=== PATIENT | female | born 1975 | race Caucasian/White ===

== ENCOUNTER → 2017-12-23 17:08 | Outpatient (CLI) | payer MEDICARE, BC, SELFPAY | PROVIDERS: Family Provider Family Medicine; PCP Family Medicine; Visit Provider Otolaryngology | DX: J32.9 Chronic sinusitis, unspecified (principal) | CPT/HCPCS: 87070; 87077; 87205 ==

== ENCOUNTER 2018-12-03 22:20 | Emergency (ER) | payer MEDICARE, BC, SELFPAY ==
[2018-12-03 22:22] VITALS: BP 143/103; PULSE 82; RESP 16; TEMP 37.4; O2SAT 98; BMI 22.1
--- NOTE | 2018-12-03 22:52 | ED.VISSUMM ---
- ER Visit Summary Date of Service: 12/03/18 Chief Complaint: Left knee pain and fever History of Present Illness: The patient is a 43 F history of renal transplant x2, hypertension, lupus. Patient had knee surgery done at [facility] in [place]. She stayed overnight and was discharged earlier today. States she had knee pain since the surgery. Today developed a fever as high as 101. Recently she did have a son that had viral syndrome. She denies any other complaints other than knee pain. No cough. No sore throat. No earache. No abdominal pain. No dysuria. Physical Examination: Well-appearing middle-age female. Vital signs are stable. Here her temperature is 99.3. She has been using Tylenol at home. She does not look septic or toxic. She is in no distress. HEENT exam unremarkable. Posterior pharynx moist and pink. No erythema or exudate. TMs are normal. Neck nontender no lymphadenopathy. Lungs clear to auscultation bilaterally. Heart regular rhythm no murmur. Rate about 80. Abdomen is soft and nontender. Normal bowel sounds no peritoneal signs. Extremities both upper and right lower extremities are unremarkable. With normal range of motion. I removed a large dressing from the left leg. Her left knee is swollen not unexpected after having knee surgery. The incision is dry and clean. The left knee is significantly warm to the touch. On the lateral aspect it is mildly red. She is able to do limited flexion but has discomfort with range of motion. Distal to her left knee surgery the calf is nontender. Left foot is neurovascularly intact with a palpable DP pulse. Neurologically she is awake and alert with no focal motor deficits. Test Results: CBC White count of 3.9. Hemoglobin 9.2 patient is chronically anemic and hemoglobin normally runs around 10. No bands. Chemistries unremarkable except creatinine 1.65 which is her baseline renal insufficiency. His sedimentation rate is normal at 10. Chest x-ray two-view shows no acute abnormality. No infiltrate. Urinalysis is pending. Emergency Department Course and Treatment: Patient is complex due to her renal transplant and being on immunosuppressant meds. Also the recent history of a family member with a viral syndrome however this patient does not have any viral symptoms. The knee is swollen which is common and expected after the surgery she had. Repeat exam at the patient came back from x-ray she is resting is much more comfortable after IV pain medication. The knees been now out of the dressing for some period of time and the swelling is unchanged. There is no cellulitis. The incision is dry and clean. And the warmth has decreased. This does not look infected. And there is no signs of a septic joint. Treatment Plan: I spoke to the orthopedic physician mine environmental engineer carmela from [facility] (Dr. Holt). He feels this is most likely a postop fever. He does not want me to start on any antibiotics. And he will send a message to the patient's orthopedic surgeon to ensure close follow-up this week. Discussed all this with the family. Continue her current pain regiment. Disposition: Discharge Impression: Acute fever status post left knee surgery Immunocompromised due to history of a renal transplant History of lupus This note was generated with [employer] dictation software. It may contain incorrect words, spelling, and punctuation that were not noted in review of the chart prior to signing ED Disposition - Plan for ED Patient: Chief Complaint: Fever Referrals: Enrique Cardoso MD [Primary Care Provider] -
--- NOTE | 2018-12-03 23:02 | ED.DCSUM_ITS ---
- ER Visit Summary Date of Service: 12/03/18 Chief Complaint: Left knee pain and fever History of Present Illness: The patient is a 43 F history of renal transplant x2, hypertension, lupus. Patient had knee surgery done at [facility] in [place]. She stayed overnight and was discharged earlier today. States she had knee pain since the surgery. Today developed a fever as high as 101. Recently she did have a son that had viral syndrome. She denies any other complaints other than knee pain. No cough. No sore throat. No earache. No abdominal pain. No dysuria. Physical Examination: Well-appearing middle-age female. Vital signs are stable. Here her temperature is 99.3. She has been using Tylenol at home. She does not look septic or toxic. She is in no distress. HEENT exam unremarkable. Posterior pharynx moist and pink. No erythema or exudate. TMs are normal. Neck nontender no lymphadenopathy. Lungs clear to auscultation bilaterally. Heart regular rhythm no murmur. Rate about 80. Abdomen is soft and nontender. Normal bowel sounds no peritoneal signs. Extremities both upper and right lower extremities are unremarkable. With normal range of motion. I removed a large dressing from the left leg. Her left knee is swollen not unexpected after having knee surgery. The incision is dry and clean. The left knee is significantly warm to the touch. On the lateral aspect it is mildly red. She is able to do limited flexion but has discomfort with range of motion. Distal to her left knee surgery the calf is nontender. Left foot is neurovascularly intact with a palpable DP pulse. Neurologically she is awake and alert with no focal motor deficits. Test Results: CBC White count of 3.9. Hemoglobin 9.2 patient is chronically anemic and hemoglobin normally runs around 10. No bands. Chemistries unremarka ble except creatinine 1.65 which is her baseline renal insufficiency. His sedimentation rate is normal at 10. Chest x-ray two-view shows no acute abnormality. No infiltrate. Urinalysis is pending. Emergency Department Course and Treatment: Patient is complex due to her renal transplant and being on immunosuppressant meds. Also the recent history of a family member with a viral syndrome however this patient does not have any viral symptoms. The knee is swollen which is common and expected after the surgery she had. Repeat exam at the patient came back from x-ray she is resting is much more comfortable after IV pain medication. The knees been now out of the dressing for some period of time and the swelling is unchanged. There is no cellulitis. The incision is dry and clean. And the warmth has decreased. This does not look infected. And there is no signs of a septic joint. Treatment Plan: I spoke to the orthopedic physician arson and bomb investigator tongiovanna from [facility] (Dr. Holt). He feels this is most likely a postop fever. He does not want me to start on any antibiotics. And he will send a message to the patient's orthopedic surgeon to ensure close follow-up this week. Discussed all this with the family. Continue her current pain regiment. Disposition: Discharge Impression: Acute fever status post left knee surgery Immunocompromised due to history of a renal transplant History of lupus This note was generated with [employer] dictation software. It may contain incorrect words, spelling, and punctuation that were not noted in review of the chart prior to signing ED Disposition - Plan for ED Patient: Chief Complaint: Fever Referrals: Enrique Cardoso MD [Primary Care Provider] -
[2018-12-03 23:26] LABS: Absolute Lymphocyte Count 1.29 X10^3/ul (0.83-4.51); Absolute Neutrophil Count 2.1 X10^3/uL (2.0-7.7); Basophil# 0.01 X10^3/uL; Basophil% 0.3 % (0-1); Eosinophil# 0.04 X10^3/uL; Hematocrit 28.5 % (37-47); Hemoglobin 9.2 g/dl (12.0-15.0); Lymphocyte # 1.29 X10^3/ul (4.0); Lymphocyte % 32.9 % (19-41); Mean Corp Hgb Conc 32.3 g/gl (32-36); Mean Corpuscular Hgb 29.6 pg (27.0-32.0); Mean Corpuscular Volume 91.6 fL (81-99); Mean Platelet Vol. 9.3 fl (6.2-12.0); Monocyte# 0.49 X10^3/uL; Monocyte% 12.5 % (0-10); Neutrophil # 2.08 X10^3/uL (2.7-7.7); POSITIVE COUNT NO; POSITIVE DIFFERENTIAL NO; POSITIVE MORPHOLOGY NO; Platelet Count 160 K/mm3 (150-450); RBC Distribution Width SD 41.6 fl (35.1-43.9); Red Blood Count 3.11 M/mm3 (4.2-5.4); White Blood Count 3.9 K/mm3 (4.4-11.0)
[2018-12-03] MEDS: HYDROmorphone 1 MG/ML Syringe IV (23:26)
[2018-12-03] MEDS: Ondansetron 4 MG/2 ML Vial IV (23:26)
[2018-12-03 23:36] LABS: Anion Gap 9 (5-15); BUN 28 mg/dL (7-18); Calcium,Total 8.9 mg/dL (8.5-10.1); Chloride 111 mmol/L (98-107); Creatinine, Serum 1.65 mg/dL (0.55-1.02); EST Glomerular Filtration Rate 36 mL/min (>60); Est Glom Filt Rate - Afr Amer 43 mL/min (>60); Estimated Creatinine Clearance 35.99 ml/min; Glucose 93 mg/dL (74-106); Potassium 3.9 mmol/L (3.5-5.1); Sodium Level 142 mmol/L (136-145)
[2018-12-03 23:37] LABS: Erythrocyte Sedimentation Rate 10 mm/hr (0-20)
--- NOTE | 2018-12-03 23:45 | RAD_ITS ---
HISTORY: S/P PARTIAL KNEE REPLACEMENT YESTERDAY. UNCONTROLLED PAIN AND NEW ONSET FEVER. HX OF KIDNEY TRANSPLANT. EXAM: XR Chest 2 Views: COMPARISON: None FINDINGS: # of images incl. paperwork: 2 LINES/DEVICES: Right subclavian central venous catheter, tip distal SVC. LUNGS: Radiographically clear. No consolidation, edema or effusion. No pneumothorax. MEDIASTINUM AND CARDIOVASCULAR STRUCTURES: Cardiac silhouette not enlarged. Central airways and mediastinal contour are unremarkable. BONES AND SOFT TISSUES: Unremarkable. RAD/Chest PA and Lateral IMPRESSION: No radiographic evidence of acute cardiopulmonary disease. at 0004 Reported and signed by: Pee Deng MD Electronically Signed: Pee Deng, at 0:03 EST Tel , Service support ,
--- NOTE | 2018-12-04 00:01 | ED.RN ---
[facility] contacted for transfer
[2018-12-04 00:05] LABS: Bacteria 0 SEEN /hpf (None Seen); Mucous, Urine 0 SEEN /hpf (<or=2+); Red Blood Cells-Urine 0 SEEN /hpf (0-5)
[2018-12-04 00:16] LABS: Color, Urine Yellow (Yellow); Glucose, Dipstick Normal (Normal); Ketone-Dipstick Negative (Negative); Leukocyte Esterase-Dipstick 500 /ul (Negative); Nitrite-Dipstick Negative (Negative); Occult Blood-Urine Negative /ul (Negative); Protein-Dipstick 100 mg/dl (Negative); Urine Bilirubin Dipstick Negative (Negative); Urine Clarity Clear (Clear); Urine Urobilinogen Normal (Normal)
[2018-12-04 00:18] LABS: Squamous Epithelial Cells - UA 5-10 SEEN /hpf (5-10); White Blood Cells 0-5 SEEN /hpf (0-5)
--- NOTE | 2018-12-04 00:20 | ED.DEP ---
ED Disposition - Plan for ED Patient: Disposition: Home or Assisted Living Chief Complaint: Fever Additional Instructions: Ice and elevate your left knee to decrease pain and swelling. Continue your current pain medications. You may use up to 2 Percocet every 4 hours. Call and follow-up with your [facility] orthopedic surgeon on Thursday. Return to the emergency department if feeling worse.
--- NOTE | 2018-12-04 00:24 | DCINST.ED_ITS ---
ED Disposition - Plan for ED Patient: Disposition: Home or Assisted Living Chief Complaint: Fever Additional Instructions: Ice and elevate your left knee to decrease pain and swelling. Continue your current pain medications. You may use up to 2 Percocet every 4 hours. Call and follow-up with your [facility] orthopedic surgeon on Thursday. Return to the emergency department if feeling worse.
[2018-12-04 01:00] VITALS: BP 144/99; PULSE 81; RESP 18; O2SAT 95
--- NOTE | 2018-12-04 01:01 | ED.RN ---
PORT D/C PER PROTOCOL.
--- OUTSIDE RECORDS SUMMARY | 2019-02-07 08:52 | XMS RPT_ITS ---
:1975 Author Organization OHIP Care Team Providers Name Role Phone MELVIN, GALLITO Admitting Unavailable MINIACI, GALLITO Attending Unavailable MINIACI, GALLITO Admitting Unavailable MINIACI, GALLITO Attending Unavailable FATICA, EDGARDO Referring Unavailable MASCI, SCHUYLER A Referring Unavailable MASCI, SCHUYLER A Referring Unavailable MASCI, SCHUYLER A Referring Unavailable MASCI, SCHUYLER A Referring Unavailable MASCI, SCHUYLER A Referring Unavailable MASCI, SCHUYLER A Referring Unavailable MASCI, SCHUYLER A Referring Unavailable MASCI, SCHUYLER Vigil Referring Unavailable FATICA, EDGARDO Attending Unavailable FATICA, EDGARDO Referring Unavailable MASCI, SCHUYLER A Referring Unavailable FATICA, EDGARDO Referring Unavailable FATICA, EDGARDO Referring Unavailable MASCI, SCHUYLER A Referring Unavailable MASCI, SCHUYLER Vigil Referring Unavailable FATICA, EDGARDO Referring Unavailable MASCI, SCHUYLER A Referring Unavailable MASCI, SCHUYLER A Referring Unavailable FATICA, EDGARDO Referring Unavailable MASCI, SCHUYLER A Referring Unavailable MASCI, SCHUYLER A Referring Unavailable MASCI, SCHUYLER A Referring Unavailable FATICA, EDGARDO Referring Unavailable MINIACI, GALLITO Attending Unavailable MASCI, SCHUYLER A Referring Unavailable MASCI, SCHUYLER A Referring Unavailable MASCI, SCHUYLER Vigil Referring Unavailable MINIACI, GALLITO Referring Unavailable MINIACI, GALLITO Attending Unavailable MASCI, SCHUYLER A Referring Unavailable FATICA, EDGARDO Referring Unavailable MASCI, SCHUYLER A Referring Unavailable MASCI, SCHUYLER A Referring Unavailable MASCI, SCHUYLER A Referring Unavailable FATICA, EDGARDO Referring Unavailable MASCI, SCHUYLER A Referring Unavailable FATICA, EDGARDO Referring Unavailable MASCI, SCHUYLER A Referring Unavailable MASCI, SCHUYLER A Referring Unavailable FATICA, EDGARDO Referring Unavailable MASCI, SCHUYLER A Referring Unavailable FATICA, EDGARDO Referring Unavailable MASCI, SCHUYLER A Referring Unavailable MASCI, SCHUYLER A Referring Unavailable MASCI, SCHUYLER A Referring Unavailable MASCI, SCHUYLER Vigil Attending Unavailable MASCI, SCHUYLER Vigil Referring Unavailable MASCI, SCHUYLER A Referring Unavailable MASCI, SCHUYLER A Referring Unavailable FATICA, EDGARDO Attending Unavailable FATICA, EDGARDO Referring Unavailable MASCI, SCHUYLER A Referring Unavailable FATICA, EDGARDO Referring Unavailable MASCI, SCHUYLER A Referring Unavailable MASCI, SCHUYLER A Referring Unavailable MASCI, SCHUYLER A Referring Unavailable FATICA, EDGARDO Referring Unavailable FATICA, EDGARDO Referring Unavailable FATICA, EDGARDO Referring Unavailable MINIACI, GALLTIO Referring Unavailable CABANFAUZIA (PA) Referring Unavailable MASCI, SCHUYLER A Referring Unavailable MASCI, SCHUYLER A Referring Unavailable MASCI, SCHUYLER A Referring Unavailable FATICA, EDGARDO Referring Unavailable FATICA, EDGARDO Referring Unavailable CLARISSA LEONARD ([place]) Attending Unavailable MINIACI, GALLITO Referring Unavailable FATICA, EDGARDO Referring Unavailable FATICA, EDGARDO Referring Unavailable MASCI, SCHUYLER A Referring Unavailable FATICA, EDGARDO Referring Unavailable MASCI, SCHUYLER A Referring Unavailable SANDY TRAVIS (JESÚ[place]) Attending Unavailable MINIACI, GALLITO Referring Unavailable MASCI, SCHUYLER A Referring Unavailable FATICA, EDGARDO Referring Unavailable FATICA, EDGARDO Referring Unavailable MASCI, SCHUYLER A Referring Unavailable MINIACI, GALLITO Attending Unavailable MINIACI, GALLITO Referring Unavailable MINIACI, GALLITO Referring Unavailable MINIACI, GALLITO Attending Unavailable MINIACI, GALLITO Referring Unavailable MASCI, SCHUYLER A Referring Unavailable FATICA, EDGARDO Referring Unavailable MASCI, SCHUYLER A Referring Unavailable MINIACI, GALLITO Referring Unavailable Enrique Cardoso Primary Care Unavailable Raimundo Cooper Attending Unavailable Storm Khanna Attending Unavailable Enrique Cardoso Primary Care Unavailable PROBLEMS PROBLEMS DATE TYPE CONDITION / CODE ATTENDING STATUS SOURCE 12/02/2018 Active Other acute MINIACI, Active [facility] postprocedural pain GALLITO Other [place] / G89.18(ICD-10) Repository 10/19/2018 Active Unilateral primary NA Active [facility] osteoarthritis, [place] unspecified knee / Repository M17.10(ICD-10) 10/13/2018 Active Chronic kidney NA Active [facility] disease, stage 4 [place] (severe) / Repository N18.4(ICD-10) 08/30/2018 Active Loose body in knee, MINIACI, Active [facility] unspecified knee / GALLITO Other [place] M23.40(ICD-10) Repository 08/24/2018 Active Osteonecrosis, MINIACI, Active [facility] unspecified / GALLITO Other [place] M87.9(ICD-10) Repository 08/30/2018 Active Encounter for other NA Active [facility] preprocedural [place] examination / Repository Z01.818(ICD-10) 02/24/2015 Active Kidney transplant EDGARDO NGUYEN Active [facility] status / [place] Z94.0(ICD-10) Repository 04/13/2018 Active Osteomyelitis, NA Active [facility] unspecified / [place] M86.9(ICD-10) Repository 01/19/2018 Active Encounter for EDGARDO NGUYEN Active [facility] screening for other [place] disorder / Repository Z13.89(ICD-10) 12/17/2017 Active Encounter for NA Active [facility] aftercare following [place] other organ Repository transplant / Z48.298(ICD-10) 12/17/2017 Active Encounter for NA Active [facility] therapeutic drug [place] level monitoring / Repository Z51.81(ICD-10) 12/17/2017 Active 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 Active [facility] (current) drug [place] therapy / Repository Z79.899(ICD-10) 12/17/2017 Active Vitamin D NA Active [facility] deficiency, [place] unspecified / Repository E55.9(ICD-10) 12/17/2017 Active Other specified NA Active [facility] hypothyroidism / [place] E03.8(ICD-10) Repository 12/17/2017 Active Viral infection, NA Active [facility] unspecified / [place] B34.9(ICD-10) Repository 12/17/2017 Active Chronic kidney NA Active [facility] disease, unspecified [place] / N18.9(ICD-10) Repository 12/17/2017 Active Anemia in chronic NA Active [facility] kidney disease / [place] D63.1(ICD-10) Repository 12/17/2017 Active Unknown / NA Active [facility] UNK(Unknown) [place] Repository PROCEDURES PROCEDURES No Procedure Records FoundRESULTS RESULTS EMERGENCY DEPARTMENT Observed: 12/04/2018 Status: F Source: [place] SUMMARY 12:28 AM [facility] [place] [facility] Medical Records Department [address] [place] [address] [place] [address] Emergency Department Summary 12/03/18 2252 MR#: [id number] Acct: [id number] Name: ASHOK SAUCEDA Rep #: [id number] : 1975 43 From: Raimundo Cooper MD PCP: Enrique Cardoso MD Status: REG ER ADDENDUM by Raimundo Cooper MD on 12/04/18 at 0028 Urinalysis return was normal. Patient will be discharged home. 12/04/18 0028 Date Raimundo Cooper MD cc: Enrique Cardoso MD; Enrique Cardoso MD * Signed - ER Visit Summary Date of Service: 12/03/18 Chief Complaint: Left knee pain and fever History of Present Illness: The patient is a 43 F history of renal transplant x2, hypertension, lupus. Patient had knee surgery done at [facility] in [place]. She stayed overnight and was discharged earlier today. States she had knee pain since the surgery. Today developed a fever as high as 101. Recently she did have a son that had viral syndrome. She denies any other complaints other than knee pain. No cough. No sore throat. No earache. No abdominal pain. No dysuria. Physical Examination: Well-appearing middle-age female. Vital signs are stable. Here her temperature is 99.3. She has been using Tylenol at home. She does not look septic or toxic. She is in no distress. HEENT exam unremarkable. Posterior pharynx moist and pink. No erythema or exudate. TMs are normal. Neck nontender no lymphadenopathy. Lungs clear to auscultation bilaterally. Heart regular rhythm no murmur. Rate about 80. Abdomen is soft and nontender. Normal bowel sounds no peritoneal signs. Extremities both upper and right lower extremities are unremarkable. With normal range of motion. I removed a large dressing from the left leg. Her left knee is swollen not unexpected after having knee surgery. The incision is dry and clean. The left knee is significantly warm to the touch. On the lateral aspect it is mildly red. She is able to do limited flexion but has discomfort with range of motion. Distal to her left knee surgery the calf is nontender. Left foot is neurovascularly intact with a palpable DP pulse. Neurologically she is awake and alert with no focal motor deficits. Test Results: CBC White count of 3.9. Hemoglobin 9.2 patient is chronically anemic and hemoglobin normally runs around 10. No bands. Chemistries unremarkable except creatinine 1.65 which is her baseline renal insufficiency. His sedimentation rate is normal at 10. Chest x-ray two-view shows no acute abnormality. No infiltrate. Urinalysis is pending. Emergency Department Course and Treatment: Patient is complex due to her renal transplant and being on immunosuppressant meds. Also the recent history of a family member with a viral syndrome however this patient does not have any viral symptoms. The knee is swollen which is common and expected after the surgery she had. Repeat exam at the patient came back from x-ray she is resting is much more comfortable after IV pain medication. The knees been now out of the dressing for some period of time and the swelling is unchanged. There is no cellulitis. The incision is dry and clean. And the warmth has decreased. This does not look infected. And there is no signs of a septic joint. Treatment Plan: I spoke to the orthopedic physician metal bonder carmela from [facility] (Dr. Holt). He feels this is most likely a postop fever. He does not want me to start on any antibiotics. And he will send a message to the patient's orthopedic surgeon to ensure close follow-up this week. Discussed all this with the family. Continue her current pain regiment. Disposition: Discharge Impression: Acute fever status post left knee surgery Immunocompromised due to history of a renal transplant History of lupus This note was generated with [employer] dictation software. It may contain incorrect words, spelling, and punctuation that were not noted in review of the chart prior to signing ED Disposition - Plan for ED Patient: Chief Complaint: Fever Referrals: Enrique Cardoso MD [Primary Care Provider] - What to do if you have Problems For any increased pain, shortness of breath, bleeding, nausea or vomiting, chest pain, or any unexpected problems, contact your Primary Care Provider. Call [facility] ([phone]) or report to the closest Emergency Room. Call 911 if necessary. 12/04/18 0026 <Electronically signed by Raimundo Cooper MD> Date Raimundo Cooper MD Cosigner Signature (If Indicated): Date CC: Enrique Cardoso MD; Enrique Cardoso MD DISCHARGE INSTRUCTION Observed: 12/04/2018 Status: F Source: [place] 12:26 AM [facility] [place] [facility] Medical Records Department [address] [place] [address] Discharge Instruction 12/04/18 0020 MR#: [id number] Acct: [id number] Name: ASHOK SAUCEDA Rep #: [id number] : 1975 43 From: Raimundo Cooper MD PCP: Enrique Cardoso MD Status: REG ER ED Disposition - Plan for ED Patient: Disposition: Home or Assisted Living Chief Complaint: Fever Additional Instructions: Ice and elevate your left knee to decrease pain and swelling. Continue your current pain medications. You may use up to 2 Percocet every 4 hours. Call and follow-up with your [facility] orthopedic surgeon on Thursday. Return to the emergency department if feeling worse. What to do if you have Problems For any increased pain, shortness of breath, bleeding, nausea or vomiting, chest pain, or any unexpected problems, contact your Primary Care Provider. Call [facility] ([phone]) or report to the closest Emergency Room. Call 911 if necessary. 12/04/18 0026 <Electronically signed by Raimundo Cooper MD> Date Raimundo Cooper MD Cosigner Signature (If Indicated): Date CC: Enrique Cardoso MD; Enrique Cardoso MD URINALYSIS, COMPLETE Collected: 12/04/2018 Status: F Source: [place] 12:02 AM [facility] [place] Order Comment: How was Urine Obtained? CLEAN CATCH TYPE CODE TESTS RESULT OUT OF RANGE REFERENCE UNITS LAB L400.3000 Yellow COLOR Normal Yellow LAB L400.3050 Clear Normal CLARITY Clear LAB L400.3200 Normal mg/dl Normal GLUCOSE, UR Normal LAB L400.3300 Negative mg/dL Normal BILIRUBIN URINE Negative LAB L400.3400 Negative mg/dl Normal KETONE UR Negative LAB L400.3465 1.002-1.030 Normal SP.GR. DIPSTX 1.020 LAB L400.3550 5.0 - 8.0 pH UR Normal 6.0 LAB L400.3600 Negative mg/dl High PROT DIPSTX 100 LAB L400.3700 Normal mg/dl Normal UROBILI Normal LAB L400.3750 Negative Normal NITRITE UR Negative LAB L400.3780 Negative /ul Normal OCCULT BLOOD-UR Negative LAB L400.3800 Negative /ul High LEUK ESTERASE 500 LAB L400.4050 0-5 /hpf WBC Normal 0-5 SEEN LAB L400.4100 0-5 /hpf 0 Normal RBC-UA SEEN LAB L400.4150 5-10 /hpf SQUAM Normal EPI 5-10 SEEN LAB L400.4300 None Seen /hpf 0 Normal BACTERIA SEEN LAB L400.4350 <or=2+ /hpf 0 Normal MUCUS, URINE SEEN Performed By: #### L400.0001 #### [facility] [address] [place], [place], [address] Observed: 12/03/2018 Status: F Source: [place] CULTURE, BLOOD (WB) 11:22 PM [facility] No growth in 5 days. Performed By: #### M200.1000 #### [facility] [address] [place], [place], [address] Observed: 12/03/2018 Status: F Source: [place] CULTURE, BLOOD (WB) 11:16 PM [facility] No growth in 5 days. Performed By: #### M200.1000 #### [facility] [address] [place], [place], [address] CBC W/DIFF, AUTOMATED Collected: 12/03/2018 Status: F Source: [place] 11:14 PM [facility] [place] TYPE CODE TESTS RESULT OUT OF RANGE REFERENCE UNITS LAB L100.1000 4.4-11.0 K/mm3 Low WBC 3.9 LAB L100.1200 4.2-5.4 M/mm3 Low RBC 3.11 LAB L100.1300 12.0-15.0 g/dl Low HGB 9.2 LAB L100.1400 37-47 % Low HCT 28.5 LAB L100.1500 81-99 fL Normal MCV 91.6 LAB L100.1600 27.0-32.0 pg Normal MCH 29.6 LAB L100.1700 32-36 g/gl Normal MCHC 32.3 LAB L100.1810 11.6-14.6 % Normal RDW CV 13.0 LAB L100.1820 35.1-43.9 fl Normal RDW SD 41.6 LAB L100.1900 150-450 K/mm3 Normal PLT 160 LAB L100.2000 6.2-12.0 fl Normal MPV 9.3 LAB L100.2100 47-70 % Normal NEUT% 53.0 LAB L100.2200 19-41 % Normal LY% 32.9 LAB L100.2300 0-10 % High MONO% 12.5 LAB L100.2400 0-5 % Normal EO% 1.0 LAB L100.2500 0-1 % Normal BASO% 0.3 LAB L100.2550 0.0-0.9 % Normal IM GRAN % 0.300 Result Comment: IG% - Immature Granulocytes (promyelocytes, myelocytes and metamyelocytes) > 1% indicates that a LEFT SHIFT is Present. LAB L100.2620 2.0-7.7 X10 3/uL Normal Absolute Neut 2.1 LAB L100.2720 0.83-4.51 X10 3/ul Normal Absolute Lymph 1.29 Performed By: #### L100.0100, L101.9900 #### [facility] [address], [address] ERYTHROCYTE SED RATE Collected: 12/03/2018 Status: F Source: [place] 11:14 PM [facility] [place] TYPE CODE TESTS RESULT OUT OF RANGE REFERENCE UNITS LAB L102.0000 0-20 mm/hr Normal SED RATE 10 Performed By: #### L100.0100, L101.9900 #### [facility] [address] [place], [address] BASIC METABOLIC Collected: 12/03/2018 Status: F Source: [place] PROFILE (BMP) 11:14 PM [facility] [place] TYPE CODE TESTS RESULT OUT OF RANGE REFERENCE UNITS LAB L501.0100 74-106 mg/dL Normal GLU 93 Result Comment: Please note revised GLUCOSE reference range effective 2017. LAB L501.1000 7-18 mg/dL High BUN 28 LAB L501.1100 0.55-1.02 mg/dL High CREAT,SERUM 1.65 Result Comment: The validity of the calculated GFR AND GFRAA in patients over 70 years has not been determined. Clinical correlation is essential. LAB L501.1110 >60 mL/min Low EST GFR 36 Result Comment: Non- GFR Calc LAB L501.1115 >60 mL/min Low EST GFR - AA 43 Result Comment: GFR Calc LAB L501.1255 ml/min Normal Estimated CRCL 35.99 LAB L501.1300 10-20 RATIO Normal BUN/CRE 17.0 LAB L501.2200 8.5-10 mg/dL Normal .1 CA 8.9 LAB L501.5300 136-14 mmol/L Normal 5 NA 142 LAB L501.5600 3.5-5. mmol/L Normal 1 K 3.9 LAB L501.5900 98-107 mmol/L High CL 111 LAB L501.6100 21.0-3 mmol/L Normal 2.0 CO2 22.0 LAB L501.6200 5-15 Normal GAP 9 Performed By: #### L500.2500 #### [facility] [address] [place], [address] CHEST PA AND LATERAL Observed: 12/03/2018 Status: F Source: [place] 10:52 PM [facility] [place] [facility] Imaging Services [address] [place] [address] Chest PA and Lateral MR#: [id number] Acct: [id number] Name: ASHOK SAUCEDA Rep #: [id number] : 1975 F 43 From: Pee Deng MD PCP: Enrique Cardoso MD Status: REG ER Study: Chest PA and Lateral Date of Exam: 12/03/18 Exam# [id number] Ordering Dr: Raimundo Cooper MD HISTORY: S/P PARTIAL KNEE REPLACEMENT YESTERDAY. UNCONTROLLED PAIN AND NEW ONSET FEVER. HX OF KIDNEY TRANSPLANT. EXAM: XR Chest 2 Views: COMPARISON: None FINDINGS: # of images incl. paperwork: 2 LINES/DEVICES: Right subclavian central venous catheter, tip distal SVC. LUNGS: Radiographically clear. No consolidation, edema or effusion. No pneumothorax. MEDIASTINUM AND CARDIOVASCULAR STRUCTURES: Cardiac silhouette not enlarged. Central airways and mediastinal contour are unremarkable. BONES AND SOFT TISSUES: Unremarkable. RAD/Chest PA and Lateral IMPRESSION: No radiographic evidence of acute cardiopulmonary disease. at 0004 Reported and signed by: Pee Deng MD Electronically Signed: Pee Deng, at 0:03 EST Tel , Service support , CC: Enrique Cardoso MD; Raimundo Cooper MD Molding And Trim Installer: Signed NURSING PROG Observed: 12/03/2018 Status: COMPLETED Source: [place] 3:06 PM CLINIC OTHER CAMPUS REPOSITORY HNO ID: [id number] Author: Nancy (Rn) JOSH Guan Service: (none) Author Type: Registered Nurse Type: Nursing Progress Note Filed: 12/03/2018 5:07 PM Note Text: Nursing Progress Note Patient Name: Ashok Sauceda Patient Location: [id number]/-[id number]* Daily Note:1336 Pt tearful at this time. Stating that she is in a lot of pain still. Stated that she wants to be honest and took another oxycodone 15 minutes after we gave her one because it didn't work. and patient concerned with patient going home with this much pain. Lisbet HOUSING ASSISTANT ordered 2 [place] but d/c because pt will not be able to filled so d/c. Paged Kirill ESPINOSA. 2260 Kirill ESPINOSA returned page. Stated to page Fellow that rounded on pt this am. Paged Natali Fellow. [phone] returned page. Paged Dr. Virk. 1432 [address] returned page. Paged Dr. Roy. This note was completed by: Nancy Guan RN THERAPY NT Observed: 12/03/2018 Status: COMPLETED Source: [place] 12:29 PM CLINIC OTHER CAMPUS REPOSITORY HNO ID: [id number] Author: Juliet (Pt) Landon Service: Physical Therapy Author Type: Physical Therapist Type: Therapy (PT/OT/Speech/Resp) Filed: 12/03/2018 12:36 PM Note Text: Physical Therapy Evaluation SERVICE DATE: 12/03/2018 SERVICE TIME: 1000 to 1038 ROOM: [place] [address] Recommended Discharge Disposition: Outpatient Physical Therapy (as deemed appropriate by ortho MD) Anticipated Discharge Needs: Physical Assist at Home Physical Assist at Home for: Cleaning;Laundry;Shopping;Transportation Recommended Discharge Equipment: Wheeled Walker PT Recommendations to Nursing: Ambulate with device;To bathroom;Transfer to/from chair;OOB for Meals;With assist of 1 person Device: Wheeled Walker PT 6 Clicks Score: 22 Precautions/Activity Restrictions: Weight Bearing Restrictions Extremity With Weight Bearing Restricted: Left Lower Extremity Left Lower Extremity Weight Bearing Status: NWB (x 48 hours then WBAT) Per ortho note: NWB for 48 hours, thereafter WBAT Start range of motion at toes, ankle pumps and isometric quad sets today Gentle range of motion at knee at 48 hours post op ASSESSMENT : Patient presents with left diagnostic arthroscopy, lateral femoral condyle resurfacing. Requires skilled PT for gait/stair training and patient education to maximize functional [place] and safety for return to home with support of spouse as needed. Patient Disposition at Start of Session: Supine in Bed;Call [facility] in Reach Patient Disposition at End of Session: Supine in Bed;Call Stewart in Reach Tolerated Full Session (pain) Physical Therapy Problem List: Decreased Range Of Motion;Functional Mobility Impairment;Pain Patient /Caregiver Goals: Go Home Goals for Plan of Care: Able to perform HEP with: Independent Transfer supine to/from sit with: Independent Transfer sit to/from stand with: Independent Ambulate with: Modified Independent Distance: 50 ft Device: Crutch(es);Wheeled Walker Ambulate up and down steps with: Supervision Number of steps: 2 Device: Crutch(es);Rail Car transfer with: Verbal Cues Only Rehab Potential: Excellent PLAN: Treatment Frequency (times per week): 7 Current admission Treatment Interventions: Education;Functional Mobility Training Plan of Care developed with: Patient TREATMENT INTERVENTIONS: Therapy Diagnosis: Abnormalities of gait and mobility-other Interventions Provided: Evaluation;Therapeutic Exercise (40293);Therapeutic Activity (51907);Gait Training (22839) $ Evaluation-Low (60602) Billed Units: 1 unit Therapeutic Exercise (77406) Treatment Minutes: 8 1 unit Skilled Intervention(s): Instruction in therapeutic exercise for antiembolic ex, performed AP, QS with 3 second hold and GS x 10 reps each. Verbal and tactile cuing provided for proper performance, also educated on addition of gentle ROM ex to knee after 48 hours. Issued written HEP for same Therapeutic Activity (96520) Treatment Minutes: 8 1 unit Skilled Intervention(s): Instructed patient in supine to sit pushing with upper extremities to sit up Instructed patient in sit to supine using safe, effective technique Instruction in sit to stand technique with proper hand placement and body positioning at edge of bed/chair Instruction in stand to sit technique with lower extremities touching chair/bed and reaching back for surface Instruction in transfer to/from commode, walker safety, WBing reminders Reviewed proper car transfer technique using Tech Back Method Gait Training (47331) Treatment Minutes: 7 Skilled Intervention(s): Instruction in sequencing, gait pattern, Instruction in WB precautions, Instruction in use of equipment, cues for sequence and pattern and education regarding NWB x 48 hours then WBAT per ortho orders Review sequencing and safety for stair climbing Total Timed Code Treatment Minutes: 23 Total Treatment Time (minutes): 38 FUNCTIONAL G CODE: PT 6 Clicks Score: 22 (12/03/18 1000) Based on clinical assessment and the score on the 6 Clicks Functional Assessment Tool, the G code and corresponding severity modifiers are documented above. Physician signature certifies treatment plan of care established above for the period of 12/03/2018 through 12/17/2018. SUBJECTIVE: Current Hospital Course: Chart reviewed; 43 y/o female with Avascular necrosis and loose bodies of left knee lateral femoral condyle. S/p left diagnostic arthroscopy, lateral femoral condyle resurfacing Reason for Physical Therapy Consult : post surgery care Relevant Past Medical History: DM, ESRD, HTN, kidney transplant 2006 + 2011 Patient Report: limited by pain however improving with changes to medication schedule Home Environment Patient Lives With: Spouse Assistance Available: pipe welder (mother in law also available) Entry To Home: Stairs;With Rail Number Of Stairs Into Home: 2 Number Of Stairs To Bed/Bath: 0 Tub/Shower Type: walk-in shower + bench Laundry: will have assist Equipment Owned: Crutch(es);Shower Bench Prior Functional Level: Within Functional Limits Prior Functional Level Comments: Indep ADLs/IADLs, no DME OBJECTIVE: Range of Motion: Lower Extremity Comments Right Lower Extremity ROM Comments: WNL Left Lower Extremity ROM Comments: WFL except gentle ROM knee flexion/extension AFTER 48 HOURS Strength: Lower Extremity Comments Right Lower Extremity Strength Comments: WNL Left Lower Extremity Strength Comments: WFL at hip and ankle, knee NT CURRENT FUNCTIONAL STATUS: Current Functional Mobility Assist Level Additional Information Rolling Independent Supine to Sit Modified Independent (increased time, uses UEs to assist LLE in/out of bed) Sit to Supine Modified Independent Scooting Modified Independent Sit to Stand Verbal Cues Only (cues for sequencing, initial reminder for NWB LLE) Stand to Sit Verbal Cues Only Bed to Chair Toilet/Commode Stand By Assistance Gait Stand By Assistance Gait Device: Wheeled Walker Gait Distance (feet): 15 x 1 and 5 ft x 2 (distance limited by pain) Stairs Curb Step Car Transfer -M: 6: Walk 10 steps or more Please see discipline specific clinical documentation flowsheet for complete details for this therapy evaluation/treatment. SIGNATURE: Juliet Navarrete PT PATIENT NAME: Ashok Sauceda DATE: December 03, 2018 TIME: 12:29 PM NURSING PROG Observed: 12/03/2018 Status: COMPLETED Source: [place] 10:34 AM CLINIC OTHER CAMPUS REPOSITORY HNO ID: [id number] Author: Tamie Hendrix LPN Service: (none) Author Type: LICENSED NURSE Type: Nursing Progress Note Filed: 12/03/2018 3:22 PM Note Text: Nursing Progress Note Patient Name: Ashok Sauceda Patient Location: [id number]* Daily Note:No reports of chest pain, s.o.b, calf tenderness. Appetite good without n/v or difficulty swallowing. Compliant with meds, Oxycodone in use for pain mgmt. IVF stopped. [place] intact to LLE, n/v wnl. 1 person assist with activity and use of walker, seen by Physical therapy. For d/c to home this afternoon, RX faxed to pharmacy. 1300--Appetite fair for lunch. Walker issued for home going use by PT. Med port de-accessed per RN. Bedside pharmacy service delivered RX, meds reviewed per RN, printed home going instructions and meds reviewed. Ready for d/c. 1315--Requested to speak to RN, pt informed nurse pain wasn't managed and she took 1 Oxycodone from delivered RX at bedside and wanted to be honest about it pt and raising concerns regarding d/c and pain mgmt, calls out to [facility], residents and physicians. 1500--No reply from physicians, pt wanting to go home stating scheduled Tylenol that was given helped pain control. Minimal assist to commode. Ready for d/c. This note was completed by: Tamie Hendrix LPN PROGRESS Observed: 12/03/2018 Status: COMPLETED Source: [place] 8:49 AM CLINIC OTHER CAMPUS REPOSITORY HNO ID: [id number] Author: Natali Fleming Service: Orthopaedic Surgery Author Type: Resident Type: Progress Notes Filed: 12/03/2018 8:51 AM Note Text: ORTHOPAEDIC SURGERY POST-OP PROGRESS NOTE December 03, 2018 8:49 AM Procedure: Procedure(s) and Anesthesia Type: * ARTHROSCOPY KNEE ARTICULAR CARTILAGE SHAVING OR DEBRIDEMENT - General * ARTHROPLASTY KNEE CONDYLE AND PLATEAU MEDIAL OR LATERAL - General (Date: 12/02/2018) Subjective: Pain controlled, no nausea/vomiting, no chest pain, no shortness of breath. Vitals: BP 157/84 Pulse 69 Temp 36.9 ?C (98.5 ?F) (Oral) Resp 18 Ht 160 cm (5' 3) Wt 56.7 kg (125 lb) SpO2 97% BMI 22.14 kg/m? Intake/Output Summary (Last 24 hours) at 12/03/18 0849 Last data filed at 12/03/18 0511 Gross per 24 hour Intake 1090 ml Output 855 ml Net 235 ml Physical Examination: General: alert/oriented x3, in no apparent distress Lower Ext: LLE: 5/5 ankle plantar/dorsiflex RLE: 5/5 ankle plantar/dorsiflex SILT saphenous, PFCN, LFCN, sural, DP, SP, plantar (L1-S1 intact) 2+ DP, PT pulses bilat, feet/toes warm bilat; <2sec CR Lab: CBC, Coags, BMP, Mg, Phos Impression/Plan: POD 1 s/p left lateral femoral condyle resurfacing - Physical Therapy: NWB for 48 hours, thereafter WBAT. Start range of motion at toes, ankle pumps and isometric quad sets today, Gentle range of motion at knee at 48 hours post op - Diet: regular - Pain control: oxycodone - Dressing management: remove after 48 hours - Davis: none - DVT prophylaxis: IPCD and ASA - Antibiotic: ancef periop - Case management for discharge planning - Disposition: home today 12/03/2018 Natali Fleming MD Orthopaedic Surgery Resident PGY-4 NURSING PROG Observed: 12/03/2018 Status: COMPLETED Source: [place] 12:36 AM CLINIC OTHER CAMPUS REPOSITORY O ID: [id number] Author: Lisa (Rn) JOSH Lim Service: (none) Author Type: Registered Nurse Type: Nursing Progress Note Filed: 12/03/2018 12:45 AM Note Text: Nursing Progress Note Patient Name: Ashok Sauceda Patient Location: /* 2100- Patient voicing better pain management with IV Dilaudid. Up to BSC with 1 assist, tolerated well. This note was completed by: Lisa Lim RN NURSING PROG Observed: 12/02/2018 Status: COMPLETED Source: [place] 7:06 PM [facility] OTHER CAMPUS REPOSITORY HNO ID: [id number] Author: Nancy BarksdaleRn) JOSH Guan Service: (none) Author Type: Registered Nurse Type: Nursing Progress Note Filed: 12/02/2018 7:13 PM Note Text: Nursing Progress Note Patient Name: Ashok Sauceda Patient Location: [id number]/* Daily Note:1541 Pt attempting to go to the bathroom but is in too much pain. States that she feels as though the pain medications are not even touching the pain. Dr. Charles paged. 1608 Dr. Virk did not return page re paged at this time. 1626 Dr. Virk did not return page. Re paged at this time. 1700 Dr. Virk did not return page. Re paged at this time. 1751 Dr. Virk did not return page. Paged resident for orthopedic surgery. This note was completed by: Nancy Guan RN PROGRESS Observed: 12/02/2018 Status: COMPLETED Source: [place] 1:57 PM [facility] [place] REPOSITORY HNO ID: [id number] Author: Akiko Craig) Kennedy Service: (none) Author Type: Nurse Practitioner Type: Progress Notes Filed: 12/02/2018 1:58 PM Note Text: Spoke to pharmacist last night And she calculated pt Creatinine Clearance With most up to date creatinine level Cr Cl is 38.3 ml/mm, used for pre and post op Medication dosages.Akiko Benavides, SMILEY.INSIDE SALES COORDINATOR PROGRESS Observed: 12/02/2018 Status: COMPLETED Source: [place] 1:51 PM [facility] REPOSITORY HNO ID: [id number] Author: Akiko Grossman (Trudy) Kennedy Service: (none) Author Type: Nurse Practitioner Type: Progress Notes Filed: 12/02/2018 1:57 PM Note Text: Spoke to Pt has been sitting with legs in a dependent position And has lower leg swelling, instructed when pt is sitting in chair Or lying down, operative leg is to be elevated Intermittent local ice with skin covered And monitor swelling if it doesn't gradually decrease, Or if it gets worse or any calf pain instructed to contact Office immediately. Akiko Benavides, PLUMBING SERVICE TECHNICIAN.INSIDE SALES COORDINATOR XR KNEE 2V AP/LAT Observed: 12/02/2018 Status: F Source: [facility] 1:16 PM [facility] OTHER [place] REPOSITORY * * *Final Report* * * DATE OF EXAM: Dec 02 2018 1:16PM MMX 5206 - XR KNEE 2V AP/LAT LT / PROCEDURE REASON: Post-operative / post-procedure assessment, asymptomatic * * * * Physician Interpretation * * * * 2 VIEWS OF THE LEFT KNEE. CLINICAL INDICATION: Post-operative / post-procedure assessment, asymptomatic COMPARISON: Left knee radiographs dated 03/29/2017. RESULT: Interval postsurgical changes of left lateral femoral condyle resurfacing. The hardware appears intact. No radiographic evidence of loosening or hardware failure. Again noted is ill-defined mixed, predominantly sclerotic region in the medullary portion of the distal femur compatible with infarcts; overall appears stable to slightly progressed in the interim. No radiographic evidence of acute fracture. Suprapatellar and peripatellar soft tissue swelling with air- fluid levels compatible with recent surgery. The joint spaces are well-preserved. - IMPRESSION: Interval postsurgical changes as described. Ill-defined mixed, predominantly sclerotic region in the medullary portion of the distal femur compatible with infarcts; overall appears stable to slightly progressed in the interim. Molding And Trim Installer: PSCB Transcribe Date/Time: Dec 02 2018 2:16P Dictated by : BRAYDON WHITESIDE MD This examination was interpreted and the report reviewed and electronically signed by: BRAYDON WHITESIDE MD on Dec 02 2018 2:21PM EST [id number] [id number] POST Observed: 12/02/2018 Status: COMPLETED Source: [place] 11:57 AM [facility] OTHER [place] REPOSITORY HNO ID: [id number] Author: Milagro Partida Service: Anesthesiology Author Type: Anesthesiologist Type: Anesthesia PostOp Filed: 12/02/2018 11:57 AM Note Text: POST ANESTHESIA EVALUATION NOTE SERVICE DATE: 12/02/2018 SERVICE TIME: 11:57 AM : 1975 Vitals: 12/02/18 0608 12/02/18 0958 12/02/18 1115 12/02/18 1129 Temp: 36.8 ?C (98.3 ?F) 36.6 ?C (97.9 ?F) 36.5 ?C (97.7 ?F) 36.5 ?C (97.7 ?F) 12/02/18 1045 12/02/18 1100 12/02/18 1115 12/02/18 1129 BP: 111/76 109/68 97/71 104/69 12/02/18 1045 12/02/18 1100 12/02/18 1115 12/02/18 1129 Pulse: 63 60 (!) 54 61 12/02/18 1045 12/02/18 1100 12/02/18 1115 12/02/18 1129 Resp: 10 14 16 18 12/02/18 1045 12/02/18 1100 12/02/18 1115 12/02/18 1129 SpO2: 96% 100% 99% 97% Validated Vital Signs: Yes POST ANES STATUS: No apparent anesthetic complications. The patient is appropriately hydrated with stable respiratory and cardiovascular status. Patient has safe and adequate airway control. The patient has appropriate pain relief and no significant post operative nausea or vomiting. The patient has achieved baseline mental status. Intra-Operative Events: No Significant Anesthesia Events Further assessment by Anesthesia Service: None Other Remarks: SIGNATURE: Milagro Partida MD PATIENT NAME: Ashok Sauceda DATE: December 02, 2018 TIME: 11:57 AM PAGER/CONTACT #: [phone] PT ED Observed: 12/02/2018 Status: COMPLETED Source: [place] 11:24 AM CLINIC OTHER CAMPUS REPOSITORY HNO ID: [id number] Author: Trey Vigil (Rn) JOSH Loza Service: (none) Author Type: Registered Nurse Type: Patient Education Filed: 12/02/2018 11:44 AM Note Text: Transport pt to floor without incident. Bedside report given to Nancy, all belongings with family including glasses. Family update given in waiting room. NURSING PROG Observed: 12/02/2018 Status: COMPLETED Source: [place] 11:06 AM [facility] REPOSITORY HNO ID: [id number] Author: Trey Vigil (Rn) JOSH Loza Service: (none) Author Type: Registered Nurse Type: Nursing Progress Note Filed: 12/02/2018 11:07 AM Note Text: Pt seen by Dr. Paz postop, evaluate for pain block not needed at this time. Pt states relief from dilaudid and demerol iv. BRIEF OP NOT Observed: 12/02/2018 Status: COMPLETED Source: [place] 9:53 AM [facility] REPOSITORY HNO ID: [id number] Author: Natali Fleming Service: Orthopaedic Surgery Author Type: Resident Type: Brief Op Note Filed: 12/02/2018 9:54 AM Note Text: BRIEF OP NOTE LOG ID: [id number] Surgery/Procedure Date: 12/02/2018 Incision/Procedure Start Time: 8:24 AM Incision Close/Procedure End Time: 9:53 AM Surgeon(s)/Proceduralist(s) and Part Time Receptionist(s): Surgeon(s) and Role: * Gallito Charles - Primary * Natali Fleming - Resident - Assisting Procedure(s): left diagnostic arthroscopy, lateral femoral condyle resurfacing Anesthesia: General Findings: as expected Estimated Blood Loss: 1 mls Specimens: None Complications: None Pre-Op/Pre-Procedure Diagnosis: left knee OA Post-Op/Post-Procedure Diagnosis: OA (osteoarthritis) of knee [M17.10] SIGNATURE: Natali Fleming MD PATIENT NAME: Ashok Sauceda DATE: December 02, 2018 TIME: 9:53 AM PAGER/CONTACT #: ANES PREOP Observed: 12/02/2018 Status: COMPLETED Source: [place] 6:42 AM [facility] REPOSITORY HNO ID: [id number] Author: Samir Nagy Service: Anesthesiology Author Type: Anesthesiologist Type: Anesthesia PreOp Filed: 12/02/2018 6:51 AM Note Text: ANESTHESIOLOGY DAY OF SURGERY NOTE SERVICE DATE: 12/02/2018 SERVICE TIME: 6:42 AM : 1975 Procedure(s) (LRB): ARTHROSCOPY KNEE ARTICULAR CARTILAGE SHAVING OR DEBRIDEMENT (Left) ARTHROPLASTY KNEE CONDYLE AND PLATEAU MEDIAL OR LATERAL (Left) Surgeon(s): Gallito Charles Estimated body mass index is 22.67 kg/m? as calculated from the following: Height as of 11/26/18: 160 cm (5' 3). Weight as of 11/26/18: 58.1 kg (128 lb). 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 Stage V Or End Stage Renal Disease(404.92) Corpus Luteum Cyst Or Hematoma Kidney Replaced By Transplant Neutropenia, Unspecified (Hcc) Anemia in Chronic Renal Disease End Stage Renal Disease (Hcc) Primary Hypertension Mixed Hyperlipidemia Loose Body in Knee Osteonecrosis (Hcc) Personal History of Dvt (Deep Vein Thrombosis) Renal Transplant Recipient Loose Body of Left Knee Oa (Osteoarthritis) of Knee 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 - Corpus luteum cyst or hematoma left ovary mass laparascopically biopsied 2002; benign corpus luteum - Cough jeanna induced - Cystitis x1 summer 2004 (presented with fever) - Fracture Childhood, L arm; states she 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 - Hyperlipidemia 02/22/2015 - Legionnaires' disease (HCC) 1996 during SLE flare, serum antigen +, but urine antigen negative; treated anyway - Malignant neoplasm of other specified sites of uterine adnexa 2001 open resection right ovary; suspicious lymphadenopathy and PET results led to lap node sampling end of 2001 with negative results; no chemo/XRT; no PET or CT scans for awhile - Nephritis and nephropathy, not specified as acute or chronic, with other specified pathological lesion in kidney, in diseases classified elsewhere 1996 nephrotic/nephritic, biopsy Class III treated wt steroids; biopsy 1997 Class Vb; ? Class IV (received CTX); 2000 and 2001 (? 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; quiescent - Type II or unspecified type diabetes mellitus without mention of complication, not stated as uncontrolled steroid induced; also had probably steroid psychosis with high dose - Unspecified hypertensive heart and kidney disease without heart failure and with chronic kidney disease stage V or end stage renal disease(404.92) - Unspecified hypothyroidism PAST SURGICAL HISTORY Procedure Laterality Date - PAST SURGICAL HISTORY OF right oophorectomy, left ovarian biopsy; multiple kidney biopsies; paraaortic and axillary lymph node sampling - PAST SURGICAL HISTORY OF 2002, 2002 lymph node biopsies - PAST SURGICAL HISTORY OF 2006 peritoneal dialysis cath placement - PAST SURGICAL HISTORY OF 2006 AVF, AV graft - PAST SURGICAL HISTORY OF 01/05/2012 Kidney transplant - PAST SURGICAL HISTORY OF Left 09/2018 knee scope and removal loose body - TRANSPLANT KIDNEY W/WO DOP 12/31/2006 FAMILY HISTORY Problem Relation Age of Onset - Hypertension Mother - Hypertension Father - Diabetes Father - Ischemic Heart Disease Father - Stroke Father Social History: Social History Substance Use Topics - Smoking status: Never Smoker - Smokeless tobacco: Never Used - Alcohol use No No current facility-administered medications on file prior to encounter. Current Outpatient Prescriptions on File Prior to Encounter: tacrolimus (PROGRAF) 1 mg capsule TAKE 2 MG IN THE AM, 3MG IN THE PM ON 12 HOUR SCHEDULE. ICD-10: Z94.0 furosemide (LASIX) 20 mg tablet TAKE 1 TABLET NEEDED FOR EDEMA carvedilol (COREG) 12.5 mg tablet Take 1 tablet by mouth twice daily. amLODIPine (NORVASC) 5 mg tablet TAKE 1 TABLET DAILY mycophenolate mofetil (CELLCEPT) 250 mg capsule TAKE 2 CAPSULES BY MOUTH TWICE DAILY. Z94.0 simvastatin (ZOCOR) 20 mg tablet TAKE 1 TABLET DAILY famotidine (PEPCID) 20 mg tablet TAKE 2 TABLETS TWICE A DAY levothyroxine (SYNTHROID) 50 mcg tablet TAKE 1 TABLET DAILY predniSONE (DELTASONE) 10 mg tablet TAKE DIRECTED 0.9 % SODIUM CHLORIDE (0.9% NACL) Access implanted vascular access device (IVAD) as needed for flush, blood draw or treatment.Flush IVAD with 10-20 mL NS every 4 weeks and PRN when IVAD not in use. heparin 100 unit/mL injection Access implanted vascular access device (IVAD) as needed for flush, blood draw or treatment. Before de-accessing port, flush with 10-20ml normal saline and follow with 5 mL heparin (100 units/mL) (if no heparin allergy). De-access port on treatment completion. allopurinol (ZYLOPRIM) 100 mg tablet Take 2 tablets by mouth once daily. Biotin 10,000 mcg cap Take 1 capsule by mouth once daily. Ferrous Sulfate (IRON) 325 mg (65 mg iron) tablet Take 1 tablet by mouth twice daily. DARBEPOETIN MARY KAY IN ALBUMN ODELL (ARANESP INJECTION) by INJECTION(UNSPECIFIED PARENTERAL ROUTES) route. Amoxicillin 500 mg tablet Take four (4) tablets one hour before dental procedure. 0.9% NaCl Access implanted vascular access device (IVAD) as needed for flush, blood draw or treatment.Flush IVAD with 10-20 mL NS every 4 weeks and PRN when IVAD not in use. heparin 100 unit/mL syrg Access implanted vascular access device (IVAD) as needed for flush, blood draw or treatment. Before de-accessing port, flush with 10-20ml normal saline and follow with 5 mL heparin (100 units/mL) (if no heparin allergy). De-access port on treatment completion. heparin 100 unit/mL syrg NURSING USE ONLY: USE FOR IVAD ACCESS FLUSH. AMBULATORY/OUTPATINET: PLEASE REORDER UPON HOSPITAL DISCHARGEMay access implanted vascular access device (IVAD) as needed for treatment. Before de-accessing port, flush with 10-20ml normal saline and follow with 5 mL heparin (100 units/mL) (if no heparin allergy). 0.9% NaCl NURSING USE ONLY: USED FOR IVAD ACCESS. AMBULATORY/OUTPATIENT: PLEASE REORDER UPON HOSPITAL DISCHARGE May access implanted vascular access device (IVAD) as needed for treatment.Flush IVAD with 10-20 mL NS every 4 weeks and PRN when IVAD not in use. Current Facility-Administered Medications: ceFAZolin iv piggyback 2 g in D5W (iso-osmotic) 100 mL (ANCEF) 2 g INTRAVENOUS Pre-Op Once Akiko Grossman (Trudy) Kennedy hydrocortisone sodium succinate (PF) 100 mg injection (Solu- CORTEF) 100 mg INTRAVENOUS ONCE Akiko Grossman (Editor Publications) Kennedy Allergies: ALLERGIES Allergen Reactions - Sulfa (Sulfonamide * Mental Status Change DOS EXAM: Adequate NPO status: Yes Anesthetic risks, benefits, alternatives, personnel and consent discussed: Yes Patient agrees to proceed: Yes Previous Anesthesia: No history of adverse event. Airway Assessment: MP 1; Neck ROM: Full ROM without neurologic symptoms; Airway Evaluation: No significant abnormalities Symptoms of Sleep Apnea: None Dentition: Teeth intact Additional Physical Exam: Lungs: Patient health status unchanged since recent history and physical. See history and physical for exam findings. Cardiac: Patient health status unchanged since recent history and physical. See history and physical for exam findings. Additional Pertinent Findings: N/A Blood Products: Not anticipated for this procedure. Anesthetic Plan: General, Standard ASA Monitors Pain Management Plan: Parenteral or Oral ASA Class: 3 Other Medical Problems: None Chronic Beta Alix medication administered within 24 hours: N/A I have interviewed and examined the patient. I have reviewed the medical record and/or the pre-anesthesia evaluation, pertinent labs, and test results. Significant changes in the patient's condition since the History and Physical, not otherwise documented in primary service progress notes: No This contains updated information obtained within 48 hours of Surgery/Procedure. SIGNATURE: Samir Nagy MD PATIENT NAME: Ashok Sauceda DATE: December 02, 2018 TIME: 6:42 AM CSN: [id number] NURSING PROG Observed: 12/02/2018 Status: COMPLETED Source: [place] 6:09 AM [facility] OTHER CAMPUS REPOSITORY HNO ID: [id number] Author: Josefina BarksdaleRn) JOSH Prakash Service: (none) Author Type: Registered Nurse Type: Nursing Progress Note Filed: 12/02/2018 6:10 AM Note Text: PRE OP LEARNING ASSESSMENT PROCEDURE/SURGERY: SURGERY: READINESS TO LEARN COGNITIVE ABILITY: Alert and oriented MOTIVATION TO LEARN: Eager FAMILY SUPPORT: None - Unavailable/disinterested PATIENT LEARNS BEST BY: Individual Instruction FACTORS AFFECTING LEARNING: None PHYSICAL LIMITATIONS AFFECTING LEARNING: None Electronically Signed By: Josefina Prakash RN In Department: [facility] SURGERY Nursing Progress Note Patient Name: Ashok Sauceda Patient Location: MM Surgery/MM Surgery Daily Note: This note was completed by: Josefina Prakash RN NURSING PROG Observed: 12/01/2018 Status: COMPLETED Source: [place] 9:44 AM [facility] OTHER CAMPUS REPOSITORY HNO ID: [id number] Author: Abby Luis) JOSH Barahona Service: (none) Author Type: Registered Nurse Type: Nursing Progress Note Filed: 12/01/2018 9:50 AM Note Text: PACC Nurse Progress Note History AND Physical: PACC Visit Date: 11/26/18 Original HANDP Date: N/A ED visit Date: N/A Outside HANDP Scanned Date: N/A Labs Within Last 6 Months: CBC: Date 11/24/18 Hgb 10.5,Hct 31.6 followed by Hem/Onc BMP/CMP: Date 11/24/18 creatinine 1.72,GFR 32 Imaging Within Last 12 Months: MRI knee 10/19/18 Cardiac Testing: EKG in last 12 Months: Yes: Date: 08/30/18, Comment: SB rate 59 Last Menstrual Period: LMP Date: unknown Kim/menopausal Yes, S/P Hysterectomy: No BMI Percentile (PEDS): N/A Risk Assessment: N/A Anesthesia Review: N/A Narrative: N/A Pre-op Considerations: Port right upper chest Diabetic CKD V S/P renal transplant x 2 Chart Check: COMPLETED Abby Barahona RN December 01, 2018 9:44 AM HISTORY PHYSICAL Observed: 11/26/2018 Status: COMPLETED Source: [place] 1:19 PM [facility] REPOSITORY HNO ID: [id number] Author: Ketty Carias (Pa) Service: (none) Author Type: Physician Part Time Receptionist Type: HANDP Filed: 11/26/2018 1:56 PM Note Text: HISTORY AND PHYSICAL EXAMINATION SERVICE DATE: 11/26/2018 SERVICE TIME: 1:19 PM PRIMARY CARE PHYSICIAN: Enrique Cardoso MD REASON FOR VISIT: Ashok Sauceda is a 43 year old female who is scheduled for Left knee arthroscopy at the request of Dr. Gallito Charles for consultation. My final recommendation will be communicated back to the requesting physician by way of shared medical record or letter. 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 Stage V Or End Stage Renal Disease(404.92) Corpus Luteum Cyst Or Hematoma Kidney Replaced By Transplant Neutropenia, Unspecified (Hcc) Anemia in Chronic Renal Disease End Stage Renal Disease (Hcc) Primary Hypertension Mixed Hyperlipidemia Loose Body in Knee Osteonecrosis (Hcc) Personal History of Dvt (Deep Vein Thrombosis) Renal Transplant Recipient Loose Body of Left Knee Oa (Osteoarthritis) of Knee Subjective CHIEF COMPLAINT: left knee pain HPI: 43 yo female with chronic left knee pain and locking d/t necrosis of the bone, She had a loose body removed in 09/2018 and there is continued locking which causes pain. Prior treatments have been brace. No recent PT and no pain medications. 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 - Corpus luteum cyst or hematoma left ovary mass laparascopically biopsied 2002; benign corpus luteum - Cough jeanna induced - Cystitis x1 summer 2004 (presented with fever) - Fracture Childhood, L arm; states she 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 - Hyperlipidemia 02/22/2015 - Legionnaires' disease (HCC) 1996 during SLE flare, serum antigen +, but urine antigen negative; treated anyway - Malignant neoplasm of other specified sites of uterine adnexa 2001 open resection right ovary; suspicious lymphadenopathy and PET results led to lap node sampling end 2001 with negative results; no chemo/XRT; no PET or CT scans for awhile - Nephritis and nephropathy, not specified as acute or chronic, with other specified pathological lesion in kidney, in diseases classified elsewhere 1996 nephrotic/nephritic, biopsy Class III treated wtih steroids; biopsy 1997 Class Vb; ? Class IV (received CTX); 2000 and 2001 (? 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; quiescent - Type II or unspecified type diabetes mellitus without mention of complication, not stated as uncontrolled steroid induced; also had probably steroid psychosis with high dose - Unspecified hypertensive heart and kidney disease without heart failure and with chronic kidney disease stage V or end stage renal disease(404.92) - Unspecified hypothyroidism PAST SURGICAL HISTORY Procedure Laterality Date - PAST SURGICAL HISTORY OF right oophorectomy, left ovarian biopsy; multiple kidney biopsies; paraaortic and axillary lymph node sampling - PAST SURGICAL HISTORY OF 2002, 2002 lymph node biopsies - PAST SURGICAL HISTORY OF 2006 peritoneal dialysis cath placement - PAST SURGICAL HISTORY OF 2006 AVF, AV graft - PAST SURGICAL HISTORY OF 01/05/2012 Kidney transplant - PAST SURGICAL HISTORY OF Left 09/2018 knee scope and removal loose body - TRANSPLANT KIDNEY W/WO DOP 12/31/2006 FAMILY HISTORY Problem Relation Age of Onset - Hypertension Mother - Hypertension Father - Diabetes Father - Ischemic Heart Disease Father - Stroke Father SOCIAL HISTORY: Social History Marital status: Spouse name: Kumar Years of education: 14 Number of children: 1 Occupational History 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 ICD-10: Z94.0 Yes furosemide (LASIX) 20 mg tablet TAKE 1 TABLET NEEDED FOR EDEMA Yes carvedilol (COREG) 12.5 mg tablet Take 1 tablet by mouth twice daily. Yes amLODIPine (NORVASC) 5 mg tablet TAKE 1 TABLET DAILY Yes mycophenolate mofetil (CELLCEPT) 250 mg capsule TAKE 2 CAPSULES BY MOUTH TWICE DAILY. Z94.0 Yes simvastatin (ZOCOR) 20 mg tablet TAKE 1 TABLET DAILY Yes famotidine (PEPCID) 20 mg tablet TAKE 2 TABLETS TWICE A DAY Yes levothyroxine (SYNTHROID) 50 mcg tablet TAKE 1 TABLET DAILY Yes predniSONE (DELTASONE) 10 mg tablet TAKE DIRECTED Yes DARBEPOETIN MARY KAY IN ALBUMN ODELL (ARANESP INJECTION) by INJECTION(UNSPECIFIED PARENTERAL ROUTES) route. Yes 0.9 % SODIUM CHLORIDE (0.9% NACL) Access implanted vascular access device (IVAD) as needed for flush, blood draw or treatment. Flush IVAD with 10-20 mL NS every 4 weeks and PRN when IVAD not in use. Yes heparin 100 unit/mL injection Access implanted vascular access device (IVAD) as needed for flush, blood draw or treatment. Before de-accessing port, flush with 10-20ml normal saline and follow with 5 mL heparin (100 units/mL) (if no heparin allergy). De-access port on treatment completion. Yes Amoxicillin 500 mg tablet Take four (4) tablets one hour before dental procedure. Yes allopurinol (ZYLOPRIM) 100 mg tablet Take 2 tablets by mouth once daily. Yes 0.9% NaCl Access implanted vascular access device (IVAD) as needed for flush, blood draw or treatment. Flush IVAD with 10-20 mL NS every 4 weeks and PRN when IVAD not in use. Yes heparin 100 unit/mL syrg Access implanted vascular access device (IVAD) as needed for flush, blood draw or treatment. Before de-accessing port, flush with 10-20ml normal saline and follow with 5 mL heparin (100 units/mL) (if no heparin allergy). De-access port on treatment completion. Yes Biotin 10,000 mcg cap Take 1 capsule by mouth once daily. Yes heparin 100 unit/mL syrg NURSING USE ONLY: USE FOR IVAD ACCESS FLUSH. AMBULATORY/OUTPATINET: PLEASE REORDER UPON HOSPITAL DISCHARGE May access implanted vascular access device (IVAD) as needed for treatment. Before de-accessing port, flush with 10-20ml normal saline and follow with 5 mL heparin (100 units/mL) (if no heparin allergy). Yes 0.9% NaCl NURSING USE ONLY: USED FOR IVAD ACCESS. AMBULATORY/OUTPATIENT: PLEASE REORDER UPON HOSPITAL DISCHARGE May access implanted vascular access device (IVAD) as needed for treatment. Flush IVAD with 10-20 mL NS every 4 weeks and PRN when IVAD not in use. Yes Ferrous Sulfate (IRON) 325 mg (65 mg iron) tablet Take 1 tablet by mouth twice daily. Yes No medication comments found. ALLERGIES Allergen Reactions - Sulfa (Sulfonamide * Mental Status Change REVIEW OF SYSTEMS: PAIN ASSESSMENT: General: No weight loss, malaise or fevers. 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 No neurological symptoms or problems. Respiratory: No history of current cough or dyspnea, or pneumonia in the past 6 weeks. No history of respiratory/pulmonary symptoms or problems. Cardiovascular: Positive for: HLD, Hypertension, 1- yrs ago clot in carotid and Vascular med consult prior to surgery in 09/2018, Negative for Recent NH, Arrhythmia, Chest Pain, CHF, Valvular Heart Disease 09/02 Vascular Consult: Recommendations: 1. 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 -Recommend pharmacomechanical VTE prophylaxis perioperatively including: _Heparin 5000 units BID while admitted _Ted hose/IPCs _Early ambulation, adequate hydration GI: Positive for GERD, Pepcid, Negative for Liver disease, Pancreatitis, IBS : Negative for dysuria, frequency and incontinence, Positive for kidney transplant 2006 AND 2011 on transplant meds followed by Dr. Nguyen- recent labs stable PROCUREMENT SPECIALIST: Negative for abnormal vaginal bleeding, abnormal vaginal discharge. : Denies, No LMP recorded. Patient is perimenopausal. Endocrine: Hypothyroidism, Daily Prednosine for anti-rejection Hematology: Anemia associated with chronic kidney disease Aranesp and stable Oncology: No history of CA metastasis, chemo within 30 days, or radiotherapy within 90 days. Has not lost 10% of body wt in 6 months. No history of oncological symptoms or problems. Psych: No history of psychiatric symptoms or problems. Musculoskeletal: See HPI Skin: Negative for lesions, rash and itching. Objective PHYSICAL EXAM: VITALS: BP 108/80 Pulse 80 Temp (Src) 98.5 (Temporal Artery) Ht 5' 3 (1.60m) Wt 128 lb (58.1kg) SpO2 99% BMI 22.68 kg/(m2). General: Alert and oriented, No acute distress, Healthy appearance Skin: Normal color, no rash, no lesions. HEENT: EOM, pupils equal, round and reactive. Cardiovascular: Normal S1 AND S2, no rubs, murmurs or gallops. No JVD. Pulse regular. Lungs: Normal breath sounds, no wheezes or crackles. Abdomen: Soft, non-tender, no rigidity. Extremities: No deformity, no edema or tenderness, no joint swelling or clubbing. Neurological: Normal cognition and motor skills. Pulses: Carotid and radial pulses normal +2. Diagnostic tests reviewed for today's visit: Lab Value Units Date High Low HB 10.4 g/dL 09/22/2018 15.5 11.5 HCT 33.1 % 09/22/2018 46.0 36.0 WBC 2.74 k/uL 09/22/2018 11.00 3.70 PLT 182 k/uL 09/22/2018 400 150 NA 142 mmol/L 11/24/2018 144 136 K 4.2 mmol/L 11/24/2018 5.1 3.7 GLUC 89 mg/dL 11/24/2018 99 74 BUN 36 mg/dL 11/24/2018 21 7 CREAT 1.72 mg/dL 11/24/2018 0.96 0.58 PTSEC No results within date range. INR No results within date range. APTT No results within date range. ALT 9 U/L 09/22/2018 38 7 AST 13 U/L 09/22/2018 35 13 TBILI 0.3 mg/dL 09/22/2018 1.3 0.2 TSH No results within date range. Lab Value Units Date High Low HCGQT No results within date range. UHCG No results within date range. HCG, BODY* No results within date range. Lab Value Units Date High Low ABORHD No results within date range. ABSCREEN No results within date range. Hemoglobin A1C (%) Date Value 04/13/2012 5.8 Most recent labs recent EKG Assessment ASSESSMENT ESRD s/p kidney transplant (2006 AND 2011) on transplant meds and stable Lupus AOCD-HANDH ()-Aranesp prn Right chest port H/o carotid clot (2007)-Per Vascular Consult 09/07/18: -Heparin 5000 units BID while admitted HTN-RX HLD-RX GERD-RX Daily Prednisone s/p transplant ? METS: Participate in moderate recreational activities, such as golf, bowling, dancing, doubles tennis, or throwing a baseball or football (6.00 METs) ASA Class: 3 ANESTHESIA FINDINGS: Intubation History: No history of difficult intubation Significant Anesthesia Considerations: None Airway Exam: General: Normal appearance Mallampati Score is CLASS I ULBT: Class I - Lower incisors can bite the upper lip above the clif line Neck: Normal appearance and function, Distance from hyoid to mentum during neck extension is at least 3 finger breaths Mouth: Normal tongue size Dentition: Intact Airway History: No abnormal airway history STOP BANG Score: Criteria: Hypertension Score = 1 PLAN This patient is optimally prepared for surgery. CONSULTS: Patient does not require consults for optimization at this time. The Following Tests/Procedures Have Been Initiated: Labs not indicated per PACC protocol, EKG not indicated per PACC protocol Planned Anesthetic: General Instructions Given to Patient: Patient given verbal and written preop instructions and voices comprehension and compliance. SIGNATURE: Ketty Carias PA-C PATIENT NAME: Ashok Sauceda DATE: November 26, 2018 TIME: 1:19 PM PAGER/CONTACT #: DULCE HACKETT GR + CBC Collected: 11/24/2018 Status: F Source: [place] 10:10 AM [facility] REPOSITORY TYPE CODE TESTS RESULT OUT OF REFERENCE UNITS RANGE LAB WWBC 3.70-11.00 k/uL [place] WBC 3.78 LAB WRBC 3.90-5.20 m/uL Low [place] RBC 3.55 LAB WHGB 11.5-15.5 g/dL Low [place] Hemoglobin 10.5 LAB WHCT 36.0-46.0 % Low [place] Hematocrit 31.6 LAB WMCV 80.0-100.0 fL [place] MCV 89.0 LAB WMCH 26.0-34.0 pg [place] MCH 29.6 LAB WMCHC 30.5-36.0 g/dL [place] MCHC 33.2 LAB WRDW 11.5-15.0 % [place] RDW 12.5 LAB WPLT 150-400 k/uL [place] Platelet Cnt 188 LAB WMPV 9.0-12.7 fL [place] MPV 9.4 Result Comment: Test performed at: [facility], [address] [place] [address]. LAB ABGRAN 1.45-7.50 k/uL Absol Gran 1.82 Count TACROLIMUS / FK506 Collected: 11/24/2018 Status: F Source: [place] 10:10 AM [facility] REPOSITORY TYPE CODE TESTS RESULT OUT OF REFERENCE UNITS RANGE LAB FK506 5.0-20.0 ng/mL Tacrolimus / 6.2 FK506 Result Comment: These reference ranges are provided as a general recommendation. Individualized target levels for a given patient will depend on many factors (including the type of organ transplant, ti me since transplantation, concurrent medications, and other clinical factors), and should be assessed by those health care providers experienced in the management of immunosuppression. Reference ranges and high/low indicator flags are provided as general guidelines only. The treating physician must determine appropriate target levels/dosing based on the specific clinical situation. Test performed by chemiluminescent immunoassay using famPlus. Performed By: #### [id number] #### [facility] [address] [place], [place] [address] RENAL FUNCTION PANEL Collected: 11/24/2018 Status: F Source: [place] 10:09 AM [facility] REPOSITORY TYPE CODE TESTS RESULT OUT OF REFERENCE UNITS RANGE LAB ALB 3.9-4.9 g/dL Albumin 4.9 LAB CA 8.5-10.2 mg/dL Calcium, Total 10.1 LAB PHOS 2.7-4.8 mg/dL Phosphorus 3.5 LAB GLU 74-99 mg/dL Glucose 89 Result Comment: The [place] Diabetes Association (ADA) provides guidance for cutoff values for fasting glucose and random glucose. The ADA defines fasting as no caloric intake for at least 8 hours. Fas ting plasma glucose results between 100 to 125 mg/dL indicate increased risk for diabetes (prediabetes). Fasting plasma glucose results greater than or equal to 126 mg/dL meet the criteria for diagnosis of diabetes. In the absence of unequivocal hyperglycemia, results should be confirmed by repeat testing. In a patient with classic symptoms of hyperglycemia or hyperglycemic crisis, random plasma glucose results greater than or equal to 200 mg/dL meet the criteria for diagnosis of diabetes. Reference: Standards of Medical Care in Diabetes 2016, [place] Diabetes Association. Diabetes Care. 2016.39(Suppl 1). LAB BUN 7-21 mg/dL BUN High 36 LAB CRET 0.58-0.96 mg/dL Creatinine High 1.72 LAB NA 136-144 mmol/L Sodium 142 LAB K 3.7-5.1 mmol/L Potassium 4.2 LAB CL 97-105 mmol/L Chloride High 106 LAB CO2 22-30 mmol/L Low CO2 19 LAB AGAP 9-18 mmol/L Anion Gap 17 LAB GFRAA eGFR- Amer. 39 LAB GFRNAA . eGFR-All Other Races 32 Result Comment: eGFR (Estimated GFR) Units of measure: mL/min/1.73 meters squared eGFR is derived from the reexpressed MDRD Study equation using the following parameters: serum creatinine, age, gender and race. The creatinine assay has been calibrated to be traceable to IDMS. An eGFR <60 mL/min/1.73m2 for >3 months is consistent with chronic kidney disease. Refer to KDOQI guidelines for clinical interpretation. In patients with unstable renal function, e.g. those with acute kidney injury, the eGFR may not accurately reflect actual GFR. Performed By: #### RFP, PTHI, VITD #### [facility] [address] [place], [place] [address] PTH, INTACT Collected: 11/24/2018 Status: F Source: [place] 10:09 AM [facility] REPOSITORY TYPE CODE TESTS RESULT OUT OF REFERENCE UNITS RANGE LAB PTH 15-65 pg/mL High PTH, Intact 110 Performed By: #### RFP, PTHI, VITD #### [facility] [address] [place], [place] [address] VITAMIN D 25 HYDROXY Collected: 11/24/2018 Status: F Source: [place] 10:09 AM [facility] REPOSITORY TYPE CODE TESTS RESULT OUT OF REFERENCE UNITS RANGE LAB VITD 31.0-80.0 ng/mL Vitamin D 25 36.9 Hydroxy Result Comment: Classification of 25 [place] Vitamin D status: Insufficiency/Moderate Deficiency: < or = 30 ng/mL Sufficiency/Optimal Levels: 31 to 80 ng/mL Toxicity: > 100 ng/mL Test performed by chemiluminescent immunoassay. Performed By: #### RFP, PTHI, VITD #### [facility] [address] [place], [place] [address] HOSP Observed: 11/22/2018 Status: COMPLETED Source: [place] 12:00 AM [facility] REPOSITORY Patient:Ashok Sauceda MRN: <[id number]> Height:5' 3(1.6 m) Weight:128 lb (58.06 kg) Outpatient Medications as of 12/02/18: tacrolimus (PROGRAF) 1 mg capsule furosemide (LASIX) 20 mg tablet carvedilol (COREG) 12.5 mg tablet amLODIPine (NORVASC) 5 mg tablet mycophenolate mofetil (CELLCEPT) 250 mg capsule simvastatin (ZOCOR) 20 mg tablet famotidine (PEPCID) 20 mg tablet levothyroxine (SYNTHROID) 50 mcg tablet predniSONE (DELTASONE) 10 mg tablet DARBEPOETIN MARY KAY IN ALBUMN ODELL (ARANESP INJECTION) 0.9 % SODIUM CHLORIDE (0.9% NACL) heparin 100 unit/mL injection Amoxicillin 500 mg tablet allopurinol (ZYLOPRIM) 100 mg tablet 0.9% NaCl heparin 100 unit/mL syrg Biotin 10,000 mcg cap heparin 100 unit/mL syrg 0.9% NaCl Ferrous Sulfate (IRON) 325 mg (65 mg iron) tablet Admission/Clinic Administered Medications as of 12/02/18: ceFAZolin iv piggyback 2 g in D5W (iso-osmotic) 100 mL (ANCEF) Problem List: Systemic lupus erythematosus [M32.9] Type II or unspecified type diabetes mellitus without mention of complication, not stated as uncontrolled [E11.9] Malignant neoplasm of other specified sites of uterine adnexa [C57.4] Acquired hemolytic anemia, unspecified (HCC) [D59.9] Thrombocytopenia, unspecified (HCC) [D69.6] Unspecified hypertensive heart and kidney disease without heart failure and with chronic kidney disease stage V or end stage renal disease(404.92) [I13.11] Corpus luteum cyst or hematoma [N83.10] Kidney replaced by transplant [Z94.0] Neutropenia, unspecified (HCC) [D70.9] Anemia in chronic renal disease [N18.9, D63.1] End stage renal disease (HCC) [N18.6] Primary hypertension [I10] Mixed hyperlipidemia [E78.2] Loose body in knee [M23.40] Osteonecrosis (HCC) [M87.9] Personal history of DVT (deep vein thrombosis) [Z86.718] Renal transplant recipient [Z94.0] Loose body of left knee [M23.42] OA (osteoarthritis) of knee [M17.10] Allergies: Sulfa (Sulfonamide Antibiotics) Date Verified: 12/02/18 Lab Values Lab Value Units Date High Low POTA* 4.2 mmol/L 11/24/2018 5.1 3.7 Progress Notes (ORTHOPAEDIC AND RHEUMATOLOGIC INST): [facility] 11/17/2018 11:39 AM Signed VM message left by ashok at 10:28am on 11/17/2018 stating message is for Akiko Grossman - she is calling to schedule surgery for November. # [phone] Akiko Benavides APRN.TRUDY 11/19/2018 3:14 PM Signed Spoke to pt Need to coordinate in hospital setting In process, pt aware will update As soon as possible Akiko Benavides APRN.INSIDE SALES COORDINATOR PROGRESS Observed: 11/01/2018 Status: COMPLETED Source: [place] 11:21 AM [facility] REPOSITORY HNO ID: [id number] Author: Gallito Charles Service: (none) Author Type: Physician Type: Progress Notes Filed: 11/01/2018 11:25 AM Note Text: Patient seen now 6 weeks following arthroscopy loose body removal from her left knee Certainly the pain is much diminished She has no pain at rest She still has significant mechanical symptomatology Repeat MRI does not show any obvious floating loose bodies so I think that the structural defects caused by her osteochondral lesions are likely what is giving her her symptomatology In view of her ongoing symptoms I think that we need to do something to fill the defects We did discuss this at length and considered a number of possibilities We discussed the possibility of large osteochondral graft I have some concerns about the quality of bony healing especially as it relates to her avascular necrosis and we did discuss the possibility of failure of the allograft procedure We also discussed total knee arthroplasty but at her age she would like to try something different Finally we spoke about some form of partial resurfacing implant to fill the defect We did disclose my conflicts of interest related to the implant to be used and she was aware of this We also spoke of the fact that by using in the lateral compartment and if he uses only on the femoral condyle that this would be considered off label according to the FDA She was well aware of this and consented to this use Because of the fact she has no rest pain I'm a little unclear about what to do with the softened cartilage on her tibial plateau I suspect the changes we saw were related to the mechanical abrasion she is having from her large defect and loose bodies I'm hoping that by filling the defect that this will resolve her symptomatology and we don't need to do anything on her tibial plateau Certainly she may continue to have symptoms and pain related to this after the surgical procedure but I'm trying to minimize the amount of surgery necessary to try and resolve her symptomatology She is aware that all this man.and requiring a total knee arthroplasty at some point in the future here and potentially within the next year Arrangements were made today to consider an arthroscopy and resurfacing of her lateral femoral condyle possibly of the tibial plateau in the near future CNOV Observed: 11/01/2018 Status: COMPLETED Source: [place] 10:45 AM [facility] REPOSITORY Office Visit (SPRTMN) ASHOK SAUCEDA ([id number]) 1975 F KDR Date Time Provider Department 11/01/18 10:45 AM GALLITO CHARLES During your visit today, we recorded the following information about you: Gallito Charles MD 11/01/2018 11:25 AM Signed Patient seen now 6 weeks following arthroscopy loose body removal from her left knee Certainly the pain is much diminished She has no pain at rest She still has significant mechanical symptomatology Repeat MRI does not show any obvious floating loose bodies so I think that the structural defects caused by her osteochondral lesions are likely what is giving her her symptomatology In view of her ongoing symptoms I think that we need to do something to fill the defects We did discuss this at length and considered a number of possibilities We discussed the possibility of large osteochondral graft I have some concerns about the quality of bony healing especially as it relates to her avascular necrosis and we did discuss the possibility of failure of the allograft procedure We also discussed total knee arthroplasty but at her age she would like to try something different Finally we spoke about some form of partial resurfacing implant to fill the defect We did disclose my conflicts of interest related to the implant to be used and she was aware of this We also spoke of the fact that by using in the lateral compartment and if he uses only on the femoral condyle that this would be considered off label according to the FDA She was well aware of this and consented to this use Because of the fact she has no rest pain I'm a little unclear about what to do with the softened cartilage on her tibial plateau I suspect the changes we saw were related to the mechanical abrasion she is having from her large defect and loose bodies I'm hoping that by filling the defect that this will resolve her symptomatology and we don't need to do anything on her tibial plateau Certainly she may continue to have symptoms and pain related to this after the surgical procedure but I'm trying to minimize the amount of surgery necessary to try and resolve her symptomatology She is aware that all this man.and requiring a total knee arthroplasty at some point in the future here and potentially within the next year Arrangements were made today to consider an arthroscopy and resurfacing of her lateral femoral condyle possibly of the tibial plateau in the near future Referring Provider: GALLITO CHARLES [[id number]] Allergies As of Date: 11/01/2018 Noted Allergy Reaction SULFA (SULFONAMIDE ANTIBIOTICS) 10/16/2005 1 - Mental Status Change Date Reviewed: 11/01/2018 Reviewed by: Farrah Warren Ma - Fully Assessed Reason for Visit: MRI Report [1240] Primary Visit Diagnosis:Arthritis of knee [M17.10] Other Visit Diagnosis:Loose body of left knee [M23.42] Prescriptions as of 11/01/2018 Sig: SODIUM CHLORIDE 0.9% FLUSH Access implanted vascular acc* SODIUM CHLORIDE 0.9% FLUSH NURSING USE ONLY: USED FOR * SODIUM CHLORIDE 0.9% FLUSH Access implanted vascular acc* ALLOPURINOL 100 MG TABLET Take 2 tablets by mouth once * AMLODIPINE 5 MG TABLET TAKE 1 TABLET DAILY AMOXICILLIN 500 MG TABLET Take four (4) tablets one ricky* BIOTIN 10,000 MCG CAPSULE Take 1 capsule by mouth once * CARVEDILOL 12.5 MG TABLET Take 1 tablet by mouth twice * ARANESP INJECTION by INJECTION(UNSPECIFIED PARE* FAMOTIDINE 20 MG TABLET TAKE 2 TABLETS TWICE A DAY FERROUS SULFATE 325 MG (65 MG* Take 1 tablet by mouth twice * FUROSEMIDE 20 MG TABLET TAKE 1 TABLET NEEDED FOR E* HEPARIN, PORCINE (PF) 100 UNI* Access implanted vascular acc* HEPARIN LOCK FLUSH (PORCINE) * NURSING USE ONLY: USE FOR I* HEPARIN LOCK FLUSH (PORCINE) * Access implanted vascular acc* LEVOTHYROXINE 50 MCG TABLET TAKE 1 TABLET DAILY MYCOPHENOLATE MOFETIL 250 MG * TAKE 2 CAPSULES BY MOUTH TWIC* PREDNISONE 10 MG TABLET TAKE DIRECTED SIMVASTATIN 20 MG TABLET TAKE 1 TABLET DAILY TACROLIMUS 1 MG CAPSULE TAKE 2 MG IN THE AM, 3MG IN T* Problem List As Of Date 11/01/2018 Noted Resolved End stage renal disease [N18.6] INVALID FOR*09/28/2013 Nephritis and nephropathy, not specified as acu*INVALID FOR*09/01/2018 Systemic lupus erythematosus [M32.9] More... DIABETES MELLITUS TYPE II-UNCOMPL [E11.9] More... Legionnaires' disease [A48.1] 09/28/2013 More... MALIG SATISH ADNEXA NEC [C57.4] More... Acquired hemolytic anemia, unspecified [D59.9] More... Thrombocytopenia, unspecified [D69.6] More... 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 Cough [R05] 09/28/2013 More... Cystitis [595] 09/01/2018 More... Kidney replaced by transplant [Z94.0] INVALID FOR* More... Unspecified disease of white blood cells [D72.9]INVALID FOR*01/13/2011 Anemia, unspecified [D64.9] INVALID FOR*11/21/2011 Neutropenia, unspecified [D70.9] INVALID FOR* Need for prophylactic immunotherapy [Z29.8] INVALID FOR*09/28/2013 Anemia in chronic renal disease [N18.9, D63.1] INVALID FOR* More... Urinary tract infection, E. coli [N39.0, B96.20]INVALID FOR*09/28/2013 UTI (urinary tract infection) [N39.0] INVALID FOR*09/28/2013 Post-dural puncture headache [G97.1] INVALID FOR*09/28/2013 End stage renal disease (HCC) [N18.6] INVALID FOR* SUMMARY [V999.95] INVALID FOR*09/01/2018 More... Primary hypertension [I10] INVALID FOR* More... Mixed hyperlipidemia [E78.2] INVALID FOR* More... UTI (lower urinary tract infection) [N39.0] INVALID FOR*02/28/2015 More... Flu-like symptoms [R68.89] INVALID FOR*02/28/2015 More... DVT prophylaxis [OPP6022] INVALID FOR*02/28/2015 More... Loose body in knee [M23.40] INVALID FOR* More... Osteonecrosis (HCC) [M87.9] INVALID FOR* More... Personal history of DVT (deep vein thrombosis) *INVALID FOR* Renal transplant recipient [Z94.0] INVALID FOR* Loose body of left knee [M23.42] INVALID FOR* Encounter Status:Closed by GALLITO CHARLES MD on 11/01/18 PROGRESS Observed: 10/19/2018 Status: COMPLETED Source: [place] 11:20 AM [facility] [place] REPOSITORY HNO ID: [id number] Author: Radha Kruse (Rt) Service: (none) Author Type: Pediatric Physician Assistant Type: Progress Notes Filed: 10/19/2018 11:20 AM Note Text: Radiology Service Progress Note PATIENT NAME: Ashok Sauceda DATE OF SERVICE: October 19, 2018 TIME: 11:20 AM PATIENT IDENTITY VERIFICATION COMPLETED USING TWO (2) METHODS: Patient confirmed name verbally and Date of . PATIENT GENDER DATA: Female. status: : No status: NO. PATIENT RELEVANT IMPLANT DATA REVIEWED: Yes RADIOLOGY DEPARTMENT: MR; Exam(s) Completed: Lower MSK: Knee, left PERIPHERAL IV DATA: Not applicable SIGNED BY: RT Uriah October 19, 2018 11:20 AM MRI KNEE WO IVCON Observed: 10/19/2018 Status: F Source: [facility] 11:05 AM [facility] REPOSITORY * * *Final Report* * * DATE OF EXAM: Oct 19 2018 11:05AM [facility] 0212 - MRI KNEE WO IVCON LT / PROCEDURE REASON: Arthritis of knee * * * * Physician Interpretation * * * * EXAMINATION: MRI LEFT KNEE WITHOUT CONTRAST CLINICAL HISTORY: 42-year-old female with history of chronic corticosteroid use with chronic left knee pain. TECHNIQUE: Routine non-contrast MRI of the knee MQ: [id number]_[id number] COMPARISON: MRI left knee 04/13/2018 RESULT: MENISCI: Medial Meniscus: Degenerative changes without tear Lateral Meniscus: Postsurgical changes without a definite tear LIGAMENTS: ACL: Intact with mucoid degeneration PCL: Intact MCL: Intact LCL Complex: Intact CARTILAGE: Medial Femoral Condyle: Normal Medial Tibial Plateau: Small area(s) of low grade (<50% thickness) partial thickness cartilage loss/fissuring Lateral Femoral Condyle: Diffuse full thickness cartilage loss/fissuring including 8 mm osteochondral defect in the central weightbearing portion within which there is an approximately 5 x 1 mm body, significantly smaller than the body seen on the preoperative MRI. Additional osteochondral defect involving the posterior aspect of the lateral femoral condyle. Redemonstrated is 1.4 cm suspected displaced osteochondral fragment anterior to the anterior horn of the lateral meniscus (series 4 image 17), unchanged from previous examinations. Lateral Tibial Plateau: Small area(s) of cartilage signal abnormality Patella: Normal Trochlea: Normal TENDONS: The distal quadriceps and patellar tendons are intact. The popliteus tendon is intact. BONES AND MARROW: Redemonstrated are subchondral and medullary bone infarcts involving the femoral condyles, lateral trochlea and supracondylar femur, not significantly changed from 04/04/2019. MUSCLES: Muscle bulk and signal intensity are normal. JOINT FLUID AND SYNOVIUM: Small joint effusion. No synovitis. Small Arango's cyst. OTHER: Suspected displaced osteochondral fragment located anterior to the anterior horn of the lateral meniscus, as described above. IMPRESSION: REMOVAL OF A JOINT BODY IN THE LATERAL COMPARTMENT SINCE THE PRIOR STUDY. THERE IS A SMALL RESIDUAL FRAGMENT NEAR THE DEFECT IN THE LATERAL FEMORAL CONDYLE WELL RESIDUAL JOINT BODY ANTERIOR TO THE ANTERIOR HORN OF THE LATERAL MENISCUS. UNCHANGED APPEARANCE OF INTRAMEDULLARY BONE INFARCTS INVOLVING THE DISTAL FEMUR WITH EXTENSION TO THE SUBCHONDRAL PLATE OF THE LATERAL TROCHLEA AND FEMORAL CONDYLES. Molding And Trim Installer: [email or web address] Transcribe Date/Time: Oct 19 2018 11:40A Dictated by : PAUL SCHMITT MD This examination was interpreted and the report reviewed and electronically signed by: MELISSA CISSE MD on Oct 19 2018 3:26PM EST [id number] PROGRESS Observed: 10/18/2018 Status: COMPLETED Source: [place] 11:34 AM [facility] REPOSITORY HNO ID: [id number] Author: Gallito Charles Service: (none) Author Type: Physician Type: Progress Notes Filed: 10/18/2018 12:29 PM Note Text: Maria Ines returns today in follow-up of her left knee She is about 1 month following removal of multiple loose bodies from her lateral compartment Although her incisions are well-healed and she has very little swelling she continues to have symptoms with pain and catching on the lateral compartment I'm not sure whether these are true locking episodes and she has further loose fragmentation of the articular cartilage or femoral condyle or whether this is her articulating with the defect that she has on her femoral condyle At this point I like to get a repeat MRI so that we can assure that there is no further loose bodies If it is simply the defect that she has a femoral condyle giving her mechanical problems I think that we need to discuss surgical management in the forms of a reconstructive procedure We did go through the treatment algorithm and I think her options at this point in time would be large osteochondral allograft although she does have reciprocal arthritic changes on the tibial side The other option would be some form of focal resurfacing of both the femoral condyle and tibial plateau in the form of a uni-cap procedure I did discuss my conflicts of interest with regards to this device and given information that they could review online She understands that the knee is deteriorating and eventually she may require total knee arthroplasty but it would be good if we could defer this for a number of years especially at her young age I will review her back after the MRIs completed CNOV Observed: 10/18/2018 Status: COMPLETED Source: [place] 11:15 AM [facility] REPOSITORY Office Visit (SPRTMN) ASHOK SAUCEDA ([id number]) 1975 F KDR Date Time Provider Department 10/18/18 11:15 AM GALLITO CHARLES During your visit today, we recorded the following information about you: Gallito Charles MD 10/18/2018 12:29 PM Signed Maria Ines returns today in follow-up of her left knee She is about 1 month following removal of multiple loose bodies from her lateral compartment Although her incisions are well-healed and she has very little swelling she continues to have symptoms with pain and catching on the lateral compartment I'm not sure whether these are true locking episodes and she has further loose fragmentation of the articular cartilage or femoral condyle or whether this is her articulating with the defect that she has on her femoral condyle At this point I like to get a repeat MRI so that we can assure that there is no further loose bodies If it is simply the defect that she has a femoral condyle giving her mechanical problems I think that we need to discuss surgical management in the forms of a reconstructive procedure We did go through the treatment algorithm and I think her options at this point in time would be large osteochondral allograft although she does have reciprocal arthritic changes on the tibial side The other option would be some form of focal resurfacing of both the femoral condyle and tibial plateau in the form of a uni-cap procedure I did discuss my conflicts of interest with regards to this device and given information that they could review online She understands that the knee is deteriorating and eventually she may require total knee arthroplasty but it would be good if we could defer this for a number of years especially at her young age I will review her back after the MRIs completed Referring Provider: GALLITO CHARLES [[id number]] Allergies As of Date: 10/18/2018 Noted Allergy Reaction SULFA (SULFONAMIDE ANTIBIOTICS) 10/16/2005 1 - Mental Status Change Date Reviewed: 10/13/2018 Reviewed by: Dyana Terrazas (Rn) JOSH Hussein - Fully Assessed Primary Visit Diagnosis:Loose body of left knee [M23.42] Other Visit Diagnosis:Arthritis of knee [M17.10] Order(s):MRI KNEE WO TAYLER LT [[id number]] Order #: [id number] FUTURE Prescriptions as of 10/18/2018 Sig: TACROLIMUS 1 MG CAPSULE TAKE 2 MG IN THE AM, 3MG IN T* FUROSEMIDE 20 MG TABLET TAKE 1 TABLET NEEDED FOR E* CARVEDILOL 12.5 MG TABLET Take 1 tablet by mouth twice * AMLODIPINE 5 MG TABLET TAKE 1 TABLET DAILY MYCOPHENOLATE MOFETIL 250 MG * TAKE 2 CAPSULES BY MOUTH TWIC* SIMVASTATIN 20 MG TABLET TAKE 1 TABLET DAILY FAMOTIDINE 20 MG TABLET TAKE 2 TABLETS TWICE A DAY LEVOTHYROXINE 50 MCG TABLET TAKE 1 TABLET DAILY PREDNISONE 10 MG TABLET TAKE DIRECTED ARANESP INJECTION by INJECTION(UNSPECIFIED PARE* SODIUM CHLORIDE 0.9% FLUSH Access implanted vascular acc* HEPARIN, PORCINE (PF) 100 UNI* Access implanted vascular acc* AMOXICILLIN 500 MG TABLET Take four (4) tablets one ricky* ALLOPURINOL 100 MG TABLET Take 2 tablets by mouth once * SODIUM CHLORIDE 0.9% FLUSH Access implanted vascular acc* HEPARIN LOCK FLUSH (PORCINE) * Access implanted vascular acc* BIOTIN 10,000 MCG CAPSULE Take 1 capsule by mouth once * HEPARIN LOCK FLUSH (PORCINE) * NURSING USE ONLY: USE FOR I* SODIUM CHLORIDE 0.9% FLUSH NURSING USE ONLY: USED FOR * FERROUS SULFATE 325 MG (65 MG* Take 1 tablet by mouth twice * Problem List As Of Date 10/18/2018 Noted Resolved End stage renal disease [N18.6] INVALID FOR*09/28/2013 Nephritis and nephropathy, not specified as acu*INVALID FOR*09/01/2018 Systemic lupus erythematosus [M32.9] More... DIABETES MELLITUS TYPE II-UNCOMPL [E11.9] More... Legionnaires' disease [A48.1] 09/28/2013 More... MALIG SATISH ADNEXA NEC [C57.4] More... Acquired hemolytic anemia, unspecified [D59.9] More... Thrombocytopenia, unspecified [D69.6] More... 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 Cough [R05] 09/28/2013 More... Cystitis [595] 09/01/2018 More... Kidney replaced by transplant [Z94.0] INVALID FOR* More... Unspecified disease of white blood cells [D72.9]INVALID FOR*01/13/2011 Anemia, unspecified [D64.9] INVALID FOR*11/21/2011 Neutropenia, unspecified [D70.9] INVALID FOR* Need for prophylactic immunotherapy [Z29.8] INVALID FOR*09/28/2013 Anemia in chronic renal disease [N18.9, D63.1] INVALID FOR* More... Urinary tract infection, E. coli [N39.0, B96.20]INVALID FOR*09/28/2013 UTI (urinary tract infection) [N39.0] INVALID FOR*09/28/2013 Post-dural puncture headache [G97.1] INVALID FOR*09/28/2013 End stage renal disease (HCC) [N18.6] INVALID FOR* SUMMARY [V999.95] INVALID FOR*09/01/2018 More... Primary hypertension [I10] INVALID FOR* More... Mixed hyperlipidemia [E78.2] INVALID FOR* More... UTI (lower urinary tract infection) [N39.0] INVALID FOR*02/28/2015 More... Flu-like symptoms [R68.89] INVALID FOR*02/28/2015 More... DVT prophylaxis [IYK8400] INVALID FOR*02/28/2015 More... Loose body in knee [M23.40] INVALID FOR* More... Osteonecrosis (HCC) [M87.9] INVALID FOR* More... Personal history of DVT (deep vein thrombosis) *INVALID FOR* Renal transplant recipient [Z94.0] INVALID FOR* Loose body of left knee [M23.42] INVALID FOR* Encounter Status:Closed by GALLITO CHARLES MD on 10/18/18 [place] ABS GR + CBC Collected: 10/13/2018 Status: F Source: [place] 10:00 AM [facility] [place] REPOSITORY TYPE CODE TESTS RESULT OUT OF REFERENCE UNITS RANGE LAB WWBC 3.70-11.00 k/uL Low [place] WBC 3.54 LAB WRBC 3.90-5.20 m/uL Low [place] RBC 3.70 LAB WHGB 11.5-15.5 g/dL Low [place] Hemoglobin 10.8 LAB WHCT 36.0-46.0 % Low [place] Hematocrit 33.2 LAB WMCV 80.0-100.0 fL [place] MCV 89.7 LAB WMCH 26.0-34.0 pg [place] MCH 29.2 LAB WMCHC 30.5-36.0 g/dL [place] MCHC 32.5 LAB WRDW 11.5-15.0 % [place] RDW 12.3 LAB WPLT 150-400 k/uL [place] Platelet Cnt 181 LAB WMPV 9.0-12.7 fL [place] MPV 10.0 Result Comment: Test performed at: [facility] [place], [address] [place] [address] Rd[address] [place] [address]. LAB ABGRAN 1.45-7.50 k/uL Absol Gran 1.64 Count PTH, INTACT Collected: 10/13/2018 Status: F Source: [place] 10:00 [facility] REPOSITORY TYPE CODE TESTS RESULT OUT OF REFERENCE UNITS RANGE LAB PTH 15-65 pg/mL High PTH, Intact 77 Performed By: #### PTHI, VITD #### [facility] [address] [place] [address] VITAMIN D 25 HYDROXY Collected: 10/13/2018 Status: F Source: [place] 10:00 [facility] REPOSITORY TYPE CODE TESTS RESULT OUT OF REFERENCE UNITS RANGE LAB VITD 31.0-80.0 ng/mL Vitamin D 25 32.8 Hydroxy Result Comment: Classification of 25 [place] Vitamin D status: Insufficiency/Moderate Deficiency: < or = 30 ng/mL Sufficiency/Optimal Levels: 31 to 80 ng/mL Toxicity: > 100 ng/mL Test performed by chemiluminescent immunoassay. Performed By: #### PTHI, VITD #### [facility] [address] [place] [id number] RENAL FUNCTION PANEL Collected: 10/13/2018 Status: F Source: [place] 10:00 AM [facility] REPOSITORY TYPE CODE TESTS RESULT OUT OF REFERENCE UNITS RANGE LAB ALB 3.9-4.9 g/dL Albumin High 5.1 LAB CA 8.5-10.2 mg/dL Calcium, Total 10.0 LAB PHOS 2.7-4.8 mg/dL Phosphorus 4.4 LAB GLU 74-99 mg/dL Glucose 82 Result Comment: The [place] Diabetes Association (ADA) provides guidance for cutoff values for fasting glucose and random glucose. The ADA defines fasting as no caloric intake for at least 8 hours. Fas ting plasma glucose results between 100 to 125 mg/dL indicate increased risk for diabetes (prediabetes). Fasting plasma glucose results greater than or equal to 126 mg/dL meet the criteria for diagnosis of diabetes. In the absence of unequivocal hyperglycemia, results should be confirmed by repeat testing. In a patient with classic symptoms of hyperglycemia or hyperglycemic crisis, random plasma glucose results greater than or equal to 200 mg/dL meet the criteria for diagnosis of diabetes. Reference: Standards of Medical Care in Diabetes 2016, [place] Diabetes Association. Diabetes Care. 2016.39(Suppl 1). LAB BUN 7-21 mg/dL BUN High 44 LAB CRET 0.58-0.96 mg/dL Creatinine High 1.92 LAB NA 136-144 mmol/L Sodium 141 LAB K 3.7-5.1 mmol/L Potassium 4.5 LAB CL 97-105 mmol/L Chloride High 108 LAB CO2 22-30 mmol/L Low CO2 19 LAB AGAP 9-18 mmol/L Anion Gap 14 LAB GFRAA eGFR- Amer. 34 LAB GFRNAA . eGFR-All Other Races 29 Result Comment: eGFR (Estimated GFR) Units of measure: mL/min/1.73 meters squared eGFR is derived from the reexpressed MDRD Study equation using the following parameters: serum creatinine, age, gender and race. The creatinine assay has been calibrated to be traceable to IDMS. An eGFR <60 mL/min/1.73m2 for >3 months is consistent with chronic kidney disease. Refer to KDOQI guidelines for clinical interpretation. In patients with unstable renal function, e.g. those with acute kidney injury, the eGFR may not accurately reflect actual GFR. Performed By: #### RFP #### [facility] [address] [place], [place] [address] TACROLIMUS / FK506 Collected: 10/13/2018 Status: F Source: [place] 10:00 AM [facility] REPOSITORY TYPE CODE TESTS RESULT OUT OF REFERENCE UNITS RANGE LAB FK506 5.0-20.0 ng/mL Tacrolimus / 6.2 FK506 Result Comment: These reference ranges are provided as a general recommendation. Individualized target levels for a given patient will depend on many factors (including the type of organ transplant, ti me since transplantation, concurrent medications, and other clinical factors), and should be assessed by those health care providers experienced in the management of immunosuppression. Reference ranges and high/low indicator flags are provided as general guidelines only. The treating physician must determine appropriate target levels/dosing based on the specific clinical situation. Test performed by chemiluminescent immunoassay using Rob Shirt Operator. Performed By: #### FK506 #### [facility] [address] [place], [place] [address] PROGRESS Observed: 10/08/2018 Status: COMPLETED Source: [place] 5:00 PM [facility] REPOSITORY HNO ID: [id number] Author: Sandy Travis (Pa) Service: (none) Author Type: Physician Part Time Receptionist Type: Progress Notes Filed: 10/08/2018 5:34 PM Note Text: Edgardo Alaniz MD Boiler House Inspector of Orthopaedic Surgery [address] [facility] [address] [place] [address] Ashok Sauceda is a 42 year old year old female who returns today 3 weeks post op : Surgery/Procedure Date: 09/17/2018 Incision/Procedure Start Time: 8:01 AM Incision Close/Procedure End Time: 8:22 AM ? Surgeon(s)/Proceduralist(s) and Part Time Receptionist(s): Surgeon(s) and Role: * Gallito Charles - Primary * Miky Whyte - Resident - Assisting School Inspector: Michael Chan ? ? I was present for and performed or supervised all Critical portions of the procedure ? Gallito Charles MD ? ? ? 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 ? POSTOPERATIVE DIAGNOSIS: 1. Osteonecrosis and loose bodies, left knee. 2. Lateral meniscus tear, left knee. ? SURGEON: Gallito Charles MD ? KILN CAR UNLOADER: Miky Whyte MD. ? SURGERY/PROCEDURE: Left knee arthroscopy debridement removal of loose bodies and partial lateral meniscectomy 42 year old female with multiple medical problems including SLE and s/p kidney transplant on cellcept and 10mg prednisone. Prior hx of DVT in UE - after port was placed over 10 years ago. Reports did not take 14 days of aspirin. Allergies and Current Medications reviewed and verified. Pain Assessment: localized to medial knee -02/23 Denies f/c/s but reports has head cold presently. Physical Exam: Temp : 99.5 Incisions are healing well. Medial incision has slight pinkness without drainage or induration. There is a small area about 1mm below medial incision that is whitish - possibly dry skin that upon attempt to express yielded no drainage after first cleansing with iodine. ROM: 0/0/130 Calf is soft, non-tender. Ankle without edema. Effusion: mild Activation SLR: Positive Quad Set: Positive Impression: 1) Pt is doing well post op 2) No signs of infection or DVT Plan: 1) Arthroscopy photos reviewed with patient 2) Sutures removed today and steri-strips applied 3) Physical therapy- to begin next week 4) Weight bearing status: as tolerated full 5) Return to clinic 10/18 for follow up but will have virtual visit with Akiko Grossman CNP next week. Her email is [email or web address] Patient educated on sxs of infection and was advised to contact office if has drainage, fever, redness, pain. CNOV Observed: 10/08/2018 Status: COMPLETED Source: [place] 5:00 PM [facility] REPOSITORY Office Visit (SPHTB) ASHOK SAUCEDA ([id number]) 1975 F KDR Date Time Provider Department 10/08/18 5:00 PM SANDY TRAVIS) SPHTB During your visit today, we recorded the following information about you: Temperature 99.5 degrees Sandy Travis PA-C 10/08/2018 5:34 PM Signed Edgardo Alaniz MD [facility] Inspector of Orthopaedic Surgery [address] [facility] [address] [place] [address] sAhok Sauceda is a 42 year old year old female who returns today 3 weeks post op : Surgery/Procedure Date: 09/17/2018 Incision/Procedure Start Time: 8:01 AM Incision Close/Procedure End Time: 8:22 AM ? Surgeon(s)/Proceduralist(s) and Part Time Receptionist(s): Surgeon(s) and Role: * Gallito Charles - Primary * Miky Whyte - Resident - Assisting School Inspector: Michael Chan ? ? I was present for and performed or supervised all Critical portions of the procedure ? Gallito Charles MD ? ? ? 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 ? POSTOPERATIVE DIAGNOSIS: 1. Osteonecrosis and loose bodies, left knee. 2. Lateral meniscus tear, left knee. ? SURGEON: Gallito Charles MD ? KILN CAR UNLOADER: Miky Whyte MD. ? SURGERY/PROCEDURE: Left knee arthroscopy debridement removal of loose bodies and partial lateral meniscectomy 42 year old female with multiple medical problems including SLE and s/p kidney transplant on cellcept and 10mg prednisone. Prior hx of DVT in UE - after port was placed over 10 years ago. Reports did not take 14 days of aspirin. Allergies and Current Medications reviewed and verified. Pain Assessment: localized to medial knee 3-02/23 Denies f/c/s but reports has head cold presently. Physical Exam: Temp : 99.5 Incisions are healing well. Medial incision has slight pinkness without drainage or induration. There is a small area about 1mm below medial incision that is whitish - possibly dry skin that upon attempt to express yielded no drainage after first cleansing with iodine. ROM: 0/0/130 Calf is soft, non-tender. Ankle without edema. Effusion: mild Activation SLR: Positive Quad Set: Positive Impression: 1) Pt is doing well post op 2) No signs of infection or DVT Plan: 1) Arthroscopy photos reviewed with patient 2) Sutures removed today and steri-strips applied 3) Physical therapy- to begin next week 4) Weight bearing status: as tolerated full 5) Return to clinic 10/18 for follow up but will have virtual visit with Akiko Grossman CNP next week. Her email is [email or web address] Patient educated on sxs of infection and was advised to contact office if has drainage, fever, redness, pain. Sandy Travis PA-C 10/08/2018 5:22 PM Signed Please make sure you have a follow up virtual visit with Akiko Benavides NP next week. [phone]. If drainage occurs do not shower and you must cover your incision. If you have any drainage other than a few spots please call the office and be sure to cover your incision. When you shower - let water run down your incision and steristrips but do not scrub it. After the shower pat the steri strips dry. Do not apply ointments or lotions to your incisions. No baths, hot tubs, swimming pools, or any standing water for 6 weeks at least after surgery. If you experience fever of 101.5 or greater, chills, sweats, redness or increased pain please call the office right away [phone]. If it is after hours or a weekend you can call [phone] and ask for the Orthopaedic resident metal bonder or go to your local emergency room. Please remember to take your pain medication as directed. If you need a refill please notify the office at LEAST 48 hours before you will be out of your medication. Some pain medications cannot be called in to a pharmacy and have to be printed on paper and picked up at the office. If you have been prescribed aspirin to prevent blood clots please follow the instructions and dosage information you were given. Please wear the Thomas hose stockings you were given to help prevent blood clots and do your exercises after surgery as these will help reduce your risk of blood clots. General recommendations: Do not apply ice to an open wound or healing skin or to any area with decreased sensation. If your skin is sensitive to the cold you may put a thin cloth barrier between your skin and the ice bag. If you cannot take an NSAID, you may take Acetaminophen (Tylenol) 500 to 1,000mg every 8 hours as needed for pain. Do not take more than 3,000mg of Acetaminophen in a 24 hour period. Use caution when taking other medications that may also contain Acetaminophen (Excedrin, Vicodin, Percocet for example) as these contribute to the maximum daily dose of Acetaminophen. If you have an allergy to Acetaminophen (Tylenol) or have liver disease do NOT take Acetaminophen. Referring Provider: GALLITO CHARLES [[id number]] Allergies As of Date: 10/08/2018 Noted Allergy Reaction SULFA (SULFONAMIDE ANTIBIOTICS) 10/16/2005 1 - Mental Status Change Date Reviewed: 09/22/2018 Reviewed by: Clara Pascal, RN, RN - Fully Assessed Primary Visit Diagnosis:Loose body of left knee [M23.42] Prescriptions as of 10/08/2018 Sig: TACROLIMUS 1 MG CAPSULE TAKE 2 MG IN THE AM, 3MG IN T* FUROSEMIDE 20 MG TABLET TAKE 1 TABLET NEEDED FOR E* CARVEDILOL 12.5 MG TABLET Take 1 tablet by mouth twice * AMLODIPINE 5 MG TABLET TAKE 1 TABLET DAILY MYCOPHENOLATE MOFETIL 250 MG * TAKE 2 CAPSULES BY MOUTH TWIC* SIMVASTATIN 20 MG TABLET TAKE 1 TABLET DAILY FAMOTIDINE 20 MG TABLET TAKE 2 TABLETS TWICE A DAY LEVOTHYROXINE 50 MCG TABLET TAKE 1 TABLET DAILY PREDNISONE 10 MG TABLET TAKE DIRECTED ARANESP INJECTION by INJECTION(UNSPECIFIED PARE* SODIUM CHLORIDE 0.9% FLUSH Access implanted vascular acc* HEPARIN, PORCINE (PF) 100 UNI* Access implanted vascular acc* AMOXICILLIN 500 MG TABLET Take four (4) tablets one ricky* ALLOPURINOL 100 MG TABLET Take 2 tablets by mouth once * SODIUM CHLORIDE 0.9% FLUSH Access implanted vascular acc* HEPARIN LOCK FLUSH (PORCINE) * Access implanted vascular acc* BIOTIN 10,000 MCG CAPSULE Take 1 capsule by mouth once * HEPARIN LOCK FLUSH (PORCINE) * NURSING USE ONLY: USE FOR I* SODIUM CHLORIDE 0.9% FLUSH NURSING USE ONLY: USED FOR * FERROUS SULFATE 325 MG (65 MG* Take 1 tablet by mouth twice * Problem List As Of Date 10/08/2018 Noted Resolved End stage renal disease [N18.6] INVALID FOR*09/28/2013 Nephritis and nephropathy, not specified as acu*INVALID FOR*09/01/2018 Systemic lupus erythematosus [M32.9] Priority: Mild More... DIABETES MELLITUS TYPE II-UNCOMPL [E11.9] More... Legionnaires' disease [A48.1] 09/28/2013 More... MALIG SATISH ADNEXA NEC [C57.4] More... Acquired hemolytic anemia, unspecified [D59.9] More... Thrombocytopenia, unspecified [D69.6] More... 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 Cough [R05] 09/28/2013 More... Cystitis [595] 09/01/2018 More... Kidney replaced by transplant [Z94.0] INVALID FOR* Priority: A More... Unspecified disease of white blood cells [D72.9]INVALID FOR*01/13/2011 Anemia, unspecified [D64.9] INVALID FOR*11/21/2011 Neutropenia, unspecified [D70.9] INVALID FOR* Need for prophylactic immunotherapy [Z29.8] INVALID FOR*09/28/2013 Anemia in chronic renal disease [N18.9, D63.1] INVALID FOR* More... Urinary tract infection, E. coli [N39.0, B96.20]INVALID FOR*09/28/2013 UTI (urinary tract infection) [N39.0] INVALID FOR*09/28/2013 Post-dural puncture headache [G97.1] INVALID FOR*09/28/2013 End stage renal disease (HCC) [N18.6] INVALID FOR* SUMMARY [V999.95] INVALID FOR*09/01/2018 Priority: Very Severe More... Primary hypertension [I10] INVALID FOR* Priority: B More... Mixed hyperlipidemia [E78.2] INVALID FOR* Priority: C More... UTI (lower urinary tract infection) [N39.0] INVALID FOR*02/28/2015 Priority: Severe More... Flu-like symptoms [R68.89] INVALID FOR*02/28/2015 Priority: Moderate More... DVT prophylaxis [OBD1974] INVALID FOR*02/28/2015 Priority: D More... Loose body in knee [M23.40] INVALID FOR* More... Osteonecrosis (HCC) [M87.9] INVALID FOR* More... Personal history of DVT (deep vein thrombosis) *INVALID FOR* Renal transplant recipient [Z94.0] INVALID FOR* Loose body of left knee [M23.42] INVALID FOR* Other instructions from your clinician: Please make sure you have a follow up virtual visit with Akiko Benavides NP next week. [phone]. If drainage occurs do not shower and you must cover your incision. If you have any drainage other than a few spots please call the office and be sure to cover your incision. When you shower - let water run down your incision and steristrips but do not scrub it. After the shower pat the steri strips dry. Do not apply ointments or lotions to your incisions. No baths, hot tubs, swimming pools, or any standing water for 6 weeks at least after surgery. If you experience fever of 101.5 or greater, chills, sweats, redness or increased pain please call the office right away [phone]. If it is after hours or a weekend you can call [phone] and ask for the Orthopaedic resident metal bonder or go to your local emergency room. Please remember to take your pain medication as directed. If you need a refill please notify the office at LEAST 48 hours before you will be out of your medication. Some pain medications cannot be called in to a pharmacy and have to be printed on paper and picked up at the office. If you have been prescribed aspirin to prevent blood clots please follow the instructions and dosage information you were given. Please wear the Thomas hose stockings you were given to help prevent blood clots and do your exercises after surgery as these will help reduce your risk of blood clots. General recommendations: Do not apply ice to an open wound or healing skin or to any area with decreased sensation. If your skin is sensitive to the cold you may put a thin cloth barrier between your skin and the ice bag. If you cannot take an NSAID, you may take Acetaminophen (Tylenol) 500 to 1,000mg every 8 hours as needed for pain. Do not take more than 3,000mg of Acetaminophen in a 24 hour period. Use caution when taking other medications that may also contain Acetaminophen (Excedrin, Vicodin, Percocet for example) as these contribute to the maximum daily dose of Acetaminophen. If you have an allergy to Acetaminophen (Tylenol) or have liver disease do NOT take Acetaminophen. Medications Discontinued During This Encounter docusate sodium (COLACE) 100 mg caps* 60 c* 0 09/17/2018 10/08/2018 Class: Print RX Route: ORAL Sig: Take 1 capsule by mouth twice daily as needed for Constipation (take while taking narcotic pain medication). Disc: Reason for discontinue is not on file. aspirin, enteric coated (ECOTRIN) 32* 14 t* 0 09/17/2018 10/08/2018 Class: Print RX Sig: One tablet by mouth once a day for the first 14 days post op Disc: Reason for discontinue is not on file. Follow-up and Disposition History Recorded Encounter Status:Closed by SANDY TRAVIS PA-C on 10/08/18 TACROLIMUS / FK506 Collected: 09/22/2018 Status: F Source: [place] 10:15 AM [facility] REPOSITORY TYPE CODE TESTS RESULT OUT OF REFERENCE UNITS RANGE LAB FK506 5.0-20.0 ng/mL Tacrolimus / 6.0 FK506 Result Comment: These reference ranges are provided as a general recommendation. Individualized target levels for a given patient will depend on many factors (including the type of organ transplant, ti me since transplantation, concurrent medications, and other clinical factors), and should be assessed by those health care providers experienced in the management of immunosuppression. Reference ranges and high/low indicator flags are provided as general guidelines only. The treating physician must determine appropriate target levels/dosing based on the specific clinical situation. Test performed by chemiluminescent immunoassay using famPlus. Performed By: #### FK506 #### [facility] [address] [address] HEPATIC FUNCTN PANEL Collected: 09/22/2018 Status: F Source: [place] 10:14 [facility] REPOSITORY TYPE CODE TESTS RESULT OUT OF REFERENCE UNITS RANGE LAB ALB 3.9-4.9 g/dL Albumin 4.8 LAB TBIL 0.2-1.3 mg/dL Bilirubin, Total 0.3 LAB CBIL <0.2 mg/dL Bilirubin,Conjuga <0.2 thomas LAB ALKP 34-123 U/L Alkaline Phosphatase 77 LAB AST 13-35 U/L AST 13 LAB ALT 7-38 U/L ALT 9 LAB TP 6.3-8.0 g/dL Protein, Total 7.0 CBC AND DIFFERENTIAL Collected: 09/22/2018 Status: F Source: [place] 10:14 AM [facility] REPOSITORY TYPE CODE TESTS RESULT OUT OF REFERENCE UNITS RANGE LAB WBC 3.70-11.00 k/uL Low WBC 2.74 LAB RBC 3.90-5.20 m/uL Low RBC 3.58 LAB HGB 11.5-15.5 g/dL Low Hemoglobin 10.4 LAB HCT 36.0-46.0 % Low Hematocrit 33.1 LAB MCV 80.0-100.0 fL MCV 92.5 LAB MCH 26.0-34.0 pG MCH 29.1 LAB MCHC 30.5-36.0 g/dL MCHC 31.4 LAB RDWCV 11.5-15.0 % RDW-CV 12.0 LAB PLTCT 150-400 k/uL Platelet Count 182 LAB MPV 9.0-12.7 fL MPV 10.0 LAB ANEUT % Neut% 46.3 LAB AANEUT 1.45-7.50 k/uL Low Abs Neut 1.26 LAB ALYMP % Lymph% 38.7 LAB AALYMP 1.00-4.00 k/uL Abs Lymph 1.06 LAB AMONO % [place]% 12.8 LAB AAMONO <0.87 k/uL Abs [place] 0.35 LAB AEOS % Eosin% 1.8 LAB AAEOS <0.46 k/uL Abs Eosin 0.05 LAB ABASO % Baso% 0.4 LAB AABASO <0.11 k/uL Abs Baso <0.03 LAB AUNRBC 0 /100 WBC NRBCs 0.0 LAB ABNRBC <0.01 k/uL Absolute nRBC <0.01 LAB DTYP DTYPE Auto Diff Performed By: #### CBCDIF, RFP, PTHI, VITD #### [facility] [address] [place] [address] RENAL FUNCTION PANEL Collected: 09/22/2018 Status: F Source: [place] 10:14 AM [facility] REPOSITORY TYPE CODE TESTS RESULT OUT OF REFERENCE UNITS RANGE LAB ALB 3.9-4.9 g/dL Albumin 4.7 LAB CA 8.5-10.2 mg/dL Calcium, Total 10.1 LAB PHOS 2.7-4.8 mg/dL Phosphorus 3.0 LAB GLU 74-99 mg/dL Glucose 86 Result Comment: The [place] Diabetes [employer] (ADA) provides guidance for cutoff values for fasting glucose and random glucose. The ADA defines fasting as no caloric intake for at least 8 hours. Fas ting plasma glucose results between 100 to 125 mg/dL indicate increased risk for diabetes (prediabetes). Fasting plasma glucose results greater than or equal to 126 mg/dL meet the criteria for diagnosis of diabetes. In the absence of unequivocal hyperglycemia, results should be confirmed by repeat testing. In a patient with classic symptoms of hyperglycemia or hyperglycemic crisis, random plasma glucose results greater than or equal to 200 mg/dL meet the criteria for diagnosis of diabetes. Reference: Standards of Medical Care in Diabetes 2016, [place] [employer] Association. Diabetes Care. 2016.39(Suppl 1). LAB BUN 7-21 mg/dL BUN High 34 LAB CRET 0.58-0.96 mg/dL Creatinine High 1.63 LAB NA 136-144 mmol/L Sodium 140 LAB K 3.7-5.1 mmol/L Potassium 4.2 LAB CL 97-105 mmol/L Chloride 104 LAB CO2 22-30 mmol/L Low CO2 21 LAB AGAP 9-18 mmol/L Anion Gap 15 LAB GFRAA eGFR- Amer. 42 LAB GFRNAA . eGFR-All Other Races 34 Result Comment: eGFR (Estimated GFR) Units of measure: mL/min/1.73 meters squared eGFR is derived from the reexpressed MDRD Study equation using the following parameters: serum creatinine, age, gender and race. The creatinine assay has been calibrated to be traceable to IDMS. An eGFR <60 mL/min/1.73m2 for >3 months is consistent with chronic kidney disease. Refer to KDOQI guidelines for clinical interpretation. In patients with unstable renal function, e.g. those with acute kidney injury, the eGFR may not accurately reflect actual GFR. Performed By: #### CBCDIF, RFP, PTHI, VITD #### [facility] [address] [place] [address] PTH, INTACT Collected: 09/22/2018 Status: F Source: [place] 10:14 AM [facility] REPOSITORY TYPE CODE TESTS RESULT OUT OF REFERENCE UNITS RANGE LAB PTH 15-65 pg/mL High PTH, Intact 83 Performed By: #### CBCDIF, RFP, PTHI, VITD #### [facility] [address] [place] [address] VITAMIN D 25 HYDROXY Collected: 09/22/2018 Status: F Source: [place] 10:14 AM [facility] REPOSITORY TYPE CODE TESTS RESULT OUT OF REFERENCE UNITS RANGE LAB VITD 31.0-80.0 ng/mL Vitamin D 25 37.0 Hydroxy Result Comment: Classification of 25 [place] Vitamin D status: Insufficiency/Moderate Deficiency: < or = 30 ng/mL Sufficiency/Optimal Levels: 31 to 80 ng/mL Toxicity: > 100 ng/mL Test performed by chemiluminescent immunoassay. Performed By: #### CBCDIF, RFP, PTHI, VITD #### [facility] [address] [place], [place] [address] DULCE ABS GR + CBC Collected: 09/22/2018 Status: F Source: [place] 10:13 AM [facility] REPOSITORY TYPE CODE TESTS RESULT OUT OF REFERENCE UNITS RANGE LAB WWBC 3.70-11.00 k/uL Low [place] WBC 2.78 LAB WRBC 3.90-5.20 m/uL Low [place] RBC 3.56 LAB WHGB 11.5-15.5 g/dL Low [place] Hemoglobin 10.6 LAB WHCT 36.0-46.0 % Low [place] Hematocrit 32.7 LAB WMCV 80.0-100.0 fL [place] MCV 91.9 LAB WMCH 26.0-34.0 pg [place] MCH 29.8 LAB WMCHC 30.5-36.0 g/dL [place] MCHC 32.4 LAB WRDW 11.5-15.0 % [place] RDW 12.2 LAB WPLT 150-400 k/uL [place] Platelet Cnt 172 LAB WMPV 9.0-12.7 fL [place] MPV 9.8 Result Comment: Test performed at: [facility], [address] [place] [address] Rd[address] [place] [address]. LAB ABGRAN 1.45-7.50 k/uL Low Absol 1.22 Gran Count ANES POST Observed: 09/17/2018 Status: COMPLETED Source: [place] 11:00 AM [facility] REPOSITORY HNO ID: [id number] Author: June Mcnamara Service: Anesthesiology Author Type: Anesthesiologist Type: Anesthesia PostOp Filed: 09/17/2018 11:01 AM Note Text: POST ANESTHESIA EVALUATION NOTE SERVICE DATE: 09/17/2018 SERVICE TIME: 11:01 AM : 1975 Vitals: 09/17/18 0620 09/17/18 0828 Temp: 36.2 ?C (97.2 ?F) 36.1 ?C (97 ?F) 09/17/18 0840 09/17/18 0855 09/17/18 0910 09/17/18924 BP: 114/78 126/79 125/83 116/78 09/17/18 0840 09/17/18 0855 09/17/18 0910 09/17/18924 Pulse: (!) 58 (!) 55 (!) 59 (!) 57 09/17/18 0840 09/17/18 0855 09/17/18 0910 09/17/18924 Resp: 16 10 12 12 09/17/18 0840 09/17/18 0855 09/17/18 0910 09/17/18924 SpO2: 98% 97% 99% 98% Validated Vital Signs: Yes POST ANES STATUS: No apparent anesthetic complications. The patient is appropriately hydrated with stable respiratory and cardiovascular status. Patient has safe and adequate airway control. The patient has appropriate pain relief and no significant post operative nausea or vomiting. The patient has achieved baseline mental status. Intra-Operative Events: No Significant Anesthesia Events Further assessment by Anesthesia Service: None Other Remarks: SIGNATURE: June Mcnamara MD PATIENT NAME: Ashok Sauceda DATE: September 17, 2018 TIME: 11:01 AM PAGER/CONTACT #: [id number] PT ED Observed: 09/17/2018 Status: COMPLETED Source: [place] 9:24 AM [facility] REPOSITORY HNO ID: [id number] Author: Emilie Peters RN Service: (none) Author Type: Registered Nurse Type: Patient Education Filed: 09/17/2018 9:24 AM Note Text: POST OP LEARNING RESPONSE INSTRUCTION PROVIDED TO: Patient and family member METHOD OF INSTRUCTION: Verbal instruction PATIENT / FAMILY RESPONSE: Information received as demonstrated by interest and questions FOLLOW-UP PLAN: Complete - No need for follow-up SUPPLEMENTAL MATERIAL: None REFERRAL (RECOMMENDATION): None Electronically Signed By: Emilie Peters RN In Department: [facility] SURGERY BRIEF OP NOT Observed: 09/17/2018 Status: COMPLETED Source: [place] 8:30 AM [facility] REPOSITORY HNO ID: [id number] Author: Miky Whyte Service: Orthopaedic Surgery Author Type: Fellow Type: Brief Op Note Filed: 09/17/2018 8:32 AM Note Text: BRIEF OP NOTE LOG ID: [id number] Surgery/Procedure Date: 09/17/2018 Incision/Procedure Start Time: 8:01 AM Incision Close/Procedure End Time: 8:22 AM Surgeon(s)/Proceduralist(s) and Part Time Receptionist(s): Surgeon(s) and Role: * Gallito Charles - Primary * Miky Whyte - Resident - Assisting Procedure(s): Left knee arthroscopy with loose body removal, partial lateral meniscectomy and chondroplasty [facility] Anesthesia: General Findings: See op report Estimated Blood Loss: 0 ml Specimens: None Complications: None Pre-Op/Pre-Procedure Diagnosis: Left knee OA Post-Op/Post-Procedure Diagnosis: Same, lateral meniscal tear SIGNATURE: Miky Whyte DO PATIENT NAME: Ashok Sauceda DATE: September 17, 2018 TIME: 8:30 AM PAGER/CONTACT #: [phone] PREOP Observed: 09/17/2018 Status: COMPLETED Source: [place] 6:32 AM [facility] REPOSITORY O ID: [id number] Author: June Mcnamara Service: Anesthesiology Author Type: Anesthesiologist Type: Anesthesia PreOp Filed: 09/17/2018 6:34 AM Note Text: ANESTHESIOLOGY DAY OF SURGERY NOTE SERVICE DATE: 09/17/2018 SERVICE TIME: 6:33 AM : 1975 Procedure(s) (LRB): ARTHROSCOPY KNEE ARTICULAR CARTILAGE SHAVING OR DEBRIDEMENT (Left) CHONDROPLASTY KNEE (Left) ARTHROSCOPIC REMOVAL LOOSE BODY KNEE (Left) Surgeon(s): Gallito Charles Estimated body mass index is 23.29 kg/m? as calculated from the following: Height as of 09/07/18: 160 cm (5' 3). Weight as of 09/07/18: 59.6 kg (131 lb 8 oz). 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 Kidney Disease Stage V Or End Stage Renal Disease(404.92) Corpus Luteum Cyst Or Hematoma Kidney Replaced By Transplant Neutropenia, Unspecified (Hcc) Anemia in Chronic Renal Disease End Stage Renal Disease (Hcc) Primary Hypertension Mixed Hyperlipidemia Loose Body in Knee Osteonecrosis (Hcc) Personal History of Dvt (Deep Vein Thrombosis) Renal Transplant Recipient 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 - Corpus luteum cyst or hematoma left ovary mass laparascopically biopsied 2002; benign corpus luteum - Cough jeanna induced - Cystitis x1 summer 2004 (presented with fever) - Fracture Childhood, L arm; states she 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 - Hyperlipidemia 02/22/2015 - Legionnaires' disease (HCC) 1996 during SLE flare, serum antigen +, but urine antigen negative; treated anyway - Malignant neoplasm of other specified sites of uterine adnexa 2001 open resection right ovary; suspicious lymphadenopathy and PET results led to lap node sampling end of 2001 with negative results; no chemo/XRT; no PET or CT scans for awhile - Nephritis and nephropathy, not specified as acute or chronic, with other specified pathological lesion in kidney, in diseases classified elsewhere 1996 nephrotic/nephritic, biopsy Class III treated [facility] steroids; biopsy 1997 Class Vb; ? Class IV (received CTX); 2000 and 2001 (? 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; quiescent - Type II or unspecified type diabetes mellitus without mention of complication, not stated as uncontrolled steroid induced; also had probably steroid psychosis with high dose - Unspecified hypertensive heart and kidney disease without heart failure and with chronic kidney disease stage V or end stage renal disease(404.92) - Unspecified hypothyroidism PAST SURGICAL HISTORY Procedure Laterality Date - PAST SURGICAL HISTORY OF right oophorectomy, left ovarian biopsy; multiple kidney biopsies; paraaortic and axillary lymph node sampling - PAST SURGICAL HISTORY OF 2002, 2002 lymph node biopsies - PAST SURGICAL HISTORY OF 2005 peritoneal dialysis cath placement - PAST SURGICAL HISTORY OF 2005 AVF, AV graft - PAST SURGICAL HISTORY OF 01/05/2012 Kidney transplant - TRANSPLANT KIDNEY W/WO DOP 12/31/2006 FAMILY HISTORY Problem Relation Age of Onset - Hypertension Mother - Hypertension Father - Diabetes Father - Ischemic Heart Disease Father - Stroke Father Social History: Social History Substance Use Topics - Smoking status: Never Smoker - Smokeless tobacco: Never Used - Alcohol use No No current facility-administered medications on file prior to encounter. Current Outpatient Prescriptions on File Prior to Encounter: carvedilol (COREG) 12.5 mg tablet Take 1 tablet by mouth twice daily. amLODIPine (NORVASC) 5 mg tablet TAKE 1 TABLET DAILY mycophenolate mofetil (CELLCEPT) 250 mg capsule TAKE 2 CAPSULES BY MOUTH TWICE DAILY. Z94.0 simvastatin (ZOCOR) 20 mg tablet TAKE 1 TABLET DAILY famotidine (PEPCID) 20 mg tablet TAKE 2 TABLETS TWICE A DAY levothyroxine (SYNTHROID) 50 mcg tablet TAKE 1 TABLET DAILY predniSONE (DELTASONE) 10 mg tablet TAKE DIRECTED 0.9 % SODIUM CHLORIDE (0.9% NACL) Access implanted vascular access device (IVAD) as needed for flush, blood draw or treatment.Flush IVAD with 10-20 mL NS every 4 weeks and PRN when IVAD not in use. heparin 100 unit/mL injection Access implanted vascular access device (IVAD) as needed for flush, blood draw or treatment. Before de-accessing port, flush with 10-20ml normal saline and follow with 5 mL heparin (100 units/mL) (if no heparin allergy). De-access port on treatment completion. allopurinol (ZYLOPRIM) 100 mg tablet Take 2 tablets by mouth once daily. 0.9% NaCl Access implanted vascular access device (IVAD) as needed for flush, blood draw or treatment.Flush IVAD with 10-20 mL NS every 4 weeks and PRN when IVAD not in use. heparin 100 unit/mL syrg Access implanted vascular access device (IVAD) as needed for flush, blood draw or treatment. Before de-accessing port, flush with 10-20ml normal saline and follow with 5 mL heparin (100 units/mL) (if no heparin allergy). De-access port on treatment completion. acetaminophen (TYLENOL) 500 mg tablet Take 1,000 mg by mouth every 6 hours as needed. heparin 100 unit/mL syrg NURSING USE ONLY: USE FOR IVAD ACCESS FLUSH. AMBULATORY/OUTPATINET: PLEASE REORDER UPON HOSPITAL DISCHARGEMay access implanted vascular access device (IVAD) as needed for treatment. Before de-accessing port, flush with 10-20ml normal saline and follow with 5 mL heparin (100 units/mL) (if no heparin allergy). 0.9% NaCl NURSING USE ONLY: USED FOR IVAD ACCESS. AMBULATORY/OUTPATIENT: PLEASE REORDER UPON HOSPITAL DISCHARGE May access implanted vascular access device (IVAD) as needed for treatment.Flush IVAD with 10-20 mL NS every 4 weeks and PRN when IVAD not in use. Ferrous Sulfate (IRON) 325 mg (65 mg iron) tablet Take 1 tablet by mouth twice daily. DARBEPOETIN MARY KAY IN ALBUMN ODELL (ARANESP INJECTION) by INJECTION(UNSPECIFIED PARENTERAL ROUTES) route. Amoxicillin 500 mg tablet Take four (4) tablets one hour before dental procedure. Biotin 10,000 mcg cap Take 1 capsule by mouth once daily. Current Facility-Administered Medications: lactated ringers infusion 5-30 mL/hr INTRAVENOUS CONTINUOUS Akiko Craig) Kennedy ceFAZolin iv piggyback 2 g in D5W (iso-osmotic) 100 mL (ANCEF) 2 g INTRAVENOUS Pre-Op Once Akiko Craig) Kennedy acetaminophen 1,000 mg tab(s) (TYLENOL) 1,000 mg ORAL Pre- Op Once June White Allergies: ALLERGIES Allergen Reactions - Sulfa (Sulfonamide * Mental Status Change DOS EXAM: Adequate NPO status: Yes Anesthetic risks, benefits, alternatives, personnel and consent discussed: Yes Patient agrees to proceed: Yes Previous Anesthesia: No history of adverse event. Airway Assessment: MP 2; Neck ROM: Full ROM without neurologic symptoms; Airway Evaluation: No significant abnormalities Symptoms of Sleep Apnea: Hypertension Dentition: Teeth intact Additional Physical Exam: Lungs: Patient health status unchanged since recent history and physical. See history and physical for exam findings. Cardiac: Patient health status unchanged since recent history and physical. See history and physical for exam findings. Additional Pertinent Findings: N/A Blood Products: Not anticipated for this procedure. Anesthetic Plan: General, Standard ASA Monitors, LMA Pain Management Plan: Parenteral or Oral ASA Class: 3 Other Medical Problems: None. Taking 10mg prednisone daily (last dose today) for gout flare. History of ESRD, on HD, no HD in years (functioning kidney transplant) Chronic Beta Alix medication administered within 24 hours: Yes I have interviewed and examined the patient. I have reviewed the medical record and/or the pre-anesthesia evaluation, pertinent labs, and test results. Significant changes in the patient's condition since the History and Physical, not otherwise documented in primary service progress notes: No This contains updated information obtained within 48 hours of Surgery/Procedure. SIGNATURE: June Mcnamara MD PATIENT NAME: Ashok Sauceda DATE: September 17, 2018 TIME: 6:33 AM CSN: [id number] PT ED Observed: 09/17/2018 Status: COMPLETED Source: [place] 6:22 AM [facility] REPOSITORY HNO ID: [id number] Author: Kana (Rn) JOSH Blank Service: (none) Author Type: Registered Nurse Type: Patient Education Filed: 09/17/2018 6:22 AM Note Text: PRE OP LEARNING ASSESSMENT PROCEDURE/SURGERY: SURGERY: READINESS TO LEARN COGNITIVE ABILITY: Alert and oriented MOTIVATION TO LEARN: Interested FAMILY SUPPORT: High - Very involved in pt care PATIENT LEARNS BEST BY: Individual Instruction Verbal Instruction FACTORS AFFECTING LEARNING: None PHYSICAL LIMITATIONS AFFECTING LEARNING: None Electronically Signed By: Kana Blank RN In Department: [facility] SURGERY OPERATIVE NO Observed: 09/17/2018 Status: COMPLETED Source: [place] 12:00 AM [facility] REPOSITORY HNO ID: [id number] Author: Gallito Charles Service: Orthopaedic Surgery Author Type: Physician Type: Operative Report Filed: 09/21/2018 7:06 AM Note Text: [facility] - Operative Report ASHOK SAUCEDA : 1975 AGE: 42. SEX: F PATIENT TYPE: A HOSP SVC: OROR LOCATION: [facility] ATTENDING PHYSICIAN: Gallito Charles MD CSN NUMBER: [id number] DATE OF SURGERY/PROCEDURE: 09/17/2018 Surgery/Procedure Date: 09/17/2018 Incision/Procedure Start Time: 8:01 AM Incision Close/Procedure End Time: 8:22 AM Surgeon(s)/Proceduralist(s) and Part Time Receptionist(s): Surgeon(s) and Role: * Gallito Charles - Primary * Miky Whyte - Resident - Assisting School Inspector: Michael Chan I was present for and performed or supervised all Critical portions of the procedure Gallito Charles MD PREOPERATIVE DIAGNOSIS: Osteochondritis dissecans, 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 POSTOPERATIVE DIAGNOSIS: 1. Osteonecrosis and loose bodies, left knee. 2. Lateral meniscus tear, left knee. SURGEON: Gallito Charles MD KILN CAR UNLOADER: Miky Whyte MD. SURGERY/PROCEDURE: Left knee arthroscopy debridement removal of loose bodies and partial lateral meniscectomy ANESTHESIA: General. 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 Her most recent problems are all related to symptomatology, which is mechanical in nature, very acute onset of pain and catching in her knee. Preoperative MRI had revealed significant arthrosis signal change within the lateral meniscus and evidence of possible loose bodies in her knee. In view of this, we opted to proceed with an arthroscopic evaluation, removal of any loose bodies that we could find, evaluating all the other structures and seeing if we could control some of her symptomatology. She understands that because of the extensive nature of her disease process that she may not be able to get the complete relief of her pain, may require a second procedure to somehow resurface the femoral condyle. Understanding all this, the risks and complications of surgery, the prognosis, and personnel involved with her care, we proceeded as outlined above. The [facility], so I admitted to the main hospital because of her medical condition, prepared for surgery, left leg marked. The patient was then given intravenous antibiotics and then eventually taken to the operating room for assessment and surgical procedure. DESCRIPTION OF PROCEDURE: After entering the OR, appropriate huddles and time-outs, the patient was given a general anesthetic, supine position. Left leg was prepped and draped in usual manner. Standard diagnostic arthroscopy through an anterolateral portal and medial portal for working instruments, knee insufflated, and diagnostic arthroscopy and surgery were as follows. 1. Patellofemoral joint intact. Suprapatellar pouch examined thoroughly. No evidence of any floating or loose bodies. Patellar and trochlear articular cartilage intact. 2. Medial compartment. Medial compartment was examined and medial meniscus was intact. No evidence of any articular cartilage damage and no loose bodies could be identified in the posteromedial aspect of the knee. 3. Intercondylar notch. Some synovitis in this area, the ligamentum, and fat pad resected so we could evaluate fully. No loose bodies were identified. We placed our scope posterior to the cruciate ligaments and we could not evaluate any loose fragments posterior to the PCL or in the posterolateral compartment of the knee. 4. Lateral compartment. Significant pathology within the lateral compartment. One could see that there was a large fragment of cartilage and bone missing from her lateral femoral condyle in its posterior extent, but full evaluation and searching for the large fragment not reveal any fragments of floating freely throughout the joint. There was an area of loose bone and cartilage, more anterior, still attached to the fragment, but catching and loose and we removed these in their entirety, so that there were no further loose bodies floating in the knee. More significantly, there was erosion that was occurring of the lateral meniscus as well as the tibial plateau. Tibial plateau was quite softened and there was some loose fibrillated cartilage, which was debrided and chondroplasty was performed. The lateral meniscus; however, there was a tear of the anterior horn of the lateral meniscus, which when probed one would get a flipping of the undersurface of the anterior horn of the lateral meniscus. Using a punch and shaver, anterior lateral meniscectomy was performed, so there were no further loose fragments. The loose bodies were removed. We then again searched thoroughly throughout the knee. The arthroscope was placed in the lateral gutter, down the popliteus hiatus. No loose bodies could be identified. We then went to the suprapatellar pouch, did not identify any loose bodies in either the suprapatellar pouch, medial gutter, posterior compartments of the knee or intercondylar notch region. We satisfied that we had removed the loose bodies and anterior horn lateral meniscus tear that might be causing her symptomatology. The knee was thoroughly irrigated, injected with Marcaine. Wounds were closed in usual manner. Bulky compressive dressing was applied. Pneumatic tourniquet deflated. The patient was taken to recovery room. ESTIMATED BLOOD LOSS: Minimal. COMPLICATIONS: None. SPECIMENS: None. IMPLANTS USED: None. POSTOPERATIVE PLANS: We will see if this helps resolve her symptomatology. If she continues to have pain related to the lateral compartment of her knee, we may have to give some consideration to form of partial resurfacing or reconstruction of the lateral compartment, specifically the lateral femoral condyle of her knee. Gallito Charles MD AM:[id number] /[id number] cc: PROGRESS Observed: 09/16/2018 Status: COMPLETED Source: [place] 6:19 PM [facility] REPOSITORY HNO ID: [id number] Author: Akiko Grossman (Trudy) Kennedy Service: (none) Author Type: Nurse Practitioner Type: Progress Notes Filed: 09/16/2018 6:20 PM Note Text: Spoke to TM, pharmacist at [facility] Reviewed case, calculated creatinine clearance to 42 Confirmed 2 gm Ancef 1 time dose preop Akiko Benavides, SMILEY.TRUDY TACROLIMUS / [id number] Collected: 09/16/2018 Status: F Source: [place] 9:30 AM [facility] REPOSITORY TYPE CODE TESTS RESULT OUT OF REFERENCE UNITS RANGE LAB FK506 5.0-20.0 ng/mL Low Tacrolimus / 3.7 FK506 Result Comment: These reference ranges are provided as a general recommendation. Individualized target levels for a given patient will depend on many factors (including the type of organ transplant, ti me since transplantation, concurrent medications, and other clinical factors), and should be assessed by those health care providers experienced in the management of immunosuppression. Reference ranges and high/low indicator flags are provided as general guidelines only. The treating physician must determine appropriate target levels/dosing based on the specific clinical situation. Test performed by chemiluminescent immunoassay using famPlus. Performed By: #### FK506 #### [facility] [address] [place], [place] [address] [facility] Observed: 09/16/2018 Status: COMPLETED Source: [place] 12:00 AM [facility] REPOSITORY Patient Update (MMPRAD) ASHOK SAUCEDA ([id number]) 1975 F KDR Date Time Provider Department 09/16/18 AKIKO BNEAVIDES) RUI During your visit today, we recorded the following information about you: Akiko Benavides APRN.CNP 09/16/2018 6:20 PM Signed Spoke to TM, pharmacist at [facility] Reviewed case, calculated creatinine clearance to 42 Confirmed 2 gm Ancef 1 time dose preop Akiko Benavides APRN.CNP Allergies As of Date: 09/16/2018 Noted Allergy Reaction SULFA (SULFONAMIDE ANTIBIOTICS) 10/16/2005 1 - Mental Status Change Date Reviewed: 09/16/2018 Reviewed by: Akiko Benavides - Fully Assessed Prescriptions as of 09/16/2018 Sig: FUROSEMIDE 20 MG TABLET TAKE 1 TABLET NEEDED FOR E* TACROLIMUS 1 MG CAPSULE TAKE 2 MG IN THE AM, 2MG IN T* CARVEDILOL 12.5 MG TABLET Take 1 tablet by mouth twice * AMLODIPINE 5 MG TABLET TAKE 1 TABLET DAILY MYCOPHENOLATE MOFETIL 250 MG * TAKE 2 CAPSULES BY MOUTH TWIC* SIMVASTATIN 20 MG TABLET TAKE 1 TABLET DAILY FAMOTIDINE 20 MG TABLET TAKE 2 TABLETS TWICE A DAY LEVOTHYROXINE 50 MCG TABLET TAKE 1 TABLET DAILY PREDNISONE 10 MG TABLET TAKE DIRECTED ARANESP INJECTION by INJECTION(UNSPECIFIED PARE* SODIUM CHLORIDE 0.9% FLUSH Access implanted vascular acc* HEPARIN, PORCINE (PF) 100 UNI* Access implanted vascular acc* AMOXICILLIN 500 MG TABLET Take four (4) tablets one ricky* ALLOPURINOL 100 MG TABLET Take 2 tablets by mouth once * SODIUM CHLORIDE 0.9% FLUSH Access implanted vascular acc* HEPARIN LOCK FLUSH (PORCINE) * Access implanted vascular acc* BIOTIN 10,000 MCG CAPSULE Take 1 capsule by mouth once * ACETAMINOPHEN 500 MG TABLET Take 1,000 mg by mouth every * HEPARIN LOCK FLUSH (PORCINE) * NURSING USE ONLY: USE FOR I* SODIUM CHLORIDE 0.9% FLUSH NURSING USE ONLY: USED FOR * FERROUS SULFATE 325 MG (65 MG* Take 1 tablet by mouth twice * Problem List As Of Date 09/16/2018 Noted Resolved End stage renal disease [N18.6] INVALID FOR*09/28/2013 Nephritis and nephropathy, not specified as acu*INVALID FOR*09/01/2018 Systemic lupus erythematosus [M32.9] Priority: Mild More... DIABETES MELLITUS TYPE II-UNCOMPL [E11.9] More... Legionnaires' disease [A48.1] 09/28/2013 More... MALIG SATISH ADNEXA NEC [C57.4] More... Acquired hemolytic anemia, unspecified [D59.9] More... Thrombocytopenia, unspecified [D69.6] More... 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 Cough [R05] 09/28/2013 More... Cystitis [595] 09/01/2018 More... Kidney replaced by transplant [Z94.0] INVALID FOR* Priority: A More... Unspecified disease of white blood cells [D72.9]INVALID FOR*01/13/2011 Anemia, unspecified [D64.9] INVALID FOR*11/21/2011 Neutropenia, unspecified [D70.9] INVALID FOR* Need for prophylactic immunotherapy [Z29.8] INVALID FOR*09/28/2013 Anemia in chronic renal disease [N18.9, D63.1] INVALID FOR* More... Urinary tract infection, E. coli [N39.0, B96.20]INVALID FOR*09/28/2013 UTI (urinary tract infection) [N39.0] INVALID FOR*09/28/2013 Post-dural puncture headache [G97.1] INVALID FOR*09/28/2013 End stage renal disease (HCC) [N18.6] INVALID FOR* SUMMARY [V999.95] INVALID FOR*09/01/2018 Priority: Very Severe More... Primary hypertension [I10] INVALID FOR* Priority: B More... Mixed hyperlipidemia [E78.2] INVALID FOR* Priority: C More... UTI (lower urinary tract infection) [N39.0] INVALID FOR*02/28/2015 Priority: Severe More... Flu-like symptoms [R68.89] INVALID FOR*02/28/2015 Priority: Moderate More... DVT prophylaxis [[id number]] INVALID FOR*02/28/2015 Priority: D More... Loose body in knee [M23.40] INVALID FOR* More... Osteonecrosis (HCC) [M87.9] INVALID FOR* More... Personal history of DVT (deep vein thrombosis) *INVALID FOR* Renal transplant recipient [Z94.0] INVALID FOR* Encounter Status:Closed by AKIKO BENAVIDES CNP on 09/16/18 NURSING PROG Observed: 09/09/2018 Status: COMPLETED Source: [place] 1:16 PM [facility] REPOSITORY O ID: [id number] Author: Nataliia (Rn) JOSH Sanchez Service: (none) Author Type: Registered Nurse Type: Nursing Progress Note Filed: 09/09/2018 1:25 PM Note Text: PACC Nurse Progress Note History AND Physical: PACC Visit Date: 08/30/18 Original HANDP Date: N/A ED visit Date: N/A Outside HANDP Scanned Date: N/A Labs Within Last 6 Months: CBC: Date 08/30/18 - within acceptable limits per anesthesia guidelines for planned procedure. Imaging Within Last 12 Months: See chart Cardiac Testing: EKG in last 12 Months: 08/30/18 - within acceptable limits per anesthesia guidelines for planned procedure. Last Menstrual Period: LMP Date: Patient is not currently having periods (Reason: Unknown). Postmenopausal >1yr: N/A, S/P Hysterectomy: N/A BMI Percentile (PEDS): N/A Risk Assessment: -Difficult IV/Vein Access: yes but now has right chest wall port Vascular 09/07/18 - as noted in epic: Impression Jael 42 year old female with PMH of SLE, ESRD s/p renal transplant x 2, HTN, HLD, hypothyroidism, anemia/leukopenia, and AVN planned for left knee arthroscopy on 09/17/18. Referred to for perioperative recommendations re: history of line-related left IJ thrombus diagnosed around 2007 (noted to be chronic on duplex in 2009). Treated with a short course of Coumadin. No other history of VTE. Recommendations: 1. Remote line-related left IJ thrombosis _Treated with short course of Coumadin _Chronic on imaging in 2009 -Recommend pharmacomechanical VTE prophylaxis perioperatively including: _Heparin 5000 units BID while admitted _Ted hose/IPCs _Early ambulation, adequate hydration -Signs and symptoms of acute DVT/PE discussed and to seek treatment immediately if these should occur Follow up PRN Clarissa Leonard DO Anesthesia Review: N/A Narrative: Lupus AOCD-HANDH (10.531.9)-Aranesp prn Right chest port H/o carotid clot (2007)-vascular consult per ortho ESRD s/p kidney transplant (2006 AND 2011) on transplant meds (Cr 1.58/GFR 36) Pre-op Considerations: Mult notes throughout this encounter... Chart Check: COMPLETED Nataliia Sanchez RN September 09, 2018 1:16 PM [facility] Observed: 09/07/2018 Status: COMPLETED Source: [place] 2:45 PM [facility] REPOSITORY Office Visit (PERVMN) ASHOK SAUCEDA ([id number]) 1975 F KDR Date Time Provider Department 09/07/18 2:45 PM CLARISSA LEONARD During your visit today, we recorded the following information about you: Pulse Blood pressure Weight Height 74/minute 111/75 59.6 kg 1.6 m Clarissa Leonard DO 09/07/2018 3:50 PM Signed [facility] [place] [facility] Department of Cardiovascular Medicine SECTION OF VASCULAR MEDICINE OUTPATIENT VISIT DATE September 07, 2018 OUTPATIENT VISIT TYPE CONSULTATION Consult regarding: History of DVT, perioperative recommendations Consult requested by: Gallito Charles My final recommendations will be communicated back to the requesting physician by way of the shared medical record or by letter. Primary care physician: Enrique Cardoso MD History of present illness: Ms. Sauceda is a 42 year old female with PMH of SLE, ESRD s/p renal transplant x 2, HTN, HLD, hypothyroidism, anemia/leukopenia, and left knee AVN planned for arthroscopic surgery on 09/17/18. Referred to for perioperative recommendations re: history of DVT. Per patient, she was scheduled to undergo right chest Mediport placement around 2007. Prior to procedure, she had upper extremity venous duplex at [facility] (reports and images not available) that revealed ?chronic left internal jugular vein thrombosis. She reports multiple hospitalizations and lines around that time. Believes she was treated with Coumadin for a short period of time. No other history of VTE. She has been tested for lupus anticoagulant in the past - negative/normal. Allergies: is allergic to sulfa (sulfonamide antibiotics). Medications: furosemide (LASIX) 20 mg tablet TAKE 1 TABLET NEEDED FOR EDEMA tacrolimus (PROGRAF) 1 mg capsule TAKE 2 MG IN THE AM, 2MG IN THE PM ON 12 HOUR SCHEDULE. ICD-10: Z94.0 carvedilol (COREG) 12.5 mg tablet Take 1 tablet by mouth twice daily. amLODIPine (NORVASC) 5 mg tablet TAKE 1 TABLET DAILY mycophenolate mofetil (CELLCEPT) 250 mg capsule TAKE 2 CAPSULES BY MOUTH TWICE DAILY. Z94.0 simvastatin (ZOCOR) 20 mg tablet TAKE 1 TABLET DAILY famotidine (PEPCID) 20 mg tablet TAKE 2 TABLETS TWICE A DAY levothyroxine (SYNTHROID) 50 mcg tablet TAKE 1 TABLET DAILY predniSONE (DELTASONE) 10 mg tablet TAKE DIRECTED DARBEPOETIN MARY KAY IN ALBUMN ODELL (ARANESP INJECTION) by INJECTION(UNSPECIFIED PARENTERAL ROUTES) route. 0.9 % SODIUM CHLORIDE (0.9% NACL) Access implanted vascular access device (IVAD) as needed for flush, blood draw or treatment.Flush IVAD with 10-20 mL NS every 4 weeks and PRN when IVAD not in use. heparin 100 unit/mL injection Access implanted vascular access device (IVAD) as needed for flush, blood draw or treatment. Before de-accessing port, flush with 10-20ml normal saline and follow with 5 mL heparin (100 units/mL) (if no heparin allergy). De-access port on treatment completion. Amoxicillin 500 mg tablet Take four (4) tablets one hour before dental procedure. allopurinol (ZYLOPRIM) 100 mg tablet Take 2 tablets by mouth once daily. 0.9% NaCl Access implanted vascular access device (IVAD) as needed for flush, blood draw or treatment.Flush IVAD with 10-20 mL NS every 4 weeks and PRN when IVAD not in use. heparin 100 unit/mL syrg Access implanted vascular access device (IVAD) as needed for flush, blood draw or treatment. Before de-accessing port, flush with 10-20ml normal saline and follow with 5 mL heparin (100 units/mL) (if no heparin allergy). De-access port on treatment completion. Biotin 10,000 mcg cap Take 1 capsule by mouth once daily. acetaminophen (TYLENOL) 500 mg tablet Take 1,000 mg by mouth every 6 hours as needed. heparin 100 unit/mL syrg NURSING USE ONLY: USE FOR IVAD ACCESS FLUSH. AMBULATORY/OUTPATINET: PLEASE REORDER UPON HOSPITAL DISCHARGEMay access implanted vascular access device (IVAD) as needed for treatment. Before de-accessing port, flush with 10-20ml normal saline and follow with 5 mL heparin (100 units/mL) (if no heparin allergy). 0.9% NaCl NURSING USE ONLY: USED FOR IVAD ACCESS. AMBULATORY/OUTPATIENT: PLEASE REORDER UPON HOSPITAL DISCHARGE May access implanted vascular access device (IVAD) as needed for treatment.Flush IVAD with 10-20 mL NS every 4 weeks and PRN when IVAD not in use. Ferrous Sulfate (IRON) 325 mg (65 mg iron) tablet Take 1 tablet by mouth twice daily. Past medical history: has a past medical history of Acquired hemolytic anemia, unspecified (); Acute rejection of kidney transplant (2006); Corpus luteum cyst or hematoma; Cough; Cystitis; Fracture; Hyperlipidemia (02/22/2015); Legionnaires' disease (HCC) (1996); Malignant neoplasm of other specified sites of uterine adnexa (2001); Nephritis and nephropathy, not specified as acute or chronic, with other specified pathological lesion in kidney, in diseases classified elsewhere (1996); Systemic lupus erythematosus (HCC) (1996); Thrombocytopenia, unspecified (); Type II or unspecified type diabetes mellitus without mention of complication, not stated as uncontrolled; Unspecified hypertensive heart and kidney disease without heart failure and with chronic kidney disease stage V or end stage renal disease(404.92); and Unspecified hypothyroidism. She also has no past medical history of Asthma; Bleeding ulcer; Bowel disease; Chronic obstructive pulmonary disease (COPD) ([facility]); Chronic renal insufficiency; Congestive heart failure (HCC); Myocardial infarct, old; Peripheral vascular disease (HCC); Personal history of unspecified urinary disorder; Seizures ([facility]); or Stroke ([facility]). Past surgical history: has a past surgical history that includes past surgical history of; transplant kidney w/wo dop (12/31/2006); past surgical history of (2002, 2002); past surgical history of (2005); past surgical history of (2005); and past surgical history of (01/05/2012). Family history: family history includes Diabetes in her father; Hypertension in her father and mother; Ischemic Heart Disease in her father; Stroke in her father. Social history: reports that she has never smoked. She has never used smokeless tobacco. She reports that she does not drink alcohol or use drugs. REVIEW OF SYSTEMS: General Fever or chills - No Night sweats - No Change in weight - No Lumps in groin, underarms - No Neurological Headaches - No Seizures - No Passing out - No Dizziness/light headedness - No Numbness, tingling, pins or needles - No Weakness in arms or legs - No Head, eyes, ears, nose and throat Changes in hearing - No Changes in vision - No Nose bleeds - No Difficulty or pain with swallowing - No Cardiovascular Chest pain or pressure - No Palpitations - No Irregular heartbeat - No Shortness of breath - No Respiratory Cough - No Wheezing - No Shortness of breath at rest - No Shortness of breath with exertion - No Coughing up blood - No Sleep apnea - No Gastrointestinal Abdominal pain - No Nausea/vomiting - No Diarrhea/Constipation - No Stomach pain after eating - No Blood in stool - No Black stool - No Genitourinary Pain with urination - No Blood in urine - No Erectile dysfunction - N/A Abnormal vaginal bleeding - No History of loss - YES Extremity Bulging veins - No Swelling in arms or legs - No Redness of extremities - No Pain with walking - No Color change of hands/feet/digits - No Musculoskeletal Joint pain - No Joint swelling - No Back pain - No Muscle pain or ache - YES Skin Rash - No Lesions - No Slow healing sores - No Tight or thickened skin - No Hematology Low blood counts - YES Easy bruising - YES Blood transfusions - YES Psychology Depressed mood - No Anxiety or history of panic attacks - No History of recreational drug use - No Cancer screening (up to date?): Colonoscopy: No Pap smear: YES Mammogram: YES Smoking history: -Current or past smoker? No -If current smoker, are you interested in help with quitting? N/A Physical exam: BP 111/75 (BP Site: Left Arm, BP Position: Sitting, BP Cuff Size: Regular Adult) Pulse 74 Ht 160 cm (5' 3) Wt 59.6 kg (131 lb 8 oz) SpO2 96% BMI 23.29 kg/m? General: Alert and oriented, in no acute distress, pleasant mood. HEENT: Head normocephalic, sclera anicteric without injection, oral mucosa moist and pink. Cardiovascular: Heart has a regular rate and rhythm without murmur. Respiratory: Lungs clear auscultation bilaterally. Musculoskeletal: No cyanosis or clubbing. Peripheral vascular: Radial pulses 2+/2 bilaterally. Upper extremities: No edema. No dilated/enlraged veins. Lower extremities: No edema. Imaging DVT US 01/10/10: RIGHT SIDE Negative for acute deep vein thrombosis. Unable to visualize the cephalic vein . Right arteriovenous fistula is noted in the proximal upper arm. ? LEFT SIDE Negative for acute deep vein thrombosis. Unable to visualize the basilic vein . Remote deep vein thrombosis in the internal jugular vein . Sluggish flow is noted in the mid segment of the subclavian vein. Monophasic flow noted in all vessels-can not exclude a more proximal thrombosis. DVT US 12/02/07: Dialysis graft noted in the right upper arm. RIGHT SIDE: Negative study for acute deep vein thrombosis. LEFT SIDE: Negative study for acute deep vein thrombosis. Labs Component Latest Ref Rng AND Units 09/01/2018 09/01/2018 9:42 AM 10:19 AM WBC 3.70 - 11.00 k/uL 3.15 (L) RBC 3.90 - 5.20 m/uL 3.59 (L) Hemoglobin 11.5 - 15.5 g/dL 10.8 (L) Hematocrit 36.0 - 46.0 % 33.3 (L) MCV 80.0 - 100.0 fL 92.8 MCH 26.0 - 34.0 pG 30.1 MCHC 30.5 - 36.0 g/dL 32.4 RDW-CV 11.5 - 15.0 % 12.5 Platelet Count 150 - 400 k/uL 171 MPV 9.0 - 12.7 fL 10.5 Neut% % 44.5 Abs Neut (ANC) 1.45 - 7.50 k/uL 1.39 (L) Lymph% % 42.5 Abs Lymph 1.00 - 4.00 k/uL 1.34 [place]% % 11.7 Abs [place] <0.87 k/uL 0.37 Eosin% % 1.3 Abs Eosin <0.46 k/uL 0.04 Baso% % 0.0 Abs Baso <0.11 k/uL <0.03 Nucleated Reds 0 /100 WBC 0.0 Absolute nRBC <0.01 k/uL <0.01 Diff Type Auto Diff Albumin 3.9 - 4.9 g/dL 4.8 4.7 Calcium 8.5 - 10.2 mg/dL 10.1 Phosphorus 2.7 - 4.8 mg/dL 3.3 Glucose 74 - 99 mg/dL 79 BUN 7 - 21 mg/dL 28 (H) Creatinine 0.58 - 0.96 mg/dL 1.59 (H) Sodium 136 - 144 mmol/L 141 Potassium 3.7 - 5.1 mmol/L 4.3 Chloride 97 - 105 mmol/L 105 CO2 22 - 30 mmol/L 22 Anion Gap 9 - 18 mmol/L 14 eGFR- 43 eGFR-All Other Races . 35 Bilirubin, Total 0.2 - 1.3 mg/dL 0.4 Bilirubin, Conjug <0.2 mg/dL <0.2 Alkaline Phosphatase 34 - 123 U/L 71 AST 13 - 35 U/L 12 (L) ALT 7 - 38 U/L 8 Protein, Total 6.3 - 8.0 g/dL 6.8 Impression Jael 42 year old female with PMH of SLE, ESRD s/p renal transplant x 2, HTN, HLD, hypothyroidism, anemia/leukopenia, and AVN planned for left knee arthroscopy on 09/17/18. Referred to for perioperative recommendations re: history of line-related left IJ thrombus diagnosed around 2007 (noted to be chronic on duplex in 2009). Treated with a short course of Coumadin. No other history of VTE. Recommendations: 1. Remote line-related left IJ thrombosis _Treated with short course of Coumadin _Chronic on imaging in 2009 -Recommend pharmacomechanical VTE prophylaxis perioperatively including: _Heparin 5000 units BID while admitted _Ted hose/IPCs _Early ambulation, adequate hydration -Signs and symptoms of acute DVT/PE discussed and to seek treatment immediately if these should occur Follow up DO Clarissa Partida DO 09/07/2018 3:07 PM Signed -May have heparin injections twice a day if admitted -Early ambulation, stay hydrated -Thomas chiu Referring Provider: GALLITO CHARLES [[id number]] Allergies As of Date: 09/07/2018 Noted Allergy Reaction SULFA (SULFONAMIDE ANTIBIOTICS) 10/16/2005 1 - Mental Status Change Date Reviewed: 09/07/2018 Reviewed by: Clarissa Leonard - Fully Assessed Reason for Visit: Consult [502] Primary Visit Diagnosis:Personal history of DVT (deep vein thrombosis) [Z86.718] Other Visit Diagnoses:Systemic lupus erythematosus with glomerular disease, unspecified SLE type (HCC) [M32.14] Renal transplant recipient [Z94.0] Primary hypertension [I10] Mixed hyperlipidemia [E78.2] Avascular necrosis (HCC) [M87.00] Preoperative examination [Z01.818] Prescriptions as of 09/07/2018 Sig: FUROSEMIDE 20 MG TABLET TAKE 1 TABLET NEEDED FOR E* TACROLIMUS 1 MG CAPSULE TAKE 2 MG IN THE AM, 2MG IN T* CARVEDILOL 12.5 MG TABLET Take 1 tablet by mouth twice * AMLODIPINE 5 MG TABLET TAKE 1 TABLET DAILY MYCOPHENOLATE MOFETIL 250 MG * TAKE 2 CAPSULES BY MOUTH TWIC* SIMVASTATIN 20 MG TABLET TAKE 1 TABLET DAILY FAMOTIDINE 20 MG TABLET TAKE 2 TABLETS TWICE A DAY LEVOTHYROXINE 50 MCG TABLET TAKE 1 TABLET DAILY PREDNISONE 10 MG TABLET TAKE DIRECTED ARANESP INJECTION by INJECTION(UNSPECIFIED PARE* SODIUM CHLORIDE 0.9% FLUSH Access implanted vascular acc* HEPARIN, PORCINE (PF) 100 UNI* Access implanted vascular acc* AMOXICILLIN 500 MG TABLET Take four (4) tablets one ricky* ALLOPURINOL 100 MG TABLET Take 2 tablets by mouth once * SODIUM CHLORIDE 0.9% FLUSH Access implanted vascular acc* HEPARIN LOCK FLUSH (PORCINE) * Access implanted vascular acc* BIOTIN 10,000 MCG CAPSULE Take 1 capsule by mouth once * ACETAMINOPHEN 500 MG TABLET Take 1,000 mg by mouth every * HEPARIN LOCK FLUSH (PORCINE) * NURSING USE ONLY: USE FOR I* SODIUM CHLORIDE 0.9% FLUSH NURSING USE ONLY: USED FOR * FERROUS SULFATE 325 MG (65 MG* Take 1 tablet by mouth twice * Problem List As Of Date 09/07/2018 Noted Resolved End stage renal disease [N18.6] INVALID FOR*09/28/2013 Nephritis and nephropathy, not specified as acu*INVALID FOR*09/01/2018 Systemic lupus erythematosus [M32.9] Priority: Mild More... DIABETES MELLITUS TYPE II-UNCOMPL [E11.9] More... Legionnaires' disease [A48.1] 09/28/2013 More... MALIG SATISH ADNEXA NEC [C57.4] More... Acquired hemolytic anemia, unspecified [D59.9] More... Thrombocytopenia, unspecified [D69.6] More... 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 Cough [R05] 09/28/2013 More... Cystitis [595] 09/01/2018 More... Kidney replaced by transplant [Z94.0] INVALID FOR* Priority: A More... Unspecified disease of white blood cells [D72.9]INVALID FOR*01/13/2011 Anemia, unspecified [D64.9] INVALID FOR*11/21/2011 Neutropenia, unspecified [D70.9] INVALID FOR* Need for prophylactic immunotherapy [Z29.8] INVALID FOR*09/28/2013 Anemia in chronic renal disease [N18.9, D63.1] INVALID FOR* More... Urinary tract infection, E. coli [N39.0, B96.20]INVALID FOR*09/28/2013 UTI (urinary tract infection) [N39.0] INVALID FOR*09/28/2013 Post-dural puncture headache [G97.1] INVALID FOR*09/28/2013 End stage renal disease (HCC) [N18.6] INVALID FOR* SUMMARY [V999.95] INVALID FOR*09/01/2018 Priority: Very Severe More... Primary hypertension [I10] INVALID FOR* Priority: B More... Mixed hyperlipidemia [E78.2] INVALID FOR* Priority: C More... UTI (lower urinary tract infection) [N39.0] INVALID FOR*02/28/2015 Priority: Severe More... Flu-like symptoms [R68.89] INVALID FOR*02/28/2015 Priority: Moderate More... DVT prophylaxis [DFQ4845] INVALID FOR*02/28/2015 Priority: D More... Loose body in knee [M23.40] INVALID FOR* More... Osteonecrosis (HCC) [M87.9] INVALID FOR* More... Personal history of DVT (deep vein thrombosis) *INVALID FOR* Renal transplant recipient [Z94.0] INVALID FOR* Other instructions from your clinician: -May have heparin injections twice a day if admitted -Early ambulation, stay hydrated -Thomas hose Disposition: Return if symptoms worsen or fail to improve. Follow-up and Disposition History Recorded Encounter Status:Closed by CLARISSA LEONARD DO on 09/07/18 PROGRESS Observed: 09/07/2018 Status: COMPLETED Source: [place] 11:26 AM [facility] REPOSITORY [facility] ID: [id number] Author: Clarissa Leonard Service: (none) Author Type: Physician Type: Progress Notes Filed: 09/07/2018 3:50 PM Note Text: [facility] [place] [facility] Department of Cardiovascular Medicine SECTION OF VASCULAR MEDICINE OUTPATIENT VISIT DATE September 07, 2018 OUTPATIENT VISIT TYPE CONSULTATION Consult regarding: History of DVT, perioperative recommendations Consult requested by: Gallito Charles My final recommendations will be communicated back to the requesting physician by way of the shared medical record or by letter. Primary care physician: Enrique Cardoso MD History of present illness: Ms. Sauceda is a 42 year old female with PMH of SLE, ESRD s/p renal transplant x 2, HTN, HLD, hypothyroidism, anemia/leukopenia, and left knee AVN planned for arthroscopic surgery on 09/17/18. Referred to for perioperative recommendations re: history of DVT. Per patient, she was scheduled to undergo right chest Mediport placement around 2007. Prior to procedure, she had upper extremity venous duplex at [facility] (reports and images not available) that revealed ?chronic left internal jugular vein thrombosis. She reports multiple hospitalizations and lines around that time. Believes she was treated with Coumadin for a short period of time. No other history of VTE. She has been tested for lupus anticoagulant in the past - negative/normal. Allergies: is allergic to sulfa (sulfonamide antibiotics). Medications: furosemide (LASIX) 20 mg tablet TAKE 1 TABLET NEEDED FOR EDEMA tacrolimus (PROGRAF) 1 mg capsule TAKE 2 MG IN THE AM, 2MG IN THE PM ON 12 HOUR SCHEDULE. ICD-10: Z94.0 carvedilol (COREG) 12.5 mg tablet Take 1 tablet by mouth twice daily. amLODIPine (NORVASC) 5 mg tablet TAKE 1 TABLET DAILY mycophenolate mofetil (CELLCEPT) 250 mg capsule TAKE 2 CAPSULES BY MOUTH TWICE DAILY. Z94.0 simvastatin (ZOCOR) 20 mg tablet TAKE 1 TABLET DAILY famotidine (PEPCID) 20 mg tablet TAKE 2 TABLETS TWICE A DAY levothyroxine (SYNTHROID) 50 mcg tablet TAKE 1 TABLET DAILY predniSONE (DELTASONE) 10 mg tablet TAKE DIRECTED DARBEPOETIN MARY KAY IN ALBUMN ODELL (ARANESP INJECTION) by INJECTION(UNSPECIFIED PARENTERAL ROUTES) route. 0.9 % SODIUM CHLORIDE (0.9% NACL) Access implanted vascular access device (IVAD) as needed for flush, blood draw or treatment.Flush IVAD with 10-20 mL NS every 4 weeks and PRN when IVAD not in use. heparin 100 unit/mL injection Access implanted vascular access device (IVAD) as needed for flush, blood draw or treatment. Before de-accessing port, flush with 10-20ml normal saline and follow with 5 mL heparin (100 units/mL) (if no heparin allergy). De-access port on treatment completion. Amoxicillin 500 mg tablet Take four (4) tablets one hour before dental procedure. allopurinol (ZYLOPRIM) 100 mg tablet Take 2 tablets by mouth once daily. 0.9% NaCl Access implanted vascular access device (IVAD) as needed for flush, blood draw or treatment.Flush IVAD with 10-20 mL NS every 4 weeks and PRN when IVAD not in use. heparin 100 unit/mL syrg Access implanted vascular access device (IVAD) as needed for flush, blood draw or treatment. Before de-accessing port, flush with 10-20ml normal saline and follow with 5 mL heparin (100 units/mL) (if no heparin allergy). De-access port on treatment completion. Biotin 10,000 mcg cap Take 1 capsule by mouth once daily. acetaminophen (TYLENOL) 500 mg tablet Take 1,000 mg by mouth every 6 hours as needed. heparin 100 unit/mL syrg NURSING USE ONLY: USE FOR IVAD ACCESS FLUSH. AMBULATORY/OUTPATINET: PLEASE REORDER UPON HOSPITAL DISCHARGEMay access implanted vascular access device (IVAD) as needed for treatment. Before de-accessing port, flush with 10-20ml normal saline and follow with 5 mL heparin (100 units/mL) (if no heparin allergy). 0.9% NaCl NURSING USE ONLY: USED FOR IVAD ACCESS. AMBULATORY/OUTPATIENT: PLEASE REORDER UPON HOSPITAL DISCHARGE May access implanted vascular access device (IVAD) as needed for treatment.Flush IVAD with 10-20 mL NS every 4 weeks and PRN when IVAD not in use. Ferrous Sulfate (IRON) 325 mg (65 mg iron) tablet Take 1 tablet by mouth twice daily. Past medical history: has a past medical history of Acquired hemolytic anemia, unspecified ([facility]); Acute rejection of kidney transplant (2006); Corpus luteum cyst or hematoma; Cough; Cystitis; Fracture; Hyperlipidemia (02/22/2015); Legionnaires' disease ([facility]) (1996); Malignant neoplasm of other specified sites of uterine adnexa (2001); Nephritis and nephropathy, not specified as acute or chronic, with other specified pathological lesion in kidney, in diseases classified elsewhere (1996); Systemic lupus erythematosus (HCC) (1996); Thrombocytopenia, unspecified (); Type II or unspecified type diabetes mellitus without mention of complication, not stated as uncontrolled; Unspecified hypertensive heart and kidney disease without heart failure and with chronic kidney disease stage V or end stage renal disease(404.92); and Unspecified hypothyroidism. She also has no past medical history of Asthma; Bleeding ulcer; Bowel disease; Chronic obstructive pulmonary disease (COPD) ([facility]); Chronic renal insufficiency; Congestive heart failure ([facility]); Myocardial infarct, old; Peripheral vascular disease ([facility]); Personal history of unspecified urinary disorder; Seizures ([facility]); or Stroke ([facility]). Past surgical history: has a past surgical history that includes past surgical history of; transplant kidney w/wo dop (12/31/2006); past surgical history of (2002, 2002); past surgical history of (2005); past surgical history of (2005); and past surgical history of (01/05/2012). Family history: family history includes Diabetes in her father; Hypertension in her father and mother; Ischemic Heart Disease in her father; Stroke in her father. Social history: reports that she has never smoked. She has never used smokeless tobacco. She reports that she does not drink alcohol or use drugs. REVIEW OF SYSTEMS: General Fever or chills - No Night sweats - No Change in weight - No Lumps in groin, underarms - No Neurological Headaches - No Seizures - No Passing out - No Dizziness/light headedness - No Numbness, tingling, pins or needles - No Weakness in arms or legs - No Head, eyes, ears, nose and throat Changes in hearing - No Changes in vision - No Nose bleeds - No Difficulty or pain with swallowing - No Cardiovascular Chest pain or pressure - No Palpitations - No Irregular heartbeat - No Shortness of breath - No Respiratory Cough - No Wheezing - No Shortness of breath at rest - No Shortness of breath with exertion - No Coughing up blood - No Sleep apnea - No Gastrointestinal Abdominal pain - No Nausea/vomiting - No Diarrhea/Constipation - No Stomach pain after eating - No Blood in stool - No Black stool - No Genitourinary Pain with urination - No Blood in urine - No Erectile dysfunction - N/A Abnormal vaginal bleeding - No History of loss - YES Extremity Bulging veins - No Swelling in arms or legs - No Redness of extremities - No Pain with walking - No Color change of hands/feet/digits - No Musculoskeletal Joint pain - No Joint swelling - No Back pain - No Muscle pain or ache - YES Skin Rash - No Lesions - No Slow healing sores - No Tight or thickened skin - No Hematology Low blood counts - YES Easy bruising - YES Blood transfusions - YES Psychology Depressed mood - No Anxiety or history of panic attacks - No History of recreational drug use - No Cancer screening (up to date?): Colonoscopy: No Pap smear: YES Mammogram: YES Smoking history: -Current or past smoker? No -If current smoker, are you interested in help with quitting? N/A Physical exam: BP 111/75 (BP Site: Left Arm, BP Position: Sitting, BP Cuff Size: Regular Adult) Pulse 74 Ht 160 cm (5' 3) Wt 59.6 kg (131 lb 8 oz) SpO2 96% BMI 23.29 kg/m? General: Alert and oriented, in no acute distress, pleasant mood. HEENT: Head normocephalic, sclera anicteric without injection, oral mucosa moist and pink. Cardiovascular: Heart has a regular rate and rhythm without murmur. Respiratory: Lungs clear auscultation bilaterally. Musculoskeletal: No cyanosis or clubbing. Peripheral vascular: Radial pulses 2+/2 bilaterally. Upper extremities: No edema. No dilated/enlraged veins. Lower extremities: No edema. Imaging DVT US 01/10/10: RIGHT SIDE Negative for acute deep vein thrombosis. Unable to visualize the cephalic vein . Right arteriovenous fistula is noted in the proximal upper arm. ? LEFT SIDE Negative for acute deep vein thrombosis. Unable to visualize the basilic vein . Remote deep vein thrombosis in the internal jugular vein . Sluggish flow is noted in the mid segment of the subclavian vein. Monophasic flow noted in all vessels-can not exclude a more proximal thrombosis. DVT US 12/02/07: Dialysis graft noted in the right upper arm. RIGHT SIDE: Negative study for acute deep vein thrombosis. LEFT SIDE: Negative study for acute deep vein thrombosis. Labs Component Latest Ref Rng AND Units 09/01/2018 09/01/2018 9:42 AM 10:19 AM WBC 3.70 - 11.00 k/uL 3.15 (L) RBC 3.90 - 5.20 m/uL 3.59 (L) Hemoglobin 11.5 - 15.5 g/dL 10.8 (L) Hematocrit 36.0 - 46.0 % 33.3 (L) MCV 80.0 - 100.0 fL 92.8 MCH 26.0 - 34.0 pG 30.1 MCHC 30.5 - 36.0 g/dL 32.4 RDW-CV 11.5 - 15.0 % 12.5 Platelet Count 150 - 400 k/uL 171 MPV 9.0 - 12.7 fL 10.5 Neut% % 44.5 Abs Neut (ANC) 1.45 - 7.50 k/uL 1.39 (L) Lymph% % 42.5 Abs Lymph 1.00 - 4.00 k/uL 1.34 [place]% % 11.7 Abs [place] <0.87 k/uL 0.37 Eosin% % 1.3 Abs Eosin <0.46 k/uL 0.04 Baso% % 0.0 Abs Baso <0.11 k/uL <0.03 Nucleated Reds 0 /100 WBC 0.0 Absolute nRBC <0.01 k/uL <0.01 Diff Type Auto Diff Albumin 3.9 - 4.9 g/dL 4.8 4.7 Calcium 8.5 - 10.2 mg/dL 10.1 Phosphorus 2.7 - 4.8 mg/dL 3.3 Glucose 74 - 99 mg/dL 79 BUN 7 - 21 mg/dL 28 (H) Creatinine 0.58 - 0.96 mg/dL 1.59 (H) Sodium 136 - 144 mmol/L 141 Potassium 3.7 - 5.1 mmol/L 4.3 Chloride 97 - 105 mmol/L 105 CO2 22 - 30 mmol/L 22 Anion Gap 9 - 18 mmol/L 14 eGFR- 43 eGFR-All Other Races . 35 Bilirubin, Total 0.2 - 1.3 mg/dL 0.4 Bilirubin, Conjug <0.2 mg/dL <0.2 Alkaline Phosphatase 34 - 123 U/L 71 AST 13 - 35 U/L 12 (L) ALT 7 - 38 U/L 8 Protein, Total 6.3 - 8.0 g/dL 6.8 Impression Jael 42 year old female with PMH of SLE, ESRD s/p renal transplant x 2, HTN, HLD, hypothyroidism, anemia/leukopenia, and AVN planned for left knee arthroscopy on 09/17/18. Referred to for perioperative recommendations re: history of line-related left IJ thrombus diagnosed around 2007 (noted to be chronic on duplex in 2009). Treated with a short course of Coumadin. No other history of VTE. Recommendations: 1. Remote line-related left IJ thrombosis _Treated with short course of Coumadin _Chronic on imaging in 2009 -Recommend pharmacomechanical VTE prophylaxis perioperatively including: _Heparin 5000 units BID while admitted _Ted hose/IPCs _Early ambulation, adequate hydration -Signs and symptoms of acute DVT/PE discussed and to seek treatment immediately if these should occur Follow up SAMARA Leonard DO HEPATIC FUNCTN PANEL Collected: 09/01/2018 Status: F Source: [place] 10:19 AM [facility] REPOSITORY TYPE CODE TESTS RESULT OUT OF REFERENCE UNITS RANGE LAB ALB 3.9-4.9 g/dL Albumin 4.7 LAB TBIL 0.2-1.3 mg/dL Bilirubin, Total 0.4 LAB CBIL <0.2 mg/dL Bilirubin,Conjuga <0.2 thomas LAB ALKP 34-123 U/L Alkaline Phosphatase 71 LAB AST 13-35 U/L Low AST 12 LAB ALT 7-38 U/L ALT 8 LAB TP 6.3-8.0 g/dL Protein, Total 6.8 CBC AND DIFFERENTIAL Collected: 09/01/2018 Status: F Source: [place] 9:42 AM [facility] REPOSITORY TYPE CODE TESTS RESULT OUT OF REFERENCE UNITS RANGE LAB WBC 3.70-11.00 k/uL Low WBC 3.15 LAB RBC 3.90-5.20 m/uL Low RBC 3.59 LAB HGB 11.5-15.5 g/dL Low Hemoglobin 10.8 LAB HCT 36.0-46.0 % Low Hematocrit 33.3 LAB MCV 80.0-100.0 fL MCV 92.8 LAB MCH 26.0-34.0 pG MCH 30.1 LAB MCHC 30.5-36.0 g/dL MCHC 32.4 LAB RDWCV 11.5-15.0 % RDW-CV 12.5 LAB PLTCT 150-400 k/uL Platelet Count 171 LAB MPV 9.0-12.7 fL MPV 10.5 LAB ANEUT % Neut% 44.5 LAB AANEUT 1.45-7.50 k/uL Low Abs Neut 1.39 LAB ALYMP % Lymph% 42.5 LAB AALYMP 1.00-4.00 k/uL Abs Lymph 1.34 LAB AMONO % [place]% 11.7 LAB AAMONO <0.87 k/uL Abs [place] 0.37 LAB AEOS % Eosin% 1.3 LAB AAEOS <0.46 k/uL Abs Eosin 0.04 LAB ABASO % Baso% 0.0 LAB AABASO <0.11 k/uL Abs Baso <0.03 LAB AUNRBC 0 /100 WBC NRBCs 0.0 LAB ABNRBC <0.01 k/uL Absolute nRBC <0.01 LAB DTYP DTYPE Auto Diff Performed By: #### CBCDIF, RFP, PTHI, VITD #### [facility] [address] [place], [place] [address] RENAL FUNCTION PANEL Collected: 09/01/2018 Status: F Source: [place] 9:42 AM [facility] REPOSITORY TYPE CODE TESTS RESULT OUT OF REFERENCE UNITS RANGE LAB ALB 3.9-4.9 g/dL Albumin 4.8 LAB CA 8.5-10.2 mg/dL Calcium, Total 10.1 LAB PHOS 2.7-4.8 mg/dL Phosphorus 3.3 LAB GLU 74-99 mg/dL Glucose 79 Result Comment: The [place] [employer] (ADA) provides guidance for cutoff values for fasting glucose and random glucose. The ADA defines fasting as no caloric intake for at least 8 hours. Fas ting plasma glucose results between 100 to 125 mg/dL indicate increased risk for diabetes (prediabetes). Fasting plasma glucose results greater than or equal to 126 mg/dL meet the criteria for diagnosis of diabetes. In the absence of unequivocal hyperglycemia, results should be confirmed by repeat testing. In a patient with classic symptoms of hyperglycemia or hyperglycemic crisis, random plasma glucose results greater than or equal to 200 mg/dL meet the criteria for diagnosis of diabetes. Reference: Standards of Medical Care in Diabetes 2016, [place] [employer]. Diabetes Care. 2016.39(Suppl 1). LAB BUN 7-21 mg/dL BUN High 28 LAB CRET 0.58-0.96 mg/dL Creatinine High 1.59 LAB NA 136-144 mmol/L Sodium 141 LAB K 3.7-5.1 mmol/L Potassium 4.3 LAB CL 97-105 mmol/L Chloride 105 LAB CO2 22-30 mmol/L CO2 22 LAB AGAP 9-18 mmol/L Anion Gap 14 LAB GFRAA eGFR- Amer. 43 LAB GFRNAA . eGFR-All Other Races 35 Result Comment: eGFR (Estimated GFR) Units of measure: mL/min/1.73 meters squared eGFR is derived from the reexpressed MDRD Study equation using the following parameters: serum creatinine, age, gender and race. The creatinine assay has been calibrated to be traceable to IDMS. An eGFR <60 mL/min/1.73m2 for >3 months is consistent with chronic kidney disease. Refer to KDOQI guidelines for clinical interpretation. In patients with unstable renal function, e.g. those with acute kidney injury, the eGFR may not accurately reflect actual GFR. Performed By: #### CBCDIF, RFP, PTHI, VITD #### [facility] [address] [id number] PTH, INTACT Collected: 09/01/2018 Status: F Source: [place] 9:42 AM [facility] REPOSITORY TYPE CODE TESTS RESULT OUT OF REFERENCE UNITS RANGE LAB PTH 15-65 pg/mL High PTH, Intact 69 Performed By: #### CBCDIF, RFP, PTHI, VITD #### [facility] [address] [place], [place] [id number] VITAMIN D 25 HYDROXY Collected: 09/01/2018 Status: F Source: [place] 9:42 AM [facility] REPOSITORY TYPE CODE TESTS RESULT OUT OF REFERENCE UNITS RANGE LAB VITD 31.0-80.0 ng/mL Vitamin D 25 36.8 Hydroxy Result Comment: Classification of 25 [place] Vitamin D status: Insufficiency/Moderate Deficiency: < or = 30 ng/mL Sufficiency/Optimal Levels: 31 to 80 ng/mL Toxicity: > 100 ng/mL Test performed by chemiluminescent immunoassay. Performed By: #### CBCDIF, RFP, PTHI, VITD #### [facility] [address] [place] [address] TACROLIMUS / FK506 Collected: 09/01/2018 Status: F Source: [place] 9:42 [facility] REPOSITORY TYPE CODE TESTS RESULT OUT OF REFERENCE UNITS RANGE LAB FK506 5.0-20.0 ng/mL Low Tacrolimus / 4.7 FK506 Result Comment: These reference ranges are provided as a general recommendation. Individualized target levels for a given patient will depend on many factors (including the type of organ transplant, ti me since transplantation, concurrent medications, and other clinical factors), and should be assessed by those health care providers experienced in the management of immunosuppression. Reference ranges and high/low indicator flags are provided as general guidelines only. The treating physician must determine appropriate target levels/dosing based on the specific clinical situation. Test performed by chemiluminescent immunoassay using famPlus. Performed By: #### [id number] #### [facility] [address] [id number] DLUCE ABS GR + CBC Collected: 09/01/2018 Status: F Source: [place] 9:35 AM [facility] REPOSITORY TYPE CODE TESTS RESULT OUT OF REFERENCE UNITS RANGE LAB WWBC 3.70-11.00 k/uL Low [place] WBC 3.29 LAB WRBC 3.90-5.20 m/uL Low [place] RBC 3.55 LAB WHGB 11.5-15.5 g/dL Low [place] Hemoglobin 10.6 LAB WHCT 36.0-46.0 % Low [place] Hematocrit 32.7 LAB WMCV 80.0-100.0 fL [place] MCV 92.1 LAB WMCH 26.0-34.0 pg [place] MCH 29.9 LAB WMCHC 30.5-36.0 g/dL [place] MCHC 32.4 LAB WRDW 11.5-15.0 % [place] RDW 12.9 LAB WPLT 150-400 k/uL [place] Platelet Cnt 159 LAB WMPV 9.0-12.7 fL [place] MPV 9.8 Result Comment: Test performed at: [facility], [address] [place] [address] Rd[address] [place] [address]. LAB ABGRAN 1.45-7.50 k/uL Low Absol 1.34 Gran Count ECG COMPLETE W Observed: 08/30/2018 Status: F Source: [place] INTERPRETATION 10:10 AM [facility] REPOSITORY NAME : ASHOK SAUCEDA PID : [id number] : 1975 Gender : Female Race : ORD : [id number] Procedure Date : Aug 30 2018 10:10:14 Edit Date : Sep 02 2018 08:00:02 Diagnosis:SINUS BRADYCARDIA LOW VOLTAGE QRS, CONSIDER PULMONARY DISEASE, PERICARDIAL EFFUSION, OR NORMAL VARIANT BORDERLINE ECG Confirmed by SARAH GALE D.O. ([id number]) on 09/02/2018 7:59:46 AM Ventricular Rate : 59 BPM Atrial Rate : 59 BPM P-R Interval : 150 ms QRS Duration : 80 ms Q-T Interval : 400 ms QTC Calculation(Bezet) : 396 ms P [place] : 37 degrees R [place] : 62 degrees T [place] : 41 degrees Test Reason : pre op Location : 189 : [facility]ASC Overread By : SARAH GALE D.O. Edited By : SARAH GALE D.O. Referred By : FAUZIA CABAN Acquired by : jpr, HISTORY PHYSICAL Observed: 08/30/2018 Status: COMPLETED Source: [place] 10:03 AM [facility] REPOSITORY HNO ID: [id number] Author: Fauzia Caban (Pa) Service: (none) Author Type: Physician Part Time Receptionist Type: HANDP Filed: 09/02/2018 9:40 AM Note Text: HISTORY AND PHYSICAL EXAMINATION SERVICE DATE: 08/30/2018 SERVICE TIME: 10:04 AM PRIMARY CARE PHYSICIAN: Enrique Cardoso MD REASON FOR VISIT: Ashok Sauceda is a 42 year old female who is scheduled for left knee arthroscopy, debridement and chondroplasty at the request of Dr. Gallito Charles for consultation. My final recommendation will be communicated back to the requesting physician by way of shared medical record or letter. The patient has the following: ACTIVE PROBLEM LIST Nephritis and Nephropathy, Not Specified As Acute Or Chronic, With Other Specified Pathological Lesion in Kidney, in Diseases Classified Elsewhere Systemic lupus erythematosus Type II Or Unspecified Type Diabetes Mellitus Without Mention of Complication, Not Stated As Uncontrolled Malignant Neoplasm of Other Specified Sites of Uterine Adnexa Acquired Hemolytic Anemia, Unspecified (Hcc) Thrombocytopenia, Unspecified (Hcc) Unspecified Hypertensive Heart and Kidney Disease Without Heart Failure and With Chronic Kidney Disease Stage V Or End Stage Renal Disease(404.92) Corpus Luteum Cyst Or Hematoma Cystitis Kidney Replaced By Transplant Neutropenia, Unspecified (Hcc) Anemia in Chronic Renal Disease End Stage Renal Disease (Hcc) Summary Hypertension Hyperlipidemia Loose Body in Knee Osteonecrosis (Hcc) Subjective CHIEF COMPLAINT: left knee locking HPI: Ashok Sauceda is a 42 year old female that presents c/o a 2-3 year history of left knee pain and locking that has worsened with time. 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 States she twisted her knee in her kitchen a few years ago and has had issues since. Pain is only present when knee locks. Previous treatment includes bracing with minimal relief. Scheduled for left knee arthroscopy, debridement and chondroplasty on 09/07. Denies recent illness, fever or chills. 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 - Corpus luteum cyst or hematoma left ovary mass laparascopically biopsied 2002; benign corpus luteum - Cough jeanna induced - Cystitis x1 summer 2004 (presented with fever) - Fracture Childhood, L arm; states she 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 - Hyperlipidemia 02/22/2015 - Legionnaires' disease (HCC) 1996 during SLE flare, serum antigen +, but urine antigen negative; treated anyway - Malignant neoplasm of other specified sites of uterine adnexa 2001 open resection right ovary; suspicious lymphadenopathy and PET results led to lap node sampling end 2001 with negative results; no chemo/XRT; no PET or CT scans for awhile - Nephritis and nephropathy, not specified as acute or chronic, with other specified pathological lesion in kidney, in diseases classified elsewhere 1996 nephrotic/nephritic, biopsy Class III treated wt steroids; biopsy 1997 Class Vb; ? Class IV (received CTX); 2000 and 2001 (? 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; quiescent - Type II or unspecified type diabetes mellitus without mention of complication, not stated as uncontrolled steroid induced; also had probably steroid psychosis with high dose - Unspecified hypertensive heart and kidney disease without heart failure and with chronic kidney disease stage V or end stage renal disease(404.92) - Unspecified hypothyroidism PAST SURGICAL HISTORY Procedure Laterality Date - PAST SURGICAL HISTORY OF right oophorectomy, left ovarian biopsy; multiple kidney biopsies; paraaortic and axillary lymph node sampling - PAST SURGICAL HISTORY OF 2002, 2002 lymph node biopsies - PAST SURGICAL HISTORY OF 2005 peritoneal dialysis cath placement - PAST SURGICAL HISTORY OF 2005 AVF, AV graft - PAST SURGICAL HISTORY OF 01/05/2012 Kidney transplant - TRANSPLANT KIDNEY W/WO DOP 12/31/2006 FAMILY HISTORY Problem Relation Age of Onset - Hypertension Mother - Hypertension Father - Diabetes Father - Ischemic Heart Disease Father - Stroke Father SOCIAL HISTORY: Social History Marital status: Spouse name: Kumar Years of education: 14 Number of children: 1 Occupational History 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 Yes amLODIPine (NORVASC) 5 mg tablet TAKE 1 TABLET DAILY Yes mycophenolate mofetil (CELLCEPT) 250 mg capsule TAKE 2 CAPSULES BY MOUTH TWICE DAILY. Z94.0 Yes simvastatin (ZOCOR) 20 mg tablet TAKE 1 TABLET DAILY Yes tacrolimus (PROGRAF) 1 mg capsule TAKE 2 MG IN THE AM, 1MG IN THE PM ON 12 HOUR SCHEDULE. ICD-10: Z94.0 Yes famotidine (PEPCID) 20 mg tablet TAKE 2 TABLETS TWICE A DAY Yes levothyroxine (SYNTHROID) 50 mcg tablet TAKE 1 TABLET DAILY Yes predniSONE (DELTASONE) 10 mg tablet TAKE DIRECTED Yes DARBEPOETIN MARY KAY IN ALBUMN ODELL (ARANESP INJECTION) by INJECTION(UNSPECIFIED PARENTERAL ROUTES) route. Yes furosemide (LASIX) 20 mg tablet TAKE 1 TABLET NEEDED FOR EDEMA Yes 0.9 % SODIUM CHLORIDE (0.9% NACL) Access implanted vascular access device (IVAD) as needed for flush, blood draw or treatment. Flush IVAD with 10-20 mL NS every 4 weeks and PRN when IVAD not in use. Yes heparin 100 unit/mL injection Access implanted vascular access device (IVAD) as needed for flush, blood draw or treatment. Before de-accessing port, flush with 10-20ml normal saline and follow with 5 mL heparin (100 units/mL) (if no heparin allergy). De-access port on treatment completion. Yes Amoxicillin 500 mg tablet Take four (4) tablets one hour before dental procedure. Yes allopurinol (ZYLOPRIM) 100 mg tablet Take 2 tablets by mouth once daily. Yes Biotin 10,000 mcg cap Take 1 capsule by mouth once daily. Yes acetaminophen (TYLENOL) 500 mg tablet Take 1,000 mg by mouth every 6 hours as needed. Yes Ferrous Sulfate (IRON) 325 mg (65 mg iron) tablet Take 1 tablet by mouth twice daily. Yes 0.9% NaCl Access implanted vascular access device (IVAD) as needed for flush, blood draw or treatment. Flush IVAD with 10-20 mL NS every 4 weeks and PRN when IVAD not in use. heparin 100 unit/mL syrg Access implanted vascular access device (IVAD) as needed for flush, blood draw or treatment. Before de-accessing port, flush with 10-20ml normal saline and follow with 5 mL heparin (100 units/mL) (if no heparin allergy). De-access port on treatment completion. heparin 100 unit/mL syrg NURSING USE ONLY: USE FOR IVAD ACCESS FLUSH. AMBULATORY/OUTPATINET: PLEASE REORDER UPON HOSPITAL DISCHARGE May access implanted vascular access device (IVAD) as needed for treatment. Before de-accessing port, flush with 10-20ml normal saline and follow with 5 mL heparin (100 units/mL) (if no heparin allergy). 0.9% NaCl NURSING USE ONLY: USED FOR IVAD ACCESS. AMBULATORY/OUTPATIENT: PLEASE REORDER UPON HOSPITAL DISCHARGE May access implanted vascular access device (IVAD) as needed for treatment. Flush IVAD with 10-20 mL NS every 4 weeks and PRN when IVAD not in use. No medication comments found. ALLERGIES Allergen Reactions - Sulfa (Sulfonamide * Mental Status Change REVIEW OF SYSTEMS: PAIN ASSESSMENT: General: No weight loss, malaise or fevers. 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 No neurological symptoms or problems. Respiratory: No history of current cough or dyspnea, or pneumonia in the past 6 weeks. No history of respiratory/pulmonary symptoms or problems. Cardiovascular: HTN-treated; HLD-statin; states she had clot in her carotid 10 yrs ago-was told by surgeon's office that they will set up vascular consult. Negative for chest pain, orthopnea, PND, dizziness, lightheadedness or syncope. Negative for heart murmur. Negative for palpitations or arrhythmia. Negative for LE edema. No NH or heart surgery. GI: GERD-Pepcid; No PUD or liver disease. Occasional ETOH use. : kidney transplant 2006 AND 2011 on transplant meds followed by Dr. Nguyen; No dysuria or hematuria. 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 : Denies, No LMP recorded. Patient is not currently having periods (Reason: Unknown). Endocrine: Hypothyroid-treated; Prednisone daily; No DM. Hematology: h/o clot in carotid 10 yrs ago; h/o Thrombocytopenia; AOCD (HANDH 10.5/31.9 on 07/28/18) No clotting d/o. Oncology: h/o ovarian cyst s/p lap bx 2002 (benign corpus luteum) Psych: No history of psychiatric symptoms or problems. Musculoskeletal: Negative for joint pain or swelling, back pain or muscle pain. Skin: Negative for lesions, rash and itching. Objective PHYSICAL EXAM: VITALS: BP 148/98 Pulse 68 Temp (Src) 98.1 (Temporal Artery) Ht 5' 3 (1.60m) Wt 133 lb 9.6 oz (60.6kg) SpO2 99% BMI 23.67 kg/(m2). General: Alert and oriented, No acute distress, Healthy appearance Skin: Normal color, no rash, no lesions. HEENT: EOM, pupils equal, round and reactive., No carotid bruits Cardiovascular: Normal S1 AND S2, no rubs, murmurs or gallops. No JVD. Pulse regular. Lungs: Normal breath sounds, no wheezes or crackles., No chest deformities or chest wall tenderness. Abdomen: Soft, non-tender, no rigidity., No masses or organomegaly. Extremities: No deformity, no edema or tenderness, no joint swelling or clubbing. Neurological: Normal cognition and motor skills. Gait normal. No weakness or sensory deficit. Pulses: Carotid and radial pulses normal +2. Diagnostic tests reviewed for today's visit: Lab Value Units Date High Low HB 10.5 g/dL 07/28/2018 15.5 11.5 HCT 31.9 % 07/28/2018 46.0 36.0 WBC 3.77 k/uL 07/28/2018 11.00 3.70 PLT 164 k/uL 07/28/2018 400 150 NA 137 mmol/L 08/18/2018 144 136 K 4.0 mmol/L 08/18/2018 5.1 3.7 GLUC 87 mg/dL 08/18/2018 99 74 BUN 29 mg/dL 08/18/2018 21 7 CREAT 1.58 mg/dL 08/18/2018 0.96 0.58 PTSEC No results within date range. INR No results within date range. APTT No results within date range. ALT 14 U/L 08/18/2018 38 7 AST 23 U/L 08/18/2018 35 13 TBILI 0.3 mg/dL 08/18/2018 1.3 0.2 TSH No results within date range. Lab Value Units Date High Low HCGQT No results within date range. UHCG No results within date range. HCG, BODY* No results within date range. Lab Value Units Date High Low ABORHD No results within date range. ABSCREEN No results within date range. 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 All in Epic Assessment ASSESSMENT Patient has the following medical conditions ESRD s/p kidney transplant (2006 AND 2011) on transplant meds (Cr 1.58/GFR 36) Lupus AOCD-HANDH (10.5/31.9)-Aranesp prn Right chest port H/o carotid clot (2007)-vascular consult per ortho HTN-RX HLD-RX GERD-RX Hypothyroid-RX METS: Climb a flight of stairs or walk up a hill (5.50 METs) Do heavy work around the house, such as scrubbing floors, lifting or moving heavy furniture (8.00 METs) Patient denies any chest pain or undue shortness of breath with the above physical activity. ASA Class: 3 ANESTHESIA FINDINGS: Intubation History: No history of difficult intubation Significant Anesthesia Considerations: None and Difficult IV/Vein Access: yes but now has right chest wall port Airway Exam: General: Normal appearance Mallampati Score is CLASS II ULBT: Class I - Lower incisors can bite the upper lip above the clif line Neck: Normal appearance and function, Distance from hyoid to mentum during neck extension is at least 3 finger breaths Mouth: Normal tongue size and Mouth opening greater than 2 finger breaths Dentition: Intact Airway History: No history of difficult intubation STOP BANG Score: Criteria: Hypertension Score = 1 PLAN This patient is optimally prepared for surgery pending EKG. CONSULTS: Patient does not require consults for optimization at this time. The Following Tests/Procedures Have Been Initiated: Orders Placed This Encounter EKG Planned Anesthetic: General Instructions Given to Patient: Patient given verbal and written preop instructions and voices comprehension and compliance. SIGNATURE: Fauzia Caban PA-C PATIENT NAME: Ashok Sauceda DATE: August 30, 2018 TIME: 10:03 AM PAGER/CONTACT #: [id number] Observed: 08/30/2018 Status: COMPLETED Source: [place] 12:00 AM [facility] REPOSITORY Patient Update (SPHTB) ASHOK SAUCEDA ([id number]) 1975 F KDR Date Time Provider Department 08/30/18 AKIKO BENAVIDES ([facility]) [facility] During your visit today, we recorded the following information about you: Allergies As of Date: 08/30/2018 Noted Allergy Reaction SULFA (SULFONAMIDE ANTIBIOTICS) 10/16/2005 1 - Mental Status Change Date Reviewed: 08/30/2018 Reviewed by: Fauzia Caban (Pa) - Fully Assessed Primary Visit Diagnosis:Loose body of left knee [M23.42] Order(s):SURGICAL REQUEST - ELECTIVE [[id number]] Order #: [id number]: 1 Prescriptions as of 08/30/2018 Sig: CARVEDILOL 12.5 MG TABLET Take 1 tablet by mouth twice * AMLODIPINE 5 MG TABLET TAKE 1 TABLET DAILY MYCOPHENOLATE MOFETIL 250 MG * TAKE 2 CAPSULES BY MOUTH TWIC* SIMVASTATIN 20 MG TABLET TAKE 1 TABLET DAILY TACROLIMUS 1 MG CAPSULE TAKE 2 MG IN THE AM, 1MG IN T* FAMOTIDINE 20 MG TABLET TAKE 2 TABLETS TWICE A DAY LEVOTHYROXINE 50 MCG TABLET TAKE 1 TABLET DAILY PREDNISONE 10 MG TABLET TAKE DIRECTED ARANESP INJECTION by INJECTION(UNSPECIFIED PARE* FUROSEMIDE 20 MG TABLET TAKE 1 TABLET NEEDED FOR E* SODIUM CHLORIDE 0.9% FLUSH Access implanted vascular acc* HEPARIN, PORCINE (PF) 100 UNI* Access implanted vascular acc* AMOXICILLIN 500 MG TABLET Take four (4) tablets one ricky* ALLOPURINOL 100 MG TABLET Take 2 tablets by mouth once * SODIUM CHLORIDE 0.9% FLUSH Access implanted vascular acc* HEPARIN LOCK FLUSH (PORCINE) * Access implanted vascular acc* BIOTIN 10,000 MCG CAPSULE Take 1 capsule by mouth once * ACETAMINOPHEN 500 MG TABLET Take 1,000 mg by mouth every * HEPARIN LOCK FLUSH (PORCINE) * NURSING USE ONLY: USE FOR I* SODIUM CHLORIDE 0.9% FLUSH NURSING USE ONLY: USED FOR * FERROUS SULFATE 325 MG (65 MG* Take 1 tablet by mouth twice * Problem List As Of Date 08/30/2018 Noted Resolved End stage renal disease [N18.6] INVALID FOR*09/28/2013 NEPHRITIS NOS IN OTHER DIS [N05.8] INVALID FOR* Systemic lupus erythematosus [M32.9] Priority: Mild More... DIABETES MELLITUS TYPE II-UNCOMPL [E11.9] More... Legionnaires' disease [A48.1] 09/28/2013 More... MALIG SATISH ADNEXA NEC [C57.4] More... Acquired hemolytic anemia, unspecified [D59.9] More... Thrombocytopenia, unspecified [D69.6] More... 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 Cough [R05] 09/28/2013 More... CYSTITIS [595] More... Kidney replaced by transplant [Z94.0] INVALID FOR* Priority: A More... Unspecified disease of white blood cells [D72.9]INVALID FOR*01/13/2011 Anemia, unspecified [D64.9] INVALID FOR*11/21/2011 Neutropenia, unspecified [D70.9] INVALID FOR* Need for prophylactic immunotherapy [Z29.8] INVALID FOR*09/28/2013 Anemia in chronic renal disease [N18.9, D63.1] INVALID FOR* More... Urinary tract infection, E. 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 Hypertension [I10] INVALID FOR* Priority: B More... Hyperlipidemia [E78.5] INVALID FOR* Priority: C More... UTI (lower urinary tract infection) [N39.0] INVALID FOR*02/28/2015 Priority: Severe More... Flu-like symptoms [R68.89] INVALID FOR*02/28/2015 Priority: Moderate More... DVT prophylaxis [[id number]] INVALID FOR*02/28/2015 Priority: D More... Loose body in knee [M23.40] INVALID FOR* More... Osteonecrosis (HCC) [M87.9] INVALID FOR* More... Disposition: Return in about 3 weeks (around 09/20/2018) for please add onto [facility] clinic on thuOct 06, at 12;15p, 12;30 p, 12;45p then 9 wks later with M . Follow-up and Disposition History Recorded Encounter Status:Closed by AKIKO BENAVIDES CNP on 08/30/18 TACROLIMUS / FK506 Collected: 08/26/2018 Status: F Source: [place] 10:13 AM [facility] REPOSITORY TYPE CODE TESTS RESULT OUT OF REFERENCE UNITS RANGE LAB FK506 5.0-20.0 ng/mL Low Tacrolimus / 2.4 FK506 Result Comment: These reference ranges are provided as a general recommendation. Individualized target levels for a given patient will depend on many factors (including the type of organ transplant, ti me since transplantation, concurrent medications, and other clinical factors), and should be assessed by those health care providers experienced in the management of immunosuppression. Reference ranges and high/low indicator flags are provided as general guidelines only. The treating physician must determine appropriate target levels/dosing based on the specific clinical situation. Test performed by chemiluminescent immunoassay using famPlus. Performed By: #### [id number] #### [facility] [address] [place], [place] [address] HOSP Observed: 08/24/2018 Status: COMPLETED Source: [place] 12:00 AM [facility] REPOSITORY Patient:Ashok Sauceda MRN: <[id number]> Height:5' 3(1.6 m) Weight:131 lb 8 oz (59.648 kg) Outpatient Medications as of 09/17/18: furosemide (LASIX) 20 mg tablet tacrolimus (PROGRAF) 1 mg capsule carvedilol (COREG) 12.5 mg tablet amLODIPine (NORVASC) 5 mg tablet mycophenolate mofetil (CELLCEPT) 250 mg capsule simvastatin (ZOCOR) 20 mg tablet famotidine (PEPCID) 20 mg tablet levothyroxine (SYNTHROID) 50 mcg tablet predniSONE (DELTASONE) 10 mg tablet DARBEPOETIN MARY KAY IN ALBUMN ODELL (ARANESP INJECTION) 0.9 % SODIUM CHLORIDE (0.9% NACL) heparin 100 unit/mL injection Amoxicillin 500 mg tablet allopurinol (ZYLOPRIM) 100 mg tablet 0.9% NaCl heparin 100 unit/mL syrg Biotin 10,000 mcg cap acetaminophen (TYLENOL) 500 mg tablet heparin 100 unit/mL syrg 0.9% NaCl Ferrous Sulfate (IRON) 325 mg (65 mg iron) tablet Admission/Clinic Administered Medications as of 09/17/18: lactated ringers infusion ceFAZolin iv piggyback 2 g in D5W (iso-osmotic) 100 mL (ANCEF) acetaminophen 1,000 mg tab(s) (TYLENOL) Problem List: Systemic lupus erythematosus [M32.9] Type II or unspecified type diabetes mellitus without mention of complication, not stated as uncontrolled [E11.9] Malignant neoplasm of other specified sites of uterine adnexa [C57.4] Acquired hemolytic anemia, unspecified (HCC) [D59.9] Thrombocytopenia, unspecified (HCC) [D69.6] Unspecified hypertensive heart and kidney disease without heart failure and with chronic kidney disease stage V or end stage renal disease(404.92) [I13.11] Corpus luteum cyst or hematoma [N83.10] Kidney replaced by transplant [Z94.0] Neutropenia, unspecified (HCC) [D70.9] Anemia in chronic renal disease [N18.9, D63.1] End stage renal disease (HCC) [N18.6] Primary hypertension [I10] Mixed hyperlipidemia [E78.2] Loose body in knee [M23.40] Osteonecrosis (HCC) [M87.9] Personal history of DVT (deep vein thrombosis) [Z86.718] Renal transplant recipient [Z94.0] Allergies: Sulfa (Sulfonamide Antibiotics) Date Verified: 09/17/18 Lab Values Lab Value Units Date High Low POTA* 4.3 mmol/L 09/01/2018 5.1 3.7 MARLENA* 33.3 % 09/01/2018 46.0 36.0 Progress Notes (MM PROVIDER ADULT): Akiko Benavides APRN.CNP 09/16/2018 6:20 PM Signed Spoke to , pharmacist at [facility] Reviewed case, calculated creatinine clearance to 42 Confirmed 2 gm Ancef 1 time dose preop Akiko Benavides APRN.TRUDY Progress Notes ([facility]): Clarissa Leonard, 09/07/2018 3:50 PM Signed [facility] [facility] Department of Cardiovascular Medicine SECTION OF VASCULAR MEDICINE OUTPATIENT VISIT DATE September 07, 2018 OUTPATIENT VISIT TYPE CONSULTATION Consult regarding: History of DVT, perioperative recommendations Consult requested by: Gallito Charles My final recommendations will be communicated back to the requesting physician by way of the shared medical record or by letter. Primary care physician: Enrique Cardoso MD History of present illness: Ms. Sauceda is a 42 year old female with PMH of SLE, ESRD s/p renal transplant x 2, HTN, HLD, hypothyroidism, anemia/leukopenia, and left knee AVN planned for arthroscopic surgery on 09/17/18. Referred to for perioperative recommendations re: history of DVT. Per patient, she was scheduled to undergo right chest Mediport placement around 2007. Prior to procedure, she had upper extremity venous duplex at [facility] (reports and images not available) that revealed ?chronic left internal jugular vein thrombosis. She reports multiple hospitalizations and lines around that time. Believes she was treated with Coumadin for a short period of time. No other history of VTE. She has been tested for lupus anticoagulant in the past - negative/normal. Allergies: is allergic to sulfa (sulfonamide antibiotics). Medications: furosemide (LASIX) 20 mg tablet TAKE 1 TABLET NEEDED FOR EDEMA tacrolimus (PROGRAF) 1 mg capsule TAKE 2 MG IN THE AM, 2MG IN THE PM ON 12 HOUR SCHEDULE. ICD-10: Z94.0 carvedilol (COREG) 12.5 mg tablet Take 1 tablet by mouth twice daily. amLODIPine (NORVASC) 5 mg tablet TAKE 1 TABLET DAILY mycophenolate mofetil (CELLCEPT) 250 mg capsule TAKE 2 CAPSULES BY MOUTH TWICE DAILY. Z94.0 simvastatin (ZOCOR) 20 mg tablet TAKE 1 TABLET DAILY famotidine (PEPCID) 20 mg tablet TAKE 2 TABLETS TWICE A DAY levothyroxine (SYNTHROID) 50 mcg tablet TAKE 1 TABLET DAILY predniSONE (DELTASONE) 10 mg tablet TAKE DIRECTED DARBEPOETIN MARY KAY IN ALBUMN ODELL (ARANESP INJECTION) by INJECTION(UNSPECIFIED PARENTERAL ROUTES) route. 0.9 % SODIUM CHLORIDE (0.9% NACL) Access implanted vascular access device (IVAD) as needed for flush, blood draw or treatment.Flush IVAD with 10-20 mL NS every 4 weeks and PRN when IVAD not in use. heparin 100 unit/mL injection Access implanted vascular access device (IVAD) as needed for flush, blood draw or treatment. Before de-accessing port, flush with 10-20ml normal saline and follow with 5 mL heparin (100 units/mL) (if no heparin allergy). De-access port on treatment completion. Amoxicillin 500 mg tablet Take four (4) tablets one hour before dental procedure. allopurinol (ZYLOPRIM) 100 mg tablet Take 2 tablets by mouth once daily. 0.9% NaCl Access implanted vascular access device (IVAD) as needed for flush, blood draw or treatment.Flush IVAD with 10-20 mL NS every 4 weeks and PRN when IVAD not in use. heparin 100 unit/mL syrg Access implanted vascular access device (IVAD) as needed for flush, blood draw or treatment. Before de-accessing port, flush with 10-20ml normal saline and follow with 5 mL heparin (100 units/mL) (if no heparin allergy). De-access port on treatment completion. Biotin 10,000 mcg cap Take 1 capsule by mouth once daily. acetaminophen (TYLENOL) 500 mg tablet Take 1,000 mg by mouth every 6 hours as needed. heparin 100 unit/mL syrg NURSING USE ONLY: USE FOR IVAD ACCESS FLUSH. AMBULATORY/OUTPATINET: PLEASE REORDER UPON HOSPITAL DISCHARGEMay access implanted vascular access device (IVAD) as needed for treatment. Before de-accessing port, flush with 10-20ml normal saline and follow with 5 mL heparin (100 units/mL) (if no heparin allergy). 0.9% NaCl NURSING USE ONLY: USED FOR IVAD ACCESS. AMBULATORY/OUTPATIENT: PLEASE REORDER UPON HOSPITAL DISCHARGE May access implanted vascular access device (IVAD) as needed for treatment.Flush IVAD with 10-20 mL NS every 4 weeks and PRN when IVAD not in use. Ferrous Sulfate (IRON) 325 mg (65 mg iron) tablet Take 1 tablet by mouth twice daily. Past medical history: has a past medical history of Acquired hemolytic anemia, unspecified (); Acute rejection of kidney transplant (2006); Corpus luteum cyst or hematoma; Cough; Cystitis; Fracture; Hyperlipidemia (02/22/2015); Legionnaires' disease (HCC) (1996); Malignant neoplasm of other specified sites of uterine adnexa (2001); Nephritis and nephropathy, not specified as acute or chronic, with other specified pathological lesion in kidney, in diseases classified elsewhere (1996); Systemic lupus erythematosus (HCC) (1996); Thrombocytopenia, unspecified (); Type II or unspecified type diabetes mellitus without mention of complication, not stated as uncontrolled; Unspecified hypertensive heart and kidney disease without heart failure and with chronic kidney disease stage V or end stage renal disease(404.92); and Unspecified hypothyroidism. She also has no past medical history of Asthma; Bleeding ulcer; Bowel disease; Chronic obstructive pulmonary disease (COPD) ([facility]); Chronic renal insufficiency; Congestive heart failure (HCC); Myocardial infarct, old; Peripheral vascular disease ([facility]); Personal history of unspecified urinary disorder; Seizures ([facility]); or Stroke ([facility]). Past surgical history: has a past surgical history that includes past surgical history of; transplant kidney w/wo dop (12/31/2006); past surgical history of (2002, 2002); past surgical history of (2005); past surgical history of (2005); and past surgical history of (01/05/2012). Family history: family history includes Diabetes in her father; Hypertension in her father and mother; Ischemic Heart Disease in her father; Stroke in her father. Social history: reports that she has never smoked. She has never used smokeless tobacco. She reports that she does not drink alcohol or use drugs. REVIEW OF SYSTEMS: General Fever or chills - No Night sweats - No Change in weight - No Lumps in groin, underarms - No Neurological Headaches - No Seizures - No Passing out - No Dizziness/light headedness - No Numbness, tingling, pins or needles - No Weakness in arms or legs - No Head, eyes, ears, nose and throat Changes in hearing - No Changes in vision - No Nose bleeds - No Difficulty or pain with swallowing - No Cardiovascular Chest pain or pressure - No Palpitations - No Irregular heartbeat - No Shortness of breath - No Respiratory Cough - No Wheezing - No Shortness of breath at rest - No Shortness of breath with exertion - No Coughing up blood - No Sleep apnea - No Gastrointestinal Abdominal pain - No Nausea/vomiting - No Diarrhea/Constipation - No Stomach pain after eating - No Blood in stool - No Black stool - No Genitourinary Pain with urination - No Blood in urine - No Erectile dysfunction - N/A Abnormal vaginal bleeding - No History of loss - YES Extremity Bulging veins - No Swelling in arms or legs - No Redness of extremities - No Pain with walking - No Color change of hands/feet/digits - No Musculoskeletal Joint pain - No Joint swelling - No Back pain - No Muscle pain or ache - YES Skin Rash - No Lesions - No Slow healing sores - No Tight or thickened skin - No Hematology Low blood counts - YES Easy bruising - YES Blood transfusions - YES Psychology Depressed mood - No Anxiety or history of panic attacks - No History of recreational drug use - No Cancer screening (up to date?): Colonoscopy: No Pap smear: YES Mammogram: YES Smoking history: -Current or past smoker? No -If current smoker, are you interested in help with quitting? N/A Physical exam: BP 111/75 (BP Site: Left Arm, BP Position: Sitting, BP Cuff Size: Regular Adult) Pulse 74 Ht 160 cm (5' 3) Wt 59.6 kg (131 lb 8 oz) SpO2 96% BMI 23.29 kg/m? General: Alert and oriented, in no acute distress, pleasant mood. HEENT: Head normocephalic, sclera anicteric without injection, oral mucosa moist and pink. Cardiovascular: Heart has a regular rate and rhythm without murmur. Respiratory: Lungs clear auscultation bilaterally. Musculoskeletal: No cyanosis or clubbing. Peripheral vascular: Radial pulses 2+/2 bilaterally. Upper extremities: No edema. No dilated/enlraged veins. Lower extremities: No edema. Imaging DVT US 01/10/10: RIGHT SIDE Negative for acute deep vein thrombosis. Unable to visualize the cephalic vein . Right arteriovenous fistula is noted in the proximal upper arm. ? LEFT SIDE Negative for acute deep vein thrombosis. Unable to visualize the basilic vein . Remote deep vein thrombosis in the internal jugular vein . Sluggish flow is noted in the mid segment of the subclavian vein. Monophasic flow noted in all vessels-can not exclude a more proximal thrombosis. DVT US 12/02/07: Dialysis graft noted in the right upper arm. RIGHT SIDE: Negative study for acute deep vein thrombosis. LEFT SIDE: Negative study for acute deep vein thrombosis. Labs Component Latest Ref Rng AND Units 09/01/2018 09/01/2018 9:42 AM 10:19 AM WBC 3.70 - 11.00 k/uL 3.15 (L) RBC 3.90 - 5.20 m/uL 3.59 (L) Hemoglobin 11.5 - 15.5 g/dL 10.8 (L) Hematocrit 36.0 - 46.0 % 33.3 (L) MCV 80.0 - 100.0 fL 92.8 MCH 26.0 - 34.0 pG 30.1 MCHC 30.5 - 36.0 g/dL 32.4 RDW-CV 11.5 - 15.0 % 12.5 Platelet Count 150 - 400 k/uL 171 MPV 9.0 - 12.7 fL 10.5 Neut% % 44.5 Abs Neut (ANC) 1.45 - 7.50 k/uL 1.39 (L) Lymph% % 42.5 Abs Lymph 1.00 - 4.00 k/uL 1.34 [place]% % 11.7 Abs [place] <0.87 k/uL 0.37 Eosin% % 1.3 Abs Eosin <0.46 k/uL 0.04 Baso% % 0.0 Abs Baso <0.11 k/uL <0.03 Nucleated Reds 0 /100 WBC 0.0 Absolute nRBC <0.01 k/uL <0.01 Diff Type Auto Diff Albumin 3.9 - 4.9 g/dL 4.8 4.7 Calcium 8.5 - 10.2 mg/dL 10.1 Phosphorus 2.7 - 4.8 mg/dL 3.3 Glucose 74 - 99 mg/dL 79 BUN 7 - 21 mg/dL 28 (H) Creatinine 0.58 - 0.96 mg/dL 1.59 (H) Sodium 136 - 144 mmol/L 141 Potassium 3.7 - 5.1 mmol/L 4.3 Chloride 97 - 105 mmol/L 105 CO2 22 - 30 mmol/L 22 Anion Gap 9 - 18 mmol/L 14 eGFR- 43 eGFR-All Other Races . 35 Bilirubin, Total 0.2 - 1.3 mg/dL 0.4 Bilirubin, Conjug <0.2 mg/dL <0.2 Alkaline Phosphatase 34 - 123 U/L 71 AST 13 - 35 U/L 12 (L) ALT 7 - 38 U/L 8 Protein, Total 6.3 - 8.0 g/dL 6.8 Impression Jael 42 year old female with PMH of SLE, ESRD s/p renal transplant x 2, HTN, HLD, hypothyroidism, anemia/leukopenia, and AVN planned for left knee arthroscopy on 09/17/18. Referred to for perioperative recommendations re: history of line-related left IJ thrombus diagnosed around 2007 (noted to be chronic on duplex in 2009). Treated with a short course of Coumadin. No other history of VTE. Recommendations: 1. Remote line-related left IJ thrombosis _Treated with short course of Coumadin _Chronic on imaging in 2009 -Recommend pharmacomechanical VTE prophylaxis perioperatively including: _Heparin 5000 units BID while admitted _Ted hose/IPCs _Early ambulation, adequate hydration -Signs and symptoms of acute DVT/PE discussed and to seek treatment immediately if these should occur Follow up SAMARA Leonard DO Previous Version Clarissa Leonard DO 09/07/2018 3:07 PM Signed -May have heparin injections twice a day if admitted -Early ambulation, stay hydrated -Thomas hose HOSP Observed: 08/24/2018 Status: COMPLETED Source: [place] 12:00 AM [facility] REPOSITORY [facility] ASHOK SAUCEDA ([id number]) 1975 F KDR Date Time Provider Department 08/24/18 KENNEDY AKIKO GROSSMAN (INSIDE SALES COORDINATOR) [facility] During your visit today, we recorded the following information about you: Allergies As of Date: 08/24/2018 Noted Allergy Reaction SULFA (SULFONAMIDE ANTIBIOTICS) 10/16/2005 1 - Mental Status Change Date Reviewed: 08/18/2018 Reviewed by: Dyana Terrazas (Rn) JOSH Hussein - Fully Assessed Primary Visit Diagnosis:History of DVT (deep vein thrombosis) [Z86.718] Order(s):SURGICAL REQUEST - ELECTIVE [[id number]] Order #: [id number]: 1 CONSULT TO VASCULAR MEDICINE [[id number]] Order #: [id number]: 1 Prescriptions as of 08/24/2018 Sig: CARVEDILOL 12.5 MG TABLET Take 1 tablet by mouth twice * AMLODIPINE 5 MG TABLET TAKE 1 TABLET DAILY MYCOPHENOLATE MOFETIL 250 MG * TAKE 2 CAPSULES BY MOUTH TWIC* SIMVASTATIN 20 MG TABLET TAKE 1 TABLET DAILY TACROLIMUS 1 MG CAPSULE TAKE 2 MG IN THE AM, 1MG IN T* FAMOTIDINE 20 MG TABLET TAKE 2 TABLETS TWICE A DAY LEVOTHYROXINE 50 MCG TABLET TAKE 1 TABLET DAILY PREDNISONE 10 MG TABLET TAKE DIRECTED ARANESP INJECTION by INJECTION(UNSPECIFIED PARE* FUROSEMIDE 20 MG TABLET TAKE 1 TABLET NEEDED FOR E* SODIUM CHLORIDE 0.9% FLUSH Access implanted vascular acc* HEPARIN, PORCINE (PF) 100 UNI* Access implanted vascular acc* AMOXICILLIN 500 MG TABLET Take four (4) tablets one ricky* ALLOPURINOL 100 MG TABLET Take 2 tablets by mouth once * SODIUM CHLORIDE 0.9% FLUSH Access implanted vascular acc* HEPARIN LOCK FLUSH (PORCINE) * Access implanted vascular acc* BIOTIN 10,000 MCG CAPSULE Take 1 capsule by mouth once * ACETAMINOPHEN 500 MG TABLET Take 1,000 mg by mouth every * HEPARIN LOCK FLUSH (PORCINE) * NURSING USE ONLY: USE FOR I* SODIUM CHLORIDE 0.9% FLUSH NURSING USE ONLY: USED FOR * FERROUS SULFATE 325 MG (65 MG* Take 1 tablet by mouth twice * Problem List As Of Date 08/24/2018 Noted Resolved End stage renal disease [N18.6] INVALID FOR*09/28/2013 NEPHRITIS NOS IN OTHER DIS [N05.8] INVALID FOR* Systemic lupus erythematosus [M32.9] Priority: Mild More... DIABETES MELLITUS TYPE II-UNCOMPL [E11.9] More... Legionnaires' disease [A48.1] 09/28/2013 More... MALIG SATISH ADNEXA NEC [C57.4] More... Acquired hemolytic anemia, unspecified [D59.9] More... Thrombocytopenia, unspecified [D69.6] More... 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 Cough [R05] 09/28/2013 More... CYSTITIS [595] More... Kidney replaced by transplant [Z94.0] INVALID FOR* Priority: A More... Unspecified disease of white blood cells [D72.9]INVALID FOR*01/13/2011 Anemia, unspecified [D64.9] INVALID FOR*11/21/2011 Neutropenia, unspecified [D70.9] INVALID FOR* Need for prophylactic immunotherapy [Z29.8] INVALID FOR*09/28/2013 Anemia in chronic renal disease [N18.9, D63.1] INVALID FOR* More... Urinary tract infection, E. 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 Hypertension [I10] INVALID FOR* Priority: B More... Hyperlipidemia [E78.5] INVALID FOR* Priority: C More... UTI (lower urinary tract infection) [N39.0] INVALID FOR*02/28/2015 Priority: Severe More... Flu-like symptoms [R68.89] INVALID FOR*02/28/2015 Priority: Moderate More... DVT prophylaxis [[id number]] INVALID FOR*02/28/2015 Priority: D More... Loose body in knee [M23.40] INVALID FOR* More... Osteonecrosis (HCC) [M87.9] INVALID FOR* More... Disposition: Return in about 3 weeks (around 09/14/2018) for add on Sep 28 at 9 am with Kennedy at [facility] then [address] Charles. Follow-up and Disposition History Recorded Encounter Status:Closed by AKIKO BENAVIDES CNP on 08/24/18 HOSP Observed: 08/24/2018 Status: COMPLETED Source: [place] 12:00 AM [facility] REPOSITORY Patient Update ([facility]) ASHOK SAUCEDA ([id number]) 1975 F KDR Date Time Provider Department 08/24/18 AKIKO BENAVIDES (INSIDE SALES COORDINATOR) [facility] During your visit today, we recorded the following information about you: Allergies As of Date: 08/24/2018 Noted Allergy Reaction SULFA (SULFONAMIDE ANTIBIOTICS) 10/16/2005 1 - Mental Status Change Date Reviewed: 08/18/2018 Reviewed by: Dyana Terrazas (Rn) JOSH Hussein - Fully Assessed Prescriptions as of 08/24/2018 Sig: CARVEDILOL 12.5 MG TABLET Take 1 tablet by mouth twice * AMLODIPINE 5 MG TABLET TAKE 1 TABLET DAILY MYCOPHENOLATE MOFETIL 250 MG * TAKE 2 CAPSULES BY MOUTH TWIC* SIMVASTATIN 20 MG TABLET TAKE 1 TABLET DAILY TACROLIMUS 1 MG CAPSULE TAKE 2 MG IN THE AM, 1MG IN T* FAMOTIDINE 20 MG TABLET TAKE 2 TABLETS TWICE A DAY LEVOTHYROXINE 50 MCG TABLET TAKE 1 TABLET DAILY PREDNISONE 10 MG TABLET TAKE DIRECTED ARANESP INJECTION by INJECTION(UNSPECIFIED PARE* FUROSEMIDE 20 MG TABLET TAKE 1 TABLET NEEDED FOR E* SODIUM CHLORIDE 0.9% FLUSH Access implanted vascular acc* HEPARIN, PORCINE (PF) 100 UNI* Access implanted vascular acc* AMOXICILLIN 500 MG TABLET Take four (4) tablets one ricky* ALLOPURINOL 100 MG TABLET Take 2 tablets by mouth once * SODIUM CHLORIDE 0.9% FLUSH Access implanted vascular acc* HEPARIN LOCK FLUSH (PORCINE) * Access implanted vascular acc* BIOTIN 10,000 MCG CAPSULE Take 1 capsule by mouth once * ACETAMINOPHEN 500 MG TABLET Take 1,000 mg by mouth every * HEPARIN LOCK FLUSH (PORCINE) * NURSING USE ONLY: USE FOR I* SODIUM CHLORIDE 0.9% FLUSH NURSING USE ONLY: USED FOR * FERROUS SULFATE 325 MG (65 MG* Take 1 tablet by mouth twice * Problem List As Of Date 08/24/2018 Noted Resolved End stage renal disease [N18.6] INVALID FOR*09/28/2013 NEPHRITIS NOS IN OTHER DIS [N05.8] INVALID FOR* Systemic lupus erythematosus [M32.9] Priority: Mild More... DIABETES MELLITUS TYPE II-UNCOMPL [E11.9] More... Legionnaires' disease [A48.1] 09/28/2013 More... MALIG SATISH ADNEXA NEC [C57.4] More... Acquired hemolytic anemia, unspecified [D59.9] More... Thrombocytopenia, unspecified [D69.6] More... 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 Cough [R05] 09/28/2013 More... CYSTITIS [595] More... Kidney replaced by transplant [Z94.0] INVALID FOR* Priority: A More... Unspecified disease of white blood cells [D72.9]INVALID FOR*01/13/2011 Anemia, unspecified [D64.9] INVALID FOR*11/21/2011 Neutropenia, unspecified [D70.9] INVALID FOR* Need for prophylactic immunotherapy [Z29.8] INVALID FOR*09/28/2013 Anemia in chronic renal disease [N18.9, D63.1] INVALID FOR* More... Urinary tract infection, E. 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 Hypertension [I10] INVALID FOR* Priority: B More... Hyperlipidemia [E78.5] INVALID FOR* Priority: C More... UTI (lower urinary tract infection) [N39.0] INVALID FOR*02/28/2015 Priority: Severe More... Flu-like symptoms [R68.89] INVALID FOR*02/28/2015 Priority: Moderate More... DVT prophylaxis [[id number]] INVALID FOR*02/28/2015 Priority: D More... Loose body in knee [M23.40] INVALID FOR* More... Osteonecrosis (HCC) [M87.9] INVALID FOR* More... Encounter Status:Closed by AKIKO BENAVIDES CNP on 08/30/18 RENAL FUNCTION PANEL Collected: 08/18/2018 Status: F Source: [place] 10:05 AM [facility] REPOSITORY TYPE CODE TESTS RESULT OUT OF REFERENCE UNITS RANGE LAB ALB 3.9-4.9 g/dL Albumin 4.7 LAB CA 8.5-10.2 mg/dL Calcium, Total 9.4 LAB PHOS 2.7-4.8 mg/dL Phosphorus 2.8 LAB GLU 74-99 mg/dL Glucose 87 Result Comment: The [place] Diabetes [employer] (ADA) provides guidance for cutoff values for fasting glucose and random glucose. The ADA defines fasting as no caloric intake for at least 8 hours. Fas ting plasma glucose results between 100 to 125 mg/dL indicate increased risk for diabetes (prediabetes). Fasting plasma glucose results greater than or equal to 126 mg/dL meet the criteria for diagnosis of diabetes. In the absence of unequivocal hyperglycemia, results should be confirmed by repeat testing. In a patient with classic symptoms of hyperglycemia or hyperglycemic crisis, random plasma glucose results greater than or equal to 200 mg/dL meet the criteria for diagnosis of diabetes. Reference: Standards of Medical Care in Diabetes 2016, [place] [employer] Association. Diabetes Care. 2016.39(Suppl 1). LAB BUN 7-21 mg/dL BUN High 29 LAB CRET 0.58-0.96 mg/dL Creatinine High 1.58 LAB NA 136-144 mmol/L Sodium 137 LAB K 3.7-5.1 mmol/L Potassium 4.0 LAB CL 97-105 mmol/L Chloride 104 LAB CO2 22-30 mmol/L Low CO2 20 LAB AGAP 9-18 mmol/L Anion Gap 13 LAB GFRAA eGFR- Amer. 43 LAB GFRNAA . eGFR-All Other Races 36 Result Comment: eGFR (Estimated GFR) Units of measure: mL/min/1.73 meters squared eGFR is derived from the reexpressed MDRD Study equation using the following parameters: serum creatinine, age, gender and race. The creatinine assay has been calibrated to be traceable to IDMS. An eGFR <60 mL/min/1.73m2 for >3 months is consistent with chronic kidney disease. Refer to KDOQI guidelines for clinical interpretation. In patients with unstable renal function, e.g. those with acute kidney injury, the eGFR may not accurately reflect actual GFR. Performed By: #### RFP #### [facility] [address] [id number] HEPATIC FUNC PNL [facility] Collected: 08/18/2018 Status: F Source: [place] 10:04 AM [facility] REPOSITORY TYPE CODE TESTS RESULT OUT OF REFERENCE UNITS RANGE LAB ALB 3.9-4.9 g/dL Requisitioning Albumin entry error Result Comment: Account Credited Performed By: #### PICHFP #### [facility] [address] [place] [address] HEPATIC FUNCTN PANEL Collected: 08/18/2018 Status: F Source: [place] 10:04 [facility] REPOSITORY TYPE CODE TESTS RESULT OUT OF REFERENCE UNITS RANGE LAB ALB 3.9-4.9 g/dL Albumin 4.7 LAB TBIL 0.2-1.3 mg/dL Bilirubin, Total 0.3 LAB CBIL <0.2 mg/dL Bilirubin,Conjuga <0.2 thomas LAB ALKP 34-123 U/L Alkaline Phosphatase 63 LAB AST 13-35 U/L AST 23 LAB ALT 7-38 U/L ALT 14 LAB TP 6.3-8.0 g/dL Protein, Total 6.9 Performed By: #### HFP #### [facility] [id number] TACROLIMUS / [id number] Collected: 08/18/2018 Status: F Source: [place] 10:03 [facility] REPOSITORY TYPE CODE TESTS RESULT OUT OF REFERENCE UNITS RANGE LAB FK506 5.0-20.0 ng/mL Low Tacrolimus / <2.0 FK506 Result Comment: Drug concentration below assay detection limit. Please confirm drug regimen and cancel any standing orders for this drug level if the drug has been discontinued. Reference ranges and high/low indicator flags are provided as general guidelines only. The treating physician must determine appropriate target levels/dosing based on the specific clinical situation. Test performed by chemiluminescent immunoassay using famPlus. Result rechecked. Performed By: #### FK506 #### [facility] [address] [place], [place] [address] [place] ABS GR + CBC Collected: 08/18/2018 Status: F Source: [place] 9:57 AM [facility] REPOSITORY TYPE CODE TESTS RESULT OUT OF REFERENCE UNITS RANGE LAB WWBC 3.70-11.00 k/uL Low [place] WBC 2.40 LAB WRBC 3.90-5.20 m/uL Low [place] RBC 3.47 LAB WHGB 11.5-15.5 g/dL Low [place] Hemoglobin 10.4 LAB WHCT 36.0-46.0 % Low [place] Hematocrit 32.2 LAB WMCV 80.0-100.0 fL [place] MCV 92.8 LAB WMCH 26.0-34.0 pg [place] MCH 30.0 LAB WMCHC 30.5-36.0 g/dL [place] MCHC 32.3 LAB WRDW 11.5-15.0 % [place] RDW 13.0 LAB WPLT 150-400 k/uL Low [place] Platelet Cnt 144 LAB WMPV 9.0-12.7 fL [place] MPV 9.9 Result Comment: Test performed at: [facility], [address] [place] [address] Rd[address] [place] [address]. LAB ABGRAN 1.45-7.50 k/uL Low Absol 1.23 Gran Count [place] ABS GR + CBC Collected: 07/28/2018 Status: F Source: [place] 9:59 AM [facility] REPOSITORY TYPE CODE TESTS RESULT OUT OF REFERENCE UNITS RANGE LAB WWBC 3.70-11.00 k/uL [place] WBC 3.78 LAB WRBC 3.90-5.20 m/uL Low [place] RBC 3.53 LAB WHGB 11.5-15.5 g/dL Low [place] Hemoglobin 10.5 LAB WHCT 36.0-46.0 % Low [place] Hematocrit 31.9 LAB WMCV 80.0-100.0 fL [place] MCV 90.4 LAB WMCH 26.0-34.0 pg [place] MCH 29.7 LAB WMCHC 30.5-36.0 g/dL [place] MCHC 32.9 LAB WRDW 11.5-15.0 % [place] RDW 12.9 LAB WPLT 150-400 k/uL [place] Platelet Cnt 154 LAB WMPV 9.0-12.7 fL [place] MPV 10.0 Result Comment: Test performed at: [facility] [place], [address] [place] [address]. LAB ABGRAN 1.45-7.50 k/uL Absol Gran 1.81 Count TACROLIMUS / FK506 Collected: 07/28/2018 Status: F Source: [place] 9:59 AM [facility] REPOSITORY TYPE CODE TESTS RESULT OUT OF REFERENCE UNITS RANGE LAB FK506 5.0-20.0 ng/mL Low Tacrolimus / 4.7 FK506 Result Comment: These reference ranges are provided as a general recommendation. Individualized target levels for a given patient will depend on many factors (including the type of organ transplant, ti me since transplantation, concurrent medications, and other clinical factors), and should be assessed by those health care providers experienced in the management of immunosuppression. Reference ranges and high/low indicator flags are provided as general guidelines only. The treating physician must determine appropriate target levels/dosing based on the specific clinical situation. Test performed by chemiluminescent immunoassay using famPlus. Performed By: #### FK506 #### [facility] [address] [place], [place] [address] CBC AND DIFFERENTIAL Collected: 07/28/2018 Status: F Source: [place] 9:58 AM [facility] REPOSITORY TYPE CODE TESTS RESULT OUT OF REFERENCE UNITS RANGE LAB WBC 3.70-11.00 k/uL WBC 3.77 LAB RBC 3.90-5.20 m/uL Low RBC 3.51 LAB HGB 11.5-15.5 g/dL Low Hemoglobin 10.5 LAB HCT 36.0-46.0 % Low Hematocrit 31.9 LAB MCV 80.0-100.0 fL MCV 90.9 LAB MCH 26.0-34.0 pG MCH 29.9 LAB MCHC 30.5-36.0 g/dL MCHC 32.9 LAB RDWCV 11.5-15.0 % RDW-CV 12.9 LAB PLTCT 150-400 k/uL Platelet Count 164 LAB MPV 9.0-12.7 fL MPV 10.7 LAB ANEUT % Neut% 48.0 LAB AANEUT 1.45-7.50 k/uL Abs Neut 1.79 LAB ALYMP % Lymph% 38.7 LAB AALYMP 1.00-4.00 k/uL Abs Lymph 1.46 LAB AMONO % [place]% 11.1 LAB AAMONO <0.87 k/uL Abs [place] 0.42 LAB AEOS % Eosin% 1.9 LAB AAEOS <0.46 k/uL Abs Eosin 0.07 LAB ABASO % Baso% 0.3 LAB AABASO <0.11 k/uL Abs Baso <0.03 LAB AUNRBC 0 /100 WBC NRBCs 0.0 LAB ABNRBC <0.01 k/uL Absolute nRBC <0.01 LAB DTYP DTYPE Auto Diff Performed By: #### CBCDIF, RFP #### [facility] [address], [place] [address] RENAL FUNCTION PANEL Collected: 07/28/2018 Status: F Source: [place] 9:58 AM [facility] REPOSITORY TYPE CODE TESTS RESULT OUT OF REFERENCE UNITS RANGE LAB ALB 3.9-4.9 g/dL Albumin 4.7 LAB CA 8.5-10.2 mg/dL Calcium, Total 10.0 LAB PHOS 2.7-4.8 mg/dL Phosphorus 4.5 LAB GLU 74-99 mg/dL Glucose 89 Result Comment: The [place] Diabetes Association (ADA) provides guidance for cutoff values for fasting glucose and random glucose. The ADA defines fasting as no caloric intake for at least 8 hours. Fas ting plasma glucose results between 100 to 125 mg/dL indicate increased risk for diabetes (prediabetes). Fasting plasma glucose results greater than or equal to 126 mg/dL meet the criteria for diagnosis of diabetes. In the absence of unequivocal hyperglycemia, results should be confirmed by repeat testing. In a patient with classic symptoms of hyperglycemia or hyperglycemic crisis, random plasma glucose results greater than or equal to 200 mg/dL meet the criteria for diagnosis of diabetes. Reference: Standards of Medical Care in Diabetes 2016, [place] [employer] Association. Diabetes Care. 2016.39(Suppl 1). LAB BUN 7-21 mg/dL BUN High 56 LAB CRET 0.58-0.96 mg/dL Creatinine High 1.78 LAB NA 136-144 mmol/L Sodium 142 LAB K 3.7-5.1 mmol/L Potassium 4.6 LAB CL 97-105 mmol/L Chloride High 107 LAB CO2 22-30 mmol/L Low CO2 19 LAB AGAP 9-18 mmol/L Anion Gap 16 LAB GFRAA eGFR- Amer. 38 LAB GFRNAA . eGFR-All Other Races 31 Result Comment: eGFR (Estimated GFR) Units of measure: mL/min/1.73 meters squared eGFR is derived from the reexpressed MDRD Study equation using the following parameters: serum creatinine, age, gender and race. The creatinine assay has been calibrated to be traceable to IDMS. An eGFR <60 mL/min/1.73m2 for >3 months is consistent with chronic kidney disease. Refer to KDOQI guidelines for clinical interpretation. In patients with unstable renal function, e.g. those with acute kidney injury, the eGFR may not accurately reflect actual GFR. Performed By: #### CBCDIF, RFP #### [facility] [address] [place] [id number] PROGRESS Observed: 07/27/2018 Status: COMPLETED Source: [place] 11:45 AM [facility] REPOSITORY O ID: [id number] Author: Edgardo Nguyen Service: (none) Author Type: Physician Type: Progress Notes Filed: 07/27/2018 12:56 PM Note Text: [facility] Transplant Follow up CC: kidney transplant follow up July 27, 2018 11:46 AM HPI This is a 42 year old female who presents for follow up of a DD kidney transplant. Date of Transplant: 01-05-12 Transplant number: #2 Base line Scr 1.5-1.8 Donor kidney age/gender: 46 YO MALE Original Disease: LUPUS CMV status: -/+ Induction therapy: Simulect Protocol Bx: NA 3-6 mo: 04/07/12 Transplant kidney, biopsy - Very low side of changes suspicious for acute cellular rejection. -Slight chronic interstitial inflammation and slight interstitial fibrosis. -Patchy global glomerulosclerosis. -Mild arteriolosclerosis. 06/21/13 Protocol Biopsy: Transplant kidney, biopsy - Focal global sclerosis. -Chronic sclerosing grade 2A. -Changes suspicious for acute cellular rejection. -Moderate arteriolosclerosis Problem List: 1. 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 Maher. Treated with Cytoxan/pred. 2. 12/2004 stillborn. 3. DD RTXP 0 mismatch (import from [place]; 48 yo male, COD: stroke) (D+/R+). Thymo induction, and pred free initially; One episode of rejection in first month [place] 2A; with endarteritis, and no C4d. retreated with thymo and good response. 4. Leukopenia requiring Neupogen support 5. chronic low grade thrombocytopenia 6. Nov 23 for MRSA bacteremia-, URI s/p HIVAT 7. 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 AVN left knee -- has been bothering her singificantly 11, Recurrent Gout Interval: still w fatigue. didn't get last aranesp (not approved for Hgb 10) o/w ok notes low bp fluid intake variable Current Outpatient Prescriptions: amLODIPine (NORVASC) 5 mg tablet TAKE 1 TABLET DAILY mycophenolate mofetil (CELLCEPT) 250 mg capsule TAKE 2 CAPSULES BY MOUTH TWICE DAILY. Z94.0 simvastatin (ZOCOR) 20 mg tablet TAKE 1 TABLET DAILY tacrolimus (PROGRAF) 1 mg capsule TAKE 2 MG IN THE AM, 1MG IN THE PM ON 12 HOUR SCHEDULE. ICD-10: Z94.0 famotidine (PEPCID) 20 mg tablet TAKE 2 TABLETS TWICE A DAY levothyroxine (SYNTHROID) 50 mcg tablet TAKE 1 TABLET DAILY predniSONE (DELTASONE) 10 mg tablet TAKE DIRECTED furosemide (LASIX) 20 mg tablet TAKE 1 TABLET NEEDED FOR EDEMA carvedilol (COREG) 12.5 mg tablet TAKE 2 TABLETS TWICE A DAY allopurinol (ZYLOPRIM) 100 mg tablet Take 2 tablets by mouth once daily. Biotin 10,000 mcg cap Take 1 capsule by mouth once daily. acetaminophen (TYLENOL) 500 mg tablet Take 1,000 mg by mouth every 6 hours as needed. Ferrous Sulfate (IRON) 325 mg (65 mg iron) tablet Take 1 tablet by mouth twice daily. DARBEPOETIN MARY KAY IN ALBUMN ODELL (ARANESP INJECTION) by INJECTION(UNSPECIFIED PARENTERAL ROUTES) route. 0.9 % SODIUM CHLORIDE (0.9% NACL) Access implanted vascular access device (IVAD) as needed for flush, blood draw or treatment.Flush IVAD with 10-20 mL NS every 4 weeks and PRN when IVAD not in use. heparin 100 unit/mL injection Access implanted vascular access device (IVAD) as needed for flush, blood draw or treatment. Before de-accessing port, flush with 10-20ml normal saline and follow with 5 mL heparin (100 units/mL) (if no heparin allergy). De-access port on treatment completion. Amoxicillin 500 mg tablet Take four (4) tablets one hour before dental procedure. 0.9% NaCl Access implanted vascular access device (IVAD) as needed for flush, blood draw or treatment.Flush IVAD with 10-20 mL NS every 4 weeks and PRN when IVAD not in use. heparin 100 unit/mL syrg Access implanted vascular access device (IVAD) as needed for flush, blood draw or treatment. Before de-accessing port, flush with 10-20ml normal saline and follow with 5 mL heparin (100 units/mL) (if no heparin allergy). De-access port on treatment completion. heparin 100 unit/mL syrg NURSING USE ONLY: USE FOR IVAD ACCESS FLUSH. AMBULATORY/OUTPATINET: PLEASE REORDER UPON HOSPITAL DISCHARGEMay access implanted vascular access device (IVAD) as needed for treatment. Before de-accessing port, flush with 10-20ml normal saline and follow with 5 mL heparin (100 units/mL) (if no heparin allergy). 0.9% NaCl NURSING USE ONLY: USED FOR IVAD ACCESS. AMBULATORY/OUTPATIENT: PLEASE REORDER UPON HOSPITAL DISCHARGE May access implanted vascular access device (IVAD) as needed for treatment.Flush IVAD with 10-20 mL NS every 4 weeks and PRN when IVAD not in use. No current facility-administered medications for this visit. BP 106/79 (BP Site: Left Arm, BP Position: Sitting, BP Cuff Size: Regular Adult) Pulse 71 Temp 36.7 ?C (98.1 ?F) (Tympanic) Ht 160 cm (5' 3) Wt 61.7 kg (136 lb) BMI 24.09 kg/m? HEENT: NC/AT, anicteric No oral lesions Neck supple No JVP Lungs CTA bilat no wheeze, rales CV RRR, no m/r/g ABD soft, NT Allograft nontender No peripheral edema Neuro nonfocal Creatinine (mg/dL) Date Value 06/30/2018 1.62 06/16/2018 1.65 06/02/2018 1.54 BUN (mg/dL) Date Value 06/30/2018 33 06/16/2018 40 06/02/2018 34 Potassium (mmol/L) Date Value 06/30/2018 4.4 06/16/2018 4.1 06/02/2018 4.7 WBC (k/uL) Date Value 06/10/2017 3.58 03/11/2017 4.75 02/24/2015 5.48 Hemoglobin (g/dL) Date Value 06/10/2017 10.7 03/11/2017 9.8 02/24/2015 9.1 Hematocrit (%) Date Value 06/10/2017 33.9 03/11/2017 31.0 02/24/2015 28.3 Platelet Count (k/uL) Date Value 06/10/2017 174 03/11/2017 149 02/24/2015 98 Calcium (mg/dL) Date Value 06/30/2018 9.9 06/16/2018 10.0 06/02/2018 10.0 PTH, Intact (pg/mL) Date Value 06/16/2018 72 02/17/2018 62 10/28/2017 104 Lipase (U/L) Date Value 02/22/2015 25 01/24/2012 19 Vitamin D 25 Hydroxy (ng/mL) Date Value 06/16/2018 35.0 02/17/2018 25.9 10/28/2017 35.7 Tacrolimus/FK506 (ng/mL) Date Value 06/30/2018 7.4 06/16/2018 4.0 06/02/2018 5.0 Sirolimus/Rapamune (ng/mL) Date Value 03/08/2007 <1.0 02/08/2007 <1.0 Cholesterol, Total (mg/dL) Date Value 06/18/2016 127 04/22/2016 145 11/07/2015 115 HDL Cholesterol (mg/dL) Date Value 06/18/2016 31 04/22/2016 36 11/07/2015 31 LDL Cholesterol (mg/dL) Date Value 06/18/2016 60 04/22/2016 80 11/07/2015 39 Triglyceride (mg/dL) Date Value 06/18/2016 180 04/22/2016 147 11/07/2015 225 No results found for: PROTTIMED Protein, Urine Random (mg/dL) Date Value 07/13/2014 6 10/03/2013 21 06/27/2013 20 01/31/2013 28 07/26/2012 39 03/18/2012 65 Creatinine, Ur Random (UCRR) (mg/dL) Date Value 07/13/2014 25.9 10/03/2013 155.6 06/27/2013 142.5 01/31/2013 169.5 07/26/2012 167.0 03/18/2012 194.3 Impression: ESRD sec SLE S/p KTXP x 2 most recent 01/05/2012 Stable reduced GFR Therapeutic Tac level No proteinuria Drop coreg to 12.5 BID Leukopenia- stable Anemia on aranesp Knee OA-for surgery next few wks RTC 6 mo Edgardo Nguyen MD CNOV Observed: 07/27/2018 Status: COMPLETED Source: [place] 11:10 AM [facility] REPOSITORY Office Visit (NEPHMN) KOMALASHOK MAE ([id number]) 1975 F KDR Date Time Provider Department 07/27/18 11:10 AM EDGARDO NGUYEN NEPHDIDIER During your visit today, we recorded the following information about you: Temperature Pulse Blood pressure Weight 98.1 degrees 71/minute 106/79 61.7 kg Height 1.6 m Edgardo Nguyen MD 07/27/2018 12:56 PM Signed [facility] Follow up CC: kidney transplant follow up July 27, 2018 11:46 AM HPI This is a 42 year old female who presents for follow up of a DD kidney transplant. Date of Transplant: 01-05-12 Transplant number: #2 Base line Scr 1.5-1.8 Donor kidney age/gender: 46 YO MALE Original Disease: LUPUS CMV status: -/+ Induction therapy: Simulect Protocol Bx: NA 3-6 mo: 04/07/12 Transplant kidney, biopsy - Very low side of changes suspicious for acute cellular rejection. -Slight chronic interstitial inflammation and slight interstitial fibrosis. -Patchy global glomerulosclerosis. -Mild arteriolosclerosis. 06/21/13 Protocol Biopsy: Transplant kidney, biopsy - Focal global sclerosis. -Chronic sclerosing grade 2A. -Changes suspicious for acute cellular rejection. -Moderate arteriolosclerosis Problem List: 1. 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 Maher. Treated with Cytoxan/pred. 2. 12/2004 stillborn. 3. DD RTXP 0 mismatch (import from [place]; 48 yo male, COD: stroke) (D+/R+). Thymo induction, and pred free initially; One episode of rejection in first month [place] 2A; with endarteritis, and no C4d. retreated with thymo and good response. 4. Leukopenia requiring Neupogen support 5. chronic low grade thrombocytopenia 6. Nov 23 for MRSA bacteremia-, URI s/p HIVAT 7. 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 AVN left knee -- has been bothering her singificantly 11, Recurrent Gout Interval: still w fatigue. didn't get last aranesp (not approved for Hgb 10) o/w ok notes low bp fluid intake variable Current Outpatient Prescriptions: amLODIPine (NORVASC) 5 mg tablet TAKE 1 TABLET DAILY mycophenolate mofetil (CELLCEPT) 250 mg capsule TAKE 2 CAPSULES BY MOUTH TWICE DAILY. Z94.0 simvastatin (ZOCOR) 20 mg tablet TAKE 1 TABLET DAILY tacrolimus (PROGRAF) 1 mg capsule TAKE 2 MG IN THE AM, 1MG IN THE PM ON 12 HOUR SCHEDULE. ICD-10: Z94.0 famotidine (PEPCID) 20 mg tablet TAKE 2 TABLETS TWICE A DAY levothyroxine (SYNTHROID) 50 mcg tablet TAKE 1 TABLET DAILY predniSONE (DELTASONE) 10 mg tablet TAKE DIRECTED furosemide (LASIX) 20 mg tablet TAKE 1 TABLET NEEDED FOR EDEMA carvedilol (COREG) 12.5 mg tablet TAKE 2 TABLETS TWICE A DAY allopurinol (ZYLOPRIM) 100 mg tablet Take 2 tablets by mouth once daily. Biotin 10,000 mcg cap Take 1 capsule by mouth once daily. acetaminophen (TYLENOL) 500 mg tablet Take 1,000 mg by mouth every 6 hours as needed. Ferrous Sulfate (IRON) 325 mg (65 mg iron) tablet Take 1 tablet by mouth twice daily. DARBEPOETIN MARY KAY IN ALBUMN ODELL (ARANESP INJECTION) by INJECTION(UNSPECIFIED PARENTERAL ROUTES) route. 0.9 % SODIUM CHLORIDE (0.9% NACL) Access implanted vascular access device (IVAD) as needed for flush, blood draw or treatment.Flush IVAD with 10-20 mL NS every 4 weeks and PRN when IVAD not in use. heparin 100 unit/mL injection Access implanted vascular access device (IVAD) as needed for flush, blood draw or treatment. Before de-accessing port, flush with 10-20ml normal saline and follow with 5 mL heparin (100 units/mL) (if no heparin allergy). De-access port on treatment completion. Amoxicillin 500 mg tablet Take four (4) tablets one hour before dental procedure. 0.9% NaCl Access implanted vascular access device (IVAD) as needed for flush, blood draw or treatment.Flush IVAD with 10-20 mL NS every 4 weeks and PRN when IVAD not in use. heparin 100 unit/mL syrg Access implanted vascular access device (IVAD) as needed for flush, blood draw or treatment. Before de-accessing port, flush with 10-20ml normal saline and follow with 5 mL heparin (100 units/mL) (if no heparin allergy). De-access port on treatment completion. heparin 100 unit/mL syrg NURSING USE ONLY: USE FOR IVAD ACCESS FLUSH. AMBULATORY/OUTPATINET: PLEASE REORDER UPON HOSPITAL DISCHARGEMay access implanted vascular access device (IVAD) as needed for treatment. Before de-accessing port, flush with 10-20ml normal saline and follow with 5 mL heparin (100 units/mL) (if no heparin allergy). 0.9% NaCl NURSING USE ONLY: USED FOR IVAD ACCESS. AMBULATORY/OUTPATIENT: PLEASE REORDER UPON HOSPITAL DISCHARGE May access implanted vascular access device (IVAD) as needed for treatment.Flush IVAD with 10-20 mL NS every 4 weeks and PRN when IVAD not in use. No current facility-administered medications for this visit. BP 106/79 (BP Site: Left Arm, BP Position: Sitting, BP Cuff Size: Regular Adult) Pulse 71 Temp 36.7 ?C (98.1 ?F) (Tympanic) Ht 160 cm (5' 3) Wt 61.7 kg (136 lb) BMI 24.09 kg/m? HEENT: NC/AT, anicteric No oral lesions Neck supple No JVP Lungs CTA bilat no wheeze, rales CV RRR, no m/r/g ABD soft, NT Allograft nontender No peripheral edema Neuro nonfocal Creatinine (mg/dL) Date Value 06/30/2018 1.62 06/16/2018 1.65 06/02/2018 1.54 BUN (mg/dL) Date Value 06/30/2018 33 06/16/2018 40 06/02/2018 34 Potassium (mmol/L) Date Value 06/30/2018 4.4 06/16/2018 4.1 06/02/2018 4.7 WBC (k/uL) Date Value 06/10/2017 3.58 03/11/2017 4.75 02/24/2015 5.48 Hemoglobin (g/dL) Date Value 06/10/2017 10.7 03/11/2017 9.8 02/24/2015 9.1 Hematocrit (%) Date Value 06/10/2017 33.9 03/11/2017 31.0 02/24/2015 28.3 Platelet Count (k/uL) Date Value 06/10/2017 174 03/11/2017 149 02/24/2015 98 Calcium (mg/dL) Date Value 06/30/2018 9.9 06/16/2018 10.0 06/02/2018 10.0 PTH, Intact (pg/mL) Date Value 06/16/2018 72 02/17/2018 62 10/28/2017 104 Lipase (U/L) Date Value 02/22/2015 25 01/24/2012 19 Vitamin D 25 Hydroxy (ng/mL) Date Value 06/16/2018 35.0 02/17/2018 25.9 10/28/2017 35.7 Tacrolimus/FK506 (ng/mL) Date Value 06/30/2018 7.4 06/16/2018 4.0 06/02/2018 5.0 Sirolimus/Rapamune (ng/mL) Date Value 03/08/2007 <1.0 02/08/2007 <1.0 Cholesterol, Total (mg/dL) Date Value 06/18/2016 127 04/22/2016 145 11/07/2015 115 HDL Cholesterol (mg/dL) Date Value 06/18/2016 31 04/22/2016 36 11/07/2015 31 LDL Cholesterol (mg/dL) Date Value 06/18/2016 60 04/22/2016 80 11/07/2015 39 Triglyceride (mg/dL) Date Value 06/18/2016 180 04/22/2016 147 11/07/2015 225 No results found for: PROTTIMED Protein, Urine Random (mg/dL) Date Value 07/13/2014 6 10/03/2013 21 06/27/2013 20 01/31/2013 28 07/26/2012 39 03/18/2012 65 Creatinine, Ur Random (UCRR) (mg/dL) Date Value 07/13/2014 25.9 10/03/2013 155.6 06/27/2013 142.5 01/31/2013 169.5 07/26/2012 167.0 03/18/2012 194.3 Impression: ESRD sec SLE S/p KTXP x 2 most recent 01/05/2012 Stable reduced GFR Therapeutic Tac level No proteinuria Drop coreg to 12.5 BID Leukopenia- stable Anemia on aranesp Knee OA-for surgery next few wks RTC 6 mo Edgardo Nguyen MD Referring Provider: EDGARDO NGUYEN [[id number]] Allergies As of Date: 07/27/2018 Noted Allergy Reaction SULFA (SULFONAMIDE ANTIBIOTICS) 10/16/2005 1 - Mental Status Change Date Reviewed: 07/27/2018 Reviewed by: Edgardo Nguyen - Fully Assessed Primary Visit Diagnosis:Screening for genitourinary condition [Z13.89] Other Visit Diagnoses:Kidney replaced by transplant [Z94.0] Long-term use of immunosuppressant medication [Z79.899] Aftercare following organ transplant [Z48.298] Therapeutic drug monitoring [Z51.81] Order(s):UA CHEMSTRIP ONLY [SQUA] Order #: [id number] FUTURE UA CHEMSTRIP ONLY [SQUA] Order #: [id number] carvedilol (COREG) 12.5 mg tabletTake 1 tablet by mouth twice daily.Disp: 360 tabletRfl: 3 Prescriptions as of 07/27/2018 Sig: CARVEDILOL 12.5 MG TABLET Take 1 tablet by mouth twice * AMLODIPINE 5 MG TABLET TAKE 1 TABLET DAILY MYCOPHENOLATE MOFETIL 250 MG * TAKE 2 CAPSULES BY MOUTH TWIC* SIMVASTATIN 20 MG TABLET TAKE 1 TABLET DAILY TACROLIMUS 1 MG CAPSULE TAKE 2 MG IN THE AM, 1MG IN T* FAMOTIDINE 20 MG TABLET TAKE 2 TABLETS TWICE A DAY LEVOTHYROXINE 50 MCG TABLET TAKE 1 TABLET DAILY PREDNISONE 10 MG TABLET TAKE DIRECTED FUROSEMIDE 20 MG TABLET TAKE 1 TABLET NEEDED FOR E* ALLOPURINOL 100 MG TABLET Take 2 tablets by mouth once * BIOTIN 10,000 MCG CAPSULE Take 1 capsule by mouth once * ACETAMINOPHEN 500 MG TABLET Take 1,000 mg by mouth every * FERROUS SULFATE 325 MG (65 MG* Take 1 tablet by mouth twice * ARANESP INJECTION by INJECTION(UNSPECIFIED PARE* SODIUM CHLORIDE 0.9% FLUSH Access implanted vascular acc* HEPARIN, PORCINE (PF) 100 UNI* Access implanted vascular acc* AMOXICILLIN 500 MG TABLET Take four (4) tablets one ricky* SODIUM CHLORIDE 0.9% FLUSH Access implanted vascular acc* HEPARIN LOCK FLUSH (PORCINE) * Access implanted vascular acc* HEPARIN LOCK FLUSH (PORCINE) * NURSING USE ONLY: USE FOR I* SODIUM CHLORIDE 0.9% FLUSH NURSING USE ONLY: USED FOR * Problem List As Of Date 07/27/2018 Noted Resolved End stage renal disease [N18.6] INVALID FOR*09/28/2013 NEPHRITIS NOS IN OTHER DIS [N05.8] INVALID FOR* Systemic lupus erythematosus [M32.9] Priority: Mild More... DIABETES MELLITUS TYPE II-UNCOMPL [E11.9] More... Legionnaires' disease [A48.1] 09/28/2013 More... MALIG SATISH ADNEXA NEC [C57.4] More... Acquired hemolytic anemia, unspecified [D59.9] More... Thrombocytopenia, unspecified [D69.6] More... 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 Cough [R05] 09/28/2013 More... CYSTITIS [595] More... Kidney replaced by transplant [Z94.0] INVALID FOR* Priority: A More... Unspecified disease of white blood cells [D72.9]INVALID FOR*01/13/2011 Anemia, unspecified [D64.9] INVALID FOR*11/21/2011 Neutropenia, unspecified [D70.9] INVALID FOR* Need for prophylactic immunotherapy [Z29.8] INVALID FOR*09/28/2013 Anemia in chronic renal disease [N18.9, D63.1] INVALID FOR* More... Urinary tract infection, E. 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 Hypertension [I10] INVALID FOR* Priority: B More... Hyperlipidemia [E78.5] INVALID FOR* Priority: C More... UTI (lower urinary tract infection) [N39.0] INVALID FOR*02/28/2015 Priority: Severe More... Flu-like symptoms [R68.89] INVALID FOR*02/28/2015 Priority: Moderate More... DVT prophylaxis [CVV0094] INVALID FOR*02/28/2015 Priority: D More... Prescriptions ordered this encounter Disp Refills Start End CARVEDILOL 12.5 MG TABLET 360 * 3 07/27/2018 Class: Med Update Route: ORAL Sig: Take 1 tablet by mouth twice daily. Medications Discontinued During This Encounter carvedilol (COREG) 12.5 mg tablet 360 * 3 10/01/2017 07/27/2018 Class: [facility] Sig: TAKE 2 TABLETS TWICE A DAY Disc: Reason for discontinue is not on file. Encounter Status:Closed by EDGARDO NGUYEN MD on 07/27/18 CANDICEOVSP Observed: 07/14/2018 Status: COMPLETED Source: [place] 9:30 AM [facility] REPOSITORY Visit (SP) Office (ANETTE) ASHOK SAUCEDA ([id number]) 1975 F KDR Date Time Provider Department 07/14/18 9:30 AM SCHUYLER ABRAMS During your visit today, we recorded the following information about you: Temperature Pulse Blood pressure Weight 98 degrees 73/minute 137/91 63.3 kg Schuyler Abrams, 07/14/2018 10:00 AM Signed Diagnoses: 1) Anemia secondary to CKD, SLE and LOUISE. 2) Neutropenia secondary to SLE. Underwent second renal transplant 01/05/12. Presents for ongoing management. Interim history: She has no complaints today. She scheduled for arthroscopic knee surgery September 07. She still using prednisone 5 mg on an as-needed basis for flares of gout. Her energy levels are doing fairly well. She is definitely symptomatic from the anemia if hemoglobin goes under 10. She gets more short of breath with exertion and has generalized fatigue making it hard to care for her children when hemoglobin is under 10. Otherwise she's had no recent rash or episode of fever or other acute illness. Appetite is normal. PMH, medications and allergies as below personally reviewed by me today. Any changes documented in appropriate section. ROS: The complete 10 point review of systems is otherwise negative. PHYSICAL EXAM: Vitals: Blood pressure 137/91, pulse 73, temperature 36.7 ?C (98 ?F), temperature source Temporal Artery, weight 63.3 kg (139 lb 8 oz). Well-appearing and in no acute distress. EYES: Sclerae are anicteric bilaterally. ENT: Oral mucosa is unremarkable. There is no sign of thrush, mucositis or gingival bleeding. NECK: Supple. LYMPHATIC: There is no palpable cervical, supraclavicular or axillary or inguinal adenopathy. RESPIRATORY: Inspiratory breath sounds are of normal intensity in all marquez. No wheezes or rhonchi. CARDIOVASCULAR: Rhythm is regular. Normal intensity S1/S2. There is no gallop or murmur. ABDOMEN: The abdomen is nondistended. There is no organomegaly. No tenderness. 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 Extremities: Free of edema. SKIN: No jaundice or rash. No petechiae. NEUROLOGIC: resident services coordinator II-XII are grossly intact. No focal motor weakness. ASSESSMENT/PLAN: (M32.19) Systemic lupus erythematosus with other organ involvement, unspecified SLE type (HCC) (primary encounter diagnosis) (N18.9, D63.1) Anemia in chronic renal disease Assessment: -She's been tolerating and responding very well to CORINNA therapy for her history of chronic anemia secondary to lupus as well as chronic kidney disease. -Much more symptomatic when hemoglobin declines under 10 grams per deciliter. Plan: -Continue monitoring CBC with Aranesp administration for hemoglobin under 10.0 g/dL. Schuyler Abrams DO Referring Provider: SCHUYLER ABRAMS [[id number]] Allergies As of Date: 07/14/2018 Noted Allergy Reaction SULFA (SULFONAMIDE ANTIBIOTICS) 10/16/2005 1 - Mental Status Change Date Reviewed: 07/14/2018 Reviewed by: Tena Morales - Fully Assessed Reason for Visit: Established Patient [175] Primary Visit Diagnosis:Anemia in chronic kidney disease, unspecified CKD stage [N18.9, D63.1] Follow-up and Disposition History Recorded Prescriptions as of 07/14/2018 Sig: AMLODIPINE 5 MG TABLET TAKE 1 TABLET DAILY MYCOPHENOLATE MOFETIL 250 MG * TAKE 2 CAPSULES BY MOUTH TWIC* SIMVASTATIN 20 MG TABLET TAKE 1 TABLET DAILY TACROLIMUS 1 MG CAPSULE TAKE 2 MG IN THE AM, 1MG IN T* FAMOTIDINE 20 MG TABLET TAKE 2 TABLETS TWICE A DAY LEVOTHYROXINE 50 MCG TABLET TAKE 1 TABLET DAILY PREDNISONE 10 MG TABLET TAKE DIRECTED ARANESP INJECTION by INJECTION(UNSPECIFIED PARE* FUROSEMIDE 20 MG TABLET TAKE 1 TABLET NEEDED FOR E* SODIUM CHLORIDE 0.9% FLUSH Access implanted vascular acc* HEPARIN, PORCINE (PF) 100 UNI* Access implanted vascular acc* CARVEDILOL 12.5 MG TABLET TAKE 2 TABLETS TWICE A DAY AMOXICILLIN 500 MG TABLET Take four (4) tablets one ricky* ALLOPURINOL 100 MG TABLET Take 2 tablets by mouth once * SODIUM CHLORIDE 0.9% FLUSH Access implanted vascular acc* HEPARIN LOCK FLUSH (PORCINE) * Access implanted vascular acc* BIOTIN 10,000 MCG CAPSULE Take 1 capsule by mouth once * ACETAMINOPHEN 500 MG TABLET Take 1,000 mg by mouth every * HEPARIN LOCK FLUSH (PORCINE) * NURSING USE ONLY: USE FOR I* SODIUM CHLORIDE 0.9% FLUSH NURSING USE ONLY: USED FOR * FERROUS SULFATE 325 MG (65 MG* Take 1 tablet by mouth twice * Medication notes this encounter PREDNISONE 10 MG TABLET >> Schuyler Abrams DO 07/14/2018 9:33 AM >> SCHUYLER ABRAMS DO ThuJul 14, 2018 9:33 AM Taking 5 mg prn for flares of gout. ALENDRONATE 35 MG TABLET >> Tnea Morales MA 07/14/2018 9:23 AM >> TENA MORALES MA ThuJul 14, 2018 9:23 AM Not taking Problem List As Of Date 07/14/2018 Noted Resolved End stage renal disease [N18.6] INVALID FOR*09/28/2013 NEPHRITIS NOS IN OTHER DIS [N05.8] INVALID FOR* Systemic lupus erythematosus [M32.9] Priority: Mild More... DIABETES MELLITUS TYPE II-UNCOMPL [E11.9] More... Legionnaires' disease [A48.1] 09/28/2013 More... MALIG SATISH ADNEXA NEC [C57.4] More... Acquired hemolytic anemia, unspecified [D59.9] More... Thrombocytopenia, unspecified [D69.6] More... 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 Cough [R05] 09/28/2013 More... CYSTITIS [595] More... Kidney replaced by transplant [Z94.0] INVALID FOR* Priority: A More... Unspecified disease of white blood cells [D72.9]INVALID FOR*01/13/2011 Anemia, unspecified [D64.9] INVALID FOR*11/21/2011 Neutropenia, unspecified [D70.9] INVALID FOR* Need for prophylactic immunotherapy [Z29.8] INVALID FOR*09/28/2013 Anemia in chronic renal disease [N18.9, D63.1] INVALID FOR* More... Urinary tract infection, E. 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 Hypertension [I10] INVALID FOR* Priority: B More... Hyperlipidemia [E78.5] INVALID FOR* Priority: C More... UTI (lower urinary tract infection) [N39.0] INVALID FOR*02/28/2015 Priority: Severe More... Flu-like symptoms [R68.89] INVALID FOR*02/28/2015 Priority: Moderate More... DVT prophylaxis [[id number]] INVALID FOR*02/28/2015 Priority: D More... Encounter Status:Closed by SCHUYLER ABRAMS DO on 07/14/18 PROGRESS Observed: 07/14/2018 Status: COMPLETED Source: [place] 9:23 AM [facility] REPOSITORY HNO ID: [id number] Author: Schuyler Abrams Service: (none) Author Type: Physician Type: Progress Notes Filed: 07/14/2018 10:00 AM Note Text: Diagnoses: 1) Anemia secondary to CKD, SLE and LOUISE. 2) Neutropenia secondary to SLE. Underwent second renal transplant 01/05/12. Presents for ongoing management. Interim history: She has no complaints today. She scheduled for arthroscopic knee surgery September 07. She still using prednisone 5 mg on an as-needed basis for flares of gout. Her energy levels are doing fairly well. She is definitely symptomatic from the anemia if hemoglobin goes under 10. She gets more short of breath with exertion and has generalized fatigue making it hard to care for her children when hemoglobin is under 10. Otherwise she's had no recent rash or episode of fever or other acute illness. Appetite is normal. PMH, medications and allergies as below personally reviewed by me today. Any changes documented in appropriate section. ROS: The complete 10 point review of systems is otherwise negative. PHYSICAL EXAM: Vitals: Blood pressure 137/91, pulse 73, temperature 36.7 ?C (98 ?F), temperature source Temporal Artery, weight 63.3 kg (139 lb 8 oz). Well-appearing and in no acute distress. EYES: Sclerae are anicteric bilaterally. ENT: Oral mucosa is unremarkable. There is no sign of thrush, mucositis or gingival bleeding. NECK: Supple. LYMPHATIC: There is no palpable cervical, supraclavicular or axillary or inguinal adenopathy. RESPIRATORY: Inspiratory breath sounds are of normal intensity in all marquez. No wheezes or rhonchi. CARDIOVASCULAR: Rhythm is regular. Normal intensity S1/S2. There is no gallop or murmur. ABDOMEN: The abdomen is nondistended. There is no organomegaly. No tenderness. 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 Extremities: Free of edema. SKIN: No jaundice or rash. No petechiae. NEUROLOGIC: resident services coordinator II-XII are grossly intact. No focal motor weakness. ASSESSMENT/PLAN: (M32.19) Systemic lupus erythematosus with other organ involvement, unspecified SLE type (HCC) (primary encounter diagnosis) (N18.9, D63.1) Anemia in chronic renal disease Assessment: -She's been tolerating and responding very well to CORINNA therapy for her history of chronic anemia secondary to lupus as well as chronic kidney disease. -Much more symptomatic when hemoglobin declines under 10 grams per deciliter. Plan: -Continue monitoring CBC with Aranesp administration for hemoglobin under 10.0 g/dL. Schuyler Abrams DO [place] ABS GR + CBC Collected: 07/14/2018 Status: F Source: [place] 9:20 AM [facility] REPOSITORY TYPE CODE TESTS RESULT OUT OF REFERENCE UNITS RANGE LAB WWBC 3.70-11.00 k/uL Low [place] WBC 3.12 LAB WRBC 3.90-5.20 m/uL Low [place] RBC 3.38 LAB WHGB 11.5-15.5 g/dL Low [place] Hemoglobin 10.0 LAB WHCT 36.0-46.0 % Low [place] Hematocrit 31.0 LAB WMCV 80.0-100.0 fL [place] MCV 91.7 LAB WMCH 26.0-34.0 pg [place] MCH 29.6 LAB WMCHC 30.5-36.0 g/dL [place] MCHC 32.3 LAB WRDW 11.5-15.0 % [place] RDW 12.6 LAB WPLT 150-400 k/uL Low [place] Platelet Cnt 127 LAB WMPV 9.0-12.7 fL [place] MPV 9.2 Result Comment: Test performed at: [facility] [place] [address] [place] [address]. LAB ABGRAN 1.45-7.50 k/uL Absol Gran 1.60 Count [place] ABS GR + CBC Collected: 06/30/2018 Status: F Source: [place] 10:00 AM [facility] REPOSITORY TYPE CODE TESTS RESULT OUT OF REFERENCE UNITS RANGE LAB WWBC 3.70-11.00 k/uL Low [place] WBC 3.39 LAB WRBC 3.90-5.20 m/uL Low [place] RBC 3.47 LAB WHGB 11.5-15.5 g/dL Low [place] Hemoglobin 10.4 LAB WHCT 36.0-46.0 % Low [place] Hematocrit 32.0 LAB WMCV 80.0-100.0 fL [place] MCV 92.2 LAB WMCH 26.0-34.0 pg [place] MCH 30.0 LAB WMCHC 30.5-36.0 g/dL [place] MCHC 32.5 LAB WRDW 11.5-15.0 % [place] RDW 13.0 LAB WPLT 150-400 k/uL [place] Platelet Cnt 158 LAB WMPV 9.0-12.7 fL [place] MPV 9.1 Result Comment: Test performed at: [facility] [place], [address] [place] [address]. LAB ABGRAN 1.45-7.50 k/uL Absol Gran 1.71 Count RENAL FUNCTION PANEL Collected: 06/30/2018 Status: F Source: [place] 10:00 AM [facility] REPOSITORY TYPE CODE TESTS RESULT OUT OF REFERENCE UNITS RANGE LAB ALB 3.9-4.9 g/dL Albumin 4.9 LAB CA 8.5-10.2 mg/dL Calcium, Total 9.9 LAB PHOS 2.7-4.8 mg/dL Phosphorus 3.8 LAB GLU 74-99 mg/dL Glucose 82 Result Comment: The [place] Diabetes Association (ADA) provides guidance for cutoff values for fasting glucose and random glucose. The ADA defines fasting as no caloric intake for at least 8 hours. Fas ting plasma glucose results between 100 to 125 mg/dL indicate increased risk for diabetes (prediabetes). Fasting plasma glucose results greater than or equal to 126 mg/dL meet the criteria for diagnosis of diabetes. In the absence of unequivocal hyperglycemia, results should be confirmed by repeat testing. In a patient with classic symptoms of hyperglycemia or hyperglycemic crisis, random plasma glucose results greater than or equal to 200 mg/dL meet the criteria for diagnosis of diabetes. Reference: Standards of Medical Care in Diabetes 2016, [place] [employer]. Diabetes Care. 2016.39(Suppl 1). LAB BUN 7-21 mg/dL BUN High 33 LAB CRET 0.58-0.96 mg/dL Creatinine High 1.62 LAB NA 136-144 mmol/L Sodium 143 LAB K 3.7-5.1 mmol/L Potassium 4.4 LAB CL 97-105 mmol/L Chloride High 106 LAB CO2 22-30 mmol/L CO2 23 LAB AGAP 9-18 mmol/L Anion Gap 14 LAB GFRAA eGFR- Amer. 42 LAB GFRNAA . eGFR-All Other Races 35 Result Comment: eGFR (Estimated GFR) Units of measure: mL/min/1.73 meters squared eGFR is derived from the reexpressed MDRD Study equation using the following parameters: serum creatinine, age, gender and race. The creatinine assay has been calibrated to be traceable to IDMS. An eGFR <60 mL/min/1.73m2 for >3 months is consistent with chronic kidney disease. Refer to KDOQI guidelines for clinical interpretation. In patients with unstable renal function, e.g. those with acute kidney injury, the eGFR may not accurately reflect actual GFR. Performed By: #### RFP BKQUFEMI #### [facility] [address] [address] BK VIRUS PCR,QUANT,P Collected: 06/30/2018 Status: F Source: [place] 10:00 [facility] REPOSITORY TYPE CODE TESTS RESULT OUT OF REFERENCE UNITS RANGE LAB BKVDNA copies/mL BK Negative for Virus DNA BK virus DNA QN PCR by PCR Result Comment: Reference Range: Negative for BK virus DNA The Linear Range of this assay is 500 copies/mL to 5,000,000 copies/mL. This test was developed and its performance characteristics determined by [facility]'s [facility] [place] [facility]). It has not been cleared or approved by the FDA. -[facility] is regulated under CLIA as qualified to perform high-complexity testing. This test is used for clinical purposes. It should not be regarded as investigational or for research. Performed By: #### RFP, BKQUAN #### [facility] [address] [place] [id number] TACROLIMUS / FK506 Collected: 06/30/2018 Status: F Source: [place] 10:00 [facility] REPOSITORY TYPE CODE TESTS RESULT OUT OF REFERENCE UNITS RANGE LAB FK506 5.0-20.0 ng/mL Tacrolimus / 7.4 FK506 Result Comment: These reference ranges are provided as a general recommendation. Individualized target levels for a given patient will depend on many factors (including the type of organ transplant, ti me since transplantation, concurrent medications, and other clinical factors), and should be assessed by those health care providers experienced in the management of immunosuppression. Reference ranges and high/low indicator flags are provided as general guidelines only. The treating physician must determine appropriate target levels/dosing based on the specific clinical situation. Test performed by chemiluminescent immunoassay using famPlus. Performed By: #### FK506 #### [facility] [address] [place], [place] [address] [place] ABS GR + CBC Collected: 06/16/2018 Status: F Source: [place] 9:51 AM [facility] REPOSITORY TYPE CODE TESTS RESULT OUT OF REFERENCE UNITS RANGE LAB WWBC 3.70-11.00 k/uL Low [place] WBC 3.16 LAB WRBC 3.90-5.20 m/uL Low [place] RBC 3.64 LAB WHGB 11.5-15.5 g/dL Low [place] Hemoglobin 11.0 LAB WHCT 36.0-46.0 % Low [place] Hematocrit 33.3 LAB WMCV 80.0-100.0 fL [place] MCV 91.5 LAB WMCH 26.0-34.0 pg [place] MCH 30.2 LAB WMCHC 30.5-36.0 g/dL [place] MCHC 33.0 LAB WRDW 11.5-15.0 % [place] RDW 13.0 LAB WPLT 150-400 k/uL [place] Platelet Cnt 154 LAB WMPV 9.0-12.7 fL [place] MPV 9.9 Result Comment: Test performed at: [facility], [address] [place] [address]. LAB ABGRAN 1.45-7.50 k/uL Absol Gran 1.61 Count TACROLIMUS / FK506 Collected: 06/16/2018 Status: F Source: [place] 9:50 AM [facility] REPOSITORY TYPE CODE TESTS RESULT OUT OF REFERENCE UNITS RANGE LAB FK506 5.0-20.0 ng/mL Low Tacrolimus / 4.0 FK506 Result Comment: These reference ranges are provided as a general recommendation. Individualized target levels for a given patient will depend on many factors (including the type of organ transplant, ti me since transplantation, concurrent medications, and other clinical factors), and should be assessed by those health care providers experienced in the management of immunosuppression. Reference ranges and high/low indicator flags are provided as general guidelines only. The treating physician must determine appropriate target levels/dosing based on the specific clinical situation. Test performed by chemiluminescent immunoassay using Rob Shirt Operator. Performed By: #### FK506 #### [facility] [address] [place], [place] [address] PTH, INTACT Collected: 06/16/2018 Status: F Source: [place] 9:49 AM [facility] REPOSITORY TYPE CODE TESTS RESULT OUT OF REFERENCE UNITS RANGE LAB PTH 15-65 pg/mL High PTH, Intact 72 Performed By: #### PTHI, RFP, VITD, BKQUAN #### [facility] [address] [place], [place] [id number] RENAL FUNCTION PANEL Collected: 06/16/2018 Status: F Source: [place] 9:49 AM [facility] REPOSITORY TYPE CODE TESTS RESULT OUT OF REFERENCE UNITS RANGE LAB ALB 3.9-4.9 g/dL Albumin 4.8 LAB CA 8.5-10.2 mg/dL Calcium, Total 10.0 LAB PHOS 2.7-4.8 mg/dL Phosphorus 3.2 LAB GLU 74-99 mg/dL Glucose 87 Result Comment: The [place] Diabetes Association (ADA) provides guidance for cutoff values for fasting glucose and random glucose. The ADA defines fasting as no caloric intake for at least 8 hours. Fas ting plasma glucose results between 100 to 125 mg/dL indicate increased risk for diabetes (prediabetes). Fasting plasma glucose results greater than or equal to 126 mg/dL meet the criteria for diagnosis of diabetes. In the absence of unequivocal hyperglycemia, results should be confirmed by repeat testing. In a patient with classic symptoms of hyperglycemia or hyperglycemic crisis, random plasma glucose results greater than or equal to 200 mg/dL meet the criteria for diagnosis of diabetes. Reference: Standards of Medical Care in Diabetes 2016, [place] Diabetes [employer]. Diabetes Care. 2016.39(Suppl 1). LAB BUN 7-21 mg/dL BUN High 40 LAB CRET 0.58-0.96 mg/dL Creatinine High 1.65 LAB NA 136-144 mmol/L Sodium 139 LAB K 3.7-5.1 mmol/L Potassium 4.1 LAB CL 97-105 mmol/L Chloride 103 LAB CO2 22-30 mmol/L CO2 23 LAB AGAP 9-18 mmol/L Anion Gap 13 LAB GFRAA eGFR- Amer. 41 LAB GFRNAA . eGFR-All Other Races 34 Result Comment: eGFR (Estimated GFR) Units of measure: mL/min/1.73 meters squared eGFR is derived from the reexpressed MDRD Study equation using the following parameters: serum creatinine, age, gender and race. The creatinine assay has been calibrated to be traceable to IDMS. An eGFR <60 mL/min/1.73m2 for >3 months is consistent with chronic kidney disease. Refer to KDOQI guidelines for clinical interpretation. In patients with unstable renal function, e.g. those with acute kidney injury, the eGFR may not accurately reflect actual GFR. Performed By: #### PTHI, RFP, VITD, BKQUAN #### [facility] [address] [id number] VITAMIN D 25 HYDROXY Collected: 06/16/2018 Status: F Source: [place] 9:49 [facility] REPOSITORY TYPE CODE TESTS RESULT OUT OF REFERENCE UNITS RANGE LAB VITD 31.0-80.0 ng/mL Vitamin D 25 35.0 Hydroxy Result Comment: Classification of 25 [place] Vitamin D status: Insufficiency/Moderate Deficiency: < or = 30 ng/mL Sufficiency/Optimal Levels: 31 to 80 ng/mL Toxicity: > 100 ng/mL Test performed by chemiluminescent immunoassay. Performed By: #### PTHI, RFP, VITD, BKQUAN #### [facility] [address] [place] [address] BK VIRUS PCR,QUANT,P Collected: 06/16/2018 Status: F Source: [place] 9:49 [facility] REPOSITORY TYPE CODE TESTS RESULT OUT OF REFERENCE UNITS RANGE LAB BKVDNA copies/mL BK Negative for Virus DNA BK virus DNA QN PCR by PCR Result Comment: Reference Range: Negative for BK virus DNA The Linear Range of this assay is 500 copies/mL to 5,000,000 copies/mL. This test was developed and its performance characteristics determined by [facility]'s [facility] [place] ([facility]). It has not been cleared or approved by the FDA. [facility] is regulated under CLIA as qualified to perform high-complexity testing. This test is used for clinical purposes. It should not be regarded as investigational or for research. Performed By: #### PTHI, RFP, VITD, BKQUAN #### [facility] [address] [place], [place] [address] [place] ABS GR + CBC Collected: 06/02/2018 Status: F Source: [place] 10:25 AM [facility] REPOSITORY TYPE CODE TESTS RESULT OUT OF REFERENCE UNITS RANGE LAB WWBC 3.70-11.00 k/uL Low [place] WBC 2.82 LAB WRBC 3.90-5.20 m/uL Low [place] RBC 3.43 LAB WHGB 11.5-15.5 g/dL Low [place] Hemoglobin 10.2 LAB WHCT 36.0-46.0 % Low [place] Hematocrit 31.3 LAB WMCV 80.0-100.0 fL [place] MCV 91.3 LAB WMCH 26.0-34.0 pg [place] MCH 29.7 LAB WMCHC 30.5-36.0 g/dL [place] MCHC 32.6 LAB WRDW 11.5-15.0 % [place] RDW 12.9 LAB WPLT 150-400 k/uL Low [place] Platelet Cnt 146 LAB WMPV 9.0-12.7 fL [place] MPV 9.5 Result Comment: Test performed at: [facility], [address] [place] [address] Rd[address] [place] [address]. LAB ABGRAN 1.45-7.50 k/uL Absol Gran 1.49 Count RENAL FUNCTION PANEL Collected: 06/02/2018 Status: F Source: [place] 10:25 AM [facility] REPOSITORY TYPE CODE TESTS RESULT OUT OF REFERENCE UNITS RANGE LAB ALB 3.9-4.9 g/dL Albumin 4.7 LAB CA 8.5-10.2 mg/dL Calcium, Total 10.0 LAB PHOS 2.7-4.8 mg/dL Phosphorus 4.2 LAB GLU 74-99 mg/dL Glucose 83 Result Comment: The [place] Diabetes Association (ADA) provides guidance for cutoff values for fasting glucose and random glucose. The ADA defines fasting as no caloric intake for at least 8 hours. Fas ting plasma glucose results between 100 to 125 mg/dL indicate increased risk for diabetes (prediabetes). Fasting plasma glucose results greater than or equal to 126 mg/dL meet the criteria for diagnosis of diabetes. In the absence of unequivocal hyperglycemia, results should be confirmed by repeat testing. In a patient with classic symptoms of hyperglycemia or hyperglycemic crisis, random plasma glucose results greater than or equal to 200 mg/dL meet the criteria for diagnosis of diabetes. Reference: Standards of Medical Care in Diabetes 2016, [place] Diabetes [employer]. Diabetes Care. 2016.39(Suppl 1). LAB BUN 7-21 mg/dL BUN High 34 LAB CRET 0.58-0.96 mg/dL Creatinine High 1.54 LAB NA 136-144 mmol/L Sodium 141 LAB K 3.7-5.1 mmol/L Potassium 4.7 LAB CL 97-105 mmol/L Chloride High 107 LAB CO2 22-30 mmol/L Low CO2 20 LAB AGAP 9-18 mmol/L Anion Gap 14 LAB GFRAA eGFR- Amer. 44 LAB GFRNAA . eGFR-All Other Races 37 Result Comment: eGFR (Estimated GFR) Units of measure: mL/min/1.73 meters squared eGFR is derived from the reexpressed MDRD Study equation using the following parameters: serum creatinine, age, gender and race. The creatinine assay has been calibrated to be traceable to IDMS. An eGFR <60 mL/min/1.73m2 for >3 months is consistent with chronic kidney disease. Refer to KDOQI guidelines for clinical interpretation. In patients with unstable renal function, e.g. those with acute kidney injury, the eGFR may not accurately reflect actual GFR. Performed By: #### RFP, BKQUAN #### [facility] [address] [place], [place] [address] BK VIRUS PCR,QUANT,P Collected: 06/02/2018 Status: F Source: [place] 10:25 AM [facility] REPOSITORY TYPE CODE TESTS RESULT OUT OF REFERENCE UNITS RANGE LAB BKVDNA copies/mL BK Negative for Virus DNA BK virus DNA QN PCR by PCR Result Comment: Reference Range: Negative for BK virus DNA The Linear Range of this assay is 500 copies/mL to 5,000,000 copies/mL. This test was developed and its performance characteristics determined by [facility] [place] ([facility]). It has not been cleared or approved by the FDA. [facility] is regulated under CLIA as qualified to perform high-complexity testing. This test is used for clinical purposes. It should not be regarded as investigational or for research. Performed By: #### RFP, BKQUAN #### [facility] [address] [place], [place] [address] TACROLIMUS / FK506 Collected: 06/02/2018 Status: F Source: [place] 10:25 AM [facility] REPOSITORY TYPE CODE TESTS RESULT OUT OF REFERENCE UNITS RANGE LAB FK506 5.0-20.0 ng/mL Tacrolimus / 5.0 FK506 Result Comment: These reference ranges are provided as a general recommendation. Individualized target levels for a given patient will depend on many factors (including the type of organ transplant, ti me since transplantation, concurrent medications, and other clinical factors), and should be assessed by those health care providers experienced in the management of immunosuppression. Reference ranges and high/low indicator flags are provided as general guidelines only. The treating physician must determine appropriate target levels/dosing based on the specific clinical situation. Test performed by chemiluminescent immunoassay using famPlus. Performed By: #### FK506 #### [id number] [place], [place] [address] [place] ABS GR + CBC Collected: 05/21/2018 Status: F Source: [place] 10:12 AM [facility] REPOSITORY TYPE CODE TESTS RESULT OUT OF REFERENCE UNITS RANGE LAB WWBC 3.70-11.00 k/uL [place] WBC 3.79 LAB WRBC 3.90-5.20 m/uL Low [place] RBC 3.37 LAB WHGB 11.5-15.5 g/dL Low [place] Hemoglobin 10.1 LAB WHCT 36.0-46.0 % Low [place] Hematocrit 31.1 LAB WMCV 80.0-100.0 fL [place] MCV 92.3 LAB WMCH 26.0-34.0 pg [place] MCH 30.0 LAB WMCHC 30.5-36.0 g/dL [place] MCHC 32.5 LAB WRDW 11.5-15.0 % [place] RDW 13.6 LAB WPLT 150-400 k/uL Low [place] Platelet Cnt 145 LAB WMPV 9.0-12.7 fL [place] MPV 9.7 Result Comment: Test performed at: [facility] [place], [address] [place] [address]. LAB ABGRAN 1.45-7.50 k/uL Absol Gran 1.77 Count RENAL FUNCTION PANEL Collected: 05/21/2018 Status: F Source: [place] 10:10 AM [facility] REPOSITORY TYPE CODE TESTS RESULT OUT OF REFERENCE UNITS RANGE LAB ALB 3.9-4.9 g/dL Albumin 4.6 LAB CA 8.5-10.2 mg/dL Calcium, Total 9.5 LAB PHOS 2.7-4.8 mg/dL Phosphorus 3.7 LAB GLU 74-99 mg/dL Glucose 81 Result Comment: The [place] Diabetes Association (ADA) provides guidance for cutoff values for fasting glucose and random glucose. The ADA defines fasting as no caloric intake for at least 8 hours. Fas ting plasma glucose results between 100 to 125 mg/dL indicate increased risk for diabetes (prediabetes). Fasting plasma glucose results greater than or equal to 126 mg/dL meet the criteria for diagnosis of diabetes. In the absence of unequivocal hyperglycemia, results should be confirmed by repeat testing. In a patient with classic symptoms of hyperglycemia or hyperglycemic crisis, random plasma glucose results greater than or equal to 200 mg/dL meet the criteria for diagnosis of diabetes. Reference: Standards of Medical Care in Diabetes 2016, [place] [employer]. Diabetes Care. 2016.39(Suppl 1). LAB BUN 7-21 mg/dL BUN High 36 LAB CRET 0.58-0.96 mg/dL Creatinine High 1.66 LAB NA 136-144 mmol/L Sodium 143 LAB K 3.7-5.1 mmol/L Potassium 4.0 LAB CL 97-105 mmol/L Chloride High 107 LAB CO2 22-30 mmol/L Low CO2 21 LAB AGAP 9-18 mmol/L Anion Gap 15 LAB GFRAA eGFR- Amer. 41 LAB GFRNAA . eGFR-All Other Races 34 Result Comment: eGFR (Estimated GFR) Units of measure: mL/min/1.73 meters squared eGFR is derived from the reexpressed MDRD Study equation using the following parameters: serum creatinine, age, gender and race. The creatinine assay has been calibrated to be traceable to IDMS. An eGFR <60 mL/min/1.73m2 for >3 months is consistent with chronic kidney disease. Refer to KDOQI guidelines for clinical interpretation. In patients with unstable renal function, e.g. those with acute kidney injury, the eGFR may not accurately reflect actual GFR. Performed By: #### RFP, BKQUAN #### [facility] [address], [place] [address] BK VIRUS PCR,QUANT,P Collected: 05/21/2018 Status: F Source: [place] 10:10 AM [facility] REPOSITORY TYPE CODE TESTS RESULT OUT OF REFERENCE UNITS RANGE LAB BKVDNA copies/mL BK Negative for Virus DNA BK virus DNA QN PCR by PCR Result Comment: Reference Range: Negative for BK virus DNA The Linear Range of this assay is 500 copies/mL to 5,000,000 copies/mL. This test was developed and its performance characteristics determined by [facility]'s [facility]ology [facility] [place] ([facility] It has not been cleared or approved by the FDA. -[facility] is regulated under CLIA as qualified to perform high-complexity testing. This test is used for clinical purposes. It should not be regarded as investigational or for research. Performed By: #### RFP, BKQUAN #### [facility], [place] [address] TACROLIMUS / FK506 Collected: 05/21/2018 Status: F Source: [place] 10:10 [facility] REPOSITORY TYPE CODE TESTS RESULT OUT OF REFERENCE UNITS RANGE LAB FK506 5.0-20.0 ng/mL Tacrolimus / 5.9 FK506 Result Comment: These reference ranges are provided as a general recommendation. Individualized target levels for a given patient will depend on many factors (including the type of organ transplant, ti me since transplantation, concurrent medications, and other clinical factors), and should be assessed by those health care providers experienced in the management of immunosuppression. Reference ranges and high/low indicator flags are provided as general guidelines only. The treating physician must determine appropriate target levels/dosing based on the specific clinical situation. Test performed by chemiluminescent immunoassay using famPlus. Performed By: #### [id number] #### [facility] [address], [place] [address] [place]ULCE ABS GR + CBC Collected: 05/05/2018 Status: F Source: [place] 11:20 AM [facility] REPOSITORY TYPE CODE TESTS RESULT OUT OF REFERENCE UNITS RANGE LAB WWBC 3.70-11.00 k/uL [place] WBC 4.89 LAB WRBC 3.90-5.20 m/uL Low [place] RBC 3.51 LAB WHGB 11.5-15.5 g/dL Low [place] Hemoglobin 10.4 LAB WHCT 36.0-46.0 % Low [place] Hematocrit 32.1 LAB WMCV 80.0-100.0 fL [place] MCV 91.5 LAB WMCH 26.0-34.0 pg [place] MCH 29.6 LAB WMCHC 30.5-36.0 g/dL [place] MCHC 32.4 LAB WRDW 11.5-15.0 % [place] RDW 14.0 LAB WPLT 150-400 k/uL Low [place] Platelet Cnt 148 LAB WMPV 9.0-12.7 fL [place] MPV 9.0 Result Comment: Test performed at: [facility], [address] [place] [address]., [place] [address]. LAB ABGRAN 1.45-7.50 k/uL Absol Gran 3.20 Count TACROLIMUS / FK506 Collected: 05/05/2018 Status: F Source: [place] 11:20 AM [facility] REPOSITORY TYPE CODE TESTS RESULT OUT OF REFERENCE UNITS RANGE LAB FK506 5.0-20.0 ng/mL Low Tacrolimus / 2.7 FK506 Result Comment: These reference ranges are provided as a general recommendation. Individualized target levels for a given patient will depend on many factors (including the type of organ transplant, ti me since transplantation, concurrent medications, and other clinical factors), and should be assessed by those health care providers experienced in the management of immunosuppression. Reference ranges and high/low indicator flags are provided as general guidelines only. The treating physician must determine appropriate target levels/dosing based on the specific clinical situation. Test performed by chemiluminescent immunoassay using famPlus. Performed By: #### FK506 #### [facility] [address] [place], [place] [address] RENAL FUNCTION PANEL Collected: 05/05/2018 Status: F Source: [place] 11:20 AM [facility] REPOSITORY TYPE CODE TESTS RESULT OUT OF REFERENCE UNITS RANGE LAB ALB 3.9-4.9 g/dL Albumin 4.7 LAB CA 8.5-10.2 mg/dL Calcium, Total 9.8 LAB PHOS 2.7-4.8 mg/dL Phosphorus 3.6 LAB GLU 74-99 mg/dL Glucose High 106 Result Comment: The [place] Diabetes [employer] (ADA) provides guidance for cutoff values for fasting glucose and random glucose. The ADA defines fasting as no caloric intake for at least 8 hours. Fas ting plasma glucose results between 100 to 125 mg/dL indicate increased risk for diabetes (prediabetes). Fasting plasma glucose results greater than or equal to 126 mg/dL meet the criteria for diagnosis of diabetes. In the absence of unequivocal hyperglycemia, results should be confirmed by repeat testing. In a patient with classic symptoms of hyperglycemia or hyperglycemic crisis, random plasma glucose results greater than or equal to 200 mg/dL meet the criteria for diagnosis of diabetes. Reference: Standards of Medical Care in Diabetes 2016, [place] [employer] Association. Diabetes Care. 2016.39(Suppl 1). LAB BUN 7-21 mg/dL BUN High 32 LAB CRET 0.58-0.96 mg/dL Creatinine High 1.66 LAB NA 136-144 mmol/L Sodium 143 LAB K 3.7-5.1 mmol/L Potassium 4.2 LAB CL 97-105 mmol/L Chloride High 107 LAB CO2 22-30 mmol/L Low CO2 21 LAB AGAP 9-18 mmol/L Anion Gap 15 LAB GFRAA eGFR- Amer. 41 LAB GFRNAA . eGFR-All Other Races 34 Result Comment: eGFR (Estimated GFR) Units of measure: mL/min/1.73 meters squared eGFR is derived from the reexpressed MDRD Study equation using the following parameters: serum creatinine, age, gender and race. The creatinine assay has been calibrated to be traceable to IDMS. An eGFR <60 mL/min/1.73m2 for >3 months is consistent with chronic kidney disease. Refer to KDOQI guidelines for clinical interpretation. In patients with unstable renal function, e.g. those with acute kidney injury, the eGFR may not accurately reflect actual GFR. Performed By: #### RFP, BKQUAN #### [facility] [address] [place], [place] [address] BK VIRUS PCR,QUANT,P Collected: 05/05/2018 Status: F Source: [place] 11:20 AM [facility] REPOSITORY TYPE CODE TESTS RESULT OUT OF REFERENCE UNITS RANGE LAB BKVDNA copies/mL BK Negative for Virus DNA BK virus DNA QN PCR by PCR Result Comment: Reference Range: Negative for BK virus DNA The Linear Range of this assay is 500 copies/mL to 5,000,000 copies/mL. This test was developed and its performance characteristics determined by [facility]'s [facility] Pathology and Laboratory [facility] [place] ([facility]). It has not been cleared or approved by the FDA. -[facility] is regulated under CLIA as qualified to perform high-complexity testing. This test is used for clinical purposes. It should not be regarded as investigational or for research. Performed By: #### RFP, BKQUAN #### [facility] [address] [place] [id number] PROGRESS Observed: 04/14/2018 Status: COMPLETED Source: [place] 12:34 PM [facility] REPOSITORY HNO ID: [id number] Author: Gallito Charles Service: (none) Author Type: Physician Type: Progress Notes Filed: 04/14/2018 12:35 PM Note Text: I discussed the management of with the fellow. I have reviewed the fellow's note and agree with the documented findings and plan of care. Sravanthi Charles MD PROGRESS Observed: 04/14/2018 Status: COMPLETED Source: [place] 12:14 PM [facility] REPOSITORY HNO ID: [id number] Author: Lyudmila Bernstein (Fel) Service: (none) Author Type: Fellow Type: Progress Notes Filed: 04/14/2018 12:35 PM Note Text: April 14, 2018 HPI: Ms Sauceda returns for MRI review of her left knee. She reports no change in symptoms since last visit. Continues to have several painful locking episodes. PAIN EVALUATION 04/14/2018 Pain Score: 10 Pain Location: Knee-Left Description: Aching;Dull;Sore;Sharp Pain when the knee locks up. Duration Units: Months Frequency: Intermittent Intervention: Medication;Reposition;Relaxation Past Medical History: 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 - Corpus luteum cyst or hematoma left ovary mass laparascopically biopsied 2002; benign corpus luteum - Cough jeanna induced - Cystitis x1 summer 2004 (presented with fever) - Fracture Childhood, L arm; states she 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 - Hyperlipidemia 02/22/2015 - Legionnaires' disease (HCC) 1996 during SLE flare, serum antigen +, but urine antigen negative; treated anyway - Malignant neoplasm of other specified sites of uterine adnexa 2001 open resection right ovary; suspicious lymphadenopathy and PET results led to lap node sampling end of 2001 with negative results; no chemo/XRT; no PET or CT scans for awhile - Nephritis and nephropathy, not specified as acute or chronic, with other specified pathological lesion in kidney, in diseases classified elsewhere 1996 nephrotic/nephritic, biopsy Class III treated wt steroids; biopsy 1997 Class Vb; ? Class IV (received CTX); 2000 and 2001 (? 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; quiescent - Type II or unspecified type diabetes mellitus without mention of complication, not stated as uncontrolled steroid induced; also had probably steroid psychosis with high dose - Unspecified hypertensive heart and kidney disease without heart failure and with chronic kidney disease stage V or end stage renal disease(404.92) - Unspecified hypothyroidism Family History: FAMILY HISTORY Problem Relation Age of Onset - Hypertension Mother - Hypertension Father - Diabetes Father - Ischemic Heart Disease Father - Stroke Father Social History: unchanged Medications: levothyroxine (SYNTHROID) 50 mcg tablet TAKE 1 TABLET DAILY predniSONE (DELTASONE) 10 mg tablet TAKE DIRECTED DARBEPOETIN MARY KAY IN ALBUMN ODELL (ARANESP INJECTION) by INJECTION(UNSPECIFIED PARENTERAL ROUTES) route. furosemide (LASIX) 20 mg tablet TAKE 1 TABLET NEEDED FOR EDEMA 0.9 % SODIUM CHLORIDE (0.9% NACL) Access implanted vascular access device (IVAD) as needed for flush, blood draw or treatment.Flush IVAD with 10-20 mL NS every 4 weeks and PRN when IVAD not in use. heparin 100 unit/mL injection Access implanted vascular access device (IVAD) as needed for flush, blood draw or treatment. Before de-accessing port, flush with 10-20ml normal saline and follow with 5 mL heparin (100 units/mL) (if no heparin allergy). De-access port on treatment completion. tacrolimus (PROGRAF) 1 mg capsule TAKE 2 MG IN THE AM, 1MG IN THE PM ON 12 HOUR SCHEDULE. ICD-10: Z94.0 carvedilol (COREG) 12.5 mg tablet TAKE 2 TABLETS TWICE A DAY simvastatin (ZOCOR) 20 mg tablet TAKE 1 TABLET DAILY Amoxicillin 500 mg tablet Take four (4) tablets one hour before dental procedure. amLODIPine (NORVASC) 5 mg tablet TAKE 1 TABLET DAILY allopurinol (ZYLOPRIM) 100 mg tablet Take 2 tablets by mouth once daily. mycophenolate mofetil (CELLCEPT) 250 mg capsule TAKE 2 CAPSULES BY MOUTH TWICE DAILY. Z94.0 famotidine (PEPCID) 20 mg tablet Take 2 tablets by mouth twice daily. 0.9% NaCl Access implanted vascular access device (IVAD) as needed for flush, blood draw or treatment.Flush IVAD with 10-20 mL NS every 4 weeks and PRN when IVAD not in use. heparin 100 unit/mL syrg Access implanted vascular access device (IVAD) as needed for flush, blood draw or treatment. Before de-accessing port, flush with 10-20ml normal saline and follow with 5 mL heparin (100 units/mL) (if no heparin allergy). De-access port on treatment completion. Biotin 10,000 mcg cap Take 1 capsule by mouth once daily. acetaminophen (TYLENOL) 500 mg tablet Take 1,000 mg by mouth every 6 hours as needed. alendronate (FOSAMAX) 35 mg tablet Take 1 tablet by mouth once each week. heparin 100 unit/mL syrg NURSING USE ONLY: USE FOR IVAD ACCESS FLUSH. AMBULATORY/OUTPATINET: PLEASE REORDER UPON HOSPITAL DISCHARGEMay access implanted vascular access device (IVAD) as needed for treatment. Before de-accessing port, flush with 10-20ml normal saline and follow with 5 mL heparin (100 units/mL) (if no heparin allergy). 0.9% NaCl NURSING USE ONLY: USED FOR IVAD ACCESS. AMBULATORY/OUTPATIENT: PLEASE REORDER UPON HOSPITAL DISCHARGE May access implanted vascular access device (IVAD) as needed for treatment.Flush IVAD with 10-20 mL NS every 4 weeks and PRN when IVAD not in use. Ferrous Sulfate (IRON) 325 mg (65 mg iron) tablet Take 1 tablet by mouth twice daily. VANCOMYCIN HCL (VANCOMYCIN ORAL) Take by mouth. 2.5 ml QID x 14 days vancomycin (VANCOCIN) 125 mg capsule Take 1 capsule by mouth four times daily. Allergies: ALLERGIES Allergen Reactions - Sulfa (Sulfonamide * Mental Status Change Physical Exam: Leftt knee without effusion today. Continues with tenderness over the lateral joint line and lateral femoral condyle. Review of Systems: GENERAL: No weight loss, malaise or fevers MUSCULOSKELETAL: See HPI Imaging: MRI of the left knee reviewed which shows a large loose osteochondral fragment displaced anteriorly with donor site from the lateral femoral condyle. AVN again noted. 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 As her pain is primarily related to the locking episodes, she would like to proceed with just the loose body removal to see how this improves her symptoms. We will get medical clearance and get her scheduled for this accordingly. Lyudmila Bernstein MD CNOV Observed: 04/14/2018 Status: COMPLETED Source: [place] 11:45 AM [facility] REPOSITORY Office Visit (SPHTB) ASHOK SAUCEAD ([id number]) 1975 F KDR Date Time Provider Department 04/14/18 11:45 AM [facility] SPHTB During your visit today, we recorded the following information about you: Lyudmila Bernstein MD 04/14/2018 12:35 PM Signed April 14, 2018 HPI: Ms Sauceda returns for MRI review of her left knee. She reports no change in symptoms since last visit. Continues to have several painful locking episodes. PAIN EVALUATION 04/14/2018 Pain Score: 10 Pain Location: Knee-Left Description: Aching;Dull;Sore;Sharp Pain when the knee locks up. Duration Units: Months Frequency: Intermittent Intervention: Medication;Reposition;Relaxation Past Medical History: 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 - Corpus luteum cyst or hematoma left ovary mass laparascopically biopsied 2002; benign corpus luteum - Cough jeanna induced - Cystitis x1 summer 2004 (presented with fever) - Fracture Childhood, L arm; states she 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 - Hyperlipidemia 02/22/2015 - Legionnaires' disease (HCC) 1996 during SLE flare, serum antigen +, but urine antigen negative; treated anyway - Malignant neoplasm of other specified sites of uterine adnexa 2001 open resection right ovary; suspicious lymphadenopathy and PET results led to lap node sampling end of 2001 with negative results; no chemo/XRT; no PET or CT scans for awhile - Nephritis and nephropathy, not specified as acute or chronic, with other specified pathological lesion in kidney, in diseases classified elsewhere 1996 nephrotic/nephritic, biopsy Class III treated wt steroids; biopsy 1997 Class Vb; ? Class IV (received CTX); 2000 and 2001 (? 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; quiescent - Type II or unspecified type diabetes mellitus without mention of complication, not stated as uncontrolled steroid induced; also had probably steroid psychosis with high dose - Unspecified hypertensive heart and kidney disease without heart failure and with chronic kidney disease stage V or end stage renal disease(404.92) - Unspecified hypothyroidism Family History: FAMILY HISTORY Problem Relation Age of Onset - Hypertension Mother - Hypertension Father - Diabetes Father - Ischemic Heart Disease Father - Stroke Father Social History: unchanged Medications: levothyroxine (SYNTHROID) 50 mcg tablet TAKE 1 TABLET DAILY predniSONE (DELTASONE) 10 mg tablet TAKE DIRECTED DARBEPOETIN MARY KAY IN ALBUMN ODELL (ARANESP INJECTION) by INJECTION(UNSPECIFIED PARENTERAL ROUTES) route. furosemide (LASIX) 20 mg tablet TAKE 1 TABLET NEEDED FOR EDEMA 0.9 % SODIUM CHLORIDE (0.9% NACL) Access implanted vascular access device (IVAD) as needed for flush, blood draw or treatment.Flush IVAD with 10-20 mL NS every 4 weeks and PRN when IVAD not in use. heparin 100 unit/mL injection Access implanted vascular access device (IVAD) as needed for flush, blood draw or treatment. Before de-accessing port, flush with 10-20ml normal saline and follow with 5 mL heparin (100 units/mL) (if no heparin allergy). De-access port on treatment completion. tacrolimus (PROGRAF) 1 mg capsule TAKE 2 MG IN THE AM, 1MG IN THE PM ON 12 HOUR SCHEDULE. ICD-10: Z94.0 carvedilol (COREG) 12.5 mg tablet TAKE 2 TABLETS TWICE A DAY simvastatin (ZOCOR) 20 mg tablet TAKE 1 TABLET DAILY Amoxicillin 500 mg tablet Take four (4) tablets one hour before dental procedure. amLODIPine (NORVASC) 5 mg tablet TAKE 1 TABLET DAILY allopurinol (ZYLOPRIM) 100 mg tablet Take 2 tablets by mouth once daily. mycophenolate mofetil (CELLCEPT) 250 mg capsule TAKE 2 CAPSULES BY MOUTH TWICE DAILY. Z94.0 famotidine (PEPCID) 20 mg tablet Take 2 tablets by mouth twice daily. 0.9% NaCl Access implanted vascular access device (IVAD) as needed for flush, blood draw or treatment.Flush IVAD with 10-20 mL NS every 4 weeks and PRN when IVAD not in use. heparin 100 unit/mL syrg Access implanted vascular access device (IVAD) as needed for flush, blood draw or treatment. Before de-accessing port, flush with 10-20ml normal saline and follow with 5 mL heparin (100 units/mL) (if no heparin allergy). De-access port on treatment completion. Biotin 10,000 mcg cap Take 1 capsule by mouth once daily. acetaminophen (TYLENOL) 500 mg tablet Take 1,000 mg by mouth every 6 hours as needed. alendronate (FOSAMAX) 35 mg tablet Take 1 tablet by mouth once each week. heparin 100 unit/mL syrg NURSING USE ONLY: USE FOR IVAD ACCESS FLUSH. AMBULATORY/OUTPATINET: PLEASE REORDER UPON HOSPITAL DISCHARGEMay access implanted vascular access device (IVAD) as needed for treatment. Before de-accessing port, flush with 10-20ml normal saline and follow with 5 mL heparin (100 units/mL) (if no heparin allergy). 0.9% NaCl NURSING USE ONLY: USED FOR IVAD ACCESS. AMBULATORY/OUTPATIENT: PLEASE REORDER UPON HOSPITAL DISCHARGE May access implanted vascular access device (IVAD) as needed for treatment.Flush IVAD with 10-20 mL NS every 4 weeks and PRN when IVAD not in use. Ferrous Sulfate (IRON) 325 mg (65 mg iron) tablet Take 1 tablet by mouth twice daily. VANCOMYCIN HCL (VANCOMYCIN ORAL) Take by mouth. 2.5 ml QID x 14 days vancomycin (VANCOCIN) 125 mg capsule Take 1 capsule by mouth four times daily. Allergies: ALLERGIES Allergen Reactions - Sulfa (Sulfonamide * Mental Status Change Physical Exam: Leftt knee without effusion today. Continues with tenderness over the lateral joint line and lateral femoral condyle. Review of Systems: GENERAL: No weight loss, malaise or fevers MUSCULOSKELETAL: See HPI Imaging: MRI of the left knee reviewed which shows a large loose osteochondral fragment displaced anteriorly with donor site from the lateral femoral condyle. AVN again noted. 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 As her pain is primarily related to the locking episodes, she would like to proceed with just the loose body removal to see how this improves her symptoms. We will get medical clearance and get her scheduled for this accordingly. MD Gallito Barreto MD 04/14/2018 12:35 PM Signed I discussed the management of with the fellow. I have reviewed the fellow's note and agree with the documented findings and plan of care. Sravanthi Charles MD Referring Provider: SCHUYLER DONOVAN ([facility]) [[id number]] Allergies As of Date: 04/14/2018 Noted Allergy Reaction SULFA (SULFONAMIDE ANTIBIOTICS) 10/16/2005 1 - Mental Status Change Date Reviewed: 04/14/2018 Reviewed by: Cristal Montenegro Ma - Fully Assessed Reason for Visit: Follow Up For [3040] Cmt: Left knee follow up. Pain is a 10 out of ten when her knee locks up. Primary Visit Diagnosis:Osteonecrosis of left knee region (HCC) [M87.9] Prescriptions as of 04/14/2018 Sig: LEVOTHYROXINE 50 MCG TABLET TAKE 1 TABLET DAILY PREDNISONE 10 MG TABLET TAKE DIRECTED ARANESP INJECTION by INJECTION(UNSPECIFIED PARE* FUROSEMIDE 20 MG TABLET TAKE 1 TABLET NEEDED FOR E* SODIUM CHLORIDE 0.9% FLUSH Access implanted vascular acc* HEPARIN, PORCINE (PF) 100 UNI* Access implanted vascular acc* TACROLIMUS 1 MG CAPSULE TAKE 2 MG IN THE AM, 1MG IN T* CARVEDILOL 12.5 MG TABLET TAKE 2 TABLETS TWICE A DAY SIMVASTATIN 20 MG TABLET TAKE 1 TABLET DAILY AMOXICILLIN 500 MG TABLET Take four (4) tablets one ricky* AMLODIPINE 5 MG TABLET TAKE 1 TABLET DAILY ALLOPURINOL 100 MG TABLET Take 2 tablets by mouth once * MYCOPHENOLATE MOFETIL 250 MG * TAKE 2 CAPSULES BY MOUTH TWIC* FAMOTIDINE 20 MG TABLET Take 2 tablets by mouth twice* SODIUM CHLORIDE 0.9% FLUSH Access implanted vascular acc* HEPARIN LOCK FLUSH (PORCINE) * Access implanted vascular acc* BIOTIN 10,000 MCG CAPSULE Take 1 capsule by mouth once * ACETAMINOPHEN 500 MG TABLET Take 1,000 mg by mouth every * ALENDRONATE 35 MG TABLET Take 1 tablet by mouth once e* HEPARIN LOCK FLUSH (PORCINE) * NURSING USE ONLY: USE FOR I* SODIUM CHLORIDE 0.9% FLUSH NURSING USE ONLY: USED FOR * FERROUS SULFATE 325 MG (65 MG* Take 1 tablet by mouth twice * VANCOMYCIN ORAL Take by mouth. 2.5 ml QID x * VANCOMYCIN 125 MG CAPSULE Take 1 capsule by mouth four * Problem List As Of Date 04/14/2018 Noted Resolved End stage renal disease [N18.6] INVALID FOR*09/28/2013 NEPHRITIS NOS IN OTHER DIS [N05.8] INVALID FOR* Systemic lupus erythematosus [M32.9] Priority: Mild More... DIABETES MELLITUS TYPE II-UNCOMPL [E11.9] More... Legionnaires' disease [A48.1] 09/28/2013 More... MALIG SATISH ADNEXA NEC [C57.4] More... Acquired hemolytic anemia, unspecified [D59.9] More... Thrombocytopenia, unspecified [D69.6] More... 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 Cough [R05] 09/28/2013 More... CYSTITIS [595] More... Kidney replaced by transplant [Z94.0] INVALID FOR* Priority: A More... Unspecified disease of white blood cells [D72.9]INVALID FOR*01/13/2011 Anemia, unspecified [D64.9] INVALID FOR*11/21/2011 Neutropenia, unspecified [D70.9] INVALID FOR* Need for prophylactic immunotherapy [Z29.8] INVALID FOR*09/28/2013 Anemia in chronic renal disease [N18.9, D63.1] INVALID FOR* More... Urinary tract infection, E. 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 Hypertension [I10] INVALID FOR* Priority: B More... Hyperlipidemia [E78.5] INVALID FOR* Priority: C More... UTI (lower urinary tract infection) [N39.0] INVALID FOR*02/28/2015 Priority: Severe More... Flu-like symptoms [R68.89] INVALID FOR*02/28/2015 Priority: Moderate More... DVT prophylaxis [[id number]] INVALID FOR*02/28/2015 Priority: D More... Encounter Status:Closed by GALLITO CHARLES MD on 04/14/18 PROGRESS Observed: 04/13/2018 Status: COMPLETED Source: [place] 10:22 AM [facility] REPOSITORY HNO ID: [id number] Author: Lisset Beckford Service: (none) Author Type: (none) Type: Progress Notes Filed: 04/13/2018 10:23 AM Note Text: Radiology Service Progress Note PATIENT NAME: Ashok Sauceda DATE OF SERVICE: April 13, 2018 TIME: 10:23 AM PATIENT IDENTITY VERIFICATION COMPLETED USING TWO (2) METHODS: Patient confirmed name verbally and Date of . PATIENT GENDER DATA: Female. status: : No status: NO. PATIENT RELEVANT IMPLANT DATA REVIEWED: Yes RADIOLOGY DEPARTMENT: MR; Exam(s) Completed: Lower MSK: Knee, left PERIPHERAL IV DATA: Not applicable SIGNED BY: Lisset Beckford April 13, 2018 10:23 AM MRI KNEE WO IVCON Observed: 04/13/2018 Status: F Source: [facility] 10:10 AM [facility] REPOSITORY * * *Final Report* * * DATE OF EXAM: Apr 13 2018 10:10AM [facility] 0212 - MRI KNEE WO IVCON LT / PROCEDURE REASON: Osteomyelitis, unspecified * * * * Physician Interpretation * * * * EXAMINATION: MRI LEFT KNEE WITHOUT CONTRAST CLINICAL HISTORY: 42-year-old female with history of long-standing corticosteroid use with chronic left knee pain. TECHNIQUE: Routine non-contrast MRI of the knee COMPARISON: Left knee radiographs 03/29/2018 RESULT: MENISCI: Medial Meniscus: Degenerative changes without tear Lateral Meniscus: Degenerative changes without a tear in the anterior horn, body and posterior horn LIGAMENTS: ACL: Intact PCL: Intact MCL: Intact LCL Complex: Intact CARTILAGE: Medial Femoral Condyle: Normal Medial Tibial Plateau: Small area(s) of low grade (<50% thickness) partial thickness cartilage loss/fissuring Lateral Femoral Condyle: Diffuse full thickness cartilage loss/fissuring with osteochondral defects. This includes a small 8 mm osteochondral defect weightbearing portion of the condyle with an in situ fragment. Larger remote appearing osteochondral defect involving the posterior aspect of the lateral femoral condyle. Suspected displaced osteochondral fragment situated anterior to the anterior horn lateral meniscus measuring approximately 1.4 x 1.1 x 0.2 cm. This is visible on the 03/29/2018 radiographs. Lateral Tibial Plateau: Normal Patella: Normal Trochlea: Normal TENDONS: The distal quadriceps and patellar tendons are intact. The popliteus tendon is intact. BONES AND MARROW: Bone infarcts distal femur extending to involve the subchondral plate of the medial femoral condyle and lateral trochlea measures. MUSCLES: Muscle bulk and signal intensity are normal. JOINT FLUID AND SYNOVIUM: Small joint effusion. No synovitis. Small Arango's cyst. OTHER: Displaced osteochondral fragment situated anterior to the anterior horn lateral meniscus as mentioned earlier in report. IMPRESSION: HIGH-GRADE CHONDRAL LOSS LATERAL FEMORAL CONDYLE WITH ASSOCIATED OSTEOCHONDRAL DEFECTS INCLUDING DISPLACED OSTEOCHONDRAL FRAGMENT DESCRIBED INTRAMEDULLARY BONE INFARCTS DISTAL DISTAL FEMUR WITH EXTENSION TO THE SUBCHONDRAL BONE PLATE OF THE LATERAL TROCHLEA AND MEDIAL FEMORAL CONDYLE. Molding And Trim Installer: PSCB Transcribe Date/Time: Apr 13 2018 10:59A Dictated by : NERI RODRÍGUEZ DO This examination was interpreted and the report reviewed and electronically signed by: VIRGINIA FUNG MD on Apr 13 2018 1:12PM EST [id number] [place] ABS GR + CBC Collected: 04/07/2018 Status: F Source: [place] 10:21 AM [facility] REPOSITORY TYPE CODE TESTS RESULT OUT OF REFERENCE UNITS RANGE LAB WWBC 3.70-11.00 k/uL [place] WBC 4.47 LAB WRBC 3.90-5.20 m/uL Low [place] RBC 3.57 LAB WHGB 11.5-15.5 g/dL Low [place] Hemoglobin 10.5 LAB WHCT 36.0-46.0 % Low [place] Hematocrit 31.8 LAB WMCV 80.0-100.0 fL [place] MCV 89.1 LAB WMCH 26.0-34.0 pg [place] MCH 29.4 LAB WMCHC 30.5-36.0 g/dL [place] MCHC 33.0 LAB WRDW 11.5-15.0 % [place] RDW 14.1 LAB WPLT 150-400 k/uL [place] Platelet Cnt 154 LAB WMPV 9.0-12.7 fL [place] MPV 9.4 Result Comment: Test performed at: [facility], [address] [place] [address]. LAB ABGRAN 1.45-7.50 k/uL Absol Gran 2.26 Count RENAL FUNCTION PANEL Collected: 04/07/2018 Status: F Source: [place] 10:21 AM [facility] REPOSITORY TYPE CODE TESTS RESULT OUT OF REFERENCE UNITS RANGE LAB ALB 3.9-4.9 g/dL Albumin 4.5 LAB CA 8.5-10.2 mg/dL Calcium, Total 9.1 LAB PHOS 2.7-4.8 mg/dL Phosphorus 3.5 LAB GLU 74-99 mg/dL Glucose High 108 Result Comment: The [place] Diabetes Association (ADA) provides guidance for cutoff values for fasting glucose and random glucose. The ADA defines fasting as no caloric intake for at least 8 hours. Fas ting plasma glucose results between 100 to 125 mg/dL indicate increased risk for diabetes (prediabetes). Fasting plasma glucose results greater than or equal to 126 mg/dL meet the criteria for diagnosis of diabetes. In the absence of unequivocal hyperglycemia, results should be confirmed by repeat testing. In a patient with classic symptoms of hyperglycemia or hyperglycemic crisis, random plasma glucose results greater than or equal to 200 mg/dL meet the criteria for diagnosis of diabetes. Reference: Standards of Medical Care in Diabetes 2016, [place] [employer] Association. Diabetes Care. 2016.39(Suppl 1). LAB BUN 7-21 mg/dL BUN High 39 LAB CRET 0.58-0.96 mg/dL Creatinine High 1.80 LAB NA 136-144 mmol/L Sodium 142 LAB K 3.7-5.1 mmol/L Potassium 3.9 LAB CL 97-105 mmol/L Chloride High 108 LAB CO2 22-30 mmol/L Low CO2 19 LAB AGAP 9-18 mmol/L Anion Gap 15 LAB GFRAA eGFR- Amer. 37 LAB GFRNAA . eGFR-All Other Races 31 Result Comment: eGFR (Estimated GFR) Units of measure: mL/min/1.73 meters squared eGFR is derived from the reexpressed MDRD Study equation using the following parameters: serum creatinine, age, gender and race. The creatinine assay has been calibrated to be traceable to IDMS. An eGFR <60 mL/min/1.73m2 for >3 months is consistent with chronic kidney disease. Refer to KDOQI guidelines for clinical interpretation. In patients with unstable renal function, e.g. those with acute kidney injury, the eGFR may not accurately reflect actual GFR. Performed By: #### SARA SALES #### [facility] [address] [place], [place] [address] BK VIRUS PCR,QUANT,P Collected: 04/07/2018 Status: F Source: [place] 10:21 [facility] REPOSITORY TYPE CODE TESTS RESULT OUT OF REFERENCE UNITS RANGE LAB BKVDNA copies/mL BK Negative for Virus DNA BK virus DNA QN PCR by PCR Result Comment: Reference Range: Negative for BK virus DNA The Linear Range of this assay is 500 copies/mL to 5,000,000 copies/mL. This test was developed and its performance characteristics determined by [facility] [place] ([facility]). It has not been cleared or approved by the FDA. [facility] is regulated under CLIA as qualified to perform high-complexity testing. This test is used for clinical purposes. It should not be regarded as investigational or for research. Performed By: #### RFP, BKQUAN #### [facility] [address] [place], [place] [id number] TACROLIMUS / FK506 Collected: 04/07/2018 Status: F Source: [place] 10:21 [facility] REPOSITORY TYPE CODE TESTS RESULT OUT OF REFERENCE UNITS RANGE LAB FK506 5.0-20.0 ng/mL Tacrolimus / 8.8 FK506 Result Comment: These reference ranges are provided as a general recommendation. Individualized target levels for a given patient will depend on many factors (including the type of organ transplant, ti me since transplantation, concurrent medications, and other clinical factors), and should be assessed by those health care providers experienced in the management of immunosuppression. Reference ranges and high/low indicator flags are provided as general guidelines only. The treating physician must determine appropriate target levels/dosing based on the specific clinical situation. Test performed by chemiluminescent immunoassay using Rob Nouvola. Performed By: #### FK506 #### [facility] [address] [place], [place] [id number] HEPATIC FUNCTN PANEL Collected: 04/07/2018 Status: F Source: [place] 10:21 [facility] REPOSITORY TYPE CODE TESTS RESULT OUT OF REFERENCE UNITS RANGE LAB ALB 3.9-4.9 g/dL Albumin 4.6 LAB TBIL 0.2-1.3 mg/dL Bilirubin, Total 0.3 LAB CBIL <0.2 mg/dL Bilirubin,Conjuga <0.2 thomas LAB ALKP 32-117 U/L Alkaline Phosphatase 83 LAB AST 13-35 U/L AST 17 LAB ALT 7-38 U/L ALT 13 LAB TP 6.3-8.0 g/dL Protein, Total 7.3 Performed By: #### HFP #### [facility] [address] [place], [place] [address] PROGRESS Observed: 03/29/2018 Status: COMPLETED Source: [place] 12:59 PM [facility] REPOSITORY HNO ID: [id number] Author: Gallito Charles Service: (none) Author Type: Physician Type: Progress Notes Filed: 03/29/2018 1:00 PM Note Text: I discussed the management of with the fellow. I have reviewed the fellow's note and agree with the documented findings and plan of care. Sravanthi Charles MD PROGRESS Observed: 03/29/2018 Status: COMPLETED Source: [place] 12:13 PM [facility] REPOSITORY HNO ID: [id number] Author: Lyudmila Bernstein (Serafin) Service: (none) Author Type: Fellow Type: Progress Notes Filed: 03/29/2018 1:00 PM Note Text: March 29, 2018 HPI: Ms Sauceda is a 42 year old female with a history of longstanding corticosteroid use here for evaluation of her left knee. She began having pain in the left knee about 2-3 years ago after she was standing in her kitchen and pivoted, having acute knee pain. She was seen by another physician at the time, who did x-rays and told her she had AVN. She was prescribed an wall man brace, which helped only a little. She also has significant issues with the knee catching and locking, which has at times caused her to fall. This is associated with significant pain. She reports being unable to jog or do many activities because of the knee pain and mechanical symptoms. She is here today to discuss other treatment options. PAIN EVALUATION No data found. Past Medical History: 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 - Corpus luteum cyst or hematoma left ovary mass laparascopically biopsied 2002; benign corpus luteum - Cough jeanna induced - Cystitis x1 summer 2004 (presented with fever) - Fracture Childhood, L arm; states she 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 - Hyperlipidemia 02/22/2015 - Legionnaires' disease (HCC) 1996 during SLE flare, serum antigen +, but urine antigen negative; treated anyway - Malignant neoplasm of other specified sites of uterine adnexa 2001 open resection right ovary; suspicious lymphadenopathy and PET results led to lap node sampling end of 2001 with negative results; no chemo/XRT; no PET or CT scans for awhile - Nephritis and nephropathy, not specified as acute or chronic, with other specified pathological lesion in kidney, in diseases classified elsewhere 1996 nephrotic/nephritic, biopsy Class III treated wt steroids; biopsy 1997 Class Vb; ? Class IV (received CTX); 2000 and 2001 (? 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; quiescent - Type II or unspecified type diabetes mellitus without mention of complication, not stated as uncontrolled steroid induced; also had probably steroid psychosis with high dose - Unspecified hypertensive heart and kidney disease without heart failure and with chronic kidney disease stage V or end stage renal disease(404.92) - Unspecified hypothyroidism Family History: FAMILY HISTORY Problem Relation Age of Onset - Hypertension Mother - Hypertension Father - Diabetes Father - Ischemic Heart Disease Father - Stroke Father Social History: noncontributory Medications: predniSONE (DELTASONE) 10 mg tablet TAKE DIRECTED DARBEPOETIN MARY KAY IN ALBUMN ODELL (ARANESP INJECTION) by INJECTION(UNSPECIFIED PARENTERAL ROUTES) route. furosemide (LASIX) 20 mg tablet TAKE 1 TABLET NEEDED FOR EDEMA 0.9 % SODIUM CHLORIDE (0.9% NACL) Access implanted vascular access device (IVAD) as needed for flush, blood draw or treatment.Flush IVAD with 10-20 mL NS every 4 weeks and PRN when IVAD not in use. heparin 100 unit/mL injection Access implanted vascular access device (IVAD) as needed for flush, blood draw or treatment. Before de-accessing port, flush with 10-20ml normal saline and follow with 5 mL heparin (100 units/mL) (if no heparin allergy). De-access port on treatment completion. tacrolimus (PROGRAF) 1 mg capsule TAKE 2 MG IN THE AM, 1MG IN THE PM ON 12 HOUR SCHEDULE. ICD-10: Z94.0 carvedilol (COREG) 12.5 mg tablet TAKE 2 TABLETS TWICE A DAY simvastatin (ZOCOR) 20 mg tablet TAKE 1 TABLET DAILY Amoxicillin 500 mg tablet Take four (4) tablets one hour before dental procedure. levothyroxine (SYNTHROID) 50 mcg tablet TAKE 1 TABLET DAILY amLODIPine (NORVASC) 5 mg tablet TAKE 1 TABLET DAILY allopurinol (ZYLOPRIM) 100 mg tablet Take 2 tablets by mouth once daily. VANCOMYCIN HCL (VANCOMYCIN ORAL) Take by mouth. 2.5 ml QID x 14 days vancomycin (VANCOCIN) 125 mg capsule Take 1 capsule by mouth four times daily. mycophenolate mofetil (CELLCEPT) 250 mg capsule TAKE 2 CAPSULES BY MOUTH TWICE DAILY. Z94.0 famotidine (PEPCID) 20 mg tablet Take 2 tablets by mouth twice daily. 0.9% NaCl Access implanted vascular access device (IVAD) as needed for flush, blood draw or treatment.Flush IVAD with 10-20 mL NS every 4 weeks and PRN when IVAD not in use. heparin 100 unit/mL syrg Access implanted vascular access device (IVAD) as needed for flush, blood draw or treatment. Before de-accessing port, flush with 10-20ml normal saline and follow with 5 mL heparin (100 units/mL) (if no heparin allergy). De-access port on treatment completion. Biotin 10,000 mcg cap Take 1 capsule by mouth once daily. acetaminophen (TYLENOL) 500 mg tablet Take 1,000 mg by mouth every 6 hours as needed. alendronate (FOSAMAX) 35 mg tablet Take 1 tablet by mouth once each week. heparin 100 unit/mL syrg NURSING USE ONLY: USE FOR IVAD ACCESS FLUSH. AMBULATORY/OUTPATINET: PLEASE REORDER UPON HOSPITAL DISCHARGEMay access implanted vascular access device (IVAD) as needed for treatment. Before de-accessing port, flush with 10-20ml normal saline and follow with 5 mL heparin (100 units/mL) (if no heparin allergy). 0.9% NaCl NURSING USE ONLY: USED FOR IVAD ACCESS. AMBULATORY/OUTPATIENT: PLEASE REORDER UPON HOSPITAL DISCHARGE May access implanted vascular access device (IVAD) as needed for treatment.Flush IVAD with 10-20 mL NS every 4 weeks and PRN when IVAD not in use. Ferrous Sulfate (IRON) 325 mg (65 mg iron) tablet Take 1 tablet by mouth twice daily. Allergies: ALLERGIES Allergen Reactions - Sulfa (Sulfonamide * Mental Status Change Physical Exam: Exam of the left knee shows no effusion. She is tender to palpation over the lateral femoral condyle and the lateral joint line. She is slightly tender to palpation over the medial femoral condyle. Her range of motion is 0-150 with popping noted from the lateral compartment. The knee is ligamentously stable. Her right knee examines normally. Review of Systems: GENERAL: No weight loss, malaise or fevers MUSCULOSKELETAL: See HPI Imaging: X-rays of the left knee show avascular necrosis of the lateral femoral condyle with flattening and some collapse. There is narrowing of the lateral patellofemoral joint space as well, present bilaterally. She also has avascular necrosis involving the right knee. Diagnosis: left knee avascular necrosis Assessment/Plan: We had a discussion with the patient today regarding her diagnosis and treatment options. Due to her mechanical symptoms, we will obtain an MRI to evaluate for any loose fragments that could be treated surgically. We will see her back after the MRI to discuss the results and potential treatment options. She verbalized understanding. Lyudmila Bernstein MD CNOV Observed: 03/29/2018 Status: COMPLETED Source: [place] 12:00 PM [facility] REPOSITORY Office Visit (SPRTMN) ASHOK SAUCEDA ([id number]) 1975 F KDR Date Time Provider Department 03/29/18 12:00 PM GALLITO CHARLES During your visit today, we recorded the following information about you: Lyudmila Bernstein (Serafin) 03/29/2018 1:00 PM Signed March 29, 2018 HPI: Ms Sauceda is a 42 year old female with a history of longstanding corticosteroid use here for evaluation of her left knee. She began having pain in the left knee about 2-3 years ago after she was standing in her kitchen and pivoted, having acute knee pain. She was seen by another physician at the time, who did x-rays and told her she had AVN. She was prescribed an wall man brace, which helped only a little. She also has significant issues with the knee catching and locking, which has at times caused her to fall. This is associated with significant pain. She reports being unable to jog or do many activities because of the knee pain and mechanical symptoms. She is here today to discuss other treatment options. PAIN EVALUATION No data found. Past Medical History: 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 - Corpus luteum cyst or hematoma left ovary mass laparascopically biopsied 2002; benign corpus luteum - Cough jeanna induced - Cystitis x1 summer 2004 (presented with fever) - Fracture Childhood, L arm; states she 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 - Hyperlipidemia 02/22/2015 - Legionnaires' disease (HCC) 1996 during SLE flare, serum antigen +, but urine antigen negative; treated anyway - Malignant neoplasm of other specified sites of uterine adnexa 2001 open resection right ovary; suspicious lymphadenopathy and PET results led to lap node sampling end of 2001 with negative results; no chemo/XRT; no PET or CT scans for awhile - Nephritis and nephropathy, not specified as acute or chronic, with other specified pathological lesion in kidney, in diseases classified elsewhere 1996 nephrotic/nephritic, biopsy Class III treated [facility] steroids; biopsy 1997 Class Vb; ? Class IV (received CTX); 2000 and 2001 (? 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; quiescent - Type II or unspecified type diabetes mellitus without mention of complication, not stated as uncontrolled steroid induced; also had probably steroid psychosis with high dose - Unspecified hypertensive heart and kidney disease without heart failure and with chronic kidney disease stage V or end stage renal disease(404.92) - Unspecified hypothyroidism Family History: FAMILY HISTORY Problem Relation Age of Onset - Hypertension Mother - Hypertension Father - Diabetes Father - Ischemic Heart Disease Father - Stroke Father Social History: noncontributory Medications: predniSONE (DELTASONE) 10 mg tablet TAKE DIRECTED DARBEPOETIN MARY KAY IN ALBUMN ODELL (ARANESP INJECTION) by INJECTION(UNSPECIFIED PARENTERAL ROUTES) route. furosemide (LASIX) 20 mg tablet TAKE 1 TABLET NEEDED FOR EDEMA 0.9 % SODIUM CHLORIDE (0.9% NACL) Access implanted vascular access device (IVAD) as needed for flush, blood draw or treatment.Flush IVAD with 10-20 mL NS every 4 weeks and PRN when IVAD not in use. heparin 100 unit/mL injection Access implanted vascular access device (IVAD) as needed for flush, blood draw or treatment. Before de-accessing port, flush with 10-20ml normal saline and follow with 5 mL heparin (100 units/mL) (if no heparin allergy). De-access port on treatment completion. tacrolimus (PROGRAF) 1 mg capsule TAKE 2 MG IN THE AM, 1MG IN THE PM ON 12 HOUR SCHEDULE. ICD-10: Z94.0 carvedilol (COREG) 12.5 mg tablet TAKE 2 TABLETS TWICE A DAY simvastatin (ZOCOR) 20 mg tablet TAKE 1 TABLET DAILY Amoxicillin 500 mg tablet Take four (4) tablets one hour before dental procedure. levothyroxine (SYNTHROID) 50 mcg tablet TAKE 1 TABLET DAILY amLODIPine (NORVASC) 5 mg tablet TAKE 1 TABLET DAILY allopurinol (ZYLOPRIM) 100 mg tablet Take 2 tablets by mouth once daily. VANCOMYCIN HCL (VANCOMYCIN ORAL) Take by mouth. 2.5 ml QID x 14 days vancomycin (VANCOCIN) 125 mg capsule Take 1 capsule by mouth four times daily. mycophenolate mofetil (CELLCEPT) 250 mg capsule TAKE 2 CAPSULES BY MOUTH TWICE DAILY. Z94.0 famotidine (PEPCID) 20 mg tablet Take 2 tablets by mouth twice daily. 0.9% NaCl Access implanted vascular access device (IVAD) as needed for flush, blood draw or treatment.Flush IVAD with 10-20 mL NS every 4 weeks and PRN when IVAD not in use. heparin 100 unit/mL syrg Access implanted vascular access device (IVAD) as needed for flush, blood draw or treatment. Before de-accessing port, flush with 10-20ml normal saline and follow with 5 mL heparin (100 units/mL) (if no heparin allergy). De-access port on treatment completion. Biotin 10,000 mcg cap Take 1 capsule by mouth once daily. acetaminophen (TYLENOL) 500 mg tablet Take 1,000 mg by mouth every 6 hours as needed. alendronate (FOSAMAX) 35 mg tablet Take 1 tablet by mouth once each week. heparin 100 unit/mL syrg NURSING USE ONLY: USE FOR IVAD ACCESS FLUSH. AMBULATORY/OUTPATINET: PLEASE REORDER UPON HOSPITAL DISCHARGEMay access implanted vascular access device (IVAD) as needed for treatment. Before de-accessing port, flush with 10-20ml normal saline and follow with 5 mL heparin (100 units/mL) (if no heparin allergy). 0.9% NaCl NURSING USE ONLY: USED FOR IVAD ACCESS. AMBULATORY/OUTPATIENT: PLEASE REORDER UPON HOSPITAL DISCHARGE May access implanted vascular access device (IVAD) as needed for treatment.Flush IVAD with 10-20 mL NS every 4 weeks and PRN when IVAD not in use. Ferrous Sulfate (IRON) 325 mg (65 mg iron) tablet Take 1 tablet by mouth twice daily. Allergies: ALLERGIES Allergen Reactions - Sulfa (Sulfonamide * Mental Status Change Physical Exam: Exam of the left knee shows no effusion. She is tender to palpation over the lateral femoral condyle and the lateral joint line. She is slightly tender to palpation over the medial femoral condyle. Her range of motion is 0-150 with popping noted from the lateral compartment. The knee is ligamentously stable. Her right knee examines normally. Review of Systems: GENERAL: No weight loss, malaise or fevers MUSCULOSKELETAL: See HPI Imaging: X-rays of the left knee show avascular necrosis of the lateral femoral condyle with flattening and some collapse. There is narrowing of the lateral patellofemoral joint space as well, present bilaterally. She also has avascular necrosis involving the right knee. Diagnosis: left knee avascular necrosis Assessment/Plan: We had a discussion with the patient today regarding her diagnosis and treatment options. Due to her mechanical symptoms, we will obtain an MRI to evaluate for any loose fragments that could be treated surgically. We will see her back after the MRI to discuss the results and potential treatment options. She verbalized understanding. MD Melvin Barreto Anthony 03/29/2018 1:00 PM Signed I discussed the management of with the fellow. I have reviewed the fellow's note and agree with the documented findings and plan of care. Sravanthi Charles MD Referring Provider: SCHUYLER DONOVAN (HIST) [[id number]] Allergies As of Date: 03/29/2018 Noted Allergy Reaction SULFA (SULFONAMIDE ANTIBIOTICS) 10/16/2005 1 - Mental Status Change Date Reviewed: 03/29/2018 Reviewed by: Farrah Warren Ma - Fully Assessed Reason for Visit: Left Knee Pain [1208] Primary Visit Diagnosis:Osteonecrosis of knee region (HCC) [M86.9] Order(s):MRI KNEE WO [place] LT [[id number]] Order #: [id number] FUTURE Prescriptions as of 03/29/2018 Sig: PREDNISONE 10 MG TABLET TAKE DIRECTED ARANESP INJECTION by INJECTION(UNSPECIFIED PARE* FUROSEMIDE 20 MG TABLET TAKE 1 TABLET NEEDED FOR E* SODIUM CHLORIDE 0.9% FLUSH Access implanted vascular acc* HEPARIN, PORCINE (PF) 100 UNI* Access implanted vascular acc* TACROLIMUS 1 MG CAPSULE TAKE 2 MG IN THE AM, 1MG IN T* CARVEDILOL 12.5 MG TABLET TAKE 2 TABLETS TWICE A DAY SIMVASTATIN 20 MG TABLET TAKE 1 TABLET DAILY AMOXICILLIN 500 MG TABLET Take four (4) tablets one ricky* LEVOTHYROXINE 50 MCG TABLET TAKE 1 TABLET DAILY AMLODIPINE 5 MG TABLET TAKE 1 TABLET DAILY ALLOPURINOL 100 MG TABLET Take 2 tablets by mouth once * VANCOMYCIN ORAL Take by mouth. 2.5 ml QID x * VANCOMYCIN 125 MG CAPSULE Take 1 capsule by mouth four * MYCOPHENOLATE MOFETIL 250 MG * TAKE 2 CAPSULES BY MOUTH TWIC* FAMOTIDINE 20 MG TABLET Take 2 tablets by mouth twice* SODIUM CHLORIDE 0.9% FLUSH Access implanted vascular acc* HEPARIN LOCK FLUSH (PORCINE) * Access implanted vascular acc* BIOTIN 10,000 MCG CAPSULE Take 1 capsule by mouth once * ACETAMINOPHEN 500 MG TABLET Take 1,000 mg by mouth every * ALENDRONATE 35 MG TABLET Take 1 tablet by mouth once e* HEPARIN LOCK FLUSH (PORCINE) * NURSING USE ONLY: USE FOR I* SODIUM CHLORIDE 0.9% FLUSH NURSING USE ONLY: USED FOR * FERROUS SULFATE 325 MG (65 MG* Take 1 tablet by mouth twice * Problem List As Of Date 03/29/2018 Noted Resolved End stage renal disease [N18.6] INVALID FOR*09/28/2013 NEPHRITIS NOS IN OTHER DIS [N05.8] INVALID FOR* Systemic lupus erythematosus [M32.9] Priority: Mild More... DIABETES MELLITUS TYPE II-UNCOMPL [E11.9] More... Legionnaires' disease [A48.1] 09/28/2013 More... MALIG SATISH ADNEXA NEC [C57.4] More... Acquired hemolytic anemia, unspecified [D59.9] More... Thrombocytopenia, unspecified [D69.6] More... 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 Cough [R05] 09/28/2013 More... CYSTITIS [595] More... Kidney replaced by transplant [Z94.0] INVALID FOR* Priority: A More... Unspecified disease of white blood cells [D72.9]INVALID FOR*01/13/2011 Anemia, unspecified [D64.9] INVALID FOR*11/21/2011 Neutropenia, unspecified [D70.9] INVALID FOR* Need for prophylactic immunotherapy [Z29.8] INVALID FOR*09/28/2013 Anemia in chronic renal disease [N18.9, D63.1] INVALID FOR* More... Urinary tract infection, E. 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 Hypertension [I10] INVALID FOR* Priority: B More... Hyperlipidemia [E78.5] INVALID FOR* Priority: C More... UTI (lower urinary tract infection) [N39.0] INVALID FOR*02/28/2015 Priority: Severe More... Flu-like symptoms [R68.89] INVALID FOR*02/28/2015 Priority: Moderate More... DVT prophylaxis [[id number]] INVALID FOR*02/28/2015 Priority: D More... Disposition: Return for MRI review. Follow-up and Disposition History Recorded Encounter Status:Closed by GALLITO CHARLES MD on 03/29/18 PROGRESS Observed: 03/29/2018 Status: COMPLETED Source: [place] 11:06 AM [facility] REPOSITORY HNO ID: [id number] Author: Marquis Tyler Service: (none) Author Type: (none) Type: Progress Notes Filed: 03/29/2018 11:06 AM Note Text: Radiology Service Progress Note PATIENT NAME: Ashok Sauceda DATE OF SERVICE: March 29, 2018 TIME: 11:06 AM PATIENT IDENTITY VERIFICATION COMPLETED USING TWO (2) METHODS: Patient confirmed name verbally and ID band matches.. PATIENT GENDER DATA: Female. status: : No status: NO. PATIENT RELEVANT IMPLANT DATA REVIEWED: Not Applicable RADIOLOGY DEPARTMENT: General X-ray: Exam(s) Completed: Lower Extremity X-Ray(s): Knee, AP / Lat / Tunne / Merchant Left: PERIPHERAL IV DATA: Not applicable SIGNED BY: Marquis Price March 29, 2018 11:06 AM XR KNEE 4V AP/PA Observed: 03/29/2018 Status: F Source: [facility]+LAT/MINDY LT 11:00 AM [facility] [place] REPOSITORY * * *Final Report* * * DATE OF EXAM: Mar 29 2018 11:00AM AOX 5202 - XR KNEE 4V AP/PA BOTH+LAT/MINDY LT / PROCEDURE REASON: Pain, unspecified * * * * Physician Interpretation * * * * EXAMINATION: XR KNEE 4V AP/PA BOTH+LAT/MINDY LT HISTORY: chronic pain left knee Pain, unspecified . TECHNIQUE: XR KNEE 4V AP/PA BOTH+LAT/MINDY LT Laterality: LEFT Number of different views (projections): 4 M: XB_1 COMPARISON: 03/16/2017 RESULT: Bilateral distal femoral medullary and subchondral infarcts show no change. The subchondral plates, subchondral bone and joint spaces show no change. No signs of progressive disease. No joint effusion No other significant abnormality. IMPRESSION: Stable appearances of medullary and subchondral femoral infarcts without guide changer 12 months. Molding And Trim Installer: PSCB Transcribe Date/Time: Mar 29 2018 12:16P Dictated by : MAURIZIO POTTER MD This examination was interpreted and the report reviewed and electronically signed by: MAURIZIO POTTER MD on Mar 29 2018 12:20PM EST [id number] RENAL FUNCTION PANEL Collected: 03/24/2018 Status: F Source: [place] 10:09 AM [facility] REPOSITORY TYPE CODE TESTS RESULT OUT OF REFERENCE UNITS RANGE LAB ALB 3.9-4.9 g/dL Albumin 4.8 LAB CA 8.5-10.2 mg/dL Calcium, Total 10.1 LAB PHOS 2.7-4.8 mg/dL Phosphorus 3.3 LAB GLU 74-99 mg/dL Glucose High 118 Result Comment: The [place] Diabetes Association (ADA) provides guidance for cutoff values for fasting glucose and random glucose. The ADA defines fasting as no caloric intake for at least 8 hours. Fas ting plasma glucose results between 100 to 125 mg/dL indicate increased risk for diabetes (prediabetes). Fasting plasma glucose results greater than or equal to 126 mg/dL meet the criteria for diagnosis of diabetes. In the absence of unequivocal hyperglycemia, results should be confirmed by repeat testing. In a patient with classic symptoms of hyperglycemia or hyperglycemic crisis, random plasma glucose results greater than or equal to 200 mg/dL meet the criteria for diagnosis of diabetes. Reference: Standards of Medical Care in Diabetes 2016, [place] Diabetes Association. Diabetes Care. 2016.39(Suppl 1). LAB BUN 7-21 mg/dL BUN High 45 LAB CRET 0.58-0.96 mg/dL Creatinine High 1.98 LAB NA 136-144 mmol/L Sodium 142 LAB K 3.7-5.1 mmol/L Potassium 3.7 LAB CL 97-105 mmol/L Chloride 104 LAB CO2 22-30 mmol/L Low CO2 19 LAB AGAP 9-18 mmol/L Anion Gap High 19 LAB GFRAA eGFR- Amer. 33 LAB GFRNAA . eGFR-All Other Races 28 Result Comment: eGFR (Estimated GFR) Units of measure: mL/min/1.73 meters squared eGFR is derived from the reexpressed MDRD Study equation using the following parameters: serum creatinine, age, gender and race. The creatinine assay has been calibrated to be traceable to IDMS. An eGFR <60 mL/min/1.73m2 for >3 months is consistent with chronic kidney disease. Refer to KDOQI guidelines for clinical interpretation. In patients with unstable renal function, e.g. those with acute kidney injury, the eGFR may not accurately reflect actual GFR. Performed By: #### RFP, BKQUAN #### [facility] [address], [place] [id number] BK VIRUS PCR,QUANT,P Collected: 03/24/2018 Status: F Source: [place] 10:09 [facility] REPOSITORY TYPE CODE TESTS RESULT OUT OF REFERENCE UNITS RANGE LAB BKVDNA copies/mL BK Negative for Virus DNA BK virus DNA QN PCR by PCR Result Comment: Reference Range: Negative for BK virus DNA The Linear Range of this assay is 500 copies/mL to 5,000,000 copies/mL. This test was developed and its performance characteristics determined by [facility]'s [facility] [place] ([facility]). It has not been cleared or approved by the FDA. [facility] is regulated under CLIA as qualified to perform high-complexity testing. This test is used for clinical purposes. It should not be regarded as investigational or for research. Performed By: #### RFP, BKQUAN #### [facility] [address] [place], [place] [address] HEPATIC FUNC PNL FHC Collected: 03/24/2018 Status: F Source: [place] 10:08 [facility] REPOSITORY TYPE CODE TESTS RESULT OUT OF REFERENCE UNITS RANGE LAB ALB 3.9-4.9 g/dL Requisitioning Albumin entry error Result Comment: REORDERED [place] [id number] Account Credited LAB ALKP 32-117 U/L Alkaline Requisitioning entry Phosphatase error Result Comment: REORDERED AND [place] [id number] Account Credited LAB ALT 7-38 U/L Requisitioning entry ALT error Result Comment: REORDERED AND [place]OUT[place] [id number] Account Credited LAB AST 13-35 U/L Requisitioning entry AST error Result Comment: REORDERED AND ROUTED [place] [id number] Account Credited LAB CBIL <0.2 mg/dL Bilirubin,Conjugated Requisitioning entry error Result Comment: REORDERED AND ROUTED [place] [id number] Account Credited LAB TBIL 0.2-1.3 mg/dL Requisitioning entry Bilirubin, Total error Result Comment: REORDERED AND ROUTED [place] [id number] Account Credited LAB TP 6.3-8.0 g/dL Requisitioning entry Protein, Total error Result Comment: REORDERED AND ROUTED [place] [id number] Account Credited Performed By: #### PICHFP #### [facility] [place] [id number] HEPATIC FUNCTN PANEL Collected: 03/24/2018 Status: F Source: [place] 10:08 AM [facility] REPOSITORY TYPE CODE TESTS RESULT OUT OF REFERENCE UNITS RANGE LAB ALB 3.9-4.9 g/dL Albumin 4.6 LAB TBIL 0.2-1.3 mg/dL Bilirubin, Total 0.3 LAB CBIL <0.2 mg/dL Bilirubin,Conjuga <0.2 thomas LAB ALKP 32-117 U/L Alkaline Phosphatase 76 LAB AST 13-35 U/L AST 17 LAB ALT 7-38 U/L ALT 12 LAB TP 6.3-8.0 g/dL Protein, Total 7.6 Performed By: #### HFP #### [facility] [address] [place] [address] TACROLIMUS / [id number] Collected: 03/24/2018 Status: F Source: [place] 10:08 AM [facility] REPOSITORY TYPE CODE TESTS RESULT OUT OF REFERENCE UNITS RANGE LAB FK506 5.0-20.0 ng/mL Tacrolimus / 9.9 FK506 Result Comment: These reference ranges are provided as a general recommendation. Individualized target levels for a given patient will depend on many factors (including the type of organ transplant, ti me since transplantation, concurrent medications, and other clinical factors), and should be assessed by those health care providers experienced in the management of immunosuppression. Reference ranges and high/low indicator flags are provided as general guidelines only. The treating physician must determine appropriate target levels/dosing based on the specific clinical situation. Test performed by chemiluminescent immunoassay using famPlus. Performed By: #### FK506 #### [facility] [address] [place], [place] [address] DULCE ABS GR + CBC Collected: 03/24/2018 Status: F Source: [place] 10:05 AM [facility] REPOSITORY TYPE CODE TESTS RESULT OUT OF REFERENCE UNITS RANGE LAB WWBC 3.70-11.00 k/uL [place] WBC 4.47 LAB WRBC 3.90-5.20 m/uL Low [place] RBC 3.78 LAB WHGB 11.5-15.5 g/dL Low [place] Hemoglobin 11.1 LAB WHCT 36.0-46.0 % Low [place] Hematocrit 34.0 LAB WMCV 80.0-100.0 fL [place] MCV 89.9 LAB WMCH 26.0-34.0 pg [place] MCH 29.4 LAB WMCHC 30.5-36.0 g/dL [place] MCHC 32.6 LAB WRDW 11.5-15.0 % [place] RDW 14.4 LAB WPLT 150-400 k/uL [place] Platelet Cnt 168 LAB WMPV 9.0-12.7 fL [place] MPV 9.5 Result Comment: Test performed at: [facility], [address] [place] [address] Rd[address] [place] [address]. LAB ABGRAN 1.45-7.50 k/uL Absol Gran 2.33 Count RENAL FUNCTION PANEL Collected: 03/05/2018 Status: F Source: [place] 10:40 AM [facility] REPOSITORY TYPE CODE TESTS RESULT OUT OF REFERENCE UNITS RANGE LAB ALB 3.9-4.9 g/dL Albumin 4.6 LAB CA 8.5-10.2 mg/dL Calcium, Total 9.2 LAB PHOS 2.7-4.8 mg/dL Phosphorus 4.0 LAB GLU 74-99 mg/dL Glucose High 107 Result Comment: The [place] Diabetes Association (ADA) provides guidance for cutoff values for fasting glucose and random glucose. The ADA defines fasting as no caloric intake for at least 8 hours. Fas ting plasma glucose results between 100 to 125 mg/dL indicate increased risk for diabetes (prediabetes). Fasting plasma glucose results greater than or equal to 126 mg/dL meet the criteria for diagnosis of diabetes. In the absence of unequivocal hyperglycemia, results should be confirmed by repeat testing. In a patient with classic symptoms of hyperglycemia or hyperglycemic crisis, random plasma glucose results greater than or equal to 200 mg/dL meet the criteria for diagnosis of diabetes. Reference: Standards of Medical Care in Diabetes 2016, [place] Diabetes Association. Diabetes Care. 2016.39(Suppl 1). LAB BUN 7-21 mg/dL BUN High 44 LAB CRET 0.58-0.96 mg/dL Creatinine High 1.56 LAB NA 136-144 mmol/L Sodium 140 LAB K 3.7-5.1 mmol/L Potassium 4.5 LAB CL 97-105 mmol/L Chloride High 108 LAB CO2 22-30 mmol/L Low CO2 15 LAB AGAP 9-18 mmol/L Anion Gap 17 LAB GFRAA eGFR- Amer. 44 LAB GFRNAA . eGFR-All Other Races 36 Result Comment: eGFR (Estimated GFR) Units of measure: mL/min/1.73 meters squared eGFR is derived from the reexpressed MDRD Study equation using the following parameters: serum creatinine, age, gender and race. The creatinine assay has been calibrated to be traceable to IDMS. An eGFR <60 mL/min/1.73m2 for >3 months is consistent with chronic kidney disease. Refer to KDOQI guidelines for clinical interpretation. In patients with unstable renal function, e.g. those with acute kidney injury, the eGFR may not accurately reflect actual GFR. Performed By: #### RFP, BKQUAN #### [facility] [address] [place], [place] [address] BK VIRUS PCR,QUANT,P Collected: 03/05/2018 Status: F Source: [place] 10:40 AM [facility] REPOSITORY TYPE CODE TESTS RESULT OUT OF REFERENCE UNITS RANGE LAB BKVDNA copies/mL BK Negative for Virus DNA BK virus DNA QN PCR by PCR Result Comment: Reference Range: Negative for BK virus DNA The Linear Range of this assay is 500 copies/mL to 5,000,000 copies/mL. This test was developed and its performance characteristics determined by [facility]'s [facility] [place] ([facility]). It has not been cleared or approved by the FDA. [facility] is regulated under CLIA as qualified to perform high-complexity testing. This test is used for clinical purposes. It should not be regarded as investigational or for research. Performed By: #### RFP, BKQUAN #### [facility] [address] [place], [place] [address] TACROLIMUS / [id number] Collected: 03/05/2018 Status: F Source: [place] 10:39 AM [facility] REPOSITORY TYPE CODE TESTS RESULT OUT OF REFERENCE UNITS RANGE LAB FK506 5.0-20.0 ng/mL Tacrolimus / 6.7 FK506 Result Comment: These reference ranges are provided as a general recommendation. Individualized target levels for a given patient will depend on many factors (including the type of organ transplant, ti me since transplantation, concurrent medications, and other clinical factors), and should be assessed by those health care providers experienced in the management of immunosuppression. Reference ranges and high/low indicator flags are provided as general guidelines only. The treating physician must determine appropriate target levels/dosing based on the specific clinical situation. Test performed by chemiluminescent immunoassay using famPlus. Performed By: #### FK506 #### [facility] [address] [place], [place] [address] DULCE ABS GR + CBC Collected: 03/05/2018 Status: F Source: [place] 10:36 AM [facility] REPOSITORY TYPE CODE TESTS RESULT OUT OF REFERENCE UNITS RANGE LAB WWBC 3.70-11.00 k/uL [place] WBC 4.23 LAB WRBC 3.90-5.20 m/uL Low [place] RBC 3.29 LAB WHGB 11.5-15.5 g/dL Low [place] Hemoglobin 9.6 LAB WHCT 36.0-46.0 % Low [place] Hematocrit 29.3 LAB WMCV 80.0-100.0 fL [place] MCV 89.1 LAB WMCH 26.0-34.0 pg [place] MCH 29.2 LAB WMCHC 30.5-36.0 g/dL [place] MCHC 32.8 LAB WRDW 11.5-15.0 % [place] RDW 13.6 LAB WPLT 150-400 k/uL Low [place] Platelet Cnt 137 LAB WMPV 9.0-12.7 fL [place] MPV 9.5 Result Comment: Test performed at: [facility], [address] [place] [address]. LAB ABGRAN 1.45-7.50 k/uL Absol Gran 2.34 Count [place]UL[place] ABS GR + CBC Collected: 02/17/2018 Status: F Source: [place] 10:10 AM [facility] REPOSITORY TYPE CODE TESTS RESULT OUT OF REFERENCE UNITS RANGE LAB WWBC 3.70-11.00 k/uL Low [place] WBC 3.09 LAB WRBC 3.90-5.20 m/uL Low [place] RBC 3.56 LAB WHGB 11.5-15.5 g/dL Low [place] Hemoglobin 10.4 LAB WHCT 36.0-46.0 % Low [place] Hematocrit 31.6 LAB WMCV 80.0-100.0 fL [place] MCV 88.8 LAB WMCH 26.0-34.0 pg [place] MCH 29.2 LAB WMCHC 30.5-36.0 g/dL [place] MCHC 32.9 LAB WRDW 11.5-15.0 % [place] RDW 13.1 LAB WPLT 150-400 k/uL Low [place] Platelet Cnt 127 LAB WMPV 9.0-12.7 fL [place] MPV 9.4 Result Comment: Test performed at: [facility], [address] [place] [address]. LAB ABGRAN 1.45-7.50 k/uL Absol Gran 1.60 Count RENAL FUNCTION PANEL Collected: 02/17/2018 Status: F Source: [place] 10:10 AM [facility] REPOSITORY TYPE CODE TESTS RESULT OUT OF REFERENCE UNITS RANGE LAB ALB 3.9-4.9 g/dL Albumin 4.5 LAB CA 8.5-10.2 mg/dL Calcium, Total 10.0 LAB PHOS 2.7-4.8 mg/dL Phosphorus 4.2 LAB GLU 74-99 mg/dL Glucose High 104 Result Comment: The [place] Diabetes Association (ADA) provides guidance for cutoff values for fasting glucose and random glucose. The ADA defines fasting as no caloric intake for at least 8 hours. Fas ting plasma glucose results between 100 to 125 mg/dL indicate increased risk for diabetes (prediabetes). Fasting plasma glucose results greater than or equal to 126 mg/dL meet the criteria for diagnosis of diabetes. In the absence of unequivocal hyperglycemia, results should be confirmed by repeat testing. In a patient with classic symptoms of hyperglycemia or hyperglycemic crisis, random plasma glucose results greater than or equal to 200 mg/dL meet the criteria for diagnosis of diabetes. Reference: Standards of Medical Care in Diabetes 2016, [place] Diabetes [employer]. Diabetes Care. 2016.39(Suppl 1). LAB BUN 7-21 mg/dL BUN High 31 LAB CRET 0.58-0.96 mg/dL Creatinine High 1.56 LAB NA 136-144 mmol/L Sodium 141 LAB K 3.7-5.1 mmol/L Potassium 4.4 LAB CL 97-105 mmol/L Chloride 105 LAB CO2 22-30 mmol/L Low CO2 20 LAB AGAP 9-18 mmol/L Anion Gap 16 LAB GFRAA eGFR- Amer. 44 LAB GFRNAA . eGFR-All Other Races 36 Result Comment: eGFR (Estimated GFR) Units of measure: mL/min/1.73 meters squared eGFR is derived from the reexpressed MDRD Study equation using the following parameters: serum creatinine, age, gender and race. The creatinine assay has been calibrated to be traceable to IDMS. An eGFR <60 mL/min/1.73m2 for >3 months is consistent with chronic kidney disease. Refer to KDOQI guidelines for clinical interpretation. In patients with unstable renal function, e.g. those with acute kidney injury, the eGFR may not accurately reflect actual GFR. Performed By: #### RFP, PTHI, VITD, BKQUAN #### [facility] [address] [place] [id number] PTH, INTACT Collected: 02/17/2018 Status: F Source: [place] 10:10 AM [facility] REPOSITORY TYPE CODE TESTS RESULT OUT OF REFERENCE UNITS RANGE LAB PTH 15-65 pg/mL PTH, Intact 62 Performed By: #### RFP, PTHI, VITD, BKQUAN #### [facility] [address] [place] [address] VITAMIN D 25 HYDROXY Collected: 02/17/2018 Status: F Source: [place] 10:10 AM [facility] REPOSITORY TYPE CODE TESTS RESULT OUT OF REFERENCE UNITS RANGE LAB VITD 31.0-80.0 ng/mL Low Vitamin D 25 25.9 Hydroxy Result Comment: Classification of 25 [place] Vitamin D status: Insufficiency/Moderate Deficiency: < or = 30 ng/mL Sufficiency/Optimal Levels: 31 to 80 ng/mL Toxicity: > 100 ng/mL Test performed by chemiluminescent immunoassay. Performed By: #### RFP, PTHI, VITD, BKQUAN #### [facility] [address] [place] [id number] BK VIRUS PCR,QUANT,P Collected: 02/17/2018 Status: F Source: [place] 10:10 AM [facility] REPOSITORY TYPE CODE TESTS RESULT OUT OF REFERENCE UNITS RANGE LAB BKVDNA copies/mL BK Negative for Virus DNA BK virus DNA QN PCR by PCR Result Comment: Reference Range: Negative for BK virus DNA The Linear Range of this assay is 500 copies/mL to 5,000,000 copies/mL. This test was developed and its performance characteristics determined by [facility]'s [facility] [place] ([facility] It has not been cleared or approved by the FDA. -[facility] is regulated under CLIA as qualified to perform high-complexity testing. This test is used for clinical purposes. It should not be regarded as investigational or for research. Performed By: #### RFP, PTHI, VITD, BKQUAN #### [facility] [place] [address] TACROLIMUS / [id number] Collected: 02/17/2018 Status: F Source: [place] 10:10 [facility] REPOSITORY TYPE CODE TESTS RESULT OUT OF REFERENCE UNITS RANGE LAB FK506 5.0-20.0 ng/mL Low Tacrolimus / 3.9 FK506 Result Comment: These reference ranges are provided as a general recommendation. Individualized target levels for a given patient will depend on many factors (including the type of organ transplant, ti me since transplantation, concurrent medications, and other clinical factors), and should be assessed by those health care providers experienced in the management of immunosuppression. Reference ranges and high/low indicator flags are provided as general guidelines only. The treating physician must determine appropriate target levels/dosing based on the specific clinical situation. Test performed by chemiluminescent immunoassay using [employer]. Performed By: #### FK506 #### [facility] [address] [place] [id number] TACROLIMUS / FK506 Collected: 02/03/2018 Status: F Source: [place] 10:01 AM [facility] REPOSITORY TYPE CODE TESTS RESULT OUT OF REFERENCE UNITS RANGE LAB FK506 5.0-20.0 ng/mL Low Tacrolimus / 4.1 FK506 Result Comment: These reference ranges are provided as a general recommendation. Individualized target levels for a given patient will depend on many factors (including the type of organ transplant, ti me since transplantation, concurrent medications, and other clinical factors), and should be assessed by those health care providers experienced in the management of immunosuppression. Reference ranges and high/low indicator flags are provided as general guidelines only. The treating physician must determine appropriate target levels/dosing based on the specific clinical situation. Test performed by chemiluminescent immunoassay using famPlus. Performed By: #### [id number] #### [facility] [address] [place], [place] [address] RENAL FUNCTION PANEL Collected: 02/03/2018 Status: F Source: [place] 10:00 AM [facility] REPOSITORY TYPE CODE TESTS RESULT OUT OF REFERENCE UNITS RANGE LAB ALB 3.9-4.9 g/dL Albumin 4.9 LAB CA 8.5-10.2 mg/dL Calcium, High Total 10.6 LAB PHOS 2.7-4.8 mg/dL Phosphorus 3.9 LAB GLU 74-99 mg/dL Glucose 98 Result Comment: The [place] Diabetes Association (ADA) provides guidance for cutoff values for fasting glucose and random glucose. The ADA defines fasting as no caloric intake for at least 8 hours. Fas ting plasma glucose results between 100 to 125 mg/dL indicate increased risk for diabetes (prediabetes). Fasting plasma glucose results greater than or equal to 126 mg/dL meet the criteria for diagnosis of diabetes. In the absence of unequivocal hyperglycemia, results should be confirmed by repeat testing. In a patient with classic symptoms of hyperglycemia or hyperglycemic crisis, random plasma glucose results greater than or equal to 200 mg/dL meet the criteria for diagnosis of diabetes. Reference: Standards of Medical Care in Diabetes 2016, [place] [employer]. Diabetes Care. 2016.39(Suppl 1). LAB BUN 7-21 mg/dL BUN High 32 LAB CRET 0.58-0.96 mg/dL Creatinine High 1.47 LAB NA 136-144 mmol/L Sodium 142 LAB K 3.7-5.1 mmol/L Potassium 4.5 LAB CL 97-105 mmol/L Chloride High 107 LAB CO2 22-30 mmol/L Low CO2 20 LAB AGAP 9-18 mmol/L Anion Gap 15 LAB GFRAA eGFR- Amer. 47 LAB GFRNAA . eGFR-All Other Races 39 Result Comment: eGFR (Estimated GFR) Units of measure: mL/min/1.73 meters squared eGFR is derived from the reexpressed MDRD Study equation using the following parameters: serum creatinine, age, gender and race. The creatinine assay has been calibrated to be traceable to IDMS. An eGFR <60 mL/min/1.73m2 for >3 months is consistent with chronic kidney disease. Refer to KDOQI guidelines for clinical interpretation. In patients with unstable renal function, e.g. those with acute kidney injury, the eGFR may not accurately reflect actual GFR. Performed By: #### RFP, BKQUAN #### [facility] [address], [place] [address] BK VIRUS PCR,QUANT,P Collected: 02/03/2018 Status: F Source: [place] 10:00 [facility] REPOSITORY TYPE CODE TESTS RESULT OUT OF REFERENCE UNITS RANGE LAB BKVDNA copies/mL BK Negative for Virus DNA BK virus DNA QN PCR by PCR Result Comment: Reference Range: Negative for BK virus DNA The Linear Range of this assay is 500 copies/mL to 5,000,000 copies/mL. This test was developed and its performance characteristics determined by [facility]'s [facility] [place] (-[facility]). It has not been cleared or approved by the FDA. -[facility] is regulated under CLIA as qualified to perform high-complexity testing. This test is used for clinical purposes. It should not be regarded as investigational or for research. Performed By: #### RFP, BKQUAN #### [facility] [address], [place] [address] [place] ABS GR + CBC Collected: 02/03/2018 Status: F Source: [place] 9:59 [facility] REPOSITORY TYPE CODE TESTS RESULT OUT OF REFERENCE UNITS RANGE LAB WWBC 3.70-11.00 k/uL Low [place] WBC 3.49 LAB WRBC 3.90-5.20 m/uL [place] RBC 3.98 LAB WHGB 11.5-15.5 g/dL [place] Hemoglobin 11.5 LAB WHCT 36.0-46.0 % Low [place] Hematocrit 35.1 LAB WMCV 80.0-100.0 fL [place] MCV 88.2 LAB WMCH 26.0-34.0 pg [place] MCH 28.9 LAB WMCHC 30.5-36.0 g/dL [place] MCHC 32.8 LAB WRDW 11.5-15.0 % [place] RDW 12.8 LAB WPLT 150-400 k/uL [place] Platelet Cnt 157 LAB WMPV 9.0-12.7 fL [place] MPV 10.1 Result Comment: Test performed at: [facility] [place], [address] [place] [address]. LAB ABGRAN 1.45-7.50 k/uL Absol Gran 1.69 Count PROGRESS Observed: 01/19/2018 Status: COMPLETED Source: [place] 2:17 PM [facility] REPOSITORY HNO ID: [id number] Author: Edgardo Nguyen Service: (none) Author Type: Physician Type: Progress Notes Filed: 01/19/2018 2:56 PM Note Text: [facility] Transplant Follow up CC: kidney transplant follow up HPI This is a 42 year old female who presents for follow up of a DD kidney transplant. Date of Transplant: 01-05-12 Transplant number: #2 Base line Scr 1.5-1.8 Donor kidney age/gender: 46 YO MALE Original Disease: LUPUS CMV status: -/+ Induction therapy: Simulect Protocol Bx: NA 3-6 mo: 04/07/12 Transplant kidney, biopsy - Very low side of changes suspicious for acute cellular rejection. -Slight chronic interstitial inflammation and slight interstitial fibrosis. -Patchy global glomerulosclerosis. -Mild arteriolosclerosis. 06/21/13 Protocol Biopsy: Transplant kidney, biopsy - Focal global sclerosis. -Chronic sclerosing grade 2A. -Changes suspicious for acute cellular rejection. -Moderate arteriolosclerosis Problem List: 1. 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 Maher. Treated with Cytoxan/pred. 2. 12/2004 stillborn. 3. DD RTXP 0 mismatch (import from [place]; 48 yo male, COD: stroke) (D+/R+). Thymo induction, and pred free initially; One episode of rejection in first month [place] 2A; with endarteritis, and no C4d. retreated with thymo and good response. 4. Leukopenia requiring Neupogen support 5. chronic low grade thrombocytopenia 6. Nov 23 for MRSA bacteremia-, URI s/p HIVAT 7. 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 AVN left knee -- has been bothering her singificantly 11, Recurrent Gout Interval: fatigue overwhelming complaint note low bp today Current Outpatient Prescriptions: DARBEPOETIN MARY KAY IN ALBUMN ODELL (ARANESP INJECTION) by INJECTION(UNSPECIFIED PARENTERAL ROUTES) route. predniSONE (DELTASONE) 10 mg tablet TAKE 10 MG TABLETS PER TAPER INSTRUCTIONS FOR ACUTE GOUT FLARE cloNIDine HCl (CATAPRES) 0.1 mg tablet TAKE 1 TABLET TWICE A DAY furosemide (LASIX) 20 mg tablet TAKE 1 TABLET NEEDED FOR EDEMA heparin 100 unit/mL injection Access implanted vascular access device (IVAD) as needed for flush, blood draw or treatment. Before de-accessing port, flush with 10-20ml normal saline and follow with 5 mL heparin (100 units/mL) (if no heparin allergy). De-access port on treatment completion. tacrolimus (PROGRAF) 1 mg capsule TAKE 2 MG IN THE AM, 1MG IN THE PM ON 12 HOUR SCHEDULE. ICD-10: Z94.0 oxyCODONE-acetaminophen (PERCOCET) 5-325 mg tablet Take 1- 2 tablets by mouth every 6 hours as needed. carvedilol (COREG) 12.5 mg tablet TAKE 2 TABLETS TWICE A DAY simvastatin (ZOCOR) 20 mg tablet TAKE 1 TABLET DAILY Amoxicillin 500 mg tablet Take four (4) tablets one hour before dental procedure. levothyroxine (SYNTHROID) 50 mcg tablet TAKE 1 TABLET DAILY amLODIPine (NORVASC) 5 mg tablet TAKE 1 TABLET DAILY allopurinol (ZYLOPRIM) 100 mg tablet Take 2 tablets by mouth once daily. mycophenolate mofetil (CELLCEPT) 250 mg capsule TAKE 2 CAPSULES BY MOUTH TWICE DAILY. Z94.0 famotidine (PEPCID) 20 mg tablet Take 2 tablets by mouth twice daily. heparin 100 unit/mL syrg Access implanted vascular access device (IVAD) as needed for flush, blood draw or treatment. Before de-accessing port, flush with 10-20ml normal saline and follow with 5 mL heparin (100 units/mL) (if no heparin allergy). De-access port on treatment completion. Biotin 10,000 mcg cap Take 1 capsule by mouth once daily. acetaminophen (TYLENOL) 500 mg tablet Take 1,000 mg by mouth every 6 hours as needed. alendronate (FOSAMAX) 35 mg tablet Take 1 tablet by mouth once each week. heparin 100 unit/mL syrg NURSING USE ONLY: USE FOR IVAD ACCESS FLUSH. AMBULATORY/OUTPATINET: PLEASE REORDER UPON HOSPITAL DISCHARGEMay access implanted vascular access device (IVAD) as needed for treatment. Before de-accessing port, flush with 10-20ml normal saline and follow with 5 mL heparin (100 units/mL) (if no heparin allergy). Ferrous Sulfate (IRON) 325 mg (65 mg iron) tablet Take 1 tablet by mouth twice daily. 0.9 % SODIUM CHLORIDE (0.9% NACL) Access implanted vascular access device (IVAD) as needed for flush, blood draw or treatment.Flush IVAD with 10-20 mL NS every 4 weeks and PRN when IVAD not in use. VANCOMYCIN HCL (VANCOMYCIN ORAL) Take by mouth. 2.5 ml QID x 14 days vancomycin (VANCOCIN) 125 mg capsule Take 1 capsule by mouth four times daily. 0.9% NaCl Access implanted vascular access device (IVAD) as needed for flush, blood draw or treatment.Flush IVAD with 10-20 mL NS every 4 weeks and PRN when IVAD not in use. 0.9% NaCl NURSING USE ONLY: USED FOR IVAD ACCESS. AMBULATORY/OUTPATIENT: PLEASE REORDER UPON HOSPITAL DISCHARGE May access implanted vascular access device (IVAD) as needed for treatment.Flush IVAD with 10-20 mL NS every 4 weeks and PRN when IVAD not in use. No current facility-administered medications for this visit. BP 102/74 Pulse 72 Ht 160 cm (5' 3) Wt 63.5 kg (140 lb) BMI 24.8 kg/m2 HEENT: NC/AT, anicteric No oral lesions Neck supple No JVP Lungs CTA bilat no wheeze, rales CV RRR, no m/r/g ABD soft, NT Allograft nontender No peripheral edema Neuro nonfocal Creatinine (mg/dL) Date Value 12/30/2017 1.83 12/17/2017 1.84 12/03/2017 1.79 BUN (mg/dL) Date Value 12/30/2017 39 12/17/2017 44 12/03/2017 37 Potassium (mmol/L) Date Value 12/30/2017 4.5 12/17/2017 4.2 12/03/2017 4.4 WBC (k/uL) Date Value 06/10/2017 3.58 03/11/2017 4.75 02/24/2015 5.48 Hemoglobin (g/dL) Date Value 06/10/2017 10.7 03/11/2017 9.8 02/24/2015 9.1 Hematocrit (%) Date Value 06/10/2017 33.9 03/11/2017 31.0 02/24/2015 28.3 Platelet Count (k/uL) Date Value 06/10/2017 174 03/11/2017 149 02/24/2015 98 Calcium (mg/dL) Date Value 12/30/2017 9.5 12/17/2017 9.6 12/03/2017 10.2 PTH, Intact (pg/mL) Date Value 10/28/2017 104 07/09/2017 141 03/07/2015 72 Lipase (U/L) Date Value 02/22/2015 25 01/24/2012 19 Vitamin D 25 Hydroxy (ng/mL) Date Value 10/28/2017 35.7 07/09/2017 41.3 05/03/2015 37.7 Tacrolimus/FK506 (ng/mL) Date Value 12/30/2017 5.0 12/17/2017 7.5 12/03/2017 8.3 Sirolimus/Rapamune (ng/mL) Date Value 03/08/2007 <1.0 02/08/2007 <1.0 Cholesterol, Total (mg/dL) Date Value 06/18/2016 127 04/22/2016 145 11/07/2015 115 HDL Cholesterol (mg/dL) Date Value 06/18/2016 31 04/22/2016 36 11/07/2015 31 LDL Cholesterol (mg/dL) Date Value 06/18/2016 60 04/22/2016 80 11/07/2015 39 Triglyceride (mg/dL) Date Value 06/18/2016 180 04/22/2016 147 11/07/2015 225 No results found for: PROTTIMED Protein, Urine Random (mg/dL) Date Value 07/13/2014 6 10/03/2013 21 06/27/2013 20 01/31/2013 28 07/26/2012 39 03/18/2012 65 Creatinine, Ur Random (UCRR) (mg/dL) Date Value 07/13/2014 25.9 10/03/2013 155.6 06/27/2013 142.5 01/31/2013 169.5 07/26/2012 167.0 03/18/2012 194.3 Impression: ESRD sec SLE S/p KTXP x 2 most recent 01/05/2012 Stable reduced GFR Therapeutic Tac level No proteinuria Hypotension-- STOP CLONIDINE if bp still low in 2 wks will stop amlodipine Leukopenia- stable Anemia on aranesp Knee AVN- advised her to seek opinion on surgical and non- surgical options RTC 6 mo virttual visit Edgardo Nguyen MD CNOV Observed: 01/19/2018 Status: COMPLETED Source: [place] 1:50 PM [facility] [place] REPOSITORY Office Visit (NEPHMN) ASHOK SAUCEDA ([id number]) 1975 F KDR Date Time Provider Department 01/19/18 1:50 PM EDGARDO NGUYEN NEPHDIDIER During your visit today, we recorded the following information about you: Pulse Blood pressure Weight Height 72/minute 102/74 63.5 kg 1.6 m Edgardo Nguyen MD 01/19/2018 2:56 PM Signed [facility] Transplant Follow up CC: kidney transplant follow up HPI This is a 42 year old female who presents for follow up of a DD kidney transplant. Date of Transplant: 01-05-12 Transplant number: #2 Base line Scr 1.5-1.8 Donor kidney age/gender: 46 YO MALE Original Disease: LUPUS CMV status: -/+ Induction therapy: Simulect Protocol Bx: NA 3-6 mo: 04/07/12 Transplant kidney, biopsy - Very low side of changes suspicious for acute cellular rejection. -Slight chronic interstitial inflammation and slight interstitial fibrosis. -Patchy global glomerulosclerosis. -Mild arteriolosclerosis. 06/21/13 Protocol Biopsy: Transplant kidney, biopsy - Focal global sclerosis. -Chronic sclerosing grade 2A. -Changes suspicious for acute cellular rejection. -Moderate arteriolosclerosis Problem List: 1. 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 Maher. Treated with Cytoxan/pred. 2. 12/2004 stillborn. 3. DD RTXP 0 mismatch (import from [place]; 48 yo male, COD: stroke) (D+/R+). Thymo induction, and pred free initially; One episode of rejection in first month [place] 2A; with endarteritis, and no C4d. retreated with thymo and good response. 4. Leukopenia requiring Neupogen support 5. chronic low grade thrombocytopenia 6. Nov 23 for MRSA bacteremia-, URI s/p HIVAT 7. 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 AVN left knee -- has been bothering her singificantly 11, Recurrent Gout Interval: fatigue overwhelming complaint note low bp today Current Outpatient Prescriptions: DARBEPOETIN MARY KAY IN ALBUMN ODELL (ARANESP INJECTION) by INJECTION(UNSPECIFIED PARENTERAL ROUTES) route. predniSONE (DELTASONE) 10 mg tablet TAKE 10 MG TABLETS PER TAPER INSTRUCTIONS FOR ACUTE GOUT FLARE cloNIDine HCl (CATAPRES) 0.1 mg tablet TAKE 1 TABLET TWICE A DAY furosemide (LASIX) 20 mg tablet TAKE 1 TABLET NEEDED FOR EDEMA heparin 100 unit/mL injection Access implanted vascular access device (IVAD) as needed for flush, blood draw or treatment. Before de-accessing port, flush with 10-20ml normal saline and follow with 5 mL heparin (100 units/mL) (if no heparin allergy). De-access port on treatment completion. tacrolimus (PROGRAF) 1 mg capsule TAKE 2 MG IN THE AM, 1MG IN THE PM ON 12 HOUR SCHEDULE. ICD-10: Z94.0 oxyCODONE-acetaminophen (PERCOCET) 5-325 mg tablet Take 1- 2 tablets by mouth every 6 hours as needed. carvedilol (COREG) 12.5 mg tablet TAKE 2 TABLETS TWICE A DAY simvastatin (ZOCOR) 20 mg tablet TAKE 1 TABLET DAILY Amoxicillin 500 mg tablet Take four (4) tablets one hour before dental procedure. levothyroxine (SYNTHROID) 50 mcg tablet TAKE 1 TABLET DAILY amLODIPine (NORVASC) 5 mg tablet TAKE 1 TABLET DAILY allopurinol (ZYLOPRIM) 100 mg tablet Take 2 tablets by mouth once daily. mycophenolate mofetil (CELLCEPT) 250 mg capsule TAKE 2 CAPSULES BY MOUTH TWICE DAILY. Z94.0 famotidine (PEPCID) 20 mg tablet Take 2 tablets by mouth twice daily. heparin 100 unit/mL syrg Access implanted vascular access device (IVAD) as needed for flush, blood draw or treatment. Before de-accessing port, flush with 10-20ml normal saline and follow with 5 mL heparin (100 units/mL) (if no heparin allergy). De-access port on treatment completion. Biotin 10,000 mcg cap Take 1 capsule by mouth once daily. acetaminophen (TYLENOL) 500 mg tablet Take 1,000 mg by mouth every 6 hours as needed. alendronate (FOSAMAX) 35 mg tablet Take 1 tablet by mouth once each week. heparin 100 unit/mL syrg NURSING USE ONLY: USE FOR IVAD ACCESS FLUSH. AMBULATORY/OUTPATINET: PLEASE REORDER UPON HOSPITAL DISCHARGEMay access implanted vascular access device (IVAD) as needed for treatment. Before de-accessing port, flush with 10-20ml normal saline and follow with 5 mL heparin (100 units/mL) (if no heparin allergy). Ferrous Sulfate (IRON) 325 mg (65 mg iron) tablet Take 1 tablet by mouth twice daily. 0.9 % SODIUM CHLORIDE (0.9% NACL) Access implanted vascular access device (IVAD) as needed for flush, blood draw or treatment.Flush IVAD with 10-20 mL NS every 4 weeks and PRN when IVAD not in use. VANCOMYCIN HCL (VANCOMYCIN ORAL) Take by mouth. 2.5 ml QID x 14 days vancomycin (VANCOCIN) 125 mg capsule Take 1 capsule by mouth four times daily. 0.9% NaCl Access implanted vascular access device (IVAD) as needed for flush, blood draw or treatment.Flush IVAD with 10-20 mL NS every 4 weeks and PRN when IVAD not in use. 0.9% NaCl NURSING USE ONLY: USED FOR IVAD ACCESS. AMBULATORY/OUTPATIENT: PLEASE REORDER UPON HOSPITAL DISCHARGE May access implanted vascular access device (IVAD) as needed for treatment.Flush IVAD with 10-20 mL NS every 4 weeks and PRN when IVAD not in use. No current facility-administered medications for this visit. BP 102/74 Pulse 72 Ht 160 cm (5' 3ANDquot;) Wt 63.5 kg (140 lb) BMI 24.8 kg/m2 HEENT: NC/AT, anicteric No oral lesions Neck supple No JVP Lungs CTA bilat no wheeze, rales CV RRR, no m/r/g ABD soft, NT Allograft nontender No peripheral edema Neuro nonfocal Creatinine (mg/dL) Date Value 12/30/2017 1.83 12/17/2017 1.84 12/03/2017 1.79 BUN (mg/dL) Date Value 12/30/2017 39 12/17/2017 44 12/03/2017 37 Potassium (mmol/L) Date Value 12/30/2017 4.5 12/17/2017 4.2 12/03/2017 4.4 WBC (k/uL) Date Value 06/10/2017 3.58 03/11/2017 4.75 02/24/2015 5.48 Hemoglobin (g/dL) Date Value 06/10/2017 10.7 03/11/2017 9.8 02/24/2015 9.1 Hematocrit (%) Date Value 06/10/2017 33.9 03/11/2017 31.0 02/24/2015 28.3 Platelet Count (k/uL) Date Value 06/10/2017 174 03/11/2017 149 02/24/2015 98 Calcium (mg/dL) Date Value 12/30/2017 9.5 12/17/2017 9.6 12/03/2017 10.2 PTH, Intact (pg/mL) Date Value 10/28/2017 104 07/09/2017 141 03/07/2015 72 Lipase (U/L) Date Value 02/22/2015 25 01/24/2012 19 Vitamin D 25 Hydroxy (ng/mL) Date Value 10/28/2017 35.7 07/09/2017 41.3 05/03/2015 37.7 Tacrolimus/FK506 (ng/mL) Date Value 12/30/2017 5.0 12/17/2017 7.5 12/03/2017 8.3 Sirolimus/Rapamune (ng/mL) Date Value 03/08/2007 ANDlt;1.0 02/08/2007 ANDlt;1.0 Cholesterol, Total (mg/dL) Date Value 06/18/2016 127 04/22/2016 145 11/07/2015 115 HDL Cholesterol (mg/dL) Date Value 06/18/2016 31 04/22/2016 36 11/07/2015 31 LDL Cholesterol (mg/dL) Date Value 06/18/2016 60 04/22/2016 80 11/07/2015 39 Triglyceride (mg/dL) Date Value 06/18/2016 180 04/22/2016 147 11/07/2015 225 No results found for: PROTTIMED Protein, Urine Random (mg/dL) Date Value 07/13/2014 6 10/03/2013 21 06/27/2013 20 01/31/2013 28 07/26/2012 39 03/18/2012 65 Creatinine, Ur Random (UCRR) (mg/dL) Date Value 07/13/2014 25.9 10/03/2013 155.6 06/27/2013 142.5 01/31/2013 169.5 07/26/2012 167.0 03/18/2012 194.3 Impression: ESRD sec SLE S/p KTXP x 2 most recent 01/05/2012 Stable reduced GFR Therapeutic Tac level No proteinuria Hypotension-- STOP CLONIDINE if bp still low in 2 wks will stop amlodipine Leukopenia- stable Anemia on aranesp Knee AVN- advised her to seek opinion on surgical and non- surgical options RTC 6 mo virttual visit Edgardo Nguyen MD Referring Provider: EDGARDO NGUYEN [[id number]] Allergies As of Date: 01/19/2018 Noted Allergy Reaction SULFA (SULFONAMIDE ANTIBIOTICS) 10/16/2005 1 - Mental Status Change Date Reviewed: 01/19/2018 Reviewed by: Edgardo Nguyen - Fully Assessed Primary Visit Diagnosis:Screening for genitourinary condition [Z13.89] Other Visit Diagnoses:Aftercare following organ transplant [Z48.298] Kidney replaced by transplant [Z94.0] Long-term use of immunosuppressant medication [Z79.899] Hypotension due to drugs [I95.2] Order(s):UA CHEMSTRIP ONLY [SQUA] Order #: [id number] FUTURE UA CHEMSTRIP ONLY [SQUA] Order #: [id number] Prescriptions as of 01/19/2018 Sig: ARANESP INJECTION by INJECTION(UNSPECIFIED PARE* PREDNISONE 10 MG TABLET TAKE 10 MG TABLETS PER TAPER * FUROSEMIDE 20 MG TABLET TAKE 1 TABLET NEEDED FOR E* HEPARIN, PORCINE (PF) 100 UNI* Access implanted vascular acc* TACROLIMUS 1 MG CAPSULE TAKE 2 MG IN THE AM, 1MG IN T* OXYCODONE-ACETAMINOPHEN 5 MG-* Take 1-2 tablets by mouth gala* CARVEDILOL 12.5 MG TABLET TAKE 2 TABLETS TWICE A DAY SIMVASTATIN 20 MG TABLET TAKE 1 TABLET DAILY AMOXICILLIN 500 MG TABLET Take four (4) tablets one ricky* LEVOTHYROXINE 50 MCG TABLET TAKE 1 TABLET DAILY AMLODIPINE 5 MG TABLET TAKE 1 TABLET DAILY ALLOPURINOL 100 MG TABLET Take 2 tablets by mouth once * MYCOPHENOLATE MOFETIL 250 MG * TAKE 2 CAPSULES BY MOUTH TWIC* FAMOTIDINE 20 MG TABLET Take 2 tablets by mouth twice* HEPARIN LOCK FLUSH (PORCINE) * Access implanted vascular acc* BIOTIN 10,000 MCG CAPSULE Take 1 capsule by mouth once * ACETAMINOPHEN 500 MG TABLET Take 1,000 mg by mouth every * ALENDRONATE 35 MG TABLET Take 1 tablet by mouth once e* HEPARIN LOCK FLUSH (PORCINE) * NURSING USE ONLY: USE FOR I* FERROUS SULFATE 325 MG (65 MG* Take 1 tablet by mouth twice * SODIUM CHLORIDE 0.9% FLUSH Access implanted vascular acc* VANCOMYCIN ORAL Take by mouth. 2.5 ml QID x * VANCOMYCIN 125 MG CAPSULE Take 1 capsule by mouth four * SODIUM CHLORIDE 0.9% FLUSH Access implanted vascular acc* SODIUM CHLORIDE 0.9% FLUSH NURSING USE ONLY: USED FOR * Problem List As Of Date 01/19/2018 Noted Resolved End stage renal disease [N18.6] INVALID FOR*09/28/2013 NEPHRITIS NOS IN OTHER DIS [N05.8] INVALID FOR* Systemic lupus erythematosus [M32.9] Priority: Mild More... DIABETES MELLITUS TYPE II-UNCOMPL [E11.9] More... Legionnaires' disease [A48.1] 09/28/2013 More... MALIG SATISH ADNEXA NEC [C57.4] More... Acquired hemolytic anemia, unspecified [D59.9] More... Thrombocytopenia, unspecified [D69.6] More... 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 Cough [R05] 09/28/2013 More... CYSTITIS [595] More... Kidney replaced by transplant [Z94.0] INVALID FOR* Priority: A More... Unspecified disease of white blood cells [D72.9]INVALID FOR*01/13/2011 Anemia, unspecified [D64.9] INVALID FOR*11/21/2011 Neutropenia, unspecified [D70.9] INVALID FOR* Need for prophylactic immunotherapy [Z29.8] INVALID FOR*09/28/2013 Anemia in chronic renal disease [N18.9, D63.1] INVALID FOR* More... Urinary tract infection, E. 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 Hypertension [I10] INVALID FOR* Priority: B More... Hyperlipidemia [E78.5] INVALID FOR* Priority: C More... UTI (lower urinary tract infection) [N39.0] INVALID FOR*02/28/2015 Priority: Severe More... Flu-like symptoms [R68.89] INVALID FOR*02/28/2015 Priority: Moderate More... DVT prophylaxis [[id number]] INVALID FOR*02/28/2015 Priority: D More... Medications Discontinued During This Encounter cloNIDine HCl (CATAPRES) 0.1 mg tabl* 180 * 3 12/21/2017 01/19/2018 Class: [facility] Sig: TAKE 1 TABLET TWICE A DAY Disc: Reason for discontinue is not on file. Encounter Status:Closed by EDGARDO NGUYEN MD on 01/19/18 [place] ABS GR + CBC Collected: 01/13/2018 Status: F Source: [place] 10:46 AM [facility] REPOSITORY TYPE CODE TESTS RESULT OUT OF REFERENCE UNITS RANGE LAB WWBC 3.70-11.00 k/uL Low [place] WBC 2.15 LAB WRBC 3.90-5.20 m/uL Low [place] RBC 3.80 LAB WHGB 11.5-15.5 g/dL Low [place] Hemoglobin 11.0 LAB WHCT 36.0-46.0 % Low [place] Hematocrit 34.3 LAB WMCV 80.0-100.0 fL [place] MCV 90.3 LAB WMCH 26.0-34.0 pg [place] MCH 28.9 LAB WMCHC 30.5-36.0 g/dL [place] MCHC 32.1 LAB WRDW 11.5-15.0 % [place] RDW 13.5 LAB WPLT 150-400 k/uL Low [place] Platelet Cnt 120 LAB WMPV 9.0-12.7 fL [place] MPV 9.6 Result Comment: Test performed at: [facility] [facility] [place], [address] [place] [address]. LAB ABGRAN 1.45-7.50 k/uL Low Absol 0.81 Gran Count HEPATIC FUNC PNL FHC Collected: 12/30/2017 Status: F Source: [place] 10:35 AM [facility] REPOSITORY TYPE CODE TESTS RESULT OUT OF REFERENCE UNITS RANGE LAB ALB 3.9-4.9 g/dL Test Albumin reordered by [facility]. Result Comment: [id number] Account Credited LAB ALKP 32-117 U/L Alkaline Test Phosphatase reordered by [facility]. Result Comment: [id number] Account Credited LAB ALT 7-38 U/L Test reordered ALT by [facility]. Result Comment: [id number] Account Credited LAB AST 13-35 U/L Test AST reordered by [facility]. Result Comment: [id number] Account Credited LAB CBIL <0.2 mg/dL Bilirubin,Conjugated Test reordered by [facility]. Result Comment: [id number] Account Credited LAB TBIL 0.2-1.3 mg/dL Bilirubin, Test Total reordered by [facility]. Result Comment: [id number] Account Credited LAB TP 6.3-8.0 g/dL Protein, Test Total reordered by [facility]. Result Comment: [id number] Account Credited Performed By: #### PICHFP #### [facility] [address] [place], [place] [address] RENAL FUNCTION PANEL Collected: 12/30/2017 Status: F Source: [place] 10:35 AM [facility] REPOSITORY TYPE CODE TESTS RESULT OUT OF REFERENCE UNITS RANGE LAB ALB 3.9-4.9 g/dL Albumin 4.3 LAB CA 8.5-10.2 mg/dL Calcium, Total 9.5 LAB PHOS 2.7-4.8 mg/dL Phosphorus 3.5 LAB GLU 74-99 mg/dL Glucose 93 Result Comment: The [place] Diabetes Association (ADA) provides guidance for cutoff values for fasting glucose and random glucose. The ADA defines fasting as no caloric intake for at least 8 hours. Fas ting plasma glucose results between 100 to 125 mg/dL indicate increased risk for diabetes (prediabetes). Fasting plasma glucose results greater than or equal to 126 mg/dL meet the criteria for diagnosis of diabetes. In the absence of unequivocal hyperglycemia, results should be confirmed by repeat testing. In a patient with classic symptoms of hyperglycemia or hyperglycemic crisis, random plasma glucose results greater than or equal to 200 mg/dL meet the criteria for diagnosis of diabetes. Reference: Standards of Medical Care in Diabetes 2016, [place] Diabetes Association. Diabetes Care. 2016.39(Suppl 1). LAB BUN 7-21 mg/dL BUN High 39 LAB CRET 0.58-0.96 mg/dL Creatinine High 1.83 LAB NA 136-144 mmol/L Sodium 137 LAB K 3.7-5.1 mmol/L Potassium 4.5 LAB CL 97-105 mmol/L Chloride 103 LAB CO2 22-30 mmol/L Low CO2 19 LAB AGAP 9-18 mmol/L Anion Gap 15 LAB GFRAA eGFR- Amer. 36 LAB GFRNAA . eGFR-All Other Races 30 Result Comment: eGFR (Estimated GFR) Units of measure: mL/min/1.73 meters squared eGFR is derived from the reexpressed MDRD Study equation using the following parameters: serum creatinine, age, gender and race. The creatinine assay has been calibrated to be traceable to IDMS. An eGFR <60 mL/min/1.73m2 for >3 months is consistent with chronic kidney disease. Refer to KDOQI guidelines for clinical interpretation. In patients with unstable renal function, e.g. those with acute kidney injury, the eGFR may not accurately reflect actual GFR. Performed By: #### RFP, BKQUAN #### [facility] [place] [address] BK VIRUS PCR,QUANT,P Collected: 12/30/2017 Status: F Source: [place] 10:35 [facility] REPOSITORY TYPE CODE TESTS RESULT OUT OF REFERENCE UNITS RANGE LAB BKVDNA copies/mL BK Negative for Virus DNA BK virus DNA QN PCR by PCR Result Comment: Reference Range: Negative for BK virus DNA The Linear Range of this assay is 500 copies/mL to 5,000,000 copies/mL. This test was developed and its performance characteristics determined by [facility]'s [facility]ology [facility] [place] ([facility]). It has not been cleared or approved by the FDA. [facility] is regulated under CLIA as qualified to perform high-complexity testing. This test is used for clinical purposes. It should not be regarded as investigational or for research. Performed By: #### RFP, BKQUAN #### [facility] [address] [place] [address] HEPATIC FUNCTN PANEL Collected: 12/30/2017 Status: F Source: [place] 10:35 [facility] REPOSITORY TYPE CODE TESTS RESULT OUT OF REFERENCE UNITS RANGE LAB ALB 3.9-4.9 g/dL Albumin 4.2 LAB TBIL 0.2-1.3 mg/dL Bilirubin, Total 0.3 LAB CBIL <0.2 mg/dL Bilirubin,Conjuga <0.2 thomas LAB ALKP 32-117 U/L Alkaline Phosphatase 66 LAB AST 13-35 U/L Low AST 11 LAB ALT 7-38 U/L ALT 8 LAB TP 6.3-8.0 g/dL Protein, Total 6.7 Performed By: #### HFP #### [place] [address] TACROLIMUS / FK506 Collected: 12/30/2017 Status: F Source: [place] 10:35 [facility] REPOSITORY TYPE CODE TESTS RESULT OUT OF REFERENCE UNITS RANGE LAB FK506 5.0-20.0 ng/mL Tacrolimus / 5.0 FK506 Result Comment: These reference ranges are provided as a general recommendation. Individualized target levels for a given patient will depend on many factors (including the type of organ transplant, ti me since transplantation, concurrent medications, and other clinical factors), and should be assessed by those health care providers experienced in the management of immunosuppression. Reference ranges and high/low indicator flags are provided as general guidelines only. The treating physician must determine appropriate target levels/dosing based on the specific clinical situation. Test performed by chemiluminescent immunoassay using Rob Shirt Operator. Performed By: #### FK506 #### [facility] [address], [place] [address] [place] ABS GR + CBC Collected: 12/30/2017 Status: F Source: [place] 10:34 AM [facility] REPOSITORY TYPE CODE TESTS RESULT OUT OF REFERENCE UNITS RANGE LAB WWBC 3.70-11.00 k/uL Low [place] WBC 3.19 LAB WRBC 3.90-5.20 m/uL [place] RBC 3.40 LAB WHGB 11.5-15.5 g/dL Low [place] Hemoglobin 9.9 LAB WHCT 36.0-46.0 % Low [place] Hematocrit 31.4 LAB WMCV 80.0-100.0 fL [place] MCV 92.4 LAB WMCH 26.0-34.0 pg [place] MCH 29.1 LAB WMCHC 30.5-36.0 g/dL [place] MCHC 31.5 LAB WRDW 11.5-15.0 % [place] RDW 14.4 LAB WPLT 150-400 k/uL Low [place] Platelet Cnt 146 LAB WMPV 9.0-12.7 fL [place] MPV 9.0 Result Comment: Test performed at: [facility], [address] [place] [address]. LAB ABGRAN 1.45-7.50 k/uL Low Absol 1.34 Gran Count Observed: 12/23/2017 Status: F Source: [place] CULTURE, NOSE 2:00 PM [facility] Gram Stain Gram Stain 4+ White Blood Cells 2+ Gram negative rods Nasoph. Cult Ampicillin can be used for Beta-Lactamase negative isolates. Trimeth/Sulfa, Chloramphenicol, Cefotaxime, Ciprofloxacin, Amoxicillin/Clavulanic Acid,and Oral 2nd/3rd Generation Cephlosporins are effective against both Beta-Lactamase positive and Beta-Lactamase negative isolates. ORGANISM 1: Haemophilus influenzae Amount Growth 3+ Beta Lactamase Negative Performed By: #### [id number] #### [facility] [address] [place], [address] [place] ABS GR + CBC Collected: 12/17/2017 Status: F Source: [place] 12:00 PM [facility] REPOSITORY TYPE CODE TESTS RESULT OUT OF REFERENCE UNITS RANGE LAB WWBC 3.70-11.00 k/uL [place] WBC 5.21 LAB WRBC 3.90-5.20 m/uL [place] RBC 3.26 LAB WHGB 11.5-15.5 g/dL [place] Hemoglobin 9.5 LAB WHCT 36.0-46.0 % [place] Hematocrit 28.9 LAB WMCV 80.0-100.0 fL [place] MCV 88.7 LAB WMCH 26.0-34.0 pg [place] MCH 29.1 LAB WMCHC 30.5-36.0 g/dL [place] MCHC 32.9 LAB WRDW 11.5-15.0 % [place] RDW 12.9 LAB WPLT 150-400 k/uL [place] Platelet Cnt 154 LAB WMPV 9.0-12.7 fL [place] MPV 9.3 Result Comment: Test performed at: [facility], [address] [place] [address]. LAB ABGRAN 1.45-7.50 k/uL Absol Gran 2.93 Count RENAL FUNCTION PANEL Collected: 12/17/2017 Status: F Source: [place] 12:00 PM [facility] REPOSITORY TYPE CODE TESTS RESULT OUT OF REFERENCE UNITS RANGE LAB ALB 3.9-4.9 g/dL Albumin 4.4 LAB CA 8.5-10.2 mg/dL Calcium, Total 9.6 LAB PHOS 2.7-4.8 mg/dL Phosphorus 4.1 LAB GLU 74-99 mg/dL Glucose High 117 Result Comment: The [place] Diabetes Association (ADA) provides guidance for cutoff values for fasting glucose and random glucose. The ADA defines fasting as no caloric intake for at least 8 hours. Fas ting plasma glucose results between 100 to 125 mg/dL indicate increased risk for diabetes (prediabetes). Fasting plasma glucose results greater than or equal to 126 mg/dL meet the criteria for diagnosis of diabetes. In the absence of unequivocal hyperglycemia, results should be confirmed by repeat testing. In a patient with classic symptoms of hyperglycemia or hyperglycemic crisis, random plasma glucose results greater than or equal to 200 mg/dL meet the criteria for diagnosis of diabetes. Reference: Standards of Medical Care in Diabetes 2016, [place] Diabetes Association. Diabetes Care. 2016.39(Suppl 1). LAB BUN 7-21 mg/dL BUN High 44 LAB CRET 0.58-0.96 mg/dL Creatinine High 1.84 LAB NA 136-144 mmol/L Sodium 139 LAB K 3.7-5.1 mmol/L Potassium 4.2 LAB CL 97-105 mmol/L Chloride 104 LAB CO2 22-30 mmol/L Low CO2 20 LAB AGAP 9-18 mmol/L Anion Gap 15 LAB GFRAA eGFR- Amer. 36 LAB GFRNAA . eGFR-All Other Races 30 Result Comment: eGFR (Estimated GFR) Units of measure: mL/min/1.73 meters squared eGFR is derived from the reexpressed MDRD Study equation using the following parameters: serum creatinine, age, gender and race. The creatinine assay has been calibrated to be traceable to IDMS. An eGFR <60 mL/min/1.73m2 for >3 months is consistent with chronic kidney disease. Refer to KDOQI guidelines for clinical interpretation. In patients with unstable renal function, e.g. those with acute kidney injury, the eGFR may not accurately reflect actual GFR. Performed By: #### RFP, BKQUAN #### [facility] [address] [place], [place] [address] BK VIRUS PCR,QUANT,P Collected: 12/17/2017 Status: F Source: [place] 12:00 PM [facility] REPOSITORY TYPE CODE TESTS RESULT OUT OF REFERENCE UNITS RANGE LAB BKVDNA copies/mL BK Negative for Virus DNA BK virus DNA QN PCR by PCR Result Comment: Reference Range: Negative for BK virus DNA The Linear Range of this assay is 500 copies/mL to 5,000,000 copies/mL. This test was developed and its performance characteristics determined by [facility] [place] ([facility]). It has not been cleared or approved by the FDA. [facility] is regulated under CLIA as qualified to perform high-complexity testing. This test is used for clinical purposes. It should not be regarded as investigational or for research. Performed By: #### RFP, SARA #### [facility] [address] [place], [place] [address] TACROLIMUS / FK506 Collected: 12/17/2017 Status: F Source: [place] 12:00 PM [facility] REPOSITORY TYPE CODE TESTS RESULT OUT OF REFERENCE UNITS RANGE LAB FK506 5.0-20.0 ng/mL Tacrolimus / 7.5 FK506 Result Comment: These reference ranges are provided as a general recommendation. Individualized target levels for a given patient will depend on many factors (including the type of organ transplant, ti me since transplantation, concurrent medications, and other clinical factors), and should be assessed by those health care providers experienced in the management of immunosuppression. Reference ranges and high/low indicator flags are provided as general guidelines only. The treating physician must determine appropriate target levels/dosing based on the specific clinical situation. Test performed by chemiluminescent immunoassay using Rob Nouvola. Performed By: #### FK506 #### [facility] [address] [place], [place] [address] OBSOLETE Observed: 12/13/2017 Status: COMPLETED Source: [place] 12:00 AM [facility] REPOSITORY Refill (NEPHMN) ASHOK SAUCEDA ([id number]) 1975 F KDR Date Time Provider Department 12/13/17 EDGARDO NGUYEN NEPHDIDIER During your visit today, we recorded the following information about you: Allergies As of Date: 12/13/2017 Noted Allergy Reaction SULFA (SULFONAMIDE ANTIBIOTICS) 10/16/2005 1 - Mental Status Change Date Reviewed: 11/18/2017 Reviewed by: Tsering Lozada Coagulating Bath Mixer - Fully Assessed Reason for Visit: Refill Request [94] Order(s):furosemide (LASIX) 20 mg tabletTAKE 1 TABLET NEEDED FOR EDEMADisp: 90 tabletRfl: 2 Prescriptions as of 12/13/2017 Sig: FUROSEMIDE 20 MG TABLET TAKE 1 TABLET NEEDED FOR E* SODIUM CHLORIDE 0.9% FLUSH Access implanted vascular acc* HEPARIN, PORCINE (PF) 100 UNI* Access implanted vascular acc* TACROLIMUS 1 MG CAPSULE TAKE 2 MG IN THE AM, 1MG IN T* OXYCODONE-ACETAMINOPHEN 5 MG-* Take 1-2 tablets by mouth gala* CARVEDILOL 12.5 MG TABLET TAKE 2 TABLETS TWICE A DAY SIMVASTATIN 20 MG TABLET TAKE 1 TABLET DAILY AMOXICILLIN 500 MG TABLET Take four (4) tablets one ricky* LEVOTHYROXINE 50 MCG TABLET TAKE 1 TABLET DAILY AMLODIPINE 5 MG TABLET TAKE 1 TABLET DAILY ALLOPURINOL 100 MG TABLET Take 2 tablets by mouth once * VANCOMYCIN ORAL Take by mouth. 2.5 ml QID x * VANCOMYCIN 125 MG CAPSULE Take 1 capsule by mouth four * MYCOPHENOLATE MOFETIL 250 MG * TAKE 2 CAPSULES BY MOUTH TWIC* CLONIDINE HCL 0.1 MG TABLET TAKE 1 TABLET TWICE A DAY FAMOTIDINE 20 MG TABLET Take 2 tablets by mouth twice* PREDNISONE 10 MG TABLET TAKE 10 MG TABLETS PER TAPER * SODIUM CHLORIDE 0.9% FLUSH Access implanted vascular acc* HEPARIN LOCK FLUSH (PORCINE) * Access implanted vascular acc* BIOTIN 10,000 MCG CAPSULE Take 1 capsule by mouth once * ACETAMINOPHEN 500 MG TABLET Take 1,000 mg by mouth every * ALENDRONATE 35 MG TABLET Take 1 tablet by mouth once e* HEPARIN LOCK FLUSH (PORCINE) * NURSING USE ONLY: USE FOR I* SODIUM CHLORIDE 0.9% FLUSH NURSING USE ONLY: USED FOR * FERROUS SULFATE 325 MG (65 MG* Take 1 tablet by mouth twice * Problem List As Of Date 12/13/2017 Noted Resolved End stage renal disease [N18.6] INVALID FOR*09/28/2013 NEPHRITIS NOS IN OTHER DIS [N05.8] INVALID FOR* Systemic lupus erythematosus [M32.9] Priority: Mild More... DIABETES MELLITUS TYPE II-UNCOMPL [E11.9] More... Legionnaires' disease [A48.1] 09/28/2013 More... MALIG SATISH ADNEXA NEC [C57.4] More... Acquired hemolytic anemia, unspecified [D59.9] More... Thrombocytopenia, unspecified [D69.6] More... 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 Cough [R05] 09/28/2013 More... CYSTITIS [595] More... Kidney replaced by transplant [Z94.0] INVALID FOR* Priority: A More... Unspecified disease of white blood cells [D72.9]INVALID FOR*01/13/2011 Anemia, unspecified [D64.9] INVALID FOR*11/21/2011 Neutropenia, unspecified [D70.9] INVALID FOR* Need for prophylactic immunotherapy [Z29.8] INVALID FOR*09/28/2013 Anemia in chronic renal disease [N18.9, D63.1] INVALID FOR* More... Urinary tract infection, E. 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 Hypertension [I10] INVALID FOR* Priority: B More... Hyperlipidemia [E78.5] INVALID FOR* Priority: C More... UTI (lower urinary tract infection) [N39.0] INVALID FOR*02/28/2015 Priority: Severe More... Flu-like symptoms [R68.89] INVALID FOR*02/28/2015 Priority: Moderate More... DVT prophylaxis [NMO5195] INVALID FOR*02/28/2015 Priority: D More... Prescriptions ordered this encounter Disp Refills Start End FUROSEMIDE 20 MG TABLET 90 t* 2 12/16/2017 Sig: TAKE 1 TABLET NEEDED FOR EDEMA Medications Discontinued During This Encounter furosemide (LASIX) 20 mg tablet 90 t* 2 03/18/2017 12/16/2017 Class: [facility] Sig: TAKE 1 TABLET NEEDED FOR EDEMA Disc: Reason for discontinue is not on file. Encounter Status:Closed by EDGARDO NGUYEN MD on 12/16/17 ALLERGIES ALLERGIES DATE TYPE / CODE NAME / CODE REACTION SEVERITY SOURCE 12/03/2018 Drug Sulfa Itching Unknown [place] [facility] Allergy/4160 (Sulfonamide [facility] [address](SNOMED Antibiotics)/ Repository CT) [id number](RX NORM) 10/16/2005 Drug SULFA Mental Chg [facility] Class/211909 (SULFONAMIDE Other [place] 003(SNOMED ANTIBIOTICS) Repository CT) ENCOUNTERS ENCOUNTERS ADMIT/DISCHARGE ACCOUNT ADMITTING ENCOUNTER LOCATION SOURCE NUMBER CLASS 12/03/2018/12/04/19 [id number] Emergency [place] [facility] ing:ED Repository 12/02/2018/12/03/19 [id number] [facility], Ambulatory [address] Other [place] Repository 11/26/2018/11/27/19 [id number] Ambulatory [place] [facility] [place] Repository 11/24/2018/11/24/19 [id number] Ambulatory [place] 19 [facility] Main [place] Repository 11/24/2018/11/24/19 [id number] Ambulatory [place] [facility] [place] Repository 11/24/2018/11/24/19 [id number] Ambulatory [place] [facility] [place] Repository 11/01/2018/11/02/20 [id number] Ambulatory [place] [facility] [place] Repository 10/19/2018/10/19/20 [id number] Ambulatory [place] [facility] [place] Repository 10/18/2018/10/19/20 [id number] Ambulatory [place] [facility] [place] Repository 10/13/2018/10/13/20 [id number] Ambulatory [place] [facility] [place] Repository 10/13/2018/10/13/20 [id number] Ambulatory [place] [facility] [place] Repository 10/13/2018/10/13/20 [id number] Ambulatory [place] [facility] [place] Repository 10/13/2018/10/14/20 [id number] Ambulatory [place] [facility] [place] Repository 10/08/2018/10/11/20 [id number] Ambulatory [place] [facility] [place] Repository 09/22/2018/09/22/20 [id number] Ambulatory [place] [facility] [place] Repository 09/22/2018/09/22/20 [id number] Ambulatory [place] [facility] [place] Repository 09/22/2018/09/23/20 [id number] Ambulatory [place] [facility] [place] Repository 09/17/2018 [id number] [place], Ambulatory [facility] Other [place] Repository 09/16/2018/09/16/20 [id number] Ambulatory [place] [facility] [place] Repository 09/16/2018/09/16/20 [id number] Ambulatory [place] [facility] [place] Repository 09/07/2018/09/13/20 [id number] Ambulatory [place] [facility] [place] Repository 09/01/2018/09/01/20 [id number] Ambulatory [place] [facility] [place] Repository 09/01/2018/09/01/20 [id number] Ambulatory [place] [facility] [place] Repository 09/01/2018/09/01/20 [id number] Ambulatory [place] [facility] [place] Repository 09/01/2018/09/01/20 [id number] Ambulatory [place] [facility] [place] Repository 09/01/2018/09/02/20 [id number] Ambulatory [place] [facility] [place] Repository 08/30/2018/09/16/20 [id number] Ambulatory [place] [facility] [place] Repository 08/30/2018/08/30/20 [id number] Ambulatory [place] [facility] [place] Repository 08/26/2018/08/26/20 [id number] Ambulatory [place] [facility] [place] Repository 08/26/2018/08/27/20 [id number] Ambulatory [place] [facility] [place] Repository 08/18/2018/08/18/20 [id number] Ambulatory [place] [facility] [place] Repository 08/18/2018/08/18/20 [id number] Ambulatory [place] [facility] [place] Repository 08/18/2018/08/19/20 [id number] Ambulatory [place] [facility] [place] Repository 07/28/2018/07/28/20 [id number] Ambulatory [place] [facility] [place] Repository 07/28/2018/07/28/20 [id number] Ambulatory [place] [facility] [place] Repository 07/28/2018/07/29/20 [id number] Ambulatory [place] [facility] [place] Repository 07/27/2018/07/27/20 [id number] Ambulatory [place] [facility] [place] Repository 07/14/2018/07/14/20 [id number] Ambulatory [place] [facility] [place] Repository 07/14/2018/07/14/20 [id number] Ambulatory [place] [facility] [place] Repository 07/14/2018/07/15/20 [id number] Ambulatory [place] [facility] [place] Repository 07/14/2018/07/14/20 [id number] Ambulatory [place] [facility] [place] Repository 06/30/2018/06/30/20 [id number] Ambulatory [place] [facility] [place] Repository 06/30/2018 [id number] Ambulatory [place] [facility] [place] Repository 06/30/2018/07/01/20 [id number] Ambulatory [place] [facility] [place] Repository 06/16/2018/06/16/20 [id number] Ambulatory [place] [facility] [place] Repository 06/16/2018/06/16/20 [id number] Ambulatory [place] [facility] [place] Repository 06/16/2018/06/17/20 [id number] Ambulatory [place] [facility] [place] Repository 06/02/2018/06/02/20 [id number] Ambulatory [place] [facility] [place] Repository 06/02/2018/06/02/20 [id number] Ambulatory [place] [facility] [place] Repository 06/02/2018/06/03/20 [id number] Ambulatory [place] [facility] [place] Repository 05/21/2018/05/21/20 [id number] Ambulatory [place] [facility] [place] Repository 05/21/2018/05/21/20 [id number] Ambulatory [place] [facility] [place] Repository 05/21/2018/05/24/20 [id number] Ambulatory [place] [facility] [place] Repository 05/05/2018/05/05/20 [id number] Ambulatory [place] [facility] [place] Repository 05/05/2018/05/05/20 [id number] Ambulatory [place] [facility] [place] Repository 05/05/2018/05/05/20 [id number] Ambulatory [place] [facility] [place] Repository 04/14/2018/05/14/20 [id number] Ambulatory [place] [facility] [place] Repository 04/13/2018/04/13/20 [id number] Ambulatory [place] [facility] [place] Repository 04/07/2018 [id number] Ambulatory [place] [facility] [place] Repository 04/07/2018/04/07/20 [id number] Ambulatory [place] [facility] [place] Repository 04/07/2018/04/08/20 [id number] Ambulatory [place] [facility] [place] Repository 03/29/2018/03/30/20 [id number] Ambulatory [place] [facility] [place] Repository 03/29/2018/04/05/20 [id number] Ambulatory [place] [facility] [place] Repository 03/24/2018 [id number] Ambulatory [place] [facility] [place] Repository 03/24/2018/03/24/20 [id number] Ambulatory [place] [facility] [place] Repository 03/24/2018/03/25/20 [id number] Ambulatory [place] [facility] [place] Repository 03/05/2018 [id number] Ambulatory [place] [facility] [place] Repository 03/05/2018/03/31/20 [id number] Ambulatory [place] [facility] [place] Repository 03/05/2018/03/05/20 [id number] Ambulatory [place] [facility] [place] Repository 02/17/2018 [id number] Ambulatory [place] [facility] [place] Repository 02/17/2018/02/18/20 [id number] Ambulatory [place] [facility] [place] Repository 02/17/2018/02/19/20 [id number] Ambulatory [place] [facility] [place] Repository 02/03/2018 [id number] Ambulatory [place] [facility] Main [place] Repository 02/03/2018 [id number] Ambulatory [place] [facility] [place] Repository 02/03/2018/02/04/20 [id number] Ambulatory [place] [facility] [place] Repository 02/03/2018/02/05/20 [id number] Ambulatory [place] [facility] [place] Repository 01/19/2018/08/02/20 [id number] Ambulatory [place] [facility] [place] Repository 01/13/2018 [id number] Ambulatory [place] [facility] [place] Repository 01/13/2018/01/13/20 [id number] Ambulatory [place] [facility] [place] Repository 01/13/2018/01/13/20 [id number] Ambulatory [place] [facility] [place] Repository 12/30/2017 [id number] Ambulatory [place] [facility] [place] Repository 12/30/2017/12/31/19 [id number] Ambulatory [place] [facility] [place] Repository 12/30/2017/12/30/19 [id number] Ambulatory [place] [facility] [place] Repository 12/23/2017 [id number] Rep[facility] 12/17/2017 [id number] Ambulatory [place] [facility] [place] Repository 12/17/2017/12/18/19 [id number] Ambulatory [place] [facility] [place] Repository 12/17/2017/12/17/[id number] Repository PAYERS PAYERS ENCOUNTER GUARANTOR PAYER SUBSCRIBER SOURCE 12/03/2018 KUMAR Werner Primary ASHOK R [place] [id number] Insurance:MEDICARE SCHLABACHDOB: [facility] HEIDY PALMER PART A [facility] [id number] Number[place] Repository [phone]: [phone] [id number] [phone] () Date:2018-12-03 12/03/2018 Secondary KUMAR D [place] Insurance:ANTHEMPolic SCHLABACHDOB: Community y Number: [id number] [id number] Repository Date:[id number] [address] [place] [address] [id number]: 12/03/2018 Tertiary NOT GIVENUNK [place] Insurance:SELF PAY [facility] Number: Effective Repository Date:2018-12-03 12/23/2017 Kumar Werner Primary ASHOK R [place] [id number] Insurance:MEDICARE SCHLABACHDOB: [facility] Heidy Palmer PART A [facility] [id number] Number: Repository [id number]: [phone] [phone] () Date:2017-12-23 12/23/2017 Secondary Kumar D [place] Insurance:ANTHEMPolic SchlabachDOB: Community y Number: [id number] [id number] Repository Date:[id number] [id number] [place] [id number]: 12/23/2017 Tertiary NOT GIVENUNK [place] Insurance:SELF PAY [facility] Number: Effective Repository Date:2017-12-23
== END 2018-12-04 01:02 | disposition home or self-care (01) ==
PROVIDERS: Emergency Provider Emergency Medicine; Family Provider Family Medicine; PCP Family Medicine
DX: M25.562 Pain in left knee (principal); R50.9 Fever, unspecified; M32.9 Systemic lupus erythematosus, unspecified; I10 Essential (primary) hypertension; D64.9 Anemia, unspecified; Z79.52 Long term (current) use of systemic steroids; Z79.899 Other long term (current) drug therapy; Z98.890 Other specified postprocedural states; Z94.0 Kidney transplant status
CPT/HCPCS: 36591; 71046; 80048; 81001; 85025; 85652; 87040; 96374; 96375; 99282; A4216; J2405

== ENCOUNTER → 2019-07-01 15:57 | Outpatient (CLI) | payer MEDICARE, BC, SELFPAY | PROVIDERS: Family Provider Family Medicine; PCP Family Medicine; Referring Provider Otolaryngology; Visit Provider Otolaryngology | DX: J32.9 Chronic sinusitis, unspecified (principal) | CPT/HCPCS: 87070; 87077; 87186; 87205 ==

== ENCOUNTER → 2019-12-14 17:18 | Outpatient (CLI) | payer OTHER, MEDICARE, SELFPAY | PROVIDERS: PCP Family Medicine; Referring Provider Otolaryngology; Visit Provider Otolaryngology | DX: J32.9 Chronic sinusitis, unspecified (principal) | CPT/HCPCS: 87070; 87077; 87205 ==

== ENCOUNTER 2020-02-10 21:25 | Emergency (ER) | payer MEDICARE, OTHER, SELFPAY ==
[2020-02-10 21:26] VITALS: BP 139/101; PULSE 93; RESP 15; TEMP 39; O2SAT 97; BMI 22.7
--- NOTE | 2020-02-10 21:52 | EKG12_ITS ---
Test Reason : FEVER Blood Pressure : / mmHG Vent. Rate : 089 BPM Atrial Rate : 089 BPM P-R Int : 118 ms QRS Dur : 080 ms QT Int : 346 ms P-R-T Axes : -09 038 019 degrees QTc Int : 420 ms Normal sinus rhythm Normal ECG Confirmed by RICCO MEYERS ([id number]), managing editor CATHI DANIELS ([id number]) on 02/13/2020 1:08:56 PM Referred By: SONDRA Confirmed By:RICCO MEYERS
--- NOTE | 2020-02-10 22:15 | RAD_ITS ---
STUDY: X-RAY CHEST REASON FOR EXAM: Female, 44 years old. FEVER TECHNIQUE: Portable chest COMPARISON: 12/03/2018. FINDINGS: The lungs are clear and expanded. There is no demonstrated pleural abnormality. There is stable a right subclavian catheter. The tip is in the right atrium SVC junction. There are surgical clips overlying the right humerus. There are old right rib fractures. Normal size heart. Normal mediastinum and pete. Normal visualized pulmonary arteries. Normal visualized aortic arch and descending thoracic aorta. Normal visualized thoracic spine. Normal visualized ribs, clavicles, and shoulders. There is no demonstrated abnormality of the visualized soft tissue structures of the upper abdomen. RAD/Chest 1 View (Portable) IMPRESSION: No acute process Electronically Signed: Michael Gómez, at 23:12 EDT Tel , Service support ,
--- NOTE | 2020-02-10 22:32 | ED.DCSUM_ITS ---
History of Present Illness Chief Complaint: Fever Informant: Patient Onset: Days Context: Gradual Onset Timing: Intermittent Narrative: Patient is a 44-year-old female with history of lupus as well as renal transplant presenting with fever and lower abdominal pain. Patient states 2 weeks ago she had a low-grade fever and a cough. She was tested for coronavirus 19 which was negative through the [facility]. She states her fever had resolved and she was starting to feel better yesterday. Today she developed a fever again of 100.0. She notes she is also had constant pain in her left lower quadrant. It is worse with movement and direct palpation. Does not radiate. Patient has had some decreased urine output today but she is also noted that she is had decreased oral intake. She took Tylenol this morning. She denies any associated dysuria. She denies any associated nausea or vomiting. She did have diarrhea 2 days ago but that has resolved. She states she had normal bowel movement today. She is had intermittent cough but she describes it more as a tickle in her throat. She denies any rash. Patient is on low-dose prednisone, CellCept, Prograft. 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 Past Medical History - Allergies and Home Meds Allergies/Adverse Reactions: Allergies Sulfa (Sulfonamide Antibiotics) Allergy (Verified 02/10/20 21:30) Itching Primary Care Physician: Enrique Cardoso MD [Primary Care Provider] - Past Medical History: - - Hypertension, hypothyroid, lupus, kidney transplant, hyperlipidemia Surgical History: - - Knee transplant?'17 Smoking Status: Never smoker Review of Systems General: Reports: Chills, Fever, Malaise. Denies: Sweats Eyes: Denies: Visual changes - bilaterally, Diplopia ENT: Denies: Rhinorrhea, Sore throat Cardiovascular: Denies: Chest pain, Palpitations Respiratory: Reports: Cough. Denies: Dyspnea, Dyspnea on exertion Gastrointestinal: Reports: Abdominal pain, Diarrhea - Resolved. Denies: Nausea, Vomiting, Melena, Hematochezia Genitourinary: Reports: - - Slightly decreased frequency of urination. Denies: Dysuria, Hematuria, Frequency Musculoskeletal: Denies: Back pain, Extremity Pain Skin: Denies: Rash, Wounds Neurological: Denies: Headache, Weakness, Numbness Physical Exam Vital Signs/Narrative: Vital Signs Temp Pulse Resp BP Pulse Ox 02/10/20 21:26 102.2 F H 93 15 139/101 H 97 Inital Vital Signs reviewed: Yes General: Well nourished, Well developed, No Acute Distress Head: Normocephalic, Atraumatic Eyes: Perrl, EOMI ENT: Moist mucous membranes, No rhinorrhea Neck: Supple, Nontender Cardiovascular: Regular rate, Regular rhythm, No murmurs Respiratory: No distress, CTA bilaterally, Chest nontender Abdomen: Soft, Nondistended, Normal bowel sounds, Tender - Left lower quadrant. Negative for: Guarding, Rebound tenderness, Mass Back: Nontender, Normal Inspection. Negative for: CVA tenderness Extremities: Nontender, No edema Skin: Normal color, No rash Neurological: Alert, Oriented x3, Cranial nerves II-XII grossly intact, Normal Strength, Normal Sensation Psychological: Normal affect, Normal Mood Diagnostic/Tx/Re-eval Clinical Impression(s) from Imaging Studies Chest X-Ray 02/10/20 22:15 IMPRESSION: No acute process Electronically Signed: Michael Gómez at 23:12 EDT Tel , Service support , Abdomen/Pelvis CT 02/10/20 23:30 IMPRESSION: Stranding around left lower quadrant transplanted kidney, nonspecific but possibly pyelonephritis. Individualized dose optimization techniques were used for this CT. at 0012 Reported and signed by: Odessa Gonzalez MD Electronically Signed: Odessa Gonzalez MD at 0:11 EDT Tel , Service support , Laboratory Data 02/10/20 02/10/20 02/10/20 22:53 22:53 22:53 WBC 9.3 RBC 3.35 L Hgb 9.7 L Hct 30.4 L MCV 90.7 MCH 29.0 MCHC 31.9 L RDW Std Deviation 39.8 RDW Coeff of Bossman 12.2 Plt Count 215 MPV 9.6 Immature Gran % (Auto) 0.400 Neut % (Auto) 83.7 H Lymph % (Auto) 9.1 L Edgar % (Auto) 6.5 Eos % (Auto) 0.2 Baso % (Auto) 0.1 Absolute Neuts (auto) 7.7 Absolute Lymphs (auto) 0.84 Nucleated RBC % 0 PT 13.5 INR 1.1 APTT 35.9 Sodium 136 Potassium 4.4 Chloride 108 H Carbon Dioxide 21.0 Anion Gap 7 BUN 28 H Creatinine 1.76 H Estim Creat Clear Calc 33.39 Est GFR (MDRD) Af Amer 40 L Est GFR (MDRD) Non-Af 33 L BUN/Creatinine Ratio 15.9 Glucose 103 Lactic Acid Calcium 9.5 Total Bilirubin 0.40 AST 14 L ALT 25 Alkaline Phosphatase 90 Total Protein 7.8 Albumin 4.1 Globulin 3.7 Albumin/Globulin Ratio 1.1 Urine Color Urine Clarity Urine pH Ur Specific [place] Urine Protein Urine Glucose (UA) Urine Ketones Urine Occult Blood Urine Nitrite Urine Bilirubin Urine Urobilinogen Ur Leukocyte Esterase Urine RBC Urine WBC Ur Squamous Epith Cells Urine Bacteria Hyaline Casts Urine Mucus 02/10/20 02/10/20 22:53 22:53 WBC RBC Hgb Hct MCV MCH MCHC RDW Std Deviation RDW Coeff of Boss[place] Plt Count MPV Immature Gran % (Auto) Neut % (Auto) Lymph % (Auto) Edgar % (Auto) Eos % (Auto) Baso % (Auto) Absolute Neuts (auto) Absolute Lymphs (auto) Nucleated RBC % PT INR APTT Sodium Potassium Chloride Carbon Dioxide Anion Gap BUN Creatinine Estim Creat Clear Calc Est GFR (MDRD) Af Amer Est GFR (MDRD) Non-Af BUN/Creatinine Ratio Glucose Lactic Acid 0.4 Calcium Total Bilirubin AST ALT Alkaline Phosphatase Total Protein Albumin Globulin Albumin/Globulin Ratio Urine Color Yellow Urine Clarity Sl. Cloudy Urine pH 6.0 Ur Specific [place] 1.010 Urine Protein 100 H Urine Glucose (UA) Normal Urine Ketones 5 H Urine Occult Blood 10 H Urine Nitrite Negative Urine Bilirubin Negative Urine Urobilinogen Normal Ur Leukocyte Esterase Negative Urine RBC 0-5 SEEN Urine WBC 0-5 SEEN Ur Squamous Epith Cells 5-10 SEEN Urine Bacteria 1+ Hyaline Casts 0-5 SEEN Urine Mucus 0 SEEN - Rhythm Strip Rhythm Strip: Sinus Rhythm Rate: 89 Ectopy: None - EKG Initial EKG Interpretation: Sinus Rhythm, - - Normal sinus rhythm at a rate of 89 Normal intervals Normal axis Normal ST segments - Medical Decision Making Patient is evaluated for fever. She has a history of 2 kidney transplants most recently in 2011. 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 Nguyen. 2 weeks ago patient had a low-grade fever and viral symptoms. At that time she was negative for cold. Her fever returned today. She is also had worsening pain in her left lower quadrant. This is over where her active transplant kidney is. Blood work is unremarkable. Her creatinine is mildly elevated but is at her baseline. She does have anemia as well but again this is at her baseline. Urinalysis is not consistent with infection. Lactate is normal. CT of the abdomen and pelvis shows a possible stranding around the left donor kidney. In the ER patient is given Tylenol and has improvement of her fever. We will discuss with on-call through the transfer line to determine if patient needs admission/IV antibiotics given the fact that she is immunosuppressed with a fever. Case is signed out to oncoming physician, Dr. Negrete, pending final disposition from [facility] transfer line. ED Disposition - Plan for ED Patient: Disposition: [facility] - Main Diagnosis: Fever, LLQ abdominal pain Referrals: Enrique Cardoso MD [Primary Care Provider] -
[2020-02-10] MEDS: Acetaminophen 500 MG Tablet 1000 MG PO (22:50)
[2020-02-10] MEDS: 0.9% Normal Saline 1,000 ML 999 ML IV (22:50)
[2020-02-10 23:02] LABS: Mucous, Urine 0 SEEN /hpf (<or=2+)
[2020-02-10 23:06] VITALS: BP 144/95; PULSE 85; RESP 18; O2SAT 95; O2SAT 96
[2020-02-10 23:13] LABS: Color, Urine Yellow (Yellow); Glucose, Dipstick Normal (Normal); Ketone-Dipstick 5 mg/dl (Negative); Leukocyte Esterase-Dipstick Negative /ul (Negative); Nitrite-Dipstick Negative (Negative); Occult Blood-Urine 10 /ul (Negative); Protein-Dipstick 100 mg/dl (Negative); Urine Bilirubin Dipstick Negative (Negative); Urine Clarity Sl. Cloudy (Clear); Urine Urobilinogen Normal (Normal)
[2020-02-10 23:14] LABS: Absolute Lymphocyte Count 0.84 X10^3/uL (0.83-4.51); Absolute Neutrophil Count 7.7 X10^3/uL (2.0-7.7); Basophil# 0.01 X10^3/uL; Basophil% 0.1 % (0-1); Eosinophil# 0.02 X10^3/uL; Eosinophils% 0.2 % (0-5); Hematocrit 30.4 % (37-47); Hemoglobin 9.7 g/dL (12.0-15.0); Lymphocyte # 0.84 X10^3/ul (4.0); Lymphocyte % 9.1 % (19-41); Mean Corp Hgb Conc 31.9 g/dL (32-36); Mean Corpuscular Volume 90.7 fL (81-99); Mean Platelet Vol. 9.6 fl (6.2-12.0); Monocyte% 6.5 % (0-10); NRBC Flagged by Analyzer 0 % (0-5); Neutrophil # 7.74 X10^3/uL (2.7-7.7); Neutrophil % 83.7 % (47-70); Platelet Count 215 K/mm3 (150-450); RBC Distribution Width CV 12.2 % (11.6-14.6); RBC Distribution Width SD 39.8 fl (35.1-43.9); Red Blood Count 3.35 M/mm3 (4.2-5.4); White Blood Count 9.3 K/mm3 (4.4-11.0)
[2020-02-10 23:18] LABS: International Normalized Ratio 1.1; Prothrombin Time (Protime)PT. 13.5 SECONDS (11.7-14.9)
[2020-02-10 23:19] LABS: Partial Thromboplast Time 35.9 Seconds (24.1-36.2)
[2020-02-10 23:24] LABS: Lactic Acid 0.4 mmol/L (0.4-1.9)
[2020-02-10 23:26] LABS: ALB/GLOB Ratio 1.1 RATIO (0.9-2.4); AST(SGOT) 14 U/L (15-37); Alanine Aminotransfer ALT/SGPT 25 U/L (13-56); Albumin, Serum 4.1 g/dL (3.2-5.0); Alkaline Phosphatase 90 U/L (45-117); Anion Gap 7 (5-15); BUN 28 mg/dL (7-18); BUN/Creat Ratio 15.9 RATIO (10-20); Calcium,Total 9.5 mg/dL (8.5-10.1); Chloride 108 mmol/L (98-107); Creatinine, Serum 1.76 mg/dL (0.55-1.02); EST Glomerular Filtration Rate 33 mL/min (>60); Est Glom Filt Rate - Afr Amer 40 mL/min (>60); Estimated Creatinine Clearance 33.39 ml/min; Globulin 3.7 g/dL (2.2-4.2); Glucose 103 mg/dL (74-106); Potassium 4.4 mmol/L (3.5-5.1); Protein, Total 7.8 g/dL (6.4-8.2); Sodium Level 136 mmol/L (136-145)
[2020-02-10 23:30] LABS: Hyaline Cast 0-5 SEEN /lpf (0-5)
--- NOTE | 2020-02-10 23:30 | CT_ITS ---
HISTORY: LLQ PAIN, FEVER, HX LUPUS, OVARIAN CA, KIDNEY TRANSPLANT X 2, CURRENT PORT ADDITIONAL HISTORY: None provided. TECHNIQUE: CT images were obtained of the abdomen and pelvis without IV contrast. Enteric contrast was not given. Number of images including paperwork: 405. A radiation dose optimization technique was used for this scan. COMPARISON: None FINDINGS: Evaluation of the abdominopelvic organs is limited in the absence of contrast. LOWER THORAX: Trace bilateral pleural effusions. Trace pericardial effusion. LIVER: No concerning focal lesion. GALLBLADDER: No radiopaque calculi. BILE DUCTS: No significant biliary dilatation. SPLEEN: Unremarkable. PANCREAS: Unremarkable. ADRENAL GLANDS: Unremarkable. KIDNEYS/URETERS: Atrophic [place] kidneys with 1-2 mm nonobstructing calculi. Atrophic right lower quadrant transplant kidney. Mild perinephric stranding around left lower quadrant transplanted kidney. No hydronephrosis. BOWEL: No bowel obstruction. No significant bowel wall thickening. No localized inflammation. APPENDIX: No evidence of appendicitis. FREE FLUID: Trace free fluid. FREE AIR: None. LYMPH NODES: No pathologic appearing adenopathy. PERITONEUM, RETROPERITONEUM AND MESENTERY: Otherwise unremarkable. VASCULATURE: Atherosclerotic calcification. ABDOMINAL WALL: Unremarkable. PELVIS: Unremarkable bladder. OSSEOUS AND SOFT TISSUE STRUCTURES: No acute skeletal findings. CT/Abdomen/Pelvis without Cont IMPRESSION: Stranding around left lower quadrant transplanted kidney, nonspecific but possibly pyelonephritis. Individualized dose optimization techniques were used for this CT. at 0012 Reported and signed by: Odessa Gonzalez MD Electronically Signed: Odessa Gonzalez MD at 0:11 EDT Tel , Service support ,
[2020-02-10 23:31] LABS: Red Blood Cells-Urine 0-5 SEEN /hpf (0-5); Squamous Epithelial Cells - UA 5-10 SEEN /hpf (5-10); White Blood Cells 0-5 SEEN /hpf (0-5)
[2020-02-10 23:32] LABS: Bacteria 1+ /hpf (None Seen)
[2020-02-10 23:52] VITALS: TEMP 37.5
[2020-02-11 00:22] VITALS: BP 129/88; PULSE 95; RESP 15; O2SAT 97
[2020-02-11 01:06] VITALS: BP 129/85; PULSE 77; RESP 19; O2SAT 94
--- NOTE | 2020-02-11 01:50 | ED.VISSUMM ---
- ER Visit Summary Date of Service: 02/11/20 Chief Complaint: [Addendum to initial dictation by Dr. Marquez] History of Present Illness: The patient is a 44 F [presented with fever and left lower quadrant pain. 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 Care of patient turned over to me to discuss case with hospitalist at [facility] for transfer to their facility for admission. I discussed case with the hospitalist, Dr. Salmeron who accepted transfer of patient. I was asked to give the patient a dose of Zosyn IV.] Physical Examination: [] Test Results: [] Emergency Department Course and Treatment: [Patient given Zosyn 4.5 g IV] Treatment Plan: [] Disposition: [Is for to [facility]] Impression: [Fever-etiology uncertain Status post renal transplant with immunosuppression] This note was generated with [employer] dictation software. It may contain incorrect words, spelling, and punctuation that were not noted in review of the chart prior to signing ED Disposition - Plan for ED Patient: Diagnosis: Fever, LLQ abdominal pain Referrals: Enrique Cardoso MD [Primary Care Provider] -
[2020-02-11 02:02] VITALS: BP 135/83; PULSE 73; RESP 18; TEMP 37.1; O2SAT 96
[2020-02-11 02:29] VITALS: BP 135/83; PULSE 73; RESP 18; TEMP 37.1; O2SAT 96
[2020-02-11] MEDS: Ondansetron 4 MG/2 ML Vial IV (02:45)
== END 2020-02-11 02:56 | disposition short-term general hospital (02) ==
PROVIDERS: Emergency Provider Emergency Medicine; PCP Family Medicine
DX: R50.9 Fever, unspecified (principal); R10.32 Left lower quadrant pain; E03.9 Hypothyroidism, unspecified; E78.5 Hyperlipidemia, unspecified; M32.9 Systemic lupus erythematosus, unspecified; I10 Essential (primary) hypertension; Z94.0 Kidney transplant status; Z79.899 Other long term (current) drug therapy
CPT/HCPCS: 71045; 74176; 80053; 81001; 83605; 85025; 85610; 85730; 87040; 87077; 87086; 87088; 87186; 93005; 96361; 96365; 96375; 99284; J7030; J7040; A4216; J2405

== ENCOUNTER 2023-04-27 12:45 | Emergency (ER) | payer MEDICARE, BC, SELFPAY ==
[2023-04-27 12:46] VITALS: BP 197/100; PULSE 78; RESP 14; TEMP 36.6; O2SAT 99; BMI 24.2
--- NOTE | 2023-04-27 13:34 | AVDS_ITS ---
Reason For Study: R/O Blood clot RIGHT Brachial artery, 66.7/8.1 cm/sec. Brachial artery, 86.8 ml/min. Brachial vein is compressible with normal venous flow. AVF graft from prox anastamosis (brachial artery) to distal anastamosis (brachial vein) is occluded. Preliminary report given to Dr. Danielson. VL/AV Fistula/Dialysis Graft Scan Interpretation Summary Occluded left upper arm AV graft Brachial vein patent with normal waveforms Brachial artery patent with no evidence of stenosis Ordering Physician: Arnaud Danielson Referring Physician: Enrique Cardoso Performed By: Anel Garcia RVT
--- NOTE | 2023-04-27 13:37 | EX.ED.UPPERE ---
HPI <Arnaud Danielson MD - Last Filed: 04/28/23 08:31> History of Present Illness Chief Complaint: Upper Extremity Injury Narrative Narrative: 47-year-old female has past medical history of graft in her right upper extremity where she states she is to have dialysis performed. It has not been accessed in a long time. She presents from urgent care today because yesterday she had fever as high as 100 degrees, and redness and swelling and pain in her right upper extremity. She denies any chest pain or shortness of breath. She states that at the urgent care they were going to do blood work. The quickest that they could get her in for an ultrasound was this evening in [place], so instead they sent her to the emergency department. Patient states that she had her fistula placed years ago at [facility], but it has not been accessed in years and she no longer receives dialysis through it. PFSH <Arnaud Danielson MD - Last Filed: 04/28/23 08:31> [facility] Home Medications amlodipine 5 mg tablet 5 mg PO DAILY 01/08/14 [History Last Taken Unknown] carvedilol 12.5 mg tablet 12.5 mg PO BID 01/08/14 [History Last Taken Unknown] darbepoetin [place] in polysorbat 25 mcg/0.42 mL in polysorbate injection syringe (Aranesp) 25 mcg subcut PRN PRN Not Specified 01/08/14 [History Last Taken Unknown] famotidine 20 mg tablet 20 mg PO BID 01/08/14 [History Last Taken Unknown] filgrastim 300 mcg/mL injection solution (Neupogen) 300 mcg subcut X1 PRN Not Specified 01/08/14 [History Last Taken Unknown] furosemide 20 mg tablet 20 mg PO DAILY PRN PRN Swelling 01/08/14 [History Last Taken Unknown] levothyroxine 50 mcg tablet 50 mcg PO DAILY 01/08/14 [History Last Taken Unknown] mycophenolate mofetil 250 mg capsule 500 mg PO BID 01/08/14 [History Last Taken Unknown] prednisone 5 mg tablet 5 mg PO DAILY 01/08/14 [History Last Taken Unknown] simvastatin 20 mg tablet 20 mg PO DAILY 01/08/14 [History Last Taken Unknown] tacrolimus 1 mg capsule, immediate-release 2 mg PO BREAKFAST 01/08/14 [History Last Taken Unknown] tacrolimus 1 mg capsule, immediate-release 3 mg PO QHS 12/13/14 [History Last Taken Unknown] ondansetron 4 mg disintegrating tablet 4 mg PO Q8H PRN PRN Nausea #10 tabs 12/14/14 [Rx Last Taken Unknown] promethazine 25 mg rectal suppository (Promethegan) 25 mg RECTAL Q6H PRN PRN Nausea ##6 12/14/14 [Rx Last Taken Unknown] allopurinol 100 mg tablet 200 mg PO DAILY 12/03/18 [History Last Taken Unknown] ferrous sulfate, dried 159 mg (45 mg iron) tablet,extended release 65 mg PO BID 02/10/20 [History Last Taken Unknown] hydrocodone-acetaminophen 5-325mg 5mg-325mg 1 tab PO Q6H PRN PRN Pain 3 days #10 TABLETS 04/27/23 [Rx Last Taken Unknown] Allergy/AdvReac Type Severity Reaction Status Date / Time Sulfa (Sulfonamide Allergy Itching Verified 02/10/20 21:30 Antibiotics) Social History Smoking Status: Never smoker ROS <Arnaud Danielson MD - Last Filed: 04/28/23 08:31> ROS ED ROS Narrative Constitutional: No fever, no chills. HEENT: No sore throat. No neck pain. No loss of vision. No rhinorrhea. Cardiovascular: No chest pain. No palpitations. No pedal edema. Respiratory: No cough, no shortness of breath. Abdominal: No abdominal pain. No nausea. No vomiting. Genitourinary: No dysuria. No hematuria. Musculoskeletal: No myalgias. Right upper arm fistula pain. Neurologic: No headaches. No dizziness. No lightheadedness. Skin: No rash. Redness over fistula. Psychiatric: No depression. No anxiety. EXAM <Arnaud Danielson MD - Last Filed: 04/28/23 08:31> Physical Exam Narrative Exam Narrative: Afebrile. Vital signs noted. HEENT: Normocephalic. Atraumatic. PERRL, EOMI. Neck soft and supple. No point tenderness or step off. Cardiovascular: Regular rate and rhythm. No murmurs, rubs, or gallops appreciated. Respiratory: No tachypnea. Lungs clear to auscultation bilaterally. Gastrointestinal: Abdomen soft, nontender, with normoactive bowel sounds. No rebound or guarding. Neurological: Awake. Alert. Nonfocal, nonlateralizing. Skin: No rash. Normal color. No pallor. Musculoskeletal: No pedal edema. Full range of motion extremities. Mild erythema over right upper arm fistula, palpable radial pulse. Neurovascular intact distally. No palpable thrill or audible thrill over fistula. Const Vital Signs: 04/27/23 12:46 Temperature 98 F Temperature Source Temporal Pulse Rate 78 Respiratory Rate 14 Blood Pressure 197/100 H Blood Pressure Mean 132 Pulse Ox 99 Oxygen Delivery Method Room Air [facility] <Arnaud Danielson MD - Last Filed: 04/28/23 08:31> [facility] Narrative Medical decision making narrative: ReviewedConcern is for infection versus clotted off fistula with hyperemia. There is no crepitance. I have low suspicion for necrotizing fasciitis. I do not feel that DVT ultrasound is the right imaging choice for clotted fistula. I discussed the patient with vascular surgeon Dr. Anthony Powell. He would like an ultrasound/scan of the dialysis fistula. I had considered arteriogram but in consultation with the vascular surgeon, he would like to look for fluid around the fistula, and additionally I will obtain a CBC to see if she has an elevated white count along with a lactic acid to look for sepsis, but she is not showing any other signs of SIRS currently. In review of the preliminary report, her AV fistula graft portion is fully clotted off. I do feel that the redness is more hyperemia. She was given a [place] tablet here for analgesia. I discussed patient with Dr. Powell who agrees that as long as there is no sign of infection, she can follow-up with him tomorrow the images and decide how to further manag her clotted fistula. I reviewed her laboratory work and she has normal white count. Lab Data Attestation: I reviewed the patient's lab results. <Dr. Dany Lee DO - Last Filed: 04/27/23 16:29> [facility] Narrative Medical decision making narrative: ReviewedConcern is for infection versus clotted off fistula with hyperemia. There is no crepitance. I have low suspicion for necrotizing fasciitis. I do not feel that DVT ultrasound is the right imaging choice for clotted fistula. I discussed the patient with vascular surgeon Dr. Anthony Powell. He would like an ultrasound/scan of the dialysis fistula. I had considered arteriogram but in consultation with the vascular surgeon, he would like to look for fluid around the fistula, and additionally I will obtain a CBC to see if she has an elevated white count along with a lactic acid to look for sepsis, but she is not showing any other signs of SIRS currently. In review of the preliminary report, her AV fistula graft portion is fully clotted off. I do feel that the redness is more hyperemia. She was given a [place] tablet here for analgesia. I discussed patient with Dr. Powell who agrees that as long as there is no sign of infection, she can follow-up with him tomorrow the images and decide how to further manag her clotted fistula. I reviewed her laboratory work and she has normal white count. Dr. Lee dictating: Patient signed out to me for follow-up on blood work. CBC showed no significant leukocytosis with a white blood cell count of 6.8. Hemoglobin is 10.2 at her baseline. Creatinine at baseline at 1.76. Lactic acid 0.2. Discussed with Dr. Powell who recommended having patient follow-up as an outpatient. Patient discharged stable condition. Discharge Plan Triage Chief Complaint: Upper Extremity Injury ED Provider: Arnaud Danielson Dx/Rx/DC Orders Clinical Impression: Pain from arteriovenous fistula, Upper arm pain, AV fistula thrombosis Instructions: Understanding the Pain Response, Having Surgical Thrombectomy, ED Pain, Acute, Uncertain Cause Prescriptions: New hydrocodone-acetaminophen 5-325 mg tablet 1 tab PO Q6H PRN PRN (Reason: Pain) 3 Days Qty: 10 0RF No Action carvedilol 12.5 MG tablet 12.5 mg PO BID mycophenolate mofetil 250 MG capsule 500 mg PO BID prednisone 5 MG tablet 5 mg PO DAILY filgrastim [Neupogen] 300 MCG/ML solution 300 mcg subcut X1 PRN (Reason: Not Specified) amlodipine 5 MG tablet 5 mg PO DAILY famotidine 20 MG tablet 20 mg PO BID levothyroxine 50 MCG tablet 50 mcg PO DAILY simvastatin 20 MG tablet 20 mg PO DAILY furosemide 20 MG tablet 20 mg PO DAILY PRN PRN (Reason: Swelling) tacrolimus 1 MG capsule 2 mg PO BREAKFAST Label Comments: 1 MG QPM darbepoetin [place] in polysorbat [Aranesp (in polysorbate)] 25 MCG/0.42 ML syringe 25 mcg subcut PRN PRN (Reason: Not Specified) Label Comments: DOSE ADJUSTED ACCORDING TO WBC LEVELS tacrolimus 1 MG capsule 3 mg PO QHS ondansetron 4 MG tablet 4 mg PO Q8H PRN PRN (Reason: Nausea) Qty: 10 0RF promethazine [Promethegan] 25 MG suppository 25 mg RECTAL Q6H PRN PRN (Reason: Nausea) Qty: 6 0RF allopurinol 100 MG tablet 200 mg PO DAILY ferrous sulfate, dried 159 MG tablet extended release 65 mg PO BID Primary Care Provider: Enrique Cardoso Referrals: Enrique Cardoso MD [Primary Care Provider] - Anthony Powell MD [Med Staff - Active Staff] - 1 Day Disposition Disposition: Home, Self Care Discharge Date/Time: 04/27/23 16:54
--- NOTE | 2023-04-27 14:47 | NURSING ---
DR TAZ GARDNER
[2023-04-27 14:52] LABS: Absolute Lymphocyte Count 0.91 X10^3/uL (0.83-4.51); Basophil# 0.02 X10^3/uL; Basophil% 0.3 % (0-1); Eosinophil# 0.07 X10^3/uL; Hematocrit 31.5 % (37-47); Hemoglobin 10.2 g/dL (12.0-15.0); Lymphocyte # 0.91 X10^3/ul (0.83-4.51); Lymphocyte % 13.4 % (19-41); Mean Corp Hgb Conc 32.4 g/dL (32-36); Mean Corpuscular Hgb 29.6 pg (27.0-32.0); Mean Corpuscular Volume 91.3 fL (81-99); Mean Platelet Vol. 9.9 fl (6.2-12.0); Monocyte# 0.69 X10^3/uL; Monocyte% 10.1 % (0-10); NRBC Flagged by Analyzer 0 % (0-5); Neutrophil # 5.03 X10^3/uL (2.7-7.7); Platelet Count 159 K/mm3 (150-450); RBC Distribution Width CV 12.9 % (11.6-14.6); RBC Distribution Width SD 41.5 fl (35.1-43.9); Red Blood Count 3.45 M/mm3 (4.2-5.4); White Blood Count 6.8 K/mm3 (4.4-11.0)
[2023-04-27 15:05] LABS: Anion Gap 9 (5-15); BUN 40 mg/dL (7-18); BUN/Creat Ratio 22.7 RATIO (10-20); Calcium,Total 9.6 mg/dL (8.5-10.1); Chloride 110 mmol/L (98-107); Creatinine, Serum 1.76 mg/dL (0.55-1.02); EST Glomerular Filtration Rate 33 mL/min (>60); Est Glom Filt Rate - Afr Amer 40 mL/min (>60); Estimated Creatinine Clearance 32.34 ml/min; Glucose 113 mg/dL (74-106); Potassium 3.9 mmol/L (3.5-5.1); Sodium Level 138 mmol/L (136-145)
[2023-04-27] MEDS: HYDROcodone Bitartrate/Apap 5/325 Tablet PO (15:29)
[2023-04-27 16:00] VITALS: BP 148/96; PULSE 75; RESP 16; O2SAT 93
[2023-04-27 16:07] LABS: Lactic Acid 0.2 mmol/L (0.4-1.9)
[2023-04-27 16:45] VITALS: BP 138/74; PULSE 66; RESP 15; O2SAT 97
[2023-04-27] MEDS: 0.9 % NaCl (Sterile) Posiflush 10 mL IV (16:53)
== END 2023-04-27 16:54 | disposition home or self-care (01) ==
PROVIDERS: Emergency Provider Emergency Medicine; PCP Family Medicine; Visit Provider Emergency Medicine
DX: T82.868A Thrombosis due to vascular prosthetic devices, implants and grafts, initial encounter (principal); Y83.2 Surgical operation with anastomosis, bypass or graft as the cause of abnormal reaction of the patient, or of later complication, without mention of misadventure at the time of the procedure; M79.621 Pain in right upper arm; Z79.890 Hormone replacement therapy; Z79.899 Other long term (current) drug therapy
CPT/HCPCS: 36591; 80048; 83605; 85025; 93990; 99283; J7030; A4216

== ENCOUNTER → 2024-09-09 | Outpatient (CLI) | payer MEDICARE, OTHER, SELFPAY ==
--- OUTSIDE RECORDS SUMMARY | 2024-09-09 17:05 | XMS RPT_ITS | CCD ---
Author Organization [facility] CliniSyil Care Team Providers Care Management Planner Name Role Phone GALLITO CHARLES Admitting Unavailable MINIACI GALLITO Attending Unavailable MINIACI GALLITO Admitting Unavailable MINITAMICA CASTILLOONY Attending Unavailable Nabila Gomez Primary Care Provider 1(02 12) Christina Leonard DO Unavailable Nabila Gomez Primary Care Provider 1(02 12) Christina Leonard DO Unavailable Nabila Gomez Primary Care Provider 1(02 12) Nabila Gomez Primary Care Provider 1(02 12) Christina Leonard DO Unavailable NABILA GOMEZ MD Primary Care Physician ([phone] PATRICIA CLAYTON, NABILA Michel Primary Care Unavailable CARMEN CLAYTON, DILIA Attending Unavailable CARMEN CLAYTON, DILIA Attending Unavailable NABILA GOMEZ MD Primary Care Unavailable CARMEN CLAYTON, DILIA Attending Unavailable NABILA GOMEZ MD Primary Care Unavailable NABILA GOMEZ Primary Care Unavailab DK Hilton Attending Unavailable Christina Leonard DO Unavailable Nabila Gomez Primary Care Provider 1(02 12) NABILA GOMEZ Primary Care Unavailab le SELF Referring Unavailable NABILA GOMEZ Primary Care Unavailab le MASCSCHUYLER Nash Referring Unavailable NABILA GOMEZ Primary Care Unavailab le MASCSCHUYLER Nash Referring Unavailable NABILA GOMEZ Primary Care Unavailab le NABILA GOMEZ Primary Care Unavailab le MASCI, SCHUYLER A Referring Unavailable NAUMOFF, NABILA ELLIOTT Primary Care Unavailab le ATHYJUANI Carla Referring Unavailable NAUMOFF, NABILA ELLIOTT Primary Care Unavailab le SELF Referring Unavailable HAYEDGARDO Attending Unavailable NAUMOFF, NABILA GALLAGHER Primary Care Unavailab le NAUMOFF, NABILALogan GALLAGHER Primary Care Unavailab le MASCI, SCHUYLER A Referring Unavailable NAUMOFF, NABILALogan GALLAGHER Primary Care Unavailab le NAUMOFF, NABILA FLORESOME Primary Care Unavailab le MASCI, SCHUYLER A Referring Unavailable MASCI, SCHUYLER A Referring Unavailable NAUMOFF, NABILA FLORESOME Primary Care Unavailab le NAUMOFF, NABILA FLORESOME Primary Care Unavailab le MASCI, SCHUYLER A Referring Unavailable NAUMOFF, NABILA FLORESOME Primary Care Unavailab le MASCI, SCHUYLER A Referring Unavailable NAUMOFF, NABILA FLORESOME Primary Care Unavailab le MASCI, SCHUYLER A Referring Unavailable NAUMOFF, NABILA FLORESOME Primary Care Unavailab le MASCI, SCHUYLER A Referring Unavailable SELF Referring Unavailable NAUMOFF, NABILA FLORESOME Primary Care Unavailab le MASCI, SCHUYLER A Referring Unavailable NAUMOFF, NABILA FLORESOME Primary Care Unavailab le NAUMOFF, NABILA FLORESOME Primary Care Unavailab le NAUMOFF, NABILA FLORESOME Primary Care Unavailab le MASCI, SCHUYLER A Referring Unavailable NAUMOFF, NABILA ELLIOTT Primary Care Unavailab le NAUMOFF, NABILA FLORESOME Primary Care Unavailab le MASCI, SCHUYLER A Referring Unavailable NAUMOFF, NABILA FLORESOME Primary Care Unavailab le NAUMOFF, NABILA FLORESOME Primary Care Unavailab le MASCI, SCHUYLER A Referring Unavailable NAUMOFF, NABILA FLORESOME Primary Care Unavailab le MASCI, SCHUYLER A Referring Unavailable NAUMOFF, NABILA FLORESOME Primary Care Unavailab le MASCI, SCHUYLER A Referring Unavailable NAUMOFF, NABILA FLORESOME Primary Care Unavailab le NAUMOFF, NABILA FLORESOME Primary Care Unavailab le NAUMOFF, NABILA GALLAGHER Primary Care Unavailab le NAUMOFF, NABILA GALLAGHER Primary Care Unavailab le MASCI, SCHUYLER A Referring Unavailable NAUMOFF, NABILA GALLAGHER Primary Care Unavailab le MASCI, SCHUYLER A Referring Unavailable NAUMOFF, NABILA FLORESOME Primary Care Unavailab CLEMENTINA Cisneros Attending Unavailable MASCI, SCHUYLER A Referring Unavailable MASCI, SCHUYLER A Referring Unavailable NAUMOFF, NABILA GALLAGHER Primary Care Unavailab le NAUMOFF, NABILA GALLAGHER Primary Care Unavailab le MASCI, SCHUYLER A Referring Unavailable MASCI, SCHUYLER A Referring Unavailable NAUMOFF, NABILA GALLAGHER Primary Care Unavailab le NAUMOFF, NABILA GALLAGHER Primary Care Unavailab le FATICA, EDGARDO Attending Unavailable NAUMOFF, NABILA GALLAGHER Primary Care Unavailab le NAUMOFF, NABILA GALLAGHER Primary Care Unavailab le MASCI, SCHUYLER A Referring Unavailable NAUMOFF, NABILA GALLAGHER Primary Care Unavailab le MASCI, SCHUYLER A Referring Unavailable NAUMOFF, NABILA GALLAGHER Primary Care Unavailab le MASCI, SCHUYLER A Attending Unavailable NAUMOFF, NABILA GALLAGHER Primary Care Unavailab le NAUMOFF, NABILA GALLAGHER Primary Care Unavailab le MASCI, SCHUYLER A Referring Unavailable NAUMOFF, NABILA GALLAGHER Primary Care Unavailab le MASCI, SCHUYLER A Referring Unavailable NAUMOFF, NABILA GALLAGHER Primary Care Unavailab le NAUMOFF, NABILA GALLAGHER Primary Care Unavailab le NAUMOFF, NABILA GALLAGHER Primary Care Unavailab le FATICA, EDGARDO Referring Unavailable Allergies Allergy Classification Reported Allergen(s) Allergy Type Date of Onset Reaction(s) Facility (20 sources) Sulfonamides (Antibiotic); Translations: [SULFA (SULFONAMIDE ANTIBIOTICS)] Propensity to adverse reactions to drug (disorder) 5 Mental Status Change [facility] Repository (3 sources) cefdinir; Translations: [cefdinir] Drug Allergy Weal (disorder) [facility] (3 sources) Sulfonamides (Antibiotic); Translations: [sulfa drugs] Drug allergy Restlessness (finding) [facility] Medications Current Medications Medication Drug Class(es) Dates Sig (Normalized) Sig (Original) [id number] 200 actuat albuterol 0.09 mg/actuat metered dose inhaler (20 sources) beta2-Adrenergic Agonist Start: 04-27-2023 take 2 puff(s) by inhalation every four hours as needed for wheezing albuterol HFA (PROVENTIL HFA, VENTOLIN HFA) 90 mcg/actuation inhaler Inhale 2 Puffs as instructed every 4 hours as needed for wheezing/shortness of breath. 1 Each 04/27/2023 Active Comment on above: Inhale 2 Puffs as in structed every 4 hours as needed for wheezing/shortness of breath. allopurinol 100 mg oral tablet (20 sources) Xanthine Oxidase Inhibitor Start: 03-20-2021 allopurinol 100 mg oral tablet Dose : 200 mg = 2 tab(s), Oral, qDay, # 180 tab(s), 0 Refill(s) Start Date: 03/20/21 Status: Ordered Start: 02-11-2021 End: 02-13-2023 take 2 tablets by mouth once daily allopurinol (ZYLOPRIM) 100 mg tablet Take 2 tablets by mouth once daily. 180 tablet 3 02/13/2023 Active Comment on above: TAKE 2 TABLETS BY MO [facility] ONCE DAILY Take 2 tablets by mo [facility] once daily. amLODIPine 10 mg oral tablet (20 sources) Dihydropyridine Calcium Channel Alix Start: take 1 tablet by mouth once daily amLODIPine (NORVASC) 10 mg tablet take 1 tablet by mouth every day 90 tablet 3 10/19/2023 Active Start: 03-20-2021 End: 09-01-2022 take 1 tablet by mouth once daily amLODIPine (NORVASC) 10 mg tablet Take 1 tablet by mouth once daily. 90 tablet 3 09/02/2022 Active Comment on above: TAKE 1 TABLET BY BRYSON EVERY DAY Take 1 tablet by bryson once daily. amoxicillin 875 mg / clavulanate 125 mg oral tablet (20 sources) Penicillin-class Antibacterial Start: End: take 1 tablet by mouth twice daily amoxicillin-clavulanat e potassium (AUGMENTIN) 875-125 mg per tablet Take 1 tablet by mouth two times a day for 7 days. 14 tablet 0 01/13/2024 01/20/2024 Active Comment on above: Take 1 tablet by bryson twice daily. Take 1 tablet by bryson two times a day for 7 days. biotin 10 mg oral capsule (20 sources) Biotin 10,000 mc g cap Take 1 capsule by mouth as needed. Active Comment on above: Take 1 capsule by mo [facility] once daily. carvedilol 12.5 mg oral tablet (20 sources) alpha-Adrenergic Alix, beta-Adrenergic Alix Start: End: 12-07-2 023 take 1 tablet by mouth twice daily carvedilol (COREG) 12.5 mg tablet Take 1 tablet by mouth two times a day. 120 tablet 11 10/22/2023 Active Comment on above: TAKE 1 TABLET BY BRYSON TH TWICE A DAY Take 1 tablet by bryson th two times a day. cholecalciferol 0.05 mg oral tablet (20 sources) Vitamin D cholecalciferol (VITAMIN D3) 50 mcg (2,000 unit) tablet Take 2,000 Units by mouth as needed. Active take 1 tablet by mouth once jose y cholecalciferol (VITAMIN D3) 50 mcg (2,000 unit) tablet Take 2,000 Units by mouth once daily. Active Comment on above: Take 2,000 Units by mouth once daily. Aranesp (3 sources) Erythropoiesis-stimu lating Agent Start: 2022 Aranesp PRN Hemodynamic support, 0 Refill(s), 62.1 Start Date: 10/29/22 Status: Ordered DARBEPOETIN IRLANDA IN ALBUMN ODELL (ARANESP INJECTION) (20 sources) DARBEPOETIN IRLANDA IN ALBUMN ODELL (ARANESP INJECTION) by INJECTION(UNSPECIFIED PARENTERAL ROUTES) route. Active DARBEPOETIN IRLANDA IN ALBUMN ODELL (ARANESP INJECTION) by INJECTION(UNSPECIFIED PARENTERAL ROUTES) route. 0 Active Comment on above: by INJECTION(UNSPECI FIED PARENTERAL ROUTES) route. famotidine 20 mg oral tablet (20 sources) Histamine-2 Receptor Antagonist Start: 10-14-20 End: 12-28-19 24 take 1 tablet by mouth every twelve hours famotidine (PEPCID) 20 mg tablet take 1 tablet by mouth twice a day 180 tablet 3 12/28/2023 Active Start: 12-03-2021 take 1 tablet by bryson twice daily famotidine (PEPCID) 20 mg tablet Take 1 tablet by mouth twice daily. 180 tablet 3 12/03/2021 Active Comment on above: Take 1 tablet by bryson twice daily. TAKE 1 TABLET BY BRYSON TWICE A DAY ferrous sulfate 325 mg oral tablet (20 sources) Start: 03-20-2021 IRON (ferrous sulfate 325 mg) 65 mg oral tablet Dose : 325 mg = 1 tab(s), Oral, BIDM, Take with food., # 60 tab(s), 3 Refill(s) Start Date: 03/20/21 Status: Ordered Start: 09-28-2013 take 1 tablet by bryson th twice daily Ferrous Sulfate (IRON) 325 mg (65 mg iron) tablet Indications: Acquired hemolytic anemia, unspecified (HCC) , Encounter for long-term (current) use of high-risk medication Take 1 tablet by mouth twice daily. 09/28/2013 Active Comment on above: Take 1 tablet by bryson th twice daily. Folic Acid (20 sources) Start: 03-20-2021 folic acid qDa y, 0 Refill(s) Start Date: 03/20/21 Status: Ordered End: 05-31-2024 take 1 tablet by mouth once daily folic acid 1 mg tablet Take 1 mg by mouth once daily. 0 05/31/2024 Discontinued Comment on above: Take 1 mg by mouth o nce daily. furosemide 20 mg oral tablet (20 sources) Loop Diuretic Start: 03-20-20 End: 12-28-19 24 take 1 tablet by mouth once daily as needed for edema furosemide (LASIX) 20 mg tablet TAKE 1 TABLET BY MOUTH DAILY NEEDED FOR EDEMA. 90 tablet 3 12/28/2023 Active Comment on above: TAKE 1 TABLET BY BRYSON TH DAILY NEEDED FOR EDEMA TAKE 1 TABLET BY BRYSON TH DAILY NEEDED FOR EDEMA. heparin (20 sources) Unfractionated Heparin, Anti-coagulant Start: 04-20-20 19 heparin 100 unit/mL injection Access implanted vascular access device (IVAD) as needed for flush, blood draw or treatment. Before de-accessing port, flush with 10-20ml normal saline and follow with 5 mL heparin (100 units/mL) (if no heparin allergy). De-access port on treatment completion. 5 mL 50 04/20/2019 Active Comment on above: Access implanted vas cular access device (IVAD) as needed for flush, blood draw or treatment. Before de-accessing port, flush with 10-20ml normal saline and follow with 5 mL heparin (100 units/mL) (if no heparin allergy). De-access port on treatment completion. levothyroxine sodium 0.05 mg oral tablet (20 sources) l-Thyroxine Start: 03-20-20 End: 02-21-20 22 take 1 tablet by mouth once daily levothyroxine (SYNTHROID) 50 mcg tablet TAKE 1 TABLET BY MOUTH EVERY DAY 90 tablet 3 02/20/2022 Active Start: 03-20-2021 levothyroxine 50 mcg (0.05 mg) oral tablet Dose : 50 mcg = 1 tab(s), Oral, qDay, # 30 tab(s), 0 Refill(s) Start Date: 03/20/21 Status: Ordered Comment on above: Take 1 tablet by bryson th once daily. TAKE 1 TABLET BY BRYSON TH EVERY DAY metroNIDAZOLE 500 mg oral tablet (1 source) Nitroimidazole Antimicrobial Start: 09-08-20 End: 09-08-20 take 1 tablet by mouth three times daily metroNIDAZOLE (FLAGYL) 500 mg tablet Take 1 tablet by mouth three times daily for 10 days. 30 tablet 0 09/08/2022 09/08/2022 Discontinued Comment on above: Take 1 tablet by bryson th three times daily for 10 days. Multivitamin capsule (20 sources) take 1 capsule by mouth once daily Multivitamin capsule Take 1 capsule by mouth once daily. Active take 1 capsule by mouth once antonia ly Multivitamin capsule Take 1 capsule by mouth once daily. 0 Active Comment on above: Take 1 capsule by mo uth once daily. mycophenolate mofetil 250 mg oral capsule (20 sources) Start: 2 End: 3 take 2 capsules by mouth twice daily mycophenolate mofetil (CELLCEPT) 250 mg capsule Indications: Kidney replaced by transplant TAKE 2 CAPSULES BY MOUTH TWICE DAILY. 120 capsule 11 09/06/2023 Active Start: 08-16-2021 take 2 capsules by m outh twice daily mycophenolate mofetil (CELLCEPT) 250 mg capsule Indications: Kidney replaced by transplant TAKE 2 CAPSULES BY MOUTH TWICE DAILY. Z94.0 KIDNEY TRANSPLANT 360 capsule 3 08/16/2021 Active Start: 03-20-2021 mycophenolate mofetil 250 mg oral capsule 0 Refill(s) Start Date: 03/20/21 Status: Ordered Comment on above: TAKE 2 CAPSULES BY M OUTH TWICE DAILY. Z94.0 KIDNEY TRANSPLANT TAKE 2 CAPSULES BY M OUTH TWICE DAILY. polyethylene glycol 3350 885304 mg / potassium chloride 2970 mg / sodium bicarbonate 6740 mg / sodium chloride 5860 mg / sodium sulfate 26635 mg powder for oral solution (4 sources) Osmotic Laxative Start: 4 End: 4 peg 3350-Electrolytes (GOLYTELY) 236-22.74-6.74 -5.86 gram suspension Indications: Screen for colon cancer Take 4,000 mL by mouth one time only for 1 dose. Refer to printed prep instructions from your provider. 4000 mL 09/06/2024 09/06/2024 Active predniSONE 5 mg oral tablet (20 sources) Start: 3 End: 3 take 1 tablet by mouth once daily predniSONE (DELTASONE) 5 mg tablet Indications: Kidney replaced by transplant take 1 tablet by mouth every day 90 tablet 3 11/05/2023 Active Start: 2022 predniSONE 5 m g oral delayed release tablet Dose : 5 mg = 1 tab(s), Oral, qDayM, 0 Refill(s) Start Date: 10/29/22 Status: Ordered Start: 06-10-2022 take 1 tablet by bryson th once daily predniSONE (DELTASONE) 5 mg tablet Indications: Kidney replaced by transplant TAKE 1 TABLET BY MOUTH EVERY DAY 30 tablet 11 06/10/2022 Active Start: 03-20-2021 End: 06-04-2022 take 1 tablet by mouth once daily predniSONE (DELTASONE) 5 mg tablet Take 1 tablet by mouth once daily. 90 tablet 3 03/20/2021 06/04/2022 Discontinued Comment on above: Take 1 tablet by bryson th once daily. TAKE 1 TABLET BY BRYSON TH EVERY DAY Prescription MISCellaneous (6 sources) Start: 03-20-2021 Prescription MISCellaneous See Instructions, Bio Identity Hormone treatment injection, # 1 EA, 11 Refill(s) Start Date: 03/20/21 Status: Ordered Start: 03-20-2021 Prescription M ISCellaneous See Instructions, Progesterone tablet, # 1 EA, 11 Refill(s) Start Date: 03/20/21 Status: Ordered Progesterone (20 sources) Progesterone PROGESTERONE MIS C 1 capsule. Daily Active PROGESTERONE MIS C 1 capsule. Daily 0 Active Comment on above: 1 capsule. Daily simvastatin 20 mg oral tablet (20 sources) HMG-CoA Reductase Inhibitor Start: 03-20-20 take 1 tablet by mouth once daily simvastatin (ZOCOR) 20 mg tablet TAKE 1 TABLET BY MOUTH EVERY DAY 90 tablet 3 06/02/2022 Active Comment on above: Take 1 tablet by bryson once daily. TAKE 1 TABLET BY BRYSON EVERY DAY Sodium Chloride (20 sources) Start: 04-20-20 19 0.9 % sodium chloride (0.9% NACL) Access implanted vascular access device (IVAD) as needed for flush, blood draw or treatment. Flush IVAD with 10-20 mL NS every 4 weeks and PRN when IVAD not in use. 2 Syringe 50 04/20/2019 Active Comment on above: Access implanted vas cular access device (IVAD) as needed for flush, blood draw or treatment. Flush IVAD with 10-20 mL NS every 4 weeks and PRN when IVAD not in use. tacrolimus 1 mg oral capsule (20 sources) Calcineurin Inhibitor Immunosuppressant Start: 03-20-20 End: 08-03-20 24 tacrolimus IR (PROGRAF) 1 mg capsule Indications: Kidney replaced by transplant TAKE 2 CAPSULES IN AM AND 3 CAPSULES IN PM 450 capsule 3 08/03/2024 Active Comment on above: TAKE 2 MG IN THE AM, 3MG IN THE PM ON 12 HOUR SCHEDULE. Take 2 capsules in A M and 3 capsules in PM vancomycin 125 mg oral capsule (3 sources) Glycopeptide Antibacterial Start: 09-07-20 End: 09-17-20 take 1 capsule by mouth four times daily vancomycin (VANCOCIN) 125 mg capsule Take 1 capsule by mouth four times daily for 10 days. 40 capsule 0 09/07/2022 09/17/2022 Active Comment on above: Take 1 capsule by mo [facility] four times daily for 10 days. Vitamin D3 (3 sources) Start: 03-20-20 Vitamin D3 qDay, 0 Refill(s) Start Date: 03/20/21 Status: Ordered Completed/Discontinued Medications Medication Drug Class(es) Dates Sig (Normalized) Sig (Original) Epoetin [place] (4 sources) Erythropoiesis-sti mulating Agent Start: 07-26-2024 End: 07-26-2024 inject 1 dose by subcutaneous injection once 10,000 Units, SUBCUTANEOUS, ONCE, 1 dose, On Thu07/26/24 at 1100, Refrigerate - Protect From Light - Do Not Shake Start: 06-28-2024 End: 06-28-2024 epoetin [place]-epbx 10,000 Uni ts injection (RETACRIT) Start: 06-14-2024 End: 06-14-2024 epoetin [place]-epbx 10,000 Uni ts injection (RETACRIT) Start: 05-03-2024 End: 05-03-2024 epoetin [place]-epbx 10,000 Uni ts injection (RETACRIT) flaxseed oil (OMEGA 3 ORAL) (20 sources) End: 05-31-2024 take 2 capsules by mouth once daily flaxseed oil (OMEGA 3 ORAL) Take 2 capsules by mouth once daily. 0 05/31/2024 Discontinued take 2 capsules by mouth once da nabor flaxseed oil (OMEGA 3 ORAL) Take 2 capsules by mouth once daily. 0 Active Comment on above: Take 2 capsules by m outh once daily. gabapentin 100 mg oral capsule (2 sources) Anti-epileptic Agent Start: End: 4 take 2 capsules by mouth once daily at bedtime gabapentin (NEURONTIN) 100 mg capsule Take 2 capsules by mouth daily at bedtime for 90 days. 60 capsule 2 12/03/2023 12/29/2023 Discontinued Comment on above: Take 2 capsules by m outh daily at bedtime for 90 days. L gasseri/B bifidum/B longum (PROBIOTIC COLON CARE ORAL) (20 sources) End: 4 take 2 capsules by mouth once daily L gasseri/B bifidum/B longum (PROBIOTIC COLON CARE ORAL) Take 2 capsules by mouth once daily. 0 05/31/2024 Discontinued take 2 capsules by mouth once da nabor L gasseri/B bifidum/B longum (PROBIOTIC COLON CARE ORAL) Take 2 capsules by mouth once daily. 0 Active Comment on above: Take 2 capsules by m outh once daily. Problems Active Problems Problem Classification Problem Date Documented Da te Episodic/Chronic Cancer of other female genital organs (20 sources) Malignant neoplasm of uterine adnexa; Translations: [Malignant neoplasm of uterine adnexa, unspecified] 09-25-2010 Chronic Chronic kidney disease (20 sources) Anemia of chronic renal failure; Translations: [Chronic kidney disease, unspecified] Onset: 5 Resolved: 3 Chronic Coagulation and hemorrhagic disorders (20 sources) Platelet count below reference range; Translations: [Thrombocytopenia, unspecified] Chronic Complication of device; implant or graft (20 sources) Disorder of transplanted kidney; Translations: [Kidney transplant infection] Onset: 0 02-12-2020 Chronic Complication of device; implant or graft (1 source) Mechanical complication of dialysis catheter; Translations: [Other complication of vascular dialysis catheter, initial encounter] Episodic Deficiency and other anemia (20 sources) Acquired hemolytic anemia; Translations: [Acquired hemolytic anemia, unspecified] 11-11-2021 Chronic Deficiency and other anemia (2 sources) Anemia in chronic kidney disease; Translations: [Anemia in stage 4 chronic kidney disease (HCC) (HCC)] Onset: 1 Chronic Deficiency and other anemia (1 source) Acquired hemolytic anemia, unspecified; Translations: [Acquired hemolytic anemia, unspecified (HCC)] Onset: 1 Chronic Diabetes mellitus without complication (20 sources) Diabetes mellitus; Translations: [Type 2 diabetes mellitus without complications] 09-25-2010 Chronic Diseases of white blood cells (20 sources) Neutropenia; Translations: [Neutropenia, unspecified] Onset: 7 Resolved: 1 01-13-2011 Chronic Disorders of lipid metabolism (20 sources) Mixed hyperlipidemia; Translations: [Mixed hyperlipidemia] Onset: 5 11-11-2021 Chronic Essential hypertension (20 sources) Benign essential hypertension; Translations: [Essential (primary) hypertension] Onset: 5 Chronic Gout and other crystal arthropathies (3 sources) Gout; Translations: [Gout, unspecified] Onset: 4 06-28-2024 Chronic Hypertension with complications and secondary hypertension (20 sources) Hypertensive heart and chronic kidney disease without heart failure, with stage 5 chronic kidney disease, or end stage renal disease; Translations: [Hypertensive heart and chronic kidney disease, unspecified, without heart failure and with chronic kidney disease stage V or end stage renal disease] Chronic Intestinal infection (2 sources) Infectious diarrheal disease; Translations: [Infectious gastroenteritis and colitis, unspecified] Episodic Joint disorders and dislocations; trauma-related (20 sources) Loose body in knee, unspecified knee; Translations: [Loose body in knee] Onset: 8 08-30-2018 Chronic Menopausal disorders (1 source) Postmenopausal bleeding; Translations: [Postmenopausal bleeding] Chronic Menopausal disorders (1 source) Hormone replacement therapy; Translations: [Hormone replacement therapy (postmenopausal)] Episodic Nephritis; nephrosis; renal sclerosis (20 sources) Kidney disease; Translations: [Unspecified nephritic syndrome with other morphologic changes] Onset: 5 Resolved: 8 09-01-2018 Chronic Nutritional deficiencies (13 sources) Vitamin D deficiency; Translations: [Vitamin D deficiency, unspecified] Onset: 4 06-10-2023 Chronic Osteoarthritis (20 sources) Osteoarthritis of knee; Translations: [Unilateral primary osteoarthritis, unspecified knee] Onset: 9 11-22-2018 Chronic Osteoporosis (3 sources) Osteoporosis 03-18-2021 Chronic Other aftercare (13 sources) Transplant follow-up; Translations: [Encounter for aftercare following other organ transplant] Chronic Other aftercare (1 source) Encounter for aftercare following other organ transplant; Translations: [Aftercare following organ transplant] Onset: Chronic Other aftercare (17 sources) Patient encounter status; Translations: [Encounter for therapeutic drug level monitoring] Episodic Other aftercare (20 sources) Transplant follow-up; Translations: [Other nursing home (current) drug therapy] Episodic Other aftercare (12 sources) Long-term current use of immunosuppressive drug; Translations: [Long-term use of immunosuppressant medication] 06-10-2023 Episodic Other and unspecified benign neoplasm (1 source) Melanocytic nevus of skin ; Translations: [Melanocytic nevi, unspecified] 03-15-2024 Episodic Other bone disease and musculoskeletal deformities (1 source) Osteonecrosis, unspecified; Translations: [Osteonecrosis, unspecified] Onset: 8 Chronic Other bone disease and musculoskeletal deformities (20 sources) Bone necrosis; Translations: [Osteonecrosis, unspecified] Onset: 8 08-24-2018 Chronic Other bone disease and musculoskeletal deformities (20 sources) Avascular necrosis of bone; Translations: [Osteonecrosis, unspecified] Onset: 8 08-24-2018 Chronic Other gastrointestinal disorders (1 source) Diarrhea of presumed infectious origin; Translations: [Diarrhea, unspecified] Episodic Other inflammatory condition of skin (3 sources) Lupus erythematosus 03-18-2021 Chronic Other inflammatory condition of skin (1 source) Discoid lupus erythematosus; 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 Other nervous system disorders (1 source) Other acute postprocedural pain; Translations: [Other acute postprocedural pain] Onset: 9 Episodic Other nutritional; endocrine; and metabolic disorders (2 sources) Hyperuricemia; Translations: [Hyperuricemia without signs of inflammatory arthritis and tophaceous disease] 06-28-2024 Episodic Other nutritional; endocrine; and metabolic disorders (1 source) Hyperuricemia without signs of inflammatory arthritis and tophaceous disease; Translations: [Hyperuricemia] Onset: 4 Episodic Other upper respiratory infections (1 source) Chronic sinusitis, unspecified; Translations: [Unspecified sinusitis (chronic)] 01-13-2024 Chronic Other upper respiratory infections (3 sources) Sore throat symptom; Translations: [Acute pharyngitis, unspecified] Episodic Ovarian cyst (20 sources) Corpus luteum cyst; Translations: [Corpus luteum cyst of ovary, unspecified side] 09-25-2010 Episodic Systemic lupus erythematosus and connective tissue disorders (20 sources) Systemic lupus erythematosus; Translations: [Systemic lupus erythematosus, unspecified] Onset: 0 02-12-2020 Chronic Thyroid disorders (20 sources) Hypothyroidism; Translations: [Hypothyroidism, unspecified] Onset: 0 02-12-2020 Chronic Unclassified (1 source) Blood Draw (CVAD) Onset: 4 Unclassified (1 source) Long-term use of immunosuppressant medication; Translations: [Long-term use of immunosuppressant medication] Onset: 4 Unclassified (1 source) Acute cough; Translations: [Acute cough] Onset: 4 Past or Other Problems Problem Classification Problem Date Documented Da te Episodic/Chronic Complications of surgical procedures or medical care (20 sources) Post dural puncture headache; 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] Onset: 06-10-2013 Resolved: 09-28-2013 09-28-2013 Episodic Deficiency and other anemia (20 sources) Anemia; Translations: [Anemia, unspecified] Onset: 04-11-2009 Resolved: 11-21-2011 03-18-2021 Episodic Genitourinary symptoms and ill-defined conditions (2 sources) Persistent proteinuria; Translations: [Persistent proteinuria, unspecified] Onset: 12-29-2023 12-29-2023 Episodic Other aftercare (1 source) Encounter for therapeutic drug level monitoring; Translations: [Therapeutic drug monitoring] Onset: 12-29-2023 Episodic Other aftercare (1 source) Other nursing home (current) drug therapy; Translations: [Immunosuppressive management encounter following kidney transplant] Onset: 12-29-2023 Episodic Other lower respiratory disease (20 sources) Cough; Translations: [Cough] Resolved: 09-28-2013 09-28-2013 Episodic Phlebitis; thrombophlebitis and thromboembolism (20 sources) H/O: Deep vein thrombosis; Translations: [Personal history of other venous thrombosis and embolism] Onset: 09-07-2018 09-07-2018 Episodic Pneumonia (except that caused by tuberculosis or sexually transmitted disease) (20 sources) Legionella pneumonia; 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] Resolved: 09-28-2013 09-28-2013 Episodic Residual codes; unclassified (20 sources) Prevention status; Translations: [Need for prophylactic immunotherapy] Onset: 06-13-2011 Resolved: 09-28-2013 09-28-2013 Episodic Residual codes; unclassified (20 sources) Viral syndrome; Translations: [Other general symptoms and signs] Onset: 02-22-2015 Resolved: 02-28-2015 11-11-2021 Episodic Skin and subcutaneous tissue infections (20 sources) Cellulitis; Translations: [Cellulitis, unspecified] Onset: 01-11-2019 01-15-2019 Episodic Unclassified (20 sources) SUMMARY Onset: 02-22-2015 Resolved: 09-01-2018 11-11-2021 Unclassified (20 sources) Drug therapy finding; Translations: [DVT prophylaxis] Onset: 02-22-2015 Resolved: 02-28-2015 11-11-2021 Urinary tract infections (20 sources) Pyelonephritis; Translations: [Tubulo-interstitia l nephritis, not specified as acute or chronic] Onset: 03-17-2013 Resolved: 09-01-2018 02-12-2020 Episodic Viral infection (13 sources) Disease due to BK polyomavirus; Translations: [Other viral infections of unspecified site] Onset: 12-29-2023 06-10-2023 Episodic Results Test Name Value Interpretation Reference Range Facility CBC W Auto Differential pane l (Bld)on 09-06-2024 Basophils (Bld) [#/Vol] [facility] Basophils/100 WBC (Bld) 0.1 % [facility] Differential cell count method Nom (Bld) Auto [facility] Eosinophils (Bld) [#/Vol] 0.10 10*3/uL [facility] Eosinophils/100 WBC (Bld) 1.4 % [facility] Erythrocyte distribution width (RBC) [Ratio] 13.4 % 11.5 - 15.0 % [facility] Hematocrit (Bld) [Volume fraction] 30.6 % Low 36.0 - 46.0 % [facility] Hemoglobin (Bld) [Mass/Vol] 10.2 g/dL Low 11.5 - 15.5 g/dL [facility] Immature granulocytes (Bld) [#/Vol] [facility] Immature granulocytes/100 WBC (Bld) 0.3 % [facility] Interpretation and review of laboratory results Abnormal [facility] Lymphocytes (Bld) [#/Vol] 1.30 10*3/uL [facility] Lymphocytes/100 WBC (Bld) 18.8 % [facility] MCH (RBC) [Entitic mass] 28.2 pg 26.0 - 34.0 pg [facility] MCHC (RBC) [Mass/Vol] 33.3 g/dL 30.5 - 36.0 g/dL [facility] MCV (RBC) [Entitic vol] 84.5 fL 80.0 - 100.0 fL [facility] Monocytes (Bld) [#/Vol] 0.68 10*3/uL [facility] Monocytes/100 WBC (Bld) 9.8 % [facility] Neutrophils (Bld) [#/Vol] 4.80 10*3/uL [facility] Neutrophils/100 WBC (Bld) 69.6 % [facility] Nucleated RBC (Bld) [#/Vol] [facility] Nucleated RBC/100 WBC (Bld) [Ratio] 0.0 % /100 WBC [facility] Platelet mean volume (Bld) [Entitic vol] 9.0 fL 9.0 - 12.7 fL [facility] Platelets (Bld) [#/Vol] 203 10*3/uL [facility] RBC (Bld) [#/Vol] 3.62 10*6/uL Low 3.90 - 5.2 0 m/uL [facility] WBC (Bld) [#/Vol] 6.91 10*3/uL [facility] Comprehensive metabolic 2000 panelOrdered By: Farrah Devine on 09-06-2024 Albumin [Mass/Vol] 4.5 g/dL 3.9 - 4.9 g/dL [facility] ALP [Catalytic activity/Vol] 97 U/L 34 - 123 U/L [facility] ALT [Catalytic activity/Vol] 9 U/L 7 - 38 U/L [facility] Anion gap [Moles/Vol] 13 mmol/L 8 - 15 mmol/L [facility] AST [Catalytic activity/Vol] 10 U/L Low 13 - 35 U/L [facility] Bilirubin [Mass/Vol] mg/dL Low 0.2 - 1 .3 mg/dL [facility] Calcium [Mass/Vol] 10.0 mg/dL 8.5 - 10. 2 mg/dL [facility] Chloride [Moles/Vol] 109 mmol/L High 98 - 10 7 mmol/L [facility] CO2 [Moles/Vol] 16 mmol/L Low 22 - 30 mmol/L [facility] Creatinine [Mass/Vol] 1.80 mg/dL High 0.58 - 0.96 mg/dL [facility] GFR/1.73 sq M.predicted among non-blacks MDRD (S/P/Bld) [Vol rate/Area] 34 mL/min/{1.73_m2} Low - PINF [facility] Comment on above: Estimated Glomerular Filtration Rate (eGFR) is calculated using the 2020 CKD-EPI creatinine equation. This equation utilizes serum creatinine, sex, and age as parameters. The creatinine assay has traceable calibration to isotope dilution-mass spectrometry. Refer to KDIGO guidelines for clinical interpretation. In patients with unstable renal function, e.g. those with acute kidney injury, the eGFR may not accurately reflect actual GFR. Glucose [Mass/Vol] 113 mg/dL High 74 - 99 mg/dL [facility] Comment on above: The [place] [employer] (ADA) provides guidance for cutoff values for fasting glucose and random glucose. The ADA defines fasting as no caloric intake for at least 8 hours. Fasting plasma glucose results between 100 to 125 [...] Standards of Medical Care in Diabetes 2016, [place] [employer]. Diabetes Care. 2016.39(Suppl 1). Interpretation and review of laboratory results Abnormal [facility] Potassium [Moles/Vol] 4.3 mmol/L 3.7 - 5.1 mmol/L [facility] Protein [Mass/Vol] 7.3 g/dL 6.3 - 8.0 g/dL [facility] Sodium [Moles/Vol] 138 mmol/L 136 - 144 mmol/L [facility] Urea nitrogen [Mass/Vol] 36 mg/dL High 7 - 21 mg/dL [facility] STREP A MOLECULAR (POC)on Procedural Control Valid [facility] Strep A (POCT) Negative Negative [facility] CBC panel Auto (Bld)on 08-23 Erythrocyte distribution width (RBC) [Ratio] 13.3 % 11.5 - 15.0 % [facility] Hematocrit (Bld) [Volume fraction] 30.2 % Low 36.0 - 46.0 % [facility] Hemoglobin (Bld) [Mass/Vol] 10.2 g/dL Low 11.5 - 15.5 g/dL [facility] Interpretation and review of laboratory results Abnormal [facility] MCH (RBC) [Entitic mass] 28.1 pg 26.0 - 34.0 pg [facility] MCHC (RBC) [Mass/Vol] 33.8 g/dL 30.5 - 36.0 g/dL [facility] MCV (RBC) [Entitic vol] 83.2 fL 80.0 - 100.0 fL [facility] Nucleated RBC (Bld) [#/Vol] NINF [facility] Platelet mean volume (Bld) [Entitic vol] 10.0 fL 9.0 - 12.7 fL [facility] Platelets (Bld) [#/Vol] 138 10*3/uL Low [facility] RBC (Bld) [#/Vol] 3.63 10*6/uL Low 3.90 - 5.2 0 m/uL [facility] WBC (Bld) [#/Vol] 4.50 10*3/uL [facility] Comprehensive metabolic 2000 panelOrdered By: Farrah Devine on 08-23-2024 Albumin [Mass/Vol] 4.6 g/dL 3.9 - 4.9 g/dL [facility] ALP [Catalytic activity/Vol] 77 U/L 34 - 123 U/L [facility] ALT [Catalytic activity/Vol] 8 U/L 7 - 38 U/L [facility] Anion gap [Moles/Vol] 13 mmol/L 8 - 15 mmol/L [facility] AST [Catalytic activity/Vol] 8 U/L Low 13 - 35 U/L [facility] Bilirubin [Mass/Vol] 0.2 mg/dL 0.2 - 1 .3 mg/dL [facility] Calcium [Mass/Vol] 9.7 mg/dL 8.5 - 10. 2 mg/dL [facility] Chloride [Moles/Vol] 108 mmol/L High 98 - 10 7 mmol/L [facility] CO2 [Moles/Vol] 19 mmol/L Low 22 - 30 mmol/L [facility] Creatinine [Mass/Vol] 2.08 mg/dL High 0.58 - 0.96 mg/dL [facility] GFR/1.73 sq M.predicted among non-blacks MDRD (S/P/Bld) [Vol rate/Area] 29 mL/min/{1.73_m2} Low - PINF [facility] Comment on above: Estimated Glomerular Filtration Rate (eGFR) is calculated using the 2020 CKD-EPI creatinine equation. This equation utilizes serum creatinine, sex, and age as parameters. The creatinine assay has traceable calibration to isotope dilution-mass spectrometry. Refer to KDIGO guidelines for clinical interpretation. In patients with unstable renal function, e.g. those with acute kidney injury, the eGFR may not accurately reflect actual GFR. Glucose [Mass/Vol] 101 mg/dL High 74 - 99 mg/dL [facility] Comment on above: The [place] [employer] (ADA) provides guidance for cutoff values for fasting glucose and random glucose. The ADA defines fasting as no caloric intake for at least 8 hours. Fasting plasma glucose results between 100 to 125 [...] Standards of Medical Care in Diabetes 2016, [place] [employer]. Diabetes Care. 2016.39(Suppl 1). Interpretation and review of laboratory results Abnormal [facility] Potassium [Moles/Vol] 4.4 mmol/L 3.7 - 5.1 mmol/L [facility] Protein [Mass/Vol] 6.8 g/dL 6.3 - 8.0 g/dL [facility] Sodium [Moles/Vol] 140 mmol/L 136 - 144 mmol/L [facility] Urea nitrogen [Mass/Vol] 50 mg/dL High 7 - 21 mg/dL [facility] CBC panel Auto (Bld)on 08-09 Erythrocyte distribution width (RBC) [Ratio] 14.0 % 11.5 - 15.0 % [facility] Hematocrit (Bld) [Volume fraction] 32.3 % Low 36.0 - 46.0 % [facility] Hemoglobin (Bld) [Mass/Vol] 10.6 g/dL Low 11.5 - 15.5 g/dL [facility] Interpretation and review of laboratory results Abnormal [facility] MCH (RBC) [Entitic mass] 27.9 pg 26.0 - 34.0 pg [facility] MCHC (RBC) [Mass/Vol] 32.8 g/dL 30.5 - 36.0 g/dL [facility] MCV (RBC) [Entitic vol] 85.0 fL 80.0 - 100.0 fL [facility] Nucleated RBC (Bld) [#/Vol] NINF [facility] Platelet mean volume (Bld) [Entitic vol] 9.4 fL 9.0 - 12.7 fL [facility] Platelets (Bld) [#/Vol] 163 10*3/uL [facility] RBC (Bld) [#/Vol] 3.80 10*6/uL Low 3.90 - 5.2 0 m/uL [facility] WBC (Bld) [#/Vol] 4.79 10*3/uL [facility] CBC W Auto Differential pane l (Bld)on 07-26-2024 Basophils (Bld) [#/Vol] [facility] Basophils/100 WBC (Bld) 0.3 % [facility] Differential cell count method Nom (Bld) Auto [facility] Eosinophils (Bld) [#/Vol] [facility] Eosinophils/100 WBC (Bld) 0.3 % [facility] Erythrocyte distribution width (RBC) [Ratio] 13.0 % 11.5 - 15.0 % [facility] Hematocrit (Bld) [Volume fraction] 29.3 % Low 36.0 - 46.0 % [facility] Hemoglobin (Bld) [Mass/Vol] 9.8 g/dL Low 11.5 - 15.5 g/dL [facility] Immature granulocytes (Bld) [#/Vol] [facility] Immature granulocytes/100 WBC (Bld) 0.3 % [facility] Interpretation and review of laboratory results Abnormal [facility] Lymphocytes (Bld) [#/Vol] 1.23 10*3/uL [facility] Lymphocytes/100 WBC (Bld) 36.4 % [facility] MCH (RBC) [Entitic mass] 28.1 pg 26.0 - 34.0 pg [facility] MCHC (RBC) [Mass/Vol] 33.4 g/dL 30.5 - 36.0 g/dL [facility] MCV (RBC) [Entitic vol] 84.0 fL 80.0 - 100.0 fL [facility] Monocytes (Bld) [#/Vol] 0.39 10*3/uL [facility] Monocytes/100 WBC (Bld) 11.5 % [facility] Neutrophils (Bld) [#/Vol] 1.73 10*3/uL [facility] Neutrophils/100 WBC (Bld) 51.2 % [facility] Nucleated RBC (Bld) [#/Vol] [facility] Nucleated RBC/100 WBC (Bld) [Ratio] 0.0 % /100 WBC [facility] Platelet mean volume (Bld) [Entitic vol] 10.0 fL 9.0 - 12.7 fL [facility] Platelets (Bld) [#/Vol] 180 10*3/uL [facility] RBC (Bld) [#/Vol] 3.49 10*6/uL Low 3.90 - 5.2 0 m/uL [facility] WBC (Bld) [#/Vol] 3.38 10*3/uL Low [facility] Comprehensive metabolic 2000 panelOrdered By: Farrah Devine on 07-26-2024 Albumin [Mass/Vol] 4.7 g/dL 3.9 - 4.9 g/dL [facility] ALP [Catalytic activity/Vol] 87 U/L 34 - 123 U/L [facility] ALT [Catalytic activity/Vol] 9 U/L 7 - 38 U/L [facility] Anion gap [Moles/Vol] 13 mmol/L 8 - 15 mmol/L [facility] AST [Catalytic activity/Vol] 11 U/L Low 13 - 35 U/L [facility] Bilirubin [Mass/Vol] 0.2 mg/dL 0.2 - 1 .3 mg/dL [facility] Calcium [Mass/Vol] 10.1 mg/dL 8.5 - 10. 2 mg/dL [facility] Chloride [Moles/Vol] 110 mmol/L High 98 - 10 7 mmol/L [facility] CO2 [Moles/Vol] 17 mmol/L Low 22 - 30 mmol/L [facility] Creatinine [Mass/Vol] 1.92 mg/dL High 0.58 - 0.96 mg/dL [facility] GFR/1.73 sq M.predicted among non-blacks MDRD (S/P/Bld) [Vol rate/Area] 32 mL/min/{1.73_m2} Low - PINF [facility] Comment on above: Estimated Glomerular Filtration Rate (eGFR) is calculated using the 2020 CKD-EPI creatinine equation. This equation utilizes serum creatinine, sex, and age as parameters. The creatinine assay has traceable calibration to isotope dilution-mass spectrometry. Refer to KDIGO guidelines for clinical interpretation. In patients with unstable renal function, e.g. those with acute kidney injury, the eGFR may not accurately reflect actual GFR. Glucose [Mass/Vol] 85 mg/dL 74 - 99 mg/dL [facility] Comment on above: The [place] [employer] (ADA) provides guidance for cutoff values for fasting glucose and random glucose. The ADA defines fasting as no caloric intake for at least 8 hours. Fasting plasma glucose results between 100 to 125 [...] Standards of Medical Care in Diabetes 2016, [place] [employer]. Diabetes Care. 2016.39(Suppl 1). Interpretation and review of laboratory results Abnormal [facility] Potassium [Moles/Vol] 4.3 mmol/L 3.7 - 5.1 mmol/L [facility] Protein [Mass/Vol] 7.1 g/dL 6.3 - 8.0 g/dL [facility] Sodium [Moles/Vol] 140 mmol/L 136 - 144 mmol/L [facility] Urea nitrogen [Mass/Vol] 48 mg/dL High 7 - 21 mg/dL [facility] CBC panel Auto (Bld)on 07-14 Erythrocyte distribution width (RBC) [Ratio] 12.8 % 11.5 - 15.0 % [facility] Hematocrit (Bld) [Volume fraction] 30.9 % Low 36.0 - 46.0 % [facility] Hemoglobin (Bld) [Mass/Vol] 10.1 g/dL Low 11.5 - 15.5 g/dL [facility] Interpretation and review of laboratory results Abnormal [facility] MCH (RBC) [Entitic mass] 28.1 pg 26.0 - 34.0 pg [facility] MCHC (RBC) [Mass/Vol] 32.7 g/dL 30.5 - 36.0 g/dL [facility] MCV (RBC) [Entitic vol] 86.1 fL 80.0 - 100.0 fL [facility] Nucleated RBC (Bld) [#/Vol] NINF [facility] Platelet mean volume (Bld) [Entitic vol] 9.9 fL 9.0 - 12.7 fL [facility] Platelets (Bld) [#/Vol] 182 10*3/uL [facility] RBC (Bld) [#/Vol] 3.59 10*6/uL Low 3.90 - 5.2 0 m/uL [facility] WBC (Bld) [#/Vol] 4.23 10*3/uL [facility] Comprehensive metabolic 2000 panelOrdered By: Samanta Cuevas on 07-14-2024 Albumin [Mass/Vol] 4.5 g/dL 3.9 - 4.9 g/dL [facility] ALP [Catalytic activity/Vol] 90 U/L 34 - 123 U/L [facility] ALT [Catalytic activity/Vol] 8 U/L 7 - 38 U/L [facility] Anion gap [Moles/Vol] 13 mmol/L 8 - 15 mmol/L [facility] AST [Catalytic activity/Vol] 12 U/L Low 13 - 35 U/L [facility] Bilirubin [Mass/Vol] 0.2 mg/dL 0.2 - 1 .3 mg/dL [facility] Calcium [Mass/Vol] 10.4 mg/dL High 8.5 - 10. 2 mg/dL [facility] Chloride [Moles/Vol] 107 mmol/L 98 - 10 7 mmol/L [facility] CO2 [Moles/Vol] 20 mmol/L Low 22 - 30 mmol/L [facility] Creatinine [Mass/Vol] 2.01 mg/dL High 0.58 - 0.96 mg/dL [facility] GFR/1.73 sq M.predicted among non-blacks MDRD (S/P/Bld) [Vol rate/Area] 30 mL/min/{1.73_m2} Low - PINF [facility] Comment on above: Estimated Glomerular Filtration Rate (eGFR) is calculated using the 2020 CKD-EPI creatinine equation. This equation utilizes serum creatinine, sex, and age as parameters. The creatinine assay has traceable calibration to isotope dilution-mass spectrometry. Refer to KDIGO guidelines for clinical interpretation. In patients with unstable renal function, e.g. those with acute kidney injury, the eGFR may not accurately reflect actual GFR. Glucose [Mass/Vol] 101 mg/dL High 74 - 99 mg/dL [facility] Comment on above: The [place] [employer] (ADA) provides guidance for cutoff values for fasting glucose and random glucose. The ADA defines fasting as no caloric intake for at least 8 hours. Fasting plasma glucose results between 100 to 125 [...] Standards of Medical Care in Diabetes 2016, [place] [employer]. Diabetes Care. 2016.39(Suppl 1). Interpretation and review of laboratory results Abnormal [facility] Potassium [Moles/Vol] 4.0 mmol/L 3.7 - 5.1 mmol/L [facility] Protein [Mass/Vol] 7.4 g/dL 6.3 - 8.0 g/dL [facility] Sodium [Moles/Vol] 140 mmol/L 136 - 144 mmol/L [facility] Urea nitrogen [Mass/Vol] 39 mg/dL High 7 - 21 mg/dL [facility] CBC W Auto Differential pane l (Bld)on 06-28-2024 Basophils (Bld) [#/Vol] [facility] Basophils/100 WBC (Bld) 0.0 % [facility] Differential cell count method Nom (Bld) Auto [facility] Eosinophils (Bld) [#/Vol] [facility] Eosinophils/100 WBC (Bld) 0.0 % [facility] Erythrocyte distribution width (RBC) [Ratio] 13.1 % 11.5 - 15.0 % [facility] Hematocrit (Bld) [Volume fraction] 28.7 % Low 36.0 - 46.0 % [facility] Hemoglobin (Bld) [Mass/Vol] 9.3 g/dL Low 11.5 - 15.5 g/dL [facility] Immature granulocytes (Bld) [#/Vol] [facility] Immature granulocytes/100 WBC (Bld) 0.3 % [facility] Interpretation and review of laboratory results Abnormal [facility] Lymphocytes (Bld) [#/Vol] 0.76 10*3/uL Low [facility] Lymphocytes/100 WBC (Bld) 23.5 % [facility] MCH (RBC) [Entitic mass] 28.1 pg 26.0 - 34.0 pg [facility] MCHC (RBC) [Mass/Vol] 32.4 g/dL 30.5 - 36.0 g/dL [facility] MCV (RBC) [Entitic vol] 86.7 fL 80.0 - 100.0 fL [facility] Monocytes (Bld) [#/Vol] 0.21 10*3/uL [facility] Monocytes/100 WBC (Bld) 6.5 % [facility] Neutrophils (Bld) [#/Vol] 2.25 10*3/uL [facility] Neutrophils/100 WBC (Bld) 69.7 % [facility] Nucleated RBC (Bld) [#/Vol] NINF [facility] Nucleated RBC/100 WBC (Bld) [Ratio] 0.0 % /100 WBC [facility] Platelet mean volume (Bld) [Entitic vol] 9.4 fL 9.0 - 12.7 fL [facility] Platelets (Bld) [#/Vol] 189 10*3/uL [facility] RBC (Bld) [#/Vol] 3.31 10*6/uL Low 3.90 - 5.2 0 m/uL [facility] WBC (Bld) [#/Vol] 3.23 10*3/uL Low [facility] Comprehensive metabolic 2000 panelOrdered By: Farrah Devine on 06-28-2024 Albumin [Mass/Vol] 4.4 g/dL 3.9 - 4.9 g/dL [facility] ALP [Catalytic activity/Vol] 81 U/L 34 - 123 U/L [facility] ALT [Catalytic activity/Vol] 11 U/L 7 - 38 U/L [facility] Anion gap [Moles/Vol] 11 mmol/L 8 - 15 mmol/L [facility] AST [Catalytic activity/Vol] 12 U/L Low 13 - 35 U/L [facility] Bilirubin [Mass/Vol] 0.2 mg/dL 0.2 - 1 .3 mg/dL [facility] Calcium [Mass/Vol] 9.7 mg/dL 8.5 - 10. 2 mg/dL [facility] Chloride [Moles/Vol] 107 mmol/L 98 - 10 7 mmol/L [facility] CO2 [Moles/Vol] 21 mmol/L Low 22 - 30 mmol/L [facility] Creatinine [Mass/Vol] 1.94 mg/dL High 0.58 - 0.96 mg/dL [facility] GFR/1.73 sq M.predicted among non-blacks MDRD (S/P/Bld) [Vol rate/Area] 31 mL/min/{1.73_m2} Low - PINF [facility] Comment on above: Estimated Glomerular Filtration Rate (eGFR) is calculated using the 2020 CKD-EPI creatinine equation. This equation utilizes serum creatinine, sex, and age as parameters. The creatinine assay has traceable calibration to isotope dilution-mass spectrometry. Refer to KDIGO guidelines for clinical interpretation. In patients with unstable renal function, e.g. those with acute kidney injury, the eGFR may not accurately reflect actual GFR. Glucose [Mass/Vol] 145 mg/dL High 74 - 99 mg/dL [facility] Comment on above: The [place] [employer] (ADA) provides guidance for cutoff values for fasting glucose and random glucose. The ADA defines fasting as no caloric intake for at least 8 hours. Fasting plasma glucose results between 100 to 125 [...] Standards of Medical Care in Diabetes 2016, [place] [employer]. Diabetes Care. 2016.39(Suppl 1). Potassium [Moles/Vol] 4.7 mmol/L 3.7 - 5.1 mmol/L [facility] Protein [Mass/Vol] 6.9 g/dL 6.3 - 8.0 g/dL [facility] Sodium [Moles/Vol] 139 mmol/L 136 - 144 mmol/L [facility] Urea nitrogen [Mass/Vol] 45 mg/dL High 7 - 21 mg/dL [facility] Laboratory - Chemistry and C hemistry - challengeon 06-28-2024 Urate [Mass/Vol] 9.5 mg/dL High 2.5 - 6.6 mg/dL [facility] No Panel InformationOrdered By: Farrah Devine on 06-28-2024 Interpretation and review of laboratory results Abnormal [facility] URINALYSIS, REFLEX MICROSCOP ICon 06-28-2024 Bilirubin Ql (U) Negative Negative [facility] Clarity (Unsp spec) Clear Clear [facility] Color (U) Yellow Yellow [facility] Glucose Test strip (U) [Mass/Vol] Negative Negative [facility] Hemoglobin Ql (U) Negative Negative [facility] Interpretation and review of laboratory results Abnormal [facility] Ketones Ql (U) Negative Negative [facility] Leukocyte esterase Test strip Ql (U) Negative Negative [facility] Nitrite Ql (U) Negative Negative [facility] pH (U) 5.0 [pH] NINF - 8.5 [facility] Protein (U) [Mass/Vol] 1+ Abnormal Negative [facility] Specific gravity (U) [Rel density] 1.008 1.005 - 1.030 [facility] Urobilinogen Ql (U) 0.2 EU/dL 0.2-1.0 EU/dL [facility] This test was developed and its performance characteristics determined by [facility] [place] ([facility] It has not been cleared or approved by the FDA. [facility] is regulated under CLIA as qualified to perform high-complexity testing. This test is used for clinical purposes. It should not be regarded as investigational or for research. [facility] CBC W Auto Differential pane l (Bld)on 06-14-2024 Basophils [facility]Bld) [#/Vol] [facility] Basophils/100 WBC (Bld) 0.0 % [facility] Differential cell count method Nom (Bld) Auto [facility] Eosinophils (Bld) [#/Vol] [facility] Eosinophils/100 WBC (Bld) 0.0 % [facility] Erythrocyte distribution width (RBC) [Ratio] 13.3 % 11.5 - 15.0 % [facility] Hematocrit (Bld) [Volume fraction] 29.4 % Low 36.0 - 46.0 % [facility] Hemoglobin (Bld) [Mass/Vol] 9.5 g/dL Low 11.5 - 15.5 g/dL [facility] Immature granulocytes (Bld) [#/Vol] [facility] Immature granulocytes/100 WBC (Bld) 0.3 % [facility] Interpretation and review of laboratory results Abnormal [facility] Lymphocytes (Bld) [#/Vol] 1.14 10*3/uL [facility] Lymphocytes/100 WBC (Bld) 29.1 % [facility] MCH (RBC) [Entitic mass] 28.2 pg 26.0 - 34.0 pg [facility] MCHC (RBC) [Mass/Vol] 32.3 g/dL 30.5 - 36.0 g/dL [facility] MCV (RBC) [Entitic vol] 87.2 fL 80.0 - 100.0 fL [facility] Monocytes (Bld) [#/Vol] 0.44 10*3/uL NINF [facility] Monocytes/100 WBC (Bld) 11.2 % [facility] Neutrophils (Bld) [#/Vol] 2.33 10*3/uL [facility] Neutrophils/100 WBC (Bld) 59.4 % [facility] Nucleated RBC (Bld) [#/Vol] NINF [facility] Nucleated RBC/100 WBC (Bld) [Ratio] 0.0 % /100 WBC [facility] Platelet mean volume (Bld) [Entitic vol] 10.0 fL 9.0 - 12.7 fL [facility] Platelets (Bld) [#/Vol] 163 10*3/uL [facility] RBC (Bld) [#/Vol] 3.37 10*6/uL Low 3.90 - 5.2 0 m/uL [facility] WBC (Bld) [#/Vol] 3.92 10*3/uL [facility] Comprehensive metabolic 2000 panelOrdered By: Samanta Cuevas on 06-14-2024 Albumin [Mass/Vol] 4.3 g/dL 3.9 - 4.9 g/dL [facility] ALP [Catalytic activity/Vol] 68 U/L 34 - 123 U/L [facility] ALT [Catalytic activity/Vol] 12 U/L 7 - 38 U/L [facility] Anion gap [Moles/Vol] 10 mmol/L 8 - 15 mmol/L [facility] AST [Catalytic activity/Vol] 11 U/L Low 13 - 35 U/L [facility] Bilirubin [Mass/Vol] 0.3 mg/dL 0.2 - 1 .3 mg/dL [facility] Calcium [Mass/Vol] 9.8 mg/dL 8.5 - 10. 2 mg/dL [facility] Chloride [Moles/Vol] 111 mmol/L High 98 - 10 7 mmol/L [facility] CO2 [Moles/Vol] 18 mmol/L Low 22 - 30 mmol/L [facility] Creatinine [Mass/Vol] 1.87 mg/dL High 0.58 - 0.96 mg/dL [facility] GFR/1.73 sq M.predicted among non-blacks MDRD (S/P/Bld) [Vol rate/Area] 33 mL/min/{1.73_m2} Low - PINF [facility] Comment on above: Estimated Glomerular Filtration Rate (eGFR) is calculated using the 2020 CKD-EPI creatinine equation. This equation utilizes serum creatinine, sex, and age as parameters. The creatinine assay has traceable calibration to isotope dilution-mass spectrometry. Refer to KDIGO guidelines for clinical interpretation. In patients with unstable renal function, e.g. those with acute kidney injury, the eGFR may not accurately reflect actual GFR. Glucose [Mass/Vol] 98 mg/dL 74 - 99 mg/dL [facility] Comment on above: The [place] [employer] (ADA) provides guidance for cutoff values for fasting glucose and random glucose. The ADA defines fasting as no caloric intake for at least 8 hours. Fasting plasma glucose results between 100 to 125 [...] Standards of Medical Care in Diabetes 2016, [place] [employer]. Diabetes Care. 2016.39(Suppl 1). Interpretation and review of laboratory results Abnormal [facility] Potassium [Moles/Vol] 4.0 mmol/L 3.7 - 5.1 mmol/L [facility] Protein [Mass/Vol] 6.7 g/dL 6.3 - 8.0 g/dL [facility] Sodium [Moles/Vol] 139 mmol/L 136 - 144 mmol/L [facility] Urea nitrogen [Mass/Vol] 42 mg/dL High 7 - 21 mg/dL [facility] CBC W Auto Differential pane l (Bld)on 05-31-2024 Basophils (Bld) [#/Vol] NINF [facility] Basophils/100 WBC (Bld) 0.3 % [facility] Differential cell count method Nom (Bld) Auto [facility] Eosinophils (Bld) [#/Vol] 0.05 10*3/uL NINF [facility] Eosinophils/100 WBC (Bld) 1.3 % [facility] Erythrocyte distribution width (RBC) [Ratio] 13.1 % 11.5 - 15.0 % [facility] Hematocrit (Bld) [Volume fraction] 30.5 % Low 36.0 - 46.0 % [facility] Hemoglobin (Bld) [Mass/Vol] 10.2 g/dL Low 11.5 - 15.5 g/dL [facility] Immature granulocytes (Bld) [#/Vol] NINF [facility] Immature granulocytes/100 WBC (Bld) 0.3 % [facility] Interpretation and review of laboratory results Abnormal [facility] Lymphocytes (Bld) [#/Vol] 1.22 10*3/uL [facility] Lymphocytes/100 WBC (Bld) 31.7 % [facility] MCH (RBC) [Entitic mass] 28.7 pg 26.0 - 34.0 pg [facility] MCHC (RBC) [Mass/Vol] 33.4 g/dL 30.5 - 36.0 g/dL [facility] MCV (RBC) [Entitic vol] 85.9 fL 80.0 - 100.0 fL [facility] Monocytes (Bld) [#/Vol] 0.45 10*3/uL NINF [facility] Monocytes/100 WBC (Bld) 11.7 % [facility] Neutrophils (Bld) [#/Vol] 2.11 10*3/uL [facility] Neutrophils/100 WBC (Bld) 54.7 % [facility] Nucleated RBC (Bld) [#/Vol] NINF [facility] Nucleated RBC/100 WBC (Bld) [Ratio] 0.0 % /100 WBC [facility] Platelet mean volume (Bld) [Entitic vol] 9.6 fL 9.0 - 12.7 fL [facility] Platelets (Bld) [#/Vol] 169 10*3/uL [facility] RBC (Bld) [#/Vol] 3.55 10*6/uL Low 3.90 - 5.2 0 m/uL [facility] WBC (Bld) [#/Vol] 3.85 10*3/uL [facility] Renal function 2000 panelOrd ered By: Farrah Devine on 05-31-2024 Albumin [Mass/Vol] 4.6 g/dL 3.9 - 4.9 g/dL [facility] Anion gap [Moles/Vol] 12 mmol/L 8 - 15 mmol/L [facility] Calcium [Mass/Vol] 9.7 mg/dL 8.5 - 10. 2 mg/dL [facility] Chloride [Moles/Vol] 109 mmol/L High 98 - 10 7 mmol/L [facility] CO2 [Moles/Vol] 18 mmol/L Low 22 - 30 mmol/L [facility] Creatinine [Mass/Vol] 1.95 mg/dL High 0.58 - 0.96 mg/dL [facility] GFR/1.73 sq M.predicted among non-blacks MDRD (S/P/Bld) [Vol rate/Area] 31 mL/min/{1.73_m2} Low - PINF [facility] Comment on above: Estimated Glomerular Filtration Rate (eGFR) is calculated using the 2020 CKD-EPI creatinine equation. This equation utilizes serum creatinine, sex, and age as parameters. The creatinine assay has traceable calibration to isotope dilution-mass spectrometry. Refer to KDIGO guidelines for clinical interpretation. In patients with unstable renal function, e.g. those with acute kidney injury, the eGFR may not accurately reflect actual GFR. Glucose [Mass/Vol] 94 mg/dL 74 - 99 mg/dL [facility] Comment on above: The [place] [employer] (ADA) provides guidance for cutoff values for fasting glucose and random glucose. The ADA defines fasting as no caloric intake for at least 8 hours. Fasting plasma glucose results between 100 to 125 [...] Standards of Medical Care in Diabetes 2016, [place] [employer]. Diabetes Care. 2016.39(Suppl 1). Interpretation and review of laboratory results Abnormal [facility] Phosphate [Mass/Vol] 4.1 mg/dL 2.7 - 4 .8 mg/dL [facility] Potassium [Moles/Vol] 4.2 mmol/L 3.7 - 5.1 mmol/L [facility] Sodium [Moles/Vol] 139 mmol/L 136 - 144 mmol/L [facility] Urea nitrogen [Mass/Vol] 44 mg/dL High 7 - 21 mg/dL [facility] CBC W Auto Differential pane l (Bld)on 05-03-2024 Basophils (Bld) [#/Vol] [facility] Basophils/100 WBC (Bld) 0.3 % [facility] Differential cell count method Nom (Bld) Auto [facility] Eosinophils (Bld) [#/Vol] 0.08 10*3/uL [facility] Eosinophils/100 WBC (Bld) 2.4 % [facility] Erythrocyte distribution width (RBC) [Ratio] 12.7 % 11.5 - 15.0 % [facility] Hematocrit (Bld) [Volume fraction] 29.0 % Low 36.0 - 46.0 % [facility] Hemoglobin (Bld) [Mass/Vol] 9.6 g/dL Low 11.5 - 15.5 g/dL [facility] Immature granulocytes (Bld) [#/Vol] [facility] Immature granulocytes/100 WBC (Bld) 0.3 % [facility] Interpretation and review of laboratory results Abnormal [facility] Lymphocytes (Bld) [#/Vol] 1.04 10*3/uL [facility] Lymphocytes/100 WBC (Bld) 31.0 % [facility] MCH (RBC) [Entitic mass] 28.2 pg 26.0 - 34.0 pg [facility] MCHC (RBC) [Mass/Vol] 33.1 g/dL 30.5 - 36.0 g/dL [facility] MCV (RBC) [Entitic vol] 85.3 fL 80.0 - 100.0 fL [facility] Monocytes (Bld) [#/Vol] 0.48 10*3/uL [facility] Monocytes/100 WBC (Bld) 14.3 % [facility] Neutrophils (Bld) [#/Vol] 1.73 10*3/uL [facility] Neutrophils/100 WBC (Bld) 51.7 % [facility] Nucleated RBC (Bld) [#/Vol] [facility] Nucleated RBC/100 WBC (Bld) [Ratio] 0.0 % /100 WBC [facility] Platelet mean volume (Bld) [Entitic vol] 10.2 fL 9.0 - 12.7 fL [facility] Platelets (Bld) [#/Vol] 207 10*3/uL [facility] RBC (Bld) [#/Vol] 3.40 10*6/uL Low 3.90 - 5.2 0 m/uL [facility] WBC (Bld) [#/Vol] 3.35 10*3/uL Low [facility] Renal function 2000 panelOrd ered By: Cece Lopez on 05-03-2024 Albumin [Mass/Vol] 4.4 g/dL 3.9 - 4.9 g/dL [facility] Anion gap [Moles/Vol] 11 mmol/L 8 - 15 mmol/L [facility] Calcium [Mass/Vol] 9.9 mg/dL 8.5 - 10. 2 mg/dL [facility] Chloride [Moles/Vol] 110 mmol/L High 98 - 10 7 mmol/L [facility] CO2 [Moles/Vol] 20 mmol/L Low 22 - 30 mmol/L [facility] Creatinine [Mass/Vol] 2.10 mg/dL High 0.58 - 0.96 mg/dL [facility] GFR/1.73 sq M.predicted among non-blacks MDRD (S/P/Bld) [Vol rate/Area] 28 mL/min/{1.73_m2} Low - PINF [facility] Comment on above: Estimated Glomerular Filtration Rate (eGFR) is calculated using the 2020 CKD-EPI creatinine equation. This equation utilizes serum creatinine, sex, and age as parameters. The creatinine assay has traceable calibration to isotope dilution-mass spectrometry. Refer to KDIGO guidelines for clinical interpretation. In patients with unstable renal function, e.g. those with acute kidney injury, the eGFR may not accurately reflect actual GFR. Glucose [Mass/Vol] 91 mg/dL 74 - 99 mg/dL [facility] Comment on above: The [place] [employer] (ADA) provides guidance for cutoff values for fasting glucose and random glucose. The ADA defines fasting as no caloric intake for at least 8 hours. Fasting plasma glucose results between 100 to 125 [...] Standards of Medical Care in Diabetes 2016, [place] [employer]. Diabetes Care. 2016.39(Suppl 1). Interpretation and review of laboratory results Abnormal [facility] Phosphate [Mass/Vol] 3.5 mg/dL 2.7 - 4 .8 mg/dL [facility] Potassium [Moles/Vol] 4.2 mmol/L 3.7 - 5.1 mmol/L [facility] Sodium [Moles/Vol] 141 mmol/L 136 - 144 mmol/L [facility] Urea nitrogen [Mass/Vol] 47 mg/dL High 7 - 21 mg/dL [facility] CBC W Auto Differential pane l (Bld)on 04-05-2024 Basophils (Bld) [#/Vol] [facility] Basophils/100 WBC (Bld) 0.2 % [facility] Differential cell count method Nom (Bld) Auto [facility] Eosinophils (Bld) [#/Vol] 0.10 10*3/uL [facility] Eosinophils/100 WBC (Bld) 2.2 % [facility] Erythrocyte distribution width (RBC) [Ratio] 12.8 % 11.5 - 15.0 % [facility] Hematocrit (Bld) [Volume fraction] 29.8 % Low 36.0 - 46.0 % [facility] Hemoglobin (Bld) [Mass/Vol] 10.0 g/dL Low 11.5 - 15.5 g/dL [facility] Immature granulocytes (Bld) [#/Vol] [facility] Immature granulocytes/100 WBC (Bld) 0.4 % [facility] Interpretation and review of laboratory results Abnormal [facility] Lymphocytes (Bld) [#/Vol] 1.19 10*3/uL [facility] Lymphocytes/100 WBC (Bld) 25.9 % [facility] MCH (RBC) [Entitic mass] 29.1 pg 26.0 - 34.0 pg [facility] MCHC (RBC) [Mass/Vol] 33.6 g/dL 30.5 - 36.0 g/dL [facility] MCV (RBC) [Entitic vol] 86.6 fL 80.0 - 100.0 fL [facility] Monocytes (Bld) [#/Vol] 0.58 10*3/uL NINF [facility] Monocytes/100 WBC (Bld) 12.6 % [facility] Neutrophils (Bld) [#/Vol] 2.70 10*3/uL [facility] Neutrophils/100 WBC (Bld) 58.7 % [facility] Nucleated RBC (Bld) [#/Vol] NINF [facility] Nucleated RBC/100 WBC (Bld) [Ratio] 0.0 % /100 WBC [facility] Platelet mean volume (Bld) [Entitic vol] 9.4 fL 9.0 - 12.7 fL [facility] Platelets (Bld) [#/Vol] 155 10*3/uL [facility] RBC (Bld) [#/Vol] 3.44 10*6/uL Low 3.90 - 5.2 0 m/uL [facility] WBC (Bld) [#/Vol] 4.60 10*3/uL [facility] Renal function 2000 panelOrd ered By: Cece Lopez on 04-05-2024 Albumin [Mass/Vol] 4.3 g/dL 3.9 - 4.9 g/dL [facility] Anion gap [Moles/Vol] 10 mmol/L 9 - 18 mmol/L [facility] Calcium [Mass/Vol] 10.0 mg/dL 8.5 - 10. 2 mg/dL [facility] Chloride [Moles/Vol] 110 mmol/L High 97 - 10 5 mmol/L [facility] CO2 [Moles/Vol] 21 mmol/L Low 22 - 30 mmol/L [facility] Creatinine [Mass/Vol] 2.02 mg/dL High 0.58 - 0.96 mg/dL [facility] GFR/1.73 sq M.predicted among non-blacks MDRD (S/P/Bld) [Vol rate/Area] 30 mL/min/{1.73_m2} Low - PINF [facility] Comment on above: Estimated Glomerular Filtration Rate (eGFR) is calculated using the 2020 CKD-EPI creatinine equation. This equation utilizes serum creatinine, sex, and age as parameters. The creatinine assay has traceable calibration to isotope dilution-mass spectrometry. Refer to KDIGO guidelines for clinical interpretation. In patients with unstable renal function, e.g. those with acute kidney injury, the eGFR may not accurately reflect actual GFR. Glucose [Mass/Vol] 103 mg/dL High 74 - 99 mg/dL [facility] Comment on above: The [place] [employer] (ADA) provides guidance for cutoff values for fasting glucose and random glucose. The ADA defines fasting as no caloric intake for at least 8 hours. Fasting plasma glucose results between 100 to 125 [...] Standards of Medical Care in Diabetes 2016, [place] [employer]. Diabetes Care. 2016.39(Suppl 1). Interpretation and review of laboratory results Abnormal [facility] Phosphate [Mass/Vol] 3.5 mg/dL 2.7 - 4 .8 mg/dL [facility] Potassium [Moles/Vol] 4.3 mmol/L 3.7 - 5.1 mmol/L [facility] Sodium [Moles/Vol] 141 mmol/L 136 - 144 mmol/L [facility] Urea nitrogen [Mass/Vol] 49 mg/dL High 7 - 21 mg/dL [facility] CBC W Auto Differential pane l (Bld)on 03-22-2024 Basophils (Bld) [#/Vol] [facility] Basophils/100 WBC (Bld) 0.2 % [facility] Differential cell count method Nom (Bld) Auto [facility] Eosinophils (Bld) [#/Vol] 0.09 10*3/uL [facility] Eosinophils/100 WBC (Bld) 2.0 % [facility] Erythrocyte distribution width (RBC) [Ratio] 12.5 % 11.5 - 15.0 % [facility] Hematocrit (Bld) [Volume fraction] 30.1 % Low 36.0 - 46.0 % [facility] [place] Hemoglobin (Bld) [Mass/Vol] 10.1 g/dL Low 11.5 - 15.5 g/dL [facility] [place] Immature granulocytes (Bld) [#/Vol] 0.03 10*3/uL [facility] Immature granulocytes/100 WBC (Bld) 0.7 % [facility] [place] Interpretation and review of laboratory results Abnormal [facility] [place] Lymphocytes (Bld) [#/Vol] 1.52 10*3/uL [facility] [place] Lymphocytes/100 WBC (Bld) 34.1 % [facility] [place] MCH (RBC) [Entitic mass] 28.6 pg 26.0 - 34.0 pg [facility] [place] MCHC (RBC) [Mass/Vol] 33.6 g/dL 30.5 - 36.0 g/dL [facility] [place] MCV (RBC) [Entitic vol] 85.3 fL 80.0 - 100.0 fL [facility] [place] Monocytes (Bld) [#/Vol] 0.51 10*3/uL NINF [facility] [place] Monocytes/100 WBC (Bld) 11.4 % [facility] [place] Neutrophils (Bld) [#/Vol] 2.30 10*3/uL [facility] [place] Neutrophils/100 WBC (Bld) 51.6 % [facility] [place] Nucleated RBC (Bld) [#/Vol] NINF [facility] [place] Nucleated RBC/100 WBC (Bld) [Ratio] 0.0 % /100 WBC [facility] [place] Platelet mean volume (Bld) [Entitic vol] 9.7 fL 9.0 - 12.7 fL [facility] [place] Platelets (Bld) [#/Vol] 185 10*3/uL [facility] [place] RBC (Bld) [#/Vol] 3.53 10*6/uL Low 3.90 - 5.2 0 m/uL [facility] [place] WBC (Bld) [#/Vol] 4.46 10*3/uL [facility] Renal function 2000 panelOrd ered By: Farrah Devine on 03-22-2024 Albumin [Mass/Vol] 4.3 g/dL 3.9 - 4.9 g/dL [facility] [place] Anion gap [Moles/Vol] 10 mmol/L 9 - 18 mmol/L [facility] Calcium [Mass/Vol] 10.2 mg/dL 8.5 - 10. 2 mg/dL [facility] Chloride [Moles/Vol] 109 mmol/L High 97 - 10 5 mmol/L [facility] CO2 [Moles/Vol] 22 mmol/L 22 - 30 mmol/L [facility] [place] Creatinine [Mass/Vol] 2.01 mg/dL High 0.58 - 0.96 mg/dL [facility] GFR/1.73 sq M.predicted among non-blacks MDRD (S/P/Bld) [Vol rate/Area] 30 mL/min/{1.73_m2} Low - PINF [facility] [place] Comment on above: Estimated Glomerular Filtration Rate (eGFR) is calculated using the 2020 CKD-EPI creatinine equation. This equation utilizes serum creatinine, sex, and age as parameters. The creatinine assay has traceable calibration to isotope dilution-mass spectrometry. Refer to KDIGO guidelines for clinical interpretation. In patients with unstable renal function, e.g. those with acute kidney injury, the eGFR may not accurately reflect actual GFR. Glucose [Mass/Vol] 100 mg/dL High 74 - 99 mg/dL [facility] [place] Comment on above: The [place] [employer] (ADA) provides guidance for cutoff values for fasting glucose and random glucose. The ADA defines fasting as no caloric intake for at least 8 hours. Fasting plasma glucose results between 100 to 125 [...] Standards of Medical Care in Diabetes 2016, [place] [employer]. Diabetes Care. 2016.39(Suppl 1). Interpretation and review of laboratory results Abnormal [facility] [place] Phosphate [Mass/Vol] 4.6 mg/dL 2.7 - 4 .8 mg/dL [facility] [place] Potassium [Moles/Vol] 4.1 mmol/L 3.7 - 5.1 mmol/L [facility] [place] Sodium [Moles/Vol] 141 mmol/L 136 - 144 mmol/L [facility] [place] Urea nitrogen [Mass/Vol] 54 mg/dL High 7 - 21 mg/dL [facility] CBC W Auto Differential pane l (Bld)on 03-09-2024 [facility]ophils (Bld) [#/Vol] [facility] [place] Basophils/100 WBC (Bld) 0.3 % [facility] [place] Differential cell count method Nom (Bld) Auto [facility] [place] Eosinophils (Bld) [#/Vol] 0.08 10*3/uL NINF [facility] [place] Eosinophils/100 WBC (Bld) 2.1 % [facility] [place] Erythrocyte distribution width (RBC) [Ratio] 13.0 % 11.5 - 15.0 % [facility] [place] Hematocrit (Bld) [Volume fraction] 31.7 % Low 36.0 - 46.0 % [facility] [place] Hemoglobin (Bld) [Mass/Vol] 10.6 g/dL Low 11.5 - 15.5 g/dL [facility] [place] Immature granulocytes (Bld) [#/Vol] NINF [facility] [place] Immature granulocytes/100 WBC (Bld) 0.3 % [facility] [place] Interpretation and review of laboratory results Abnormal [facility] [place] Lymphocytes (Bld) [#/Vol] 1.39 10*3/uL [facility] [place] Lymphocytes/100 WBC (Bld) 36.5 % [facility] [place] MCH (RBC) [Entitic mass] 28.9 pg 26.0 - 34.0 pg [facility] [place] MCHC (RBC) [Mass/Vol] 33.4 g/dL 30.5 - 36.0 g/dL [facility] [place] MCV (RBC) [Entitic vol] 86.4 fL 80.0 - 100.0 fL [facility] [place] Monocytes (Bld) [#/Vol] 0.41 10*3/uL [facility] [place] Monocytes/100 WBC (Bld) 10.8 % [facility] [place] Neutrophils (Bld) [#/Vol] 1.91 10*3/uL [facility] [place] Neutrophils/100 WBC (Bld) 50.0 % [facility] [place] Nucleated RBC (Bld) [#/Vol] NINF [facility] [place] Nucleated RBC/100 WBC (Bld) [Ratio] 0.0 % /100 WBC [facility] [place] Platelet mean volume (Bld) [Entitic vol] 9.5 fL 9.0 - 12.7 fL [facility] [place] Platelets (Bld) [#/Vol] 156 10*3/uL [facility] [place] RBC (Bld) [#/Vol] 3.67 10*6/uL Low 3.90 - 5.2 0 m/uL [facility] [place] WBC (Bld) [#/Vol] 3.81 10*3/uL [facility] Renal function 2000 panelOrd ered By: Samanta Cuevas on 03-09-2024 Albumin [Mass/Vol] 4.5 g/dL 3.9 - 4.9 g/dL [facility] [place] Anion gap [Moles/Vol] 10 mmol/L 9 - 18 mmol/L [facility] [place] Calcium [Mass/Vol] 10.4 mg/dL High 8.5 - 10. 2 mg/dL [facility] [place] Chloride [Moles/Vol] 109 mmol/L High 97 - 10 5 mmol/L [facility] [place] CO2 [Moles/Vol] 21 mmol/L Low 22 - 30 mmol/L [facility] [place] Creatinine [Mass/Vol] 1.87 mg/dL High 0.58 - 0.96 mg/dL [facility] [place] GFR/1.73 sq M.predicted among non-blacks MDRD (S/P/Bld) [Vol rate/Area] 33 mL/min/{1.73_m2} Low - PINF [facility] [place] Comment on above: Estimated Glomerular Filtration Rate (eGFR) is calculated using the 2020 CKD-EPI creatinine equation. This equation utilizes serum creatinine, sex, and age as parameters. The creatinine assay has traceable calibration to isotope dilution-mass spectrometry. Refer to KDIGO guidelines for clinical interpretation. In patients with unstable renal function, e.g. those with acute kidney injury, the eGFR may not accurately reflect actual GFR. Glucose [Mass/Vol] 110 mg/dL High 74 - 99 mg/dL [facility] [place] Comment on above: The [place] [employer] (ADA) provides guidance for cutoff values for fasting glucose and random glucose. The ADA defines fasting as no caloric intake for at least 8 hours. Fasting plasma glucose results between 100 to 125 [...] Standards of Medical Care in Diabetes 2016, [place] [employer]. Diabetes Care. 2016.39(Suppl 1). Interpretation and review of laboratory results Abnormal [facility] [place] Phosphate [Mass/Vol] 4.1 mg/dL 2.7 - 4 .8 mg/dL [facility] [place] Potassium [Moles/Vol] 4.2 mmol/L 3.7 - 5.1 mmol/L [facility] [place] Sodium [Moles/Vol] 140 mmol/L 136 - 144 mmol/L [facility] [place] Urea nitrogen [Mass/Vol] 54 mg/dL High 7 - 21 mg/dL [facility] CBC W Auto Differential pane l (Bld)on 02-23-2024 Basophils (Bld) [#/Vol] <0.11 k/uL [facility] [place] Basophils/100 WBC (Bld) 0.2 % [facility] [place] Differential cell count method Nom (Bld) Auto [facility] [place] Eosinophils (Bld) [#/Vol] 0.05 10*3/uL <0.46 k/uL [facility] [place] Eosinophils/100 WBC (Bld) 1.0 % [facility] [place] Erythrocyte distribution width (RBC) [Ratio] 12.7 % 11.5 - 15.0 % [facility] [place] Hematocrit (Bld) [Volume fraction] 28.6 % Low 36.0 - 46.0 % [facility] [place] Hemoglobin (Bld) [Mass/Vol] 9.9 g/dL Low 11.5 - 15.5 g/dL [facility] [place] Immature granulocytes (Bld) [#/Vol] <0.10 k/uL [facility] [place] Immature granulocytes/100 WBC (Bld) 0.4 % [facility] [place] Lymphocytes (Bld) [#/Vol] 1.64 10*3/uL 1.00 - 4.00 k/uL [facility] [place] Lymphocytes/100 WBC (Bld) 33.8 % [facility] [place] MCH (RBC) [Entitic mass] 29.6 pg 26.0 - 34.0 pg [facility] [place] MCHC (RBC) [Mass/Vol] 34.6 g/dL 30.5 - 36.0 g/dL [facility] [place] MCV (RBC) [Entitic vol] 85.4 fL 80.0 - 100.0 fL [facility] [place] Monocytes (Bld) [#/Vol] 0.55 10*3/uL <0.87 k/uL [facility] [place] Monocytes/100 WBC (Bld) 11.3 % [facility] [place] Neutrophils (Bld) [#/Vol] 2.58 10*3/uL 1.45 - 7.50 k/uL [facility] [place] Neutrophils/100 WBC (Bld) 53.3 % [facility] [place] Nucleated RBC (Bld) [#/Vol] <0.01 k/uL [facility] [place] Nucleated RBC/100 WBC (Bld) [Ratio] 0.0 /100 WBC [facility] [place] Platelet mean volume (Bld) [Entitic vol] 9.4 fL 9.0 - 12.7 fL [facility] [place] Platelets (Bld) [#/Vol] 149 10*3/uL Low 150 - 400 k/uL [facility] [place] RBC (Bld) [#/Vol] 3.35 10*6/uL Low 3.90 - 5.2 0 m/uL [facility] [place] WBC (Bld) [#/Vol] 4.85 10*3/uL 3.70 - 11. 00 k/uL [facility] [place] Renal function 2000 panelon 02-23-2024 Albumin [Mass/Vol] 4.4 g/dL 3.9 - 4.9 g/dL [facility] [place] Anion gap [Moles/Vol] 9 mmol/L 9 - 18 mmol/L [facility] [place] Calcium [Mass/Vol] 10.1 mg/dL 8.5 - 10. 2 mg/dL [facility] [place] Chloride [Moles/Vol] 108 mmol/L High 97 - 10 5 mmol/L [facility] [place] CO2 [Moles/Vol] 22 mmol/L 22 - 30 mmol/L [facility] [place] Creatinine [Mass/Vol] 1.80 mg/dL High 0.58 - 0.96 mg/dL [facility] [place] Estimated Glomerular Filtration Rate 34 mL/min/1.73m Low >=60 mL/min/1.73m [facility] [place] Glucose [Mass/Vol] 101 mg/dL High 74 - 99 mg/dL [facility] [place] Phosphate [Mass/Vol] 4.0 mg/dL 2.7 - 4 .8 mg/dL [facility] [place] Potassium [Moles/Vol] 4.1 mmol/L 3.7 - 5.1 mmol/L [facility] [place] Sodium [Moles/Vol] 139 mmol/L 136 - 144 mmol/L [facility] [place] Urea nitrogen [Mass/Vol] 39 mg/dL High 7 - 21 mg/dL [facility] [place] CBC W Auto Differential pane l (Bld)on 02-09-2024 Basophils (Bld) [#/Vol] <0.11 k/uL [facility] [place] Basophils/100 WBC (Bld) 0.2 % [facility] [place] Differential cell count method Nom (Bld) Auto [facility] [place] Eosinophils (Bld) [#/Vol] 0.10 10*3/uL <0.46 k/uL [facility] [place] Eosinophils/100 WBC (Bld) 2.4 % [facility] [place] Erythrocyte distribution width (RBC) [Ratio] 12.9 % 11.5 - 15.0 % [facility] [place] Hematocrit (Bld) [Volume fraction] 30.9 % Low 36.0 - 46.0 % [facility] [place] Hemoglobin (Bld) [Mass/Vol] 10.3 g/dL Low 11.5 - 15.5 g/dL [facility] [place] Immature granulocytes (Bld) [#/Vol] <0.10 k/uL [facility] [place] Immature granulocytes/100 WBC (Bld) 0.2 % [facility] [place] Lymphocytes (Bld) [#/Vol] 1.56 10*3/uL 1.00 - 4.00 k/uL [facility] [place] Lymphocytes/100 WBC (Bld) 37.2 % [facility] [place] MCH (RBC) [Entitic mass] 29.3 pg 26.0 - 34.0 pg [facility] [place] MCHC (RBC) [Mass/Vol] 33.3 g/dL 30.5 - 36.0 g/dL [facility] [place] MCV (RBC) [Entitic vol] 87.8 fL 80.0 - 100.0 fL [facility] [place] Monocytes (Bld) [#/Vol] 0.48 10*3/uL <0.87 k/uL [facility] [place] Monocytes/100 WBC (Bld) 11.5 % [facility] [place] Neutrophils (Bld) [#/Vol] 2.03 10*3/uL 1.45 - 7.50 k/uL [facility] [place] Neutrophils/100 WBC (Bld) 48.5 % [facility] [place] Nucleated RBC (Bld) [#/Vol] <0.01 k/uL [facility] [place] Nucleated RBC/100 WBC (Bld) [Ratio] 0.0 /100 WBC [facility] [place] Platelet mean volume (Bld) [Entitic vol] 9.3 fL 9.0 - 12.7 fL [facility] [place] Platelets (Bld) [#/Vol] 171 10*3/uL 150 - 400 k/uL [facility] [place] RBC (Bld) [#/Vol] 3.52 10*6/uL Low 3.90 - 5.2 0 m/uL [facility] [place] WBC (Bld) [#/Vol] 4.19 10*3/uL 3.70 - 11. 00 k/uL [facility] [place] Renal function 2000 panelon 02-09-2024 Albumin [Mass/Vol] 4.3 g/dL 3.9 - 4.9 g/dL [facility] [place] Anion gap [Moles/Vol] 9 mmol/L 9 - 18 mmol/L [facility] [place] Calcium [Mass/Vol] 9.8 mg/dL 8.5 - 10. 2 mg/dL [facility] [place] Chloride [Moles/Vol] 109 mmol/L High 97 - 10 5 mmol/L [facility] [place] CO2 [Moles/Vol] 21 mmol/L Low 22 - 30 mmol/L [facility] [place] Creatinine [Mass/Vol] 1.91 mg/dL High 0.58 - 0.96 mg/dL [facility] [place] Estimated Glomerular Filtration Rate 32 mL/min/1.73m Low >=60 mL/min/1.73m [facility] [place] Glucose [Mass/Vol] 111 mg/dL High 74 - 99 mg/dL [facility] [place] Phosphate [Mass/Vol] 3.6 mg/dL 2.7 - 4 .8 mg/dL [facility] [place] Potassium [Moles/Vol] 3.9 mmol/L 3.7 - 5.1 mmol/L [facility] [place] Sodium [Moles/Vol] 139 mmol/L 136 - 144 mmol/L [facility] [place] Urea nitrogen [Mass/Vol] 46 mg/dL High 7 - 21 mg/dL [facility] [place] CBC W Auto Differential pane l (Bld)on 01-26-2024 Basophils (Bld) [#/Vol] <0.11 k/uL [facility] [place] Basophils/100 WBC (Bld) 0.2 % [facility] [place] Differential cell count method Nom (Bld) Auto [facility] [place] Eosinophils (Bld) [#/Vol] 0.08 10*3/uL <0.46 k/uL [facility] [place] Eosinophils/100 WBC (Bld) 1.4 % [facility] [place] Erythrocyte distribution width (RBC) [Ratio] 13.9 % 11.5 - 15.0 % [facility] [place] Hematocrit (Bld) [Volume fraction] 31.1 % Low 36.0 - 46.0 % [facility] [place] Hemoglobin (Bld) [Mass/Vol] 10.4 g/dL Low 11.5 - 15.5 g/dL [facility] [place] Immature granulocytes (Bld) [#/Vol] <0.10 k/uL [facility] [place] Immature granulocytes/100 WBC (Bld) 0.4 % [facility] [place] Lymphocytes (Bld) [#/Vol] 1.24 10*3/uL 1.00 - 4.00 k/uL [facility] [place] Lymphocytes/100 WBC (Bld) 22.1 % [facility] [place] MCH (RBC) [Entitic mass] 29.7 pg 26.0 - 34.0 pg [facility] [place] MCHC (RBC) [Mass/Vol] 33.4 g/dL 30.5 - 36.0 g/dL [facility] [place] MCV (RBC) [Entitic vol] 88.9 fL 80.0 - 100.0 fL [facility] [place] Monocytes (Bld) [#/Vol] 0.38 10*3/uL <0.87 k/uL [facility] [place] Monocytes/100 WBC (Bld) 6.8 % [facility] [place] Neutrophils (Bld) [#/Vol] 3.89 10*3/uL 1.45 - 7.50 k/uL [facility] [place] Neutrophils/100 WBC (Bld) 69.1 % [facility] [place] Nucleated RBC (Bld) [#/Vol] <0.01 k/uL [facility] [place] Nucleated RBC/100 WBC (Bld) [Ratio] 0.0 /100 WBC [facility] [place] Platelet mean volume (Bld) [Entitic vol] 9.8 fL 9.0 - 12.7 fL [facility] [place] Platelets (Bld) [#/Vol] 150 10*3/uL 150 - 400 k/uL [facility] [place] RBC (Bld) [#/Vol] 3.50 10*6/uL Low 3.90 - 5.2 0 m/uL [facility] [place] WBC (Bld) [#/Vol] 5.62 10*3/uL 3.70 - 11. 00 k/uL [facility] [place] Renal function 2000 panelon 01-26-2024 Albumin [Mass/Vol] 4.5 g/dL 3.9 - 4.9 g/dL [facility] [place] Anion gap [Moles/Vol] 11 mmol/L 9 - 18 mmol/L [facility] [place] Calcium [Mass/Vol] 9.7 mg/dL 8.5 - 10. 2 mg/[facility] Chloride [Moles/Vol] 109 mmol/L High 97 - 10 5 mmol/L [facility] [place] CO2 [Moles/Vol] 19 mmol/L Low 22 - 30 mmol/L [facility] [place] Creatinine [Mass/Vol] 1.87 mg/dL High 0.58 - 0.96 mg/dL [facility] [place] Estimated Glomerular Filtration Rate 33 mL/min/1.73m Low >=60 mL/min/1.73m [facility] [place] Glucose [Mass/Vol] 181 mg/dL High 74 - 99 mg/dL [facility] [place] Phosphate [Mass/Vol] 4.7 mg/dL 2.7 - 4 .8 mg/dL [facility] [place] Potassium [Moles/Vol] 4.2 mmol/L 3.7 - 5.1 mmol/L [facility] [place] Sodium [Moles/Vol] 139 mmol/L 136 - 144 mmol/L [facility] [place] Urea nitrogen [Mass/Vol] 52 mg/dL High 7 - 21 mg/dL [facility] [place] CBC W Auto Differential pane l (Bld)on 01-07-2024 Basophils (Bld) [#/Vol] <0.11 k/uL [facility] [place] Basophils/100 WBC (Bld) 0.2 % [facility] [place] Differential cell count method Nom (Bld) Auto [facility] [place] Eosinophils (Bld) [#/Vol] 0.07 10*3/uL <0.46 k/uL [facility] [place] Eosinophils/100 WBC (Bld) 1.5 % [facility] [place] Erythrocyte distribution width (RBC) [Ratio] 13.1 % 11.5 - 15.0 % [facility] [place] Hematocrit (Bld) [Volume fraction] 28.2 % Low 36.0 - 46.0 % [facility] [place] Hemoglobin (Bld) [Mass/Vol] 9.7 g/dL Low 11.5 - 15.5 g/dL [facility] [place] Immature granulocytes (Bld) [#/Vol] <0.10 k/uL [facility] [place] Immature granulocytes/100 WBC (Bld) 0.4 % [facility] [place] Lymphocytes (Bld) [#/Vol] 1.44 10*3/uL 1.00 - 4.00 k/uL [facility] [place] Lymphocytes/100 WBC (Bld) 30.6 % [facility] [place] MCH (RBC) [Entitic mass] 29.8 pg 26.0 - 34.0 pg [facility] [place] MCHC (RBC) [Mass/Vol] 34.4 g/dL 30.5 - 36.0 g/dL [facility] [place] MCV (RBC) [Entitic vol] 86.8 fL 80.0 - 100.0 fL [facility] [place] Monocytes (Bld) [#/Vol] 0.49 10*3/uL <0.87 k/uL [facility] [place] Monocytes/100 WBC (Bld) 10.4 % [facility] [place] Neutrophils (Bld) [#/Vol] 2.67 10*3/uL 1.45 - 7.50 k/uL [facility] [place] Neutrophils/100 WBC (Bld) 56.9 % [facility] [place] Nucleated RBC (Bld) [#/Vol] <0.01 k/uL [facility] [place] Nucleated RBC/100 WBC (Bld) [Ratio] 0.0 /100 WBC [facility] [place] Platelet mean volume (Bld) [Entitic vol] 9.4 fL 9.0 - 12.7 fL [facility] [place] Platelets (Bld) [#/Vol] 166 10*3/uL 150 - 400 k/uL [facility] [place] RBC (Bld) [#/Vol] 3.25 10*6/uL Low 3.90 - 5.2 0 m/uL [facility] [place] WBC (Bld) [#/Vol] 4.70 10*3/uL 3.70 - 11. 00 k/uL [facility] [place] C3 COMPLEMENT [facility] 12-29-19 24 Complement C3 [Mass/Vol] 113 mg/dL 86 - 166 mg/dL [facility] C4 COMPLEMENT [facility] 12-29-19 24 Complement C4 [Mass/Vol] 13 mg/dL 13 - 46 mg/dL [facility] URINALYSIS, REFLEX MICROSCOP ICon 12-29-2023 Bilirubin Ql (U) Negative Negative [facility] Clarity (Unsp spec) Clear Clear [facility] Color (U) Light Yellow Yellow [facility] [place] Glucose Test strip (U) [Mass/Vol] Negative Trace, Negative [facility] [place] Hemoglobin Ql (U) Negative Negative, Trace [facility] Ketones Ql (U) Negative Negative, Trace [facility] Leukocyte esterase Test strip Ql (U) 25 Isaiah/uL Negative, 25 Isaiah/uL [facility] [place] Nitrite Ql (U) Negative Negative [facility] [place] pH (U) 5.5 [pH] 5.0 - 8.0 [facility] [place] Protein (U) [Mass/Vol] 2+ Abnormal Trace , Negative [facility] [place] Specific gravity (U) [Rel density] 1.011 1.005 - 1.030 [facility] [place] Urobilinogen Ql (U) Normal Normal [facility] CBC W Auto Differential pane l (Bld)on 09-08-2023 Basophils (Bld) [#/Vol] <0.11 k/uL [facility] [place] Basophils/100 WBC (Bld) 0.2 % [facility] [place] Differential cell count method Nom (Bld) Auto [facility] [place] Eosinophils (Bld) [#/Vol] 0.09 10*3/uL <0.46 k/uL [facility] [place] Eosinophils/100 WBC (Bld) 2.0 % [facility] [place] Erythrocyte distribution width (RBC) [Ratio] 13.3 % 11.5 - 15.0 % [facility] [place] Hematocrit (Bld) [Volume fraction] 30.2 % Low 36.0 - 46.0 % [facility] [place] Hemoglobin (Bld) [Mass/Vol] 10.2 g/dL Low 11.5 - 15.5 g/dL [facility] [place] Immature granulocytes (Bld) [#/Vol] 0.03 10*3/uL <0.10 k/uL [facility] Immature granulocytes/100 WBC (Bld) 0.7 % [facility] [facility] Lymphocytes (Bld) [#/Vol] 1.35 10*3/uL 1.00 - 4.00 k/uL [facility] Lymphocytes/100 WBC (Bld) 30.2 % [facility] MCH (RBC) [Entitic mass] 29.8 pg 26.0 - 34.0 pg [facility] MCHC (RBC) [Mass/Vol] 33.8 g/dL 30.5 - 36.0 g/dL [facility] MCV (RBC) [Entitic vol] 88.3 fL 80.0 - 100.0 fL [facility] Monocytes (Bld) [#/Vol] 0.65 10*3/uL <0.87 k/uL [facility] Monocytes/100 WBC (Bld) 14.5 % [facility] Neutrophils (Bld) [#/Vol] 2.34 10*3/uL 1.45 - 7.50 k/uL [facility] Neutrophils/100 WBC (Bld) 52.4 % [facility] Nucleated RBC (Bld) [#/Vol] <0.01 k/uL [facility] Nucleated RBC/100 WBC (Bld) [Ratio] 0.0 /100 WBC [facility] Platelet mean volume (Bld) [Entitic vol] 9.1 fL 9.0 - 12.7 fL [facility] Platelets (Bld) [#/Vol] 143 10*3/uL Low 150 - 400 k/uL [facility] RBC (Bld) [#/Vol] 3.42 10*6/uL Low 3.90 - 5.2 0 m/uL [facility] WBC (Bld) [#/Vol] 4.47 10*3/uL 3.70 - 11. 00 k/uL [facility] Renal function 1999 panelon 09-08-2023 Albumin [Mass/Vol] 4.3 g/dL 3.9 - 4.9 g/dL [facility] Anion gap [Moles/Vol] 11 mmol/L 9 - 18 mmol/L [facility] Calcium [Mass/Vol] 9.3 mg/dL 8.5 - 10. 2 mg/dL [facility] Chloride [Moles/Vol] 109 mmol/L High 97 - 10 5 mmol/L [facility] CO2 [Moles/Vol] 21 mmol/L Low 22 - 30 mmol/L [facility] Creatinine [Mass/Vol] 2.21 mg/dL High 0.58 - 0.96 mg/dL [facility] Estimated Glomerular Filtration Rate 27 mL/min/1.73m Low >=60 mL/min/1.73m [facility] Glucose [Mass/Vol] 81 mg/dL 74 - 99 mg/dL [facility] Phosphate [Mass/Vol] 4.0 mg/dL 2.7 - 4 .8 mg/dL [facility] Potassium [Moles/Vol] 4.4 mmol/L 3.7 - 5.1 mmol/L [facility] Sodium [Moles/Vol] 141 mmol/L 136 - 144 mmol/L [facility] Urea nitrogen [Mass/Vol] 47 mg/dL High 7 - 21 mg/dL [facility] Basic metabolic 1999 panelon 07-23-2023 Anion gap [Moles/Vol] 10 mmol/L 9 - 18 mmol/L [facility] Calcium [Mass/Vol] 10.2 mg/dL 8.5 - 10. 2 mg/dL [facility] Chloride [Moles/Vol] 109 mmol/L High 97 - 10 5 mmol/L [facility] CO2 [Moles/Vol] 20 mmol/L Low 22 - 30 mmol/L [facility] Creatinine [Mass/Vol] 1.86 mg/dL High 0.58 - 0.96 mg/dL [facility] Estimated Glomerular Filtration Rate 33 mL/min/1.73m Low >=60 mL/min/1.73m [facility] Glucose [Mass/Vol] 90 mg/dL 74 - 99 mg/dL [facility] Potassium [Moles/Vol] 4.0 mmol/L 3.7 - 5.1 mmol/L [facility] Sodium [Moles/Vol] 139 mmol/L 136 - 144 mmol/L [facility] Urea nitrogen [Mass/Vol] 51 mg/dL High 7 - 21 mg/dL [facility] CBC W Auto Differential pane l (Bld)on 07-23-2023 Basophils (Bld) [#/Vol] <0.11 k/uL [facility] Basophils/100 WBC (Bld) 0.2 % [facility] Differential cell count method Nom (Bld) Auto [facility] Eosinophils (Bld) [#/Vol] 0.09 10*3/uL <0.46 k/uL [facility] Eosinophils/100 WBC (Bld) 1.9 % [facility] Erythrocyte distribution width (RBC) [Ratio] 13.2 % 11.5 - 15.0 % [facility] Hematocrit (Bld) [Volume fraction] 31.9 % Low 36.0 - 46.0 % [facility] Hemoglobin (Bld) [Mass/Vol] 10.6 g/dL Low 11.5 - 15.5 g/dL [facility] Immature granulocytes (Bld) [#/Vol] 0.03 10*3/uL <0.10 k/uL [facility] Immature granulocytes/100 WBC (Bld) 0.6 % [facility] Lymphocytes (Bld) [#/Vol] 1.47 10*3/uL 1.00 - 4.00 k/uL [facility] Lymphocytes/100 WBC (Bld) 30.6 % [facility] MCH (RBC) [Entitic mass] 29.0 pg 26.0 - 34.0 pg [facility] MCHC (RBC) [Mass/Vol] 33.2 g/dL 30.5 - 36.0 g/dL [facility] MCV (RBC) [Entitic vol] 87.2 fL 80.0 - 100.0 fL [facility] Monocytes (Bld) [#/Vol] 0.58 10*3/uL <0.87 k/uL [facility] Monocytes/100 WBC (Bld) 12.1 % [facility] Neutrophils (Bld) [#/Vol] 2.63 10*3/uL 1.45 - 7.50 k/uL [facility] Neutrophils/100 WBC (Bld) 54.6 % [facility] Nucleated RBC (Bld) [#/Vol] <0.01 k/uL [facility] Nucleated RBC/100 WBC (Bld) [Ratio] 0.0 /100 WBC [facility] Platelet mean volume (Bld) [Entitic vol] 9.3 fL 9.0 - 12.7 fL [facility] Platelets (Bld) [#/Vol] 175 10*3/uL 150 - 400 k/uL [facility] RBC (Bld) [#/Vol] 3.66 10*6/uL Low 3.90 - 5.2 0 m/uL [facility] WBC (Bld) [#/Vol] 4.81 10*3/uL 3.70 - 11. 00 k/uL [facility] Hepatic function 2000 panelo n 07-23-2023 Albumin [Mass/Vol] 4.8 g/dL 3.9 - 4.9 g/dL [facility] ALP [Catalytic activity/Vol] 73 U/L 34 - 123 U/L [facility] ALT [Catalytic activity/Vol] 12 U/L 7 - 38 U/L [facility] AST [Catalytic activity/Vol] 12 U/L Low 13 - 35 U/L [facility] Bilirubin [Mass/Vol] 0.2 mg/dL 0.2 - 1 .3 mg/dL [facility] Bilirubin.conjugated [Mass/Vol] <0.2 mg/dL [facility] Protein [Mass/Vol] 7.2 g/dL 6.3 - 8.0 g/dL [facility] PHOSPHORUS INORGANICon 07-23 Phosphate [Mass/Vol] 3.6 mg/dL 2.7 - 4 .8 mg/dL [facility] CNPNon 06-03-2023 [facility] KOMALASHOK ([id number]) 1975 F Date Time Provider Department 06/03/23 DK HAWK During your visit today, we recorded the following information about you: Geni Corcoran 06/03/2023 10:23 AM Signed Patient was sorry that she missed her 05/27/2023 appointment. She thought it was later in the month. She did state that she had planned on canceling that appointment due to her arm feeling so much better with no pain. She wanted to thank the doctors and staff. Allergies As of Date: 06/03/2023 Noted Allergy Reaction SULFA (SULFONAMIDE ANTIBIOTICS) 10/16/2005 1 - Mental Status Change Date Reviewed: 04/29/2023 Reviewed by: Martina Rosario LPN - Fully Assessed Reason for Visit: Patient Update [1234] Cmt: Missed appointment Prescriptions as of 06/03/2023 - amoxicillin-clavulani c acid (AUGMENTIN) 875-125 mg per tablet Take 1 tablet by mouth twice daily. - albuterol HFA (PROVENTIL HFA, VENTOLIN HFA) 90 mcg/actuation inhaler Inhale 2 Puffs as instructed every 4 hours as needed for wheezing/shortness of breath. - allopurinol (ZYLOPRIM) 100 mg tablet Take 2 tablets by mouth once daily. - famotidine (PEPCID) 20 mg tablet TAKE 1 TABLET BY MOUTH TWICE A DAY - furosemide (LASIX) 20 mg tablet TAKE 1 TABLET BY MOUTH DAILY NEEDED FOR EDEMA. - amLODIPine (NORVASC) 10 mg tablet Take 1 tablet by mouth once daily. - carvedilol (COREG) 12.5 mg tablet TAKE 1 TABLET BY MOUTH TWICE A DAY - mycophenolate mofetil (CELLCEPT) 250 mg capsule TAKE 2 CAPSULES BY MOUTH TWICE DAILY. Z94.0 KIDNEY TRANSPLANT - tacrolimus IR (PROGRAF) 1 mg capsule TAKE 2 CAPSULES IN AM AND 3 CAPSULES IN PM - predniSONE (DELTASONE) 5 mg tablet TAKE 1 TABLET BY MOUTH EVERY DAY - simvastatin (ZOCOR) 20 mg tablet TAKE 1 TABLET BY MOUTH EVERY DAY - levothyroxine (SYNTHROID) 50 mcg tablet TAKE 1 TABLET BY MOUTH EVERY DAY - 0.9 % sodium chloride (0.9% NACL) Access implanted vascular access device (IVAD) as needed for flush, blood draw or treatment. Flush IVAD with 10-20 mL NS every 4 weeks and PRN when IVAD not in use. - heparin 100 unit/mL injection Access implanted vascular access device (IVAD) as needed for flush, blood draw or treatment. Before de-accessing port, flush with 10-20ml normal saline and follow with 5 mL heparin (100 units/mL) (if no heparin allergy). De-access port on treatment completion. - Multivitamin capsule Take 1 capsule by mouth once daily. - L gasseri/B bifidum/B longum (PROBIOTIC COLON CARE ORAL) Take 2 capsules by mouth once daily. - flaxseed oil (OMEGA 3 ORAL) Take 2 capsules by mouth once daily. - PROGESTERONE MISC 1 capsule. Daily - folic acid 1 mg tablet Take 1 mg by mouth once daily. - cholecalciferol (VITAMIN D3) 50 mcg (2,000 unit) tablet Take 2,000 Units by mouth once daily. - DARBEPOETIN IRLANDA IN ALBUMN ODELL (ARANESP INJECTION) by INJECTION(UNSPECIFIED PARENTERAL ROUTES) route. - Biotin 10,000 mcg cap Take 1 capsule by mouth once daily. - Ferrous Sulfate (IRON) 325 mg (65 mg iron) tablet Take 1 tablet by mouth twice daily. Problem List As Of Date 06/03/2023 Noted Resolved End stage renal disease [N18.6] 10/16/2005 09/28/2013 Nephritis and nephropathy, not specified as acu*10/16/2005 09/01/2018 Systemic lupus erythematosus [M32.9] DIABETES MELLITUS TYPE II-UNCOMPL [E11.9] Legionnaires' disease [A48.1] 09/28/2013 MALIG SATISH ADNEXA NEC [C57.4] Acquired hemolytic anemia, unspecified (HCC) [D* Thrombocytopenia, unspecified [D69.6] Unspecified hypertensive heart and kidney disea* CORPUS LUTEUM CYST [N83.10] Cough [R05.9] 09/28/2013 Cystitis [595] 09/01/2018 Kidney replaced by transplant [Z94.0] 01/05/2007 Unspecified disease of white blood cells [D72.9]06/03/2007 01/13/2011 Anemia, unspecified [D64.9] 04/11/2009 11/21/2011 Neutropenia, unspecified [D70.9] 11/19/2009 Need for prophylactic immunotherapy [Z29.8] 06/13/2011 09/28/2013 Anemia in chronic renal disease [N18.9, D63.1] 11/21/2011 Urinary tract infection, E. coli [N39.0, B96.20]03/17/2013 09/28/2013 UTI (urinary tract infection) [N39.0] 06/10/2013 09/28/2013 Post-dural puncture headache [G97.1] 06/10/2013 09/28/2013 End stage renal disease (HCC) [N18.6] 04/05/2014 SUMMARY [V999.95] 02/22/2015 09/01/2018 Primary hypertension [I10] 02/22/2015 Mixed hyperlipidemia [E78.2] 02/22/2015 UTI (lower urinary tract infection) [N39.0] 02/22/2015 02/28/2015 Flu-like symptoms [R68.89] 02/22/2015 02/28/2015 DVT prophylaxis [Z79.899] 02/22/2015 02/28/2015 Loose body in knee [M23.40] 08/24/2018 Osteonecrosis (HCC) [M87.9] 08/24/2018 Personal history of DVT (deep vein thrombosis) *09/07/2018 Renal transplant recipient [Z94.0] 09/07/2018 Loose body of left knee [M23.42] 10/08/2018 OA (osteoarthritis) of knee [M17.9] 11/22/2018 S/P left knee surgery [Z98.890] 12/28/2018 Cellul (more content not included)... Normal [facility] CNOVon 04-29-2023 CNOV Office Visit ([facility]) ASHOK SAUCEDA ([id number]) 1975 F Date Time Provider Department 04/29/23 10:30 AM DK HAWK During your visit today, we recorded the following information about you: Pulse Respiration Blood pressure Weight 78/minute 16/minute 124/70 59.9 kg Height 1.6 m Dk Hawk DO 04/29/2023 1:08 PM Signed [facility]PART[facility] OF VASCULAR SURGERY OUTPATIENT VISIT DATE April 29, 2023 OUTPATIENT VISIT TYPE CONSULTATION SERVICE DATE: 04/29/2023 SERVICE TIME: 10:04 AM PRIMARY CARE PHYSICIAN: Nabila Gomez MD REFERRING PROVIDER: No referring provider defined for this encounter. Consult requested for an opinion regarding the evaluation and treatment of the above. My final impression and recommendations will be communicated back to the requesting physician by way of the shared medical record or letter via [place] mail. CHIEF COMPLAINT: left upper arm pain HISTORY OF PRESENT ILLNESS: Vascular consultation at the request of . A copy of this consultation note will be provided to the requesting physician by way of shared Medical record or letter to requesting physician via [place] mail. Ms. Sauceda is a 47 year old female who is seen today for evaluation of right upper arm pain. Patient has a history of end-stage renal disease status post right upper arm AV graft in 2005. Patient underwent kidney transplant in 2006 and retransplant in 2011. Patient on long-term immunosuppression with tacro, prednisone, and MMF. AVG has not been used since prior to transplant. Had low grade fevers and malaise for 1-2 months. Was prescribed Augmentin for cough and congestion. Fevers stopped with Augmentin and patient feels better. Developed right upper arm pain and swelling about 5 days ago. Underwent right upper extremity duplex which showed patent brachial artery, patent brachial vein, and occluded right upper arm AV graft. Labs were also performed and per patient report her white blood cell count was within normal limits. Bedside ultrasound performed in office and demonstrates occluded right upper extremity AV graft and no perigraft Fluid collections or concerning signs of infection. 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 Corpus luteum cyst or hematoma left ovary mass laparascopically biopsied 2002; benign corpus luteum Cough jeanna induced Cystitis x1 summer 2004 (presented with fever) End stage renal disease (HCC) End stage renal disease (HCC) Fracture Childhood, L arm; states she 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 Hyperlipidemia 02/22/2015 Legionnaires' disease (HCC) 1996 during SLE flare, serum antigen +, but urine antigen negative; treated anyway Malignant neoplasm of other specified sites of uterine adnexa 2001 open resection right ovary; suspicious lymphadenopathy and PET results led to lap node sampling end 2001 with negative results; no chemo/XRT; no PET or CT scans for awhile Nephritis and nephropathy, not specified as acute or chronic, with other specified pathological lesion in kidney, in diseases classified elsewhere 1996 nephrotic/nephritic, biopsy Class III treated wtih steroids; biopsy 1997 Class Vb; ? Class IV (received CTX); 2000 and 2001 (? 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; quiescent Type II or unspecified type diabetes mellitus without mention of complication, not stated as uncontrolled steroid induced; also had probably steroid psychosis with high dose Unspecified hypertensive heart and kidney disease without heart failure and with chronic kidney disease stage V or end stage renal disease(404.92) Unspecified hypothyroidism PAST SURGICAL HISTORY Procedure Laterality Date PAST SURGICAL HISTORY OF right oophorectomy, left ovarian biopsy; multiple kidney biopsies; paraaortic and axillary lymph node sampling PAST SURGICAL HISTORY OF 2002, 2002 lymph node biopsies PAST SURGICAL HISTORY OF 2006 peritoneal dialysis cath placement PAST SURGICAL HISTORY OF 2006 AVF, AV graft PAST SURGICAL HISTORY OF 01/05/2012 Kidney transplant PAST SURGICAL HISTORY OF Left 09/2018 knee scope and removal loose body TRANSPLANT KIDNEY W/WO DOP 12/31/2006 SOCIAL HISTORY: Soc (more content not included)... Normal [facility] Reynaldo 04-28-2023 CLARISSE Telephone ([employer]) ASHOK SAUCEDA ([id number]) 1975 F Date Time Provider Department 04/28/23 HUAN THAPA During your visit today, we recorded the following information about you: Crystal Collins LPN 04/28/2023 3:10 PM Signed Patient calling in and left a message. Patient was seen and Dr. Rinaldi put in a right graft years ago. Patient states her arm began to have pain, swelling and redness and went to the ER. Swelling and redness has gone down however patient states she still is in pain. Patient states she was told that graft has clotted off. Patient asking what should she do? Should she make an appointment? Patient states she is a kidney transplant. Crystal Collins LPN April 28, 2023 3:09 PM Rylie Wright, SMILEY[employer] FLOOR TEAM LEADER 04/28/2023 3:15 PM Signed Typically nothing to be done for thrombosed graft. May schedule to be seen/evaluated if she'd like. Thanks, Rylie Wright, SECURITIES CLERK.TRUDY Collins LPN 04/28/2023 4:33 PM Addendum Lucrecia Carver (3:46 PM) [facility] push images for a recent doppler Lucrecia Carver (3:38 PM) Scheduled w/ Dr. Hawk tomorrow at 10:30 am. Allergies As of Date: 04/28/2023 Noted Allergy Reaction SULFA (SULFONAMIDE ANTIBIOTICS) 10/16/2005 1 - Mental Status Change Date Reviewed: 04/27/2023 Reviewed by: Kriss Osman MA - Fully Assessed Reason for Visit: Patient Update [1234] Cmt: Pain in right arm Prescriptions as of 04/28/2023 - amoxicillin-clavulani c acid (AUGMENTIN) 875-125 mg per tablet Take 1 tablet by mouth twice daily. - albuterol HFA (PROVENTIL HFA, VENTOLIN HFA) 90 mcg/actuation inhaler Inhale 2 Puffs as instructed every 4 hours as needed for wheezing/shortness of breath. - allopurinol (ZYLOPRIM) 100 mg tablet Take 2 tablets by mouth once daily. - famotidine (PEPCID) 20 mg tablet TAKE 1 TABLET BY MOUTH TWICE A DAY - furosemide (LASIX) 20 mg tablet TAKE 1 TABLET BY MOUTH DAILY NEEDED FOR EDEMA. - amLODIPine (NORVASC) 10 mg tablet Take 1 tablet by mouth once daily. - carvedilol (COREG) 12.5 mg tablet TAKE 1 TABLET BY MOUTH TWICE A DAY - mycophenolate mofetil (CELLCEPT) 250 mg capsule TAKE 2 CAPSULES BY MOUTH TWICE DAILY. Z94.0 KIDNEY TRANSPLANT - tacrolimus IR (PROGRAF) 1 mg capsule TAKE 2 CAPSULES IN AM AND 3 CAPSULES IN PM - predniSONE (DELTASONE) 5 mg tablet TAKE 1 TABLET BY MOUTH EVERY DAY - simvastatin (ZOCOR) 20 mg tablet TAKE 1 TABLET BY MOUTH EVERY DAY - levothyroxine (SYNTHROID) 50 mcg tablet TAKE 1 TABLET BY MOUTH EVERY DAY - 0.9 % sodium chloride (0.9% NACL) Access implanted vascular access device (IVAD) as needed for flush, blood draw or treatment. Flush IVAD with 10-20 mL NS every 4 weeks and PRN when IVAD not in use. - heparin 100 unit/mL injection Access implanted vascular access device (IVAD) as needed for flush, blood draw or treatment. Before de-accessing port, flush with 10-20ml normal saline and follow with 5 mL heparin (100 units/mL) (if no heparin allergy). De-access port on treatment completion. - Multivitamin capsule Take 1 capsule by mouth once daily. - L gasseri/B bifidum/B longum (PROBIOTIC COLON CARE ORAL) Take 2 capsules by mouth once daily. - flaxseed oil (OMEGA 3 ORAL) Take 2 capsules by mouth once daily. - PROGESTERONE MISC 1 capsule. Daily - folic acid 1 mg tablet Take 1 mg by mouth once daily. - cholecalciferol (VITAMIN D3) 50 mcg (2,000 unit) tablet Take 2,000 Units by mouth once daily. - DARBEPOETIN IRLANDA IN ALBUMN ODELL (ARANESP INJECTION) by INJECTION(UNSPECIFIED PARENTERAL ROUTES) route. - Biotin 10,000 mcg cap Take 1 capsule by mouth once daily. - Ferrous Sulfate (IRON) 325 mg (65 mg iron) tablet Take 1 tablet by mouth twice daily. Problem List As Of Date 04/28/2023 Noted Resolved End stage renal disease [N18.6] 10/16/2005 09/28/2013 Nephritis and nephropathy, not specified as acu*10/16/2005 09/01/2018 Systemic lupus erythematosus [M32.9] DIABETES MELLITUS TYPE II-UNCOMPL [E11.9] Legionnaires' disease [A48.1] 09/28/2013 MALIG SATISH ADNEXA NEC [C57.4] Acquired hemolytic anemia, unspecified (HCC) [D* Thrombocytopenia, unspecified [D69.6] Unspecified hypertensive heart and kidney disea* CORPUS LUTEUM CYST [N83.10] Cough [R05.9] 09/28/2013 Cystitis [595] 09/01/2018 Kidney replaced by transplant [Z94.0] 01/05/2007 Unspecified disease of white blood cells [D72.9]06/03/2007 01/13/2011 Anemia, unspecified [D64.9] 04/11/2009 11/21/2011 Neutropenia, unspecified [D70.9] 11/19/2009 Need for prophylactic immunotherapy [Z29.8] 06/13/2011 09/28/2013 Anemia in chronic renal disease [N18.9, D63.1] 11/21/2011 Urinary tract infection, E. coli [N39.0, B96.20]03/17/2013 09/28/2013 UTI (urinary tract infection) [N39.0] 06/10/2013 09/28/2013 Post-dural puncture headache [G97.1] 06/10/2013 09/28/2013 End stage renal disease (more content not included)... Normal [facility] CBC W Auto Differential pane l (Bld)on 03-17-2023 Basophils (Bld) [#/Vol] <0.11 k/uL [facility] Basophils/100 WBC (Bld) 0.2 % [facility] Differential cell count method Nom (Bld) Auto [facility] Eosinophils (Bld) [#/Vol] 0.09 10*3/uL <0.46 k/uL [facility] Eosinophils/100 WBC (Bld) 1.9 % [facility] Erythrocyte distribution width (RBC) [Ratio] 12.7 % 11.5 - 15.0 % [facility] Hematocrit (Bld) [Volume fraction] 29.4 % Low 36.0 - 46.0 % [facility] Hemoglobin (Bld) [Mass/Vol] 10.1 g/dL Low 11.5 - 15.5 g/dL [facility] Immature granulocytes (Bld) [#/Vol] <0.10 k/uL [facility] Immature granulocytes/100 WBC (Bld) 0.2 % [facility] Lymphocytes (Bld) [#/Vol] 1.08 10*3/uL 1.00 - 4.00 k/uL [facility] Lymphocytes/100 WBC (Bld) 22.5 % [facility] MCH (RBC) [Entitic mass] 30.1 pg 26.0 - 34.0 pg [facility] MCHC (RBC) [Mass/Vol] 34.4 g/dL 30.5 - 36.0 g/dL [facility] MCV (RBC) [Entitic vol] 87.5 fL 80.0 - 100.0 fL [facility] Monocytes (Bld) [#/Vol] 0.60 10*3/uL <0.87 k/uL [facility] Monocytes/100 WBC (Bld) 12.5 % [facility] Neutrophils (Bld) [#/Vol] 3.00 10*3/uL 1.45 - 7.50 k/uL [facility] Neutrophils/100 WBC (Bld) 62.7 % [facility] Nucleated RBC (Bld) [#/Vol] <0.01 k/uL [facility] Nucleated RBC/100 WBC (Bld) [Ratio] 0.0 /100 WBC [facility] Platelet mean volume (Bld) [Entitic vol] 9.0 fL 9.0 - 12.7 fL [facility] Platelets (Bld) [#/Vol] 158 10*3/uL 150 - 400 k/uL [facility] RBC (Bld) [#/Vol] 3.36 10*6/uL Low 3.90 - 5.2 0 m/uL [facility] WBC (Bld) [#/Vol] 4.79 10*3/uL 3.70 - 11. 00 k/uL [facility] Renal function 2000 panelon 03-17-2023 Albumin [Mass/Vol] 4.7 g/dL 3.9 - 4.9 g/dL [facility] Anion gap [Moles/Vol] 11 mmol/L 9 - 18 mmol/L [facility] Calcium [Mass/Vol] 9.2 mg/dL 8.5 - 10. 2 mg/dL [facility] [place] Chloride [Moles/Vol] 107 mmol/L High 97 - 10 5 mmol/L [facility] CO2 [Moles/Vol] 20 mmol/L Low 22 - 30 mmol/L [facility] Creatinine [Mass/Vol] 1.72 mg/dL High 0.58 - 0.96 mg/dL [facility] Estimated Glomerular Filtration Rate 36 mL/min/1.73m Low >=60 mL/min/1.73m [facility] Glucose [Mass/Vol] 92 mg/dL 74 - 99 mg/dL [facility] Phosphate [Mass/Vol] 3.2 mg/dL 2.7 - 4 .8 mg/dL [facility] Potassium [Moles/Vol] 4.5 mmol/L 3.7 - 5.1 mmol/L [facility] Sodium [Moles/Vol] 138 mmol/L 136 - 144 mmol/L [facility] Urea nitrogen [Mass/Vol] 42 mg/dL High 7 - 21 mg/dL [facility] US PELVIS NON-OB W/TRANSVAGI NALon 03-12-2023 US PELVIS NON-OB W/TRANSVAGINAL ORIGINAL EXAMINATION: TRANSVAGINAL PELVIC ULTRASOUND03/11/2023 11:44 am Ultrasound pelvis, transabdominal and transvaginal COMPARISON: Ultrasound 03/22/2019 HISTORY: ORDERING SYSTEM PROVIDED HISTORY: Reason for Exam: RLQ pain, hx multiple surgeries., history of right oophorectomy, postmenopausal bleeding by given patient history FINDINGS: The uterus is 9.5 x 4.0 x 5.8 cm. Artifacts limit evaluation of the anterior myometrium. There is at least 1 subserosal fibroid anteriorly of 1.4 cm. No other discrete uterine mass is seen. The endometrium is mildly heterogeneous and is up to 6.6 mm double wall thickness. No significant blood flow on Doppler. Right ovary: Surgically absent, not visualized Left ovary: Not visualized perhaps obscured by bowel. There is no adnexal mass or pelvic free fluid seen. 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 IMPRESSION: Small anterior subserosal fibroid. 6.6 mm endometrial thickness with mild heterogeneity. Correlate with patient's menopausal status. 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 Interpreted by: Adan Khan MD Preliminary Report By: Adan Khan MD Electronically signed By Adan Khan MD Dictated Date: 03/11/2023 10:32:46 PM Prelim Date: 03/11/2023 10:37:27 PM Sign Date: 03/11/2023 10:37:27 PM Ordering Provider: DILIA Pérez [facility]) APTTon 03-09-2023 aPTT Coag (Bld) [Time] 35.5 s High 25.0-35.0 [facility] ([place]) Comment on above: Result Comment: For Heparin anticoagulation therapy, the recommended therapeutic range is: 50.6-87.4 seconds. Patients on heparin therapy may have an extreme result. Performed By: #### L D, PRO, APTT #### [address] [address] #### FSH, LH, PROG, E2, TESTO, CA125 #### [address] [address] Heparin dose (APTT) None Normal [facility] ([place]) Comment on above: Performed By: #### L D, PRO, APTT #### [address] [address] #### FSH, LH, PROG, E2, TESTO, CA125 #### [address] [address] [id number] 03-09-2023 CA 125 38.0 U/mL High 2.0-35.0 [facility] ([place]) Comment on above: Result Comment: Varsha ent results determined by assays using different manufacturers for methods may not be comparable. Performed By: #### L D, PRO, APTT #### [address] [address] #### FSH, LH, PROG, E2, TESTO, CA125 #### [place] [id number] E2on 03-09-2023 Estradiol Level 39.65 pg/mL Normal [facility] ([place]) Comment on above: Result Comment: No te - New Reference Range in effect 20 Adult Female E2 Reference Ranges: Follicular phase 19.5 - 144.2 pg/mL Midcycle 63.9 - 356.7 pg/mL Luteal phase 55.8 - 214.2 pg/mL Post menopausal 0 - 33.2 pg/mL Performed By: #### L D, PRO, APTT #### [address] [address] #### FSH, LH, PROG, E2, TESTO, CA125 #### [place] [address] FSHon 03-09-2023 FSH 54.5 mIU/mL Normal [facility] ([place]) Comment on above: Result Comment: Adul t Female FSH Reference Ranges (10/09/99): Follicular phase 2.5 - 10.2 mIU/mL Midcycle phase 3.4 - 33.4 mIU/mL Luteal phase 1.5 - 9.1 mIU/mL Post menopausal 23.0 -116.3 mIU/mL Adult Male: 1.4 - 18.1 mIU/mL Performed By: #### L D, PRO, APTT #### [place] [id number] #### FSH, LH, PROG, E2, TESTO, CA125 #### [place] [address] LABORATORYOrdered By: Jo-Ann Louis on 03-09-2023 aPTT Coag (PPP) [Time] 35.5 s Invalid Interpretation Code 25.0 - 35.0 seconds AO [facility] SS Heparin dose (APTT) None Invalid Interpretation Code AO [facility] SS INR Coag (PPP) [Relative time] 0.9 {INR} Invalid Interpretation Code AO [facility] SS PT Coag (PPP) [Time] 10.7 s Invalid Interpretation Code 9.1 - 14.2 seconds AO [facility] SS LABORATORYOrdered By: SYSTEM SYSTEM on 03-09-2023 Cancer Ag 125 Qn 38.0 [arb'U]/mL Invalid Interpretation Code 2.0 - 35.0 U/mL AH ADM SS E2 [Mass/Vol] 39.65 pg/mL Invalid Interpretation Code AH ADM SS Follitropin Qn 54.5 m[IU]/mL Invalid Interpretation Code AH ADM SS LDH [Catalytic activity/Vol] 138 U/L Invalid Interpretation Code 81 - 234 U/L AO ADM SS Lutropin Qn 29.4 m[IU]/mL Invalid Interpretation Code AH ADM SS Progesterone [Mass/Vol] 7.7 ng/mL Invalid Interpretation Code ADM SS Testosterone [Mass/Vol] 84.23 ng/dL Invalid Interpretation Code ADM SS LDHon 03-09-2023 LDH 138 U/L Normal 81-234 [facility] ([place]) Comment on above: Performed By: #### L D, PRO, APTT #### [address] [address] #### FSH, LH, PROG, E2, TESTO, CA125 #### [address] [address] LHon 03-09-2023 LH 29.4 mIU/mL Normal [facility] ([place]) Comment on above: Result Comment: No te - New Reference Range in effect 20Adult Female LH Reference Ranges: Follicular phase 1.9 - 12.5 mIU/mL Midcycle phase 8.7 - 76.3 mIU/mL Luteal phase 0.5 - 16.9 mIU/mL Post menopausal 5.0 - 55.2 mIU/mL Performed By: #### L D, PRO, APTT #### [address] [address] #### FSH, LH, PROG, E2, TESTO, CA125 #### [address] [address] PROon 03-09-2023 PT Coag (PPP) [Time] 10.7 s Normal 9.1-14.2 [facility] ([place]) Comment on above: Performed By: #### L D, PRO, APTT #### [address] [address] #### FSH, LH, PROG, E2, TESTO, CA125 #### [address] [address] PT International Ratio 0.9 Normal [facility] ([place]) Comment on above: Result Comment: The [employer] (CHEST, 1992, 102:312S-25S) recommended therapeutic range for oral anticoagulant therapy is: LOW RISK: Prophylaxis of venous thrombosis INR: 2.0-3.0 Treatment of pulmonary embolism 2.0-3.0 Prevention of systemic embolism 2.0-3.0 HIGH RISK: Mechanical prosthetic valves 2.5-3.5 Performed By: #### L D, PRO, APTT #### [address] [address] #### FSH, LH, PROG, E2, TESTO, CA125 #### [address] [address] PROGon 03-09-2023 Progesterone Level 7.7 ng/mL Normal [facility] ([place]) Comment on above: Result Comment: Adul t Female Progesterone Reference Ranges: Follicular phase <0.21 - 1.40 ng/mL Luteal phase 3.34 - 25.56 ng/mL Mid-Luteal phase 4.44 - 28.03 ng/mL Postmenopausal <0.21 - 0.73 ng/ml Female: First trimester 11.22 - 90.00 ng/ml Second trimester 25.55 - 89.40 ng/ml Third trimester 48.40 - 422.50 ng/ml Performed By: #### L D, PRO, APTT #### [address] [address] #### FSH, LH, PROG, E2, TESTO, CA125 #### [address] [address] TESTOon 03-09-2023 Testosterone Lvl 84.23 ng/dL Normal [facility] ([place]) Comment on above: Result Comment: Norm al Reference Ranges for Females: Female Premenopause Age 21-60 9.01-47.94 ng/dL Female Postmenopause Age 45-89 <7.00-45.62 ng/dL Performed By: #### L D, PRO, APTT #### [address] [place], [place] [address] #### FSH, LH, PROG, E2, TESTO, CA125 #### [address] [address] CBC W Auto Differential pane l (Bld)on 02-09-2023 Basophils (Bld) [#/Vol] <0.11 k/uL [facility] Basophils/100 WBC (Bld) 0.2 % [facility] Differential cell count method Nom (Bld) Auto [facility] Eosinophils (Bld) [#/Vol] 0.09 10*3/uL <0.46 k/uL [facility] Eosinophils/100 WBC (Bld) 2.0 % [facility] Erythrocyte distribution width (RBC) [Ratio] 13.1 % 11.5 - 15.0 % [facility] Hematocrit (Bld) [Volume fraction] 30.5 % Low 36.0 - 46.0 % [facility] Hemoglobin (Bld) [Mass/Vol] 10.2 g/dL Low 11.5 - 15.5 g/dL [facility] Immature granulocytes (Bld) [#/Vol] <0.10 k/uL [facility] Immature granulocytes/100 WBC (Bld) 0.4 % [facility] Lymphocytes (Bld) [#/Vol] 1.32 10*3/uL 1.00 - 4.00 k/uL [facility] Lymphocytes/100 WBC (Bld) 29.7 % [facility] MCH (RBC) [Entitic mass] 29.9 pg 26.0 - 34.0 pg [facility] MCHC (RBC) [Mass/Vol] 33.4 g/dL 30.5 - 36.0 g/dL [facility] MCV (RBC) [Entitic vol] 89.4 fL 80.0 - 100.0 fL [facility] Monocytes (Bld) [#/Vol] 0.45 10*3/uL <0.87 k/uL [facility] Monocytes/100 WBC (Bld) 10.1 % [facility] Neutrophils (Bld) [#/Vol] 2.56 10*3/uL 1.45 - 7.50 k/uL [facility] Neutrophils/100 WBC (Bld) 57.6 % [facility] Nucleated RBC (Bld) [#/Vol] <0.01 k/uL [facility] Nucleated RBC/100 WBC (Bld) [Ratio] 0.0 /100 WBC [facility] Platelet mean volume (Bld) [Entitic vol] 9.7 fL 9.0 - 12.7 fL [facility] Platelets (Bld) [#/Vol] 175 10*3/uL 150 - 400 k/uL [facility] RBC (Bld) [#/Vol] 3.41 10*6/uL Low 3.90 - 5.2 0 m/uL [facility] WBC (Bld) [#/Vol] 4.45 10*3/uL 3.70 - 11. 00 k/uL [facility] Renal function 2000 panelon 02-09-2023 Albumin [Mass/Vol] 4.3 g/dL 3.9 - 4.9 g/dL [facility] Anion gap [Moles/Vol] 11 mmol/L 9 - 18 mmol/L [facility] Calcium [Mass/Vol] 9.1 mg/dL 8.5 - 10. 2 mg/dL [facility] Chloride [Moles/Vol] 107 mmol/L High 97 - 10 5 mmol/L [facility] CO2 [Moles/Vol] 22 mmol/L 22 - 30 mmol/L [facility] Creatinine [Mass/Vol] 1.82 mg/dL High 0.58 - 0.96 mg/dL [facility] Estimated Glomerular Filtration Rate 34 mL/min/1.73m Low >=60 mL/min/1.73m [facility] Glucose [Mass/Vol] 80 mg/dL 74 - 99 mg/dL [facility] Phosphate [Mass/Vol] 3.1 mg/dL 2.7 - 4 .8 mg/dL [facility] Potassium [Moles/Vol] 4.2 mmol/L 3.7 - 5.1 mmol/L [facility] Sodium [Moles/Vol] 140 mmol/L 136 - 144 mmol/L [facility] Urea nitrogen [Mass/Vol] 36 mg/dL High 7 - 21 mg/dL [facility] CBC W Auto Differential pane l (Bld)on 12-25-2022 Basophils (Bld) [#/Vol] <0.11 k/uL [facility] Basophils/100 WBC (Bld) 0.3 % [facility] Differential cell count method Nom (Bld) Auto [facility] Eosinophils (Bld) [#/Vol] 0.13 10*3/uL <0.46 k/uL [facility] Eosinophils/100 WBC (Bld) 2.2 % [facility] Erythrocyte distribution width (RBC) [Ratio] 12.3 % 11.5 - 15.0 % [facility] Hematocrit (Bld) [Volume fraction] 30.8 % Low 36.0 - 46.0 % [facility] Hemoglobin (Bld) [Mass/Vol] 10.5 g/dL Low 11.5 - 15.5 g/dL [facility] Immature granulocytes (Bld) [#/Vol] <0.10 k/uL [facility] Immature granulocytes/100 WBC (Bld) 0.3 % [facility] Lymphocytes (Bld) [#/Vol] 1.75 10*3/uL 1.00 - 4.00 k/uL [facility] Lymphocytes/100 WBC (Bld) 29.4 % [facility] MCH (RBC) [Entitic mass] 30.6 pg 26.0 - 34.0 pg [facility] MCHC (RBC) [Mass/Vol] 34.1 g/dL 30.5 - 36.0 g/dL [facility] MCV (RBC) [Entitic vol] 89.8 fL 80.0 - 100.0 fL [facility] Monocytes (Bld) [#/Vol] 0.52 10*3/uL <0.87 k/uL [facility] Monocytes/100 WBC (Bld) 8.7 % [facility] Neutrophils (Bld) [#/Vol] 3.52 10*3/uL 1.45 - 7.50 k/uL [facility] Neutrophils/100 WBC (Bld) 59.1 % [facility] Nucleated RBC (Bld) [#/Vol] <0.01 k/uL [facility] Nucleated RBC/100 WBC (Bld) [Ratio] 0.0 /100 WBC [facility] Platelet mean volume (Bld) [Entitic vol] 9.4 fL 9.0 - 12.7 fL [facility] Platelets (Bld) [#/Vol] 200 10*3/uL 150 - 400 k/uL [facility] RBC (Bld) [#/Vol] 3.43 10*6/uL Low 3.90 - 5.2 0 m/uL [facility] WBC (Bld) [#/Vol] 5.96 10*3/uL 3.70 - 11. 00 k/uL [facility] Renal function 2000 panelon 12-25-2022 Albumin [Mass/Vol] 4.6 g/dL 3.9 - 4.9 g/dL [facility] Anion gap [Moles/Vol] 13 mmol/L 9 - 18 mmol/L [facility] Calcium [Mass/Vol] 9.5 mg/dL 8.5 - 10. 2 mg/dL [facility] Chloride [Moles/Vol] 106 mmol/L High 97 - 10 5 mmol/L [facility] CO2 [Moles/Vol] 21 mmol/L Low 22 - 30 mmol/L [facility] Creatinine [Mass/Vol] 1.73 mg/dL High 0.58 - 0.96 mg/dL [facility] Estimated Glomerular Filtration Rate 36 mL/min/1.73m Low >=60 mL/min/1.73m [facility] Glucose [Mass/Vol] 80 mg/dL 74 - 99 mg/dL [facility] Phosphate [Mass/Vol] 3.9 mg/dL 2.7 - 4 .8 mg/dL [facility] Potassium [Moles/Vol] 4.2 mmol/L 3.7 - 5.1 mmol/L [facility] Sodium [Moles/Vol] 140 mmol/L 136 - 144 mmol/L [facility] Urea nitrogen [Mass/Vol] 47 mg/dL High 7 - 21 mg/dL [facility] STREP A MOLECULAR (POC)on Procedural Control Valid [facility] Strep A (POCT) Negative Negative [facility] CBC W Auto Differential pane l (Bld)on 11-13-2022 Basophils (Bld) [#/Vol] <0.11 k/uL [facility] Basophils/100 WBC (Bld) 0.2 % [facility] Differential cell count method Nom (Bld) Auto [facility] Eosinophils (Bld) [#/Vol] 0.13 10*3/uL <0.46 k/uL [facility] Eosinophils/100 WBC (Bld) 2.6 % [facility] Erythrocyte distribution width (RBC) [Ratio] 12.6 % 11.5 - 15.0 % [facility] Hematocrit (Bld) [Volume fraction] 30.1 % Low 36.0 - 46.0 % [facility] Hemoglobin (Bld) [Mass/Vol] 10.1 g/dL Low 11.5 - 15.5 g/dL [facility] Immature granulocytes (Bld) [#/Vol] <0.10 k/uL [facility] Immature granulocytes/100 WBC (Bld) 0.4 % [facility] Lymphocytes (Bld) [#/Vol] 1.44 10*3/uL 1.00 - 4.00 k/uL [facility] Lymphocytes/100 WBC (Bld) 28.6 % [facility] MCH (RBC) [Entitic mass] 30.1 pg 26.0 - 34.0 pg [facility] MCHC (RBC) [Mass/Vol] 33.6 g/dL 30.5 - 36.0 g/dL [facility] MCV (RBC) [Entitic vol] 89.9 fL 80.0 - 100.0 fL [facility] Monocytes (Bld) [#/Vol] 0.51 10*3/uL <0.87 k/uL [facility] Monocytes/100 WBC (Bld) 10.1 % [facility] Neutrophils (Bld) [#/Vol] 2.92 10*3/uL 1.45 - 7.50 k/uL [facility] Neutrophils/100 WBC (Bld) 58.1 % [facility] Nucleated RBC (Bld) [#/Vol] <0.01 k/uL [facility] Nucleated RBC/100 WBC (Bld) [Ratio] 0.0 /100 WBC [facility] Platelet mean volume (Bld) [Entitic vol] 9.5 fL 9.0 - 12.7 fL [facility] Platelets (Bld) [#/Vol] 174 10*3/uL 150 - 400 k/uL [facility] RBC (Bld) [#/Vol] 3.35 10*6/uL Low 3.90 - 5.2 0 m/uL [facility] WBC (Bld) [#/Vol] 5.03 10*3/uL 3.70 - 11. 00 k/uL [facility] Renal function 2000 panelon 11-13-2022 Albumin [Mass/Vol] 4.6 g/dL 3.9 - 4.9 g/dL [facility] Anion gap [Moles/Vol] 12 mmol/L 9 - 18 mmol/L [facility] Calcium [Mass/Vol] 9.6 mg/dL 8.5 - 10. 2 mg/dL [facility] Chloride [Moles/Vol] 107 mmol/L High 97 - 10 5 mmol/L [facility] CO2 [Moles/Vol] 19 mmol/L Low 22 - 30 mmol/L [facility] Creatinine [Mass/Vol] 1.66 mg/dL High 0.58 - 0.96 mg/dL [facility] Estimated Glomerular Filtration Rate 38 mL/min/1.73m Low >=60 mL/min/1.73m [facility] Glucose [Mass/Vol] 84 mg/dL 74 - 99 mg/dL [facility] Phosphate [Mass/Vol] 4.1 mg/dL 2.7 - 4 .8 mg/dL [facility] Potassium [Moles/Vol] 4.5 mmol/L 3.7 - 5.1 mmol/L [facility] Sodium [Moles/Vol] 138 mmol/L 136 - 144 mmol/L [facility] Urea nitrogen [Mass/Vol] 44 mg/dL High 7 - 21 mg/dL [facility] TACROLIMUS/FK-506 BLon 11-13 Tacrolimus (Bld) [Mass/Vol] 24.9 ng/mL High 5.0 - 20.0 ng/mL [facility] MA MAMMOGRAM DIAGNOSTIC BILA TERAL W/TOMOon 11-04-2022 [place] MAMMOGRAM DIAGNOSTIC BILATERAL W/BRENNAN ORIGINAL FROM: [facility] [address] [address] PROCEDURE FOR: ASHOK SAUCEDA [address] [place] [address] Home: PID#: [id number] Exam#: [id number] : 1975 Age: 47 TO: DILIA MORALES MD [address] [facility] [address] [place], [place] [address] Fax: NO FAX EXAMINATION: DIAGNOSTIC BILATERAL MAMMOGRAM WITH TOMOSYNTHESIS, 11/04/2022 10:41 am TECHNIQUE: Tomosynthesis was performed as part of the diagnostic bilateral mammogram. 2D standard and 3D tomosynthesis combination imaging performed. Current study was also evaluated with a Computer Aided Detection (CAD) system. COMPARISON: 01/20/2019 HISTORY: ORDERING SYSTEM PROVIDED HISTORY: Reason for Exam: left breast lump 0200, 7cm from nipple FINDINGS: BREAST DENSITY: Extremely Dense There are benign appearing calcifications in the right breast. No significant masses, calcifications, or other findings. IMPRESSION: No mammographic findings to correlate with the patient's palpable lump. An ultrasound will be performed today and will be reported separately. [employer] calculations report this patient's 10 year risk and lifetime risk for developing breast cancer at 6.0% and 26.1%, respectively. Based on this assessment tool, this patient's calculated lifetime risk is at or above 20% and they may be a candidate for breast MRI screening per the [employer]. Consider annual MRI screening in addition to annual mammographic screening. BIRADS: MAMMOGRAM BI-RADS: 0: Needs addl evaluation RECALL: immediate RECALL TYPE: US LETTER SENT: Normal-Needs additional work up BI-RADS 0 Interpreted by: Sandeep August MD Preliminary Report By: Sandeep August MD Electronically signed By Sandeep August MD Dictated Date: 11/04/2022 12:05:57 PM Prelim Date: 11/04/2022 12:06:51 PM Sign Date: 11/04/2022 12:06:51 PM Ordering Provider: DILIA MORALES Manager Story: SAMANTA MICHAEL RT (R)(M) letter sent: Normal-Needs additional work up BI-RADS 0 Mammogram BI-RADS: 0 Indeterminate Normal [facility] ([place]) US BREAST LEFT COMPLETEon US BREAST LEFT COMPLETE ORIGINAL FROM: [facility] [address] [place], [place] [address] PROCEDURE FOR: ASHOK SAUCEDA [address] [place] [address] Home: PID#: [id number] Exam#: [id number] : 1975 Age: 47 TO: DILIA MORALES MD [address] [place] [address] Fax: NO FAX EXAMINATION: ULTRASOUND OF THE LEFT BREAST 11/04/2022 11:30 am TECHNIQUE: Color flow and real-time targeted ultrasound of the left breast 2 o'clock were performed. COMPARISON: 11/04/2022, 01/20/2019 HISTORY: ORDERING SYSTEM PROVIDED HISTORY: Reason for Exam: left breast lump 0200, 7cm from nipple FINDINGS: There are no significant sonographic findings to correlate with the palpable abnormality. The patient is probably palpating a fat lobule. IMPRESSION: There are no significant sonographic findings to correlate with the palpable abnormality. Clinical follow up is recommended. The patient may return to annual mammographic screening. [employer] wishkickerzick calculations report this patient's 10 year risk and lifetime risk for developing breast cancer at 6.0% and 26.1%, respectively. Based on this assessment tool, this patient's calculated lifetime risk is at or above 20% and they may be a candidate for breast MRI screening per the [employer]. Consider annual MRI screening in addition to annual mammographic screening. BIRADS: MAMMOGRAM BI-RADS: 2: Benign finding RECALL: return to screening RECALL TYPE: mammo LETTER SENT: Normal BI-RADS 1 and 2 Interpreted by: Sandeep August MD Preliminary Report By: Sandeep August MD Electronically signed By Sandeep August MD Dictated Date: 11/04/2022 11:52:25 AM Prelim Date: 11/04/2022 12:05:21 PM Sign Date: 11/04/2022 12:05:21 PM Ordering Provider: DILIA MORALES CLINICAL: PALPABLE LUMP LEFT BREAST. Manager Story: ODESSA GIRON RT,RDMS,RVT,RDCS letter sent: Normal BI-RADS 1 and 2 Ultrasound BI-RADS: 2 Benign Normal [facility] ([place]) CBC W Auto Differential pane l (Bld)on 10-02-2022 Basophils (Bld) [#/Vol] <0.11 k/uL [facility] Basophils/100 WBC (Bld) 0.2 % [facility] Differential cell count method Nom (Bld) Auto [facility] Eosinophils (Bld) [#/Vol] 0.13 10*3/uL <0.46 k/uL [facility] Eosinophils/100 WBC (Bld) 2.6 % [facility] Erythrocyte distribution width (RBC) [Ratio] 13.8 % 11.5 - 15.0 % [facility] Hematocrit (Bld) [Volume fraction] 32.5 % Low 36.0 - 46.0 % [facility] Hemoglobin (Bld) [Mass/Vol] 10.7 g/dL Low 11.5 - 15.5 g/dL [facility] Immature granulocytes (Bld) [#/Vol] <0.10 k/uL [facility] Immature granulocytes/100 WBC (Bld) 0.2 % [facility] Lymphocytes (Bld) [#/Vol] 1.27 10*3/uL 1.00 - 4.00 k/uL [facility] Lymphocytes/100 WBC (Bld) 25.4 % [facility] MCH (RBC) [Entitic mass] 30.0 pg 26.0 - 34.0 pg [facility] MCHC (RBC) [Mass/Vol] 32.9 g/dL 30.5 - 36.0 g/dL [facility] MCV (RBC) [Entitic vol] 91.0 fL 80.0 - 100.0 fL [facility] Monocytes (Bld) [#/Vol] 0.56 10*3/uL <0.87 k/uL [facility] Monocytes/100 WBC (Bld) 11.2 % [facility] Neutrophils (Bld) [#/Vol] 3.02 10*3/uL 1.45 - 7.50 k/uL [facility] Neutrophils/100 WBC (Bld) 60.4 % [facility] Nucleated RBC (Bld) [#/Vol] <0.01 k/uL [facility] Nucleated RBC/100 WBC (Bld) [Ratio] 0.0 /100 WBC [facility] Platelet mean volume (Bld) [Entitic vol] 9.9 fL 9.0 - 12.7 fL [facility] Platelets (Bld) [#/Vol] 161 10*3/uL 150 - 400 k/uL [facility] RBC (Bld) [#/Vol] 3.57 10*6/uL Low 3.90 - 5.2 0 m/uL [facility] WBC (Bld) [#/Vol] 5.00 10*3/uL 3.70 - 11. 00 k/uL [facility] Renal function 2000 panelon 10-02-2022 Albumin [Mass/Vol] 4.6 g/dL 3.9 - 4.9 g/dL [facility] Anion gap [Moles/Vol] 10 mmol/L 9 - 18 mmol/L [facility] Calcium [Mass/Vol] 9.5 mg/dL 8.5 - 10. 2 mg/dL [facility] Chloride [Moles/Vol] 110 mmol/L High 97 - 10 5 mmol/L [facility] CO2 [Moles/Vol] 21 mmol/L Low 22 - 30 mmol/L [facility] Creatinine [Mass/Vol] 1.89 mg/dL High 0.58 - 0.96 mg/dL [facility] Estimated Glomerular Filtration Rate 33 mL/min/1.73m Low >=60 mL/min/1.73m [facility] Glucose [Mass/Vol] 93 mg/dL 74 - 99 mg/dL [facility] Phosphate [Mass/Vol] 3.3 mg/dL 2.7 - 4 .8 mg/dL [facility] Potassium [Moles/Vol] 4.1 mmol/L 3.7 - 5.1 mmol/L [facility] Sodium [Moles/Vol] 141 mmol/L 136 - 144 mmol/L [facility] Urea nitrogen [Mass/Vol] 39 mg/dL High 7 - 21 mg/dL [facility] CBC W Auto Differential pane l (Bld)on 07-17-2022 Abs Immature Gran <0.10 k/uL [facility] Basophils (Bld) [#/Vol] <0.11 k/uL [facility] Basophils/100 WBC (Bld) 0.2 % [facility] Differential cell count method Nom (Bld) Auto [facility] Eosinophils (Bld) [#/Vol] 0.09 10*3/uL <0.46 k/uL [facility] Eosinophils/100 WBC (Bld) 2.1 % [facility] Erythrocyte distribution width (RBC) [Ratio] 12.8 % 11.5 - 15.0 % [facility] Hematocrit (Bld) [Volume fraction] 31.3 % Low 36.0 - 46.0 % [facility] Hemoglobin (Bld) [Mass/Vol] 10.6 g/dL Low 11.5 - 15.5 g/dL [facility] Immature Gran % 0.2 % [facility] Lymphocytes (Bld) [#/Vol] 1.34 10*3/uL 1.00 - 4.00 k/uL [facility] Lymphocytes/100 WBC (Bld) 30.7 % [facility] MCH (RBC) [Entitic mass] 30.1 pg 26.0 - 34.0 pg [facility] MCHC (RBC) [Mass/Vol] 33.9 g/dL 30.5 - 36.0 g/dL [facility] MCV (RBC) [Entitic vol] 88.9 fL 80.0 - 100.0 fL [facility] Monocytes (Bld) [#/Vol] 0.49 10*3/uL <0.87 k/uL [facility] Monocytes/100 WBC (Bld) 11.2 % [facility] Neutrophils (Bld) [#/Vol] 2.43 10*3/uL 1.45 - 7.50 k/uL [facility] Neutrophils/100 WBC (Bld) 55.6 % [facility] Nucleated RBC (Bld) [#/Vol] <0.01 k/uL [facility] Nucleated RBC/100 WBC (Bld) [Ratio] 0.0 /100 WBC [facility] Platelet mean volume (Bld) [Entitic vol] 9.6 fL 9.0 - 12.7 fL [facility] Platelets (Bld) [#/Vol] 183 10*3/uL 150 - 400 k/uL [facility] RBC (Bld) [#/Vol] 3.52 10*6/uL Low 3.90 - 5.2 0 m/uL [facility] WBC (Bld) [#/Vol] 4.37 10*3/uL 3.70 - 11. 00 k/uL [facility] Renal function 2000 panelon 07-17-2022 Albumin [Mass/Vol] 4.7 g/dL 3.9 - 4.9 g/dL [facility] Anion gap [Moles/Vol] 13 mmol/L 9 - 18 mmol/L [facility] Calcium [Mass/Vol] 9.4 mg/dL 8.5 - 10. 2 mg/dL [facility] Chloride [Moles/Vol] 105 mmol/L 97 - 10 5 mmol/L [facility] CO2 [Moles/Vol] 22 mmol/L 22 - 30 mmol/L [facility] Creatinine [Mass/Vol] 1.75 mg/dL High 0.58 - 0.96 mg/dL [facility] Estimated Glomerular Filtration Rate 36 mL/min/1.73m Low >=60 mL/min/1.73m [facility] Glucose [Mass/Vol] 73 mg/dL Low 74 - 99 mg/dL [facility] Phosphate [Mass/Vol] 3.4 mg/dL 2.7 - 4 .8 mg/dL [facility] Potassium [Moles/Vol] 4.2 mmol/L 3.7 - 5.1 mmol/L [facility] Sodium [Moles/Vol] 140 mmol/L 136 - 144 mmol/L [facility] Urea nitrogen [Mass/Vol] 42 mg/dL High 7 - 21 mg/dL [facility] CBC W Auto Differential pane l (Bld)on 07-03-2022 Abs Immature Gran <0.10 k/uL [facility] Basophils (Bld) [#/Vol] <0.11 k/uL [facility] Basophils/100 WBC (Bld) 0.5 % [facility] Differential cell count method Nom (Bld) Auto [facility] Eosinophils (Bld) [#/Vol] 0.08 10*3/uL <0.46 k/uL [facility] Eosinophils/100 WBC (Bld) 1.9 % [facility] Erythrocyte distribution width (RBC) [Ratio] 12.8 % 11.5 - 15.0 % [facility] Hematocrit (Bld) [Volume fraction] 30.9 % Low 36.0 - 46.0 % [facility] Hemoglobin (Bld) [Mass/Vol] 10.5 g/dL Low 11.5 - 15.5 g/dL [facility] Immature Gran % 0.2 % [facility] Lymphocytes (Bld) [#/Vol] 1.43 10*3/uL 1.00 - 4.00 k/uL [facility] Lymphocytes/100 WBC (Bld) 34.5 % [facility] MCH (RBC) [Entitic mass] 30.4 pg 26.0 - 34.0 pg [facility] MCHC (RBC) [Mass/Vol] 34.0 g/dL 30.5 - 36.0 g/dL [facility] MCV (RBC) [Entitic vol] 89.6 fL 80.0 - 100.0 fL [facility] Monocytes (Bld) [#/Vol] 0.47 10*3/uL <0.87 k/uL [facility] Monocytes/100 WBC (Bld) 11.3 % [facility] Neutrophils (Bld) [#/Vol] 2.14 10*3/uL 1.45 - 7.50 k/uL [facility] Neutrophils/100 WBC (Bld) 51.6 % [facility] Nucleated RBC (Bld) [#/Vol] <0.01 k/uL [facility] Nucleated RBC/100 WBC (Bld) [Ratio] 0.0 /100 WBC [facility] Platelet mean volume (Bld) [Entitic vol] 9.6 fL 9.0 - 12.7 fL [facility] Platelets (Bld) [#/Vol] 146 10*3/uL Low 150 - 400 k/uL [facility] RBC (Bld) [#/Vol] 3.45 10*6/uL Low 3.90 - 5.2 0 m/uL [facility] WBC (Bld) [#/Vol] 4.15 10*3/uL 3.70 - 11. 00 k/uL [facility] Renal function 2000 panelon 07-03-2022 Albumin [Mass/Vol] 4.7 g/dL 3.9 - 4.9 g/dL [facility] Anion gap [Moles/Vol] 12 mmol/L 9 - 18 mmol/L [facility] Calcium [Mass/Vol] 9.4 mg/dL 8.5 - 10. 2 mg/dL [facility] Chloride [Moles/Vol] 108 mmol/L High 97 - 10 5 mmol/L [facility] CO2 [Moles/Vol] 21 mmol/L Low 22 - 30 mmol/L [facility] Creatinine [Mass/Vol] 1.62 mg/dL High 0.58 - 0.96 mg/dL [facility] Estimated Glomerular Filtration Rate 39 mL/min/1.73m Low >=60 mL/min/1.73m [facility] Glucose [Mass/Vol] 80 mg/dL 74 - 99 mg/dL [facility] Phosphate [Mass/Vol] 3.5 mg/dL 2.7 - 4 .8 mg/dL [facility] Potassium [Moles/Vol] 4.5 mmol/L 3.7 - 5.1 mmol/L [facility] Sodium [Moles/Vol] 141 mmol/L 136 - 144 mmol/L [facility] Urea nitrogen [Mass/Vol] 32 mg/dL High 7 - 21 mg/dL [facility] CBC W Auto Differential pane l (Bld)on 06-18-2022 Abs Immature Gran <0.03 <0.10 k/uL [facility] Basophils (Bld) [#/Vol] 10*3/uL <0.11 k/uL [facility] Basophils/100 WBC (Bld) 0.0 % [facility] Differential cell count method Nom (Bld) Auto [facility] Eosinophils (Bld) [#/Vol] 0.06 10*3/uL <0.46 k/uL [facility] Eosinophils/100 WBC (Bld) 1.6 % [facility] Erythrocyte distribution width (RBC) [Ratio] 12.5 % 11.5 - 15.0 % [facility] Hematocrit (Bld) [Volume fraction] 31.5 % Low 36.0 - 46.0 % [facility] Hemoglobin (Bld) [Mass/Vol] 10.6 g/dL Low 11.5 - 15.5 g/dL [facility] Immature Gran % 0.3 % [facility] Lymphocytes (Bld) [#/Vol] 1.29 10*3/uL 1.00 - 4.00 k/uL [facility] Lymphocytes/100 WBC (Bld) 33.5 % [facility] MCH (RBC) [Entitic mass] 30.2 pg 26.0 - 34.0 pg [facility] MCHC (RBC) [Mass/Vol] 33.7 g/dL 30.5 - 36.0 g/dL [facility] MCV (RBC) [Entitic vol] 89.7 fL 80.0 - 100.0 fL [facility] Monocytes (Bld) [#/Vol] 0.36 10*3/uL <0.87 k/uL [facility] Monocytes/100 WBC (Bld) 9.4 % [facility] Neutrophils (Bld) [#/Vol] 2.13 10*3/uL 1.45 - 7.50 k/uL [facility] Neutrophils/100 WBC (Bld) 55.2 % [facility] Nucleated RBC (Bld) [#/Vol] 10*3/uL <0.01 k/uL [facility] Nucleated RBC/100 WBC (Bld) [Ratio] 0.0 /100 WBC [facility] Platelet mean volume (Bld) [Entitic vol] 9.4 fL 9.0 - 12.7 fL [facility] Platelets (Bld) [#/Vol] 186 10*3/uL 150 - 400 k/uL [facility] RBC (Bld) [#/Vol] 3.51 10*6/uL Low 3.90 - 5.2 0 m/uL [facility] WBC (Bld) [#/Vol] 3.85 10*3/uL 3.70 - 11. 00 k/uL [facility] Renal function 2000 panelon 06-18-2022 Albumin [Mass/Vol] 4.5 g/dL 3.9 - 4.9 g/dL [facility] Anion gap [Moles/Vol] 12 mmol/L 9 - 18 mmol/L [facility] Calcium [Mass/Vol] 9.3 mg/dL 8.5 - 10. 2 mg/dL [facility] Chloride [Moles/Vol] 108 mmol/L High 97 - 10 5 mmol/L [facility] CO2 [Moles/Vol] 21 mmol/L Low 22 - 30 mmol/L [facility] Creatinine [Mass/Vol] 1.60 mg/dL High 0.58 - 0.96 mg/dL [facility] Estimated Glomerular Filtration Rate 40 mL/min/1.73m Low >=60 mL/min/1.73m [facility] Glucose [Mass/Vol] 111 mg/dL High 74 - 99 mg/dL [facility] Phosphate [Mass/Vol] 3.4 mg/dL 2.7 - 4 .8 mg/dL [facility] Potassium [Moles/Vol] 3.8 mmol/L 3.7 - 5.1 mmol/L [facility] Sodium [Moles/Vol] 141 mmol/L 136 - 144 mmol/L [facility] Urea nitrogen [Mass/Vol] 27 mg/dL High 7 - 21 mg/dL [facility] CBC W Auto Differential pane l (Bld)on 05-08-2022 Abs Immature Gran <0.03 <0.10 k/uL [facility] Basophils (Bld) [#/Vol] 10*3/uL <0.11 k/uL [facility] Basophils/100 WBC (Bld) 0.2 % [facility] Differential cell count method Nom (Bld) Auto [facility] Eosinophils (Bld) [#/Vol] 0.09 10*3/uL <0.46 k/uL [facility] Eosinophils/100 WBC (Bld) 1.9 % [facility] Erythrocyte distribution width (RBC) [Ratio] 12.2 % 11.5 - 15.0 % [facility] Hematocrit (Bld) [Volume fraction] 32.4 % Low 36.0 - 46.0 % [facility] Hemoglobin (Bld) [Mass/Vol] 10.8 g/dL Low 11.5 - 15.5 g/dL [facility] Immature Gran % 0.4 % [facility] Lymphocytes (Bld) [#/Vol] 1.30 10*3/uL 1.00 - 4.00 k/uL [facility] Lymphocytes/100 WBC (Bld) 27.4 % [facility] MCH (RBC) [Entitic mass] 30.0 pg 26.0 - 34.0 pg [facility] MCHC (RBC) [Mass/Vol] 33.3 g/dL 30.5 - 36.0 g/dL [facility] MCV (RBC) [Entitic vol] 90.0 fL 80.0 - 100.0 fL [facility] Monocytes (Bld) [#/Vol] 0.60 10*3/uL <0.87 k/uL [facility] Monocytes/100 WBC (Bld) 12.6 % [facility] Neutrophils (Bld) [#/Vol] 2.73 10*3/uL 1.45 - 7.50 k/uL [facility] Neutrophils/100 WBC (Bld) 57.5 % [facility] Nucleated RBC (Bld) [#/Vol] 10*3/uL <0.01 k/uL [facility] Nucleated RBC/100 WBC (Bld) [Ratio] 0.0 /100 WBC [facility] Platelet mean volume (Bld) [Entitic vol] 9.0 fL 9.0 - 12.7 fL [facility] Platelets (Bld) [#/Vol] 159 10*3/uL 150 - 400 k/uL [facility] RBC (Bld) [#/Vol] 3.60 10*6/uL Low 3.90 - 5.2 0 m/uL [facility] WBC (Bld) [#/Vol] 4.75 10*3/uL 3.70 - 11. 00 k/uL [facility] Renal function 2000 panelon 05-08-2022 Albumin [Mass/Vol] 4.5 g/dL 3.9 - 4.9 g/dL [facility] Anion gap [Moles/Vol] 11 mmol/L 9 - 18 mmol/L [facility] Calcium [Mass/Vol] 9.1 mg/dL 8.5 - 10. 2 mg/dL [facility] Chloride [Moles/Vol] 106 mmol/L High 97 - 10 5 mmol/L [facility] CO2 [Moles/Vol] 23 mmol/L 22 - 30 mmol/L [facility] Creatinine [Mass/Vol] 1.67 mg/dL High 0.58 - 0.96 mg/dL [facility] Estimated Glomerular Filtration Rate 38 mL/min/1.73m Low >=60 mL/min/1.73m [facility] Glucose [Mass/Vol] 85 mg/dL 74 - 99 mg/dL [facility] Phosphate [Mass/Vol] 3.2 mg/dL 2.7 - 4 .8 mg/dL [facility] Potassium [Moles/Vol] 4.3 mmol/L 3.7 - 5.1 mmol/L [facility] Sodium [Moles/Vol] 140 mmol/L 136 - 144 mmol/L [facility] Urea nitrogen [Mass/Vol] 38 mg/dL High 7 - 21 mg/dL [facility] CBC W Auto Differential pane l (Bld)on 04-10-2022 Abs Immature Gran <0.03 <0.10 k/uL [facility] Basophils (Bld) [#/Vol] 10*3/uL <0.11 k/uL [facility] Basophils/100 WBC (Bld) 0.2 % [facility] Differential cell count method Nom (Bld) Auto [facility] Eosinophils (Bld) [#/Vol] 0.08 10*3/uL <0.46 k/uL [facility] Eosinophils/100 WBC (Bld) 1.9 % [facility] Erythrocyte distribution width (RBC) [Ratio] 12.6 % 11.5 - 15.0 % [facility] Hematocrit (Bld) [Volume fraction] 31.7 % Low 36.0 - 46.0 % [facility] Hemoglobin (Bld) [Mass/Vol] 10.7 g/dL Low 11.5 - 15.5 g/dL [facility] Immature Gran % 0.5 % [facility] Lymphocytes (Bld) [#/Vol] 1.49 10*3/uL 1.00 - 4.00 k/uL [facility] Lymphocytes/100 WBC (Bld) 36.3 % [facility] MCH (RBC) [Entitic mass] 30.5 pg 26.0 - 34.0 pg [facility] MCHC (RBC) [Mass/Vol] 33.8 g/dL 30.5 - 36.0 g/dL [facility] MCV (RBC) [Entitic vol] 90.3 fL 80.0 - 100.0 fL [facility] Monocytes (Bld) [#/Vol] 0.49 10*3/uL <0.87 k/uL [facility] Monocytes/100 WBC (Bld) 11.9 % [facility] Neutrophils (Bld) [#/Vol] 2.02 10*3/uL 1.45 - 7.50 k/uL [facility] Neutrophils/100 WBC (Bld) 49.2 % [facility] Nucleated RBC (Bld) [#/Vol] 10*3/uL <0.01 k/uL [facility] Nucleated RBC/100 WBC (Bld) [Ratio] 0.0 /100 WBC [facility] Platelet mean volume (Bld) [Entitic vol] 9.6 fL 9.0 - 12.7 fL [facility] Platelets (Bld) [#/Vol] 171 10*3/uL 150 - 400 k/uL [facility] RBC (Bld) [#/Vol] 3.51 10*6/uL Low 3.90 - 5.2 0 m/uL [facility] WBC (Bld) [#/Vol] 4.11 10*3/uL 3.70 - 11. 00 k/uL [facility] Renal function 2000 panelon 04-10-2022 Albumin [Mass/Vol] 4.8 g/dL 3.9 - 4.9 g/dL [facility] Anion gap [Moles/Vol] 13 mmol/L 9 - 18 mmol/L [facility] Calcium [Mass/Vol] 9.5 mg/dL 8.5 - 10. 2 mg/dL [facility] Chloride [Moles/Vol] 108 mmol/L High 97 - 10 5 mmol/L [facility] CO2 [Moles/Vol] 20 mmol/L Low 22 - 30 mmol/L [facility] Creatinine [Mass/Vol] 1.73 mg/dL High 0.58 - 0.96 mg/dL [facility] Estimated Glomerular Filtration Rate 36 mL/min/1.73m Low >=60 mL/min/1.73m [facility] Glucose [Mass/Vol] 107 mg/dL High 74 - 99 mg/dL [facility] Phosphate [Mass/Vol] 3.3 mg/dL 2.7 - 4 .8 mg/dL [facility] Potassium [Moles/Vol] 3.6 mmol/L Low 3.7 - 5.1 mmol/L [facility] Sodium [Moles/Vol] 141 mmol/L 136 - 144 mmol/L [facility] Urea nitrogen [Mass/Vol] 46 mg/dL High 7 - 21 mg/dL [facility] CBC W Auto Differential pane l (Bld)on 03-27-2022 Abs Immature Gran <0.03 <0.10 k/uL [facility] Basophils (Bld) [#/Vol] 10*3/uL <0.11 k/uL [facility] Basophils/100 WBC (Bld) 0.2 % [facility] Differential cell count method Nom (Bld) Auto [facility] Eosinophils (Bld) [#/Vol] 0.09 10*3/uL <0.46 k/uL [facility] Eosinophils/100 WBC (Bld) 2.0 % [facility] Erythrocyte distribution width (RBC) [Ratio] 12.8 % 11.5 - 15.0 % [facility] Hematocrit (Bld) [Volume fraction] 31.0 % Low 36.0 - 46.0 % [facility] Hemoglobin (Bld) [Mass/Vol] 10.5 g/dL Low 11.5 - 15.5 g/dL [facility] Immature Gran % 0.2 % [facility] Lymphocytes (Bld) [#/Vol] 1.24 10*3/uL 1.00 - 4.00 k/uL [facility] Lymphocytes/100 WBC (Bld) 27.3 % [facility] MCH (RBC) [Entitic mass] 30.7 pg 26.0 - 34.0 pg [facility] MCHC (RBC) [Mass/Vol] 33.9 g/dL 30.5 - 36.0 g/dL [facility] MCV (RBC) [Entitic vol] 90.6 fL 80.0 - 100.0 fL [facility] Monocytes (Bld) [#/Vol] 0.56 10*3/uL <0.87 k/uL [facility] Monocytes/100 WBC (Bld) 12.3 % [facility] Neutrophils (Bld) [#/Vol] 2.63 10*3/uL 1.45 - 7.50 k/uL [facility] Neutrophils/100 WBC (Bld) 58.0 % [facility] Nucleated RBC (Bld) [#/Vol] 10*3/uL <0.01 k/uL [facility] Nucleated RBC/100 WBC (Bld) [Ratio] 0.0 /100 WBC [facility] Platelet mean volume (Bld) [Entitic vol] 9.0 fL 9.0 - 12.7 fL [facility] Platelets (Bld) [#/Vol] 165 10*3/uL 150 - 400 k/uL [facility] RBC (Bld) [#/Vol] 3.42 10*6/uL Low 3.90 - 5.2 0 m/uL [facility] WBC (Bld) [#/Vol] 4.54 10*3/uL 3.70 - 11. 00 k/uL [facility] No Panel Informationon 03-27 [facility] CBC W Auto Differential pane l (Bld)on 03-13-2022 Abs Immature Gran <0.03 <0.10 k/uL [facility] Basophils (Bld) [#/Vol] 10*3/uL <0.11 k/uL [facility] Basophils/100 WBC (Bld) 0.2 % [facility] Differential cell count method Nom (Bld) Auto [facility] Eosinophils (Bld) [#/Vol] 0.07 10*3/uL <0.46 k/uL [facility] Eosinophils/100 WBC (Bld) 1.6 % [facility] Erythrocyte distribution width (RBC) [Ratio] 13.0 % 11.5 - 15.0 % [facility] Hematocrit (Bld) [Volume fraction] 30.9 % Low 36.0 - 46.0 % [facility] Hemoglobin (Bld) [Mass/Vol] 10.1 g/dL Low 11.5 - 15.5 g/dL [facility] Immature Gran % 0.4 % [facility] Lymphocytes (Bld) [#/Vol] 1.31 10*3/uL 1.00 - 4.00 k/uL [facility] Lymphocytes/100 WBC (Bld) 29.0 % [facility] MCH (RBC) [Entitic mass] 30.1 pg 26.0 - 34.0 pg [facility] MCHC (RBC) [Mass/Vol] 32.7 g/dL 30.5 - 36.0 g/dL [facility] [facility] MCV (RBC) [Entitic vol] 92.0 fL 80.0 - 100.0 fL [facility] Monocytes (Bld) [#/Vol] 0.51 10*3/uL <0.87 k/uL [facility] Monocytes/100 WBC (Bld) 11.3 % [facility] Neutrophils (Bld) [#/Vol] 2.59 10*3/uL 1.45 - 7.50 k/uL [facility] Neutrophils/100 WBC (Bld) 57.5 % [facility] Nucleated RBC (Bld) [#/Vol] 10*3/uL <0.01 k/uL [facility] Nucleated RBC/100 WBC (Bld) [Ratio] 0.0 /100 WBC [facility] Platelet mean volume (Bld) [Entitic vol] 9.0 fL 9.0 - 12.7 fL [facility] Platelets (Bld) [#/Vol] 149 10*3/uL Low 150 - 400 k/uL [facility] RBC (Bld) [#/Vol] 3.36 10*6/uL Low 3.90 - 5.2 0 m/uL [facility] WBC (Bld) [#/Vol] 4.51 10*3/uL 3.70 - 11. 00 k/uL [facility] CBC W Auto Differential pane l (Bld)on 02-13-2022 Abs Immature Gran <0.03 <0.10 k/uL [facility] Basophils (Bld) [#/Vol] 10*3/uL <0.11 k/uL [facility] Basophils/100 WBC (Bld) 0.2 % [facility] Differential cell count method Nom (Bld) Auto [facility] Eosinophils (Bld) [#/Vol] 0.06 10*3/uL <0.46 k/uL [facility] Eosinophils/100 WBC (Bld) 1.2 % [facility] Erythrocyte distribution width (RBC) [Ratio] 13.1 % 11.5 - 15.0 % [facility] Hematocrit (Bld) [Volume fraction] 30.6 % Low 36.0 - 46.0 % [facility] Hemoglobin (Bld) [Mass/Vol] 10.3 g/dL Low 11.5 - 15.5 g/dL [facility] Immature Gran % 0.2 % [facility] Lymphocytes (Bld) [#/Vol] 1.32 10*3/uL 1.00 - 4.00 k/uL [facility] Lymphocytes/100 WBC (Bld) 27.2 % [facility] MCH (RBC) [Entitic mass] 30.1 pg 26.0 - 34.0 pg [facility] MCHC (RBC) [Mass/Vol] 33.7 g/dL 30.5 - 36.0 g/dL [facility] MCV (RBC) [Entitic vol] 89.5 fL 80.0 - 100.0 fL [facility] Monocytes (Bld) [#/Vol] 0.50 10*3/uL <0.87 k/uL [facility] Monocytes/100 WBC (Bld) 10.3 % [facility] Neutrophils (Bld) [#/Vol] 2.96 10*3/uL 1.45 - 7.50 k/uL [facility] Neutrophils/100 WBC (Bld) 60.9 % [facility] Nucleated RBC (Bld) [#/Vol] 10*3/uL <0.01 k/uL [facility] Nucleated RBC/100 WBC (Bld) [Ratio] 0.0 /100 WBC [facility] Platelet mean volume (Bld) [Entitic vol] 10.0 fL 9.0 - 12.7 fL [facility] Platelets (Bld) [#/Vol] 144 10*3/uL Low 150 - 400 k/uL [facility] RBC (Bld) [#/Vol] 3.42 10*6/uL Low 3.90 - 5.2 0 m/uL [facility] WBC (Bld) [#/Vol] 4.86 10*3/uL 3.70 - 11. 00 k/uL [facility] Renal function 2000 panelon 02-13-2022 Albumin [Mass/Vol] 4.6 g/dL 3.9 - 4.9 g/dL [facility] Anion gap [Moles/Vol] 7 mmol/L Low 9 - 18 mmol/L [facility] Calcium [Mass/Vol] 9.3 mg/dL 8.5 - 10. 2 mg/dL [facility] Chloride [Moles/Vol] 109 mmol/L High 97 - 10 5 mmol/L [facility] CO2 [Moles/Vol] 23 mmol/L 22 - 30 mmol/L [facility] Creatinine [Mass/Vol] 1.60 mg/dL High 0.58 - 0.96 mg/dL [facility] Estimated Glomerular Filtration Rate 40 mL/min/1.73m Low >=60 mL/min/1.73m [facility] Glucose [Mass/Vol] 103 mg/dL High 74 - 99 mg/dL [facility] Phosphate [Mass/Vol] 3.3 mg/dL 2.7 - 4 .8 mg/dL [facility] Potassium [Moles/Vol] 4.2 mmol/L 3.7 - 5.1 mmol/L [facility] Sodium [Moles/Vol] 139 mmol/L 136 - 144 mmol/L [facility] Urea nitrogen [Mass/Vol] 45 mg/dL High 7 - 21 mg/dL [facility] HPVon 03-27-2021 HPV Interp Normal See Interp HPVN [facility] [place] Comment on above: Order Comment: Order placed by AP_HPV_ORDER rule from [id number] Result Comment: High Risk HPV Typing: NEGATIVE HPV types 16, 18, 31, 33, 35, 39, 45, 51, 52, 56, 58, 59, 66 and 68 DNA were undetectable or below the pre-set threshold. The anton High-Risk HPV DNA Test is not intended for use as a screening device for Pap normal women under age 30 and is not intended to substitute for regular Pap screening. The [place] High-Risk HPV DNA Test is designed to augment existing methods for the detection of cervical disease and should be used in conjunction with clinical information derived from other diagnostic and screening tests, physical examinations and full medical history in accordance with appropriate patient management procedures. NOTE: A negative result does not preclude the presence of HPV infection because results depend on adequate specimen collection, absence of inhibitors and sufficient DNA to be detected. See Inter HPVN Performed By: #### H PV #### [place] [address] HPV Source Cervix Normal [facility] ([place] Comment on above: Order Comment: Order placed by AP_HPV_ORDER rule from [id number] Performed By: #### H PV #### [place] [address] Senior Mobile Developer Cytology Reporton 2020 Senior Mobile Developer Cytology Report . 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 Electronically Signed by Pathology report verified by [facility]. Screened by: KK Electronically signed by Alem RUSHING (ASC) Sign-Out Date: 03/25/2021 11:02 Performing Lab: [facility], [address] [place] [address] Disclaimer The Pap test is a screening test for cervical cancer. As evidenced by published data, it is subject to both inherent false negative and false positive results. Your patient's results should be interpreted in context with pertinent clinical history including gynecological examination. Normal [facility] ([place]) Comment on above: Performed By: #### G YCR #### [place] [address] CNDSon 12-03-2018 CNDS HNO ID: [id number] Author: Natali Fleming Service: Orthopaedic Surgery Author Type: Resident Type: Discharge Summaries Filed: 12/05/2018 5:24 PM Note Text: The [place] [phone] or [phone]) [facility] N F I D E N T I A L I N F O R M A T I O N ORTHOPAEDIC DISCHARGE SUMMARY Patient Name: Ashok Sauceda Patient Admission Date: 12/02/2018 Discharge Date: 12/03/2018 Attending Physician: Gallito Charles Principal Diagnosis/Reason for Hospitalization: OA (osteoarthritis) of knee [M17.10] Secondary Diagnoses: Patient Active Hospital Problem List: OA (osteoarthritis) of knee (11/22/2018) Operations During Hospitalization: Procedure(s) and Anesthesia Type: * ARTHROSCOPY KNEE ARTICULAR CARTILAGE SHAVING OR DEBRIDEMENT - General * ARTHROPLASTY KNEE CONDYLE AND PLATEAU MEDIAL OR LATERAL - General Hospital Course: Please see perioperative HANDP for complete pre-admission details. The patient arrived at [facility] on 12/02/2018 where they were taken to the operating room for left lateral femoral condyle resurfacing. Please see operative note from that date for complete procedure details. The procedure went without complication and the patient was taken from the OR to the PACU followed by the RNF in stable condition. Once on the floor, their vital signs, pain, medication administration, and activity were all closely monitored and well controlled. Physical therapy, occupational therapy, and case management were consulted for in-house therapy and discharge planning. The patient worked with physical therapy who recommended they be discharged to home. The patient was seen and examined multiple times each day and continued to improve on a daily basis. The wound was examined and dressing was clean/dry/intact until day of discharge. The patient tolerated oral intake well and pain was well controlled on PO medications. The patient was prepared for discharge and this was arranged with case management. The patient was then discharged to home in stable condition. Hemodynamics: Patient was hemodynamically stable postoperatively. Relevant labs included: Hemoglobin (g/dL) Date Value 09/22/2018 10.4 (L) Hematocrit (%) Date Value 09/22/2018 33.1 (L) DVT Status: Patient had no signs/symptoms of DVT, so no ultrasound was done during hospital course. DVT Prophylaxis: Mobilization and aspirin Consults during hospital stay: Case management was consulted during hospital course for appropriate discharge planning for patient. Patient Condition at Discharge: Stable Discharge Disposition: Home Information Provided to the Patient: Patient given copy of Discharge Instructions DIET: No restrictions ACTIVITY: Weight bearing: full weight bearing after 48 hours non-weight bearing Discharge Medications: Discharge Medication List as of 12/03/2018 11:15 AM START taking these medications oxyCODONE IR (ROXICODONE) 5 mg immediate release tablet Take 1-2 tablets by mouth every 4 hours as needed for up to 7 days.Print RX, Disp-40 tablet, R-0Patient underwent a procedure, which is considered Major Orthopedic Surgery and is exempt from the new law regarding narcotic prescription quantity limita tions.Dx: 1. Acute post-operative pain acetaminophen (TYLENOL EXTRA STRENGTH) 500 mg tablet Take two tablets by mouth EVERY EIGHT hours as needed PRN for pain, do not exceed this dosePrint RX, Disp-30 tablet, R-0Dx: 1. Acute post-operative pain docusate sodium (COLACE) 100 mg capsule Take 1 capsule by mouth twice daily as needed for Constipation (take while taking narcotic pain medication).Print RX, Disp-60 capsule, R-0 aspirin 325 mg tablet One tablet by mouth every day for the first 14 days after surgery-THEN DISCONTINUEPrint RX, Disp-14 tablet, R-0, Long-term CONTINUE these medications which have NOT CHANGED tacrolimus (PROGRAF) 1 mg capsule TAKE 2 MG IN THE AM, 3MG IN THE PM ON 12 HOUR SCHEDULE. ICD-10: Z94.0Normal, Disp-270 capsule, R-3, Long-term furosemide (LASIX) 20 mg tablet TAKE 1 TABLET NEEDED FOR EDEMANormal, Disp-90 tablet, R-2, Long-term carvedilol (COREG) 12.5 mg tablet Take 1 tablet by mouth twice daily.Med Update, Disp-360 tablet, R-3, Long-term amLODIPine (NORVASC) 5 mg tablet TAKE 1 TABLET DAILYNormal, Disp-90 tablet, R-3, Long-term mycophenolate mofetil (CELLCEPT) 250 mg capsule TAKE 2 CAPSULES BY MOUTH TWICE DAILY. Z94.0Normal, Disp-360 capsule, R-3, Long-term simvastatin (ZOCOR) 20 mg tablet TAKE 1 TABLET DAILYNormal, Disp-90 tablet, R-2, Long-term famotidine (PEPCID) 20 mg tablet TAKE 2 TABLETS TWICE A DAYNormal, Disp-360 tablet, R-3 levothyroxine (SYNTHROID) 50 mcg tablet TAKE 1 TABLET DAILYNormal, Disp-90 tablet, R-3, Long-term predniSONE (DELTASONE) 10 mg tablet TAKE DIRECTEDNormal, Disp-60 tablet, R-3 DARBEPOETIN IRLANDA IN ALBUMN ODELL (ARANESP INJECTION) by INJECTION(UNSPECIFIED PARENTERAL ROUTES) route.Historical Med !! 0.9 % SODIUM CHLORIDE (0.9% NACL) Access implanted vascular access device (IVAD) as needed for flush, blood draw or treatment. Flush IVAD with 10-20 mL NS every 4 weeks and PRN when IVAD not in use.In Office, Disp-2 Syringe, R-50 heparin 100 unit/mL injection Access implanted vascular access device (IVAD) as needed for flush, blood draw or treatment. Before de-accessing port, flush with 10-20ml normal saline and follow with 5 mL heparin (100 units/mL) (if no heparin allergy). De-access port on treatment comp letion.In Office, Disp-5 mL, R-100 Amoxicillin 500 mg tablet Take four (4) tablets one hour before dental procedure.Normal, Disp-4 tablet, R-3 allopurinol (ZYLOPRIM) 100 mg tablet Take 2 tablets by mouth once daily.Med Update, Disp-60 tablet, R-0 !! 0.9% NaCl Access implanted vascular access device (IVAD) as needed for flush, blood draw or treatment. Flush IVAD with 10-20 mL NS every 4 weeks and PRN when IVAD not in use.In Office, Disp-2 Syringe, R-50 !! heparin 100 unit/mL syrg Access implanted vascular access device (IVAD) as needed for flush, blood draw or treatment. Before de-accessing port, flush with 10-20ml normal saline and follow with 5 mL heparin (100 units/mL) (if no heparin allergy). De-access port on treatment comp letion.In Office, Disp-1 Syringe, R-50 Biotin 10,000 mcg cap Take 1 capsule by mouth once daily.Historical Med !! heparin 100 unit/mL syrg NURSING USE ONLY: USE FOR IVAD ACCESS FLUSH. AMBULATORY/OUTPATINET : PLEASE REORDER UPON HOSPITAL DISCHARGE May access implanted vascular access device (IVAD) as needed for treatment. Before de-accessing port, flush with 10-20ml normal saline and fol low with 5 mL heparin (100 units/mL) (if no heparin allergy).Med Update, Disp-1 Syringe, R-100Dx: 1. End stage renal disease (HCC) 2. Need for prophylactic immunotherapy 3. Anemia in chronic kidney disease(285.21) 4. Kidney replaced by transplant 4. Ki dney replaced by transplant !! 0.9% NaCl NURSING USE ONLY: USED FOR IVAD ACCESS. AMBULATORY/OUTPATIENT : PLEASE REORDER UPON HOSPITAL DISCHARGE May access implanted vascular access device (IVAD) as needed for treatment. Flush IVAD with 10-20 mL NS every 4 weeks and PRN when IVAD not in u se.Med Update, Disp-1 Syringe, R-100Dx: 1. End stage renal disease (HCC) 2. Need for prophylactic immunotherapy 3. Anemia in chronic kidney disease(285.21) 4. Kidney replaced by transplant 4. Kidney replaced by transplant 5. Kidney replaced by transpla nt 5. Kidney replaced by transplant Ferrous Sulfate (IRON) 325 mg (65 mg iron) tablet Take 1 tablet by mouth twice daily.Med UpdateDx: 1. Acquired hemolytic anemia, unspecified 2. Encounter for long-term (current) use of high-risk medication !! - Potential duplicate medications found. Please discuss with provider. 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 Charles as scheduled Call office prn. Electronically SIGNED by Licensed Independent Practitioner: Natali Fleming MD Orthopaedic Surgery Resident Pager [phone] December 05, 2018 5:22 PM Please page [phone]) from 5p-6a and weekends for any issues. Orthopaedic and Rheumatologic [facility] [address] [place]. , A41 pager: [phone] [facility] NURSING PROGon 12-03-2018 Protein mass conc HNO ID: [id number] Author: Nancy (Rn) JOSH Guan Service: (none) Author Type: Registered Nurse Type: Nursing Progress Note Filed: 12/03/2018 5:07 PM Note Text: Nursing Progress Note Patient Name: Ashok Sauceda Patient Location: [id number]/[facility] 020* Daily Note:1336 Pt tearful at this time. Stating that she is in a lot of pain still. Stated that she wants to be honest and took another oxycodone 15 minutes after we gave her one because it didn't work. and patient concerned with patient going home with this much pain. Lisbet SCOW CAPTAIN ordered 2 [place] but d/c because pt will not be able to filled so d/c. Paged Kirill ESPINOSA. [phone] Kirill ESPINOSA returned page. Stated to page Fellow that rounded on pt this am. Paged Natali Fung. [phone] returned page. Paged Dr. Virk. [phone] [address] returned page. Paged Dr. Roy. This note was completed by: Nancy Guan RN [facility] Protein mass conc HNO ID: [id number] Author: Tamie Mehta) JAKY Hendrix Service: (none) Author Type: LICENSED NURSE Type: Nursing Progress Note Filed: 12/03/2018 3:22 PM Note Text: Nursing Progress Note Patient Name: Ashok Sauceda Patient Location: [id number]/* Daily Note:No reports of chest pain, s.o.b, [...] note was completed by: Tamie Hendrix LPN [facility] Protein mass conc HNO ID: [id number] Author: Lisa BarksdaleRn) JOSH Lim Service: (none) Author Type: Registered Nurse Type: Nursing Progress Note Filed: 12/03/2018 12:45 AM Note Text: Nursing Progress Note Patient Name: Ashok Sauceda Patient Location: [id number]/* 2100- Patient voicing better pain management with IV Dilaudid. Up to BSC with 1 assist, tolerated well. This note was completed by: Lisa Lim RN [facility] PROGRESSon 12-03-2018 Protein mass conc HNO ID: [id number] Author: Natali Fleming Service: Orthopaedic Surgery Author [...] (Oral) Resp 18 Ht 160 cm (5' 3 ) Wt 56.7 kg (125 lb) SpO2 97% [...] Natali Fleming MD Orthopaedic Surgery Resident PGY-4 [facility] THERAPY NTon 12-03-2018 THERAPY NT HNO ID: [id number] Author: Juliet (Pt) Landon Service: Physical Therapy Author Type: Physical Therapist Type: Therapy (PT/OT/Speech/Resp) Filed: 12/03/2018 12:36 PM Note Text: Physical Therapy Evaluation SERVICE DATE: 12/03/2018 SERVICE TIME: 1000 to 1038 ROOM: [place] [address] Recommended Discharge Disposition: Outpatient Physical Therapy (as deemed appropriate by ortho MD) Anticipated Discharge Needs: Physical Assist at Home Physical Assist at Home for: Cleaning;Laundry;Shop ping;Transportation Recommended Discharge Equipment: Wheeled Walker PT Recommendations [...] training and patient education to maximize functional [place] and safety for return to home with [...] Abnormalities of gait and mobility-other Interventions Provided: Evaluation;Therapeuti c Exercise (92147);Therapeutic Activity (49064);Gait Training (69356) $ Evaluation-Low (05792) Billed Units: 1 unit Therapeutic Exercise (12017) Treatment Minutes: 8 1 unit Skilled Intervention(s): Instruction in therapeutic exercise for antiembolic ex, performed AP, QS with 3 second hold and GS x 10 reps each. Verbal and tactile cuing provided for proper performance, also educated on addition of gentle ROM ex to knee after 48 hours. Issued written HEP for same Therapeutic Activity (79406) Treatment Minutes: 8 1 unit Skilled Intervention(s): [...] technique using Tech Back Method Gait Training (02649) Treatment Minutes: 7 Skilled Intervention(s): Instruction in [...] Environment Patient Lives With: Spouse Assistance Available: general engineering teacher (mother in law also available) Entry To [...] DATE: December 03, 2018 TIME: 12:29 PM [facility] ANES Primitivo 12-02-2018 ANES POST HNO ID: [id number] Author: Milagro Partida Service: Anesthesiology Author Type: [...] 02, 2018 TIME: 11:57 AM PAGER/CONTACT #: [phone] [facility] ANES PREOPon 12-02-2018 ANES PREOP HNO ID: [id number] Author: Samir Nagy Service: Anesthesiology Author Type: [...] Height as of 11/26/18: 160 cm (5' 3 ). Weight as of 11/26/18: 58.1 kg (128 [...] with some response in plts; then in fatigue/arthritis/fev ers/+NIYAH /low complements/alopecia/ Class III GN; led to dx of SLE, [...] 1 tablet by mouth twice daily. DARBEPOETIN IRLANDA IN ALBUMN ODLEL (ARANESP INJECTION) by INJECTION(UNSPECIFIED PARENTERAL ROUTES) route. [...] USE ONLY: USE FOR IVAD ACCESS FLUSH. AMBULATORY/OUTPATINET : PLEASE REORDER UPON HOSPITAL DISCHARGEMay access implanted vascular access device (IVAD) as needed for treatment. Before de-accessing port, flush with 10-20ml normal saline and follow with 5 mL heparin (100 units/mL) (if no heparin allergy). 0.9% NaCl NURSING USE ONLY: USED FOR IVAD ACCESS. AMBULATORY/OUTPATIENT : PLEASE REORDER UPON HOSPITAL DISCHARGE May access implanted vascular access device (IVAD) as needed for treatment.Flush IVAD with 10-20 mL NS every 4 weeks and PRN when IVAD not in use. Current Facility-Administered Medications: ceFAZolin iv piggyback 2 g in D5W (iso-osmotic) 100 mL (ANCEF) 2 g INTRAVENOUS Pre-Op Once Akiko Nash (Information Assurance Manager) [place] hydrocortisone sodium succinate (PF) 100 mg injection (Solu-CORTEF) 100 mg INTRAVENOUS ONCE Akiko Nash (Trudy) [place] Allergies: ALLERGIES Allergen Reactions - Sulfa [...] December 02, 2018 TIME: 6:42 AM CSN: [id number] [facility] BRIEF OP NOTon 12-02-2018 BRIEF OP NOT HNO ID: [id number] Author: Natali Fleming Service: Orthopaedic Surgery Author Type: Resident Type: Brief Op Note Filed: 12/02/2018 9:54 AM Note Text: BRIEF OP NOTE LOG ID: [id number] Surgery/Procedure Date: 12/02/2018 Incision/Procedure Start Time: 8:24 AM Incision Close/Procedure End Time: 9:53 AM Surgeon(s)/Procedural ist(s) and Triage Rn(s): Surgeon(s) and Role: * Gallito Charles - Primary * Natali (Roger Fleming - Resident - Assisting Procedure(s): left diagnostic arthroscopy, lateral femoral condyle resurfacing Anesthesia: General Findings: as expected Estimated Blood Loss: 1 mls Specimens: None Complications: None Pre-Op/Pre-Procedure Diagnosis: left knee OA Post-Op/Post-Procedur e Diagnosis: OA (osteoarthritis) of knee [M17.10] SIGNATURE: Natali Fleming MD PATIENT NAME: Ashok Sauceda DATE: December 02, 2018 TIME: 9:53 AM PAGER/CONTACT #: [facility] NURSING PROGon 12-02-2018 Protein mass conc HNO ID: [id number] Author: Nancy (Rn) Roge, RN Service: (none) Author Type: Registered Nurse Type: Nursing Progress Note Filed: 12/02/2018 7:13 PM Note Text: Nursing Progress Note Patient Name: Ashok Sauceda Patient Location: [place] [address] [address]20* Daily Note:1541 Pt attempting to go to [...] note was completed by: Nancy Guan RN [facility] Protein mass conc HNO ID: [id number] Author: Trey BarksdaleRn) JOSH Loza Service: (none) Author Type: Registered Nurse Type: Nursing Progress Note Filed: 12/02/2018 11:07 AM Note Text: Pt seen by Dr. Yamat postop, evaluate for pain block not needed at this time. Pt states relief from dilaudid and demerol iv. [facility] Protein mass conc HNO ID: [id number] Author: Josefina (Rn) JOSH Prakash Service: (none) Author Type: Registered Nurse Type: Nursing Progress Note Filed: 12/02/2018 6:10 AM Note Text: PRE OP LEARNING ASSESSMENT PROCEDURE/SURGERY: SURGERY: READINESS TO LEARN COGNITIVE ABILITY: Alert and oriented MOTIVATION TO LEARN: Eager FAMILY SUPPORT: None - Unavailable/disintere sted PATIENT LEARNS BEST BY: Individual Instruction FACTORS AFFECTING LEARNING: None PHYSICAL LIMITATIONS AFFECTING LEARNING: None Electronically Signed By: Josefina Prakash RN In Department: [facility] SURGERY Nursing Progress Note Patient Name: Ashok Sauceda Patient Location: Surgery/ Surgery Daily Note: This note was completed by: Josefina Prakash RN [facility] OPERATIVE NOon 12-02-2018 OPERATIVE NO HNO ID: [id number] Author: Gallito Charles Service: Orthopaedic Surgery Author Type: Physician Type: Operative Report Filed: 12/14/2018 7:03 AM Note Text: [facility] - Operative Report ASHOK SAUCEDA : 1975 AGE: 43. SEX: F PATIENT TYPE: A HOSP SVC: OROR LOCATION: [facility] ATTENDING PHYSICIAN: Gallito Charles MD CSN NUMBER: [id number] Surgery/Procedure Date: 12/02/2018 Incision/Procedure Start Time: 8:24 AM Incision Close/Procedure End Time: 9:54 AM Surgeon(s)/Procedural ist(s) and Triage Rn(s): Surgeon(s) and Role: * Gallito Charles - Primary * Natali (Saúl) Bernadette - Resident - Assisting Registered Nurse House Visitor: Akiko Benavides I was present for and performed or supervised all Critical portions of the procedure Gallito Charles MD PREOPERATIVE DIAGNOSIS: Avascular necrosis and loose bodies of left knee lateral femoral condyle. POSTOPERATIVE DIAGNOSIS: Avascular necrosis and loose bodies of left knee lateral femoral condyle. SURGEON: Gallito Charles MD SURGERY/PROCEDURE: Left knee arthroscopy, partial lateral meniscectomy, and then open lateral femoral compartment arthroplasty. PREOPERATIVE ASSESSMENT: The patient is seen again with ongoing problems in her left knee. She has a history of osteonecrosis of the lateral femoral condyle, has had multiple loose bodies removed, but continues to have symptomatic issues in that knee. Because of the ongoing problems, the fact that she has a large defect on the femoral condyle, we felt that at this point doing something surgically to fill the defect would be necessary to control her symptomatology. She continues to grind the lateral compartment and feels such and has been having symptomatology along the lateral joint line even after the surgical removal of her loose bodies. We discussed a variety of different treatment options including allograft and partial resurfacing. She understands my conflicts of interest with regard to the implant to be used, and we discussed this at length, and we felt that at this stage and with her history of osteonecrosis that she preferred to try implant at this time as opposed to some form of osteochondral grafting procedure, concerned about the healing and collapse of this event. She understood that the implant to be approved for use in the medial compartment and so, this was an off-label application for the implant. Understanding all these, the risks and complications of surgery, prognosis and personnel involved with the care, she decided to proceed with this surgery as outlined above. The patient was admitted to the [facility], [facility], admitted to the hospital and prepared for surgical procedure. She had an intravenous, intravenous antibiotics, and then the patient was taken to the operating room. DESCRIPTION OF PROCEDURE: In the operating room, after appropriate huddle and time-outs, the patient was given general anesthetic, supine position. Foot of the bed dropped. The left leg was then prepared in the usual manner. Sterile preparation with ChloraPrep, standard draping, and the patient had her foot placed in a foot holding hydraulic device. After full preparation, appropriate huddles and time-outs, pneumatic tourniquet inflated to 300 mmHg. We started with an anterolateral incision, but we wanted to arthroscope her knee first to evaluate the lateral compartment. If there is any other pathology that we were not detected, open to procedure for an arthroplasty, and this was done through the anterolateral portal. We did notice the anterior horn of the lateral meniscus was now torn, and there was further damage to the entire lateral meniscus, and I think that this was causing a lot of her symptomatology. Partial lateral meniscectomy was performed. No further pathology or loose bodies. We opened her lateral incision. Patellar tendon exposed. We released the lateral retinaculum and opened the joint, so that we could retract the patella medially and expose the lateral femoral condyle. Lateral femoral condyle demonstrated a very long 35-40 mm length defect on her weightbearing portion of her lateral femoral condyle, pretty much covering the entire weightbearing aspect of it. This was then measured and because the defect extended so far posteriorly, we had to use a curved implant which was a 3 x 10. The femoral condyle was prepared to accept an Arthrosurface UniCAP 3 x 10 implant. The implant was fixed in position with combination of screw fixation as well as bone cement. The knee was thoroughly irrigated, then taken through range of motion. Upon taken through range of motion, one could feel clunking sensation, which was not the patella, but it was rather coming from the lateral compartment. We re-arthroscoped this area, and a large 1-cm piece of bone cement could be visualized, and this was resected. The knee was then taken through range of motion, clunking sensation had been eliminated. The wounds were again thoroughly irrigated. Lateral retinaculum closed anatomically. Skin and subcutaneous tissue closed in usual manner. Bulky compressive dressing applied. The patient awakened and was taken to recovery room. ESTIMATED BLOOD LOSS: Minimal. COMPLICATIONS: None. IMPLANTS USED: Arthrosurface UniCAP 3 x 10 curvature implant. SPECIMENS: None. Gallito Charles MD AM:[id number] /[id number] cc: [facility] PT EDon 12-02-2018 PT ED HNO ID: [id number] Author: Trey Vigil (Rn) JOSH Loza Service: (none) Author Type: Registered Nurse Type: Patient Education Filed: 12/02/2018 11:44 AM Note Text: Transport pt to floor without incident. Bedside report given to Nancy, all belongings with family including glasses. Family update given in waiting room. [facility] XR KNEE 2V AP/LAT LTon 12-02 XR KNEE 2V AP/LAT LT * * *Final Report* * * DATE OF EXAM: Dec 02 2018 1:16PM MMFrantz [id number] - XR KNEE 2V AP/LAT LT [...] Suprapatellar and peripatellar soft tissue swelling with air-fluid levels compatible with recent surgery. The joint spaces are well-preserved. - IMPRESSION: Interval postsurgical changes as described. Ill-defined mixed, predominantly sclerotic region in the medullary portion of the distal femur compatible with infarcts; overall appears stable to slightly progressed in the interim. Cocoa Bean Cleaner: PSCB Transcribe Date/Time: Dec 02 2018 2:16P Dictated by : BRAYDON WHITESIDE MD This examination was interpreted and the report reviewed and electronically signed by: BRAYDON WHITESIDE MD on Dec 02 2018 2:21PM EST [id number] [facility] NURSING PROGon 12-01-2018 Protein mass conc HNO ID: [id number] Author: Abby (Rn) JOSH Barahona Service: (none) Author Type: Registered [...] Barahona RN December 01, 2018 9:44 AM [facility] HOSPon 11-22-2018 HOSP Patient:Jens Sauceda MRN: Height:5' 3 (1.6 m) Weight:128 lb (58.06 kg) Outpatient Medications as of 12/02/18: tacrolimus (PROGRAF) 1 mg capsule furosemide (LASIX) 20 mg tablet carvedilol (COREG) 12.5 mg tablet amLODIPine (NORVASC) 5 mg tablet mycophenolate mofetil (CELLCEPT) 250 mg capsule simvastatin (ZOCOR) 20 mg tablet famotidine (PEPCID) 20 mg tablet levothyroxine (SYNTHROID) 50 mcg tablet predniSONE (DELTASONE) 10 mg tablet DARBEPOETIN IRLANDA IN ALBUMN ODELL (ARANESP INJECTION) 0.9 % [...] Notes (ORTHOPAEDIC AND RHEUMATOLOGIC INST): [facility] 11/17/2018 11:39 AM Signed VM message left by ashok at 10:28am on 11/17/2018 stating message is for Akiko Nash - she is calling to schedule surgery for November. # [phone] Akiko Benavides, SMILEY.SALES FLOOR TEAM LEADER 11/19/2018 3:14 PM Signed Spoke to pt Need to coordinate in hospital setting In process, pt aware will update As soon as possible Akiko Benavides, SECURITIES CLERK.SALES FLOOR TEAM LEADER [facility] ANES Primitivo 09-17-2018 ANES POST HNO ID: [id number] Author: June Mcnamara Service: Anesthesiology Author Type: Anesthesiologist Type: Anesthesia PostOp Filed: 09/17/2018 11:01 AM Note Text: POST ANESTHESIA EVALUATION NOTE SERVICE DATE: 09/17/2018 SERVICE TIME: 11:01 AM : 1975 Vitals: 09/17/18 0620 09/17/18 0828 Temp: 36.2 ?C (97.2 ?F) 36.1 ?C (97 ?F) 09/17/18 0840 09/17/18 0855 09/17/18 0910 09/17/18 0925 BP: 114/78 126/79 125/83 116/78 09/17/18 0840 09/17/18 0855 09/17/18 0910 09/17/1825 Pulse: (!) 58 (!) 55 (!) 59 (!) 57 09/17/18 0840 09/17/18 0855 09/17/18 0910 09/17/1825 Resp: 16 10 12 12 09/17/18 0840 09/17/18 0855 09/17/18 0910 09/17/1825 SpO2: 98% 97% 99% 98% Validated Vital [...] 17, 2018 TIME: 11:01 AM PAGER/CONTACT #: [phone] [facility] ANES PREOPon 09-17-2018 ANES PREOP HNO ID: [id number] Author: June Mcnamara Service: Anesthesiology Author Type: [...] Height as of 09/07/18: 160 cm (5' 3 ). Weight as of 09/07/18: 59.6 kg (131 lb 8 oz). Most recent hematocrit and potassium results: Hematocrit 33.3 09/01/2018 Potassium 4.3 09/01/2018 ANES DOS/PREOP NOTE: Vitals: 09/17/18 06 BP: 156/98 Pulse: 69 Resp: 16 Temp: [...] with some response in plts; then in fatigue/arthritis/fev ers/+NIYAH /low complements/alopecia/ Class III GN; led to dx of SLE, [...] USE ONLY: USE FOR IVAD ACCESS FLUSH. AMBULATORY/OUTPATINET : PLEASE REORDER UPON HOSPITAL DISCHARGEMay access implanted vascular access device (IVAD) as needed for treatment. Before de-accessing port, flush with 10-20ml normal saline and follow with 5 mL heparin (100 units/mL) (if no heparin allergy). 0.9% NaCl NURSING USE ONLY: USED FOR IVAD ACCESS. AMBULATORY/OUTPATIENT : PLEASE REORDER UPON HOSPITAL DISCHARGE May access implanted vascular access device (IVAD) as needed for treatment.Flush IVAD with 10-20 mL NS every 4 weeks and PRN when IVAD not in use. Ferrous Sulfate (IRON) 325 mg (65 mg iron) tablet Take 1 tablet by mouth twice daily. DARBEPOETIN IRLANDA IN ALBUMN ODELL (ARANESP INJECTION) by INJECTION(UNSPECIFIED PARENTERAL ROUTES) route. Amoxicillin 500 mg tablet Take four (4) tablets one hour before dental procedure. Biotin 10,000 mcg cap Take 1 capsule by mouth once daily. Current Facility-Administered Medications: lactated ringers infusion 5-30 mL/hr INTRAVENOUS CONTINUOUS Akiko Benavides ceFAZolin iv piggyback 2 g in D5W (iso-osmotic) 100 mL (ANCEF) 2 g INTRAVENOUS Pre-Op Once Akiko Craig) Kennedy acetaminophen 1,000 mg tab(s) (TYLENOL) 1,000 mg ORAL Pre-Op Once June Mcnamara Allergies: ALLERGIES Allergen Reactions - Sulfa (Sulfonamide [...] SIGNATURE: June Mcnamara MD PATIENT NAME: Ashok Yehlabach DATE: September 17, 2018 TIME: 6:33 AM CSN: [id number] [facility] BRIEF OP NOTon 09-17-2018 BRIEF OP NOT HNO ID: [id number] Author: Miky Whyte Service: Orthopaedic Surgery Author Type: Fellow Type: Brief Op Note Filed: 09/17/2018 8:32 AM Note Text: BRIEF OP NOTE LOG ID: [id number] Surgery/Procedure Date: 09/17/2018 Incision/Procedure Start Time: 8:01 AM Incision Close/Procedure End Time: 8:22 AM Surgeon(s)/Procedural ist(s) and Triage Rn(s): Surgeon(s) and Role: * Gallito Charles - Primary * Miky Whyte - Resident - Assisting Procedure(s): Left knee arthroscopy with loose body removal, partial lateral meniscectomy and chondroplasty [facility] Anesthesia: General Findings: See op report Estimated Blood Loss: 0 ml Specimens: None Complications: None Pre-Op/Pre-Procedure Diagnosis: Left knee OA Post-Op/Post-Procedur e Diagnosis: Same, lateral meniscal tear SIGNATURE: Miky Whyte DO PATIENT NAME: Ashok Yehlabach DATE: September 17, 2018 TIME: 8:30 AM PAGER/CONTACT #: Beto [facility] OPERATIVE NOon 09-17-2018 OPERATIVE NO HNO ID: [id number] Author: Gallito Charles Service: Orthopaedic Surgery Author Type: Physician Type: Operative Report Filed: 09/21/2018 7:06 AM Note Text: [facility] - Operative Report ASHOK SAUCEDA : 1975 AGE: 42. SEX: F PATIENT TYPE: A HOSP SVC: OROR LOCATION: [facility] ATTENDING PHYSICIAN: Gallito Charles MD CSN NUMBER: [id number] DATE OF SURGERY/PROCEDURE: 09/17/2018 Surgery/Procedure Date: 09/17/2018 Incision/Procedure Start Time: 8:01 AM Incision Close/Procedure End Time: 8:22 AM Surgeon(s)/Procedural ist(s) and Triage Rn(s): Surgeon(s) and Role: * Gallito Charles - Primary * Miky Whyte - Resident - Assisting Tool Crib Manager: Huan Chan I was present for and performed or supervised all Critical portions of the procedure Gallito Charles MD PREOPERATIVE DIAGNOSIS: Osteochondritis dissecans, 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 POSTOPERATIVE DIAGNOSIS: 1. Osteonecrosis and loose bodies, left knee. 2. Lateral meniscus tear, left knee. SURGEON: Gallito Charles MD TRANSPORTATION WORKER: Miky Whyte MD. SURGERY/PROCEDURE: Left knee arthroscopy [...] condyle of her knee. Gallito Charles MD AM:[id number] /[id number] cc: [facility] PT EDon 09-17-2018 PT ED HNO ID: [id number] Author: Emilie BarksdaleRnTang Peters RN Service: (none) Author Type: Registered [...] Signed By: Emilie Peters RN In Department: [facility] SURGERY [facility] PT ED HNO ID: [id number] Author: Kana BarksdaleRnTang Blank RN Service: (none) Author Type: Registered Nurse [...] Signed By: Kana Blank RN In Department: [facility] SURGERY Normal [facility] HOSPon 09-16-2018 HOSP Patient Update (MMPRAD) ASHOK SAUCEDA ([id number]) 1975 F KDR Date Time Provider Department 09/16/18 AKIKO BENAVIDES (TRUDY) MMPRAD During your visit today, we recorded the following information about you: Akiko Benavides APRN.CNP 09/16/2018 6:20 PM Signed Spoke to TM, pharmacist at [facility] Reviewed case, calculated creatinine clearance to 42 [...] INVALID FOR*02/28/2015 Priority: Moderate More... DVT prophylaxis [ILO6604] INVALID FOR*02/28/2015 Priority: D More... Loose body in knee [M23.40] INVALID FOR* More... Osteonecrosis (HCC) [M87.9] INVALID FOR* More... Personal history of DVT (deep vein thrombosis) *INVALID FOR* Renal transplant recipient [Z94.0] INVALID FOR* Encounter Status:Closed by AKIKO BENAVIDES CNP on 09/16/18 [facility] PROGRESSon 09-16-2018 Protein mass conc HNO ID: [id number] Author: Akiko Nash (Trudy) Kennedy Service: (none) Author Type: Nurse Practitioner Type: Progress Notes Filed: 09/16/2018 6:20 PM Note Text: Spoke to TM, pharmacist at [facility] Reviewed case, calculated creatinine clearance to 42 Confirmed 2 gm Ancef 1 time dose preop Akiko Benavides APRN.TRUDY [facility] NURSING PROGon 09-09-2018 Protein mass conc HNO ID: [id number] Author: Nataliia BarksdaleRn) JOSH Sanchez Service: (none) Author Type: Registered [...] if these should occur Follow up PRN Christina Leonard DO Anesthesia Review: N/A Narrative: Lupus AOCD-HANDH (.9)-Aranesp prn Right chest port H/o carotid clot (2007)-vascular consult per ortho ESRD s/p kidney transplant (2006 AND 2011) on transplant meds (Cr 1.58/GFR 36) Pre-op Considerations: Mult notes throughout this encounter... Chart Check: COMPLETED Nataliia Sanchez RN September 09, 2018 1:16 PM [facility] HOSPon 08-24-2018 HOSP Patient:Jens Sauceda MRN: Height:5' 3 (1.6 m) Weight:131 lb 8 oz (59.648 kg) Outpatient Medications as of 09/17/18: furosemide (LASIX) 20 mg tablet tacrolimus (PROGRAF) 1 mg capsule carvedilol (COREG) 12.5 mg tablet amLODIPine (NORVASC) 5 mg tablet mycophenolate mofetil (CELLCEPT) 250 mg capsule simvastatin (ZOCOR) 20 mg tablet famotidine (PEPCID) 20 mg tablet levothyroxine (SYNTHROID) 50 mcg tablet predniSONE (DELTASONE) 10 mg tablet DARBEPOETIN IRLANDA IN ALBUMN ODELL (ARANESP INJECTION) 0.9 % [...] Low POTA* 4.3 mmol/L 09/01/2018 5.1 3.7 TEN* 33.3 % 09/01/2018 46.0 36.0 Progress Notes (MM PROVIDER ADULT): Akiko Benavides APRN.TRUDY 09/16/2018 6:20 PM Signed Spoke to TM, pharmacist at [facility] Reviewed case, calculated creatinine clearance to 42 Confirmed 2 gm Ancef 1 time dose preop Evelynsingh Benavides, SECURITIES CLERK.SALES FLOOR TEAM LEADER Progress Notes ([facility] MAIN): Christina Leonard, DO 09/07/2018 3:50 PM Signed [facility] Department of Cardiovascular Medicine SECTION OF VASCULAR MEDICINE OUTPATIENT VISIT DATE September 07, 2018 OUTPATIENT VISIT TYPE CONSULTATION Consult regarding: History of DVT, perioperative recommendations Consult requested by: Gallito Charles My final recommendations will be communicated back to the requesting physician by way of the shared medical record or by letter. Primary care physician: Nabila Gomez MD History of present illness: Ms. Sauceda [...] she had upper extremity venous duplex at [facility] (reports and images not available) that revealed [...] (DELTASONE) 10 mg tablet TAKE DIRECTED DARBEPOETIN IRLANDA IN ALBUMN ODELL (ARANESP INJECTION) by INJECTION(UNSPECIFIED [...] USE ONLY: USE FOR IVAD ACCESS FLUSH. AMBULATORY/OUTPATINET : PLEASE REORDER UPON HOSPITAL DISCHARGEMay access implanted vascular access device (IVAD) as needed for treatment. Before de-accessing port, flush with 10-20ml normal saline and follow with 5 mL heparin (100 units/mL) (if no heparin allergy). 0.9% NaCl NURSING USE ONLY: USED FOR IVAD ACCESS. AMBULATORY/OUTPATIENT : PLEASE REORDER UPON HOSPITAL DISCHARGE May access implanted vascular access device (IVAD) as needed for treatment.Flush IVAD with 10-20 mL NS every 4 weeks and PRN when IVAD not in use. Ferrous Sulfate (IRON) 325 mg (65 mg iron) tablet Take 1 tablet by mouth twice daily. Past medical history: has a past medical history of Acquired hemolytic anemia, unspecified (HCC); Acute rejection of kidney transplant (2006); Corpus [...] Bowel disease; Chronic obstructive pulmonary disease (COPD) (); Chronic renal insufficiency; Congestive heart failure (HCC); Myocardial infarct, old; Peripheral vascular disease (HCC); Personal history of unspecified urinary disorder; Seizures (HCC); or Stroke (HCC). Past surgical history: has a past surgical [...] Adult) Pulse 74 Ht 160 cm (5' 3 ) Wt 59.6 kg (131 lb 8 oz) [...] Abs Lymph 1.00 - 4.00 k/uL 1.34 [place]% % 11.7 Abs [place] <0.87 k/uL 0.37 [place]% % 1.3 Abs [...] Follow up SAMARA Leonard DO Previous Version Christina Leonard DO 09/07/2018 3:07 PM Signed -May have heparin injections twice a day if admitted -Early ambulation, stay hydrated -[facility] Vital Signs Date Time Vital Sign Value Performing Clinician Abi navarro 09-06-2024 09:45-0400 Body height 160 cm Clementina Silva APRN.CNP Work Phone: [facility] 09-06-2024 09:45-0400 Body mass index (BMI) [Ratio] 23.77 kg/m2 Clementina Silva APRN.CNP Work Phone: [facility] 09-06-2024 09:45-0400 Body temperature 97.81 [degF] Clementina Silva APRN.CNP Work Phone: [facility] 09-06-2024 09:45-0400 Body weight 60.87 kg Clementina Silva APRN.CNP Work Phone: [facility] 09-06-2024 09:45-0400 Diastolic blood pressure 101 mm[Hg] Clementina Silva APRN.CNP Work Phone: [facility] 09-06-2024 09:45-0400 Heart rate 79 /min Clementina Ricardo SECURITIES CLERK.SALES FLOOR TEAM LEADER Work Phone: [facility] 09-06-2024 09:45-0400 SaO2% (BldA) [Mass fraction] 100 % Clementina Ricardo SECURITIES CLERK.SALES FLOOR TEAM LEADER Work Phone: [facility] 09-06-2024 09:45-0400 Systolic blood pressure 155 mm[Hg] Clementina Ricardo SECURITIES CLERK.SALES FLOOR TEAM LEADER Work Phone: [facility] 09-01-2024 19:14-0400 Body mass index (BMI) [Ratio] 23.94 kg/m2 Odessa Fallon SECURITIES CLERK.SALES FLOOR TEAM LEADER Work Phone: [facility] 09-01-2024 19:14-0400 Body temperature 99 [degF] Odessa Hirschome SECURITIES CLERK.SALES FLOOR TEAM LEADER Work Phone: [facility] 09-01-2024 19:14-0400 Body weight 61.3 kg Odessa Hirschome SECURITIES CLERK.SALES FLOOR TEAM LEADER Work Phone: [facility] 09-01-2024 19:14-0400 Diastolic blood pressure 112 mm[Hg] Odessa Fallon SECURITIES CLERK.SALES FLOOR TEAM LEADER Work Phone: [facility] 09-01-2024 19:14-0400 Heart rate 71 /min Odessa Fallon SECURITIES CLERK.SALES FLOOR TEAM LEADER Work Phone: [facility] 09-01-2024 19:14-0400 Respiratory rate 20 /min Odessa Fallon SECURITIES CLERK.SALES FLOOR TEAM LEADER Work Phone: [facility] 09-01-2024 19:14-0400 SaO2% (BldA) [Mass fraction] 99 % Odessa Fallon SECURITIES CLERK.SALES FLOOR TEAM LEADER Work Phone: [facility] 09-01-2024 19:14-0400 Systolic blood pressure 180 mm[Hg] Odessa Terrence SECURITIES CLERK.SALES FLOOR TEAM LEADER Work Phone: [facility] 09-01-2024 11:23-0400 Body mass index (BMI) [Ratio] 23.74 kg/m2 Schuyler Masci DO Work Phone: [facility] 09-01-2024 11:23-0400 Body temperature 97.9 [degF] Schuyler Masci DO Work Phone: [facility] 09-01-2024 11:23-0400 Body weight 60.78 kg Schuyler Masci DO Work Phone: [facility] 09-01-2024 11:23-0400 Diastolic blood pressure 91 mm[Hg] Schuyler Masci DO Work Phone: [facility] 09-01-2024 11:23-0400 Heart rate 65 /min Schuyler Masci DO Work Phone: [facility] 09-01-2024 11:23-0400 SaO2% (BldA) [Mass fraction] 100 % Schuyler Crystali DO Work Phone: [facility] 09-01-2024 11:23-0400 Systolic blood pressure 148 mm[Hg] Schuyler Crystali DO Work Phone: [facility] 07-26-2024 11:12-0400 Body temperature 98.91 [degF] Injection Wstr Work Phone: [facility] 07-26-2024 11:12-0400 Diastolic blood pressure 102 mm[Hg] Injection Wstr Work Phone: [facility] 07-26-2024 11:12-0400 Heart rate 65 /min Injection Wstr Work Phone: [facility] 07-26-2024 11:12-0400 Respiratory rate 12 /min Injection Wstr Work Phone: [facility] 07-26-2024 11:12-0400 SaO2% (BldA) [Mass fraction] 100 % Injection Wstr Work Phone: [facility] 07-26-2024 11:12-0400 Systolic blood pressure 148 mm[Hg] Injection Wstr Work Phone: [facility] 07-26-2024 10:14-0400 Body mass index (BMI) [Ratio] 24.45 kg/m2 Lab/Port Wstr Work Phone: [facility] 07-26-2024 10:14-0400 Body weight 62.6 kg Lab/Port Wstr Work Phone: [facility] 06-28-2024 15:46-0400 Body mass index (BMI) [Ratio] 24.8 kg/m2 Injection Wstr Work Phone: [facility] 06-28-2024 15:46-0400 Body temperature 98.8 [degF] Injection Wstr Work Phone: [facility] 06-28-2024 15:46-0400 Body weight 63.5 kg Injection Wstr Work Phone: [facility] 06-28-2024 15:46-0400 Diastolic blood pressure 93 mm[Hg] Injection Wstr Work Phone: [facility] 06-28-2024 15:46-0400 Heart rate 67 /min Injection Wstr Work Phone: [facility] 06-28-2024 15:46-0400 Systolic blood pressure 152 mm[Hg] Injection Wstr Work Phone: [facility] 06-28-2024 09:40-0400 Body height 160 cm Edgardo Nguyen MD Work Phone: [facility] 06-28-2024 09:40-0400 Body mass index (BMI) [Ratio] 24.8 kg/m2 Edgardo Nguyen MD Work Phone: [facility] 06-28-2024 09:40-0400 Body weight 63.5 kg Edgardo Nguyen MD Work Phone: [facility] 06-28-2024 09:40-0400 Diastolic blood pressure 90 mm[Hg] Edgardo Nguyen MD Work Phone: [facility] 06-28-2024 09:40-0400 Heart rate 75 /min Edgardo Nguyen MD Work Phone: [facility] 06-28-2024 09:40-0400 Systolic blood pressure 144 mm[Hg] Edgardo Nguyen MD Work Phone: [facility] 06-14-2024 10:36-0400 Body mass index (BMI) [Ratio] 25.33 kg/m2 Injection Wstr Work Phone: [facility] 06-14-2024 10:36-0400 Body weight 64.86 kg Injection Wstr Work Phone: [facility] 06-14-2024 10:36-0400 Diastolic blood pressure 96 mm[Hg] Injection Wstr Work Phone: [facility] 06-14-2024 10:36-0400 Heart rate 68 /min Injection Wstr Work Phone: [facility] 06-14-2024 10:36-0400 Respiratory rate 12 /min Injection Wstr Work Phone: [facility] 06-14-2024 10:36-0400 SaO2% (BldA) [Mass fraction] 100 % Injection Wstr Work Phone: [facility] 06-14-2024 10:36-0400 Systolic blood pressure 151 mm[Hg] Injection Wstr Work Phone: [facility] 05-03-2024 09:32-0400 Body mass index (BMI) [Ratio] 24.98 kg/m2 Injection Wstr Work Phone: [facility] 05-03-2024 09:32-0400 Body temperature 98.8 [degF] Injection Wstr Work Phone: [facility] 05-03-2024 09:32-0400 Body weight 63.96 kg Injection Wstr Work Phone: [facility] 05-03-2024 09:32-0400 Diastolic blood pressure 87 mm[Hg] Injection Wstr Work Phone: [facility] 05-03-2024 09:32-0400 Heart rate 71 /min Injection Wstr Work Phone: [facility] 05-03-2024 09:32-0400 SaO2% (BldA) [Mass fraction] 96 % Injection Wstr Work Phone: [facility] 05-03-2024 09:32-0400 Systolic blood pressure 142 mm[Hg] Injection Wstr Work Phone: [facility] 03-15-2024 12:31-0400 Body mass index (BMI) [Ratio] 25.38 kg/m2 Rylie Bear SECURITIES CLERK.SALES FLOOR TEAM LEADER Work Phone: [facility] 03-15-2024 12:31-0400 Body temperature 98.01 [degF] Rylie Bear SECURITIES CLERK.SALES FLOOR TEAM LEADER Work Phone: [facility] 03-15-2024 12:31-0400 Body weight 65 kg Rylie Bear SECURITIES CLERK.SALES FLOOR TEAM LEADER Work Phone: [facility] 03-15-2024 12:31-0400 Diastolic blood pressure 98 mm[Hg] Rylie Bear SECURITIES CLERK.SALES FLOOR TEAM LEADER Work Phone: [facility] 03-15-2024 12:31-0400 Heart rate 66 /min Rylie Bear SECURITIES CLERK.SALES FLOOR TEAM LEADER Work Phone: [facility] 03-15-2024 12:31-0400 Respiratory rate 18 /min Rylie Bear SECURITIES CLERK.SALES FLOOR TEAM LEADER Work Phone: [facility] 03-15-2024 12:31-0400 SaO2% (BldA) [Mass fraction] 100 % Rylie Bear SECURITIES CLERK.SALES FLOOR TEAM LEADER Work Phone: [facility] 03-15-2024 12:31-0400 Systolic blood pressure 153 mm[Hg] Rylie Bear SECURITIES CLERK.SALES FLOOR TEAM LEADER Work Phone: [facility] 02-23-2024 09:43-0400 Body temperature 98.71 [degF] Injection Wstr Work Phone: [facility] 02-23-2024 09:43-0400 Diastolic blood pressure 97 mm[Hg] Injection Wstr Work Phone: [facility] 02-23-2024 09:43-0400 Heart rate 68 /min Injection Wstr Work Phone: [facility] 02-23-2024 09:43-0400 Respiratory rate 12 /min Injection Wstr Work Phone: [facility] 02-23-2024 09:43-0400 SaO2% (BldA) [Mass fraction] 100 % Injection Wstr Work Phone: [facility] 02-23-2024 09:43-0400 Systolic blood pressure 144 mm[Hg] Injection Wstr Work Phone: [facility] 01-13-2024 09:24-0500 Body temperature 97.9 [degF] Rylie Bear SECURITIES CLERK.SALES FLOOR TEAM LEADER Work Phone: [facility] 01-13-2024 09:24-0500 Body weight 64.41 kg Rylie Bear SECURITIES CLERK.SALES FLOOR TEAM LEADER Work Phone: [facility] 01-13-2024 09:24-0500 Diastolic blood pressure 88 mm[Hg] Rylie Bear SECURITIES CLERK.SALES FLOOR TEAM LEADER Work Phone: [facility] 01-13-2024 09:24-0500 Heart rate 80 /min Rylie Bear SECURITIES CLERK.SALES FLOOR TEAM LEADER Work Phone: [facility] 01-13-2024 09:24-0500 Respiratory rate 16 /min Rylie Bear SECURITIES CLERK.SALES FLOOR TEAM LEADER Work Phone: [facility] 01-13-2024 09:24-0500 SaO2% (BldA) [Mass fraction] 100 % Rylie Bear SECURITIES CLERK.SALES FLOOR TEAM LEADER Work Phone: [facility] 01-13-2024 09:24-0500 Systolic blood pressure 142 mm[Hg] Rylie Bear SECURITIES CLERK.SALES FLOOR TEAM LEADER Work Phone: [facility] 01-12-2024 10:22-0500 Diastolic blood pressure 78 mm[Hg] Injection Wstr Work Phone: [facility] 01-12-2024 10:22-0500 Systolic blood pressure 171 mm[Hg] Injection Wstr Work Phone: [facility] 01-12-2024 10:16-0500 Body temperature 98.4 [degF] Injection Wstr Work Phone: [facility] 01-12-2024 10:16-0500 Body weight 65.32 kg Injection Wstr Work Phone: [facility] 01-12-2024 10:16-0500 Heart rate 67 /min Injection Wstr Work Phone: [facility] 01-12-2024 10:16-0500 Respiratory rate 12 /min Injection Wstr Work Phone: [facility] 01-12-2024 10:16-0500 SaO2% (BldA) [Mass fraction] 100 % Injection Wstr Work Phone: [facility] 12-29-2023 11:20-0500 Body height 160 cm Edgardo Nguyen MD Work Phone: [facility] 12-29-2023 11:20-0500 Body temperature 98.91 [degF] Edgardo Nguyen MD Work Phone: [facility] 12-29-2023 11:20-0500 Body weight 65.1 kg Edgardo Nguyen MD Work Phone: [facility] 12-29-2023 11:20-0500 Diastolic blood pressure 87 mm[Hg] Edgardo Nguyen MD Work Phone: [facility] 12-29-2023 11:20-0500 Heart rate 79 /min Edgardo Nguyen MD Work Phone: [facility] 12-29-2023 11:20-0500 Systolic blood pressure 129 mm[Hg] Edgardo Nguyen MD Work Phone: [facility] 04-29-2023 10:13-0400 Body height 160 cm Dk Hawk DO Work Phone: [facility] 04-29-2023 10:130400 Body weight 59.88 kg Dk Hawk DO Work Phone: [facility] 04-29-2023 10:130400 Diastolic blood pressure 70 mm[Hg] Dk Hawk DO Work Phone: [facility] 04-29-2023 10:13-0400 Heart rate 78 /min Dk Hawk DO Work Phone: [facility] 04-29-2023 10:13-0400 Respiratory rate 16 /min Dk Hawk DO Work Phone: [facility] 04-29-2023 10:13-0400 Systolic blood pressure 124 mm[Hg] Dk Hawk DO Work Phone: [facility] 12-11-2022 11:30-0500 Body temperature 98.1 [degF] Juani Athy PA-C Work Phone: [facility] 12-11-2022 11:30-0500 Body weight 61.69 kg Juani Athy PA-C Work Phone: [facility] 12-11-2022 11:30-0500 Diastolic blood pressure 82 mm[Hg] Juani Athy PA-C Work Phone: [facility] 12-11-2022 11:30-0500 Heart rate 75 /min Juani Athy PA-C Work Phone: [facility] 12-11-2022 11:30-0500 Respiratory rate 21 /min Juani Athy PA-C Work Phone: [facility] 12-11-2022 11:30-0500 SaO2% (BldA) [Mass fraction] 100 % Juani Athy PA-C Work Phone: [facility] 12-11-2022 11:30-0500 Systolic blood pressure 122 mm[Hg] Juani Athy PA-C Work Phone: [facility] 03-13-2022 09:42-0400 Body weight 64.86 kg Lab/Port Wstr Work Phone: [facility] Encounters Encounter Date Encounter Type Care Provider Facility Start: 09-06-2024 End: 09-06-2024 ambulatory Lab/Port [facility] Work Phone: Hematology/Oncology Comment on above: 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); Kidney replaced by transplant; Immunosuppressive management encounter following kidney transplant 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) (Primary Dx) Start: 09-06-2024 End: 09-06-2024 ambulatory NABILA GOMEZ Facility:[facility] Start: 09-06-2024 End: 09-06-2024 Patient encounter procedure Clementina Silva SMILEY.SALES FLOOR TEAM LEADER Work Phone: General Surgery Comment on above: Screen for colon can cer (Primary Dx); Kidney replaced by transplant 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) (Primary Dx) Start: 09-01-2024 End: 09-01-2024 ambulatory NABILA GMOEZ Facility:[facility] Start: 09-01-2024 End: 09-01-2024 Patient encounter procedure Odessa Ocampo APRN.SALES FLOOR TEAM LEADER [facility] Comment on above: Viral URI with cough (Primary Dx) Start: 09-01-2024 End: 09-01-2024 Patient encounter procedure Schuyler Abrams DO Work Phone: Hematology/Oncology Start: 09-01-2024 End: 09-01-2024 ambulatory Schuyler Abrams DO Work Phone: Hematology/Oncology Comment on above: 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) (Primary Dx); Encounter for screening colonoscopy Start: 08-23-2024 End: 08-23-2024 ambulatory Injection [facility] Work Phone: Hematology/Oncology Comment on above: 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) (Primary Dx) Kidney replaced by t ransplant; Immunosuppressive management encounter following kidney transplant Start: 08-09-2024 End: 08-09-2024 ambulatory Lab/Port [facility] Work Phone: Hematology/Oncology Comment on above: End stage renal dise ase (HCC) (Primary Dx); Kidney replaced by transplant; Immunosuppressive management encounter following kidney transplant 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) (Primary Dx) Start: 08-03-2024 End: 08-03-2024 Orders Only Edgardo Nguyen MD Work Phone: [facility] Comment on above: Kidney replaced by t ransplant (Primary Dx) Start: 07-26-2024 End: 08-04-2024 Telephone encounter Schuyler Abrams DO Work Phone: Hematology/Oncology Comment on above: Appointment Start: 07-26-2024 End: 07-26-2024 ambulatory Lab/Port [facility] Work Phone: Hematology/Oncology Comment on above: 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); Kidney replaced by transplant; Immunosuppressive management encounter following kidney transplant Anemia in chronic ki dney disease, unspecified CKD stage (Primary Dx); Chronic kidney disease, stage 4 (severe) (HCC) Start: 07-14-2024 End: 07-14-2024 ambulatory Injection [facility] Work Phone: Hematology/Oncology Comment on above: 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) (Primary Dx) Kidney replaced by t ransplant; Immunosuppressive management encounter following kidney transplant; Anemia in stage 4 chronic kidney disease (HCC) (HCC) Start: 06-28-2024 End: 06-28-2024 ambulatory Lab/Port [facility] Work Phone: Hematology/Oncology Comment on above: 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); Kidney replaced by transplant; Immunosuppressive management encounter following kidney transplant; Hyperuricemia; Gout with manifestations Anemia in chronic ki dney disease, unspecified CKD stage (Primary Dx); Chronic kidney disease, stage 4 (severe) (HCC) Start: 06-28-2024 Telephone encounter Schuyler scott DO Work Phone: Hematology/Oncology Comment on above: Results Start: 06-28-2024 End: 06-28-2024 Patient encounter procedure Edgardo Nguyen MD Work Phone: [facility] [place] Comment on above: Hyperuricemia (Prima ry Dx); Gout with manifestations; Kidney replaced by transplant; Immunosuppressive management encounter following kidney transplant Start: 06-14-2024 End: 06-14-2024 ambulatory Lab/Port [facility] Work Phone: Hematology/Oncology Comment on above: Chronic kidney disea se, stage 4 (severe) (HCC) (Primary Dx); Anemia in stage 4 chronic kidney disease (HCC) (HCC); Kidney replaced by transplant; Immunosuppressive management encounter following kidney transplant Anemia in chronic ki dney disease, unspecified CKD stage (Primary Dx); Chronic kidney disease, stage 4 (severe) (HCC) Start: 05-31-2024 End: 05-31-2024 ambulatory Injection [facility] Work Phone: Hematology/Oncology Comment on above: Chronic kidney disea se, stage 4 (severe) (HCC) (Primary Dx) Chronic kidney disea se, stage 4 (severe) (HCC) (Primary Dx); Aftercare following organ transplant; Status post kidney transplant; Therapeutic drug monitoring; Long-term use of immunosuppressant medication; Vitamin D deficiency; Secondary hypothyroidism; BK viremia Kidney replaced by t ransplant (Primary Dx); Immunosuppressive management encounter following kidney transplant Start: 05-03-2024 End: 05-03-2024 [facility] Work Phone: H[facility]On[facility] Comment on above: Chronic kidney disea se, stage 4 (severe) (HCC) (Primary Dx); Other specified hypothyroidism; Aftercare following organ transplant; Status post kidney transplant; Therapeutic drug monitoring; Long-term use of immunosuppressant medication; Vitamin D deficiency; Secondary hypothyroidism; BK viremia Anemia in chronic ki dney disease, unspecified CKD stage (Primary Dx); Chronic kidney disease, stage 4 (severe) (HCC) Start: 04-05-2024 End: 04-05-2024 ambulatory Lab/Port [facility] Work Phone: Hematology/Oncology Comment on above: Aftercare following organ transplant; Status post kidney transplant; Therapeutic drug monitoring; Long-term use of immunosuppressant medication; Vitamin D deficiency; Secondary hypothyroidism; BK viremia Chronic kidney disea se, stage 4 (severe) (HCC) (Primary Dx); Anemia in stage 4 chronic kidney disease (HCC) (HCC) Start: 03-22-2024 End: 03-22-2024 ambulatory Lab/Port [facility] Work Phone: Hematology/Oncology Comment on above: Aftercare following organ transplant; Status post kidney transplant; Therapeutic drug monitoring; Long-term use of immunosuppressant medication; Vitamin D deficiency; Secondary hypothyroidism; 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) (Primary Dx) Start: 03-15-2024 End: 03-15-2024 ambulatory NABILA ELLIOTT ALEXAMARIS Facility:[facility] Start: 03-15-2024 End: 03-15-2024 Patient encounter procedure Rylie Bear APRN.[facility] Work Phone: [facility] Comment on above: Numerous skin moles (Primary Dx) Start: 03-09-2024 End: 03-09-2024 ambulatory Lab/Port [facility] Work Phone: Hematology/Oncology Comment on above: Aftercare following organ transplant; Status post kidney transplant; Therapeutic drug monitoring; Long-term use of immunosuppressant medication; Vitamin D deficiency; Secondary hypothyroidism; BK viremia; Anemia in stage 4 chronic kidney disease (HCC) (HCC) 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) (Primary Dx) Start: 02-23-2024 End: 02-23-2024 ambulatory Lab/Port [facility] Work Phone: Hematology/Oncology Comment on above: 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) (Primary Dx); Aftercare following organ transplant; Status post kidney transplant; Therapeutic drug monitoring; Long-term use of immunosuppressant medication; Vitamin D deficiency; Secondary hypothyroidism; BK viremia Anemia in chronic ki dney disease, unspecified CKD stage (Primary Dx) Start: 02-09-2024 End: 02-09-2024 ambulatory Lab/Port [facility] Work Phone: Hematology/Oncology Comment on above: Acquired hemolytic a nemia, unspecified (HCC) (Primary Dx); Anemia in stage 4 chronic kidney disease (HCC) (HCC); Aftercare following organ transplant; Status post kidney transplant; Therapeutic drug monitoring; Long-term use of immunosuppressant medication; Vitamin D deficiency; Secondary hypothyroidism; 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) (Primary Dx) Start: 02-08-2024 Orders Only Schuyler Moore Work Phone: Hematology/Oncology Comment on above: 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) (Primary Dx) Start: 01-27-2024 ambulatory Edgardo Nguyen MD Work Phone: Transplant Center Comment on above: results Start: 01-27-2024 E-mail encounter fro m caregiver Edgardo Nguyen MD Work Phone: [facility] Start: 01-26-2024 End: 01-26-2024 ambulatory Lab/Port [facility] Work Phone: Hematology/Oncology Comment on above: Aftercare following organ transplant; Status post kidney transplant; Therapeutic drug monitoring; Long-term use of immunosuppressant medication; Vitamin D deficiency; Secondary hypothyroidism; BK viremia Anemia in chronic ki dney disease, unspecified CKD stage (Primary Dx) Start: 01-13-2024 End: 01-13-2024 ambulatory NABILA GOMEZ Facility:[facility] Start: 01-13-2024 End: 01-13-2024 Patient encounter procedure Rylie Bear APRN.SALES FLOOR TEAM LEADER Work Phone: [facility] Comment on above: Rhinosinusitis (Prim neftali Dx) Start: 01-12-2024 End: 01-12-2024 ambulatory Injection [facility] Work Phone: Hematology/Oncology Comment on above: Anemia in chronic ki dney disease, unspecified CKD stage (Primary Dx) Start: 01-08-2024 End: 01-08-2024 ambulatory Lab/Port [facility] Work Phone: Hematology/Oncology Comment on above: 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) (Primary Dx) Start: 01-07-2024 Telephone encounter Schuyler scott DO Work Phone: Hematology/Oncology Start: 01-07-2024 End: 01-07-2024 ambulatory Lab/Port [facility] Work Phone: Hematology/Oncology Comment on above: 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) Start: 12-29-2023 End: 12-29-2023 ambulatory Edgardo Nguyen MD Work Phone: [facility] Start: 12-29-2023 End: 12-29-2023 Patient encounter procedure Edgardo Nguyen MD Work Phone: [facility] Comment on above: Kidney replaced by t ransplant (Primary Dx); Persistent proteinuria; Immunosuppressive management encounter following kidney transplant; 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) Start: 12-26-2023 Refill Edgardo Nguyen MD Work Phone: [facility] Comment on above: Refill Request Start: 11-26-2023 End: 11-26-2023 ambulatory JUANI RIVERA Facility:[facility] Start: 11-26-2023 End: 11-26-2023 ambulatory NABILA GOMEZ Facility:[facility] Start: 11-08-2023 End: 11-08-2023 ambulatory NABILA GOMEZ Facility:[facility] Start: 11-02-2023 Refill Antoinette villasenor APRN.CNP Work Phone: [facility] Comment on above: Refill Request Start: 10-22-2023 Refill Edgardo Nguyen MD Work Phone: [facility] Comment on above: Refill Request Start: 10-15-2023 End: 10-15-2023 ambulatory Injection [facility] Work Phone: Hematology/Oncology Comment on above: 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) Start: 09-08-2023 End: 09-08-2023 ambulatory Lab/Port [facility] Work Phone: Hematology/Oncology Comment on above: Acquired hemolytic a nemia, unspecified (HCC) (Primary Dx); Anemia in stage 4 chronic kidney disease (HCC) ; Aftercare following organ transplant; Status post kidney transplant; Therapeutic drug monitoring; Long-term use of immunosuppressant medication; Vitamin D deficiency; Secondary hypothyroidism; BK viremia Acquired hemolytic a nemia, unspecified (HCC) (Primary Dx) Start: 09-04-2023 Refill Elsa Berrios PA-C Work Phone: [facility] Comment on above: Refill Request Start: 09-03-2023 End: 09-03-2023 ambulatory Lab/Port [facility] Work Phone: Hematology/Oncology Comment on above: Aftercare following organ transplant; Status post kidney transplant; Therapeutic drug monitoring; Long-term use of immunosuppressant medication; Vitamin D deficiency; Secondary hypothyroidism; BK viremia Start: 07-27-2023 Refill Eliza Coello [facility] Comment on above: Rx Refills Start: 07-23-2023 End: 07-23-2023 ambulatory Lab/Port [facility] Work Phone: Hematology/Oncology Comment on above: 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); Aftercare following organ transplant; Status post kidney transplant; Therapeutic drug monitoring; Long-term use of immunosuppressant medication; Vitamin D deficiency; Secondary hypothyroidism; 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) Start: 06-11-2023 Telephone encounter Schuyler scott DO Work Phone: Hematology/Oncology Comment on above: Appointment Start: 06-10-2023 Orders Only Edgardo Nguyen MD Work Phone: [facility] Comment on above: Aftercare following organ transplant (Primary Dx); Status post kidney transplant; Therapeutic drug monitoring; Long-term use of immunosuppressant medication; Vitamin D deficiency; Secondary hypothyroidism; BK viremia Start: 06-03-2023 Telephone encounter Dk Hawk DO Work Phone: [facility] Comment on above: Patient Update (Miss ed appointment) Start: 04-29-2023 End: 04-29-2023 ambulatory NABILA GOMEZ Facility:[facility] Start: 04-29-2023 End: 04-29-2023 Patient encounter procedure Dk Hawk DO Work Phone: [facility] Comment on above: Renal transplant rec ipient (Primary Dx); Clotted dialysis access, initial encounter ([facility]) Start: 03-17-2023 End: 03-17-2023 ambulatory Lab/Port [facility] Work Phone: Hematology/Oncology Comment on above: 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); Kidney replaced by transplant; Immunosuppressive management encounter following kidney transplant Start: 03-11-2023 End: 03-12-2023 ambulatory DILIA MORALES MD Facility:[facility] Start: 03-11-2023 End: 03-11-2023 Patient encounter procedure DILIA MORALES MD [facility] Start: 03-09-2023 End: 03-10-2023 ambulatory NABILA GOMEZ MD Facility:[facility] Start: 03-09-2023 End: 03-09-2023 Patient encounter procedure DILIA MORALES MD [facility] Start: 02-13-2023 Refill Edgardo Nguyen MD Work Phone: [facility] Comment on above: Refill Request Start: 02-09-2023 End: 02-09-2023 ambulatory Lab/Port [facility] Work Phone: Hematology/Oncology Comment on above: Kidney replaced by t ransplant; Immunosuppressive management encounter following kidney transplant 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) HGB results Start: 02-09-2023 E-mail encounter solange Abrams DO Work Phone: [facility] Start: 12-25-2022 End: 12-25-2022 ambulatory Lab/Port [facility]-channel[facility] Work Phone: Hematology/Oncology Comment on above: Anemia of chronic re nal failure, unspecified CKD stage (Primary Dx); Kidney replaced by transplant; Immunosuppressive management encounter following kidney transplant Anemia of chronic re nal failure, unspecified CKD stage (Primary Dx) Start: 12-11-2022 End: 12-11-2022 Patient encounter procedure Juani Rivera PA-C Work Phone: [facility] Comment on above: Sore throat (Primary Dx); Viral URI Start: 11-13-2022 End: 11-13-2022 ambulatory Lab/Port [facility] Work Phone: Hematology/Oncology Comment on above: Kidney replaced by t ransplant; Immunosuppressive management encounter following kidney transplant 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) Start: 11-04-2022 End: 11-05-2022 ambulatory DILIA MORALES MD Facility:B Start: 11-04-2022 End: 11-04-2022 Patient encounter procedure DILIA MORALES MD [facility] Start: 10-09-2022 ambulatory Edgardo Nguyen MD Work Phone: [facility] [place] Comment on above: labs Start: 10-09-2022 E-mail encounter fro m caregiver Edgardo Nguyen MD Work Phone: [facility] Start: 10-07-2022 End: 10-07-2022 ambulatory Lab/Port [facility] Work Phone: Hematology/Oncology Comment on above: 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) (Primary Dx); Acute infectious diarrhea Start: 10-06-2022 Orders Only Edgardo Nguyen MD Work Phone: [facility] [place] Comment on above: Acute infectious latanya rrhea (Primary Dx) Start: 10-02-2022 End: 10-02-2022 ambulatory Injection [facility] Work Phone: Hematology/Oncology Comment on above: Anemia of chronic re nal failure, unspecified CKD stage (Primary Dx) Start: 10-02-2022 End: 10-02-2022 ambulatory Lab/Port [facility] Work Phone: Hematology/Oncology Comment on above: 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) (Primary Dx); Kidney replaced by transplant; Immunosuppressive management encounter following kidney transplant Start: 09-10-2022 ambulatory Sandeep Ramsey DO Work Phone: [facility] Start: 09-10-2022 Follow-up encounter Sandeep nichols DO Work Phone: [facility] Comment on above: Medication Follow-up Start: 09-08-2022 Orders Only Edgardo Nguyen MD Work Phone: Transplant Center Start: 09-07-2022 Refill Sandeep Ramsey DO Work Phone: [facility] [place] Start: 09-04-2022 Orders Only Edgardo Nguyen MD Work Phone: Transplant Center Comment on above: Diarrhea of presumed infectious origin (Primary Dx) Start: 09-01-2022 Refill Edgardo Nguyen MD Work Phone: Kidney [facility] Comment on above: Refill Request Start: 07-30-2022 Telephone encounter Schuyler scott DO Work Phone: Hematology/Oncology Comment on above: Follow Up Start: 07-17-2022 End: 07-17-2022 ambulatory Lab/Port [facility] Work Phone: Hematology/Oncology Comment on above: 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); Kidney replaced by transplant; Anemia of chronic renal failure, unspecified CKD stage; Immunosuppressive management encounter following kidney transplant 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) Start: 07-15-2022 Refill Edgardo Nguyen MD Work Phone: [facility] Comment on above: Refill Request Start: 07-11-2022 Refill Edgardo Nguyen MD Work Phone: [facility] Comment on above: Refill Request Start: 07-03-2022 End: 07-03-2022 ambulatory In[facility] Work Phone: Hematology/Oncology Comment on above: 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) 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); Kidney replaced by transplant; Immunosuppressive management encounter following kidney transplant Start: 06-27-2022 Refill Nicki Cabrera MD Work Phone: Transplant Center Comment on above: Med Change Request Start: 06-18-2022 End: 06-18-2022 ambulatory Lab/Port [facility] Work Phone: Hematology/Oncology Comment on above: Kidney replaced by t ransplant; Immunosuppressive management encounter following kidney transplant 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) Start: 06-05-2022 Orders Only Nicki Cabrera MD Work Phone: Transplant Center Start: 05-31-2022 Refill Antoinette villasenor APRN.[employer]ALES F[employer]OR TEAM LEADER Work Phone: Kidney [facility] Comment on above: Refill Request Start: 05-08-2022 End: 05-08-2022 ambulatory Injection [facility] Work Phone: Hematology/Oncology Comment on above: Immunosuppressive ma nagement encounter following kidney transplant (Primary Dx) Kidney replaced by t ransplant; Immunosuppressive management encounter following kidney transplant Start: 04-10-2022 End: 04-10-2022 ambulatory Lab/Port [facility] Work Phone: Hematology/Oncology Comment on above: Malignant neoplasm o f uterine adnexa (HCC) (Primary Dx); Kidney replaced by transplant; Immunosuppressive management encounter following kidney transplant 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) Start: 03-31-2022 Orders Only Edgardo Nguyen MD Work Phone: Transplant Center Comment on above: Kidney replaced by t ransplant (Primary Dx); Immunosuppressive management encounter following kidney transplant Start: 03-27-2022 End: 03-27-2022 ambulatory [facility] Work Phone: Hematology/Oncology Comment on above: 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) Anemia of chronic re nal failure, unspecified CKD stage (Primary Dx) Start: 03-13-2022 End: 03-13-2022 ambulatory Lab/Port [facility] Work Phone: Hematology/Oncology Comment on above: Anemia of chronic re nal failure, unspecified CKD stage (Primary Dx); Anemia in stage 4 chronic kidney disease (HCC) Anemia of chronic re nal failure, unspecified CKD stage (Primary Dx) Start: 02-20-2022 Telephone encounter Schuyler scott DO Work Phone: Hematology/Oncology Comment on above: Appointment Start: 02-19-2022 Refill Edgardo Nguyen MD Work Phone: Transplant Center Comment on above: Refill Request Start: 02-13-2022 End: 02-13-2022 ambulatory Lab/Port [facility] Work Phone: Hematology/Oncology Comment on above: Kidney replaced by t ransplant; Aftercare following organ transplant; Therapeutic drug monitoring; Benign essential HTN; Anemia of chronic renal failure, unspecified CKD stage Anemia of chronic re nal failure, unspecified CKD stage (Primary Dx) Start: 12-02-2018 End: 12-03-2018 Patient encounter procedure [facility] Start: 09-17-2018 Patient encounter procedure [facility] Procedures Date Procedure Procedure Detail Performing Clinician Start: 09-06-2024 Blood count complete auto&auto difrntl wbc Schuyler Abrams DO Work Phone: Start: 09-01-2024 STREP A MOLECULAR (POC) [facility] Provider Start: 08-23-2024 Blood count complete automated Edgardo Nguyen MD Work Phone: Start: 08-09-2024 Blood count complete automated Edgardo Nguyen MD Work Phone: Start: 07-26-2024 Blood count complete auto&auto difrntl wbc Schuyler Abrams DO Work Phone: Start: 07-14-2024 Blood count complete automated Edgardo Nguyen MD Work Phone: Start: 06-28-2024 Blood count complete auto&auto difrntl wbc Schuyler Abrams DO Work Phone: Start: 06-28-2024 Urnls dip stick/tabl et rgnt auto w/o microscopy Bulk Order Provider Start: 06-14-2024 Blood count complete auto&auto difrntl wbc Schuyler Abrams DO Work Phone: Start: 05-31-2024 Blood count complete auto&auto difrntl wbc Edgardo Nguyen MD Work Phone: Start: 05-03-2024 Blood count complete auto&auto difrntl wbc Edgardo Nguyen MD Work Phone: Start: 04-05-2024 Blood count complete auto&auto difrntl wbc Edgardo Nguyen MD Work Phone: Start: 03-22-2024 Blood count complete auto&auto difrntl wbc Edgardo Nguyen MD Work Phone: Start: 03-09-2024 Blood count complete auto&auto difrntl wbc Schuyler Vigil Masci DO Work Phone: Start: 02-23-2024 Blood count complete auto&auto difrntl wbc Schuyler Vigil Masci DO Work Phone: Start: 02-09-2024 Blood count complete auto&auto difrntl wbc Schuyler Vigil Masci DO Work Phone: Start: 01-26-2024 Blood count complete auto&auto difrntl wbc Edgardo Nguyen MD Work Phone: Start: 01-07-2024 Blood count complete auto&auto difrntl wbc Schuyler Vigil Masci DO Work Phone: Start: 12-29-2023 Urnls dip stick/tabl et rgnt auto w/o microscopy Bulk Order Provider Start: 09-08-2023 Blood count complete auto&auto difrntl wbc Schuyler Vigil Masci DO Work Phone: Start: 07-23-2023 Basic metabolic pane l calcium total Edgardo Nguyen MD Work Phone: Start: 07-23-2023 Hepatic function panel Edgardo Nguyen MD Work Phone: Start: 03-17-2023 Blood count complete auto&auto difrntl wbc Edgardo Nguyen MD Work Phone: Start: 02-09-2023 Blood count complete auto&auto difrntl wbc Edgardo Nguyen MD Work Phone: Start: 12-25-2022 Blood count complete auto&auto difrntl wbc Schuyler A Masci DO Work Phone: Start: 12-11-2022 STREP A MOLECULAR (POC) Juani Rivera PA-C Work Phone: Start: 11-13-2022 Blood count complete auto&auto difrntl wbc Edgardo Nguyen MD Work Phone: Start: 11-13-2022 Drug screen quantita tive tacrolimus Edgardo Nguyen MD Work Phone: Start: 10-02-2022 Blood count complete auto&auto difrntl wbc Edgardo Nguyen MD Work Phone: Start: 07-17-2022 Blood count complete auto&auto difrntl wbc Schuyler Vigil Masci DO Work Phone: Start: 07-03-2022 Blood count complete auto&auto difrntl wbc Edgardo Nguyen MD Work Phone: Start: 06-18-2022 Blood count complete auto&auto difrntl wbc Edgardo Nguyen MD Work Phone: Start: 05-08-2022 Blood count complete auto&auto difrntl wbc Edgardo Nguyen MD Work Phone: Start: 04-10-2022 Blood count complete auto&auto difrntl wbc Edgardo Nguyen MD Work Phone: Start: 03-27-2022 GOLD TOP EXTRA TUBE Raghavendra Conti MD Work Phone: Start: 03-27-2022 LAB EXTRA TUBES Josee Conti MD Work Phone: Start: 03-27-2022 LIGHT GREEN TOP EXTR A TUBE Josee Conti MD Work Phone: Start: 03-27-2022 Blood count complete auto&auto difrntl wbc Schuyler A Masci DO Work Phone: Start: 03-13-2022 Blood count complete auto&auto difrntl wbc Schuyler A Masci DO Work Phone: Start: 02-13-2022 Blood count complete auto&auto difrntl wbc Schuyler A Masci DO Work Phone: Start: 12-28-2018 History of operative procedure on knee S/P left knee surgery Lab/Port Wstr Work Phone: Start: 09-07-2018 History of renal transplant Renal transplant recipient Lab/Port [facility] Work Phone: Start: 05-06-2017 Adult depression screening assessment Lab/Port [facility] Work Phone: Start: 11-16-2011 Transplant of kidney CATHERINE MORALES MD Start: 01-05-2007 History of renal transplant Kidney replaced by transplant Lab/Port [facility] Work Phone: Start: 11-16-2006 Transplant of kidney CATHERINE MORALES MD Start: 11-16-2001 Operation on ovary KONG MORALES MD Comment on above: dysgerminoma right ovary removed Arthroplasty of knee DILIA MORALES MD Arthroscopy of knee DILIA KAISER MD Dilation and curettage LESLYE MORALES MD History of renal transplant Kidney replaced by transplant Lab/Port [facility] Work Phone: History of renal transplant Kidney replaced by transplant Edgardo Nguyen MD Work Phone: History of renal transplant Kidney replaced by transplant Lab/Port [facility] Work Phone: History of renal transplant Kidney replaced by transplant Lab/Port [facility] Work Phone: History of renal transplant Kidney replaced by transplant Antoinette Simeon APRN.[employer]ALES FLOOR TEAM LEADER Work Phone: History of renal transplant Kidney replaced by transplant Lab/Port [facility] Work Phone: History of renal transplant Kidney replaced by transplant Lab/Port [facility] Work Phone: History of renal transplant Kidney replaced by transplant Edgardo Nguyen MD Work Phone: History of renal transplant Kidney replaced by transplant Lab/Port [facility] Work Phone: History of renal transplant Kidney replaced by transplant Edgardo Nguyen MD Work Phone: History of renal transplant Kidney replaced by transplant Lab/Port [facility] Work Phone: History of renal transplant Kidney replaced by transplant Lab/Port [facility] Work Phone: History of renal transplant Kidney replaced by transplant Lab/Port [facility] Work Phone: History of renal transplant Kidney replaced by transplant Lab/Port [facility] Work Phone: History of renal transplant DILIA MORALES MD History of renal transplant Kidney replaced by transplant Lab/Port [facility] Work Phone: History of renal transplant Renal transplant recipient Dk Hawk DO Work Phone: History of renal transplant Status post kidney transplant Edgardo Nguyen MD Work Phone: History of renal transplant Status post kidney transplant Lab/Port [facility] Work Phone: History of renal transplant Kidney replaced by transplant Eliza Garcia History of renal transplant Status post kidney transplant Lab/Port [facility] Work Phone: History of renal transplant Kidney replaced by transplant Elsa Berrios PA-C Work Phone: History of renal transplant Status post kidney transplant Lab/Port [facility] Work Phone: History of renal transplant Kidney replaced by transplant Antoinette Simeon APRN.SALES FLOOR TEAM LEADER Work Phone: History of renal transplant Kidney replaced by transplant Edgardo Nguyen MD Work Phone: History of renal transplant Status post kidney transplant Lab/Port [facility] Work Phone: History of renal transplant Status post kidney transplant Lab/Port [facility] Work Phone: History of renal transplant Status post kidney transplant Lab/Port [facility] Work Phone: History of renal transplant Status post kidney transplant Lab/Port [facility] Work Phone: History of renal transplant Status post kidney transplant Lab/Port [facility] Work Phone: History of renal transplant Status post kidney transplant Lab/Port [facility] Work Phone: History of renal transplant Status post kidney transplant Lab/Port [facility] Work Phone: History of renal transplant Status post kidney transplant Lab/Port [facility] Work Phone: History of renal transplant Kidney replaced by transplant Lab/Port [facility] Work Phone: History of renal transplant Kidney replaced by transplant Lab/Port [facility] Work Phone: History of renal transplant Kidney replaced by transplant Lab/Port [facility] Work Phone: History of renal transplant Kidney replaced by transplant Lab/Port [facility] Work Phone: History of renal transplant Kidney replaced by transplant Edgardo Nguyen MD Work Phone: History of renal transplant Kidney replaced by transplant Lab/Port [facility] Work Phone: History of renal transplant Kidney replaced by transplant Lab/Port [facility] Work Phone: History of renal transplant Kidney replaced by transplant Lab/Port [facility] Work Phone: History of renal transplant Kidney replaced by transplant Clementina Silva SECURITIES CLERK.SALES FLOOR TEAM LEADER Work Phone: Operation on ovary DILIA BOGGS MD Comment on above: right ovary removed Transplant of kidney Renal trans plant( Confirmed ) DILIA MORALES MD Plan of Treatment Date Care Activity Detail Author Start: 09-06-2025 Complete blood count Hemoglobin/Ten tocrit [facility] Start: 09-06-2025 Creatinine measurement Serum Creatin ine [facility] Start: 09-01-2025 End: 09-01-2025 ambulatory 09/01/2025 9:40 AM EDT Visit (SP) Office Hematology/Oncology [address] [place] [address] Schuyler Abrams DO [address] [place] [address] 1YR OV Hematology/Oncology Comment on above: 1YR OV Start: 08-23-2025 Complete blood count Hemoglobin/Ten tocrit [facility] Start: 08-23-2025 Creatinine measurement Serum Creatin ine [facility] Start: 08-09-2025 Complete blood count Hemoglobin/Ten tocrit [facility] Start: 07-26-2025 Complete blood count Hemoglobin/Ten tochit [facility] Start: 07-26-2025 Creatinine measurement Serum Creatin ine [facility] Start: 07-14-2025 Complete blood count Hemoglobin/Ten tochit [facility] Start: 07-14-2025 Creatinine measurement Serum Creatin ine [facility] Start: 06-28-2025 Complete blood count Hemoglobin/Ten tochit [facility] Start: 06-28-2025 Creatinine measurement Serum Creatin ine [facility] Start: 06-14-2025 Complete blood count Hemoglobin/Ten tocrit [facility] Start: 06-14-2025 Creatinine measurement Serum Creatin ine [facility] Start: 05-31-2025 Complete blood count Hemoglobin/Ten tocrit [facility] Start: 05-31-2025 Creatinine measurement Serum Creatin ine [facility] Start: 05-03-2025 Complete blood count Hemoglobin/Tne tocrit [facility] Start: 05-03-2025 Creatinine measurement Serum Creatin ine [facility] Start: 04-05-2025 Complete blood count Hemoglobin/Ten tocrit [facility] Start: 04-05-2025 Creatinine measurement Serum Creatin ine [facility] Start: 03-22-2025 Complete blood count Hemoglobin/Ten tocrit [facility] Start: 03-22-2025 Creatinine measurement Serum Creatin ine [facility] Start: 03-09-2025 Complete blood count Hemoglobin/Ten tocrit [facility] Start: 03-09-2025 Creatinine measurement Serum Creatin ine [facility] Start: 02-22-2025 Complete blood count Hemoglobin/Ten tocrit [facility] Start: 02-22-2025 Creatinine measurement Serum Creatin ine [facility] Start: 02-08-2025 Complete blood count Hemoglobin/Ten tocrit [facility] Start: 02-08-2025 Creatinine measurement Serum Creatin ine [facility] Start: 01-25-2025 Complete blood count Hemoglobin/Ten tocrit [facility] Start: 01-25-2025 Creatinine measurement Serum Creatin ine [facility] Start: 01-07-2025 Complete blood count Hemoglobin/Ten tocrit [facility] Start: 12-29-2024 Complete blood count Hemoglobin/Ten tocrit [facility] Start: 12-29-2024 Creatinine measurement Serum Creatin ine [facility] Start: 12-07-2024 End: 12-07-2024 Patient encounter procedure 12/07/2024 11:00 AM EST Appointment [facility] [address] [place] [address] Eugenie Nettles MD [address] [place] [address] colon [facility] Comment on above: colon Start: 11-26-2024 Complete blood count Hemoglobin/Ten tocrit [facility] Start: 11-26-2024 Creatinine measurement Serum Creatin ine [facility] Start: 10-15-2024 [facility] Start: 10-15-2024 Creatinine measurement Serum Creatin ine [facility] Start: 10-15-2024 Hemoglobin/Hematocrit Hemoglobin/Hem atocrit [facility] Start: 10-15-2024 Serum Creatinine Serum Creatinine Cl [facility] Start: 09-20-2024 End: 09-20-2024 ambulatory Hematology/Oncology Comment on above: Q2WK CBC(PORT)?INJEC TION TODAY//MDCR* - no earlier than 9:30 AM Q2WK ?ARANESP(PORT)L ABS EARLY/MDCR* Start: 09-08-2024 Hemoglobin/Hematocrit Hemoglobin/Hem atocrit [facility] Start: 09-08-2024 Serum Creatinine Serum Creatinine [facility] Start: 09-06-2024 End: 12-06-2024 Ferritin [Mass/volume] in Serum or Plasma [facility] Comment on above: Expected: 09/06/2024 , Expires: 12/06/2024 Start: 09-06-2024 End: 12-06-2024 Iron and Iron binding capacity panel - Serum or Plasma [facility] Work Phone: Comment on above: Expected: 09/06/2024 , Expires: 12/06/2024 Start: 09-06-2024 End: 09-06-2024 ambulatory Hematology/Oncology Comment on above: Q2WK CBC(PORT)?INJEC TION TODAY//MDCR* - no earlier than 9:30 AM Q2WK ?ARANESP(PORT)L ABS EARLY/MDCR* Start: 09-06-2024 End: 09-06-2024 Patient encounter procedure 09/06/2024 9:30 AM EDT Office Visit General Surgery [address] [place] [address] Clementina Silva APRN.SALES FLOOR TEAM LEADER [address] [place] [address] Consult for colonoscopy General Surgery Comment on above: Consult for colonosc opy Start: 09-01-2024 End: 09-01-2024 ambulatory 09/01/2024 12:10 PM EDT Visit (SP) Office Hematology/Oncology [address] [place] [address] Schuyler Abrams, [address] [place] [address] OV* Hematology/Oncology Comment on above: OV* Start: 08-23-2024 End: 08-23-2024 ambulatory Hematology/Oncology Comment on above: Q2WK CBC(PORT)?INJEC TION TODAY//MDCR* - no earlier than 9:30 AM Q2WK ?ARANESP(PORT)L ABS EARLY/MDCR* Start: 08-09-2024 End: 08-09-2024 ambulatory Hematology/Oncology Comment on above: Q2WK CBC(PORT)?INJEC TION TODAY//MDCR* Q2WK ?ARANESP(PORT)L ABS EARLY/MDCR* Q2WK CBC(PORT)?INJEC TION TODAY//MDCR*- no earlier than 9:30 AM Start: 07-26-2024 End: 07-26-2024 ambulatory Hematology/Oncology Comment on above: Q2WK CBC(PORT)?INJEC TION TODAY//MDCR* Q2WK ?ARANESP(PORT)L ABS EARLY/MDCR* Start: 07-23-2024 HEMOGLOBIN/HEMATOCRIT HEMOGLOBIN/HEM ATOCRIT [facility] Start: 07-23-2024 SERUM CREATININE SERUM CREATININE Cl [facility] Start: 07-17-2024 Influenza vaccination C [facility] Start: 07-12-2024 End: 07-12-2024 ambulatory Hematology/Oncology Comment on above: Q2WK CBC(PORT)?INJEC TION TODAY//MDCR* Q2WK ?ARANESP(PORT)L ABS EARLY/MDCR* Q2WK IRON STUDIES/CB C(PORT)?INJECTION TODAY//MDCR* Start: 06-29-2024 End: 09-28-2024 Ferritin [Mass/volume] in Serum or Plasma FERRITIN Lab Routine Anemia in stage 4 chronic kidney disease (HCC) (HCC) Expected: 06/29/2024, Expires: 09/28/2024 [facility] Comment on above: Expected: 06/29/2024 , Expires: 09/28/2024 Start: 06-29-2024 End: 09-28-2024 Iron and Iron binding capacity panel - Serum or Plasma IRON AND TIBC Lab Routine Anemia in stage 4 chronic kidney disease (HCC) (HCC) Expected: 06/29/2024, Expires: 09/28/2024 [facility] Work Phone: Comment on above: Expected: 06/29/2024 , Expires: 09/28/2024 Start: 06-28-2024 End: 06-28-2024 ambulatory Hematology/Oncology Comment on above: Q2WK CBC(PORT)?INJEC TION TODAY//MDCR* Q2WK ?ARANESP(PORT)L ABS EARLY/MDCR* Start: 06-28-2024 End: 06-28-2024 Patient encounter procedure 06/28/2024 10:00 AM EDT Office Visit Kidney Medicine [facility] [address] [id number] Edgardo Nguyen MD [address] [place] [address] FOLLOW UP Kidney [facility] Comment on above: FOLLOW UP Start: 06-14-2024 End: 06-14-2024 ambulatory Hematology/Oncology Comment on above: Q2WK CBC(PORT)?INJEC TION TODAY//MDCR* Q2WK ?ARANESP(PORT)L ABS EARLY/MDCR* Start: 05-31-2024 End: 08-30-2024 BK VIRUS DNA QUANTIFICATION, PLASMA BK VIRUS DNA QUANTIFICATION, PLASMA Lab Routine Kidney replaced by transplant Immunosuppressive management encounter following kidney transplant Expected: 05/31/2024, Expires: 08/30/2024 [facility] Comment on above: Expected: 05/31/2024 , Expires: 08/30/2024 Start: 05-31-2024 End: 08-30-2024 Tacrolimus [Mass/volume] in Blood [facility] Work Phone: Comment on above: Expected: 05/31/2024 , Expires: 08/30/2024 Start: 05-31-2024 End: 05-31-2024 ambulatory Hematology/Oncology Comment on above: Q2WK CBC(PORT)?INJEC TION TODAY//MDCR* Q2WK ?ARANESP(PORT)L ABS EARLY/MDCR* Start: 05-17-2024 End: 05-17-2024 ambulatory Hematology/Oncology Comment on above: Q2WK CBC(PORT)?INJEC TION TODAY//MDCR* Q2WK ?ARANESP(PORT)L ABS EARLY/MDCR* Start: 05-03-2024 End: 08-02-2024 Tacrolimus [Mass/volume] in Blood [facility] Work Phone: Comment on above: Expected: 05/03/2024 , Expires: 08/02/2024 Start: 05-03-2024 End: 05-03-2024 ambulatory Hematology/Oncology Comment on above: Q2WK CBC(PORT)?INJEC TION TODAY//MDCR* Q2WK ?ARANESP(PORT)L ABS EARLY/MDCR* Start: 04-29-2024 BP CONTROLLED (<130/80) BP CONTROLLE D (<130/80) [facility] Start: 04-19-2024 End: 04-19-2024 ambulatory Hematology/Oncology Comment on above: Q2WK CBC(PORT)?INJEC TION TODAY//MDCR* Q2WK ?ARANESP(PORT)L ABS EARLY/MDCR* Start: 04-05-2024 End: 04-05-2024 ambulatory Hematology/Oncology Comment on above: Q2WK CBC(PORT)?INJEC TION TODAY//MDCR* Q2WK ?ARANESP(PORT)L ABS EARLY/MDCR* Start: 03-22-2024 End: 03-22-2024 ambulatory Hematology/Oncology Comment on above: CBC(PORT)?INJECTION TODAY//MDCR* coming at 12 - ?JHONATAN PADILLA(PORT0/ABS EARLY/MDCR* Start: 03-17-2024 [facility]: 03-17-[facility]24 SERUM CREATININE SERUM CREATININE [facility] Start: 02-10-2024 HEMOGLOBIN/HEMATOCRIT HEMOGLOBIN/HEM [facility] Start: 02-10-2024 SERUM CREATININE SERUM CREATININE [facility] Start: 01-07-2024 End: 04-07-2024 Ferritin [Mass/volume] in Serum or Plasma FERRITIN BLD Lab Routine Anemia in stage 4 chronic kidney disease (HCC) (HCC) Expected: 01/07/2024, Expires: 04/07/2024 [facility] Work Phone: Comment on above: Expected: 01/07/2024 , Expires: 04/07/2024 Start: 01-07-2024 End: 04-07-2024 Iron and Iron binding capacity panel - Serum or Plasma IRON + TIBC Lab Routine Anemia in stage 4 chronic kidney disease (HCC) (HCC) Expected: 01/07/2024, Expires: 04/07/2024 [facility] Work Phone: Comment on above: Expected: 01/07/2024 , Expires: 04/07/2024 Start: 12-29-2023 End: 03-29-2024 BK VIRUS PCR,QUANT,P [facility] Work Phone: Comment on above: Expected: 12/29/2023 , Expires: 03/29/2024 Start: 12-29-2023 End: 03-29-2024 DNA double strand Ab [Units/volume] in Serum by Immunoassay [facility] Work Phone: Comment on above: Expected: 12/29/2023 , Expires: 03/29/2024 Start: 12-29-2023 End: 03-29-2024 Nuclear Ab [Presence] in Serum by Immunoassay [facility] Work Phone: Comment on above: Expected: 12/29/2023 , Expires: 03/29/2024 Start: 12-25-2023 HEMOGLOBIN/HEMATOCRIT HEMOGLOBIN/HEM [facility] Start: 12-25-2023 SERUM CREATININE SERUM CREATININE [facility] Start: 11-16-2023 Behavioral Health Screening Behavioral Health Screening [facility] Start: 11-16-2023 Depression Assessment [facility] Start: 11-13-2023 HEMOGLOBIN/HEMATOCRIT HEMOGLOBIN/HEM [facility] Start: 11-13-2023 SERUM CREATININE SERUM CREATININE [facility] Start: 10-02-2023 HEMOGLOBIN/HEMATOCRIT HEMOGLOBIN/HEM [facility] Start: 10-02-2023 SERUM CREATININE SERUM CREATININE [facility] Start: 08-28-2023 HEMOGLOBIN/HEMATOCRIT HEMOGLOBIN/HEM [facility] Start: 08-28-2023 SERUM CREATININE SERUM CREATININE [facility] Start: 07-17-2023 HEMOGLOBIN/HEMATOCRIT HEMOGLOBIN/HEM [facility] Start: 07-17-2023 Influenza vaccination [facility] Start: 07-17-2023 SERUM CREATININE SERUM CREATININE [facility] Start: 07-03-2023 HEMOGLOBIN/HEMATOCRIT HEMOGLOBIN/HEM [facility] Start: 07-03-2023 SERUM CREATININE SERUM CREATININE [facility] Start: 06-18-2023 HEMOGLOBIN/HEMATOCRIT HEMOGLOBIN/HEM [facility] Start: 06-18-2023 SERUM CREATININE SERUM CREATININE [facility] Start: 06-10-2023 End: 08-10-2023 25-hydroxyvitamin D3 [Mass/volume] in Serum or Plasma VITAMIN D 25 HYDROXY Lab Routine Aftercare following organ transplant Status post kidney transplant Therapeutic drug monitoring Long-term use of immunosuppressant medication Vitamin D deficiency Secondary hypothyroidism BK viremia Expected: 06/10/2023, Expires: 08/10/2023 [facility] Work Phone: Comment on above: Expected: 06/10/2023 , Expires: 08/10/2023 Start: 06-10-2023 End: 08-10-2023 BK VIRUS PCR,QUANT,P BK VIRUS PCR,QUANT,P Lab Routine Aftercare following organ transplant Status post kidney transplant Therapeutic drug monitoring Long-term use of immunosuppressant medication Vitamin D deficiency Secondary hypothyroidism BK viremia Expected: 06/10/2023, Expires: 08/10/2023 [facility] Work Phone: Comment on above: Expected: 06/10/2023 , Expires: 08/10/2023 Start: 06-10-2023 End: 08-10-2023 Hepatic function 2000 panel - Serum or Plasma HEPATIC FUNCTION PNL Lab Routine Aftercare following organ transplant Status post kidney transplant Therapeutic drug monitoring Long-term use of immunosuppressant medication Vitamin D deficiency Secondary hypothyroidism BK viremia Expected: 06/10/2023, Expires: 08/10/2023 [facility] Work Phone: Comment on above: Expected: 06/10/2023 , Expires: 08/10/2023 Start: 06-10-2023 End: 08-10-2023 Parathyrin.intact [Mass/volume] in Serum or Plasma PTH INTACT BLD Lab Routine Aftercare following organ transplant Status post kidney transplant Therapeutic drug monitoring Long-term use of immunosuppressant medication Vitamin D deficiency Secondary hypothyroidism BK viremia Expected: 06/10/2023, Expires: 08/10/2023 [facility] Work Phone: Comment on above: Expected: 06/10/2023 , Expires: 08/10/2023 Start: 05-08-2023 HEMOGLOBIN/HEMATOCRIT HEMOGLOBIN/HEM [facility] Start: 05-08-2023 SERUM CREATININE SERUM CREATININE [facility] Start: 04-10-2023 HEMOGLOBIN/HEMATOCRIT HEMOGLOBIN/HEM [facility] Start: 04-10-2023 SERUM CREATININE SERUM CREATININE [facility] Start: 03-27-2023 HEMOGLOBIN/HEMATOCRIT HEMOGLOBIN/HEM ATOCRIT [facility] Start: 03-13-2023 HEMOGLOBIN/HEMATOCRIT HEMOGLOBIN/HEM ATOCRIT [facility] Start: 02-13-2023 HEMOGLOBIN/HEMATOCRIT HEMOGLOBIN/HEM [facility] Start: 02-13-2023 SERUM CREATININE SERUM CREATININE [facility] Start: 12-11-2022 End: 12-25-2022 Influenza virus A and B RNA and SARS-CoV-2 (COVID-19) N gene panel - Respiratory specimen by BON with probe detection [facility] Work Phone: Comment on above: Expected: 12/11/2022 , Expires: 12/25/2022 Start: 11-16-2022 DEPRESSION ASSESSMENT DEPRESSION ASS [facility] Start: 10-06-2022 End: 12-06-2022 CMV DNA DETECTION AND QUANT CMV DNA DETECTION AND QUANT Lab Routine Acute infectious diarrhea Expected: 10/06/2022, Expires: 12/06/2022 [facility] Work Phone: Comment on above: Expected: 10/06/2022 , Expires: 12/06/2022 Start: 07-17-2022 Influenza vaccination [facility] Start: 05-23-2022 Hepatitis B surface antibody level LDL CHOLESTEROL [facility] Start: 04-10-2022 End: 06-10-2022 EXTRA TUBES EXTRA TUBES Lab STAT Malignant neoplasm of uterine adnexa (HCC) Expected: 04/10/2022, Expires: 06/10/2022 [facility] Work Phone: Comment on above: Expected: 04/10/2022 , Expires: 06/10/2022 Start: 03-27-2022 End: 05-27-2022 EXTRA TUBES EXTRA TUBES Lab STAT Anemia of chronic renal failure, unspecified CKD stage Expected: 03/27/2022, Expires: 05/27/2022 [facility] Work Phone: Comment on above: Expected: 03/27/2022 , Expires: 05/27/2022 Start: 11-16-2021 [facility]ION [facility]ESSMENT [facility] Start: 07-17-2021 Influenza vaccination INFLUENZA (#1) [facility] Start: 2019 COLOGUARD (FIT-DNA) COLOGUARD (FIT-D NA) [facility] Start: 2019 Colonoscopy COLONOSCOPY [facility] Start: 2019 COLORECTAL CANCER SCREENING COLORECTAL CANCER SCREENING [facility] Start: [address] COLONOGRAPHY [facility] Start: 2019 FECAL OCCULT BLOOD FECAL OCCULT BLOO D [facility] Start: 2019 Screening for malign ant neoplasm of colon [facility] Start: 2019 SIGMOIDOSCOPY SIGMOIDOSCOPY [facility] Start: 05-06-2018 Adult depression screening assessment DEPRESSION SCREENING [facility] Start: 09-16-2015 PAP TESTING PAP TESTING [facility] Start: 09-16-2015 Screening for malign ant neoplasm of cervix Pap Testing [facility] Start: 2014 Mammography [facility] Start: 2014 Screening for malign ant neoplasm of breast Mammogram Screening [facility] Start: 10-14-2012 Hemoglobin A1c measurement HbA1C [facility] Start: 10-14-2012 Hemoglobin A1c/Hemoglobin.total in Blood HBA1C [facility] Start: 2011 PNEUMOCOCCAL (3 - PCV) PNEUMOCOCCAL (3 - PCV) [facility] Start: 2011 Pneumococcal vaccination [facility] Start: 09-16-2011 Screening for malign ant neoplasm of cervix Cervical Cancer Screening [facility] Start: 10-08-2010 Hepatitis B screening URINE AL BUMIN:CREATININE RATIO [facility] Start: 2004 HPV TESTING HPV TESTING [facility] Start: 2004 Screening for malign ant neoplasm of cervix HPV Testing [facility] Start: 1993 ADULT PREVNAR ADULT PREVNAR [facility] Start: 1993 ADULT PREVNAR-13 ADULT PREVNAR-13 [facility] Start: 1993 HEPATITIS A (1 of 2 - Risk 2-dose series) HEPATITIS A (1 of 2 - Risk 2-dose series) [facility] Start: 1993 Hepatitis A Vaccine (1 of 2 - Risk 2-dose series) Hepatitis A Vaccine (1 of 2 - Risk 2-dose series) [facility] Start: 1993 SHINGRIX VACCINE (1 of 2) SHINGRIX VACCINE (1 of 2) [facility] Start: 1993 Urine microalbumin profile [facility] Start: 1992 ANNUAL PCP 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 DISEASE VISIT ANNUAL PCP TEAM CHRONIC DISEASE VISIT [facility] Start: 1992 Anxiety Screening Anxiety Screening [facility] Start: 1992 BP CONTROLLED (<130/80) BP CONTROLLE D (<130/80) [facility] Start: 1992 Depression Screening Depression Scre ening [facility] Start: 1986 COVID-19 VACCINE (1) COVID-19 VACCIN E (1) [facility] Start: 1984 3 comp foot exam completed DIABETIC FOOT EXAM [facility] Start: 1984 Diabetic foot examination Diabetic Foot Exam [facility] Start: 1984 Glaucoma screening Dilated Retinal E xam [facility] Start: 1984 Hepatitis B screening Urine Al bumin:Creatinine Ratio [facility] Start: 1984 Hepatitis C antibody , confirmatory test DILATED RETINAL EXAM [facility] Start: 1979 COVID-19 VACCINE (#1) COVID-19 VACCI NE (#1) [facility] Start: 1975 HEPATITIS A (1 of 2 - Risk 2-dose series) HEPATITIS A (1 of 2 - Risk 2-dose series) [facility] Start: 04-29-1975 COVID-19 VACCINE (#1) COVID-19 VACCI NE (#1) [facility] 25-hydroxyvitamin D3 [Mass/volume] in Serum or Plasma VITAMIN D 25 HYDROXY Lab Routine Aftercare following organ transplant Status post kidney transplant Therapeutic drug monitoring Long-term use of immunosuppressant medication Vitamin D deficiency Secondary hypothyroidism BK viremia 07/23/2023 9:31 AM EDT [facility] Work Phone: BK VIRUS DNA QUANTIFICATION, PLASMA BK VIRUS DNA QUANTIFICATION, PLASMA Lab Routine Kidney replaced by transplant Immunosuppressive management encounter following kidney transplant 07/14/2024 9:39 AM EDT [facility] BK VIRUS PCR,QUANT,P BK VIRUS PC R,QUANT,P Lab Routine Aftercare following organ transplant Status post kidney transplant Therapeutic drug monitoring Long-term use of immunosuppressant medication Vitamin D deficiency Secondary hypothyroidism BK viremia 07/23/2023 9:31 AM EDT [facility] Work Phone: End: 05-31-2025 CBC panel - Blood by Automated count COMPLETE BLOOD COUNT Lab Routine Kidney replaced by transplant Immunosuppressive management encounter following kidney transplant Once per month for 12 Occurrences starting 05/31/2024 until 05/31/2025 [facility] Comment on above: Once per month for 1 2 Occurrences starting 05/31/2024 until 05/31/2025 End: 03-31-2023 CBC W Auto Differential panel - Blood CBC + DIFF Lab Routine Kidney replaced by transplant Immunosuppressive management encounter following kidney transplant Once per month for 12 Occurrences starting 03/31/2022 until 03/31/2023 [facility] Work Phone: Comment on above: Once per month for 1 2 Occurrences starting 03/31/2022 until 03/31/2023 End: 06-09-2024 CBC W Auto Differential panel - Blood CBC + DIFF Lab Routine Aftercare following organ transplant Status post kidney transplant Therapeutic drug monitoring Long-term use of immunosuppressant medication Vitamin D deficiency Secondary hypothyroidism BK viremia Once per month for 12 Occurrences starting 06/10/2023 until 06/09/2024 [facility] Work Phone: Comment on above: Once per month for 1 2 Occurrences starting 06/10/2023 until 06/09/2024 End: 02-07-2025 CBC W Auto Differential panel - Blood CBC + DIFF Lab STAT Anemia in stage 4 chronic kidney disease (HCC) (HCC) Every other week for 26 Occurrences starting 02/08/2024 until 02/07/2025 [facility] Work Phone: Comment on above: Every other week for 26 Occurrences starting 02/08/2024 until 02/07/2025 CDIFF PCR W/RFLX EIA IF POSITIVE CDIFF PCR W/RFLX EIA IF POSITIVE Lab Routine Acute infectious diarrhea Ordered: 10/06/2022 [facility] Work Phone: Comment on above: Ordered: 10/06/2022 Clostridioides difficile toxin genes [Presence] in Stool by BON with probe detection C. DIFFICILE PCR Lab Routine Diarrhea of presumed infectious origin Ordered: 09/04/2022 [facility] Work Phone: Comment on above: Ordered: 09/04/2022 CMV DNA DETECTION AN D QUANT CMV DNA DETECTION AND QUANT Lab Routine Acute infectious diarrhea 10/07/2022 11:47 AM EST [facility] Work Phone: End: 05-31-2025 Comprehensive metabolic 2000 panel - Serum or Plasma COMPREHENSIVE METABOLIC PANEL Lab Routine Kidney replaced by transplant Immunosuppressive management encounter following kidney transplant Once per month for 12 Occurrences starting 05/31/2024 until 05/31/2025 [facility] Comment on above: Once per month for 1 2 Occurrences starting 05/31/2024 until 05/31/2025 ENTERIC BACTERIAL PA CHAUNCEY BY PCR ENTERIC BACTERIAL PANEL BY PCR Lab Routine Diarrhea of presumed infectious origin Ordered: 09/04/2022 [facility] Work Phone: Comment on above: Ordered: 09/04/2022 ENTERIC BACTERIAL PA CHAUNCEY BY PCR ENTERIC BACTERIAL PANEL BY PCR Lab Routine Acute infectious diarrhea Ordered: 10/06/2022 [facility] Work Phone: Comment on above: Ordered: 10/06/2022 Ferritin [Mass/volum e] in Serum or Plasma FERRITIN BLD Lab Routine Anemia in stage 4 chronic kidney disease (HCC) ([facility]) 01/08/2024 9:40 AM [facility] Work Phone: Ferritin [Mass/volum e] in Serum or Plasma FERRITIN Lab Routine Anemia in stage 4 chronic kidney disease (HCC) ([facility]) 07/14/2024 9:39 AM [facility] Iron and Iron bindin g capacity panel - Serum or Plasma IRON + TIBC Lab Routine Anemia in stage 4 chronic kidney disease (HCC) ([facility]) 01/08/2024 9:40 AM [facility] Work Phone: Iron and Iron bindin g capacity panel - Serum or Plasma IRON AND TIBC Lab Routine Anemia in stage 4 chronic kidney disease (HCC) (HCC) 07/14/2024 9:39 AM [facility] Work Phone: End: 12-28-2024 KID/POOLE REC POST TX DSA KID/POOLE REC POST TX DSA ALLOGEN Routine Kidney replaced by transplant Persistent proteinuria Immunosuppressive management encounter following kidney transplant 1 Occurrences starting 12/29/2023 until 12/28/2024 [facility] Work Phone: Comment on above: 1 Occurrences starti ng 12/29/2023 until 12/28/2024 KID/POOLE REC POST TX DSA KID/POOLE REC POST TX DSA ALLOGEN Routine Kidney replaced by transplant Persistent proteinuria Immunosuppressive management encounter following kidney transplant 12/29/2023 12:18 PM EST [facility] Work Phone: Parathyrin.intact [Mass/volume] in Serum or Plasma PTH INTACT BLD Lab Routine Aftercare following organ transplant Status post kidney transplant Therapeutic drug monitoring Long-term use of immunosuppressant medication Vitamin D deficiency Secondary hypothyroidism BK viremia 07/23/2023 9:31 AM EDT [facility] Work Phone: Protein/Creatinine [Mass Ratio] in Urine PROTEIN CREATININE RATIO Lab Routine Kidney replaced by transplant Persistent proteinuria Immunosuppressive management encounter following kidney transplant Ordered: 12/29/2023 [facility] Work Phone: Comment on above: Ordered: 12/29/2023 End: 03-31-2023 Renal function 2000 panel - Serum or Plasma RENAL FUNCTION PANEL Lab Routine Kidney replaced by transplant Immunosuppressive management encounter following kidney transplant Once per month for 12 Occurrences starting 03/31/2022 until 03/31/2023 [facility] Work Phone: Comment on above: Once per month for 1 2 Occurrences starting 03/31/2022 until 03/31/2023 End: 06-09-2024 Renal function 2000 panel - Serum or Plasma RENAL FUNCTION PANEL Lab Routine Aftercare following organ transplant Status post kidney transplant Therapeutic drug monitoring Long-term use of immunosuppressant medication Vitamin D deficiency Secondary hypothyroidism BK viremia Once per month for 12 Occurrences starting 06/10/2023 until 06/09/2024 [facility] Work Phone: Comment on above: Once per month for 1 2 Occurrences starting 06/10/2023 until 06/09/2024 End: 09-06-2025 Screening colonoscopy COLONOSCOPY SCREENING Endoscopy Routine Screen for colon cancer 1 Occurrences starting 09/06/2024 until 09/06/2025 [facility] Work Phone: Comment on above: 1 Occurrences starti ng 09/06/2024 until 09/06/2025 STREP A MOLECULAR (POC) STREP A MOLECULAR (POC) Microbiology Routine Viral URI with cough Ordered: 09/01/2024 [facility] Work Phone: Comment on above: Ordered: 09/01/2024 Tacrolimus [Mass/volume] in Blood TACROLIMUS/FK-506 BL Lab Routine Kidney replaced by transplant Immunosuppressive management encounter following kidney transplant 05/08/2022 10:20 AM [employer] Work Phone: Tacrolimus [Mass/volume] in Blood TACROLIMUS/FK-506 BL Lab Routine Kidney replaced by transplant Immunosuppressive management encounter following kidney transplant 06/18/2022 9:39 AM [employer] Work Phone: Tacrolimus [Mass/volume] in Blood TACROLIMUS/FK-506 BL Lab Routine Kidney replaced by transplant Immunosuppressive management encounter following kidney transplant 07/03/2022 10:06 AM [place] Work Phone: Tacrolimus [Mass/volume] in Blood TACROLIMUS/FK-506 BL Lab Routine Kidney replaced by transplant Immunosuppressive management encounter following kidney transplant 07/17/2022 10:12 AM [facility] Work Phone: Tacrolimus [Mass/volume] in Blood TACROLIMUS/FK-506 BL Lab Routine Kidney replaced by transplant Immunosuppressive management encounter following kidney transplant 10/02/2022 8:28 AM [employer] Work Phone: Tacrolimus [Mass/volume] in Blood TACROLIMUS/FK-506 BL Lab Routine Kidney replaced by transplant Immunosuppressive management encounter following kidney transplant 12/25/2022 9:01 AM [email or web address] [place] [facility] Work Phone: Tacrolimus [Mass/volume] in Blood TACROLIMUS/FK-506 BL Lab Routine Kidney replaced by transplant Immunosuppressive management encounter following kidney transplant 02/09/2023 9:51 AM [employer] Work Phone: Tacrolimus [Mass/volume] in Blood TACROLIMUS/FK-506 BL Lab Routine Kidney replaced by transplant Immunosuppressive management encounter following kidney transplant 03/17/2023 9:30 AM [place] Work Phone: End: 06-09-2024 Tacrolimus [Mass/volume] in Blood TACROLIMUS/FK-506 BL Lab Routine Aftercare following organ transplant Status post kidney transplant Therapeutic drug monitoring Long-term use of immunosuppressant medication Vitamin D deficiency Secondary hypothyroidism BK viremia Once per month for 12 Occurrences starting 06/10/2023 until 06/09/2024 [place] [facility] Work Phone: Comment on above: Once per month for 1 2 Occurrences starting 06/10/2023 until 06/09/2024 Tacrolimus [Mass/volume] in Blood TACROLIMUS/FK-506 BL Lab Routine Aftercare following organ transplant Status post kidney transplant Therapeutic drug monitoring Long-term use of immunosuppressant medication Vitamin D deficiency Secondary hypothyroidism BK viremia 07/23/2023 9:31 AM [employer] [place] [facility] Work Phone: Tacrolimus [Mass/volume] in Blood TACROLIMUS/FK-506 BL Lab Routine Aftercare following organ transplant Status post kidney transplant Therapeutic drug monitoring Long-term use of immunosuppressant medication Vitamin D deficiency Secondary hypothyroidism BK viremia 09/08/2023 9:01 AM [employer] [facility] Work Phone: Tacrolimus [Mass/volume] in Blood TACROLIMUS/FK-506 BL Lab Routine Aftercare following organ transplant Status post kidney transplant Therapeutic drug monitoring Long-term use of immunosuppressant medication Vitamin D deficiency Secondary hypothyroidism BK viremia 01/26/2024 11:03 AM [employer] [facility] Work Phone: Tacrolimus [Mass/volume] in Blood TACROLIMUS/FK-506 BL Lab Routine Aftercare following organ transplant Status post kidney transplant Therapeutic drug monitoring Long-term use of immunosuppressant medication Vitamin D deficiency Secondary hypothyroidism BK viremia 02/09/2024 8:52 AM Nuvilex [facility] Work Phone: Tacrolimus [Mass/volume] in Blood TACROLIMUS/FK-506 BL Lab Routine Aftercare following organ transplant Status post kidney transplant Therapeutic drug monitoring Long-term use of immunosuppressant medication Vitamin D deficiency Secondary hypothyroidism BK viremia 02/23/2024 9:08 AM Nuvilex [facility] Work Phone: Tacrolimus [Mass/volume] in Blood TACROLIMUS/FK-506 BL Lab Routine Aftercare following organ transplant Status post kidney transplant Therapeutic drug monitoring Long-term use of immunosuppressant medication Vitamin D deficiency Secondary hypothyroidism BK viremia 03/09/2024 8:48 AM Nuvilex [facility] Work Phone: Tacrolimus [Mass/volume] in Blood TACROLIMUS/FK-506 BL Lab Routine Aftercare following organ transplant Status post kidney transplant Therapeutic drug monitoring Long-term use of immunosuppressant medication Vitamin D deficiency Secondary hypothyroidism BK viremia 03/22/2024 8:26 AM [facility] Work Phone: Tacrolimus [Mass/volume] in Blood TACROLIMUS/FK-506 BL Lab Routine Aftercare following organ transplant Status post kidney transplant Therapeutic drug monitoring Long-term use of immunosuppressant medication Vitamin D deficiency Secondary hypothyroidism BK viremia 04/05/2024 8:58 AM [facility] Work Phone: End: 05-31-2025 Tacrolimus [Mass/volume] in Blood TACROLIMUS/FK-506 BL Lab Routine Kidney replaced by transplant Immunosuppressive management encounter following kidney transplant Once per month for 12 Occurrences starting 05/31/2024 until 05/31/2025 [facility] Work Phone: Comment on above: Once per month for 1 2 Occurrences starting 05/31/2024 until 05/31/2025 Tacrolimus [Mass/volume] in Blood TACROLIMUS/FK-506 BL Lab Routine Kidney replaced by transplant Immunosuppressive management encounter following kidney transplant 06/14/2024 9:05 AM [facility] Work Phone: Tacrolimus [Mass/volume] in Blood TACROLIMUS/FK-506 BL Lab Routine Kidney replaced by transplant Immunosuppressive management encounter following kidney transplant 06/28/2024 3:03 PM [facility] Work Phone: Tacrolimus [Mass/volume] in Blood TACROLIMUS/FK-506 BL Lab Routine Kidney replaced by transplant Immunosuppressive management encounter following kidney transplant 07/14/2024 9:39 AM [facility] Work Phone: Tacrolimus [Mass/volume] in Blood TACROLIMUS/FK-506 BL Lab Routine Kidney replaced by transplant Immunosuppressive management encounter following kidney transplant 07/26/2024 10:15 AM [facility] Work Phone: Tacrolimus [Mass/volume] in Blood TACROLIMUS/FK-506 BL Lab Routine Kidney replaced by transplant Immunosuppressive management encounter following kidney transplant 08/23/2024 9:43 AM [facility] Work Phone: Tacrolimus [Mass/volume] in Blood TACROLIMUS/FK-506 BL Lab Routine Kidney replaced by transplant Immunosuppressive management encounter following kidney transplant 09/06/2024 10:43 AM [facility] Work Phone: TACROLIMUS/FK-506 BL TACROLIMUS/ FK-506 BL Lab Routine Kidney replaced by transplant Aftercare following organ transplant Therapeutic drug monitoring Benign essential HTN 02/13/2022 10:08 AM [facility] Work Phone: End: 03-31-2023 TACROLIMUS/FK-506 BL TACROLIMUS/FK-506 BL Lab Routine Kidney replaced by transplant Immunosuppressive management encounter following kidney transplant Once per month for 12 Occurrences starting 03/31/2022 until 03/31/2023 [facility] Work Phone: Comment on above: Once per month for 1 2 Occurrences starting 03/31/2022 until 03/31/2023 TACROLIMUS/FK-506 BL TACROLIMUS/ FK-506 BL Lab Routine Kidney replaced by transplant Immunosuppressive management encounter following kidney transplant 04/10/2022 10:06 AM [facility] Work Phone: [facility] Immunizations Immunization Date Immunization Notes Care Provider Fa cili 07-17-2019 influenza virus vacc ine, unspecified formulation [facility] Work Phone: [facility] 09-28-2013 influenza virus vacc ine, unspecified formulation [facility] Work Phone: [facility] 09-27-2012 influenza virus vacc ine, unspecified formulation [facility] Work Phone: [facility] 2010 pneumococcal polysaccharide vaccine, 23 valent [facility] Work Phone: [facility] 09-23-2009 novel influenza-H1N1 -09, all formulations [facility] Work Phone: [facility] 09-05-2009 influenza virus vacc ine, unspecified formulation [facility] Work Phone: [facility] 07-17-2008 influenza virus vacc ine, unspecified formulation [facility] Work Phone: [facility] Work Phone: 10-17-2005 pneumococcal polysaccharide vaccine, 23 valent [facility] Work Phone: [facility] 09-22-2005 tuberculin skin test ; purified protein derivative solution, intradermal Injection Wstr Work Phone: [facility] Payers Date Payer Category Payer Private Health Insurance [facility] CHOICE PLUS [id number] 2023-Present [phone] [address] [place] [address] O [id number] 2023 Unknown [id number] 2023 Unknown [id number] 2022 Medicare [id number] 2021 Unknown [employer] PPO [id number] 2021-Present [phone] [address] [place] [address] PPO [id number] 2021 Unknown [employer]UE [employer] PPO [id number] 2021-Present [phone] [address] [place] [address] PPO [id number] 2021 Unknown [id number] 2005 Medicare MEDICARE MEDICAR E A AND B [id number] 2005-Present [phone] [address] [address] [place] [address] Medicare [id number] 2005 Medicare MEDICARE MEDICAR E A AND B [id number] 2005-Present [phone] [place] [address] Medicare [id number] 2005 Medicare [id number] 1974 Unknown [id number] 1974 Unknown [id number] 1974 Unknown [id number] Social History Date Type Detail Facility Start: 07-09-2011 End: 12-11-2022 Tobacco smoking status NHIS Never smoked tobacco [facility] Start: 07-04-2021 End: 06-28-2024 Alcohol intake Current non-drinker of alcohol (finding) [facility] Start: 07-04-2021 End: 04-29-2023 Alcohol intake [facility] Start: 1975 Sex Assigned At Not on file [facility] Start: 01-19-2022 End: 07-17-2022 Exposure to SARS-CoV-2 (event) Not sure [facility] Start: 07-09-2011 End: 12-11-2022 Tobacco use and exposure Smokeless tobacco non-user [facility] Sex Assigned At Sex [facility] Start: 01-15-2019 End: 04-29-2023 Tobacco use panel [facility] PHQ2 Score 0 [facility] Start: 09-01-2024 End: 09-06-2024 Alcoholic beverage intake Current drinker of alcohol (finding) [facility] Start: 09-01-2024 Alcohol Comment social [facility] Medical Equipment Procedure Code Equipment Code Equipment Origin al Text Equipment Identifier Dates Cement Simplex P Bone Radiopaque Full Dose - [id number] Start: 12-02-2018 Post 12mm Fixati on Taper Sterile - [id number] Start: 12-02-2018 Insert Unicap Classic Offset Low Profile Taper Titanium Cocr 10x3mm - [id number] Start: 12-02-2018 Stent Uret 5mm 8-20cm [facility] - [id number] Start: 01-05-2012 Comment on above: Description: Prashanth renal transplant stent set wire guide with hydrophilic coating Clinical Notes 02-22-2015 to 09-06-2024 Olga Goyal LPN - 09/06/2024 11:08 AM EDTBClementina herzog APRN.SALES FLOOR TEAM LEADER - 09/06/2024 9:30 AM EDTPatient Odessa Chandra APRN.SALES FLOOR TEAM LEADER - 09/01/2024 7:27 PM EDTPatient InstructionsLaboratory Note Date & Type Note Facility 09-06-2024 History of Present illness Narrative Treatment parameter not met, hgb 10.2. Injection deferred. Olga Goyal LPN documented in this encounter [facility] 09-06-2024 History of Present illness Narrative HISTORY AND PHYSICAL Ashok Aguirre Komal : 1975 REFERRING PHYSICIAN: Schuyler Abrams [address] [facility] [address] CHIEF COMPLAINT: Patient presents with: Consult: Colonoscopy consultation. HPI: Ashok is a 48 year old female referred for endoscopy. 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 History of renal transplant, 2nd one 12/2011. Due for screening colonoscopy. Ashok denies abdominal pain. Ashok notes occasional diarrhea. Contributes it to transplant meds, not exactly diarrhea, stools are just soft. Ashok denies constipation. Ashok denies a change in bowel habits. Ashok denies melena. Ashok denies bright red blood per rectum. Ashok denies hemorrhoids. Ashok notes a distant history of heartburn. Symptoms well controlled with Pepcid daily. Ashok denies dysphagia. Ashok denies a history of ulcers/ peptic ulcer disease. Ashok denies family history of colon issues. Ashok follows with nephrology last OV 06/2024. Getting Aranesp injections for anemia. Takes Prograf & Cellcept. Ashok has not undergone prior endoscopy. Current Outpatient Medications Medication Sig tacrolimus IR (PROGRAF) 1 mg capsule TAKE 2 CAPSULES IN AM AND 3 CAPSULES IN PM furosemide (LASIX) 20 mg tablet TAKE 1 TABLET BY MOUTH DAILY NEEDED FOR EDEMA. famotidine (PEPCID) 20 mg tablet take 1 tablet by mouth twice a day predniSONE (DELTASONE) 5 mg tablet take 1 tablet by mouth every day carvedilol (COREG) 12.5 mg tablet Take 1 tablet by mouth two times a day. amLODIPine (NORVASC) 10 mg tablet take 1 tablet by mouth every day mycophenolate mofetil (CELLCEPT) 250 mg capsule TAKE 2 CAPSULES BY MOUTH TWICE DAILY. albuterol HFA (PROVENTIL HFA, VENTOLIN HFA) 90 mcg/actuation inhaler Inhale 2 Puffs as instructed every 4 hours as needed for wheezing/shortness of breath. allopurinol (ZYLOPRIM) 100 mg tablet Take 2 tablets by mouth once daily. simvastatin (ZOCOR) 20 mg tablet TAKE 1 TABLET BY MOUTH EVERY DAY levothyroxine (SYNTHROID) 50 mcg tablet TAKE 1 TABLET BY MOUTH EVERY DAY 0.9 % sodium chloride (0.9% NACL) Access implanted vascular access device [...] heparin allergy). De-access port on treatment completion. Multivitamin capsule Take 1 capsule by mouth once daily. PROGESTERONE MISC 1 capsule. Daily cholecalciferol (VITAMIN D3) 50 mcg (2,000 unit) tablet Take 2,000 Units by mouth as needed. DARBEPOETIN IRLANDA IN ALBUMN ODELL (ARANESP INJECTION) by INJECTION(UNSPECIFIED PARENTERAL ROUTES) route. Biotin 10,000 mcg cap Take 1 capsule by mouth as needed. Ferrous Sulfate (IRON) 325 mg (65 mg iron) tablet Take 1 tablet by mouth twice daily. No current facility-administered medications for this visit. ALLERGIES: Sulfa (Sulfonamide Antibiotics) 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 Corpus luteum cyst or hematoma left ovary mass laparascopically biopsied 2002; benign corpus luteum Cough jeanna induced Cystitis x1 summer 2004 (presented with fever) End stage renal disease (HCC) End stage renal disease (HCC) Fracture Childhood, L arm; states she 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 Hyperlipidemia 02/22/2015 Legionnaires' disease (HCC) 1996 during SLE flare, serum antigen +, but urine antigen negative; treated anyway Malignant neoplasm of other specified sites of uterine adnexa 2001 open resection right ovary; suspicious lymphadenopathy and PET results led to lap node sampling end 2001 with negative results; no chemo/XRT; no PET or CT scans for awhile Nephritis and nephropathy, not specified as acute or chronic, with other specified pathological lesion in kidney, in diseases classified elsewhere 1996 nephrotic/nephritic, biopsy Class III treated wt steroids; biopsy 1997 Class Vb; ? Class IV (received CTX); 2000 and 2001 (? 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; quiescent Type II or unspecified type diabetes mellitus without mention of complication, not stated as uncontrolled steroid induced; also had probably steroid psychosis with high dose Unspecified hypertensive heart and kidney disease without heart failure and with chronic kidney disease stage V or end stage renal disease(404.92) Unspecified hypothyroidism PAST SURGICAL HISTORY Procedure Laterality Date PAST SURGICAL HISTORY OF right oophorectomy, left ovarian biopsy; multiple kidney biopsies; paraaortic and axillary lymph node sampling PAST SURGICAL HISTORY OF 2002, 2003 lymph node biopsies PAST SURGICAL HISTORY OF 2006 peritoneal dialysis cath placement PAST SURGICAL HISTORY OF 2005 AVF, AV graft PAST SURGICAL HISTORY OF 01/05/2012 Kidney transplant PAST SURGICAL HISTORY OF Left 09/2018 knee scope and removal loose body TRANSPLANT KIDNEY W/WO DOP 12/31/2006 FAMILY HISTORY Problem Relation Age of Onset Hypertension Mother Hypertension Father Diabetes Father Ischemic Heart Disease Father Stroke Father Social History Tobacco Use Smoking status: Never Smokeless tobacco: Never Vaping Use Vaping status: Never Used Substance Use Topics Alcohol use: Yes Comment: social Drug use: No REVIEW OF SYMPTOMS: REVIEW OF SYSTEMS: General: The patient + fatigue, denies weight loss, denies weight gain, denies feeling hot, and feelings of cold. Eyes: The patient denies glaucoma, denies eye injury/surgery, + glasses or contacts. Ear/Nose/Throat: The patient denies allergies, denies hayfever, denies ear infections, and denies bloody noses. Cardiovascular: The patient denies chest pain, denies heart disease, + high blood pressure, denies high cholesterol, and denies poor circulation. Respiratory: The patient denies tuberculosis, denies pneumonia, denies frequent cough, denies shortness of breath, and denies coughing up blood. Gastrointestinal: The patient denies difficulty swallowing, denies acid reflux, denies ulcers, denies jaundice/hepatitis, denies gallbladder problems, denies vomiting, denies black or tarry stools, denies hemorrhoids, denies bleeding from rectum, denies diverticulitis, denies constipation, denies diarrhea, denies loss of stool control, and denies hernias. Kidney/Bladder: The patient denies kidney stones, denies urine infections, and denies bloody urine, +kidney transplant. Skin: The patient denies a history of skin cancer, denies bleeding/changing moles, and denies a history of skin rash. Neurologic: The patient denies a history of epilepsy/convulsions, denies headaches, denies head/spinal injuries, and denies stroke/TIA. Psychiatric: The patient denies psychiatric medications, denies depression, and denies voices. Endocrine: The patient + thyroid disorders, + diabetes, and denies hormonal problems. Hematologic: The patient denies a history of bruising, denies bleeding, and + anemia. Infections: The patient denies a history of measles and mumps, denies rheumatic fever, and denies sexually transmitted diseases. Musculoskeletal: The patient denies back pain/injury, denies back problems, denies sciatica, denies knee/foot trouble, denies arthritis, or + gout. PHYSICAL EXAMINATION: General: The patient is 48 year old, female well nourished, well hydrated in no acute distress. The patient is oriented to time, place, and person. VITALS: Blood pressure 155/101, pulse 79, temperature 36.6 C (97.8 F), height 160 cm (5' 3 ), weight 60.9 kg (134 lb 3.2 oz), SpO2 100%. Body mass index is 23.77 kg/m . HEENT: Normal cephalic, ataumatic, pupils are equally round, sclera are anicteric, mucous membranes are moist, oropharynx is clear. Neck has no masses, asymmetry or lymphadenopathy. Respiratory: Clear to auscultation and percussion. Normal respiratory excursion and pattern. Cardiac: Examination is regular rate and rhythm. Normal S1/S2 Abdominal exam: Soft, nontender, with no palpable masses. No hepatosplenomegaly. No palpable hernias. Extremities: no clubbing, cyanosis or edema. No adenopathy. LABORATORY VALUES: As Noted RADIOLOGIC STUDIES: As Noted Assessment IMPRESSION: screen for colon cancer, history of kidney transplant PLAN: I have reviewed my findings with the surgeon. Will plan for lower endoscopy. We discussed the risks and benefits of the planned endoscopy. I have informed the patient that complications can occur including failure to complete the endoscopy and perforation. Ashok had the opportunity to ask questions concerning the planned endoscopy. My staff has also explained the procedure to the patient in understandable terms and has given the patient printed material concerning the procedure. Ashok freely consents to surgery. I plan to use Golytely bowel preparation Ashok is going to check with her home improvement advisor for recommendations regarding transplant medications and timing for endoscopy. I have explained to the patient the difference between IV conscious sedation and MAC anesthesia - and I have offered either, according to the patient's wishes. I have explained that with IV conscious sedation there is no anesthesia provider available and therefore there is a limitation of the amount of IV medications that can be given and that the patient may wake up in the middle of the procedure and/or experience pain/discomfort during the procedure. Further discussion was done and the patient was given the opportunity to ask questions and all questions were answered. MAC anesthesia. Ashok states she has had many procedures/sedation. During a kidney biopsy she received twilight and was not sedated well enough. Ashok was counseled that if there are changes in his/her medical condition, to let the office know if surgery should proceed. If there are changes in patient's medical condition from time of this encounter to the day of the procedure that preclude anesthesia, patient may have procedure cancelled for patient's safety. Diagnoses: (Z12.11) Screen for colon cancer (primary encounter diagnosis) (Z94.0) Kidney replaced by transplant Consultation requested by Dr. Abrams for an opinion regarding screening colonoscopy. My final recommendations will be communicated back to the requesting physician by way of shared Medical record or letter to requesting physician via US mail. Portions of this documentation were copied and pasted from previous office visit notes in order to provide a cohesive continuity of the history. The note has been reviewed and edited and updated as necessary. Clementina Silva APRN.TRUDY documented in this encounter [facility] 09-02-2024 Instructions Odessa Ocampo APRN.TRUDY - 09/02/2024 8:01 AM EDT -Rest, Drink plenty of fluids. -Tylenol or motrin as needed. -OTC Mucinex as directed by packaging as needed -Warm liquids, salt water gargles, throat lozenges and sprays. -Follow up with PCP in 5-7 days for ongoing concerns or if symptoms do not improve. -ER for High fever that does not come down with tylenol or motrin, difficulty breathing or swallowing, increased work of breathing, decreased level of consciousness, chest pain or any other concerning symptoms. UPPER RESPIRATORY INFECTIONS Most cases are caused by viruses and most cases are mild, temporary, and harmless. Symptoms can last 2 to 3 weeks and can include: nasal congestion, sore throat, coughing, muscles aches, headaches, nausea, diarrhea, fatigue and fever. Now that you have been examined, if you are not feeling better within 2-3 weeks, please call back. In the meantime, please: 1. Drink plenty of fluids. 2. Get lots of rest. 3. Avoid dehydrants such as caffeine and alcohol. 4. Nasal saline is an effective decongestant and be used frequently throughout the day. 5. To loosen phlegm and help coughing, drink plenty of fluids and using a humidifier. 6. For sore throats, it is ok to use cough drops, throat sprays, or gargling warm salt water. 7. Always cover your mouth when you cough or sneeze, and wash your hands frequently. Avoid crowded areas like shopping centers, movies while you are sick so you don't berry picker a different virus, or infect others. 8. Avoid exposure to cigarettes or fumes. 9. Avoid irritants such as potpourri, dust, perfumes, scented candles and scented sprays 10. Air conditioning is an effective allergen and irritant avoidance strategy in the spring, summer and fall. 11. Honey is an effective cough suppressant. Try one tsp two to three times per day. The below information is from [facility]: Antibiotics Will rarely help an upper respiratory infections. Antibiotics lead to more resistant infections that are harder to treat. There is little to no benefit to taking antibiotics for most acute upper respiratory tract infections. documented in this encounter [facility] 09-01-2024 History of Present illness Narrative Chief Complaint Patient presents with: Cough: Sore throat, raspy cough, low grade temp, ears congested, fatigue x 5 days HPI Patient presents today for concerns for sore throat and URI symptoms x 5 days. She reports that symptoms started on Thursday with a sore throat, sinus congestion, pressure and some drainage. This has resolved. She has had a mild intermittent cough. Throat is sore equally on both sides in which she wanted to ensure that she did not have strep throat. She has had some discomfort in bilateral ears feels like there is possible drainage in them. Denies any recent fever, chills body aches. Denies GI symptoms. 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 Class IV (received CTX); 2000 and 2001 (? 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 HENT: Positive for ear pain and sore throat. Negative for congestion, postnasal drip, rhinorrhea, sinus pressure, sinus pain and sneezing. Respiratory: Positive for cough. Negative for shortness of breath and wheezing. Gastrointestinal: Negative for diarrhea, nausea and vomiting. BP 180/112 Pulse 71 Temp 37.2 C (99 F) Resp 20 Wt 61.3 kg (135 lb 2.3 oz) LMP (LMP Unknown) SpO2 99% BMI 23.94 kg/m Physical Exam Vitals and nursing note reviewed. Constitutional: General: She is not in acute distress. Appearance: Normal appearance. She is not ill-appearing or toxic-appearing. HENT: Head: Normocephalic and atraumatic. Right Ear: Tympanic membrane and ear canal normal. Left Ear: Tympanic membrane and ear canal normal. Nose: No congestion or rhinorrhea. Right Sinus: No maxillary sinus tenderness or frontal sinus tenderness. Left Sinus: No maxillary sinus tenderness or frontal sinus tenderness. Mouth/Throat: Lips: [place]. Mouth: Mucous membranes are moist. Pharynx: Oropharynx is clear. Uvula midline. Posterior oropharyngeal erythema (mild) present. No pharyngeal swelling, oropharyngeal exudate or uvula swelling. Tonsils: No tonsillar exudate or tonsillar abscesses. 1+ on the right. 1+ on the left. Cardiovascular: Rate and Rhythm: Normal rate and regular rhythm. Heart sounds: Normal heart sounds. Pulmonary: Effort: Pulmonary effort is normal. No respiratory distress. Breath sounds: Normal breath sounds. No decreased breath sounds, wheezing, rhonchi or rales. Comments: No cough appreciated Lymphadenopathy: Cervical: No cervical adenopathy. Skin: General: Skin is warm and dry. Neurological: Mental Status: She is alert. Psychiatric: Mood and Affect: Mood normal. Behavior: Behavior is cooperative. Diagnostics reviewed Office Visit on 09/01/2024 Component Date Value Ref Range Status Strep A (POCT) 09/01/2024 Negative Negative Final Procedural Control 09/01/2024 Valid Final Assessment and Plan 1. Viral URI with cough - ICD9: 465.9, ICD10: J06.9 Clinically stable and well appearing. Lungs are clear to auscultation bilaterally. There is mild pharyngeal erythema. No concerns for peritonsillar abscess or retropharyngeal abscess at this time. - STREP A MOLECULAR (POC) negative. - Discussed viral etiology and rationale for treatment. - Symptomatic treatment with prn analgesia - Supportive care with fluids and rest - The patient may also use OTC cough and cold meds as needed, warm salt water gargles, throat lozenges and/or OTC throat spray as needed. . - Follow up in 5-7 days if symptoms persist or sooner if worsening of symptoms -ER for High fever that does not come down with tylenol or motrin, difficulty breathing or swallowing, increased work of breathing, decreased level of consciousness, chest pain or any other concerning symptoms. Odessa Ocampo APRN.[employer]ADER documented in this encounter [facility] 09-01-2024 History of Present illness Narrative Diagnoses: 1) Anemia secondary to CKD, SLE and LOUISE. 2) Neutropenia secondary to SLE. Underwent second renal transplant 01/05/2012. Had left knee arthroscopy 09/2018. Subsequent partial replacement 12/02/2018. Complicated by cellulitis for which she is on doxycycline. No recurrent fever or chills. Presents for ongoing hematologic management. Interim history: She has been feeling well. Has no complaints today. Has generalized fatigue. PMH, medications and allergies as below personally reviewed by me today. Any changes documented in appropriate section. ROS: The complete 10 point review of systems is noncontributory. PHYSICAL EXAM: Vitals: Blood pressure 148/91, pulse 65, temperature 36.6 C (97.9 F), temperature source Temporal, weight 60.8 kg (134 lb), SpO2 100%. Well-appearing and in no acute distress. EYES: Sclerae are anicteric bilaterally. LYMPHATIC: There is no palpable cervical or supraclavicular adenopathy. RESPIRATORY: Inspiratory breath sounds are of normal intensity in all marquez. No wheezes or rhonchi. CARDIOVASCULAR: Rhythm is regular. Normal intensity S1/S2. There is no gallop or murmur. ABD: Nondistended. Soft and nontender. No hepatomegaly or spinal megaly. Extremities: No edema. Derm: No rash, ecchymoses or petechiae. ASSESSMENT/PLAN: (N18.4, D63.1) Anemia in stage 4 chronic kidney disease (HCC) (primary encounter diagnosis) Assessment: -She's been tolerating and responding very well to CORINNA therapy for her history of chronic anemia secondary to lupus as well as chronic kidney disease. -More symptomatic when hemoglobin declines under 10 grams per deciliter. -Sees Dr. Morales (neonatal nurse) in [place]--up to date on mammogram. -Has not yet had screening colonoscopy. I recommended it based on age and chronic immunosuppression. -We also talked about the importance of dermatologic surveillance in the setting of chronic immunosuppression. She is established with [facility] dermatology. Plan: -Continue monitoring CBC with Aranesp administration for hemoglobin under 10.0 g/dL. -Decrease oral iron to once daily. -Recheck iron. -Referral for screening colonoscopy. Portions of this documentation were copied and pasted from previous office visit notes in order to provide a cohesive continuity of the history. The note has been reviewed and edited and updated as necessary. I spent a total of 20 minutes on the date of the service which included preparing to see the patient, [id number] patient care, completing clinical documentation, obtaining and/or reviewing separately obtained history, performing a medically appropriate examination, counseling and educating the patient/family/caregiver, ordering medications, tests, or procedures, and communicating results to the patient/family/caregiver. Schuyler Abrams DO documented in this encounter [facility] 08-23-2024 History of Present illness Narrative Aranesp injection deferred, treatment parameters not met, Hgb 10.2. Olga Goyal LPN documented in this encounter [facility] 08-09-2024 Nurse Note Injection deferred, parameters not met HGB 10.6 Lyndsey Preston LPN [facility] 08-09-2024 Nurse Note Injection deferred, parameters not met HGB 10.6 Lyndsey Preston LPN documented in this encounter [facility] 08-09-2024 History of Present illness Narrative Patient is here for IVAD port flush/blood draw per [facility] protocol. IVAD is located in right upper chest. Site cleansed with Chloraprep IVAD accessed with a #20 gauge 3/4 non-coring Gripper needle Flush with 5cc's Normal Saline. Blood Return: Good. 10 cc's blood aspirated and discarded. Blood drawn for CBC. Flushed with: 20 ml Normal Saline. Non-coring needle removed. Paper tape applied to puncture site. Site negative for redness, edema or tenderness. Patient tolerated procedure well. documented in this encounter [facility] 08-04-2024 Telephone encounter Note Scheduled with patient [facility] Work Phone: 08-04-2024 Miscellaneous Notes Scheduled with patient PSS- please contact patient to schedule an est complex OV with Dr. Abrams. Jenny Otero LPN Pt. States she has not seen silverer in several years. Since her transplant the medication she is on suppresses her Lupus symptoms, so Dr. Nguyen just kind of monitors her. Lyndsey Preston LPN Detailed message left on identified voicemail to contact our office. Dr. Abrmas wondering if she see's a silverer on a routine basis? Lyndsey Preston LPN She has a history of lupus. Is she seeing a silverer on a regular basis? Schuyler Abrams DO Does she need a F/U apt? Had iron studies 07/14: Ferritin 857.0 Iron 64 TIBC 210 Transferrin 30.5 Has been needing her Retacrit more often the past few months. Olga Goyal LPN documented in this encounter [facility] 08-04-2024 Telephone encounter Note PSS- please contact patient to schedule an est complex OV with Dr. Abrams. Jenny Otero LPN [facility] 08-04-2024 Telephone encounter Note Pt. States she has not seen silverer in several years. Since her transplant the medication she is on suppresses her Lupus symptoms, so Dr. Nguyen just kind of monitors her. Lyndsey Preston LPN [facility] 07-26-2024 Telephone encounter Note Detailed message left on identified voicemail to contact our office. Dr. Masci wondering if she see's a silverer on a routine basis? Lyndsey Preston LPN [facility] 07-26-2024 Telephone encounter Note She has a history of lupus. Is she seeing a silverer on a regular basis? Schuyler Abrams DO [facility] 07-26-2024 Telephone encounter Note Does she need a F/U apt? Had iron studies 07/14: Ferritin 857.0 Iron 64 TIBC 210 Transferrin 30.5 Has been needing her Retacrit more often the past few months. Olga Goyal LPN [facility] 07-26-2024 History of Present illness Narrative Pt here for injection of Retacrit. Given SQ in right arm. Pt tolerated well. Olga Goyal LPN documented in this encounter [facility] 07-14-2024 Nurse Note Hgb 10.1. Injection deferred. Jenny Otero LPN [facility] 07-14-2024 Nurse Note Hgb 10.1. Injection deferred. Jenny Otero LPN documented in this encounter [facility] 06-29-2024 Telephone encounter Note Pt notified via [employer]. Added to lab apt. Pended. Olga Goyal LPN [facility] 06-29-2024 Miscellaneous Notes Pt notified via [employer]. Added to lab apt. Pended. Olga Goyal LPN Check iron studies on next here. documented in this encounter [facility] 06-28-2024 Telephone encounter Note Check iron studies on next here. [facility] 06-28-2024 Nurse Note Retacrit injection administered left arm, tolerated well, no immediate adverse reactions noted. Jenny Otero LPN [facility] 06-28-2024 Nurse Note Retacrit injection administered left arm, tolerated well, no immediate adverse reactions noted. Jenny Otero LPN documented in this encounter [facility] 06-28-2024 History of Present illness Narrative Patient is here for IVAD port flush/blood draw. IVAD is located in right upper chest. Site cleansed with Chloraprep IVAD accessed with a #20 gauge 3/4 non-coring Gripper needle Flush with 10cc's Normal Saline. Blood Return: Good. 10 cc's blood aspirated and discarded. Blood drawn for CBC, CMP, and tac, uric acid. Flushed with: 20 ml Normal Saline. Non-coring needle removed. Paper tape applied to puncture site. Site negative for redness, edema or tenderness. Patient tolerated procedure well. Jocelyn Jose RN documented in this encounter [facility] 06-28-2024 History of Present illness Narrative Department [facility] June 28, 2024 CC: KTXP FU Portions of this note were copied forward from the last encounter in this office to ensure historical accuracy. Changes were made to accurately reflect updated history, physical exam, and medical decision making. HPI This is a 48 year old female who presents for follow up of a DD kidney transplant #2. Transplant 1: 12/2006 DD 0 mm import CMV +/+, thymo induction, innitially pred free Transplant 2 01-05-12 CMV status: -/+, simulect induction Base line Scr 1.5-1.8 Donor kidney age/gender: 46 Yr old MALE Original Disease: LUPUS Protocol Bx: NA 3-6 mo: 04/07/12 Transplant [...] 3. DD RTXP 0 mismatch (import from [place]; 48 yo male, COD: stroke) (D+/R+). Thymo [...] SCD CMV D+/R+ 10. AVN left knee 11, Recurrent Gout 12 ECOLI UTI 02/2015 13. Pyelo 01/2020 14 COVID 2021 14. Shingles C2 dermatome 11/2023 Interval: - fatigue - no recent lupus flares BP 144/90 (BP Site: Left Arm, BP Position: Sitting, BP Cuff Size: Regular Adult) Pulse 75 Ht 160 cm (5' 3 ) Wt 63.5 kg (139 lb 15.9 oz) LMP (LMP Unknown) BMI 24.80 kg/m BP cuff size: regular adult Creatinine (mg/dL) Date Value 06/14/2024 1.87 05/31/2024 1.95 05/03/2024 2.10 01/02/2022 1.55 12/05/2021 1.44 11/21/2021 1.48 BUN (mg/dL) Date Value 06/14/2024 42 05/31/2024 44 05/03/2024 47 01/02/2022 46 12/05/2021 44 11/21/2021 43 Potassium (mmol/L) Date Value 06/14/2024 4.0 05/31/2024 4.2 05/03/2024 4.2 01/02/2022 4.2 12/05/2021 4.1 11/21/2021 4.3 WBC (k/uL) Date Value 06/14/2024 3.92 05/31/2024 3.85 05/03/2024 3.35 01/02/2022 4.42 12/05/2021 4.56 11/21/2021 3.83 Hemoglobin (g/dL) Date Value 06/14/2024 9.5 05/31/2024 10.2 05/03/2024 9.6 01/02/2022 10.8 12/05/2021 11.1 11/21/2021 10.2 Hematocrit (%) Date Value 06/14/2024 29.4 05/31/2024 30.5 05/03/2024 29.0 01/02/2022 31.9 12/05/2021 33.0 11/21/2021 30.4 Platelet Count (k/uL) Date Value 06/14/2024 163 05/31/2024 169 05/03/2024 207 01/02/2022 173 12/05/2021 155 11/21/2021 172 Calcium (mg/dL) Date Value 01/02/2022 9.5 12/05/2021 10.2 11/21/2021 9.3 Calcium, Total (mg/dL) Date Value 06/14/2024 9.8 05/31/2024 9.7 05/03/2024 9.9 PTH, Intact (pg/mL) Date Value 07/23/2023 66 11/24/2018 110 10/13/2018 77 09/22/2018 83 Phosphorus (mg/dL) Date Value 05/31/2024 4.1 05/03/2024 3.5 04/05/2024 3.5 01/02/2022 3.3 12/05/2021 3.5 11/21/2021 3.5 Lipase (U/L) Date Value 02/22/2015 25 01/24/2012 19 Vitamin D 25 Hydroxy (ng/mL) Date Value 07/23/2023 39.7 11/24/2018 36.9 10/13/2018 32.8 09/22/2018 37.0 Tacrolimus/FK506 (ng/mL) Date Value 06/14/2024 4.6 05/31/2024 6.7 05/03/2024 4.4 01/02/2022 14.3 12/05/2021 5.5 11/21/2021 6.7 Sirolimus/Rapamune (ng/mL) Date Value 03/08/2007 <1.0 02/08/2007 <1.0 No results found for: EVERO Cholesterol, Total (mg/dL) Date Value 05/23/2021 242 06/18/2016 127 04/22/2016 145 HDL Cholesterol (mg/dL) Date Value 05/23/2021 45 06/18/2016 31 04/22/2016 36 LDL Cholesterol (mg/dL) Date Value 05/23/2021 159 06/18/2016 60 04/22/2016 80 Triglyceride (mg/dL) Date Value 05/23/2021 188 06/18/2016 180 04/22/2016 147 No results found for: PROTTIMED Protein, Urine Random (mg/dL) Date Value 07/13/2014 6 10/03/2013 21 06/27/2013 20 01/31/2013 28 07/26/2012 39 03/18/2012 65 Creatinine, Ur Random (UCRR) (mg/dL) Date Value 07/13/2014 25.9 10/03/2013 155.6 06/27/2013 142.5 01/31/2013 169.5 07/26/2012 167.0 03/18/2012 194.3 Impression: 48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, s/p KTXP x 2, most recent 01/05/2012 baseline is reduced GFR 1.5-2.0 creatinine Historically not much proteinuria TAC/MMF/P based regimen Tacrolimus/FK506 (ng/mL) Date Value 06/14/2024 4.6 05/31/2024 6.7 05/03/2024 4.4 04/05/2024 5.7 01/02/2022 14.3 12/05/2021 5.5 11/21/2021 6.7 11/07/2021 6.9 Anemia/leukopenia- managed by her Hematology team Recently had a dose of aranesp Plan: - continue to monitor kidney function - ordered uric acid level to assess chronic need for allopurinol - educated patient about how to take BP at home and will send the measurements back to assess possibility of reducing ant-hypertensive drugs This patients medical condition requires monitoring for maintenance of allograft function, prevention of rejection, therapeutic drug management, and monitoring and treating associated comobidities, requires medical decision making of high complexity. Edgardo Nguyen MD documented in this encounter [facility] 06-14-2024 History of Present illness Narrative Pt here for injection of retacrit. Given SQ in right arm. Pt tolerated well. Olga Goyal LPN documented in this encounter [facility] 06-14-2024 History of Present illness Narrative Patient is here for IVAD port flush/blood draw per [facility] protocol. IVAD is located in right upper chest. Site cleansed with Chloraprep IVAD accessed with a #20 gauge 3/4 non-coring Gripper needle Flush with 5cc's Normal Saline. Blood Return: Good. 10 cc's blood aspirated and discarded. Blood drawn for CBC and CMP. Flushed with: 20 ml Normal Saline. Non-coring needle removed. Paper tape applied to puncture site. Site negative for redness, edema or tenderness. Patient tolerated procedure well. documented in this encounter [facility] 05-31-2024 Nurse Note Injection deferred, parameters not met HGB 10.2 Lyndsey Preston LPN [facility] 05-31-2024 Nurse Note Injection deferred, parameters not met HGB 10.2 Lyndsey Preston LPN documented in this encounter [facility] 05-03-2024 Nurse Note Patient presents with: Imm/Inj Pt is identified by name and birthdate: Yes. Allergies and medications reviewed. Latex allergy? No. Does this patient have: Unplanned weight loss or gain of greater than 10 pounds, or a change of appetite over the last year? No Does the patient have any concerns about safety in the home/falls? Not at risk for falls Has the patient fallen in the past year? No Does the patient have difficulty performing or completing routine daily living activities? No Does this patient have concerns about personal safety? No Is patient having pain? Pain: No=0 (pain 0 on a scale of 0-10). Health Maintenance: Reviewed and updated. Does patient have MyChart access or Caregiver proxy: yes Pt/Caregiver willingness and readiness to learn assessed: Yes. Barriers: none Retacrit injection administered, tolerated well, no immediate adverse reactions noted. Left arm, Lyndsey Preston LPN [facility] 05-03-2024 Nurse Note Patient presents with: Imm/Inj Pt is identified by name and birthdate: Yes. Allergies and medications reviewed. Latex allergy? No. Does this patient have: Unplanned weight loss or gain of greater than 10 pounds, or a change of appetite over the last year? No Does the patient have any concerns about safety in the home/falls? Not at risk for falls Has the patient fallen in the past year? No Does the patient have difficulty performing or completing routine daily living activities? No Does this patient have concerns about personal safety? No Is patient having pain? Pain: No=0 (pain 0 on a scale of 0-10). Health Maintenance: Reviewed and updated. Does patient have MyChart access or Caregiver proxy: yes Pt/Caregiver willingness and readiness to learn assessed: Yes. Barriers: none Retacrit injection administered, tolerated well, no immediate adverse reactions noted. Left arm, Lyndsey Preston LPN documented in this encounter [facility] 04-05-2024 History of Present illness Narrative Aranesp injection deferred, treatment parameter not met. Hgb 10.0. Olga Goyal LPN documented in this encounter [facility] 04-05-2024 History of Present illness Narrative Patient is here for IVAD port flush/blood draw. IVAD is located in right upper chest. Site cleansed with Chloraprep IVAD accessed with a #20 gauge 3/4 non-coring Gripper needle Flush with 5cc's Normal Saline. Blood Return: Good. 10 cc's blood aspirated and discarded. Blood drawn for CBC, BMP, and tac level. Flushed with: 20 ml Normal Saline. Non-coring needle removed. Paper tape applied to puncture site. Site negative for redness, edema or tenderness. Patient tolerated procedure well. Jocelyn Jose RN documented in this encounter [facility] 03-22-2024 History of Present illness Narrative Retacrit injection deferred, treatment parameter not met, Hgb 10.1 . Olga Goyal LPN documented in this encounter [facility] 03-15-2024 History of Present illness Narrative This note was created using NoteWriter. Subjective Ashok Sauceda is a 48 year old female. 48 year old female with PMH HTN, hyperlipidemia, DM, thyroid, anemia, SLE presents for spot on back Acute awareness today Endorses that the [facility] CAPTAIN who provides her with Testerone injections noted today that patient Spot on back She was recommenced to follow up [facility] She has an appt tomorrow with [facility], citing that she is a patient there. She is unsure of whether the spot has been there or not, citing she cannot visualize her lower back She denies pain Denies fever or chills Denies malaise or fatigue The history is provided by the patient. No spanish language lecturer was used. Illness The current episode started today. The onset is undetermined. The problem occurs continuously. The problem has been unchanged. Nothing relieves the symptoms. Nothing aggravates the symptoms. Pertinent negatives include no fever, no diarrhea, no vomiting, no congestion, no ear discharge, no ear pain, no headaches, no sore throat, no swollen glands, no muscle aches, no cough, no wheezing and no rash. Recently, medical care has been given by a specialist. 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 Corpus luteum cyst or hematoma left ovary mass laparascopically biopsied 2002; benign corpus luteum Cough jeanna induced Cystitis x1 summer 2004 (presented with fever) End stage renal disease (HCC) End stage renal disease (HCC) Fracture Childhood, L arm; states she 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 Hyperlipidemia 02/22/2015 Legionnaires' disease (HCC) 1996 during SLE flare, serum antigen +, but urine antigen negative; treated anyway Malignant neoplasm of other specified sites of uterine adnexa 2001 open resection right ovary; suspicious lymphadenopathy and PET results led to lap node sampling end of 2001 with negative results; no chemo/XRT; no PET or CT scans for awhile Nephritis and nephropathy, not specified as acute or chronic, with other specified pathological lesion in kidney, in diseases classified elsewhere 1996 nephrotic/nephritic, biopsy Class III treated wt steroids; biopsy 1997 Class Vb; ? Class IV (received CTX); 2000 and 2001 (? 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; quiescent Type II or unspecified type diabetes mellitus without mention of complication, not stated as uncontrolled steroid induced; also had probably steroid psychosis with high dose Unspecified hypertensive heart and kidney disease without heart failure and with chronic kidney disease stage V or end stage renal disease(404.92) Unspecified hypothyroidism PAST SURGICAL HISTORY Procedure Laterality Date PAST SURGICAL HISTORY OF right oophorectomy, left ovarian biopsy; multiple kidney biopsies; paraaortic and axillary lymph node sampling PAST SURGICAL HISTORY OF 2002, 2002 lymph node biopsies PAST SURGICAL HISTORY OF 2006 peritoneal dialysis cath placement PAST SURGICAL HISTORY OF 2006 AVF, AV graft PAST SURGICAL HISTORY OF 01/05/2012 Kidney transplant PAST SURGICAL HISTORY OF Left 09/2018 knee scope and removal loose body TRANSPLANT KIDNEY W/WO DOP 12/31/2006 ALLERGIES Sulfa (Sulfonamide Antibiotics) MEDICATIONS furosemide (LASIX) 20 mg tablet TAKE 1 TABLET BY MOUTH DAILY NEEDED FOR EDEMA. famotidine (PEPCID) 20 mg tablet take 1 tablet by mouth twice a day predniSONE (DELTASONE) 5 mg tablet take 1 tablet by mouth every day carvedilol (COREG) 12.5 mg tablet Take 1 tablet by mouth two times a day. amLODIPine (NORVASC) 10 mg tablet take 1 tablet by mouth every day mycophenolate mofetil (CELLCEPT) 250 mg capsule TAKE 2 CAPSULES BY MOUTH TWICE DAILY. tacrolimus IR (PROGRAF) 1 mg capsule TAKE 2 CAPSULES IN AM AND 3 CAPSULES IN PM albuterol HFA (PROVENTIL HFA, VENTOLIN HFA) 90 mcg/actuation inhaler Inhale 2 Puffs as instructed every 4 hours as needed for wheezing/shortness of breath. allopurinol (ZYLOPRIM) 100 mg tablet Take 2 tablets by mouth once daily. simvastatin (ZOCOR) 20 mg tablet TAKE 1 TABLET BY MOUTH EVERY DAY levothyroxine (SYNTHROID) 50 mcg tablet TAKE 1 TABLET BY MOUTH EVERY DAY 0.9 % sodium chloride (0.9% NACL) Access implanted vascular access device [...] heparin allergy). De-access port on treatment completion. Multivitamin capsule Take 1 capsule by mouth once daily. L gasseri/B bifidum/B longum (PROBIOTIC COLON CARE ORAL) Take 2 capsules by mouth once daily. flaxseed oil (OMEGA 3 ORAL) Take 2 capsules by mouth once daily. PROGESTERONE MISC 1 capsule. Daily folic acid 1 mg tablet Take 1 mg by mouth once daily. cholecalciferol (VITAMIN D3) 50 mcg (2,000 unit) tablet Take 2,000 Units by mouth once daily. DARBEPOETIN IRLANDA IN ALBUMN ODELL (ARANESP INJECTION) by INJECTION(UNSPECIFIED PARENTERAL ROUTES) route. Biotin 10,000 mcg cap Take 1 capsule by mouth once daily. Ferrous Sulfate (IRON) 325 mg (65 mg iron) tablet Take 1 tablet by mouth twice daily. FAMILY HISTORY Problem Relation Age of Onset Hypertension Mother Hypertension Father Diabetes Father Ischemic Heart Disease Father Stroke Father Social History Tobacco Use Smoking status: Never Smokeless tobacco: Never Vaping Use Vaping Use: Never used Substance Use Topics Alcohol use: No Drug use: No Review of Systems Constitutional: Negative for fever. HENT: Negative for congestion, ear discharge, ear pain and sore throat. Respiratory: Negative for cough and wheezing. Gastrointestinal: Negative for diarrhea and vomiting. Skin: Positive for color change. Negative for rash. Neurological: Negative for headaches. Objective BP 153/98 Pulse 66 Temp 36.7 C (98 F) Resp 18 Wt 65 kg (143 lb 4.8 oz) LMP (LMP Unknown) SpO2 100% BMI 25.38 kg/m Physical Exam Vitals and nursing note reviewed. Constitutional: General: She is not in acute distress. Appearance: Normal appearance. She is normal weight. She is not ill-appearing, toxic-appearing or diaphoretic. HENT: Head: Normocephalic and atraumatic. Right Ear: Ear canal and external ear normal. Left Ear: Ear canal and external ear normal. Nose: Nose normal. No congestion or rhinorrhea. Mouth/Throat: Mouth: Mucous membranes are moist. Pharynx: No oropharyngeal exudate or posterior oropharyngeal erythema. Eyes: General: Right eye: No discharge. Left eye: No discharge. Extraocular Movements: Extraocular movements intact. Conjunctiva/sclera: Conjunctivae normal. Pupils: Pupils are equal, round, and reactive to light. Cardiovascular: Rate and Rhythm: Normal rate and regular rhythm. Pulses: Normal pulses. Heart sounds: Normal heart sounds. No murmur heard. No friction rub. Pulmonary: Effort: Pulmonary effort is normal. No respiratory distress. Breath sounds: Normal breath sounds. No stridor. No wheezing, rhonchi or rales. Chest: Chest wall: No tenderness. Abdominal: General: Abdomen is flat. There is no distension. Palpations: Abdomen is soft. There is no mass. Tenderness: There is no abdominal tenderness. There is no right CVA tenderness, left CVA tenderness, guarding or rebound. Hernia: No hernia is present. Musculoskeletal: General: No swelling, tenderness, deformity or signs of injury. Normal range of motion. Cervical back: Normal range of motion and neck supple. No rigidity. Right lower leg: No edema. Left lower leg: No edema. Lymphadenopathy: Cervical: No cervical adenopathy. Skin: General: Skin is warm and dry. Coloration: Skin is not jaundiced or pale. Findings: No bruising, erythema, lesion or rash. Comments: Left lower lumbar region with irregular [place] like depicting mole No abscess. No fluctuation No tenderness No streaking. No crepitus Patient has multiple moles notes to lower lumbar region Neurological: General: No focal deficit present. Mental Status: She is alert and oriented to person, place, and time. Cranial Nerves: No cranial nerve deficit. Sensory: No sensory deficit. Motor: No weakness. Coordination: Coordination normal. Gait: Gait normal. Psychiatric: Mood and Affect: Mood normal. Behavior: Behavior normal. Thought Content: Thought content normal. Judgment: Judgment normal. Assessment and Plan ASSESSMENT/PLAN: 1. Numerous skin moles - ICD9: 216.9, ICD10: D22.9 She is a patient of [facility] She has an appt tomorrow. Discussed concerns with mole would be change in presentation, And need for malignancy screening and biopsy but express care does not screen She will follow up with derm today. Rylie Bear APRN.[employer] TEAM LEADER documented in this encounter [facility] 03-09-2024 History of Present illness Narrative Aranesp injection deferred. Treatment parameters not met. Hgb 10.6. Olga Goyal LPN documented in this encounter [facility] 02-23-2024 Nurse Note Pt here for injection of Retacrit. Given SQ in right arm. Pt tolerated well. Olga Goyal LPN documented in this encounter [facility] 02-09-2024 History of Present illness Narrative Retacrit injection deferred, did not meet treatment parameters, hgb 10.3 Olga Goyal LPN documented in this encounter [facility] 02-09-2024 History of Present illness Narrative Patient is here for IVAD port flush/blood draw per [facility] protocol. IVAD is located in right upper chest. Site cleansed with Chloraprep IVAD accessed with a #20 gauge 3/4 non-coring Gripper needle Flush with 5cc's Normal Saline. Blood Return: Good. 10 cc's blood aspirated and discarded. Blood drawn for CBC. Flushed with: 20 ml Normal Saline. Non-coring needle removed. Paper tape applied to puncture site. Site negative for redness, edema or tenderness. Patient tolerated procedure well. documented in this encounter [facility] 01-26-2024 History of Present illness Narrative Retacrit injection not given, treatment parameter not met, Hgb 10.4. Olga Goyal LPN documented in this encounter [facility] 01-13-2024 History of Present illness Narrative This note was created using [employer]. Subjective Ashok Sauceda is a 48 year old female. 48 year old female with PMH of sinus surgery, SLE, ESRD, s/p kidney transplant on immunosuppressants, HTN, HLD, and hypothyroidism presents today with acute onset sinus pain that started in October. She has an appointment in 4 days with ENT. Pertinent positives include sinus pressure, sinus pain, teeth pain, headache, rhinorrhea with yellow nasal drainage, post nasal drip, sore throat, and productive cough with yellow sputum. Reports dental pain that started a few weeks ago which she states happens when she has a sinus infection. Pertinent negatives include ear pain, ear pressure, fever, body aches, chills, nausea, vomiting, diarrhea, decreased appetite, vision changes, current eye irritation, and shortness of breath. She does not smoke. The history is provided by the patient. Nasal Congestion This is a new problem. The current episode started more than 1 month ago. The problem is unchanged. There has been no fever. The pain is moderate. Associated symptoms include congestion, coughing, headaches, sinus pressure and a sore throat. Pertinent negatives include no chills, ear pain or shortness of breath. Past treatments include oral decongestants and acetaminophen. The treatment provided no relief. 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 Corpus luteum cyst or hematoma left ovary mass laparascopically biopsied 2002; benign corpus luteum Cough jeanna induced Cystitis x1 summer 2004 (presented with fever) End stage renal disease (HCC) End stage renal disease (HCC) Fracture Childhood, L arm; states she 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 Hyperlipidemia 02/22/2015 Legionnaires' disease (HCC) 1996 during SLE flare, serum antigen +, but urine antigen negative; treated anyway Malignant neoplasm of other specified sites of uterine adnexa 2001 open resection right ovary; suspicious lymphadenopathy and PET results led to lap node sampling end 2001 with negative results; no chemo/XRT; no PET or CT scans for awhile Nephritis and nephropathy, not specified as acute or chronic, with other specified pathological lesion in kidney, in diseases classified elsewhere 1996 nephrotic/nephritic, biopsy Class III treated wtih steroids; biopsy 1997 Class Vb; ? Class IV (received CTX); 2000 and 2001 (? 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; quiescent Type II or unspecified type diabetes mellitus without mention of complication, not stated as uncontrolled steroid induced; also had probably steroid psychosis with high dose Unspecified hypertensive heart and kidney disease without heart failure and with chronic kidney disease stage V or end stage renal disease(404.92) Unspecified hypothyroidism PAST SURGICAL HISTORY Procedure Laterality Date PAST SURGICAL HISTORY OF right oophorectomy, left ovarian biopsy; multiple kidney biopsies; paraaortic and axillary lymph node sampling PAST SURGICAL HISTORY OF 2002, 2002 lymph node biopsies PAST SURGICAL HISTORY OF 2005 peritoneal dialysis cath placement PAST SURGICAL HISTORY OF 2006 AVF, AV graft PAST SURGICAL HISTORY OF 01/05/2012 Kidney transplant PAST SURGICAL HISTORY OF Left 09/2018 knee scope and removal loose body TRANSPLANT KIDNEY W/WO DOP 12/31/2006 ALLERGIES Sulfa (Sulfonamide Antibiotics) MEDICATIONS furosemide (LASIX) 20 mg tablet TAKE 1 TABLET BY MOUTH DAILY NEEDED FOR EDEMA. famotidine (PEPCID) 20 mg tablet take 1 tablet by mouth twice a day predniSONE (DELTASONE) 5 mg tablet take 1 tablet by mouth every day carvedilol (COREG) 12.5 mg tablet Take 1 tablet by mouth two times a day. amLODIPine (NORVASC) 10 mg tablet take 1 tablet by mouth every day mycophenolate mofetil (CELLCEPT) 250 mg capsule TAKE 2 CAPSULES BY MOUTH TWICE DAILY. tacrolimus IR (PROGRAF) 1 mg capsule TAKE 2 CAPSULES IN AM AND 3 CAPSULES IN PM albuterol HFA (PROVENTIL HFA, VENTOLIN HFA) 90 mcg/actuation inhaler Inhale 2 Puffs as instructed every 4 hours as needed for wheezing/shortness of breath. allopurinol (ZYLOPRIM) 100 mg tablet Take 2 tablets by mouth once daily. simvastatin (ZOCOR) 20 mg tablet TAKE 1 TABLET BY MOUTH EVERY DAY levothyroxine (SYNTHROID) 50 mcg tablet TAKE 1 TABLET BY MOUTH EVERY DAY 0.9 % sodium chloride (0.9% NACL) Access implanted vascular access device [...] heparin allergy). De-access port on treatment completion. Multivitamin capsule Take 1 capsule by mouth once daily. L gasseri/B bifidum/B longum (PROBIOTIC COLON CARE ORAL) Take 2 capsules by mouth once daily. folic acid 1 mg tablet Take 1 mg by mouth once daily. cholecalciferol (VITAMIN D3) 50 mcg (2,000 unit) tablet Take 2,000 Units by mouth once daily. DARBEPOETIN IRLANDA IN ALBUMN ODELL (ARANESP INJECTION) by INJECTION(UNSPECIFIED PARENTERAL ROUTES) route. Biotin 10,000 mcg cap Take 1 capsule by mouth once daily. Ferrous Sulfate (IRON) 325 mg (65 mg iron) tablet Take 1 tablet by mouth twice daily. amoxicillin-clavulanate potassium (AUGMENTIN) 875-125 mg per tablet Take 1 tablet by mouth two times a day for 7 days. flaxseed oil (OMEGA 3 ORAL) Take 2 capsules by mouth once daily. (Patient not taking: Reported on 01/12/2024) PROGESTERONE MISC 1 capsule. Daily (Patient not taking: Reported on 01/12/2024) FAMILY HISTORY Problem Relation Age of Onset Hypertension Mother Hypertension Father Diabetes Father Ischemic Heart Disease Father Stroke Father Social History Tobacco Use Smoking status: Never Smokeless tobacco: Never Vaping Use Vaping Use: Never used Substance Use Topics Alcohol use: No Drug use: No Review of Systems Constitutional: Negative for activity change, appetite change, chills, fatigue and fever. HENT: Positive for congestion, postnasal drip, rhinorrhea, sinus pressure, sinus pain and sore throat. Negative for ear discharge and ear pain. Dental pain Eyes: Negative for photophobia, pain, discharge, redness, itching and visual disturbance. Respiratory: Positive for cough. Negative for chest tightness and shortness of breath. Gastrointestinal: Negative for diarrhea, nausea and vomiting. Musculoskeletal: Negative for arthralgias and myalgias. Skin: Negative for color change. Neurological: Positive for headaches. Negative for dizziness and light-headedness. Objective BP 142/88 Pulse 80 Temp 36.6 C (97.9 F) Resp 16 Wt 64.4 kg (142 lb) LMP 01/05/2012 SpO2 100% BMI 25.15 kg/m Physical Exam Vitals reviewed. Constitutional: General: She is awake. She is not in acute distress. Appearance: Normal appearance. She is normal weight. She is not ill-appearing, toxic-appearing or diaphoretic. HENT: Head: Normocephalic. Right Ear: Hearing, ear canal and external ear normal. No decreased hearing noted. No laceration, drainage, swelling or tenderness. A middle ear effusion is present. There is no impacted cerumen. No foreign body. No mastoid tenderness. No PE tube. No hemotympanum. Tympanic membrane is not injected, scarred, perforated, erythematous, retracted or bulging. Tympanic membrane has normal mobility. Left Ear: Hearing, ear canal and external ear normal. No decreased hearing noted. No laceration, drainage, swelling or tenderness. A middle ear effusion is present. There is no impacted cerumen. No foreign body. No mastoid tenderness. No PE tube. No hemotympanum. Tympanic membrane is not injected, scarred, perforated, erythematous, retracted or bulging. Tympanic membrane has normal mobility. Nose: No nasal deformity, septal deviation, signs of injury, laceration, nasal tenderness, mucosal edema, congestion or rhinorrhea. Right Nostril: No foreign body, epistaxis, septal hematoma or occlusion. Left Nostril: No foreign body, epistaxis, septal hematoma or occlusion. Right Turbinates: Swollen. Not enlarged or pale. Left Turbinates: Swollen. Not enlarged or pale. Right Sinus: Maxillary sinus tenderness and frontal sinus tenderness present. Left Sinus: Maxillary sinus tenderness and frontal sinus tenderness present. Mouth/Throat: Lips: [place]. No lesions. Mouth: Mucous membranes are moist. Mucous membranes are pale. No injury, lacerations, oral lesions or angioedema. Tongue: No lesions. Palate: No lesions. Pharynx: Oropharynx is clear. Uvula midline. Posterior oropharyngeal erythema present. No pharyngeal swelling, oropharyngeal exudate or uvula swelling. Tonsils: No tonsillar exudate or tonsillar abscesses. 1+ on the right. 1+ on the left. Eyes: General: Lids are normal. No allergic shiner, visual field deficit or scleral icterus. Right eye: No foreign body, discharge or hordeolum. Left eye: No foreign body, discharge or hordeolum. Extraocular Movements: Extraocular movements intact. Right eye: Normal extraocular motion and no nystagmus. Left eye: Normal extraocular motion and no nystagmus. Conjunctiva/sclera: Conjunctivae normal. Right eye: Right conjunctiva is not injected. No chemosis, exudate or hemorrhage. Left eye: Left conjunctiva is not injected. No chemosis, exudate or hemorrhage. Pupils: Pupils are equal, round, and reactive to light. Pupils are equal. Right eye: Pupil is round, reactive and not sluggish. Left eye: Pupil is round, reactive and not sluggish. Cardiovascular: Rate and Rhythm: Normal rate and regular rhythm. Pulses: Normal pulses. Heart sounds: Normal heart sounds, S1 normal and S2 normal. Heart sounds not distant. No murmur heard. No friction rub. No gallop. Pulmonary: Effort: Pulmonary effort is normal. No tachypnea, bradypnea, accessory muscle usage, prolonged expiration or respiratory distress. Breath sounds: Normal breath sounds. No stridor or decreased air movement. No decreased breath sounds, wheezing, rhonchi or rales. Chest: Chest wall: No tenderness. Musculoskeletal: General: Normal range of motion. Cervical back: Normal range of motion and neck supple. No edema, erythema, rigidity or tenderness. Normal range of motion. Lymphadenopathy: Head: Right side of head: No submental, submandibular, tonsillar, preauricular or posterior auricular adenopathy. Left side of head: No submental, submandibular, tonsillar, preauricular or posterior auricular adenopathy. Cervical: No cervical adenopathy. Right cervical: No superficial, deep or posterior cervical adenopathy. Left cervical: No superficial, deep or posterior cervical adenopathy. Skin: General: Skin is warm and dry. Capillary Refill: Capillary refill takes less than 2 seconds. Findings: No rash. Neurological: General: No focal deficit present. Mental Status: She is alert and oriented to person, place, and time. Mental status is at baseline. Sensory: No sensory deficit. Motor: No weakness. Coordination: Coordination normal. Gait: Gait normal. Psychiatric: Mood and Affect: Mood normal. Behavior: Behavior normal. Behavior is cooperative. Thought Content: Thought content normal. Judgment: Judgment normal. Assessment and Plan ASSESSMENT/PLAN: 1. Rhinosinusitis - ICD9: 473.9, ICD10: J32.9 - Acute onset sinus pain for over 2 months. Rhinorrhea, post nasal drip, and productive cough. Denies fever, fatigue, body aches and chills. - On immunosuppressants s/p kidney transplant - LCTA, afebrile in office, bilateral middle ear effusions, frontal and maxillary sinus tenderness, no lymphadenopathy, erythematous pharynx - Will begin treatment with Augmentin 875 mg PO BID for 7 days - Supportive care with plenty of fluids, rest, and analgesia prn. - Follow-up with ENT- appointment on Thursday [facility] TEACHING PROVIDER (Physician/PA/SECURITIES CLERK) NOTE OF PERSONAL INVOLVEMENT IN CARE: I have personally seen and examined the patient and performed the medical decision-making components. I have reviewed the Advanced Practice Registered Nurse (SECURITIES CLERK) Student's documentation and verified the findings in the note as written. Any additions or changes are noted in bold/italics. Signature: Rylie Bear Date: 01/13/2024 Time: 11:02 AM documented in this encounter [facility] 01-12-2024 History of Present illness Narrative Pt here for injection of Aranespt. Given SQ in left arm. Pt tolerated well. Olga Goyal LPN documented in this encounter [facility] 01-07-2024 Miscellaneous Notes Port draw scheduled as directed. Odessa Cormier Pt. HGB today was 9.7 Before medicare will approve pt. Needs iron studies. She will be in tomorrow morning to have the iron done. Once we have results and auth pt. Will come in and get Aranesp injection. Dr. Abrams Please sign pended orders Lyndsey Preston LPN' PSS please put on port schedule for iron studies 01/08 @ 9:30 am. Pt. Aware Lyndsey Preston LPN documented in this encounter [facility] 12-29-2023 History of Present illness Narrative [facility] Follow up December 03, 2021 CC: KTXP FU Portions of this note were copied forward from the last encounter in this office to ensure historical accuracy. Changes were made to accurately reflect updated history, physical exam, and medical decision making. HPI This is a 48 year old female who presents for follow up of a DD kidney transplant #2. Transplant 1: 12/2006 DD 0 mm import CMV +/+, thymo induction, innitially pred free Transplant 2 01-05-12 CMV status: -/+, simulect induction Base line Scr 1.5-1.8 Donor kidney age/gender: 46 Yr old MALE Original Disease: LUPUS Protocol Bx: NA 3-6 mo: 04/07/12 Transplant [...] 3. DD RTXP 0 mismatch (import from [place]; 48 yo male, COD: stroke) (D+/R+). Thymo [...] SCD CMV D+/R+ 10. AVN left knee 11, Recurrent Gout 12 ECOLI UTI 02/2015 13. Pyelo 01/2020 14 COVID 2021 14. Shingles C2 dermatome 11/2023 Aranesp at [facility] for Hgb <10; labs are done every 2 weeks Feeling well pain gone stopped gabapentin intermittent lasix use occ LE edema BP 129/87 (BP Site: Left Arm, BP Position: Sitting, BP Cuff Size: Regular Adult) Pulse 79 Temp 37.2 C (98.9 F) (Oral) Ht 160 cm (5' 3 ) Wt 65.1 kg (143 lb 8.3 oz) LMP 01/05/2012 BMI 25.42 kg/m BP - standardized method Pulse 1 BP #1: 124/88 Pulse #1: 76 beats/min 2 BP #2 : 129/86 Pulse #2 : 79 beats/min 3 BP #3 : 133/89 Pulse #3 : 82 beats/min Average Average BP: 129/87 Average Pulse: 79 beats/min Orthostatic vitals Supine Sitting Standing Standing BP : 127/85 Standing pulse : 84 BP cuff location BP cuff location: Left upper arm BP cuff size BP cuff size: regular adult Comments for BP values First BP (right) First BP (left) BP cuff size: regular adult HEENT: NC/AT, anicteric Neck supple No JVP Lungs CTA bilat no wheeze, rales CV RRR, no m/r/g ABD soft, NT Allograft nontender No peripheral edema Neuro nonfocal Creatinine (mg/dL) Date Value 11/26/2023 2.22 10/15/2023 2.31 09/08/2023 2.21 01/02/2022 1.55 12/05/2021 1.44 11/21/2021 1.48 BUN (mg/dL) Date Value 11/26/2023 46 10/15/2023 79 09/08/2023 47 01/02/2022 46 12/05/2021 44 11/21/2021 43 Potassium (mmol/L) Date Value 11/26/2023 4.2 10/15/2023 3.9 09/08/2023 4.4 01/02/2022 4.2 12/05/2021 4.1 11/21/2021 4.3 WBC (k/uL) Date Value 11/26/2023 6.39 10/15/2023 4.19 09/08/2023 4.47 01/02/2022 4.42 12/05/2021 4.56 11/21/2021 3.83 Hemoglobin (g/dL) Date Value 11/26/2023 10.5 10/15/2023 10.6 09/08/2023 10.2 01/02/2022 10.8 12/05/2021 11.1 11/21/2021 10.2 Hematocrit (%) Date Value 11/26/2023 31.4 10/15/2023 30.9 09/08/2023 30.2 01/02/2022 31.9 12/05/2021 33.0 11/21/2021 30.4 Platelet Count (k/uL) Date Value 11/26/2023 188 10/15/2023 193 09/08/2023 143 01/02/2022 173 12/05/2021 155 11/21/2021 172 Calcium (mg/dL) Date Value 01/02/2022 9.5 12/05/2021 10.2 11/21/2021 9.3 Calcium, Total (mg/dL) Date Value 11/26/2023 9.9 10/15/2023 10.0 09/08/2023 9.3 PTH, Intact (pg/mL) Date Value 07/23/2023 66 11/24/2018 110 10/13/2018 77 09/22/2018 83 Phosphorus (mg/dL) Date Value 11/26/2023 3.9 10/15/2023 4.5 09/08/2023 4.0 01/02/2022 3.3 12/05/2021 3.5 11/21/2021 3.5 Lipase (U/L) Date Value 02/22/2015 25 01/24/2012 19 Vitamin D 25 Hydroxy (ng/mL) Date Value 07/23/2023 39.7 11/24/2018 36.9 10/13/2018 32.8 09/22/2018 37.0 Tacrolimus/FK506 (ng/mL) Date Value 11/26/2023 5.4 10/15/2023 5.1 09/08/2023 3.7 01/02/2022 14.3 12/05/2021 5.5 11/21/2021 6.7 Sirolimus/Rapamune (ng/mL) Date Value 03/08/2007 <1.0 02/08/2007 <1.0 No results found for: EVERO Cholesterol, Total (mg/dL) Date Value 05/23/2021 242 06/18/2016 127 04/22/2016 145 HDL Cholesterol (mg/dL) Date Value 05/23/2021 45 06/18/2016 31 04/22/2016 36 LDL Cholesterol (mg/dL) Date Value 05/23/2021 159 06/18/2016 60 04/22/2016 80 Triglyceride (mg/dL) Date Value 05/23/2021 188 06/18/2016 180 04/22/2016 147 No results found for: PROTTIMED Protein, Urine Random (mg/dL) Date Value 07/13/2014 6 10/03/2013 21 06/27/2013 20 01/31/2013 28 07/26/2012 39 03/18/2012 65 Creatinine, Ur Random (UCRR) (mg/dL) Date Value 07/13/2014 25.9 10/03/2013 155.6 06/27/2013 142.5 01/31/2013 169.5 07/26/2012 167.0 03/18/2012 194.3 Impression: 48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, s/p KTXP x 2, most recent 01/05/2012 baseline is reduced GFR 1.5-2.0 creatinine Historically not much proteinuria Slightly worse GFR, but know from last bx there is fair amount of fibrosis already TAC/MMF/P based regimen Tacrolimus/FK506 (ng/mL) Date Value 11/26/2023 5.4 10/15/2023 5.1 09/08/2023 3.7 07/23/2023 4.6 01/02/2022 14.3 12/05/2021 5.5 11/21/2021 6.7 11/07/2021 6.9 HTN- not optimal but better Anemia/leukopenia- managed by her Hematology team Plan: DSA, RFP, BK today C3, C4, DNA, NIYAH today Urine pro/creat today Bx if any of above indicate possible immunologic cause (suspect worsening IFTA) Rec shingles vax in 3 mo FU in 6mo This patients medical condition requires monitoring for maintenance of allograft function, prevention of rejection, therapeutic drug management, and monitoring and treating associated comobidities, requires medical decision making of high complexity. Edgardo Nguyen MD documented in this encounter [facility] 12-28-2023 Miscellaneous Notes RAÚL: 2021, NOV: 12/29/23 documented in this encounter [facility] 11-05-2023 Miscellaneous Notes The following approved medication requests have been transmitted electronically. Requested Prescriptions Signed Prescriptions Disp Refills predniSONE (DELTASONE) 5 mg tablet 90 tablet 3 Sig: take 1 tablet by mouth every day Authorizing Provider: ANTOINETTE SIMEON APRN.[employer]OR TEAM LEADER RAÚL: 12/03/21, NOV: 12/29/23 documented in this encounter [facility] 10-22-2023 Miscellaneous Notes Pt is out of prescription... Patient phones requesting refills as follows: Requested Prescriptions Pending Prescriptions Disp Refills carvedilol (COREG) 12.5 mg tablet 120 tablet 11 Sig: Take 1 tablet by mouth two times a day. Please review and advise. Matilda Humphreys documented in this encounter [facility] 10-15-2023 Nurse Note Hgb 10.6. Injection deferred. Jenny Otero LPN documented in this encounter [facility] 09-08-2023 History of Present illness Narrative Aranesp injection deferred, treatment parameter not met, Hgb 10.2 Olga Goyal LPN documented in this encounter [facility] 09-08-2023 History of Present illness Narrative Patient is here for IVAD port flush/blood draw per [facility] protocol. IVAD is located in right upper chest. Site cleansed with Chloraprep IVAD accessed with a #20 gauge 3/4 non-coring Gripper needle Flush with 5cc's Normal Saline. Blood Return: Good. 10 cc's blood aspirated and discarded. Blood drawn for CBC and CMP. Flushed with: 20 ml Normal Saline and 5 ml Heparin Lock Flush. Non-coring needle removed. Paper tape applied to puncture site. Site negative for redness, edema or tenderness. Patient tolerated procedure well. documented in this encounter [facility] 07-27-2023 Miscellaneous Notes Patient phones requesting refills as follows: Requested Prescriptions Pending Prescriptions Disp Refills tacrolimus IR (PROGRAF) 1 mg capsule 450 capsule 3 Sig: TAKE 2 CAPSULES IN AM AND 3 CAPSULES IN PM Please review and advise. Eliza Coello, documented in this encounter [facility] 07-23-2023 Nurse Note Injection deferred, parameters not met HGB 10.6 Lyndsey Preston LPN documented in this encounter [facility] 07-23-2023 History of Present illness Narrative Patient is here for IVAD port flush/blood draw per [facility] protocol. IVAD is located in right upper chest. Site cleansed with Chloraprep IVAD accessed with a #20 gauge 3/4 non-coring Gripper needle Flush with 5cc's Normal Saline. Blood Return: Good. 10 cc's blood aspirated and discarded. Blood drawn for CBC, CMP, and Gold top. Flushed with: 20 ml Normal Saline and 5 ml Heparin Lock Flush. Non-coring needle removed. Paper tape applied to puncture site. Site negative for redness, edema or tenderness. Patient tolerated procedure well. documented in this encounter [facility] 06-11-2023 Miscellaneous Notes Pt out of town. Will call to reschedule upon return. documented in this encounter [facility] 06-03-2023 Miscellaneous Notes Patient was sorry that she missed her 05/27/2023 appointment. She thought it was later in the month. She did state that she had planned on canceling that appointment due to her arm feeling so much better with no pain. She wanted to thank the doctors and staff. documented in this encounter [facility] 04-29-2023 Note HNO ID: [id number] Author: Dk Hawk, DO Service: ? Author Type: Physician Type: Progress Notes Filed: 04/29/2023 1:08 PM Note Text: [facility] DEPARTMENT OF VASCULAR SURGERY OUTPATIENT VISIT DATE April 29, 2023 OUTPATIENT VISIT TYPE CONSULTATION SERVICE DATE: 04/29/2023 SERVICE TIME: 10:04 AM PRIMARY CARE PHYSICIAN: Nabila Gomez MD REFERRING PROVIDER: No referring provider defined for this encounter. Consult requested for an opinion regarding the evaluation and treatment of the above. My final impression and recommendations will be communicated back to the requesting physician by way of the shared medical record or letter via [place] mail. CHIEF COMPLAINT: left upper arm pain HISTORY OF PRESENT ILLNESS: Vascular consultation at the request of . A copy of this consultation note will be provided to the requesting physician by way of shared Medical record or letter to requesting physician via [place] mail. Ms. Sauceda is a 47 year old female who is seen today for evaluation of right upper arm pain. Patient has a history of end-stage renal disease status post right upper arm AV graft in 2005. Patient underwent kidney transplant in 2006 and retransplant in 2011. Patient on long-term immunosuppression with tacro, prednisone, and MMF. AVG has not been used since prior to transplant. Had low grade fevers and malaise for 1-2 months. Was prescribed Augmentin for cough and congestion. Fevers stopped with Augmentin and patient feels better. Developed right upper arm pain and swelling about 5 days ago. Underwent right upper extremity duplex which showed patent brachial artery, patent brachial vein, and occluded right upper arm AV graft. Labs were also performed and per patient report her white blood cell count was within normal limits. Bedside ultrasound performed in office and demonstrates occluded right upper extremity AV graft and no perigraft Fluid collections or concerning signs of infection. 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 Corpus luteum cyst or hematoma left ovary mass laparascopically biopsied 2002; benign corpus luteum Cough jeanna induced Cystitis x1 summer 2004 (presented with fever) End stage renal disease (HCC) End stage renal disease (HCC) Fracture Childhood, L arm; states she 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 Hyperlipidemia 02/22/2015 Legionnaires' disease (HCC) 1996 during SLE flare, serum antigen +, but urine antigen negative; treated anyway Malignant neoplasm of other specified sites of uterine adnexa 2001 open resection right ovary; suspicious lymphadenopathy and PET results led to lap node sampling end of 2001 with negative results; no chemo/XRT; no PET or CT scans for awhile Nephritis and nephropathy, not specified as acute or chronic, with other specified pathological lesion in kidney, in diseases classified elsewhere 1996 nephrotic/nephritic, biopsy Class III treated wt steroids; biopsy 1997 Class Vb; ? Class IV (received CTX); 2000 and 2001 (? 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; quiescent Type II or unspecified type diabetes mellitus without mention of complication, not stated as uncontrolled steroid induced; also had probably steroid psychosis with high dose Unspecified hypertensive heart and kidney disease without heart failure and with chronic kidney disease stage V or end stage renal disease(404.92) Unspecified hypothyroidism PAST SURGICAL HISTORY Procedure Laterality Date PAST SURGICAL HISTORY OF right oophorectomy, left ovarian biopsy; multiple kidney biopsies; paraaortic and axillary lymph node sampling PAST SURGICAL HISTORY OF 2002, 2002 lymph node biopsies PAST SURGICAL HISTORY OF 2006 peritoneal dialysis cath placement PAST SURGICAL HISTORY OF 2006 AVF, AV graft PAST SURGICAL HISTORY OF 01/05/2012 Kidney transplant PAST SURGICAL HISTORY OF Left 09/2018 knee scope and removal loose body TRANSPLANT KIDNEY W/WO DOP 12/31/2006 SOCIAL HISTORY: Social History Tobacco Use Smoking status: Never Smokeless tobacco: Never Vaping Use Vaping Use: Never used Substance Use Topics Alcohol use: No Alcohol/week: 0.0 standard drinks Drug use: No FAMILY HISTORY Problem Relation Age of Onset Hypertension Mother Hypertens (more content not included)... [facility] 04-29-2023 Instructions Dk Hawk DO - 04/29/2023 10:35 AM EDT Please follow up in 1 month to ensure you are no longer having fevers and chills. Your graft is occluded and likely having pain from inflammation. At this point there is low concern for infection. Bedside ultrasound showed no perigraft fluid collections. documented in this encounter [facility] 04-29-2023 History of Present illness Narrative Images from the original note were not included. [facility] DEPARTMENT OF VASCULAR SURGERY OUTPATIENT VISIT DATE April 29, 2023 OUTPATIENT VISIT TYPE CONSULTATION SERVICE DATE: 04/29/2023 SERVICE TIME: 10:04 AM PRIMARY CARE PHYSICIAN: Nabila Gomez MD REFERRING PROVIDER: No referring provider defined for this encounter. Consult requested for an opinion regarding the evaluation and treatment of the above. My final impression and recommendations will be communicated back to the requesting physician by way of the shared medical record or letter via [place] mail. CHIEF COMPLAINT: left upper arm pain HISTORY OF PRESENT ILLNESS: Vascular consultation at the request of . A copy of this consultation note will be provided to the requesting physician by way of shared Medical record or letter to requesting physician via [place] mail. Ms. Sauceda is a 47 year old female who is seen today for evaluation of right upper arm pain. Patient has a history of end-stage renal disease status post right upper arm AV graft in 2005. Patient underwent kidney transplant in 2006 and retransplant in 2011. Patient on long-term immunosuppression with tacro, prednisone, and MMF. AVG has not been used since prior to transplant. Had low grade fevers and malaise for 1-2 months. Was prescribed Augmentin for cough and congestion. Fevers stopped with Augmentin and patient feels better. Developed right upper arm pain and swelling about 5 days ago. Underwent right upper extremity duplex which showed patent brachial artery, patent brachial vein, and occluded right upper arm AV graft. Labs were also performed and per patient report her white blood cell count was within normal limits. Bedside ultrasound performed in office and demonstrates occluded right upper extremity AV graft and no perigraft Fluid collections or concerning signs of infection. 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 Class IV (received CTX); 2000 and 2001 (? 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; quiescent Type II or unspecified type diabetes mellitus without mention of complication, not stated as uncontrolled steroid induced; also had probably steroid psychosis with high dose Unspecified hypertensive heart and kidney disease without heart failure and with chronic kidney disease stage V or end stage renal disease(404.92) Unspecified hypothyroidism PAST SURGICAL HISTORY Procedure Laterality Date PAST SURGICAL HISTORY OF right oophorectomy, left ovarian biopsy; multiple kidney biopsies; paraaortic and axillary lymph node sampling PAST SURGICAL HISTORY OF 2002, 2002 lymph node biopsies PAST SURGICAL HISTORY OF 2005 peritoneal dialysis cath placement PAST SURGICAL HISTORY OF 2006 AVF, AV graft PAST SURGICAL HISTORY OF 01/05/2012 Kidney transplant PAST SURGICAL HISTORY OF Left 09/2018 knee scope and removal loose body TRANSPLANT KIDNEY W/WO DOP 12/31/2006 SOCIAL HISTORY: Social History Tobacco Use Smoking status: Never Smokeless tobacco: Never Vaping Use Vaping Use: Never used Substance Use Topics Alcohol use: No Alcohol/week: 0.0 standard drinks Drug use: No FAMILY HISTORY Problem Relation Age of Onset Hypertension Mother Hypertension Father Diabetes Father Ischemic Heart Disease Father Stroke Father MEDICATIONS: amoxicillin-clavulanic acid (AUGMENTIN) 875-125 mg per tablet Take 1 tablet by mouth twice daily. albuterol HFA (PROVENTIL HFA, VENTOLIN HFA) 90 mcg/actuation inhaler Inhale 2 Puffs as instructed every 4 hours as needed for wheezing/shortness of breath. allopurinol (ZYLOPRIM) 100 mg tablet Take 2 tablets by mouth once daily. famotidine (PEPCID) 20 mg tablet TAKE 1 TABLET BY MOUTH TWICE A DAY furosemide (LASIX) 20 mg tablet TAKE 1 TABLET BY MOUTH DAILY NEEDED FOR EDEMA. amLODIPine (NORVASC) 10 mg tablet Take 1 tablet by mouth once daily. carvedilol (COREG) 12.5 mg tablet TAKE 1 TABLET BY MOUTH TWICE A DAY mycophenolate mofetil (CELLCEPT) 250 mg capsule TAKE 2 CAPSULES BY MOUTH TWICE DAILY. Z94.0 KIDNEY TRANSPLANT tacrolimus IR (PROGRAF) 1 mg capsule TAKE 2 CAPSULES IN AM AND 3 CAPSULES IN PM predniSONE (DELTASONE) 5 mg tablet TAKE 1 TABLET BY MOUTH EVERY DAY simvastatin (ZOCOR) 20 mg tablet TAKE 1 TABLET BY MOUTH EVERY DAY levothyroxine (SYNTHROID) 50 mcg tablet TAKE 1 TABLET BY MOUTH EVERY DAY 0.9 % sodium chloride (0.9% NACL) Access implanted vascular access device [...] heparin allergy). De-access port on treatment completion. Multivitamin capsule Take 1 capsule by mouth once daily. L gasseri/B bifidum/B longum (PROBIOTIC COLON CARE ORAL) Take 2 capsules by mouth once daily. flaxseed oil (OMEGA 3 ORAL) Take 2 capsules by mouth once daily. PROGESTERONE MISC 1 capsule. Daily folic acid 1 mg tablet Take 1 mg by mouth once daily. cholecalciferol (VITAMIN D3) 50 mcg (2,000 unit) tablet Take 2,000 Units by mouth once daily. DARBEPOETIN IRLANDA IN ALBUMN ODELL (ARANESP INJECTION) by INJECTION(UNSPECIFIED PARENTERAL ROUTES) route. Biotin 10,000 mcg cap Take 1 capsule by mouth once daily. Ferrous Sulfate (IRON) 325 mg (65 mg iron) tablet Take 1 tablet by mouth twice daily. ALLERGIES: ALLERGIES Allergen Reactions Sulfa (Sulfonamide * Mental Status Change PHYSICAL EXAM: VITALS: BP 124/70 Pulse 78 Resp 16 Ht 5' 3 (1.60m) Wt 132 lb (59.9kg) LMP 01/05/2012 BMI 23.39 kg/(m^2). General: Alert and oriented, No acute distress HEENT: EOMI, No carotid bruit Cardiovascular: Pulse regular. Lungs: Normal breath sounds, no wheezes. Abdomen: Soft, non-tender. Extremities: right upper arm with thrombosed AVG, no erythema, no wounds, no drainage, Neurological: Normal cognition and motor skills. No weakness or sensory deficit. Vascular: bilateral brachial and radial palpable, Diagnostic tests reviewed for today's visit: Most recent labs Most recent imaging IMPRESSION: Ms. Sauceda is a 47 year old female with thrombosed right upper arm AVG with pain likely from inflammatory reaction. No concern for infection at this point. . PLAN and RECOMMENDATIONS: - instructed patient to use tylenol and warm compresses for pain control, will likely subside in next couple weeks -Follow-up in 1 month to ensure that fevers have not returned and that pain is improving -If patient develops fevers or signs of infection will repeat labs in blood cultures I spent a total of 45 minutes on the date of the service which included preparing to see the patient, [id number] patient care, completing clinical documentation, obtaining and/or reviewing separately obtained history, performing a medically appropriate examination, counseling and educating the patient/family/caregiver, communicating with other HCPs (not separately reported), independently interpreting results (not separately reported) and communicating results to the patient/family/caregiver. SIGNATURE: Dk Hawk DO PATIENT NAME: Ashok Sauceda DATE: April 29, 2023 TIME: 10:04 AM documented in this encounter [facility] 03-11-2023 Note ORIGINAL EXAMINATION: TRANSVAGINAL PELVIC ULTRASOUND03/11/2023 11:44 am Ultrasound pelvis, transabdominal and transvaginal COMPARISON: Ultrasound 03/22/2019 HISTORY: ORDERING SYSTEM PROVIDED HISTORY: Reason for Exam: RLQ pain, hx multiple surgeries., history of right oophorectomy, postmenopausal bleeding by given patient history FINDINGS: The uterus is 9.5 x 4.0 x 5.8 cm. Artifacts limit evaluation of the anterior myometrium. There is at least 1 subserosal fibroid anteriorly of 1.4 cm. No other discrete uterine mass is seen. The endometrium is mildly heterogeneous and is up to 6.6 mm double wall thickness. No significant blood flow on Doppler. Right ovary: Surgically absent, not visualized Left ovary: Not visualized perhaps obscured by bowel. There is no adnexal mass or pelvic free fluid seen. 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 IMPRESSION: Small anterior subserosal fibroid. 6.6 mm endometrial thickness with mild heterogeneity. Correlate with patient's menopausal status. 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 Interpreted by: Adan Khan MD Preliminary Report By: Adan Khan MD Electronically signed By Adan Khan MD Dictated Date: 03/11/2023 10:32:46 PM Prelim Date: 03/11/2023 10:37:27 PM Sign Date: 03/11/2023 10:37:27 PM Ordering Provider: [facility] 03-11-2023 Note ORIGINAL EXAMINATION: TRANSVAGINAL PELVIC ULTRASOUND03/11/2023 11:44 am Ultrasound pelvis, transabdominal and transvaginal COMPARISON: Ultrasound 03/22/2019 HISTORY: ORDERING SYSTEM PROVIDED HISTORY: Reason for Exam: RLQ pain, hx multiple surgeries., history of right oophorectomy, postmenopausal bleeding by given patient history FINDINGS: The uterus is 9.5 x 4.0 x 5.8 cm. Artifacts limit evaluation of the anterior myometrium. There is at least 1 subserosal fibroid anteriorly of 1.4 cm. No other discrete uterine mass is seen. The endometrium is mildly heterogeneous and is up to 6.6 mm double wall thickness. No significant blood flow on Doppler. Right ovary: Surgically absent, not visualized Left ovary: Not visualized perhaps obscured by bowel. There is no adnexal mass or pelvic free fluid seen. 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 IMPRESSION: Small anterior subserosal fibroid. 6.6 mm endometrial thickness with mild heterogeneity. Correlate with patient's menopausal status. 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 Interpreted by: Adan Khan MD Preliminary Report By: Adan Khan MD Electronically signed By Adan Khan MD Dictated Date: 03/11/2023 10:32:46 PM Prelim Date: 03/11/2023 10:37:27 PM Sign Date: 03/11/2023 10:37:27 PM Ordering Provider: [facility] 02-13-2023 Miscellaneous Notes Pt is out and leaving for vacation tomorrow. RAÚL 12/03/21 Patient's request for medication is as follows: Requested Prescriptions Pending Prescriptions Disp Refills allopurinol (ZYLOPRIM) 100 mg tablet 180 tablet 3 Sig: Take 2 tablets by mouth once daily. Please approve the above prescription(s) to electronically send to pharmacy. Jesus Spann documented in this encounter [facility] 02-09-2023 Nurse Note Injection deferred, parameters not met HGB 10.2 Lyndsey Milan LPN documented in this encounter [facility] 12-25-2022 Nurse Note Injection deferred, parameters not met HGB 10.5 Lyndsey Milan LPN documented in this encounter [facility] 12-11-2022 History of Present illness Narrative This note was created using [employer]. Subjective Ashok Sauceda is a 47 year old female. HPI Patient presents with sore throat for 1 day. Her daughter had strep diagnosed this week as well. She has had some post nasal drip. No cough. No vomiting or diarrhea. She has had some fatigue, but also has chronic anemia that sometimes makes her tired. No fever. She has hx of kidney transplant. Review of Systems Constitutional: Positive for fatigue. Negative for fever. HENT: Positive for postnasal drip and sore throat. Negative for congestion, ear pain, sinus pressure and sinus pain. Respiratory: Negative for cough and shortness of breath. Cardiovascular: Negative. Gastrointestinal: Negative. Genitourinary: Negative. Musculoskeletal: Negative. All other systems reviewed and are negative. 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 Class IV (received CTX); 2000 and 2001 (? 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 90 tablet 3 amLODIPine (NORVASC) 10 mg tablet Take 1 tablet by mouth once daily. 90 tablet 3 carvedilol (COREG) 12.5 mg tablet TAKE 1 TABLET BY MOUTH TWICE A DAY 120 tablet 11 mycophenolate mofetil (CELLCEPT) 250 mg capsule TAKE 2 CAPSULES BY MOUTH TWICE DAILY. Z94.0 KIDNEY TRANSPLANT 120 capsule 11 tacrolimus IR (PROGRAF) 1 mg capsule TAKE 2 CAPSULES IN AM AND 3 CAPSULES IN PM 450 capsule 3 predniSONE (DELTASONE) 5 mg tablet TAKE 1 TABLET BY MOUTH EVERY DAY 30 tablet 11 simvastatin (ZOCOR) 20 mg tablet TAKE 1 TABLET BY MOUTH EVERY DAY 90 tablet 3 levothyroxine (SYNTHROID) 50 mcg tablet TAKE 1 TABLET BY MOUTH EVERY DAY 90 tablet 3 allopurinol (ZYLOPRIM) 100 mg tablet TAKE 2 TABLETS BY MOUTH ONCE DAILY 180 tablet 3 0.9 % sodium chloride (0.9% NACL) Access implanted vascular access device (IVAD) as needed for flush, blood draw or treatment. Flush IVAD with 10-20 mL NS every 4 weeks and PRN when IVAD not in use. 2 Syringe 50 heparin 100 unit/mL injection Access implanted vascular access device (IVAD) as needed for flush, blood draw or treatment. Before de-accessing port, flush with 10-20ml normal saline and follow with 5 mL heparin (100 units/mL) (if no heparin allergy). De-access port on treatment completion. 5 mL 50 Multivitamin capsule Take 1 capsule by mouth once daily. L gasseri/B bifidum/B longum (PROBIOTIC COLON CARE ORAL) Take 2 capsules by mouth once daily. flaxseed oil (OMEGA 3 ORAL) Take 2 capsules by mouth once daily. PROGESTERONE MISC 1 capsule. Daily folic acid 1 mg tablet Take 1 mg by mouth once daily. cholecalciferol (VITAMIN D3) 50 mcg (2,000 unit) tablet Take 2,000 Units by mouth once daily. DARBEPOETIN IRLANDA IN ALBUMN ODELL (ARANESP INJECTION) by INJECTION(UNSPECIFIED PARENTERAL ROUTES) route. Biotin 10,000 mcg cap Take 1 capsule by mouth once daily. Ferrous Sulfate (IRON) 325 mg (65 mg iron) tablet Take 1 tablet by mouth twice daily. No current facility-administered medications for this visit. PAST SURGICAL HISTORY Procedure Laterality Date PAST SURGICAL HISTORY OF right oophorectomy, left ovarian biopsy; multiple kidney biopsies; paraaortic and axillary lymph node sampling PAST SURGICAL HISTORY OF 2002, 2002 lymph node biopsies PAST SURGICAL HISTORY OF 2006 peritoneal dialysis cath placement PAST SURGICAL HISTORY OF 2006 AVF, AV graft PAST SURGICAL HISTORY OF 01/05/2012 Kidney transplant PAST SURGICAL HISTORY OF Left 09/2018 knee scope and removal loose body TRANSPLANT KIDNEY W/WO DOP 12/31/2006 FAMILY HISTORY Problem Relation Age of Onset Hypertension Mother Hypertension Father Diabetes Father Ischemic Heart Disease Father Stroke Father Social History Tobacco Use Smoking status: Never Smokeless tobacco: Never Vaping Use Vaping Use: Never used Substance Use Topics Alcohol use: No Alcohol/week: 0.0 standard drinks Drug use: No Objective BP 122/82 Pulse 75 Temp 36.7 C (98.1 F) Resp 21 Wt 61.7 kg (136 lb) LMP 01/05/2012 SpO2 100% BMI 24.09 kg/m Physical Exam Vitals reviewed. Constitutional: Appearance: Normal appearance. HENT: Head: Normocephalic and atraumatic. Right Ear: Tympanic membrane, ear canal and external ear normal. Left Ear: Tympanic membrane, ear canal and external ear normal. Nose: Nose normal. Mouth/Throat: Mouth: Mucous membranes are moist. Pharynx: No oropharyngeal exudate or posterior oropharyngeal erythema. Cardiovascular: Rate and Rhythm: Normal rate and regular rhythm. Heart sounds: Normal heart sounds. Pulmonary: Effort: Pulmonary effort is normal. Breath sounds: Normal breath sounds. Musculoskeletal: Cervical back: Neck supple. Skin: General: Skin is warm and dry. Neurological: Mental Status: She is alert. Assessment and Plan ASSESSMENT/PLAN: 1. Sore throat - ICD9: 462, ICD10: J02.9 (primary diagnosis) - Alere Strep Test neg, no culture pending - STREP A MOLECULAR (POC) - COVID WITH FLUA+B, ROUTINE 2. Viral URI - ICD9: 465.9, ICD10: J06.9 - Discussed viral etiology and rationale for treatment. - Symptomatic treatment with prn analgesia - Supportive care with fluids and rest - patient in window for flu/covid antivirals. - COVID WITH FLUA+B, ROUTINE Juani Rivera PA-C documented in this encounter [facility] 11-13-2022 Nurse Note Injection deferred, parameters not met HGB 10.1 Lyndsey Milan LPN documented in this encounter [facility] 11-13-2022 History of Present illness Narrative Patient is here for IVAD port flush/blood draw per [facility] protocol. IVAD is located in right upper chest. Site cleansed with Chloraprep IVAD accessed with a #20 gauge 3/4 non-coring Gripper needle Flush with 5cc's Normal Saline. Blood Return: Good. 10 cc's blood aspirated and discarded. Blood drawn for CBC, Gold top, Renal Panel and Tacrolimus. Flushed with: 20 ml Normal Saline and 5 ml Heparin Lock Flush. Non-coring needle removed. Paper tape applied to puncture site. Site negative for redness, edema or tenderness. Patient tolerated procedure well. documented in this encounter [facility] 11-04-2022 Note ORIGINAL FROM: [facility] [address] [place], [place] [address] PROCEDURE FOR: ASHOK YEHLABACH [address] [place] [address] Home: PID#: [id number] Exam#: [id number] : 1975 Age: 47 TO: DILIA MORALES MD [address] [facility] [address] [place], [place] [address] Fax: NO FAX EXAMINATION: ULTRASOUND OF THE LEFT BREAST 11/04/2022 11:30 am TECHNIQUE: Color flow and real-time targeted ultrasound of the left breast 2 o'clock were performed. COMPARISON: 11/04/2022, 01/20/2019 HISTORY: ORDERING SYSTEM PROVIDED HISTORY: Reason for Exam: left breast lump 0200, 7cm from nipple FINDINGS: There are no significant sonographic findings to correlate with the palpable abnormality. The patient is probably palpating a fat lobule. IMPRESSION: There are no significant sonographic findings to correlate with the palpable abnormality. Clinical follow up is recommended. The patient may return to annual mammographic screening. Tyrer Cuzick calculations report this patient's 10 year risk and lifetime risk for developing breast cancer at 6.0% and 26.1%, respectively. Based on this assessment tool, this patient's calculated lifetime risk is at or above 20% and they may be a candidate for breast MRI screening per the [employer]. Consider annual MRI screening in addition to annual mammographic screening. BIRADS: MAMMOGRAM BI-RADS: 2: Benign finding RECALL: return to screening RECALL TYPE: mammo LETTER SENT: Normal BI-RADS 1 and 2 Interpreted by: Sandeep August MD Preliminary Report By: Sandeep August MD Electronically signed By Sandeep August MD Dictated Date: 11/04/2022 11:52:25 AM Prelim Date: 11/04/2022 12:05:21 PM Sign Date: 11/04/2022 12:05:21 PM Ordering Provider: DILIA MORALES CLINICAL: PALPABLE LUMP LEFT BREAST. Manager Story: ODESSA GIRON RT,RDMS,RVT,RDCS letter sent: Normal BI-RADS 1 and 2 Ultrasound BI-RADS: 2 Benign [facility] 11-04-2022 Note ORIGINAL FROM: [facility] [address] [place] [address] PROCEDURE FOR: ASHOK EYHLABACH [address] [place] [address] Home: PID#: [id number] Exam#: [id number] : 1975 Age: 47 TO: DILIA MORALES MD [address] [facility] [address] [place] [address] Fax: NO FAX EXAMINATION: ULTRASOUND OF THE LEFT BREAST 11/04/2022 11:30 am TECHNIQUE: Color flow and real-time targeted ultrasound of the left breast 2 o'clock were performed. COMPARISON: 11/04/2022, 01/20/2019 HISTORY: ORDERING SYSTEM PROVIDED HISTORY: Reason for Exam: left breast lump 0200, 7cm from nipple FINDINGS: There are no significant sonographic findings to correlate with the palpable abnormality. The patient is probably palpating a fat lobule. IMPRESSION: There are no significant sonographic findings to correlate with the palpable abnormality. Clinical follow up is recommended. The patient may return to annual mammographic screening. Tyrer Villazick calculations report this patient's 10 year risk and lifetime risk for developing breast cancer at 6.0% and 26.1%, respectively. Based on this assessment tool, this patient's calculated lifetime risk is at or above 20% and they may be a candidate for breast MRI screening per the [employer]. Consider annual MRI screening in addition to annual mammographic screening. BIRADS: MAMMOGRAM BI-RADS: 2: Benign finding RECALL: return to screening RECALL TYPE: mammo LETTER SENT: Normal BI-RADS 1 and 2 Interpreted by: Sandeep August MD Preliminary Report By: Sandeep August MD Electronically signed By Sandeep August MD Dictated Date: 11/04/2022 11:52:25 AM Prelim Date: 11/04/2022 12:05:21 PM Sign Date: 11/04/2022 12:05:21 PM Ordering Provider: DILIA MORALES CLINICAL: PALPABLE LUMP LEFT BREAST. Manager Story: ODESSA GIRON RT,RDMS,RVT,RDCS letter sent: Normal BI-RADS 1 and 2 Ultrasound BI-RADS: 2 Benign [facility] 11-04-2022 Note ORIGINAL FROM: [place] [address] PROCEDURE FOR: ASHOK SAUCEDA [address] [place] [address] Home: PID#: [id number] Exam#: [id number] : 1975 Age: 47 TO: DILIA MORALES MD [address] [facility] [address] [place] [address] Fax: NO FAX EXAMINATION: DIAGNOSTIC BILATERAL MAMMOGRAM WITH TOMOSYNTHESIS, 11/04/2022 10:41 am TECHNIQUE: Tomosynthesis was performed as part of the diagnostic bilateral mammogram. 2D standard and 3D tomosynthesis combination imaging performed. Current study was also evaluated with a Computer Aided Detection (CAD) system. COMPARISON: 01/20/2019 HISTORY: ORDERING SYSTEM PROVIDED HISTORY: Reason for Exam: left breast lump 0200, 7cm from nipple FINDINGS: BREAST DENSITY: Extremely Dense There are benign appearing calcifications in the right breast. No significant masses, calcifications, or other findings. IMPRESSION: No mammographic findings to correlate with the patient's palpable lump. An ultrasound will be performed today and will be reported separately. Tyrer Villazick calculations report this patient's 10 year risk and lifetime risk for developing breast cancer at 6.0% and 26.1%, respectively. Based on this assessment tool, this patient's calculated lifetime risk is at or above 20% and they may be a candidate for breast MRI screening per the [employer]. Consider annual MRI screening in addition to annual mammographic screening. BIRADS: MAMMOGRAM BI-RADS: 0: Needs addl evaluation RECALL: immediate RECALL TYPE: US LETTER SENT: Normal-Needs additional work up BI-RADS 0 Interpreted by: Sandeep August MD Preliminary Report By: Sandeep August MD Electronically signed By Sandeep August MD Dictated Date: 11/04/2022 12:05:57 PM Prelim Date: 11/04/2022 12:06:51 PM Sign Date: 11/04/2022 12:06:51 PM Ordering Provider: DILIA MORALES Manager Story: SAMANTA MICHAEL RT (R)(M) letter sent: Normal-Needs additional work up BI-RADS 0 Mammogram BI-RADS: 0 Indeterminate [facility] 11-04-2022 Note ORIGINAL FROM: [place] [address] PROCEDURE FOR: ASHOK SAUCEDA [address] [place] [id number] Home: PID#: [id number] Exam#: [id number] : 1975 Age: 47 TO: DILIA MORALES MD [address] [facility] [address] [place] [address] Fax: NO FAX EXAMINATION: DIAGNOSTIC BILATERAL MAMMOGRAM WITH TOMOSYNTHESIS, 11/04/2022 10:41 am TECHNIQUE: Tomosynthesis was performed as part of the diagnostic bilateral mammogram. 2D standard and 3D tomosynthesis combination imaging performed. Current study was also evaluated with a Computer Aided Detection (CAD) system. COMPARISON: 01/20/2019 HISTORY: ORDERING SYSTEM PROVIDED HISTORY: Reason for Exam: left breast lump 0200, 7cm from nipple FINDINGS: BREAST DENSITY: Extremely Dense There are benign appearing calcifications in the right breast. No significant masses, calcifications, or other findings. IMPRESSION: No mammographic findings to correlate with the patient's palpable lump. An ultrasound will be performed today and will be reported separately. Tyrer Cuzick calculations report this patient's 10 year risk and lifetime risk for developing breast cancer at 6.0% and 26.1%, respectively. Based on this assessment tool, this patient's calculated lifetime risk is at or above 20% and they may be a candidate for breast MRI screening per the [employer]. Consider annual MRI screening in addition to annual mammographic screening. BIRADS: MAMMOGRAM BI-RADS: 0: Needs addl evaluation RECALL: immediate RECALL TYPE: US LETTER SENT: Normal-Needs additional work up BI-RADS 0 Interpreted by: Sandeep August MD Preliminary Report By: Sandeep August MD Electronically signed By Sandeep August MD Dictated Date: 11/04/2022 12:05:57 PM Prelim Date: 11/04/2022 12:06:51 PM Sign Date: 11/04/2022 12:06:51 PM Ordering Provider: DILIA MORALES Manager Story: SAMANTA MICHAEL RT (R)(M) letter sent: Normal-Needs additional work up BI-RADS 0 Mammogram BI-RADS: 0 Indeterminate [facility] 2022 Evaluation + Plan note Future Scheduled TestsCancer Antigen 125 10/29/22Lactate Dehydrogenase 10/29/22AFP tumor marker 10/29/22hCG, quantitative (AH) 10/29/22US Pelvis Non-OB W/Transvaginal 10/29/22 [facility] 10-07-2022 History of Present illness Narrative Patient is here for IVAD port flush/blood draw per [facility] protocol. IVAD is located in right upper chest. Site cleansed with Chloraprep IVAD accessed with a #20 gauge 3/4 non-coring Gripper needle Flush with 5cc's Normal Saline. Blood Return: Good. 10 cc's blood aspirated and discarded. Blood drawn for CBC and CMP. Flushed with: 20 ml Normal Saline and 5 ml Heparin Lock Flush. Non-coring needle removed. Paper tape applied to puncture site. Site negative for redness, edema or tenderness. Patient tolerated procedure well. documented in this encounter [facility] 10-02-2022 Nurse Note Injection deferred, parameters not met HGB 10.7 Lyndsey Milan LPN documented in this encounter [facility] 10-02-2022 History of Present illness Narrative Patient is here for IVAD port flush/blood draw per [facility] protocol. IVAD is located in right upper chest. Site cleansed with Chloraprep IVAD accessed with a #20 gauge 3/4 non-coring Gripper needle Flush with 5cc's Normal Saline. Blood Return: Good. 10 cc's blood aspirated and discarded. Blood drawn for CBC and CMP. Flushed with: 20 ml Normal Saline and 5 ml Heparin Lock Flush. Non-coring needle removed. Paper tape applied to puncture site. Site negative for redness, edema or tenderness. Patient tolerated procedure well. documented in this encounter [facility] 09-10-2022 Miscellaneous Notes Called patient after receiving message that the vancomycin may need insurance prior authorization. Patient states she did receive the vancomycin and started it on Thursday evening 09/08/22. On day 1 she took one of them at bedtime and woke up sick to her stomach, so she has now started taking it with a little food every time and doing much better. Patient has no questions or concerns at this time. Reason for Disposition General information question, no triage required and triager able to answer question Protocols used: Information Only Call - No [id number] documented in this encounter [facility] 09-01-2022 Miscellaneous Notes Patient phones requesting refills as follows: Requested Prescriptions Pending Prescriptions Disp Refills amLODIPine (NORVASC) 10 mg tablet 90 tablet 3 Sig: Take 1 tablet by mouth once daily. Please review and advise. Matilda Humphreys documented in this encounter [facility] 07-31-2022 Miscellaneous Notes Patient notified, schedule updated. She hasn't required Retacrit in quite a while. Change schedule to every 6 weeks. Schuyler Abrams DO documented in this encounter [facility] 07-17-2022 Nurse Note retacrit injection deferred. Pt did not meet treatment parameters. Hgb 10.6 Olga Goyal LPN documented in this encounter [facility] 07-15-2022 Miscellaneous Notes Pt pharmacy request rx be resent. Instructions not clear Patient phones requesting refills as follows: Requested Prescriptions Pending Prescriptions Disp Refills tacrolimus IR (PROGRAF) 1 mg capsule 450 capsule 3 Sig: TAKE 2 CAPSULES IN AM AND 3 CAPSULES IN PM Please review and advise. Matilda Cortes Adm documented in this encounter [facility] 07-11-2022 Miscellaneous Notes Addended by: SHIRA BIRCH on: 07/11/2022 05:02 PM Modules accepted: Orders Pt calling to change pharmacy's. *Pt is out of medication. Pharmacist will dispense emergency supply. Patient's request for medication is as follows: Requested Prescriptions Pending Prescriptions Disp Refills tacrolimus IR (PROGRAF) 1 mg capsule 450 capsule 3 Sig: Sig: TAKE 2 CAPSULES IN AM AND 3 CAPSULES IN PM Please approve the above prescription(s) to electronically send to pharmacy. Shira Birch documented in this encounter [facility] 07-03-2022 History of Present illness Narrative retacrit injection deferred. Pt did not meet treatment parameters. HGB 10.5 Olga Goyal LPN documented in this encounter [facility] 07-03-2022 History of Present illness Narrative Patient is here for IVAD port flush/blood draw per [facility] protocol. IVAD is located in right upper chest. Site cleansed with Chloraprep IVAD accessed with a #20 gauge 3/4 non-coring Gripper needle Flush with 5cc's Normal Saline. Blood Return: Good. 10 cc's blood aspirated and discarded. Blood drawn for CBC and BMP. Flushed with: 20 ml Normal Saline and 5 ml Heparin Lock Flush. Non-coring needle removed. Paper tape applied to puncture site. Site negative for redness, edema or tenderness. Patient tolerated procedure well. documented in this encounter [facility] 06-27-2022 Miscellaneous Notes Patient's request for medication is as follows: Requested Prescriptions Pending Prescriptions Disp Refills tacrolimus IR (PROGRAF) 1 mg capsule [Pharmacy Med Name: TACROLIMUS 1 MG CAPSULE (IR)] 450 capsule 2 Sig: TAKE 2 CAPSULES IN AM AND 3 CAPSULES IN PM Please approve the above prescription(s) to electronically send to pharmacy. Gentry Islas documented in this encounter [facility] 06-18-2022 History of Present illness Narrative Hgb 10.6. retacrit injection deferred. Pt did not meet treatment parameters. Olga Goyal LPN documented in this encounter [facility] 06-10-2022 Miscellaneous Notes The following approved medication requests have been transmitted electronically. Signed Prescriptions Disp Refills predniSONE (DELTASONE) 5 mg tablet 30 tablet 11 Sig: TAKE 1 TABLET BY MOUTH EVERY DAY BLANKA: No Authorizing Provider: ANTOINETTE SIMEON APRN.TRUDY RAÚL:11/23/21 Patient's request for medication is as follows: Pending Prescriptions Disp Refills PREDNISONE 5 MG TABLET 30 tablet 11 Sig: TAKE 1 TABLET BY MOUTH EVERY DAY BLANKA: Yes Please approve the above prescription(s) to electronically send to pharmacy. Shira Birch documented in this encounter [facility] 06-05-2022 History of Present illness Narrative New script for tacro refill (coverage for Dr. Nguyen) Nicki Cabrera MD documented in this encounter [facility] 05-08-2022 History of Present illness Narrative Retacrit injection deferred. Pt did not meet treatment parameters. Hgb 10.8 Olga Goyal LPN documented in this encounter [facility] 05-08-2022 History of Present illness Narrative Patient is here for IVAD port flush/blood draw per [facility] protocol. IVAD is located in right upper chest. Site cleansed with Chloraprep IVAD accessed with a #20 gauge 3/4 non-coring Gripper needle Flush with 5cc's Normal Saline. Blood Return: Good. 10 cc's blood aspirated and discarded. Blood drawn Flushed with: 20 ml Normal Saline and 5 ml Heparin Lock Flush. Non-coring needle removed. Paper tape applied to puncture site. Site negative for redness, edema or tenderness. Patient tolerated procedure well. documented in this encounter [facility] 04-10-2022 Nurse Note Injection deferred, parameters not met HGB 10.7 Lyndsey Milan LPN documented in this encounter [facility] 03-27-2022 History of Present illness Narrative Retacrti injection deferred. Pt did not meet treatment parameters. Hgb 10.5 Olga Goyal LPN documented in this encounter [facility] 03-13-2022 Nurse Note Retacrit injection deferred. Pt did not meet treatment parameters.Hgb 10.1 Olga Goyal LPN documented in this encounter [facility] 03-13-2022 History of Present illness Narrative Pt aware that only lab ordered for today is CBC. Pt will contact Dr. Nguyen's office if he wants other labs. documented in this encounter [facility] 02-20-2022 Miscellaneous Notes Patient notified, okay with waiting until next scheduled appt. What ever the patient would like to do. Jenny Otero LPN Patient scheduled for next injection 03/13. Okay to wait until then? Please advise. Pt will be on vacation on 02/27/22. She will need to r/s appts. She would like 03/06/22 9:45 and 9:30 if that is possible. documented in this encounter [facility] 02-20-2022 Miscellaneous Notes Patient phones requesting refills as follows: Pending Prescriptions Disp Refills LEVOTHYROXINE 50 MCG TABLET 90 tablet 3 Sig: TAKE 1 TABLET BY MOUTH EVERY DAY BLANKA: Yes Please review and advise. Gladis Guillaume documented in this encounter [facility] 02-13-2022 History of Present illness Narrative Retacrit injection deferred. Pt did not meet treatment parameters. hgb 10.3 Olga Goyal LPN documented in this encounter [facility] 02-22-2015 History of Past i llness Narrative Problem Noted Date Resolved Date SUMMARY 02/22/2015 09/01/2018 Overview: Ms Sauceda is a 39 yo F with a PMHx/o kidney transplant, HTN, SLE, hypothyroidism who presented to the ER with fevers (103F), Hypertension, SLE, Hypothyroidism who comes to the ER with flu like symptoms. She was found to have + UA and was started on Cipro initially which was changed to Zosyn on the RNF. UTI (lower urinary tract infection) 02/22/2015 02/28/2015 Overview: Fevers, N/V UA positive for WBC 11-25 with leukoesterase Received one dose of Ciprofloxacin in the ED. Prior history of Klebsiella oxytoca sensitive to cipro and zosyn and Ecoli which was resistant to ciprofloxacin but sensitive to Zosyn. Ultrasound of transplanted kidney (done 02/23/15) was unremarkable PLAN - Continue Zosyn (02/22- - Blood cultures NGTD - Urine culture + > 100k E Coli - Sensitivities pending - Continue IVF - Monitor I+Os, fever curve, WBC Flu-like symptoms 02/22/2015 02/28/2015 Overview: Complains of nausea, vomiting and myalgia with sick contacts. Flu A and B negative Symptoms of one week duration. Beyond the time frame to receive tamiflu. PLAN - Influenza A & B - Negative - Metoclopramide for nausea DVT prophylaxis 02/22/2015 02/28/2015 Overview: PLAN - Heparin 5000 units q 12 UTI (urinary tract infection) 06/10/2013 Post-dural puncture headache 06/10/2013 Urinary tract infection, E. coli 03/17/2013 09/28/2013 Need for prophylactic immunotherapy 06/13/2011 09/28/2013 Anemia, unspecified 04/11/2009 11/21/2011 Unspecified disease of white blood cells 007 01/13/2011 End stage renal disease 10/16/2005 09/28/20 13 Nephritis and nephropathy, n ot specified as acute or chronic, with other specified pathological lesion in kidney, in diseases classified elsewhere 10/16/2005 09/01/2018 Legionnaires' disease 09/28/2013 Overview: during SLE flare, serum antigen +, but urine antigen negative; treated anyway Cough 09/28/2013 Overview: jeanna induced Cystitis 09/01/2018 Overview: x1 summer 2004 (presented with fever) documented as of this encounter (statuses as of 02/13/2022) [facility] History of Past illness Narrative* Problem Noted Date Resolved Date SUMMARY 02/22/2015 09/01/2018 Overview: Ms Sauceda is a 39 yo F with a PMHx/o kidney transplant, HTN, SLE, hypothyroidism who presented to the ER with fevers (103F), Hypertension, SLE, Hypothyroidism who comes to the ER with flu like symptoms. She was found to have + UA and was started on Cipro initially which was changed to Zosyn on the RNF. UTI (lower urinary tract infection) 02/22/2015 02/28/2015 Overview: Fevers, N/V UA positive for WBC 11-25 with leukoesterase Received one dose of Ciprofloxacin in the ED. Prior history of Klebsiella oxytoca sensitive to cipro and zosyn and Ecoli which was resistant to ciprofloxacin but sensitive to Zosyn. Ultrasound of transplanted kidney (done 02/23/15) was unremarkable PLAN - Continue Zosyn (02/22- - Blood cultures NGTD - Urine culture + > 100k E Coli - Sensitivities pending - Continue IVF - Monitor I+Os, fever curve, WBC Flu-like symptoms 02/22/2015 02/28/2015 Overview: Complains of nausea, vomiting and myalgia with sick contacts. Flu A and B negative Symptoms of one week duration. Beyond the time frame to receive tamiflu. PLAN - Influenza A & B - Negative - Metoclopramide for nausea DVT prophylaxis 02/22/2015 02/28/2015 Overview: PLAN - Heparin 5000 units q 12 UTI (urinary tract infection) 06/10/2013 Post-dural puncture headache 06/10/2013 Urinary tract infection, E. coli 03/17/2013 09/28/2013 Need for prophylactic immunotherapy 06/13/2011 09/28/2013 Anemia, unspecified 04/11/2009 11/21/2011 Unspecified disease of white blood cells 007 01/13/2011 End stage renal disease 10/16/2005 09/28/20 13 Nephritis and nephropathy, n ot specified as acute or chronic, with other specified pathological lesion in kidney, in diseases classified elsewhere 10/16/2005 09/01/2018 Legionnaires' disease 09/28/2013 Overview: during SLE flare, serum antigen +, but urine antigen negative; treated anyway Cough 09/28/2013 Overview: jeanna induced Cystitis 09/01/2018 Overview: x1 summer 2004 (presented with fever) documented as of this encounter (statuses as of 02/13/2022) [facility]04-09-2015 History of Past illness Narrative* Problem Noted Date Resolved Date SUMMARY 02/22/2015 09/01/2018 Overview: Ms Sauceda is a 39 yo F with a PMHx/o kidney transplant, HTN, SLE, hypothyroidism who presented to the ER with fevers (103F), Hypertension, SLE, Hypothyroidism who comes to the ER with flu like symptoms. She was found to have + UA and was started on Cipro initially which was changed to Zosyn on the RNF. UTI (lower urinary tract infection) 02/22/2015 02/28/2015 Overview: Fevers, N/V UA positive for WBC 11-25 with leukoesterase Received one dose of Ciprofloxacin in the ED. Prior history of Klebsiella oxytoca sensitive to cipro and zosyn and Ecoli which was resistant to ciprofloxacin but sensitive to Zosyn. Ultrasound of transplanted kidney (done 02/23/15) was unremarkable PLAN - Continue Zosyn (02/22- - Blood cultures NGTD - Urine culture + > 100k E Coli - Sensitivities pending - Continue IVF - Monitor I+Os, fever curve, WBC Flu-like symptoms 02/22/2015 02/28/2015 Overview: Complains of nausea, vomiting and myalgia with sick contacts. Flu A and B negative Symptoms of one week duration. Beyond the time frame to receive tamiflu. PLAN - Influenza A & B - Negative - Metoclopramide for nausea DVT prophylaxis 02/22/2015 02/28/2015 Overview: PLAN - Heparin 5000 units q 12 UTI (urinary tract infection) 06/10/2013 Post-dural puncture headache 06/10/2013 Urinary tract infection, E. coli 03/17/2013 09/28/2013 Need for prophylactic immunotherapy 06/13/2011 09/28/2013 Anemia, unspecified 04/11/2009 11/21/2011 Unspecified disease of white blood cells 007 01/13/2011 End stage renal disease 10/16/2005 09/28/20 13 Nephritis and nephropathy, n ot specified as acute or chronic, with other specified pathological lesion in kidney, in diseases classified elsewhere 10/16/2005 09/01/2018 Legionnaires' disease 09/28/2013 Overview: during SLE flare, serum antigen +, but urine antigen negative; treated anyway Cough 09/28/2013 Overview: jeanna induced Cystitis 09/01/2018 Overview: x1 summer 2004 (presented with fever) documented as of this encounter (statuses as of 02/20/2022) [facility]04-09-2015 History of Past illness Narrative* Problem Noted Date Resolved Date SUMMARY 02/22/2015 09/01/2018 Overview: Ms Sauceda is a 39 yo F with a PMHx/o kidney transplant, HTN, SLE, hypothyroidism who presented to the ER with fevers (103F), Hypertension, SLE, Hypothyroidism who comes to the ER with flu like symptoms. She was found to have + UA and was started on Cipro initially which was changed to Zosyn on the RNF. UTI (lower urinary tract infection) 02/22/2015 02/28/2015 Overview: Fevers, N/V UA positive for WBC 11-25 with leukoesterase Received one dose of Ciprofloxacin in the ED. Prior history of Klebsiella oxytoca sensitive to cipro and zosyn and Ecoli which was resistant to ciprofloxacin but sensitive to Zosyn. Ultrasound of transplanted kidney (done 02/23/15) was unremarkable PLAN - Continue Zosyn (02/22- - Blood cultures NGTD - Urine culture + > 100k E Coli - Sensitivities pending - Continue IVF - Monitor I+Os, fever curve, WBC Flu-like symptoms 02/22/2015 02/28/2015 Overview: Complains of nausea, vomiting and myalgia with sick contacts. Flu A and B negative Symptoms of one week duration. Beyond the time frame to receive tamiflu. PLAN - Influenza A & B - Negative - Metoclopramide for nausea DVT prophylaxis 02/22/2015 02/28/2015 Overview: PLAN - Heparin 5000 units q 12 UTI (urinary tract infection) 06/10/2013 Post-dural puncture headache 06/10/2013 Urinary tract infection, E. coli 03/17/2013 09/28/2013 Need for prophylactic immunotherapy 06/13/2011 09/28/2013 Anemia, unspecified 04/11/2009 11/21/2011 Unspecified disease of white blood cells 007 01/13/2011 End stage renal disease 10/16/2005 09/28/20 13 Nephritis and nephropathy, n ot specified as acute or chronic, with other specified pathological lesion in kidney, in diseases classified elsewhere 10/16/2005 09/01/2018 Legionnaires' disease 09/28/2013 Overview: during SLE flare, serum antigen +, but urine antigen negative; treated anyway Cough 09/28/2013 Overview: jeanna induced Cystitis 09/01/2018 Overview: x1 summer 2004 (presented with fever) documented as of this encounter (statuses as of 02/20/2022) [facility]04-09-2015 History of Past illness Narrative* Problem Noted Date Resolved Date SUMMARY 02/22/2015 09/01/2018 Overview: Ms Sauceda is a 39 yo F with a PMHx/o kidney transplant, HTN, SLE, hypothyroidism who presented to the ER with fevers (103F), Hypertension, SLE, Hypothyroidism who comes to the ER with flu like symptoms. She was found to have + UA and was started on Cipro initially which was changed to Zosyn on the RNF. UTI (lower urinary tract infection) 02/22/2015 02/28/2015 Overview: Fevers, N/V UA positive for WBC 11-25 with leukoesterase Received one dose of Ciprofloxacin in the ED. Prior history of Klebsiella oxytoca sensitive to cipro and zosyn and Ecoli which was resistant to ciprofloxacin but sensitive to Zosyn. Ultrasound of transplanted kidney (done 02/23/15) was unremarkable PLAN - Continue Zosyn (02/22- - Blood cultures NGTD - Urine culture + > 100k E Coli - Sensitivities pending - Continue IVF - Monitor I+Os, fever curve, WBC Flu-like symptoms 02/22/2015 02/28/2015 Overview: Complains of nausea, vomiting and myalgia with sick contacts. Flu A and B negative Symptoms of one week duration. Beyond the time frame to receive tamiflu. PLAN - Influenza A & B - Negative - Metoclopramide for nausea DVT prophylaxis 02/22/2015 02/28/2015 Overview: PLAN - Heparin 5000 units q 12 UTI (urinary tract infection) 06/10/2013 Post-dural puncture headache 06/10/2013 Urinary tract infection, E. coli 03/17/2013 09/28/2013 Need for prophylactic immunotherapy 06/13/2011 09/28/2013 Anemia, unspecified 04/11/2009 11/21/2011 Unspecified disease of white blood cells 007 01/13/2011 End stage renal disease 10/16/2005 09/28/20 13 Nephritis and nephropathy, n ot specified as acute or chronic, with other specified pathological lesion in kidney, in diseases classified elsewhere 10/16/2005 09/01/2018 Legionnaires' disease 09/28/2013 Overview: during SLE flare, serum antigen +, but urine antigen negative; treated anyway Cough 09/28/2013 Overview: jeanna induced Cystitis 09/01/2018 Overview: x1 summer 2004 (presented with fever) documented as of this encounter (statuses as of 03/13/2022) [facility]04-09-2015 History of Past illness Narrative* Problem Noted Date Resolved Date SUMMARY 02/22/2015 09/01/2018 Overview: Ms Sauceda is a 39 yo F with a PMHx/o kidney transplant, HTN, SLE, hypothyroidism who presented to the ER with fevers (103F), Hypertension, SLE, Hypothyroidism who comes to the ER with flu like symptoms. She was found to have + UA and was started on Cipro initially which was changed to Zosyn on the RNF. UTI (lower urinary tract infection) 02/22/2015 02/28/2015 Overview: Fevers, N/V UA positive for WBC 11-25 with leukoesterase Received one dose of Ciprofloxacin in the ED. Prior history of Klebsiella oxytoca sensitive to cipro and zosyn and Ecoli which was resistant to ciprofloxacin but sensitive to Zosyn. Ultrasound of transplanted kidney (done 02/23/15) was unremarkable PLAN - Continue Zosyn (02/22- - Blood cultures NGTD - Urine culture + > 100k E Coli - Sensitivities pending - Continue IVF - Monitor I+Os, fever curve, WBC Flu-like symptoms 02/22/2015 02/28/2015 Overview: Complains of nausea, vomiting and myalgia with sick contacts. Flu A and B negative Symptoms of one week duration. Beyond the time frame to receive tamiflu. PLAN - Influenza A & B - Negative - Metoclopramide for nausea DVT prophylaxis 02/22/2015 02/28/2015 Overview: PLAN - Heparin 5000 units q 12 UTI (urinary tract infection) 06/10/2013 Post-dural puncture headache 06/10/2013 Urinary tract infection, E. coli 03/17/2013 09/28/2013 Need for prophylactic immunotherapy 06/13/2011 09/28/2013 Anemia, unspecified 04/11/2009 11/21/2011 Unspecified disease of white blood cells 007 01/13/2011 End stage renal disease 10/16/2005 09/28/20 13 Nephritis and nephropathy, n ot specified as acute or chronic, with other specified pathological lesion in kidney, in diseases classified elsewhere 10/16/2005 09/01/2018 Legionnaires' disease 09/28/2013 Overview: during SLE flare, serum antigen +, but urine antigen negative; treated anyway Cough 09/28/2013 Overview: jeanna induced Cystitis 09/01/2018 Overview: x1 summer 2004 (presented with fever) documented as of this encounter (statuses as of 03/13/2022) [facility]04-[facility]2015 History of Past illness Narrative* Problem Noted Date Resolved Date SUMMARY 02/22/2015 09/01/2018 Overview: Ms Sauceda is a 39 yo F with a PMHx/o kidney transplant, HTN, SLE, hypothyroidism who presented to the ER with fevers (103F), Hypertension, SLE, Hypothyroidism who comes to the ER with flu like symptoms. She was found to have + UA and was started on Cipro initially which was changed to Zosyn on the RNF. UTI (lower urinary tract infection) 02/22/2015 02/28/2015 Overview: Fevers, N/V UA positive for WBC 11-25 with leukoesterase Received one dose of Ciprofloxacin in the ED. Prior history of Klebsiella oxytoca sensitive to cipro and zosyn and Ecoli which was resistant to ciprofloxacin but sensitive to Zosyn. Ultrasound of transplanted kidney (done 02/23/15) was unremarkable PLAN - Continue Zosyn (02/22- - Blood cultures NGTD - Urine culture + > 100k E Coli - Sensitivities pending - Continue IVF - Monitor I+Os, fever curve, WBC Flu-like symptoms 02/22/2015 02/28/2015 Overview: Complains of nausea, vomiting and myalgia with sick contacts. Flu A and B negative Symptoms of one week duration. Beyond the time frame to receive tamiflu. PLAN - Influenza A & B - Negative - Metoclopramide for nausea DVT prophylaxis 02/22/2015 02/28/2015 Overview: PLAN - Heparin 5000 units q 12 UTI (urinary tract infection) 06/10/2013 Post-dural puncture headache 06/10/2013 Urinary tract infection, E. coli 03/17/2013 09/28/2013 Need for prophylactic immunotherapy 06/13/2011 09/28/2013 Anemia, unspecified 04/11/2009 11/21/2011 Unspecified disease of white blood cells 007 01/13/2011 End stage renal disease 10/16/2005 09/28/20 13 Nephritis and nephropathy, n ot specified as acute or chronic, with other specified pathological lesion in kidney, in diseases classified elsewhere 10/16/2005 09/01/2018 Legionnaires' disease 09/28/2013 Overview: during SLE flare, serum antigen +, but urine antigen negative; treated anyway Cough 09/28/2013 Overview: jeanna induced Cystitis 09/01/2018 Overview: x1 summer 2004 (presented with fever) documented as of this encounter (statuses as of 03/27/2022) [facility]04-[facility]-2015 History of Past illness Narrative* Problem Noted Date Resolved Date SUMMARY 02/22/2015 09/01/2018 Overview: Ms Sauceda is a 39 yo F with a PMHx/o kidney transplant, HTN, SLE, hypothyroidism who presented to the ER with fevers (103F), Hypertension, SLE, Hypothyroidism who comes to the ER with flu like symptoms. She was found to have + UA and was started on Cipro initially which was changed to Zosyn on the RNF. UTI (lower urinary tract infection) 02/22/2015 02/28/2015 Overview: Fevers, N/V UA positive for WBC 11-25 with leukoesterase Received one dose of Ciprofloxacin in the ED. Prior history of Klebsiella oxytoca sensitive to cipro and zosyn and Ecoli which was resistant to ciprofloxacin but sensitive to Zosyn. Ultrasound of transplanted kidney (done 02/23/15) was unremarkable PLAN - Continue Zosyn (02/22- - Blood cultures NGTD - Urine culture + > 100k E Coli - Sensitivities pending - Continue IVF - Monitor I+Os, fever curve, WBC Flu-like symptoms 02/22/2015 02/28/2015 Overview: Complains of nausea, vomiting and myalgia with sick contacts. Flu A and B negative Symptoms of one week duration. Beyond the time frame to receive tamiflu. PLAN - Influenza A & B - Negative - Metoclopramide for nausea DVT prophylaxis 02/22/2015 02/28/2015 Overview: PLAN - Heparin 5000 units q 12 UTI (urinary tract infection) 06/10/2013 Post-dural puncture headache 06/10/2013 Urinary tract infection, E. coli 03/17/2013 09/28/2013 Need for prophylactic immunotherapy 06/13/2011 09/28/2013 Anemia, unspecified 04/11/2009 11/21/2011 Unspecified disease of white blood cells 007 01/13/2011 End stage renal disease 10/16/2005 09/28/20 13 Nephritis and nephropathy, n ot specified as acute or chronic, with other specified pathological lesion in kidney, in diseases classified elsewhere 10/16/2005 09/01/2018 Legionnaires' disease 09/28/2013 Overview: during SLE flare, serum antigen +, but urine antigen negative; treated anyway Cough 09/28/2013 Overview: jeanna induced Cystitis 09/01/2018 Overview: x1 summer 2004 (presented with fever) documented as of this encounter (statuses as of 03/27/2022) [facility]04-[facility]2015 History of Past illness Narrative* Problem Noted Date Resolved Date SUMMARY 02/22/2015 09/01/2018 Overview: Ms Sauceda is a 39 yo F with a PMHx/o kidney transplant, HTN, SLE, hypothyroidism who presented to the ER with fevers (103F), Hypertension, SLE, Hypothyroidism who comes to the ER with flu like symptoms. She was found to have + UA and was started on Cipro initially which was changed to Zosyn on the RNF. UTI (lower urinary tract infection) 02/22/2015 02/28/2015 Overview: Fevers, N/V UA positive for WBC 11-25 with leukoesterase Received one dose of Ciprofloxacin in the ED. Prior history of Klebsiella oxytoca sensitive to cipro and zosyn and Ecoli which was resistant to ciprofloxacin but sensitive to Zosyn. Ultrasound of transplanted kidney (done 02/23/15) was unremarkable PLAN - Continue Zosyn (02/22- - Blood cultures NGTD - Urine culture + > 100k E Coli - Sensitivities pending - Continue IVF - Monitor I+Os, fever curve, WBC Flu-like symptoms 02/22/2015 02/28/2015 Overview: Complains of nausea, vomiting and myalgia with sick contacts. Flu A and B negative Symptoms of one week duration. Beyond the time frame to receive tamiflu. PLAN - Influenza A & B - Negative - Metoclopramide for nausea DVT prophylaxis 02/22/2015 02/28/2015 Overview: PLAN - Heparin 5000 units q 12 UTI (urinary tract infection) 06/10/2013 Post-dural puncture headache 06/10/2013 Urinary tract infection, E. coli 03/17/2013 09/28/2013 Need for prophylactic immunotherapy 06/13/2011 09/28/2013 Anemia, unspecified 04/11/2009 11/21/2011 Unspecified disease of white blood cells 007 01/13/2011 End stage renal disease 10/16/2005 09/28/20 13 Nephritis and nephropathy, n ot specified as acute or chronic, with other specified pathological lesion in kidney, in diseases classified elsewhere 10/16/2005 09/01/2018 Legionnaires' disease 09/28/2013 Overview: during SLE flare, serum antigen +, but urine antigen negative; treated anyway Cough 09/28/2013 Overview: jeanna induced Cystitis 09/01/2018 Overview: x1 summer 2004 (presented with fever) documented as of this encounter (statuses as of 03/31/2022) [facility]04-[facility]2015 History of Past illness Narrative* Problem Noted Date Resolved Date SUMMARY 02/22/2015 09/01/2018 Overview: Ms Sauceda is a 39 yo F with a PMHx/o kidney transplant, HTN, SLE, hypothyroidism who presented to the ER with fevers (103F), Hypertension, SLE, Hypothyroidism who comes to the ER with flu like symptoms. She was found to have + UA and was started on Cipro initially which was changed to Zosyn on the RNF. UTI (lower urinary tract infection) 02/22/2015 02/28/2015 Overview: Fevers, N/V UA positive for WBC 11-25 with leukoesterase Received one dose of Ciprofloxacin in the ED. Prior history of Klebsiella oxytoca sensitive to cipro and zosyn and Ecoli which was resistant to ciprofloxacin but sensitive to Zosyn. Ultrasound of transplanted kidney (done 02/23/15) was unremarkable PLAN - Continue Zosyn (02/22- - Blood cultures NGTD - Urine culture + > 100k E Coli - Sensitivities pending - Continue IVF - Monitor I+Os, fever curve, WBC Flu-like symptoms 02/22/2015 02/28/2015 Overview: Complains of nausea, vomiting and myalgia with sick contacts. Flu A and B negative Symptoms of one week duration. Beyond the time frame to receive tamiflu. PLAN - Influenza A & B - Negative - Metoclopramide for nausea DVT prophylaxis 02/22/2015 02/28/2015 Overview: PLAN - Heparin 5000 units q 12 UTI (urinary tract infection) 06/10/2013 Post-dural puncture headache 06/10/2013 Urinary tract infection, E. coli 03/17/2013 09/28/2013 Need for prophylactic immunotherapy 06/13/2011 09/28/2013 Anemia, unspecified 04/11/2009 11/21/2011 Unspecified disease of white blood cells 007 01/13/2011 End stage renal disease 10/16/2005 09/28/20 13 Nephritis and nephropathy, n ot specified as acute or chronic, with other specified pathological lesion in kidney, in diseases classified elsewhere 10/16/2005 09/01/2018 Legionnaires' disease 09/28/2013 Overview: during SLE flare, serum antigen +, but urine antigen negative; treated anyway Cough 09/28/2013 Overview: jeanna induced Cystitis 09/01/2018 Overview: x1 summer 2004 (presented with fever) documented as of this encounter (statuses as of 04/10/2022) [facility]04-[facility] History of Past illness Narrative* Problem Noted Date Resolved Date SUMMARY 02/22/2015 09/01/2018 Overview: Ms Sauceda is a 39 yo F with a PMHx/o kidney transplant, HTN, SLE, hypothyroidism who presented to the ER with fevers (103F), Hypertension, SLE, Hypothyroidism who comes to the ER with flu like symptoms. She was found to have + UA and was started on Cipro initially which was changed to Zosyn on the RNF. UTI (lower urinary tract infection) 02/22/2015 02/28/2015 Overview: Fevers, N/V UA positive for WBC 11-25 with leukoesterase Received one dose of Ciprofloxacin in the ED. Prior history of Klebsiella oxytoca sensitive to cipro and zosyn and Ecoli which was resistant to ciprofloxacin but sensitive to Zosyn. Ultrasound of transplanted kidney (done 02/23/15) was unremarkable PLAN - Continue Zosyn (02/22- - Blood cultures NGTD - Urine culture + > 100k E Coli - Sensitivities pending - Continue IVF - Monitor I+Os, fever curve, WBC Flu-like symptoms 02/22/2015 02/28/2015 Overview: Complains of nausea, vomiting and myalgia with sick contacts. Flu A and B negative Symptoms of one week duration. Beyond the time frame to receive tamiflu. PLAN - Influenza A & B - Negative - Metoclopramide for nausea DVT prophylaxis 02/22/2015 02/28/2015 Overview: PLAN - Heparin 5000 units q 12 UTI (urinary tract infection) 06/10/2013 Post-dural puncture headache 06/10/2013 Urinary tract infection, E. coli 03/17/2013 09/28/2013 Need for prophylactic immunotherapy 06/13/2011 09/28/2013 Anemia, unspecified 04/11/2009 11/21/2011 Unspecified disease of white blood cells 007 01/13/2011 End stage renal disease 10/16/2005 09/28/20 13 Nephritis and nephropathy, n ot specified as acute or chronic, with other specified pathological lesion in kidney, in diseases classified elsewhere 10/16/2005 09/01/2018 Legionnaires' disease 09/28/2013 Overview: during SLE flare, serum antigen +, but urine antigen negative; treated anyway Cough 09/28/2013 Overview: jeanna induced Cystitis 09/01/2018 Overview: x1 summer 2004 (presented with fever) documented as of this encounter (statuses as of 05/08/2022) [facility]04-[facility]2015 History of Past illness Narrative* Problem Noted Date Resolved Date SUMMARY 02/22/2015 09/01/2018 Overview: Ms Sauceda is a 39 yo F with a PMHx/o kidney transplant, HTN, SLE, hypothyroidism who presented to the ER with fevers (103F), Hypertension, SLE, Hypothyroidism who comes to the ER with flu like symptoms. She was found to have + UA and was started on Cipro initially which was changed to Zosyn on the RNF. UTI (lower urinary tract infection) 02/22/2015 02/28/2015 Overview: Fevers, N/V UA positive for WBC 11-25 with leukoesterase Received one dose of Ciprofloxacin in the ED. Prior history of Klebsiella oxytoca sensitive to cipro and zosyn and Ecoli which was resistant to ciprofloxacin but sensitive to Zosyn. Ultrasound of transplanted kidney (done 02/23/15) was unremarkable PLAN - Continue Zosyn (02/22- - Blood cultures NGTD - Urine culture + > 100k E Coli - Sensitivities pending - Continue IVF - Monitor I+Os, fever curve, WBC Flu-like symptoms 02/22/2015 02/28/2015 Overview: Complains of nausea, vomiting and myalgia with sick contacts. Flu A and B negative Symptoms of one week duration. Beyond the time frame to receive tamiflu. PLAN - Influenza A & B - Negative - Metoclopramide for nausea DVT prophylaxis 02/22/2015 02/28/2015 Overview: PLAN - Heparin 5000 units q 12 UTI (urinary tract infection) 06/10/2013 Post-dural puncture headache 06/10/2013 Urinary tract infection, E. coli 03/17/2013 09/28/2013 Need for prophylactic immunotherapy 06/13/2011 09/28/2013 Anemia, unspecified 04/11/2009 11/21/2011 Unspecified disease of white blood cells 007 01/13/2011 End stage renal disease 10/16/2005 09/28/20 13 Nephritis and nephropathy, n ot specified as acute or chronic, with other specified pathological lesion in kidney, in diseases classified elsewhere 10/16/2005 09/01/2018 Legionnaires' disease 09/28/2013 Overview: during SLE flare, serum antigen +, but urine antigen negative; treated anyway Cough 09/28/2013 Overview: jeanna induced Cystitis 09/01/2018 Overview: x1 summer 2004 (presented with fever) documented as of this encounter (statuses as of 05/08/2022) [facility] History of Past illness Narrative* Problem Noted Date Resolved Date SUMMARY 02/22/2015 09/01/2018 Overview: Ms Sauceda is a 39 yo F with a PMHx/o kidney transplant, HTN, SLE, hypothyroidism who presented to the ER with fevers (103F), Hypertension, SLE, Hypothyroidism who comes to the ER with flu like symptoms. She was found to have + UA and was started on Cipro initially which was changed to Zosyn on the RNF. UTI (lower urinary tract infection) 02/22/2015 02/28/2015 Overview: Fevers, N/V UA positive for WBC 11-25 with leukoesterase Received one dose of Ciprofloxacin in the ED. Prior history of Klebsiella oxytoca sensitive to cipro and zosyn and Ecoli which was resistant to ciprofloxacin but sensitive to Zosyn. Ultrasound of transplanted kidney (done 02/23/15) was unremarkable PLAN - Continue Zosyn (02/22- - Blood cultures NGTD - Urine culture + > 100k E Coli - Sensitivities pending - Continue IVF - Monitor I+Os, fever curve, WBC Flu-like symptoms 02/22/2015 02/28/2015 Overview: Complains of nausea, vomiting and myalgia with sick contacts. Flu A and B negative Symptoms of one week duration. Beyond the time frame to receive tamiflu. PLAN - Influenza A & B - Negative - Metoclopramide for nausea DVT prophylaxis 02/22/2015 02/28/2015 Overview: PLAN - Heparin 5000 units q 12 UTI (urinary tract infection) 06/10/2013 Post-dural puncture headache 06/10/2013 Urinary tract infection, E. coli 03/17/2013 09/28/2013 Need for prophylactic immunotherapy 06/13/2011 09/28/2013 Anemia, unspecified 04/11/2009 11/21/2011 Unspecified disease of white blood cells 007 01/13/2011 End stage renal disease 10/16/2005 09/28/20 13 Nephritis and nephropathy, n ot specified as acute or chronic, with other specified pathological lesion in kidney, in diseases classified elsewhere 10/16/2005 09/01/2018 Legionnaires' disease 09/28/2013 Overview: during SLE flare, serum antigen +, but urine antigen negative; treated anyway Cough 09/28/2013 Overview: jeanna induced Cystitis 09/01/2018 Overview: x1 summer 2004 (presented with fever) documented as of this encounter (statuses as of 06/05/2022) [facility]04-09-2015 History of Past illness Narrative* Problem Noted Date Resolved Date SUMMARY 02/22/2015 09/01/2018 Overview: Ms Sauceda is a 39 yo F with a PMHx/o kidney transplant, HTN, SLE, hypothyroidism who presented to the ER with fevers (103F), Hypertension, SLE, Hypothyroidism who comes to the ER with flu like symptoms. She was found to have + UA and was started on Cipro initially which was changed to Zosyn on the RNF. UTI (lower urinary tract infection) 02/22/2015 02/28/2015 Overview: Fevers, N/V UA positive for WBC 11-25 with leukoesterase Received one dose of Ciprofloxacin in the ED. Prior history of Klebsiella oxytoca sensitive to cipro and zosyn and Ecoli which was resistant to ciprofloxacin but sensitive to Zosyn. Ultrasound of transplanted kidney (done 02/23/15) was unremarkable PLAN - Continue Zosyn (02/22- - Blood cultures NGTD - Urine culture + > 100k E Coli - Sensitivities pending - Continue IVF - Monitor I+Os, fever curve, WBC Flu-like symptoms 02/22/2015 02/28/2015 Overview: Complains of nausea, vomiting and myalgia with sick contacts. Flu A and B negative Symptoms of one week duration. Beyond the time frame to receive tamiflu. PLAN - Influenza A & B - Negative - Metoclopramide for nausea DVT prophylaxis 02/22/2015 02/28/2015 Overview: PLAN - Heparin 5000 units q 12 UTI (urinary tract infection) 06/10/2013 Post-dural puncture headache 06/10/2013 Urinary tract infection, E. coli 03/17/2013 09/28/2013 Need for prophylactic immunotherapy 06/13/2011 09/28/2013 Anemia, unspecified 04/11/2009 11/21/2011 Unspecified disease of white blood cells 007 01/13/2011 End stage renal disease 10/16/2005 09/28/20 13 Nephritis and nephropathy, n ot specified as acute or chronic, with other specified pathological lesion in kidney, in diseases classified elsewhere 10/16/2005 09/01/2018 Legionnaires' disease 09/28/2013 Overview: during SLE flare, serum antigen +, but urine antigen negative; treated anyway Cough 09/28/2013 Overview: jeanna induced Cystitis 09/01/2018 Overview: x1 summer 2004 (presented with fever) documented as of this encounter (statuses as of 06/10/2022) [facility]04-09-2015 History of Past illness Narrative* Problem Noted Date Resolved Date SUMMARY 02/22/2015 09/01/2018 Overview: Ms Sauceda is a 39 yo F with a PMHx/o kidney transplant, HTN, SLE, hypothyroidism who presented to the ER with fevers (103F), Hypertension, SLE, Hypothyroidism who comes to the ER with flu like symptoms. She was found to have + UA and was started on Cipro initially which was changed to Zosyn on the RNF. UTI (lower urinary tract infection) 02/22/2015 02/28/2015 Overview: Fevers, N/V UA positive for WBC 11-25 with leukoesterase Received one dose of Ciprofloxacin in the ED. Prior history of Klebsiella oxytoca sensitive to cipro and zosyn and Ecoli which was resistant to ciprofloxacin but sensitive to Zosyn. Ultrasound of transplanted kidney (done 02/23/15) was unremarkable PLAN - Continue Zosyn (02/22- - Blood cultures NGTD - Urine culture + > 100k E Coli - Sensitivities pending - Continue IVF - Monitor I+Os, fever curve, WBC Flu-like symptoms 02/22/2015 02/28/2015 Overview: Complains of nausea, vomiting and myalgia with sick contacts. Flu A and B negative Symptoms of one week duration. Beyond the time frame to receive tamiflu. PLAN - Influenza A & B - Negative - Metoclopramide for nausea DVT prophylaxis 02/22/2015 02/28/2015 Overview: PLAN - Heparin 5000 units q 12 UTI (urinary tract infection) 06/10/2013 Post-dural puncture headache 06/10/2013 Urinary tract infection, E. coli 03/17/2013 09/28/2013 Need for prophylactic immunotherapy 06/13/2011 09/28/2013 Anemia, unspecified 04/11/2009 11/21/2011 Unspecified disease of white blood cells 007 01/13/2011 End stage renal disease 10/16/2005 09/28/20 13 Nephritis and nephropathy, n ot specified as acute or chronic, with other specified pathological lesion in kidney, in diseases classified elsewhere 10/16/2005 09/01/2018 Legionnaires' disease 09/28/2013 Overview: during SLE flare, serum antigen +, but urine antigen negative; treated anyway Cough 09/28/2013 Overview: jeanna induced Cystitis 09/01/2018 Overview: x1 summer 2004 (presented with fever) documented as of this encounter (statuses as of 06/18/2022) [facility]04-09-2015 History of Past illness Narrative* Problem Noted Date Resolved Date SUMMARY 02/22/2015 09/01/2018 Overview: Ms Sauceda is a 39 yo F with a PMHx/o kidney transplant, HTN, SLE, hypothyroidism who presented to the ER with fevers (103F), Hypertension, SLE, Hypothyroidism who comes to the ER with flu like symptoms. She was found to have + UA and was started on Cipro initially which was changed to Zosyn on the RNF. UTI (lower urinary tract infection) 02/22/2015 02/28/2015 Overview: Fevers, N/V UA positive for WBC 11-25 with leukoesterase Received one dose of Ciprofloxacin in the ED. Prior history of Klebsiella oxytoca sensitive to cipro and zosyn and Ecoli which was resistant to ciprofloxacin but sensitive to Zosyn. Ultrasound of transplanted kidney (done 02/23/15) was unremarkable PLAN - Continue Zosyn (02/22- - Blood cultures NGTD - Urine culture + > 100k E Coli - Sensitivities pending - Continue IVF - Monitor I+Os, fever curve, WBC Flu-like symptoms 02/22/2015 02/28/2015 Overview: Complains of nausea, vomiting and myalgia with sick contacts. Flu A and B negative Symptoms of one week duration. Beyond the time frame to receive tamiflu. PLAN - Influenza A & B - Negative - Metoclopramide for nausea DVT prophylaxis 02/22/2015 02/28/2015 Overview: PLAN - Heparin 5000 units q 12 UTI (urinary tract infection) 06/10/2013 Post-dural puncture headache 06/10/2013 Urinary tract infection, E. coli 03/17/2013 09/28/2013 Need for prophylactic immunotherapy 06/13/2011 09/28/2013 Anemia, unspecified 04/11/2009 11/21/2011 Unspecified disease of white blood cells 007 01/13/2011 End stage renal disease 10/16/2005 09/28/20 13 Nephritis and nephropathy, n ot specified as acute or chronic, with other specified pathological lesion in kidney, in diseases classified elsewhere 10/16/2005 09/01/2018 Legionnaires' disease 09/28/2013 Overview: during SLE flare, serum antigen +, but urine antigen negative; treated anyway Cough 09/28/2013 Overview: jeanna induced Cystitis 09/01/2018 Overview: x1 summer 2004 (presented with fever) documented as of this encounter (statuses as of 06/18/2022) [facility]04-[facility]-2015 History of Past illness Narrative* Problem Noted Date Resolved Date SUMMARY 02/22/2015 09/01/2018 Overview: Ms Sauceda is a 39 yo F with a PMHx/o kidney transplant, HTN, SLE, hypothyroidism who presented to the ER with fevers (103F), Hypertension, SLE, Hypothyroidism who comes to the ER with flu like symptoms. She was found to have + UA and was started on Cipro initially which was changed to Zosyn on the RNF. UTI (lower urinary tract infection) 02/22/2015 02/28/2015 Overview: Fevers, N/V UA positive for WBC 11-25 with leukoesterase Received one dose of Ciprofloxacin in the ED. Prior history of Klebsiella oxytoca sensitive to cipro and zosyn and Ecoli which was resistant to ciprofloxacin but sensitive to Zosyn. Ultrasound of transplanted kidney (done 02/23/15) was unremarkable PLAN - Continue Zosyn (02/22- - Blood cultures NGTD - Urine culture + > 100k E Coli - Sensitivities pending - Continue IVF - Monitor I+Os, fever curve, WBC Flu-like symptoms 02/22/2015 02/28/2015 Overview: Complains of nausea, vomiting and myalgia with sick contacts. Flu A and B negative Symptoms of one week duration. Beyond the time frame to receive tamiflu. PLAN - Influenza A & B - Negative - Metoclopramide for nausea DVT prophylaxis 02/22/2015 02/28/2015 Overview: PLAN - Heparin 5000 units q 12 UTI (urinary tract infection) 06/10/2013 Post-dural puncture headache 06/10/2013 Urinary tract infection, E. coli 03/17/2013 09/28/2013 Need for prophylactic immunotherapy 06/13/2011 09/28/2013 Anemia, unspecified 04/11/2009 11/21/2011 Unspecified disease of white blood cells 007 01/13/2011 End stage renal disease 10/16/2005 09/28/20 13 Nephritis and nephropathy, n ot specified as acute or chronic, with other specified pathological lesion in kidney, in diseases classified elsewhere 10/16/2005 09/01/2018 Legionnaires' disease 09/28/2013 Overview: during SLE flare, serum antigen +, but urine antigen negative; treated anyway Cough 09/28/2013 Overview: jeanna induced Cystitis 09/01/2018 Overview: x1 summer 2004 (presented with fever) documented as of this encounter (statuses as of 06/27/2022) [facility]04-[facility]2015 History of Past illness Narrative* Problem Noted Date Resolved Date SUMMARY 02/22/2015 09/01/2018 Overview: Ms Sauceda is a 39 yo F with a PMHx/o kidney transplant, HTN, SLE, hypothyroidism who presented to the ER with fevers (103F), Hypertension, SLE, Hypothyroidism who comes to the ER with flu like symptoms. She was found to have + UA and was started on Cipro initially which was changed to Zosyn on the RNF. UTI (lower urinary tract infection) 02/22/2015 02/28/2015 Overview: Fevers, N/V UA positive for WBC 11-25 with leukoesterase Received one dose of Ciprofloxacin in the ED. Prior history of Klebsiella oxytoca sensitive to cipro and zosyn and Ecoli which was resistant to ciprofloxacin but sensitive to Zosyn. Ultrasound of transplanted kidney (done 02/23/15) was unremarkable PLAN - Continue Zosyn (02/22- - Blood cultures NGTD - Urine culture + > 100k E Coli - Sensitivities pending - Continue IVF - Monitor I+Os, fever curve, WBC Flu-like symptoms 02/22/2015 02/28/2015 Overview: Complains of nausea, vomiting and myalgia with sick contacts. Flu A and B negative Symptoms of one week duration. Beyond the time frame to receive tamiflu. PLAN - Influenza A & B - Negative - Metoclopramide for nausea DVT prophylaxis 02/22/2015 02/28/2015 Overview: PLAN - Heparin 5000 units q 12 UTI (urinary tract infection) 06/10/2013 Post-dural puncture headache 06/10/2013 Urinary tract infection, E. coli 03/17/2013 09/28/2013 Need for prophylactic immunotherapy 06/13/2011 09/28/2013 Anemia, unspecified 04/11/2009 11/21/2011 Unspecified disease of white blood cells 007 01/13/2011 End stage renal disease 10/16/2005 09/28/20 13 Nephritis and nephropathy, n ot specified as acute or chronic, with other specified pathological lesion in kidney, in diseases classified elsewhere 10/16/2005 09/01/2018 Legionnaires' disease 09/28/2013 Overview: during SLE flare, serum antigen +, but urine antigen negative; treated anyway Cough 09/28/2013 Overview: jeanna induced Cystitis 09/01/2018 Overview: x1 summer 2004 (presented with fever) documented as of this encounter (statuses as of 07/03/2022) [facility]04-[facility]2015 History of Past illness Narrative* Problem Noted Date Resolved Date SUMMARY 02/22/2015 09/01/2018 Overview: Ms Sauceda is a 39 yo F with a PMHx/o kidney transplant, HTN, SLE, hypothyroidism who presented to the ER with fevers (103F), Hypertension, SLE, Hypothyroidism who comes to the ER with flu like symptoms. She was found to have + UA and was started on Cipro initially which was changed to Zosyn on the RNF. UTI (lower urinary tract infection) 02/22/2015 02/28/2015 Overview: Fevers, N/V UA positive for WBC 11-25 with leukoesterase Received one dose of Ciprofloxacin in the ED. Prior history of Klebsiella oxytoca sensitive to cipro and zosyn and Ecoli which was resistant to ciprofloxacin but sensitive to Zosyn. Ultrasound of transplanted kidney (done 02/23/15) was unremarkable PLAN - Continue Zosyn (02/22- - Blood cultures NGTD - Urine culture + > 100k E Coli - Sensitivities pending - Continue IVF - Monitor I+Os, fever curve, WBC Flu-like symptoms 02/22/2015 02/28/2015 Overview: Complains of nausea, vomiting and myalgia with sick contacts. Flu A and B negative Symptoms of one week duration. Beyond the time frame to receive tamiflu. PLAN - Influenza A & B - Negative - Metoclopramide for nausea DVT prophylaxis 02/22/2015 02/28/2015 Overview: PLAN - Heparin 5000 units q 12 UTI (urinary tract infection) 06/10/2013 Post-dural puncture headache 06/10/2013 Urinary tract infection, E. coli 03/17/2013 09/28/2013 Need for prophylactic immunotherapy 06/13/2011 09/28/2013 Anemia, unspecified 04/11/2009 11/21/2011 Unspecified disease of white blood cells 007 01/13/2011 End stage renal disease 10/16/2005 09/28/20 13 Nephritis and nephropathy, n ot specified as acute or chronic, with other specified pathological lesion in kidney, in diseases classified elsewhere 10/16/2005 09/01/2018 Legionnaires' disease 09/28/2013 Overview: during SLE flare, serum antigen +, but urine antigen negative; treated anyway Cough 09/28/2013 Overview: jeanna induced Cystitis 09/01/2018 Overview: x1 summer 2004 (presented with fever) documented as of this encounter (statuses as of 07/03/2022) [facility]04-[facility]2015 History of Past illness Narrative* Problem Noted Date Resolved Date SUMMARY 02/22/2015 09/01/2018 Overview: Ms Sauceda is a 39 yo F with a PMHx/o kidney transplant, HTN, SLE, hypothyroidism who presented to the ER with fevers (103F), Hypertension, SLE, Hypothyroidism who comes to the ER with flu like symptoms. She was found to have + UA and was started on Cipro initially which was changed to Zosyn on the RNF. UTI (lower urinary tract infection) 02/22/2015 02/28/2015 Overview: Fevers, N/V UA positive for WBC 11-25 with leukoesterase Received one dose of Ciprofloxacin in the ED. Prior history of Klebsiella oxytoca sensitive to cipro and zosyn and Ecoli which was resistant to ciprofloxacin but sensitive to Zosyn. Ultrasound of transplanted kidney (done 02/23/15) was unremarkable PLAN - Continue Zosyn (02/22- - Blood cultures NGTD - Urine culture + > 100k E Coli - Sensitivities pending - Continue IVF - Monitor I+Os, fever curve, WBC Flu-like symptoms 02/22/2015 02/28/2015 Overview: Complains of nausea, vomiting and myalgia with sick contacts. Flu A and B negative Symptoms of one week duration. Beyond the time frame to receive tamiflu. PLAN - Influenza A & B - Negative - Metoclopramide for nausea DVT prophylaxis 02/22/2015 02/28/2015 Overview: PLAN - Heparin 5000 units q 12 UTI (urinary tract infection) 06/10/2013 Post-dural puncture headache 06/10/2013 Urinary tract infection, E. coli 03/17/2013 09/28/2013 Need for prophylactic immunotherapy 06/13/2011 09/28/2013 Anemia, unspecified 04/11/2009 11/21/2011 Unspecified disease of white blood cells 007 01/13/2011 End stage renal disease 10/16/2005 09/28/20 13 Nephritis and nephropathy, n ot specified as acute or chronic, with other specified pathological lesion in kidney, in diseases classified elsewhere 10/16/2005 09/01/2018 Legionnaires' disease 09/28/2013 Overview: during SLE flare, serum antigen +, but urine antigen negative; treated anyway Cough 09/28/2013 Overview: jeanna induced Cystitis 09/01/2018 Overview: x1 summer 2004 (presented with fever) documented as of this encounter (statuses as of 07/11/2022) [facility]04-[facility]2015 History of Past illness Narrative* Problem Noted Date Resolved Date SUMMARY 02/22/2015 09/01/2018 Overview: Ms Sauceda is a 39 yo F with a PMHx/o kidney transplant, HTN, SLE, hypothyroidism who presented to the ER with fevers (103F), Hypertension, SLE, Hypothyroidism who comes to the ER with flu like symptoms. She was found to have + UA and was started on Cipro initially which was changed to Zosyn on the RNF. UTI (lower urinary tract infection) 02/22/2015 02/28/2015 Overview: Fevers, N/V UA positive for WBC 11-25 with leukoesterase Received one dose of Ciprofloxacin in the ED. Prior history of Klebsiella oxytoca sensitive to cipro and zosyn and Ecoli which was resistant to ciprofloxacin but sensitive to Zosyn. Ultrasound of transplanted kidney (done 02/23/15) was unremarkable PLAN - Continue Zosyn (02/22- - Blood cultures NGTD - Urine culture + > 100k E Coli - Sensitivities pending - Continue IVF - Monitor I+Os, fever curve, WBC Flu-like symptoms 02/22/2015 02/28/2015 Overview: Complains of nausea, vomiting and myalgia with sick contacts. Flu A and B negative Symptoms of one week duration. Beyond the time frame to receive tamiflu. PLAN - Influenza A & B - Negative - Metoclopramide for nausea DVT prophylaxis 02/22/2015 02/28/2015 Overview: PLAN - Heparin 5000 units q 12 UTI (urinary tract infection) 06/10/2013 Post-dural puncture headache 06/10/2013 Urinary tract infection, E. coli 03/17/2013 09/28/2013 Need for prophylactic immunotherapy 06/13/2011 09/28/2013 Anemia, unspecified 04/11/2009 11/21/2011 Unspecified disease of white blood cells 007 01/13/2011 End stage renal disease 10/16/2005 09/28/20 13 Nephritis and nephropathy, n ot specified as acute or chronic, with other specified pathological lesion in kidney, in diseases classified elsewhere 10/16/2005 09/01/2018 Legionnaires' disease 09/28/2013 Overview: during SLE flare, serum antigen +, but urine antigen negative; treated anyway Cough 09/28/2013 Overview: jeanna induced Cystitis 09/01/2018 Overview: x1 summer 2004 (presented with fever) documented as of this encounter (statuses as of 07/17/2022) [facility]04[facility]2015 History of Past illness Narrative* Problem Noted Date Resolved Date SUMMARY 02/22/2015 09/01/2018 Overview: Ms Sauceda is a 39 yo F with a PMHx/o kidney transplant, HTN, SLE, hypothyroidism who presented to the ER with fevers (103F), Hypertension, SLE, Hypothyroidism who comes to the ER with flu like symptoms. She was found to have + UA and was started on Cipro initially which was changed to Zosyn on the RNF. UTI (lower urinary tract infection) 02/22/2015 02/28/2015 Overview: Fevers, N/V UA positive for WBC 11-25 with leukoesterase Received one dose of Ciprofloxacin in the ED. Prior history of Klebsiella oxytoca sensitive to cipro and zosyn and Ecoli which was resistant to ciprofloxacin but sensitive to Zosyn. Ultrasound of transplanted kidney (done 02/23/15) was unremarkable PLAN - Continue Zosyn (02/22- - Blood cultures NGTD - Urine culture + > 100k E Coli - Sensitivities pending - Continue IVF - Monitor I+Os, fever curve, WBC Flu-like symptoms 02/22/2015 02/28/2015 Overview: Complains of nausea, vomiting and myalgia with sick contacts. Flu A and B negative Symptoms of one week duration. Beyond the time frame to receive tamiflu. PLAN - Influenza A & B - Negative - Metoclopramide for nausea DVT prophylaxis 02/22/2015 02/28/2015 Overview: PLAN - Heparin 5000 units q 12 UTI (urinary tract infection) 06/10/2013 Post-dural puncture headache 06/10/2013 Urinary tract infection, E. coli 03/17/2013 09/28/2013 Need for prophylactic immunotherapy 06/13/2011 09/28/2013 Anemia, unspecified 04/11/2009 11/21/2011 Unspecified disease of white blood cells 007 01/13/2011 End stage renal disease 10/16/2005 09/28/20 13 Nephritis and nephropathy, n ot specified as acute or chronic, with other specified pathological lesion in kidney, in diseases classified elsewhere 10/16/2005 09/01/2018 Legionnaires' disease 09/28/2013 Overview: during SLE flare, serum antigen +, but urine antigen negative; treated anyway Cough 09/28/2013 Overview: jeanna induced Cystitis 09/01/2018 Overview: x1 summer 2004 (presented with fever) documented as of this encounter (statuses as of 07/17/2022) [facility]04[facility] History of Past illness Narrative* Problem Noted Date Resolved Date SUMMARY 02/22/2015 09/01/2018 Overview: Ms Sauceda is a 39 yo F with a PMHx/o kidney transplant, HTN, SLE, hypothyroidism who presented to the ER with fevers (103F), Hypertension, SLE, Hypothyroidism who comes to the ER with flu like symptoms. She was found to have + UA and was started on Cipro initially which was changed to Zosyn on the RNF. UTI (lower urinary tract infection) 02/22/2015 02/28/2015 Overview: Fevers, N/V UA positive for WBC 11-25 with leukoesterase Received one dose of Ciprofloxacin in the ED. Prior history of Klebsiella oxytoca sensitive to cipro and zosyn and Ecoli which was resistant to ciprofloxacin but sensitive to Zosyn. Ultrasound of transplanted kidney (done 02/23/15) was unremarkable PLAN - Continue Zosyn (02/22- - Blood cultures NGTD - Urine culture + > 100k E Coli - Sensitivities pending - Continue IVF - Monitor I+Os, fever curve, WBC Flu-like symptoms 02/22/2015 02/28/2015 Overview: Complains of nausea, vomiting and myalgia with sick contacts. Flu A and B negative Symptoms of one week duration. Beyond the time frame to receive tamiflu. PLAN - Influenza A & B - Negative - Metoclopramide for nausea DVT prophylaxis 02/22/2015 02/28/2015 Overview: PLAN - Heparin 5000 units q 12 UTI (urinary tract infection) 06/10/2013 Post-dural puncture headache 06/10/2013 Urinary tract infection, E. coli 03/17/2013 09/28/2013 Need for prophylactic immunotherapy 06/13/2011 09/28/2013 Anemia, unspecified 04/11/2009 11/21/2011 Unspecified disease of white blood cells 007 01/13/2011 End stage renal disease 10/16/2005 09/28/20 13 Nephritis and nephropathy, n ot specified as acute or chronic, with other specified pathological lesion in kidney, in diseases classified elsewhere 10/16/2005 09/01/2018 Legionnaires' disease 09/28/2013 Overview: during SLE flare, serum antigen +, but urine antigen negative; treated anyway Cough 09/28/2013 Overview: jeanna induced Cystitis 09/01/2018 Overview: x1 summer 2004 (presented with fever) documented as of this encounter (statuses as of 07/24/2022) [facility] History of Past illness Narrative* Problem Noted Date Resolved Date SUMMARY 02/22/2015 09/01/2018 Overview: Ms Sauceda is a 39 yo F with a PMHx/o kidney transplant, HTN, SLE, hypothyroidism who presented to the ER with fevers (103F), Hypertension, SLE, Hypothyroidism who comes to the ER with flu like symptoms. She was found to have + UA and was started on Cipro initially which was changed to Zosyn on the RNF. UTI (lower urinary tract infection) 02/22/2015 02/28/2015 Overview: Fevers, N/V UA positive for WBC 11-25 with leukoesterase Received one dose of Ciprofloxacin in the ED. Prior history of Klebsiella oxytoca sensitive to cipro and zosyn and Ecoli which was resistant to ciprofloxacin but sensitive to Zosyn. Ultrasound of transplanted kidney (done 02/23/15) was unremarkable PLAN - Continue Zosyn (02/22- - Blood cultures NGTD - Urine culture + > 100k E Coli - Sensitivities pending - Continue IVF - Monitor I+Os, fever curve, WBC Flu-like symptoms 02/22/2015 02/28/2015 Overview: Complains of nausea, vomiting and myalgia with sick contacts. Flu A and B negative Symptoms of one week duration. Beyond the time frame to receive tamiflu. PLAN - Influenza A & B - Negative - Metoclopramide for nausea DVT prophylaxis 02/22/2015 02/28/2015 Overview: PLAN - Heparin 5000 units q 12 UTI (urinary tract infection) 06/10/2013 Post-dural puncture headache 06/10/2013 Urinary tract infection, E. coli 03/17/2013 09/28/2013 Need for prophylactic immunotherapy 06/13/2011 09/28/2013 Anemia, unspecified 04/11/2009 11/21/2011 Unspecified disease of white blood cells 007 01/13/2011 End stage renal disease 10/16/2005 09/28/20 13 Nephritis and nephropathy, n ot specified as acute or chronic, with other specified pathological lesion in kidney, in diseases classified elsewhere 10/16/2005 09/01/2018 Legionnaires' disease 09/28/2013 Overview: during SLE flare, serum antigen +, but urine antigen negative; treated anyway Cough 09/28/2013 Overview: jeanna induced Cystitis 09/01/2018 Overview: x1 summer 2004 (presented with fever) documented as of this encounter (statuses as of 07/31/2022) [facility]04-09-2015 History of Past illness Narrative* Problem Noted Date Resolved Date SUMMARY 02/22/2015 09/01/2018 Overview: Ms Sauceda is a 39 yo F with a PMHx/o kidney transplant, HTN, SLE, hypothyroidism who presented to the ER with fevers (103F), Hypertension, SLE, Hypothyroidism who comes to the ER with flu like symptoms. She was found to have + UA and was started on Cipro initially which was changed to Zosyn on the RNF. UTI (lower urinary tract infection) 02/22/2015 02/28/2015 Overview: Fevers, N/V UA positive for WBC 11-25 with leukoesterase Received one dose of Ciprofloxacin in the ED. Prior history of Klebsiella oxytoca sensitive to cipro and zosyn and Ecoli which was resistant to ciprofloxacin but sensitive to Zosyn. Ultrasound of transplanted kidney (done 02/23/15) was unremarkable PLAN - Continue Zosyn (02/22- - Blood cultures NGTD - Urine culture + > 100k E Coli - Sensitivities pending - Continue IVF - Monitor I+Os, fever curve, WBC Flu-like symptoms 02/22/2015 02/28/2015 Overview: Complains of nausea, vomiting and myalgia with sick contacts. Flu A and B negative Symptoms of one week duration. Beyond the time frame to receive tamiflu. PLAN - Influenza A & B - Negative - Metoclopramide for nausea DVT prophylaxis 02/22/2015 02/28/2015 Overview: PLAN - Heparin 5000 units q 12 UTI (urinary tract infection) 06/10/2013 Post-dural puncture headache 06/10/2013 Urinary tract infection, E. coli 03/17/2013 09/28/2013 Need for prophylactic immunotherapy 06/13/2011 09/28/2013 Anemia, unspecified 04/11/2009 11/21/2011 Unspecified disease of white blood cells 007 01/13/2011 End stage renal disease 10/16/2005 09/28/20 13 Nephritis and nephropathy, n ot specified as acute or chronic, with other specified pathological lesion in kidney, in diseases classified elsewhere 10/16/2005 09/01/2018 Legionnaires' disease 09/28/2013 Overview: during SLE flare, serum antigen +, but urine antigen negative; treated anyway Cough 09/28/2013 Overview: jeanna induced Cystitis 09/01/2018 Overview: x1 summer 2004 (presented with fever) documented as of this encounter (statuses as of 09/02/2022) [facility]04-09-2015 History of Past illness Narrative* Problem Noted Date Resolved Date SUMMARY 02/22/2015 09/01/2018 Overview: Ms Sauceda is a 39 yo F with a PMHx/o kidney transplant, HTN, SLE, hypothyroidism who presented to the ER with fevers (103F), Hypertension, SLE, Hypothyroidism who comes to the ER with flu like symptoms. She was found to have + UA and was started on Cipro initially which was changed to Zosyn on the RNF. UTI (lower urinary tract infection) 02/22/2015 02/28/2015 Overview: Fevers, N/V UA positive for WBC 11-25 with leukoesterase Received one dose of Ciprofloxacin in the ED. Prior history of Klebsiella oxytoca sensitive to cipro and zosyn and Ecoli which was resistant to ciprofloxacin but sensitive to Zosyn. Ultrasound of transplanted kidney (done 02/23/15) was unremarkable PLAN - Continue Zosyn (02/22- - Blood cultures NGTD - Urine culture + > 100k E Coli - Sensitivities pending - Continue IVF - Monitor I+Os, fever curve, WBC Flu-like symptoms 02/22/2015 02/28/2015 Overview: Complains of nausea, vomiting and myalgia with sick contacts. Flu A and B negative Symptoms of one week duration. Beyond the time frame to receive tamiflu. PLAN - Influenza A & B - Negative - Metoclopramide for nausea DVT prophylaxis 02/22/2015 02/28/2015 Overview: PLAN - Heparin 5000 units q 12 UTI (urinary tract infection) 06/10/2013 Post-dural puncture headache 06/10/2013 Urinary tract infection, E. coli 03/17/2013 09/28/2013 Need for prophylactic immunotherapy 06/13/2011 09/28/2013 Anemia, unspecified 04/11/2009 11/21/2011 Unspecified disease of white blood cells 007 01/13/2011 End stage renal disease 10/16/2005 09/28/20 13 Nephritis and nephropathy, n ot specified as acute or chronic, with other specified pathological lesion in kidney, in diseases classified elsewhere 10/16/2005 09/01/2018 Legionnaires' disease 09/28/2013 Overview: during SLE flare, serum antigen +, but urine antigen negative; treated anyway Cough 09/28/2013 Overview: jeanna induced Cystitis 09/01/2018 Overview: x1 summer 2004 (presented with fever) documented as of this encounter (statuses as of 09/04/2022) [facility]04-09-2015 History of Past illness Narrative* Problem Noted Date Resolved Date SUMMARY 02/22/2015 09/01/2018 Overview: Ms Sauceda is a 39 yo F with a PMHx/o kidney transplant, HTN, SLE, hypothyroidism who presented to the ER with fevers (103F), Hypertension, SLE, Hypothyroidism who comes to the ER with flu like symptoms. She was found to have + UA and was started on Cipro initially which was changed to Zosyn on the RNF. UTI (lower urinary tract infection) 02/22/2015 02/28/2015 Overview: Fevers, N/V UA positive for WBC 11-25 with leukoesterase Received one dose of Ciprofloxacin in the ED. Prior history of Klebsiella oxytoca sensitive to cipro and zosyn and Ecoli which was resistant to ciprofloxacin but sensitive to Zosyn. Ultrasound of transplanted kidney (done 02/23/15) was unremarkable PLAN - Continue Zosyn (02/22- - Blood cultures NGTD - Urine culture + > 100k E Coli - Sensitivities pending - Continue IVF - Monitor I+Os, fever curve, WBC Flu-like symptoms 02/22/2015 02/28/2015 Overview: Complains of nausea, vomiting and myalgia with sick contacts. Flu A and B negative Symptoms of one week duration. Beyond the time frame to receive tamiflu. PLAN - Influenza A & B - Negative - Metoclopramide for nausea DVT prophylaxis 02/22/2015 02/28/2015 Overview: PLAN - Heparin 5000 units q 12 UTI (urinary tract infection) 06/10/2013 Post-dural puncture headache 06/10/2013 Urinary tract infection, E. coli 03/17/2013 09/28/2013 Need for prophylactic immunotherapy 06/13/2011 09/28/2013 Anemia, unspecified 04/11/2009 11/21/2011 Unspecified disease of white blood cells 007 01/13/2011 End stage renal disease 10/16/2005 09/28/20 13 Nephritis and nephropathy, n ot specified as acute or chronic, with other specified pathological lesion in kidney, in diseases classified elsewhere 10/16/2005 09/01/2018 Legionnaires' disease 09/28/2013 Overview: during SLE flare, serum antigen +, but urine antigen negative; treated anyway Cough 09/28/2013 Overview: jeanna induced Cystitis 09/01/2018 Overview: x1 summer 2004 (presented with fever) documented as of this encounter (statuses as of 09/07/2022) [facility]04-[facility]2015 History of Past illness Narrative* Problem Noted Date Resolved Date SUMMARY 02/22/2015 09/01/2018 Overview: Ms Sauceda is a 39 yo F with a PMHx/o kidney transplant, HTN, SLE, hypothyroidism who presented to the ER with fevers (103F), Hypertension, SLE, Hypothyroidism who comes to the ER with flu like symptoms. She was found to have + UA and was started on Cipro initially which was changed to Zosyn on the RNF. UTI (lower urinary tract infection) 02/22/2015 02/28/2015 Overview: Fevers, N/V UA positive for WBC 11-25 with leukoesterase Received one dose of Ciprofloxacin in the ED. Prior history of Klebsiella oxytoca sensitive to cipro and zosyn and Ecoli which was resistant to ciprofloxacin but sensitive to Zosyn. Ultrasound of transplanted kidney (done 02/23/15) was unremarkable PLAN - Continue Zosyn (02/22- - Blood cultures NGTD - Urine culture + > 100k E Coli - Sensitivities pending - Continue IVF - Monitor I+Os, fever curve, WBC Flu-like symptoms 02/22/2015 02/28/2015 Overview: Complains of nausea, vomiting and myalgia with sick contacts. Flu A and B negative Symptoms of one week duration. Beyond the time frame to receive tamiflu. PLAN - Influenza A & B - Negative - Metoclopramide for nausea DVT prophylaxis 02/22/2015 02/28/2015 Overview: PLAN - Heparin 5000 units q 12 UTI (urinary tract infection) 06/10/2013 Post-dural puncture headache 06/10/2013 Urinary tract infection, E. coli 03/17/2013 09/28/2013 Need for prophylactic immunotherapy 06/13/2011 09/28/2013 Anemia, unspecified 04/11/2009 11/21/2011 Unspecified disease of white blood cells 007 01/13/2011 End stage renal disease 10/16/2005 09/28/20 13 Nephritis and nephropathy, n ot specified as acute or chronic, with other specified pathological lesion in kidney, in diseases classified elsewhere 10/16/2005 09/01/2018 Legionnaires' disease 09/28/2013 Overview: during SLE flare, serum antigen +, but urine antigen negative; treated anyway Cough 09/28/2013 Overview: jeanna induced Cystitis 09/01/2018 Overview: x1 summer 2004 (presented with fever) documented as of this encounter (statuses as of 09/08/2022) [facility]04-[facility]2015 History of Past illness Narrative* Problem Noted Date Resolved Date SUMMARY 02/22/2015 09/01/2018 Overview: Ms Sauceda is a 39 yo F with a PMHx/o kidney transplant, HTN, SLE, hypothyroidism who presented to the ER with fevers (103F), Hypertension, SLE, Hypothyroidism who comes to the ER with flu like symptoms. She was found to have + UA and was started on Cipro initially which was changed to Zosyn on the RNF. UTI (lower urinary tract infection) 02/22/2015 02/28/2015 Overview: Fevers, N/V UA positive for WBC 11-25 with leukoesterase Received one dose of Ciprofloxacin in the ED. Prior history of Klebsiella oxytoca sensitive to cipro and zosyn and Ecoli which was resistant to ciprofloxacin but sensitive to Zosyn. Ultrasound of transplanted kidney (done 02/23/15) was unremarkable PLAN - Continue Zosyn (02/22- - Blood cultures NGTD - Urine culture + > 100k E Coli - Sensitivities pending - Continue IVF - Monitor I+Os, fever curve, WBC Flu-like symptoms 02/22/2015 02/28/2015 Overview: Complains of nausea, vomiting and myalgia with sick contacts. Flu A and B negative Symptoms of one week duration. Beyond the time frame to receive tamiflu. PLAN - Influenza A & B - Negative - Metoclopramide for nausea DVT prophylaxis 02/22/2015 02/28/2015 Overview: PLAN - Heparin 5000 units q 12 UTI (urinary tract infection) 06/10/2013 Post-dural puncture headache 06/10/2013 Urinary tract infection, E. coli 03/17/2013 09/28/2013 Need for prophylactic immunotherapy 06/13/2011 09/28/2013 Anemia, unspecified 04/11/2009 11/21/2011 Unspecified disease of white blood cells 007 01/13/2011 End stage renal disease 10/16/2005 09/28/20 13 Nephritis and nephropathy, n ot specified as acute or chronic, with other specified pathological lesion in kidney, in diseases classified elsewhere 10/16/2005 09/01/2018 Legionnaires' disease 09/28/2013 Overview: during SLE flare, serum antigen +, but urine antigen negative; treated anyway Cough 09/28/2013 Overview: jeanna induced Cystitis 09/01/2018 Overview: x1 summer 2004 (presented with fever) documented as of this encounter (statuses as of 09/10/2022) [facility]04-[facility]2015 History of Past illness Narrative* Problem Noted Date Resolved Date SUMMARY 02/22/2015 09/01/2018 Overview: Ms Sauceda is a 39 yo F with a PMHx/o kidney transplant, HTN, SLE, hypothyroidism who presented to the ER with fevers (103F), Hypertension, SLE, Hypothyroidism who comes to the ER with flu like symptoms. She was found to have + UA and was started on Cipro initially which was changed to Zosyn on the RNF. UTI (lower urinary tract infection) 02/22/2015 02/28/2015 Overview: Fevers, N/V UA positive for WBC 11-25 with leukoesterase Received one dose of Ciprofloxacin in the ED. Prior history of Klebsiella oxytoca sensitive to cipro and zosyn and Ecoli which was resistant to ciprofloxacin but sensitive to Zosyn. Ultrasound of transplanted kidney (done 02/23/15) was unremarkable PLAN - Continue Zosyn (02/22- - Blood cultures NGTD - Urine culture + > 100k E Coli - Sensitivities pending - Continue IVF - Monitor I+Os, fever curve, WBC Flu-like symptoms 02/22/2015 02/28/2015 Overview: Complains of nausea, vomiting and myalgia with sick contacts. Flu A and B negative Symptoms of one week duration. Beyond the time frame to receive tamiflu. PLAN - Influenza A & B - Negative - Metoclopramide for nausea DVT prophylaxis 02/22/2015 02/28/2015 Overview: PLAN - Heparin 5000 units q 12 UTI (urinary tract infection) 06/10/2013 Post-dural puncture headache 06/10/2013 Urinary tract infection, E. coli 03/17/2013 09/28/2013 Need for prophylactic immunotherapy 06/13/2011 09/28/2013 Anemia, unspecified 04/11/2009 11/21/2011 Unspecified disease of white blood cells 007 01/13/2011 End stage renal disease 10/16/2005 09/28/20 13 Nephritis and nephropathy, n ot specified as acute or chronic, with other specified pathological lesion in kidney, in diseases classified elsewhere 10/16/2005 09/01/2018 Legionnaires' disease 09/28/2013 Overview: during SLE flare, serum antigen +, but urine antigen negative; treated anyway Cough 09/28/2013 Overview: jeanna induced Cystitis 09/01/2018 Overview: x1 summer 2004 (presented with fever) documented as of this encounter (statuses as of 10/02/2022) [facility]04-[facility]2015 History of Past illness Narrative* Problem Noted Date Resolved Date SUMMARY 02/22/2015 09/01/2018 Overview: Ms Sauceda is a 39 yo F with a PMHx/o kidney transplant, HTN, SLE, hypothyroidism who presented to the ER with fevers (103F), Hypertension, SLE, Hypothyroidism who comes to the ER with flu like symptoms. She was found to have + UA and was started on Cipro initially which was changed to Zosyn on the RNF. UTI (lower urinary tract infection) 02/22/2015 02/28/2015 Overview: Fevers, N/V UA positive for WBC 11-25 with leukoesterase Received one dose of Ciprofloxacin in the ED. Prior history of Klebsiella oxytoca sensitive to cipro and zosyn and Ecoli which was resistant to ciprofloxacin but sensitive to Zosyn. Ultrasound of transplanted kidney (done 02/23/15) was unremarkable PLAN - Continue Zosyn (02/22- - Blood cultures NGTD - Urine culture + > 100k E Coli - Sensitivities pending - Continue IVF - Monitor I+Os, fever curve, WBC Flu-like symptoms 02/22/2015 02/28/2015 Overview: Complains of nausea, vomiting and myalgia with sick contacts. Flu A and B negative Symptoms of one week duration. Beyond the time frame to receive tamiflu. PLAN - Influenza A & B - Negative - Metoclopramide for nausea DVT prophylaxis 02/22/2015 02/28/2015 Overview: PLAN - Heparin 5000 units q 12 UTI (urinary tract infection) 06/10/2013 Post-dural puncture headache 06/10/2013 Urinary tract infection, E. coli 03/17/2013 09/28/2013 Need for prophylactic immunotherapy 06/13/2011 09/28/2013 Anemia, unspecified 04/11/2009 11/21/2011 Unspecified disease of white blood cells 007 01/13/2011 End stage renal disease 10/16/2005 09/28/20 13 Nephritis and nephropathy, n ot specified as acute or chronic, with other specified pathological lesion in kidney, in diseases classified elsewhere 10/16/2005 09/01/2018 Legionnaires' disease 09/28/2013 Overview: during SLE flare, serum antigen +, but urine antigen negative; treated anyway Cough 09/28/2013 Overview: jeanna induced Cystitis 09/01/2018 Overview: x1 summer 2004 (presented with fever) documented as of this encounter (statuses as of 10/02/2022) [facility]04-[facility]2015 History of Past illness Narrative* Problem Noted Date Resolved Date SUMMARY 02/22/2015 09/01/2018 Overview: Ms Sauceda is a 39 yo F with a PMHx/o kidney transplant, HTN, SLE, hypothyroidism who presented to the ER with fevers (103F), Hypertension, SLE, Hypothyroidism who comes to the ER with flu like symptoms. She was found to have + UA and was started on Cipro initially which was changed to Zosyn on the RNF. UTI (lower urinary tract infection) 02/22/2015 02/28/2015 Overview: Fevers, N/V UA positive for WBC 11-25 with leukoesterase Received one dose of Ciprofloxacin in the ED. Prior history of Klebsiella oxytoca sensitive to cipro and zosyn and Ecoli which was resistant to ciprofloxacin but sensitive to Zosyn. Ultrasound of transplanted kidney (done 02/23/15) was unremarkable PLAN - Continue Zosyn (02/22- - Blood cultures NGTD - Urine culture + > 100k E Coli - Sensitivities pending - Continue IVF - Monitor I+Os, fever curve, WBC Flu-like symptoms 02/22/2015 02/28/2015 Overview: Complains of nausea, vomiting and myalgia with sick contacts. Flu A and B negative Symptoms of one week duration. Beyond the time frame to receive tamiflu. PLAN - Influenza A & B - Negative - Metoclopramide for nausea DVT prophylaxis 02/22/2015 02/28/2015 Overview: PLAN - Heparin 5000 units q 12 UTI (urinary tract infection) 06/10/2013 Post-dural puncture headache 06/10/2013 Urinary tract infection, E. coli 03/17/2013 09/28/2013 Need for prophylactic immunotherapy 06/13/2011 09/28/2013 Anemia, unspecified 04/11/2009 11/21/2011 Unspecified disease of white blood cells 007 01/13/2011 End stage renal disease 10/16/2005 09/28/20 13 Nephritis and nephropathy, n ot specified as acute or chronic, with other specified pathological lesion in kidney, in diseases classified elsewhere 10/16/2005 09/01/2018 Legionnaires' disease 09/28/2013 Overview: during SLE flare, serum antigen +, but urine antigen negative; treated anyway Cough 09/28/2013 Overview: jeanna induced Cystitis 09/01/2018 Overview: x1 summer 2004 (presented with fever) documented as of this encounter (statuses as of 10/07/2022) [facility]04[facility]2015 History of Past illness Narrative* Problem Noted Date Resolved Date SUMMARY 02/22/2015 09/01/2018 Overview: Ms Sauceda is a 39 yo F with a PMHx/o kidney transplant, HTN, SLE, hypothyroidism who presented to the ER with fevers (103F), Hypertension, SLE, Hypothyroidism who comes to the ER with flu like symptoms. She was found to have + UA and was started on Cipro initially which was changed to Zosyn on the RNF. UTI (lower urinary tract infection) 02/22/2015 02/28/2015 Overview: Fevers, N/V UA positive for WBC 11-25 with leukoesterase Received one dose of Ciprofloxacin in the ED. Prior history of Klebsiella oxytoca sensitive to cipro and zosyn and Ecoli which was resistant to ciprofloxacin but sensitive to Zosyn. Ultrasound of transplanted kidney (done 02/23/15) was unremarkable PLAN - Continue Zosyn (02/22- - Blood cultures NGTD - Urine culture + > 100k E Coli - Sensitivities pending - Continue IVF - Monitor I+Os, fever curve, WBC Flu-like symptoms 02/22/2015 02/28/2015 Overview: Complains of nausea, vomiting and myalgia with sick contacts. Flu A and B negative Symptoms of one week duration. Beyond the time frame to receive tamiflu. PLAN - Influenza A & B - Negative - Metoclopramide for nausea DVT prophylaxis 02/22/2015 02/28/2015 Overview: PLAN - Heparin 5000 units q 12 UTI (urinary tract infection) 06/10/2013 Post-dural puncture headache 06/10/2013 Urinary tract infection, E. coli 03/17/2013 09/28/2013 Need for prophylactic immunotherapy 06/13/2011 09/28/2013 Anemia, unspecified 04/11/2009 11/21/2011 Unspecified disease of white blood cells 007 01/13/2011 End stage renal disease 10/16/2005 09/28/20 13 Nephritis and nephropathy, n ot specified as acute or chronic, with other specified pathological lesion in kidney, in diseases classified elsewhere 10/16/2005 09/01/2018 Legionnaires' disease 09/28/2013 Overview: during SLE flare, serum antigen +, but urine antigen negative; treated anyway Cough 09/28/2013 Overview: jeanna induced Cystitis 09/01/2018 Overview: x1 summer 2004 (presented with fever) documented as of this encounter (statuses as of 10/07/2022) [facility]04[facility] History of Past illness Narrative* Problem Noted Date Resolved Date SUMMARY 02/22/2015 09/01/2018 Overview: Ms Sauceda is a 39 yo F with a PMHx/o kidney transplant, HTN, SLE, hypothyroidism who presented to the ER with fevers (103F), Hypertension, SLE, Hypothyroidism who comes to the ER with flu like symptoms. She was found to have + UA and was started on Cipro initially which was changed to Zosyn on the RNF. UTI (lower urinary tract infection) 02/22/2015 02/28/2015 Overview: Fevers, N/V UA positive for WBC 11-25 with leukoesterase Received one dose of Ciprofloxacin in the ED. Prior history of Klebsiella oxytoca sensitive to cipro and zosyn and Ecoli which was resistant to ciprofloxacin but sensitive to Zosyn. Ultrasound of transplanted kidney (done 02/23/15) was unremarkable PLAN - Continue Zosyn (02/22- - Blood cultures NGTD - Urine culture + > 100k E Coli - Sensitivities pending - Continue IVF - Monitor I+Os, fever curve, WBC Flu-like symptoms 02/22/2015 02/28/2015 Overview: Complains of nausea, vomiting and myalgia with sick contacts. Flu A and B negative Symptoms of one week duration. Beyond the time frame to receive tamiflu. PLAN - Influenza A & B - Negative - Metoclopramide for nausea DVT prophylaxis 02/22/2015 02/28/2015 Overview: PLAN - Heparin 5000 units q 12 UTI (urinary tract infection) 06/10/2013 Post-dural puncture headache 06/10/2013 Urinary tract infection, E. coli 03/17/2013 09/28/2013 Need for prophylactic immunotherapy 06/13/2011 09/28/2013 Anemia, unspecified 04/11/2009 11/21/2011 Unspecified disease of white blood cells 007 01/13/2011 End stage renal disease 10/16/2005 09/28/20 13 Nephritis and nephropathy, n ot specified as acute or chronic, with other specified pathological lesion in kidney, in diseases classified elsewhere 10/16/2005 09/01/2018 Legionnaires' disease 09/28/2013 Overview: during SLE flare, serum antigen +, but urine antigen negative; treated anyway Cough 09/28/2013 Overview: jeanna induced Cystitis 09/01/2018 Overview: x1 summer 2004 (presented with fever) documented as of this encounter (statuses as of 10/09/2022) [facility] History of Past illness Narrative* Problem Noted Date Resolved Date SUMMARY 02/22/2015 09/01/2018 Overview: Ms Sauceda is a 39 yo F with a PMHx/o kidney transplant, HTN, SLE, hypothyroidism who presented to the ER with fevers (103F), Hypertension, SLE, Hypothyroidism who comes to the ER with flu like symptoms. She was found to have + UA and was started on Cipro initially which was changed to Zosyn on the RNF. UTI (lower urinary tract infection) 02/22/2015 02/28/2015 Overview: Fevers, N/V UA positive for WBC 11-25 with leukoesterase Received one dose of Ciprofloxacin in the ED. Prior history of Klebsiella oxytoca sensitive to cipro and zosyn and Ecoli which was resistant to ciprofloxacin but sensitive to Zosyn. Ultrasound of transplanted kidney (done 02/23/15) was unremarkable PLAN - Continue Zosyn (02/22- - Blood cultures NGTD - Urine culture + > 100k E Coli - Sensitivities pending - Continue IVF - Monitor I+Os, fever curve, WBC Flu-like symptoms 02/22/2015 02/28/2015 Overview: Complains of nausea, vomiting and myalgia with sick contacts. Flu A and B negative Symptoms of one week duration. Beyond the time frame to receive tamiflu. PLAN - Influenza A & B - Negative - Metoclopramide for nausea DVT prophylaxis 02/22/2015 02/28/2015 Overview: PLAN - Heparin 5000 units q 12 UTI (urinary tract infection) 06/10/2013 Post-dural puncture headache 06/10/2013 Urinary tract infection, E. coli 03/17/2013 09/28/2013 Need for prophylactic immunotherapy 06/13/2011 09/28/2013 Anemia, unspecified 04/11/2009 11/21/2011 Unspecified disease of white blood cells 007 01/13/2011 End stage renal disease 10/16/2005 09/28/20 13 Nephritis and nephropathy, n ot specified as acute or chronic, with other specified pathological lesion in kidney, in diseases classified elsewhere 10/16/2005 09/01/2018 Legionnaires' disease 09/28/2013 Overview: during SLE flare, serum antigen +, but urine antigen negative; treated anyway Cough 09/28/2013 Overview: jeanna induced Cystitis 09/01/2018 Overview: x1 summer 2004 (presented with fever) documented as of this encounter (statuses as of 11/19/2022) [facility]04-09-2015 History of Past illness Narrative* Problem Noted Date Resolved Date SUMMARY 02/22/2015 09/01/2018 Overview: Ms Sauceda is a 39 yo F with a PMHx/o kidney transplant, HTN, SLE, hypothyroidism who presented to the ER with fevers (103F), Hypertension, SLE, Hypothyroidism who comes to the ER with flu like symptoms. She was found to have + UA and was started on Cipro initially which was changed to Zosyn on the RNF. UTI (lower urinary tract infection) 02/22/2015 02/28/2015 Overview: Fevers, N/V UA positive for WBC 11-25 with leukoesterase Received one dose of Ciprofloxacin in the ED. Prior history of Klebsiella oxytoca sensitive to cipro and zosyn and Ecoli which was resistant to ciprofloxacin but sensitive to Zosyn. Ultrasound of transplanted kidney (done 02/23/15) was unremarkable PLAN - Continue Zosyn (02/22- - Blood cultures NGTD - Urine culture + > 100k E Coli - Sensitivities pending - Continue IVF - Monitor I+Os, fever curve, WBC Flu-like symptoms 02/22/2015 02/28/2015 Overview: Complains of nausea, vomiting and myalgia with sick contacts. Flu A and B negative Symptoms of one week duration. Beyond the time frame to receive tamiflu. PLAN - Influenza A & B - Negative - Metoclopramide for nausea DVT prophylaxis 02/22/2015 02/28/2015 Overview: PLAN - Heparin 5000 units q 12 UTI (urinary tract infection) 06/10/2013 Post-dural puncture headache 06/10/2013 Urinary tract infection, E. coli 03/17/2013 09/28/2013 Need for prophylactic immunotherapy 06/13/2011 09/28/2013 Anemia, unspecified 04/11/2009 11/21/2011 Unspecified disease of white blood cells 007 01/13/2011 End stage renal disease 10/16/2005 09/28/20 13 Nephritis and nephropathy, n ot specified as acute or chronic, with other specified pathological lesion in kidney, in diseases classified elsewhere 10/16/2005 09/01/2018 Legionnaires' disease 09/28/2013 Overview: during SLE flare, serum antigen +, but urine antigen negative; treated anyway Cough 09/28/2013 Overview: jeanna induced Cystitis 09/01/2018 Overview: x1 summer 2004 (presented with fever) documented as of this encounter (statuses as of 11/19/2022) [facility]04-09-2015 History of Past illness Narrative* Problem Noted Date Resolved Date SUMMARY 02/22/2015 09/01/2018 Overview: Ms Sauceda is a 39 yo F with a PMHx/o kidney transplant, HTN, SLE, hypothyroidism who presented to the ER with fevers (103F), Hypertension, SLE, Hypothyroidism who comes to the ER with flu like symptoms. She was found to have + UA and was started on Cipro initially which was changed to Zosyn on the RNF. UTI (lower urinary tract infection) 02/22/2015 02/28/2015 Overview: Fevers, N/V UA positive for WBC 11-25 with leukoesterase Received one dose of Ciprofloxacin in the ED. Prior history of Klebsiella oxytoca sensitive to cipro and zosyn and Ecoli which was resistant to ciprofloxacin but sensitive to Zosyn. Ultrasound of transplanted kidney (done 02/23/15) was unremarkable PLAN - Continue Zosyn (02/22- - Blood cultures NGTD - Urine culture + > 100k E Coli - Sensitivities pending - Continue IVF - Monitor I+Os, fever curve, WBC Flu-like symptoms 02/22/2015 02/28/2015 Overview: Complains of nausea, vomiting and myalgia with sick contacts. Flu A and B negative Symptoms of one week duration. Beyond the time frame to receive tamiflu. PLAN - Influenza A & B - Negative - Metoclopramide for nausea DVT prophylaxis 02/22/2015 02/28/2015 Overview: PLAN - Heparin 5000 units q 12 UTI (urinary tract infection) 06/10/2013 Post-dural puncture headache 06/10/2013 Urinary tract infection, E. coli 03/17/2013 09/28/2013 Need for prophylactic immunotherapy 06/13/2011 09/28/2013 Anemia, unspecified 04/11/2009 11/21/2011 Unspecified disease of white blood cells 007 01/13/2011 End stage renal disease 10/16/2005 09/28/20 13 Nephritis and nephropathy, n ot specified as acute or chronic, with other specified pathological lesion in kidney, in diseases classified elsewhere 10/16/2005 09/01/2018 Legionnaires' disease 09/28/2013 Overview: during SLE flare, serum antigen +, but urine antigen negative; treated anyway Cough 09/28/2013 Overview: jeanna induced Cystitis 09/01/2018 Overview: x1 summer 2004 (presented with fever) documented as of this encounter (statuses as of 12/11/2022) [facility]04-09-2015 History of Past illness Narrative* Problem Noted Date Resolved Date SUMMARY 02/22/2015 09/01/2018 Overview: Ms Komal is a 39 yo F with a PMHx/o kidney transplant, HTN, SLE, hypothyroidism who presented to the ER with fevers (103F), Hypertension, SLE, Hypothyroidism who comes to the ER with flu like symptoms. She was found to have + UA and was started on Cipro initially which was changed to Zosyn on the RNF. UTI (lower urinary tract infection) 02/22/2015 02/28/2015 Overview: Fevers, N/V UA positive for WBC 11-25 with leukoesterase Received one dose of Ciprofloxacin in the ED. Prior history of Klebsiella oxytoca sensitive to cipro and zosyn and Ecoli which was resistant to ciprofloxacin but sensitive to Zosyn. Ultrasound of transplanted kidney (done 02/23/15) was unremarkable PLAN - Continue Zosyn (02/22- - Blood cultures NGTD - Urine culture + > 100k E Coli - Sensitivities pending - Continue IVF - Monitor I+Os, fever curve, WBC Flu-like symptoms 02/22/2015 02/28/2015 Overview: Complains of nausea, vomiting and myalgia with sick contacts. Flu A and B negative Symptoms of one week duration. Beyond the time frame to receive tamiflu. PLAN - Influenza A & B - Negative - Metoclopramide for nausea DVT prophylaxis 02/22/2015 02/28/2015 Overview: PLAN - Heparin 5000 units q 12 UTI (urinary tract infection) 06/10/2013 Post-dural puncture headache 06/10/2013 Urinary tract infection, E. coli 03/17/2013 09/28/2013 Need for prophylactic immunotherapy 06/13/2011 09/28/2013 Anemia, unspecified 04/11/2009 11/21/2011 Unspecified disease of white blood cells 007 01/13/2011 End stage renal disease 10/16/2005 09/28/20 13 Nephritis and nephropathy, n ot specified as acute or chronic, with other specified pathological lesion in kidney, in diseases classified elsewhere 10/16/2005 09/01/2018 Legionnaires' disease 09/28/2013 Overview: during SLE flare, serum antigen +, but urine antigen negative; treated anyway Cough 09/28/2013 Overview: jeanna induced Cystitis 09/01/2018 Overview: x1 summer 2004 (presented with fever) documented as of this encounter (statuses as of 12/25/2022) [facility]04-[facility]2015 History of Past illness Narrative* Problem Noted Date Resolved Date SUMMARY 02/22/2015 09/01/2018 Overview: Ms Sauceda is a 39 yo F with a PMHx/o kidney transplant, HTN, SLE, hypothyroidism who presented to the ER with fevers (103F), Hypertension, SLE, Hypothyroidism who comes to the ER with flu like symptoms. She was found to have + UA and was started on Cipro initially which was changed to Zosyn on the RNF. UTI (lower urinary tract infection) 02/22/2015 02/28/2015 Overview: Fevers, N/V UA positive for WBC 11-25 with leukoesterase Received one dose of Ciprofloxacin in the ED. Prior history of Klebsiella oxytoca sensitive to cipro and zosyn and Ecoli which was resistant to ciprofloxacin but sensitive to Zosyn. Ultrasound of transplanted kidney (done 02/23/15) was unremarkable PLAN - Continue Zosyn (02/22- - Blood cultures NGTD - Urine culture + > 100k E Coli - Sensitivities pending - Continue IVF - Monitor I+Os, fever curve, WBC Flu-like symptoms 02/22/2015 02/28/2015 Overview: Complains of nausea, vomiting and myalgia with sick contacts. Flu A and B negative Symptoms of one week duration. Beyond the time frame to receive tamiflu. PLAN - Influenza A & B - Negative - Metoclopramide for nausea DVT prophylaxis 02/22/2015 02/28/2015 Overview: PLAN - Heparin 5000 units q 12 UTI (urinary tract infection) 06/10/2013 Post-dural puncture headache 06/10/2013 Urinary tract infection, E. coli 03/17/2013 09/28/2013 Need for prophylactic immunotherapy 06/13/2011 09/28/2013 Anemia, unspecified 04/11/2009 11/21/2011 Unspecified disease of white blood cells 007 01/13/2011 End stage renal disease 10/16/2005 09/28/20 13 Nephritis and nephropathy, n ot specified as acute or chronic, with other specified pathological lesion in kidney, in diseases classified elsewhere 10/16/2005 09/01/2018 Legionnaires' disease 09/28/2013 Overview: during SLE flare, serum antigen +, but urine antigen negative; treated anyway Cough 09/28/2013 Overview: jeanna induced Cystitis 09/01/2018 Overview: x1 summer 2004 (presented with fever) documented as of this encounter (statuses as of 12/25/2022) [facility]04-[facility]2015 History of Past illness Narrative* Problem Noted Date Resolved Date SUMMARY 02/22/2015 09/01/2018 Overview: Ms Sauceda is a 39 yo F with a PMHx/o kidney transplant, HTN, SLE, hypothyroidism who presented to the ER with fevers (103F), Hypertension, SLE, Hypothyroidism who comes to the ER with flu like symptoms. She was found to have + UA and was started on Cipro initially which was changed to Zosyn on the RNF. UTI (lower urinary tract infection) 02/22/2015 02/28/2015 Overview: Fevers, N/V UA positive for WBC 11-25 with leukoesterase Received one dose of Ciprofloxacin in the ED. Prior history of Klebsiella oxytoca sensitive to cipro and zosyn and Ecoli which was resistant to ciprofloxacin but sensitive to Zosyn. Ultrasound of transplanted kidney (done 02/23/15) was unremarkable PLAN - Continue Zosyn (02/22- - Blood cultures NGTD - Urine culture + > 100k E Coli - Sensitivities pending - Continue IVF - Monitor I+Os, fever curve, WBC Flu-like symptoms 02/22/2015 02/28/2015 Overview: Complains of nausea, vomiting and myalgia with sick contacts. Flu A and B negative Symptoms of one week duration. Beyond the time frame to receive tamiflu. PLAN - Influenza A & B - Negative - Metoclopramide for nausea DVT prophylaxis 02/22/2015 02/28/2015 Overview: PLAN - Heparin 5000 units q 12 UTI (urinary tract infection) 06/10/2013 Post-dural puncture headache 06/10/2013 Urinary tract infection, E. coli 03/17/2013 09/28/2013 Need for prophylactic immunotherapy 06/13/2011 09/28/2013 Anemia, unspecified 04/11/2009 11/21/2011 Unspecified disease of white blood cells 007 01/13/2011 End stage renal disease 10/16/2005 09/28/20 13 Nephritis and nephropathy, n ot specified as acute or chronic, with other specified pathological lesion in kidney, in diseases classified elsewhere 10/16/2005 09/01/2018 Legionnaires' disease 09/28/2013 Overview: during SLE flare, serum antigen +, but urine antigen negative; treated anyway Cough 09/28/2013 Overview: jeanna induced Cystitis 09/01/2018 Overview: x1 summer 2004 (presented with fever) documented as of this encounter (statuses as of 02/09/2023) [facility]04-[facility]2015 History of Past illness Narrative* Problem Noted Date Resolved Date SUMMARY 02/22/2015 09/01/2018 Overview: Ms Sauceda is a 39 yo F with a PMHx/o kidney transplant, HTN, SLE, hypothyroidism who presented to the ER with fevers (103F), Hypertension, SLE, Hypothyroidism who comes to the ER with flu like symptoms. She was found to have + UA and was started on Cipro initially which was changed to Zosyn on the RNF. UTI (lower urinary tract infection) 02/22/2015 02/28/2015 Overview: Fevers, N/V UA positive for WBC 11-25 with leukoesterase Received one dose of Ciprofloxacin in the ED. Prior history of Klebsiella oxytoca sensitive to cipro and zosyn and Ecoli which was resistant to ciprofloxacin but sensitive to Zosyn. Ultrasound of transplanted kidney (done 02/23/15) was unremarkable PLAN - Continue Zosyn (02/22- - Blood cultures NGTD - Urine culture + > 100k E Coli - Sensitivities pending - Continue IVF - Monitor I+Os, fever curve, WBC Flu-like symptoms 02/22/2015 02/28/2015 Overview: Complains of nausea, vomiting and myalgia with sick contacts. Flu A and B negative Symptoms of one week duration. Beyond the time frame to receive tamiflu. PLAN - Influenza A & B - Negative - Metoclopramide for nausea DVT prophylaxis 02/22/2015 02/28/2015 Overview: PLAN - Heparin 5000 units q 12 UTI (urinary tract infection) 06/10/2013 Post-dural puncture headache 06/10/2013 Urinary tract infection, E. coli 03/17/2013 09/28/2013 Need for prophylactic immunotherapy 06/13/2011 09/28/2013 Anemia, unspecified 04/11/2009 11/21/2011 Unspecified disease of white blood cells 007 01/13/2011 End stage renal disease 10/16/2005 09/28/20 13 Nephritis and nephropathy, n ot specified as acute or chronic, with other specified pathological lesion in kidney, in diseases classified elsewhere 10/16/2005 09/01/2018 Legionnaires' disease 09/28/2013 Overview: during SLE flare, serum antigen +, but urine antigen negative; treated anyway Cough 09/28/2013 Overview: jeanna induced Cystitis 09/01/2018 Overview: x1 summer 2004 (presented with fever) documented as of this encounter (statuses as of 02/09/2023) [facility]04-[facility]2015 History of Past illness Narrative* Problem Noted Date Resolved Date SUMMARY 02/22/2015 09/01/2018 Overview: Ms Sauceda is a 39 yo F with a PMHx/o kidney transplant, HTN, SLE, hypothyroidism who presented to the ER with fevers (103F), Hypertension, SLE, Hypothyroidism who comes to the ER with flu like symptoms. She was found to have + UA and was started on Cipro initially which was changed to Zosyn on the RNF. UTI (lower urinary tract infection) 02/22/2015 02/28/2015 Overview: Fevers, N/V UA positive for WBC 11-25 with leukoesterase Received one dose of Ciprofloxacin in the ED. Prior history of Klebsiella oxytoca sensitive to cipro and zosyn and Ecoli which was resistant to ciprofloxacin but sensitive to Zosyn. Ultrasound of transplanted kidney (done 02/23/15) was unremarkable PLAN - Continue Zosyn (02/22- - Blood cultures NGTD - Urine culture + > 100k E Coli - Sensitivities pending - Continue IVF - Monitor I+Os, fever curve, WBC Flu-like symptoms 02/22/2015 02/28/2015 Overview: Complains of nausea, vomiting and myalgia with sick contacts. Flu A and B negative Symptoms of one week duration. Beyond the time frame to receive tamiflu. PLAN - Influenza A & B - Negative - Metoclopramide for nausea DVT prophylaxis 02/22/2015 02/28/2015 Overview: PLAN - Heparin 5000 units q 12 UTI (urinary tract infection) 06/10/2013 Post-dural puncture headache 06/10/2013 Urinary tract infection, E. coli 03/17/2013 09/28/2013 Need for prophylactic immunotherapy 06/13/2011 09/28/2013 Anemia, unspecified 04/11/2009 11/21/2011 Unspecified disease of white blood cells 007 01/13/2011 End stage renal disease 10/16/2005 09/28/20 13 Nephritis and nephropathy, n ot specified as acute or chronic, with other specified pathological lesion in kidney, in diseases classified elsewhere 10/16/2005 09/01/2018 Legionnaires' disease 09/28/2013 Overview: during SLE flare, serum antigen +, but urine antigen negative; treated anyway Cough 09/28/2013 Overview: jeanna induced Cystitis 09/01/2018 Overview: x1 summer 2004 (presented with fever) documented as of this encounter (statuses as of 02/09/2023) [facility]04-[facility]2015 History of Past illness Narrative* Problem Noted Date Resolved Date SUMMARY 02/22/2015 09/01/2018 Overview: Ms Sauceda is a 39 yo F with a PMHx/o kidney transplant, HTN, SLE, hypothyroidism who presented to the ER with fevers (103F), Hypertension, SLE, Hypothyroidism who comes to the ER with flu like symptoms. She was found to have + UA and was started on Cipro initially which was changed to Zosyn on the RNF. UTI (lower urinary tract infection) 02/22/2015 02/28/2015 Overview: Fevers, N/V UA positive for WBC 11-25 with leukoesterase Received one dose of Ciprofloxacin in the ED. Prior history of Klebsiella oxytoca sensitive to cipro and zosyn and Ecoli which was resistant to ciprofloxacin but sensitive to Zosyn. Ultrasound of transplanted kidney (done 02/23/15) was unremarkable PLAN - Continue Zosyn (02/22- - Blood cultures NGTD - Urine culture + > 100k E Coli - Sensitivities pending - Continue IVF - Monitor I+Os, fever curve, WBC Flu-like symptoms 02/22/2015 02/28/2015 Overview: Complains of nausea, vomiting and myalgia with sick contacts. Flu A and B negative Symptoms of one week duration. Beyond the time frame to receive tamiflu. PLAN - Influenza A & B - Negative - Metoclopramide for nausea DVT prophylaxis 02/22/2015 02/28/2015 Overview: PLAN - Heparin 5000 units q 12 UTI (urinary tract infection) 06/10/2013 Post-dural puncture headache 06/10/2013 Urinary tract infection, E. coli 03/17/2013 09/28/2013 Need for prophylactic immunotherapy 06/13/2011 09/28/2013 Anemia, unspecified 04/11/2009 11/21/2011 Unspecified disease of white blood cells 007 01/13/2011 End stage renal disease 10/16/2005 09/28/20 13 Nephritis and nephropathy, n ot specified as acute or chronic, with other specified pathological lesion in kidney, in diseases classified elsewhere 10/16/2005 09/01/2018 Legionnaires' disease 09/28/2013 Overview: during SLE flare, serum antigen +, but urine antigen negative; treated anyway Cough 09/28/2013 Overview: jeanna induced Cystitis 09/01/2018 Overview: x1 summer 2004 (presented with fever) documented as of this encounter (statuses as of 02/13/2023) [facility]04-[facility]2015 History of Past illness Narrative* Problem Noted Date Resolved Date SUMMARY 02/22/2015 09/01/2018 Overview: Ms Sauceda is a 39 yo F with a PMHx/o kidney transplant, HTN, SLE, hypothyroidism who presented to the ER with fevers (103F), Hypertension, SLE, Hypothyroidism who comes to the ER with flu like symptoms. She was found to have + UA and was started on Cipro initially which was changed to Zosyn on the RNF. UTI (lower urinary tract infection) 02/22/2015 02/28/2015 Overview: Fevers, N/V UA positive for WBC 11-25 with leukoesterase Received one dose of Ciprofloxacin in the ED. Prior history of Klebsiella oxytoca sensitive to cipro and zosyn and Ecoli which was resistant to ciprofloxacin but sensitive to Zosyn. Ultrasound of transplanted kidney (done 02/23/15) was unremarkable PLAN - Continue Zosyn (02/22- - Blood cultures NGTD - Urine culture + > 100k E Coli - Sensitivities pending - Continue IVF - Monitor I+Os, fever curve, WBC Flu-like symptoms 02/22/2015 02/28/2015 Overview: Complains of nausea, vomiting and myalgia with sick contacts. Flu A and B negative Symptoms of one week duration. Beyond the time frame to receive tamiflu. PLAN - Influenza A & B - Negative - Metoclopramide for nausea DVT prophylaxis 02/22/2015 02/28/2015 Overview: PLAN - Heparin 5000 units q 12 UTI (urinary tract infection) 06/10/2013 Post-dural puncture headache 06/10/2013 Urinary tract infection, E. coli 03/17/2013 09/28/2013 Need for prophylactic immunotherapy 06/13/2011 09/28/2013 Anemia, unspecified 04/11/2009 11/21/2011 Unspecified disease of white blood cells 007 01/13/2011 End stage renal disease 10/16/2005 09/28/20 13 Nephritis and nephropathy, n ot specified as acute or chronic, with other specified pathological lesion in kidney, in diseases classified elsewhere 10/16/2005 09/01/2018 Legionnaires' disease 09/28/2013 Overview: during SLE flare, serum antigen +, but urine antigen negative; treated anyway Cough 09/28/2013 Overview: jeanna induced Cystitis 09/01/2018 Overview: x1 summer 2004 (presented with fever) documented as of this encounter (statuses as of 03/17/2023) [facility]04[facility] History of Past illness Narrative* Problem Noted Date Resolved Date SUMMARY 02/22/2015 09/01/2018 Overview: Ms Sauceda is a 39 yo F with a PMHx/o kidney transplant, HTN, SLE, hypothyroidism who presented to the ER with fevers (103F), Hypertension, SLE, Hypothyroidism who comes to the ER with flu like symptoms. She was found to have + UA and was started on Cipro initially which was changed to Zosyn on the RNF. UTI (lower urinary tract infection) 02/22/2015 02/28/2015 Overview: Fevers, N/V UA positive for WBC 11-25 with leukoesterase Received one dose of Ciprofloxacin in the ED. Prior history of Klebsiella oxytoca sensitive to cipro and zosyn and Ecoli which was resistant to ciprofloxacin but sensitive to Zosyn. Ultrasound of transplanted kidney (done 02/23/15) was unremarkable PLAN - Continue Zosyn (02/22- - Blood cultures NGTD - Urine culture + > 100k E Coli - Sensitivities pending - Continue IVF - Monitor I+Os, fever curve, WBC Flu-like symptoms 02/22/2015 02/28/2015 Overview: Complains of nausea, vomiting and myalgia with sick contacts. Flu A and B negative Symptoms of one week duration. Beyond the time frame to receive tamiflu. PLAN - Influenza A & B - Negative - Metoclopramide for nausea DVT prophylaxis 02/22/2015 02/28/2015 Overview: PLAN - Heparin 5000 units q 12 UTI (urinary tract infection) 06/10/2013 Post-dural puncture headache 06/10/2013 Urinary tract infection, E. coli 03/17/2013 09/28/2013 Need for prophylactic immunotherapy 06/13/2011 09/28/2013 Anemia, unspecified 04/11/2009 11/21/2011 Unspecified disease of white blood cells 007 01/13/2011 End stage renal disease 10/16/2005 09/28/20 13 Nephritis and nephropathy, n ot specified as acute or chronic, with other specified pathological lesion in kidney, in diseases classified elsewhere 10/16/2005 09/01/2018 Legionnaires' disease 09/28/2013 Overview: during SLE flare, serum antigen +, but urine antigen negative; treated anyway Cough 09/28/2013 Overview: jeanna induced Cystitis 09/01/2018 Overview: x1 summer 2004 (presented with fever) documented as of this encounter (statuses as of 04/29/2023) [facility] History of Past illness Narrative* Problem Noted Date Diagnosed Date Resolved Date SUMMARY 02/22/2015 09/01/2018 Overview: Ms Sauceda is a 39 yo F with a PMHx/o kidney transplant, HTN, SLE, hypothyroidism who presented to the ER with fevers (103F), Hypertension, SLE, Hypothyroidism who comes to the ER with flu like symptoms. She was found to have + UA and was started on Cipro initially which was changed to Zosyn on the RNF. UTI (lower urinary tract infection) 02/22/2015 02/28/2015 Overview: Fevers, N/V UA positive for WBC 11-25 with leukoesterase Received one dose of Ciprofloxacin in the ED. Prior history of Klebsiella oxytoca sensitive to cipro and zosyn and Ecoli which was resistant to ciprofloxacin but sensitive to Zosyn. Ultrasound of transplanted kidney (done 02/23/15) was unremarkable PLAN - Continue Zosyn (02/22- - Blood cultures NGTD - Urine culture + > 100k E Coli - Sensitivities pending - Continue IVF - Monitor I+Os, fever curve, WBC Flu-like symptoms 02/22/2015 02/28/2015 Overview: Complains of nausea, vomiting and myalgia with sick contacts. Flu A and B negative Symptoms of one week duration. Beyond the time frame to receive tamiflu. PLAN - Influenza A & B - Negative - Metoclopramide for nausea DVT prophylaxis 02/22/2015 02/28/2015 Overview: PLAN - Heparin 5000 units q 12 UTI (urinary tract infection) 06/10/2013 09/28/2013 Post-dural puncture headache 06/10/2013 09/28/2013 Urinary tract infection, E. coli 03/17/2013 09/28/2013 Need for prophylactic immunotherapy 06/13/2011 09/28/2013 Anemia, unspecified 04/11/2009 11/21/19 12 Unspecified disease of white blood cells 06/03/2007 01/13/2011 End stage renal disease 10/16/200509/16 Nephritis and nephropathy, n ot specified as acute or chronic, with other specified pathological lesion in kidney, in diseases classified elsewhere 10/16/2005 09/01/2018 Legionnaires' disease 2012 Overview: during SLE flare, serum antigen +, but urine antigen negative; treated anyway Cough 09/28/2013 Overview: jeanna induced Cystitis 09/01/2018 Overview: x1 summer 2004 (presented with fever) documented as of this encounter (statuses as of 06/03/2023) [facility] History of Past illness Narrative* Problem Noted Date Diagnosed Date Resolved Date SUMMARY 02/22/2015 09/01/2018 Overview: Ms Sauceda is a 39 yo F with a PMHx/o kidney transplant, HTN, SLE, hypothyroidism who presented to the ER with fevers (103F), Hypertension, SLE, Hypothyroidism who comes to the ER with flu like symptoms. She was found to have + UA and was started on Cipro initially which was changed to Zosyn on the RNF. UTI (lower urinary tract infection) 02/22/2015 02/28/2015 Overview: Fevers, N/V UA positive for WBC 11-25 with leukoesterase Received one dose of Ciprofloxacin in the ED. Prior history of Klebsiella oxytoca sensitive to cipro and zosyn and Ecoli which was resistant to ciprofloxacin but sensitive to Zosyn. Ultrasound of transplanted kidney (done 02/23/15) was unremarkable PLAN - Continue Zosyn (02/22- - Blood cultures NGTD - Urine culture + > 100k E Coli - Sensitivities pending - Continue IVF - Monitor I+Os, fever curve, WBC Flu-like symptoms 02/22/2015 02/28/2015 Overview: Complains of nausea, vomiting and myalgia with sick contacts. Flu A and B negative Symptoms of one week duration. Beyond the time frame to receive tamiflu. PLAN - Influenza A & B - Negative - Metoclopramide for nausea DVT prophylaxis 02/22/2015 02/28/2015 Overview: PLAN - Heparin 5000 units q 12 UTI (urinary tract infection) 06/10/2013 09/28/2013 Post-dural puncture headache 06/10/2013 09/28/2013 Urinary tract infection, E. coli 03/17/2013 09/28/2013 Need for prophylactic immunotherapy 06/13/2011 09/28/2013 Anemia, unspecified 04/11/2009 11/21/19 12 Unspecified disease of white blood cells 06/03/2007 01/13/2011 End stage renal disease 10/16/200509/16 Nephritis and nephropathy, n ot specified as acute or chronic, with other specified pathological lesion in kidney, in diseases classified elsewhere 10/16/2005 09/01/2018 Legionnaires' disease 2012 Overview: during SLE flare, serum antigen +, but urine antigen negative; treated anyway Cough 09/28/2013 Overview: jeanna induced Cystitis 09/01/2018 Overview: x1 summer 2004 (presented with fever) documented as of this encounter (statuses as of 06/10/2023) [facility]04-09-2015 History of Past illness Narrative* Problem Noted Date Diagnosed Date Resolved Date SUMMARY 02/22/2015 09/01/2018 Overview: Ms Sauceda is a 39 yo F with a PMHx/o kidney transplant, HTN, SLE, hypothyroidism who presented to the ER with fevers (103F), Hypertension, SLE, Hypothyroidism who comes to the ER with flu like symptoms. She was found to have + UA and was started on Cipro initially which was changed to Zosyn on the RNF. UTI (lower urinary tract infection) 02/22/2015 02/28/2015 Overview: Fevers, N/V UA positive for WBC 11-25 with leukoesterase Received one dose of Ciprofloxacin in the ED. Prior history of Klebsiella oxytoca sensitive to cipro and zosyn and Ecoli which was resistant to ciprofloxacin but sensitive to Zosyn. Ultrasound of transplanted kidney (done 02/23/15) was unremarkable PLAN - Continue Zosyn (02/22- - Blood cultures NGTD - Urine culture + > 100k E Coli - Sensitivities pending - Continue IVF - Monitor I+Os, fever curve, WBC Flu-like symptoms 02/22/2015 02/28/2015 Overview: Complains of nausea, vomiting and myalgia with sick contacts. Flu A and B negative Symptoms of one week duration. Beyond the time frame to receive tamiflu. PLAN - Influenza A & B - Negative - Metoclopramide for nausea DVT prophylaxis 02/22/2015 02/28/2015 Overview: PLAN - Heparin 5000 units q 12 UTI (urinary tract infection) 06/10/2013 09/28/2013 Post-dural puncture headache 06/10/2013 09/28/2013 Urinary tract infection, E. coli 03/17/2013 09/28/2013 Need for prophylactic immunotherapy 06/13/2011 09/28/2013 Anemia, unspecified 04/11/2009 11/21/19 12 Unspecified disease of white blood cells 06/03/2007 01/13/2011 End stage renal disease 10/16/200509/16 Nephritis and nephropathy, n ot specified as acute or chronic, with other specified pathological lesion in kidney, in diseases classified elsewhere 10/16/2005 09/01/2018 Legionnaires' disease 2012 Overview: during SLE flare, serum antigen +, but urine antigen negative; treated anyway Cough 09/28/2013 Overview: jeanna induced Cystitis 09/01/2018 Overview: x1 summer 2004 (presented with fever) documented as of this encounter (statuses as of 06/11/2023) [facility]04-09-2015 History of Past illness Narrative* Problem Noted Date Diagnosed Date Resolved Date SUMMARY 02/22/2015 09/01/2018 Overview: Ms Sauceda is a 39 yo F with a PMHx/o kidney transplant, HTN, SLE, hypothyroidism who presented to the ER with fevers (103F), Hypertension, SLE, Hypothyroidism who comes to the ER with flu like symptoms. She was found to have + UA and was started on Cipro initially which was changed to Zosyn on the RNF. UTI (lower urinary tract infection) 02/22/2015 02/28/2015 Overview: Fevers, N/V UA positive for WBC 11-25 with leukoesterase Received one dose of Ciprofloxacin in the ED. Prior history of Klebsiella oxytoca sensitive to cipro and zosyn and Ecoli which was resistant to ciprofloxacin but sensitive to Zosyn. Ultrasound of transplanted kidney (done 02/23/15) was unremarkable PLAN - Continue Zosyn (02/22- - Blood cultures NGTD - Urine culture + > 100k E Coli - Sensitivities pending - Continue IVF - Monitor I+Os, fever curve, WBC Flu-like symptoms 02/22/2015 02/28/2015 Overview: Complains of nausea, vomiting and myalgia with sick contacts. Flu A and B negative Symptoms of one week duration. Beyond the time frame to receive tamiflu. PLAN - Influenza A & B - Negative - Metoclopramide for nausea DVT prophylaxis 02/22/2015 02/28/2015 Overview: PLAN - Heparin 5000 units q 12 UTI (urinary tract infection) 06/10/2013 09/28/2013 Post-dural puncture headache 06/10/2013 09/28/2013 Urinary tract infection, E. coli 03/17/2013 09/28/2013 Need for prophylactic immunotherapy 06/13/2011 09/28/2013 Anemia, unspecified 04/11/2009 11/21/19 12 Unspecified disease of white blood cells 06/03/2007 01/13/2011 End stage renal disease 10/16/200509/16 Nephritis and nephropathy, n ot specified as acute or chronic, with other specified pathological lesion in kidney, in diseases classified elsewhere 10/16/2005 09/01/2018 Legionnaires' disease 2012 Overview: during SLE flare, serum antigen +, but urine antigen negative; treated anyway Cough 09/28/2013 Overview: jeanna induced Cystitis 09/01/2018 Overview: x1 summer 2004 (presented with fever) documented as of this encounter (statuses as of 07/23/2023) [facility]04-09-2015 History of Past illness Narrative* Problem Noted Date Diagnosed Date Resolved Date SUMMARY 02/22/2015 09/01/2018 Overview: Ms Sauceda is a 39 yo F with a PMHx/o kidney transplant, HTN, SLE, hypothyroidism who presented to the ER with fevers (103F), Hypertension, SLE, Hypothyroidism who comes to the ER with flu like symptoms. She was found to have + UA and was started on Cipro initially which was changed to Zosyn on the RNF. UTI (lower urinary tract infection) 02/22/2015 02/28/2015 Overview: Fevers, N/V UA positive for WBC 11-25 with leukoesterase Received one dose of Ciprofloxacin in the ED. Prior history of Klebsiella oxytoca sensitive to cipro and zosyn and Ecoli which was resistant to ciprofloxacin but sensitive to Zosyn. Ultrasound of transplanted kidney (done 02/23/15) was unremarkable PLAN - Continue Zosyn (02/22- - Blood cultures NGTD - Urine culture + > 100k E Coli - Sensitivities pending - Continue IVF - Monitor I+Os, fever curve, WBC Flu-like symptoms 02/22/2015 02/28/2015 Overview: Complains of nausea, vomiting and myalgia with sick contacts. Flu A and B negative Symptoms of one week duration. Beyond the time frame to receive tamiflu. PLAN - Influenza A & B - Negative - Metoclopramide for nausea DVT prophylaxis 02/22/2015 02/28/2015 Overview: PLAN - Heparin 5000 units q 12 UTI (urinary tract infection) 06/10/2013 09/28/2013 Post-dural puncture headache 06/10/2013 09/28/2013 Urinary tract infection, E. coli 03/17/2013 09/28/2013 Need for prophylactic immunotherapy 06/13/2011 09/28/2013 Anemia, unspecified 04/11/2009 11/21/19 12 Unspecified disease of white blood cells 06/03/2007 01/13/2011 End stage renal disease 10/16/200509/16 Nephritis and nephropathy, n ot specified as acute or chronic, with other specified pathological lesion in kidney, in diseases classified elsewhere 10/16/2005 09/01/2018 Legionnaires' disease 2012 Overview: during SLE flare, serum antigen +, but urine antigen negative; treated anyway Cough 09/28/2013 Overview: jeanna induced Cystitis 09/01/2018 Overview: x1 summer 2004 (presented with fever) documented as of this encounter (statuses as of 07/23/2023) [facility]04-09-2015 History of Past illness Narrative* Problem Noted Date Diagnosed Date Resolved Date SUMMARY 02/22/2015 09/01/2018 Overview: Ms Sauceda is a 39 yo F with a PMHx/o kidney transplant, HTN, SLE, hypothyroidism who presented to the ER with fevers (103F), Hypertension, SLE, Hypothyroidism who comes to the ER with flu like symptoms. She was found to have + UA and was started on Cipro initially which was changed to Zosyn on the RNF. UTI (lower urinary tract infection) 02/22/2015 02/28/2015 Overview: Fevers, N/V UA positive for WBC 11-25 with leukoesterase Received one dose of Ciprofloxacin in the ED. Prior history of Klebsiella oxytoca sensitive to cipro and zosyn and Ecoli which was resistant to ciprofloxacin but sensitive to Zosyn. Ultrasound of transplanted kidney (done 02/23/15) was unremarkable PLAN - Continue Zosyn (02/22- - Blood cultures NGTD - Urine culture + > 100k E Coli - Sensitivities pending - Continue IVF - Monitor I+Os, fever curve, WBC Flu-like symptoms 02/22/2015 02/28/2015 Overview: Complains of nausea, vomiting and myalgia with sick contacts. Flu A and B negative Symptoms of one week duration. Beyond the time frame to receive tamiflu. PLAN - Influenza A & B - Negative - Metoclopramide for nausea DVT prophylaxis 02/22/2015 02/28/2015 Overview: PLAN - Heparin 5000 units q 12 UTI (urinary tract infection) 06/10/2013 09/28/2013 Post-dural puncture headache 06/10/2013 09/28/2013 Urinary tract infection, E. coli 03/17/2013 09/28/2013 Need for prophylactic immunotherapy 06/13/2011 09/28/2013 Anemia, unspecified 04/11/2009 11/21/19 12 Unspecified disease of white blood cells 06/03/2007 01/13/2011 End stage renal disease 10/16/200509/16 Nephritis and nephropathy, n ot specified as acute or chronic, with other specified pathological lesion in kidney, in diseases classified elsewhere 10/16/2005 09/01/2018 Legionnaires' disease 2012 Overview: during SLE flare, serum antigen +, but urine antigen negative; treated anyway Cough 09/28/2013 Overview: jeanna induced Cystitis 09/01/2018 Overview: x1 summer 2004 (presented with fever) documented as of this encounter (statuses as of 07/27/2023) [facility]04-[facility]2015 History of Past illness Narrative* Problem Noted Date Diagnosed Date Resolved Date SUMMARY 02/22/2015 09/01/2018 Overview: Ms Sauceda is a 39 yo F with a PMHx/o kidney transplant, HTN, SLE, hypothyroidism who presented to the ER with fevers (103F), Hypertension, SLE, Hypothyroidism who comes to the ER with flu like symptoms. She was found to have + UA and was started on Cipro initially which was changed to Zosyn on the RNF. UTI (lower urinary tract infection) 02/22/2015 02/28/2015 Overview: Fevers, N/V UA positive for WBC 11-25 with leukoesterase Received one dose of Ciprofloxacin in the ED. Prior history of Klebsiella oxytoca sensitive to cipro and zosyn and Ecoli which was resistant to ciprofloxacin but sensitive to Zosyn. Ultrasound of transplanted kidney (done 02/23/15) was unremarkable PLAN - Continue Zosyn (02/22- - Blood cultures NGTD - Urine culture + > 100k E Coli - Sensitivities pending - Continue IVF - Monitor I+Os, fever curve, WBC Flu-like symptoms 02/22/2015 02/28/2015 Overview: Complains of nausea, vomiting and myalgia with sick contacts. Flu A and B negative Symptoms of one week duration. Beyond the time frame to receive tamiflu. PLAN - Influenza A & B - Negative - Metoclopramide for nausea DVT prophylaxis 02/22/2015 02/28/2015 Overview: PLAN - Heparin 5000 units q 12 UTI (urinary tract infection) 06/10/2013 09/28/2013 Post-dural puncture headache 06/10/2013 09/28/2013 Urinary tract infection, E. coli 03/17/2013 09/28/2013 Need for prophylactic immunotherapy 06/13/2011 09/28/2013 Anemia, unspecified 04/11/2009 11/21/19 Unspecified disease of white blood cells 06/03/2007 01/13/2011 End stage renal disease 10/16/200509/16 Nephritis and nephropathy, n ot specified as acute or chronic, with other specified pathological lesion in kidney, in diseases classified elsewhere 10/16/2005 09/01/2018 Legionnaires' disease 2012 Overview: during SLE flare, serum antigen +, but urine antigen negative; treated anyway Cough 09/28/2013 Overview: jeanna induced Cystitis 09/01/2018 Overview: x1 summer 2004 (presented with fever) documented as of this encounter (statuses as of 09/04/2023) [facility]04-[facility]-2015 History of Past illness Narrative* Problem Noted Date Diagnosed Date Resolved Date SUMMARY 02/22/2015 09/01/2018 Overview: Ms Sauceda is a 39 yo F with a PMHx/o kidney transplant, HTN, SLE, hypothyroidism who presented to the ER with fevers (103F), Hypertension, SLE, Hypothyroidism who comes to the ER with flu like symptoms. She was found to have + UA and was started on Cipro initially which was changed to Zosyn on the RNF. UTI (lower urinary tract infection) 02/22/2015 02/28/2015 Overview: Fevers, N/V UA positive for WBC 11-25 with leukoesterase Received one dose of Ciprofloxacin in the ED. Prior history of Klebsiella oxytoca sensitive to cipro and zosyn and Ecoli which was resistant to ciprofloxacin but sensitive to Zosyn. Ultrasound of transplanted kidney (done 02/23/15) was unremarkable PLAN - Continue Zosyn (02/22- - Blood cultures NGTD - Urine culture + > 100k E Coli - Sensitivities pending - Continue IVF - Monitor I+Os, fever curve, WBC Flu-like symptoms 02/22/2015 02/28/2015 Overview: Complains of nausea, vomiting and myalgia with sick contacts. Flu A and B negative Symptoms of one week duration. Beyond the time frame to receive tamiflu. PLAN - Influenza A & B - Negative - Metoclopramide for nausea DVT prophylaxis 02/22/2015 02/28/2015 Overview: PLAN - Heparin 5000 units q 12 UTI (urinary tract infection) 06/10/2013 09/28/2013 Post-dural puncture headache 06/10/2013 09/28/2013 Urinary tract infection, E. coli 03/17/2013 09/28/2013 Need for prophylactic immunotherapy 06/13/2011 09/28/2013 Anemia, unspecified 04/11/2009 11/21/19 12 Unspecified disease of white blood cells 06/03/2007 01/13/2011 End stage renal disease 10/16/200509/16 Nephritis and nephropathy, n ot specified as acute or chronic, with other specified pathological lesion in kidney, in diseases classified elsewhere 10/16/2005 09/01/2018 Legionnaires' disease 2012 Overview: during SLE flare, serum antigen +, but urine antigen negative; treated anyway Cough 09/28/2013 Overview: jeanna induced Cystitis 09/01/2018 Overview: x1 summer 2004 (presented with fever) documented as of this encounter (statuses as of 09/07/2023) [facility]04-[facility]2015 History of Past illness Narrative* Problem Noted Date Diagnosed Date Resolved Date SUMMARY 02/22/2015 09/01/2018 Overview: Ms Sauceda is a 39 yo F with a PMHx/o kidney transplant, HTN, SLE, hypothyroidism who presented to the ER with fevers (103F), Hypertension, SLE, Hypothyroidism who comes to the ER with flu like symptoms. She was found to have + UA and was started on Cipro initially which was changed to Zosyn on the RNF. UTI (lower urinary tract infection) 02/22/2015 02/28/2015 Overview: Fevers, N/V UA positive for WBC 11-25 with leukoesterase Received one dose of Ciprofloxacin in the ED. Prior history of Klebsiella oxytoca sensitive to cipro and zosyn and Ecoli which was resistant to ciprofloxacin but sensitive to Zosyn. Ultrasound of transplanted kidney (done 02/23/15) was unremarkable PLAN - Continue Zosyn (02/22- - Blood cultures NGTD - Urine culture + > 100k E Coli - Sensitivities pending - Continue IVF - Monitor I+Os, fever curve, WBC Flu-like symptoms 02/22/2015 02/28/2015 Overview: Complains of nausea, vomiting and myalgia with sick contacts. Flu A and B negative Symptoms of one week duration. Beyond the time frame to receive tamiflu. PLAN - Influenza A & B - Negative - Metoclopramide for nausea DVT prophylaxis 02/22/2015 02/28/2015 Overview: PLAN - Heparin 5000 units q 12 UTI (urinary tract infection) 06/10/2013 09/28/2013 Post-dural puncture headache 06/10/2013 09/28/2013 Urinary tract infection, E. coli 03/17/2013 09/28/2013 Need for prophylactic immunotherapy 06/13/2011 09/28/2013 Anemia, unspecified 04/11/2009 11/21/19 12 Unspecified disease of white blood cells 06/03/2007 01/13/2011 End stage renal disease 10/16/200509/16 Nephritis and nephropathy, n ot specified as acute or chronic, with other specified pathological lesion in kidney, in diseases classified elsewhere 10/16/2005 09/01/2018 Legionnaires' disease 2012 Overview: during SLE flare, serum antigen +, but urine antigen negative; treated anyway Cough 09/28/2013 Overview: jeanna induced Cystitis 09/01/2018 Overview: x1 summer 2004 (presented with fever) documented as of this encounter (statuses as of 09/08/2023) [facility]04-[facility]2015 History of Past illness Narrative* Problem Noted Date Diagnosed Date Resolved Date SUMMARY 02/22/2015 09/01/2018 Overview: Ms Sauceda is a 39 yo F with a PMHx/o kidney transplant, HTN, SLE, hypothyroidism who presented to the ER with fevers (103F), Hypertension, SLE, Hypothyroidism who comes to the ER with flu like symptoms. She was found to have + UA and was started on Cipro initially which was changed to Zosyn on the RNF. UTI (lower urinary tract infection) 02/22/2015 02/28/2015 Overview: Fevers, N/V UA positive for WBC 11-25 with leukoesterase Received one dose of Ciprofloxacin in the ED. Prior history of Klebsiella oxytoca sensitive to cipro and zosyn and Ecoli which was resistant to ciprofloxacin but sensitive to Zosyn. Ultrasound of transplanted kidney (done 02/23/15) was unremarkable PLAN - Continue Zosyn (02/22- - Blood cultures NGTD - Urine culture + > 100k E Coli - Sensitivities pending - Continue IVF - Monitor I+Os, fever curve, WBC Flu-like symptoms 02/22/2015 02/28/2015 Overview: Complains of nausea, vomiting and myalgia with sick contacts. Flu A and B negative Symptoms of one week duration. Beyond the time frame to receive tamiflu. PLAN - Influenza A & B - Negative - Metoclopramide for nausea DVT prophylaxis 02/22/2015 02/28/2015 Overview: PLAN - Heparin 5000 units q 12 UTI (urinary tract infection) 06/10/2013 09/28/2013 Post-dural puncture headache 06/10/2013 09/28/2013 Urinary tract infection, E. coli 03/17/2013 09/28/2013 Need for prophylactic immunotherapy 06/13/2011 09/28/2013 Anemia, unspecified 04/11/2009 11/21/19 Unspecified disease of white blood cells 06/03/2007 01/13/2011 End stage renal disease 10/16/200509/16 Nephritis and nephropathy, n ot specified as acute or chronic, with other specified pathological lesion in kidney, in diseases classified elsewhere 10/16/2005 09/01/2018 Legionnaires' disease 2012 Overview: during SLE flare, serum antigen +, but urine antigen negative; treated anyway Cough 09/28/2013 Overview: jeanna induced Cystitis 09/01/2018 Overview: x1 summer 2004 (presented with fever) documented as of this encounter (statuses as of 09/08/2023) [facility]04[facility] History of Past illness Narrative* Problem Noted Date Diagnosed Date Resolved Date SUMMARY 02/22/2015 09/01/2018 Overview: Ms Sauceda is a 39 yo F with a PMHx/o kidney transplant, HTN, SLE, hypothyroidism who presented to the ER with fevers (103F), Hypertension, SLE, Hypothyroidism who comes to the ER with flu like symptoms. She was found to have + UA and was started on Cipro initially which was changed to Zosyn on the RNF. UTI (lower urinary tract infection) 02/22/2015 02/28/2015 Overview: Fevers, N/V UA positive for WBC 11-25 with leukoesterase Received one dose of Ciprofloxacin in the ED. Prior history of Klebsiella oxytoca sensitive to cipro and zosyn and Ecoli which was resistant to ciprofloxacin but sensitive to Zosyn. Ultrasound of transplanted kidney (done 02/23/15) was unremarkable PLAN - Continue Zosyn (02/22- - Blood cultures NGTD - Urine culture + > 100k E Coli - Sensitivities pending - Continue IVF - Monitor I+Os, fever curve, WBC Flu-like symptoms 02/22/2015 02/28/2015 Overview: Complains of nausea, vomiting and myalgia with sick contacts. Flu A and B negative Symptoms of one week duration. Beyond the time frame to receive tamiflu. PLAN - Influenza A & B - Negative - Metoclopramide for nausea DVT prophylaxis 02/22/2015 02/28/2015 Overview: PLAN - Heparin 5000 units q 12 UTI (urinary tract infection) 06/10/2013 09/28/2013 Post-dural puncture headache 06/10/2013 09/28/2013 Urinary tract infection, E. coli 03/17/2013 09/28/2013 Need for prophylactic immunotherapy 06/13/2011 09/28/2013 Anemia, unspecified 04/11/2009 11/21/19 12 Unspecified disease of white blood cells 06/03/2007 01/13/2011 End stage renal disease 10/16/200509/16 Nephritis and nephropathy, n ot specified as acute or chronic, with other specified pathological lesion in kidney, in diseases classified elsewhere 10/16/2005 09/01/2018 Legionnaires' disease 2012 Overview: during SLE flare, serum antigen +, but urine antigen negative; treated anyway Cough 09/28/2013 Overview: jeanna induced Cystitis 09/01/2018 Overview: x1 summer 2004 (presented with fever) documented as of this encounter (statuses as of 10/15/2023) [facility]04[facility] History of Past illness Narrative* Problem Noted Date Diagnosed Date Resolved Date SUMMARY 02/22/2015 09/01/2018 Overview: Ms Sauceda is a 39 yo F with a PMHx/o kidney transplant, HTN, SLE, hypothyroidism who presented to the ER with fevers (103F), Hypertension, SLE, Hypothyroidism who comes to the ER with flu like symptoms. She was found to have + UA and was started on Cipro initially which was changed to Zosyn on the RNF. UTI (lower urinary tract infection) 02/22/2015 02/28/2015 Overview: Fevers, N/V UA positive for WBC 11-25 with leukoesterase Received one dose of Ciprofloxacin in the ED. Prior history of Klebsiella oxytoca sensitive to cipro and zosyn and Ecoli which was resistant to ciprofloxacin but sensitive to Zosyn. Ultrasound of transplanted kidney (done 02/23/15) was unremarkable PLAN - Continue Zosyn (02/22- - Blood cultures NGTD - Urine culture + > 100k E Coli - Sensitivities pending - Continue IVF - Monitor I+Os, fever curve, WBC Flu-like symptoms 02/22/2015 02/28/2015 Overview: Complains of nausea, vomiting and myalgia with sick contacts. Flu A and B negative Symptoms of one week duration. Beyond the time frame to receive tamiflu. PLAN - Influenza A & B - Negative - Metoclopramide for nausea DVT prophylaxis 02/22/2015 02/28/2015 Overview: PLAN - Heparin 5000 units q 12 UTI (urinary tract infection) 06/10/2013 09/28/2013 Post-dural puncture headache 06/10/2013 09/28/2013 Urinary tract infection, E. coli 03/17/2013 09/28/2013 Need for prophylactic immunotherapy 06/13/2011 09/28/2013 Anemia, unspecified 04/11/2009 11/21/19 12 Unspecified disease of white blood cells 06/03/2007 01/13/2011 End stage renal disease 10/16/200509/16 Nephritis and nephropathy, n ot specified as acute or chronic, with other specified pathological lesion in kidney, in diseases classified elsewhere 10/16/2005 09/01/2018 Legionnaires' disease 2012 Overview: during SLE flare, serum antigen +, but urine antigen negative; treated anyway Cough 09/28/2013 Overview: jeanna induced Cystitis 09/01/2018 Overview: x1 summer 2004 (presented with fever) documented as of this encounter (statuses as of 10/22/2023) [facility] History of Past illness Narrative* Problem Noted Date Diagnosed Date Resolved Date SUMMARY 02/22/2015 09/01/2018 Overview: Ms Sauceda is a 39 yo F with a PMHx/o kidney transplant, HTN, SLE, hypothyroidism who presented to the ER with fevers (103F), Hypertension, SLE, Hypothyroidism who comes to the ER with flu like symptoms. She was found to have + UA and was started on Cipro initially which was changed to Zosyn on the RNF. UTI (lower urinary tract infection) 02/22/2015 02/28/2015 Overview: Fevers, N/V UA positive for WBC 11-25 with leukoesterase Received one dose of Ciprofloxacin in the ED. Prior history of Klebsiella oxytoca sensitive to cipro and zosyn and Ecoli which was resistant to ciprofloxacin but sensitive to Zosyn. Ultrasound of transplanted kidney (done 02/23/15) was unremarkable PLAN - Continue Zosyn (02/22- - Blood cultures NGTD - Urine culture + > 100k E Coli - Sensitivities pending - Continue IVF - Monitor I+Os, fever curve, WBC Flu-like symptoms 02/22/2015 02/28/2015 Overview: Complains of nausea, vomiting and myalgia with sick contacts. Flu A and B negative Symptoms of one week duration. Beyond the time frame to receive tamiflu. PLAN - Influenza A & B - Negative - Metoclopramide for nausea DVT prophylaxis 02/22/2015 02/28/2015 Overview: PLAN - Heparin 5000 units q 12 UTI (urinary tract infection) 06/10/2013 09/28/2013 Post-dural puncture headache 06/10/2013 09/28/2013 Urinary tract infection, E. coli 03/17/2013 09/28/2013 Need for prophylactic immunotherapy 06/13/2011 09/28/2013 Anemia, unspecified 04/11/2009 11/21/19 12 Unspecified disease of white blood cells 06/03/2007 01/13/2011 End stage renal disease 10/16/200509/16 Nephritis and nephropathy, n ot specified as acute or chronic, with other specified pathological lesion in kidney, in diseases classified elsewhere 10/16/2005 09/01/2018 Legionnaires' disease 2012 Overview: during SLE flare, serum antigen +, but urine antigen negative; treated anyway Cough 09/28/2013 Overview: jeanna induced Cystitis 09/01/2018 Overview: x1 summer 2004 (presented with fever) documented as of this encounter (statuses as of 11/06/2023) [facility]04-09-2015 History of Past illness Narrative* Problem Noted Date Diagnosed Date Resolved Date SUMMARY 02/22/2015 09/01/2018 Overview: Ms Sauceda is a 39 yo F with a PMHx/o kidney transplant, HTN, SLE, hypothyroidism who presented to the ER with fevers (103F), Hypertension, SLE, Hypothyroidism who comes to the ER with flu like symptoms. She was found to have + UA and was started on Cipro initially which was changed to Zosyn on the RNF. UTI (lower urinary tract infection) 02/22/2015 02/28/2015 Overview: Fevers, N/V UA positive for WBC 11-25 with leukoesterase Received one dose of Ciprofloxacin in the ED. Prior history of Klebsiella oxytoca sensitive to cipro and zosyn and Ecoli which was resistant to ciprofloxacin but sensitive to Zosyn. Ultrasound of transplanted kidney (done 02/23/15) was unremarkable PLAN - Continue Zosyn (02/22- - Blood cultures NGTD - Urine culture + > 100k E Coli - Sensitivities pending - Continue IVF - Monitor I+Os, fever curve, WBC Flu-like symptoms 02/22/2015 02/28/2015 Overview: Complains of nausea, vomiting and myalgia with sick contacts. Flu A and B negative Symptoms of one week duration. Beyond the time frame to receive tamiflu. PLAN - Influenza A & B - Negative - Metoclopramide for nausea DVT prophylaxis 02/22/2015 02/28/2015 Overview: PLAN - Heparin 5000 units q 12 UTI (urinary tract infection) 06/10/2013 09/28/2013 Post-dural puncture headache 06/10/2013 09/28/2013 Urinary tract infection, E. coli 03/17/2013 09/28/2013 Need for prophylactic immunotherapy 06/13/2011 09/28/2013 Anemia, unspecified 04/11/2009 11/21/19 Unspecified disease of white blood cells 06/03/2007 01/13/2011 End stage renal disease 10/16/200509/16 Nephritis and nephropathy, n ot specified as acute or chronic, with other specified pathological lesion in kidney, in diseases classified elsewhere 10/16/2005 09/01/2018 Legionnaires' disease 2012 Overview: during SLE flare, serum antigen +, but urine antigen negative; treated anyway Cough 09/28/2013 Overview: jeanna induced Cystitis 09/01/2018 Overview: x1 summer 2004 (presented with fever) documented as of this encounter (statuses as of 12/28/2023) [facility]04-09-2015 History of Past illness Narrative* Problem Noted Date Diagnosed Date Resolved Date SUMMARY 02/22/2015 09/01/2018 Overview: Ms Sauceda is a 39 yo F with a PMHx/o kidney transplant, HTN, SLE, hypothyroidism who presented to the ER with fevers (103F), Hypertension, SLE, Hypothyroidism who comes to the ER with flu like symptoms. She was found to have + UA and was started on Cipro initially which was changed to Zosyn on the RNF. UTI (lower urinary tract infection) 02/22/2015 02/28/2015 Overview: Fevers, N/V UA positive for WBC 11-25 with leukoesterase Received one dose of Ciprofloxacin in the ED. Prior history of Klebsiella oxytoca sensitive to cipro and zosyn and Ecoli which was resistant to ciprofloxacin but sensitive to Zosyn. Ultrasound of transplanted kidney (done 02/23/15) was unremarkable PLAN - Continue Zosyn (02/22- - Blood cultures NGTD - Urine culture + > 100k E Coli - Sensitivities pending - Continue IVF - Monitor I+Os, fever curve, WBC Flu-like symptoms 02/22/2015 02/28/2015 Overview: Complains of nausea, vomiting and myalgia with sick contacts. Flu A and B negative Symptoms of one week duration. Beyond the time frame to receive tamiflu. PLAN - Influenza A & B - Negative - Metoclopramide for nausea DVT prophylaxis 02/22/2015 02/28/2015 Overview: PLAN - Heparin 5000 units q 12 UTI (urinary tract infection) 06/10/2013 09/28/2013 Post-dural puncture headache 06/10/2013 09/28/2013 Urinary tract infection, E. coli 03/17/2013 09/28/2013 Need for prophylactic immunotherapy 06/13/2011 09/28/2013 Anemia, unspecified 04/11/2009 11/21/19 12 Unspecified disease of white blood cells 06/03/2007 01/13/2011 End stage renal disease 10/16/200509/16 Nephritis and nephropathy, n ot specified as acute or chronic, with other specified pathological lesion in kidney, in diseases classified elsewhere 10/16/2005 09/01/2018 Legionnaires' disease 2012 Overview: during SLE flare, serum antigen +, but urine antigen negative; treated anyway Cough 09/28/2013 Overview: jeanna induced Cystitis 09/01/2018 Overview: x1 summer 2004 (presented with fever) documented as of this encounter (statuses as of 12/29/2023) [facility]04-[facility]-2015 History of Past illness Narrative* Problem Noted Date Diagnosed Date Resolved Date SUMMARY 02/22/2015 09/01/2018 Overview: Ms Sauceda is a 39 yo F with a PMHx/o kidney transplant, HTN, SLE, hypothyroidism who presented to the ER with fevers (103F), Hypertension, SLE, Hypothyroidism who comes to the ER with flu like symptoms. She was found to have + UA and was started on Cipro initially which was changed to Zosyn on the RNF. UTI (lower urinary tract infection) 02/22/2015 02/28/2015 Overview: Fevers, N/V UA positive for WBC 11-25 with leukoesterase Received one dose of Ciprofloxacin in the ED. Prior history of Klebsiella oxytoca sensitive to cipro and zosyn and Ecoli which was resistant to ciprofloxacin but sensitive to Zosyn. Ultrasound of transplanted kidney (done 02/23/15) was unremarkable PLAN - Continue Zosyn (02/22- - Blood cultures NGTD - Urine culture + > 100k E Coli - Sensitivities pending - Continue IVF - Monitor I+Os, fever curve, WBC Flu-like symptoms 02/22/2015 02/28/2015 Overview: Complains of nausea, vomiting and myalgia with sick contacts. Flu A and B negative Symptoms of one week duration. Beyond the time frame to receive tamiflu. PLAN - Influenza A & B - Negative - Metoclopramide for nausea DVT prophylaxis 02/22/2015 02/28/2015 Overview: PLAN - Heparin 5000 units q 12 UTI (urinary tract infection) 06/10/2013 09/28/2013 Post-dural puncture headache 06/10/2013 09/28/2013 Urinary tract infection, E. coli 03/17/2013 09/28/2013 Need for prophylactic immunotherapy 06/13/2011 09/28/2013 Anemia, unspecified 04/11/2009 11/21/19 12 Unspecified disease of white blood cells 06/03/2007 01/13/2011 End stage renal disease 10/16/200509/16 Nephritis and nephropathy, n ot specified as acute or chronic, with other specified pathological lesion in kidney, in diseases classified elsewhere 10/16/2005 09/01/2018 Legionnaires' disease 2012 Overview: during SLE flare, serum antigen +, but urine antigen negative; treated anyway Cough 09/28/2013 Overview: jeanna induced Cystitis 09/01/2018 Overview: x1 summer 2004 (presented with fever) documented as of this encounter (statuses as of 01/01/2024) [facility]04-[facility]2015 History of Past illness Narrative* Problem Noted Date Diagnosed Date Resolved Date SUMMARY 02/22/2015 09/01/2018 Overview: Ms Sauceda is a 39 yo F with a PMHx/o kidney transplant, HTN, SLE, hypothyroidism who presented to the ER with fevers (103F), Hypertension, SLE, Hypothyroidism who comes to the ER with flu like symptoms. She was found to have + UA and was started on Cipro initially which was changed to Zosyn on the RNF. UTI (lower urinary tract infection) 02/22/2015 02/28/2015 Overview: Fevers, N/V UA positive for WBC 11-25 with leukoesterase Received one dose of Ciprofloxacin in the ED. Prior history of Klebsiella oxytoca sensitive to cipro and zosyn and Ecoli which was resistant to ciprofloxacin but sensitive to Zosyn. Ultrasound of transplanted kidney (done 02/23/15) was unremarkable PLAN - Continue Zosyn (02/22- - Blood cultures NGTD - Urine culture + > 100k E Coli - Sensitivities pending - Continue IVF - Monitor I+Os, fever curve, WBC Flu-like symptoms 02/22/2015 02/28/2015 Overview: Complains of nausea, vomiting and myalgia with sick contacts. Flu A and B negative Symptoms of one week duration. Beyond the time frame to receive tamiflu. PLAN - Influenza A & B - Negative - Metoclopramide for nausea DVT prophylaxis 02/22/2015 02/28/2015 Overview: PLAN - Heparin 5000 units q 12 UTI (urinary tract infection) 06/10/2013 09/28/2013 Post-dural puncture headache 06/10/2013 09/28/2013 Urinary tract infection, E. coli 03/17/2013 09/28/2013 Need for prophylactic immunotherapy 06/13/2011 09/28/2013 Anemia, unspecified 04/11/2009 11/21/19 12 Unspecified disease of white blood cells 06/03/2007 01/13/2011 End stage renal disease 10/16/200509/16 Nephritis and nephropathy, n ot specified as acute or chronic, with other specified pathological lesion in kidney, in diseases classified elsewhere 10/16/2005 09/01/2018 Legionnaires' disease 2012 Overview: during SLE flare, serum antigen +, but urine antigen negative; treated anyway Cough 09/28/2013 Overview: jeanna induced Cystitis 09/01/2018 Overview: x1 summer 2004 (presented with fever) documented as of this encounter (statuses as of 01/07/2024) [facility]04-[facility]2015 History of Past illness Narrative* Problem Noted Date Diagnosed Date Resolved Date SUMMARY 02/22/2015 09/01/2018 Overview: Ms Sauceda is a 39 yo F with a PMHx/o kidney transplant, HTN, SLE, hypothyroidism who presented to the ER with fevers (103F), Hypertension, SLE, Hypothyroidism who comes to the ER with flu like symptoms. She was found to have + UA and was started on Cipro initially which was changed to Zosyn on the RNF. UTI (lower urinary tract infection) 02/22/2015 02/28/2015 Overview: Fevers, N/V UA positive for WBC 11-25 with leukoesterase Received one dose of Ciprofloxacin in the ED. Prior history of Klebsiella oxytoca sensitive to cipro and zosyn and Ecoli which was resistant to ciprofloxacin but sensitive to Zosyn. Ultrasound of transplanted kidney (done 02/23/15) was unremarkable PLAN - Continue Zosyn (02/22- - Blood cultures NGTD - Urine culture + > 100k E Coli - Sensitivities pending - Continue IVF - Monitor I+Os, fever curve, WBC Flu-like symptoms 02/22/2015 02/28/2015 Overview: Complains of nausea, vomiting and myalgia with sick contacts. Flu A and B negative Symptoms of one week duration. Beyond the time frame to receive tamiflu. PLAN - Influenza A & B - Negative - Metoclopramide for nausea DVT prophylaxis 02/22/2015 02/28/2015 Overview: PLAN - Heparin 5000 units q 12 UTI (urinary tract infection) 06/10/2013 09/28/2013 Post-dural puncture headache 06/10/2013 09/28/2013 Urinary tract infection, E. coli 03/17/2013 09/28/2013 Need for prophylactic immunotherapy 06/13/2011 09/28/2013 Anemia, unspecified 04/11/2009 11/21/19 12 Unspecified disease of white blood cells 06/03/2007 01/13/2011 End stage renal disease 10/16/200509/16 Nephritis and nephropathy, n ot specified as acute or chronic, with other specified pathological lesion in kidney, in diseases classified elsewhere 10/16/2005 09/01/2018 Legionnaires' disease 2012 Overview: during SLE flare, serum antigen +, but urine antigen negative; treated anyway Cough 09/28/2013 Overview: jeanna induced Cystitis 09/01/2018 Overview: x1 summer 2004 (presented with fever) documented as of this encounter (statuses as of 01/07/2024) [facility]04-[facility]2015 History of Past illness Narrative* Problem Noted Date Diagnosed Date Resolved Date SUMMARY 02/22/2015 09/01/2018 Overview: Ms Sauceda is a 39 yo F with a PMHx/o kidney transplant, HTN, SLE, hypothyroidism who presented to the ER with fevers (103F), Hypertension, SLE, Hypothyroidism who comes to the ER with flu like symptoms. She was found to have + UA and was started on Cipro initially which was changed to Zosyn on the RNF. UTI (lower urinary tract infection) 02/22/2015 02/28/2015 Overview: Fevers, N/V UA positive for WBC 11-25 with leukoesterase Received one dose of Ciprofloxacin in the ED. Prior history of Klebsiella oxytoca sensitive to cipro and zosyn and Ecoli which was resistant to ciprofloxacin but sensitive to Zosyn. Ultrasound of transplanted kidney (done 02/23/15) was unremarkable PLAN - Continue Zosyn (02/22- - Blood cultures NGTD - Urine culture + > 100k E Coli - Sensitivities pending - Continue IVF - Monitor I+Os, fever curve, WBC Flu-like symptoms 02/22/2015 02/28/2015 Overview: Complains of nausea, vomiting and myalgia with sick contacts. Flu A and B negative Symptoms of one week duration. Beyond the time frame to receive tamiflu. PLAN - Influenza A & B - Negative - Metoclopramide for nausea DVT prophylaxis 02/22/2015 02/28/2015 Overview: PLAN - Heparin 5000 units q 12 UTI (urinary tract infection) 06/10/2013 09/28/2013 Post-dural puncture headache 06/10/2013 09/28/2013 Urinary tract infection, E. coli 03/17/2013 09/28/2013 Need for prophylactic immunotherapy 06/13/2011 09/28/2013 Anemia, unspecified 04/11/2009 11/21/19 12 Unspecified disease of white blood cells 06/03/2007 01/13/2011 End stage renal disease 10/16/200509/16 Nephritis and nephropathy, n ot specified as acute or chronic, with other specified pathological lesion in kidney, in diseases classified elsewhere 10/16/2005 09/01/2018 Legionnaires' disease 2012 Overview: during SLE flare, serum antigen +, but urine antigen negative; treated anyway Cough 09/28/2013 Overview: jeanna induced Cystitis 09/01/2018 Overview: x1 summer 2004 (presented with fever) documented as of this encounter (statuses as of 01/08/2024) [facility]04-[facility]2015 History of Past illness Narrative* Problem Noted Date Diagnosed Date Resolved Date SUMMARY 02/22/2015 09/01/2018 Overview: Ms Sauceda is a 39 yo F with a PMHx/o kidney transplant, HTN, SLE, hypothyroidism who presented to the ER with fevers (103F), Hypertension, SLE, Hypothyroidism who comes to the ER with flu like symptoms. She was found to have + UA and was started on Cipro initially which was changed to Zosyn on the RNF. UTI (lower urinary tract infection) 02/22/2015 02/28/2015 Overview: Fevers, N/V UA positive for WBC 11-25 with leukoesterase Received one dose of Ciprofloxacin in the ED. Prior history of Klebsiella oxytoca sensitive to cipro and zosyn and Ecoli which was resistant to ciprofloxacin but sensitive to Zosyn. Ultrasound of transplanted kidney (done 02/23/15) was unremarkable PLAN - Continue Zosyn (02/22- - Blood cultures NGTD - Urine culture + > 100k E Coli - Sensitivities pending - Continue IVF - Monitor I+Os, fever curve, WBC Flu-like symptoms 02/22/2015 02/28/2015 Overview: Complains of nausea, vomiting and myalgia with sick contacts. Flu A and B negative Symptoms of one week duration. Beyond the time frame to receive tamiflu. PLAN - Influenza A & B - Negative - Metoclopramide for nausea DVT prophylaxis 02/22/2015 02/28/2015 Overview: PLAN - Heparin 5000 units q 12 UTI (urinary tract infection) 06/10/2013 09/28/2013 Post-dural puncture headache 06/10/2013 09/28/2013 Urinary tract infection, E. coli 03/17/2013 09/28/2013 Need for prophylactic immunotherapy 06/13/2011 09/28/2013 Anemia, unspecified 04/11/2009 11/21/19 12 Unspecified disease of white blood cells 06/03/2007 01/13/2011 End stage renal disease 10/16/200509/16 Nephritis and nephropathy, n ot specified as acute or chronic, with other specified pathological lesion in kidney, in diseases classified elsewhere 10/16/2005 09/01/2018 Legionnaires' disease 2012 Overview: during SLE flare, serum antigen +, but urine antigen negative; treated anyway Cough 09/28/2013 Overview: jeanna induced Cystitis 09/01/2018 Overview: x1 summer 2004 (presented with fever) documented as of this encounter (statuses as of 01/12/2024) [facility]04-[facility]2015 History of Past illness Narrative* Problem Noted Date Diagnosed Date Resolved Date SUMMARY 02/22/2015 09/01/2018 Overview: Ms Sauceda is a 39 yo F with a PMHx/o kidney transplant, HTN, SLE, hypothyroidism who presented to the ER with fevers (103F), Hypertension, SLE, Hypothyroidism who comes to the ER with flu like symptoms. She was found to have + UA and was started on Cipro initially which was changed to Zosyn on the RNF. UTI (lower urinary tract infection) 02/22/2015 02/28/2015 Overview: Fevers, N/V UA positive for WBC 11-25 with leukoesterase Received one dose of Ciprofloxacin in the ED. Prior history of Klebsiella oxytoca sensitive to cipro and zosyn and Ecoli which was resistant to ciprofloxacin but sensitive to Zosyn. Ultrasound of transplanted kidney (done 02/23/15) was unremarkable PLAN - Continue Zosyn (02/22- - Blood cultures NGTD - Urine culture + > 100k E Coli - Sensitivities pending - Continue IVF - Monitor I+Os, fever curve, WBC Flu-like symptoms 02/22/2015 02/28/2015 Overview: Complains of nausea, vomiting and myalgia with sick contacts. Flu A and B negative Symptoms of one week duration. Beyond the time frame to receive tamiflu. PLAN - Influenza A & B - Negative - Metoclopramide for nausea DVT prophylaxis 02/22/2015 02/28/2015 Overview: PLAN - Heparin 5000 units q 12 UTI (urinary tract infection) 06/10/2013 09/28/2013 Post-dural puncture headache 06/10/2013 09/28/2013 Urinary tract infection, E. coli 03/17/2013 09/28/2013 Need for prophylactic immunotherapy 06/13/2011 09/28/2013 Anemia, unspecified 04/11/2009 11/21/19 12 Unspecified disease of white blood cells 06/03/2007 01/13/2011 End stage renal disease 10/16/200509/16 Nephritis and nephropathy, n ot specified as acute or chronic, with other specified pathological lesion in kidney, in diseases classified elsewhere 10/16/2005 09/01/2018 Legionnaires' disease 2012 Overview: during SLE flare, serum antigen +, but urine antigen negative; treated anyway Cough 09/28/2013 Overview: jeanna induced Cystitis 09/01/2018 Overview: x1 summer 2004 (presented with fever) documented as of this encounter (statuses as of 01/13/2024) [facility] History of Past illness Narrative* Problem Noted Date Diagnosed Date Resolved Date SUMMARY 02/22/2015 09/01/2018 Overview: Ms Sauceda is a 39 yo F with a PMHx/o kidney transplant, HTN, SLE, hypothyroidism who presented to the ER with fevers (103F), Hypertension, SLE, Hypothyroidism who comes to the ER with flu like symptoms. She was found to have + UA and was started on Cipro initially which was changed to Zosyn on the RNF. UTI (lower urinary tract infection) 02/22/2015 02/28/2015 Overview: Fevers, N/V UA positive for WBC 11-25 with leukoesterase Received one dose of Ciprofloxacin in the ED. Prior history of Klebsiella oxytoca sensitive to cipro and zosyn and Ecoli which was resistant to ciprofloxacin but sensitive to Zosyn. Ultrasound of transplanted kidney (done 02/23/15) was unremarkable PLAN - Continue Zosyn (02/22- - Blood cultures NGTD - Urine culture + > 100k E Coli - Sensitivities pending - Continue IVF - Monitor I+Os, fever curve, WBC Flu-like symptoms 02/22/2015 02/28/2015 Overview: Complains of nausea, vomiting and myalgia with sick contacts. Flu A and B negative Symptoms of one week duration. Beyond the time frame to receive tamiflu. PLAN - Influenza A & B - Negative - Metoclopramide for nausea DVT prophylaxis 02/22/2015 02/28/2015 Overview: PLAN - Heparin 5000 units q 12 UTI (urinary tract infection) 06/10/2013 09/28/2013 Post-dural puncture headache 06/10/2013 09/28/2013 Urinary tract infection, E. coli 03/17/2013 09/28/2013 Need for prophylactic immunotherapy 06/13/2011 09/28/2013 Anemia, unspecified 04/11/2009 11/21/19 12 Unspecified disease of white blood cells 06/03/2007 01/13/2011 End stage renal disease 10/16/200509/16 Nephritis and nephropathy, n ot specified as acute or chronic, with other specified pathological lesion in kidney, in diseases classified elsewhere 10/16/2005 09/01/2018 Legionnaires' disease 2012 Overview: during SLE flare, serum antigen +, but urine antigen negative; treated anyway Cough 09/28/2013 Overview: jeanna induced Cystitis 09/01/2018 Overview: x1 summer 2004 (presented with fever) documented as of this encounter (statuses as of 01/26/2024) [facility] History of Past illness Narrative* Problem Noted Date Diagnosed Date Resolved Date SUMMARY 02/22/2015 09/01/2018 Overview: Ms Sauceda is a 39 yo F with a PMHx/o kidney transplant, HTN, SLE, hypothyroidism who presented to the ER with fevers (103F), Hypertension, SLE, Hypothyroidism who comes to the ER with flu like symptoms. She was found to have + UA and was started on Cipro initially which was changed to Zosyn on the RNF. UTI (lower urinary tract infection) 02/22/2015 02/28/2015 Overview: Fevers, N/V UA positive for WBC 11-25 with leukoesterase Received one dose of Ciprofloxacin in the ED. Prior history of Klebsiella oxytoca sensitive to cipro and zosyn and Ecoli which was resistant to ciprofloxacin but sensitive to Zosyn. Ultrasound of transplanted kidney (done 02/23/15) was unremarkable PLAN - Continue Zosyn (02/22- - Blood cultures NGTD - Urine culture + > 100k E Coli - Sensitivities pending - Continue IVF - Monitor I+Os, fever curve, WBC Flu-like symptoms 02/22/2015 02/28/2015 Overview: Complains of nausea, vomiting and myalgia with sick contacts. Flu A and B negative Symptoms of one week duration. Beyond the time frame to receive tamiflu. PLAN - Influenza A & B - Negative - Metoclopramide for nausea DVT prophylaxis 02/22/2015 02/28/2015 Overview: PLAN - Heparin 5000 units q 12 UTI (urinary tract infection) 06/10/2013 09/28/2013 Post-dural puncture headache 06/10/2013 09/28/2013 Urinary tract infection, E. coli 03/17/2013 09/28/2013 Need for prophylactic immunotherapy 06/13/2011 09/28/2013 Anemia, unspecified 04/11/2009 11/21/19 12 Unspecified disease of white blood cells 06/03/2007 01/13/2011 End stage renal disease 10/16/200509/16 Nephritis and nephropathy, n ot specified as acute or chronic, with other specified pathological lesion in kidney, in diseases classified elsewhere 10/16/2005 09/01/2018 Legionnaires' disease 2012 Overview: during SLE flare, serum antigen +, but urine antigen negative; treated anyway Cough 09/28/2013 Overview: jeanna induced Cystitis 09/01/2018 Overview: x1 summer 2004 (presented with fever) documented as of this encounter (statuses as of 01/26/2024) [facility] History of Past illness Narrative* Problem Noted Date Diagnosed Date Resolved Date SUMMARY 02/22/2015 09/01/2018 Overview: Ms Sauceda is a 39 yo F with a PMHx/o kidney transplant, HTN, SLE, hypothyroidism who presented to the ER with fevers (103F), Hypertension, SLE, Hypothyroidism who comes to the ER with flu like symptoms. She was found to have + UA and was started on Cipro initially which was changed to Zosyn on the RNF. UTI (lower urinary tract infection) 02/22/2015 02/28/2015 Overview: Fevers, N/V UA positive for WBC 11-25 with leukoesterase Received one dose of Ciprofloxacin in the ED. Prior history of Klebsiella oxytoca sensitive to cipro and zosyn and Ecoli which was resistant to ciprofloxacin but sensitive to Zosyn. Ultrasound of transplanted kidney (done 02/23/15) was unremarkable PLAN - Continue Zosyn (02/22- - Blood cultures NGTD - Urine culture + > 100k E Coli - Sensitivities pending - Continue IVF - Monitor I+Os, fever curve, WBC Flu-like symptoms 02/22/2015 02/28/2015 Overview: Complains of nausea, vomiting and myalgia with sick contacts. Flu A and B negative Symptoms of one week duration. Beyond the time frame to receive tamiflu. PLAN - Influenza A & B - Negative - Metoclopramide for nausea DVT prophylaxis 02/22/2015 02/28/2015 Overview: PLAN - Heparin 5000 units q 12 UTI (urinary tract infection) 06/10/2013 09/28/2013 Post-dural puncture headache 06/10/2013 09/28/2013 Urinary tract infection, E. coli 03/17/2013 09/28/2013 Need for prophylactic immunotherapy 06/13/2011 09/28/2013 Anemia, unspecified 04/11/2009 11/21/19 12 Unspecified disease of white blood cells 06/03/2007 01/13/2011 End stage renal disease 10/16/200509/16 Nephritis and nephropathy, n ot specified as acute or chronic, with other specified pathological lesion in kidney, in diseases classified elsewhere 10/16/2005 09/01/2018 Legionnaires' disease 2012 Overview: during SLE flare, serum antigen +, but urine antigen negative; treated anyway Cough 09/28/2013 Overview: jeanna induced Cystitis 09/01/2018 Overview: x1 summer 2004 (presented with fever) documented as of this encounter (statuses as of 01/28/2024) [facility] History of Past illness Narrative* Problem Noted Date Diagnosed Date Resolved Date SUMMARY 02/22/2015 09/01/2018 Overview: Ms Sauceda is a 39 yo F with a PMHx/o kidney transplant, HTN, SLE, hypothyroidism who presented to the ER with fevers (103F), Hypertension, SLE, Hypothyroidism who comes to the ER with flu like symptoms. She was found to have + UA and was started on Cipro initially which was changed to Zosyn on the RNF. UTI (lower urinary tract infection) 02/22/2015 02/28/2015 Overview: Fevers, N/V UA positive for WBC 11-25 with leukoesterase Received one dose of Ciprofloxacin in the ED. Prior history of Klebsiella oxytoca sensitive to cipro and zosyn and Ecoli which was resistant to ciprofloxacin but sensitive to Zosyn. Ultrasound of transplanted kidney (done 02/23/15) was unremarkable PLAN - Continue Zosyn (02/22- - Blood cultures NGTD - Urine culture + > 100k E Coli - Sensitivities pending - Continue IVF - Monitor I+Os, fever curve, WBC Flu-like symptoms 02/22/2015 02/28/2015 Overview: Complains of nausea, vomiting and myalgia with sick contacts. Flu A and B negative Symptoms of one week duration. Beyond the time frame to receive tamiflu. PLAN - Influenza A & B - Negative - Metoclopramide for nausea DVT prophylaxis 02/22/2015 02/28/2015 Overview: PLAN - Heparin 5000 units q 12 UTI (urinary tract infection) 06/10/2013 09/28/2013 Post-dural puncture headache 06/10/2013 09/28/2013 Urinary tract infection, E. coli 03/17/2013 09/28/2013 Need for prophylactic immunotherapy 06/13/2011 09/28/2013 Anemia, unspecified 04/11/2009 11/21/19 12 Unspecified disease of white blood cells 06/03/2007 01/13/2011 End stage renal disease 10/16/200509/16 Nephritis and nephropathy, n ot specified as acute or chronic, with other specified pathological lesion in kidney, in diseases classified elsewhere 10/16/2005 09/01/2018 Legionnaires' disease 2012 Overview: during SLE flare, serum antigen +, but urine antigen negative; treated anyway Cough 09/28/2013 Overview: jeanna induced Cystitis 09/01/2018 Overview: x1 summer 2004 (presented with fever) documented as of this encounter (statuses as of 02/08/2024) [facility]04-[facility] History of Past illness Narrative* Problem Noted Date Diagnosed Date Resolved Date SUMMARY 02/22/2015 09/01/2018 Overview: Ms Sauceda is a 39 yo F with a PMHx/o kidney transplant, HTN, SLE, hypothyroidism who presented to the ER with fevers (103F), Hypertension, SLE, Hypothyroidism who comes to the ER with flu like symptoms. She was found to have + UA and was started on Cipro initially which was changed to Zosyn on the RNF. UTI (lower urinary tract infection) 02/22/2015 02/28/2015 Overview: Fevers, N/V UA positive for WBC 11-25 with leukoesterase Received one dose of Ciprofloxacin in the ED. Prior history of Klebsiella oxytoca sensitive to cipro and zosyn and Ecoli which was resistant to ciprofloxacin but sensitive to Zosyn. Ultrasound of transplanted kidney (done 02/23/15) was unremarkable PLAN - Continue Zosyn (02/22- - Blood cultures NGTD - Urine culture + > 100k E Coli - Sensitivities pending - Continue IVF - Monitor I+Os, fever curve, WBC Flu-like symptoms 02/22/2015 02/28/2015 Overview: Complains of nausea, vomiting and myalgia with sick contacts. Flu A and B negative Symptoms of one week duration. Beyond the time frame to receive tamiflu. PLAN - Influenza A & B - Negative - Metoclopramide for nausea DVT prophylaxis 02/22/2015 02/28/2015 Overview: PLAN - Heparin 5000 units q 12 UTI (urinary tract infection) 06/10/2013 09/28/2013 Post-dural puncture headache 06/10/2013 09/28/2013 Urinary tract infection, E. coli 03/17/2013 09/28/2013 Need for prophylactic immunotherapy 06/13/2011 09/28/2013 Anemia, unspecified 04/11/2009 11/21/19 Unspecified disease of white blood cells 06/03/2007 01/13/2011 End stage renal disease 10/16/200509/16 Nephritis and nephropathy, n ot specified as acute or chronic, with other specified pathological lesion in kidney, in diseases classified elsewhere 10/16/2005 09/01/2018 Legionnaires' disease 2012 Overview: during SLE flare, serum antigen +, but urine antigen negative; treated anyway Cough 09/28/2013 Overview: jeanna induced Cystitis 09/01/2018 Overview: x1 summer 2004 (presented with fever) documented as of this encounter (statuses as of 02/09/2024) [facility]04-[facility]2015 History of Past illness Narrative* Problem Noted Date Diagnosed Date Resolved Date SUMMARY 02/22/2015 09/01/2018 Overview: Ms Sauceda is a 39 yo F with a PMHx/o kidney transplant, HTN, SLE, hypothyroidism who presented to the ER with fevers (103F), Hypertension, SLE, Hypothyroidism who comes to the ER with flu like symptoms. She was found to have + UA and was started on Cipro initially which was changed to Zosyn on the RNF. UTI (lower urinary tract infection) 02/22/2015 02/28/2015 Overview: Fevers, N/V UA positive for WBC 11-25 with leukoesterase Received one dose of Ciprofloxacin in the ED. Prior history of Klebsiella oxytoca sensitive to cipro and zosyn and Ecoli which was resistant to ciprofloxacin but sensitive to Zosyn. Ultrasound of transplanted kidney (done 02/23/15) was unremarkable PLAN - Continue Zosyn (02/22- - Blood cultures NGTD - Urine culture + > 100k E Coli - Sensitivities pending - Continue IVF - Monitor I+Os, fever curve, WBC Flu-like symptoms 02/22/2015 02/28/2015 Overview: Complains of nausea, vomiting and myalgia with sick contacts. Flu A and B negative Symptoms of one week duration. Beyond the time frame to receive tamiflu. PLAN - Influenza A & B - Negative - Metoclopramide for nausea DVT prophylaxis 02/22/2015 02/28/2015 Overview: PLAN - Heparin 5000 units q 12 UTI (urinary tract infection) 06/10/2013 09/28/2013 Post-dural puncture headache 06/10/2013 09/28/2013 Urinary tract infection, E. coli 03/17/2013 09/28/2013 Need for prophylactic immunotherapy 06/13/2011 09/28/2013 Anemia, unspecified 04/11/2009 11/21/19 12 Unspecified disease of white blood cells 06/03/2007 01/13/2011 End stage renal disease 10/16/200509/16 Nephritis and nephropathy, n ot specified as acute or chronic, with other specified pathological lesion in kidney, in diseases classified elsewhere 10/16/2005 09/01/2018 Legionnaires' disease 2012 Overview: during SLE flare, serum antigen +, but urine antigen negative; treated anyway Cough 09/28/2013 Overview: jeanna induced Cystitis 09/01/2018 Overview: x1 summer 2004 (presented with fever) documented as of this encounter (statuses as of 02/09/2024) [facility]04-[facility] History of Past illness Narrative* Problem Noted Date Diagnosed Date Resolved Date SUMMARY 02/22/2015 09/01/2018 Overview: Ms Sauceda is a 39 yo F with a PMHx/o kidney transplant, HTN, SLE, hypothyroidism who presented to the ER with fevers (103F), Hypertension, SLE, Hypothyroidism who comes to the ER with flu like symptoms. She was found to have + UA and was started on Cipro initially which was changed to Zosyn on the RNF. UTI (lower urinary tract infection) 02/22/2015 02/28/2015 Overview: Fevers, N/V UA positive for WBC 11-25 with leukoesterase Received one dose of Ciprofloxacin in the ED. Prior history of Klebsiella oxytoca sensitive to cipro and zosyn and Ecoli which was resistant to ciprofloxacin but sensitive to Zosyn. Ultrasound of transplanted kidney (done 02/23/15) was unremarkable PLAN - Continue Zosyn (02/22- - Blood cultures NGTD - Urine culture + > 100k E Coli - Sensitivities pending - Continue IVF - Monitor I+Os, fever curve, WBC Flu-like symptoms 02/22/2015 02/28/2015 Overview: Complains of nausea, vomiting and myalgia with sick contacts. Flu A and B negative Symptoms of one week duration. Beyond the time frame to receive tamiflu. PLAN - Influenza A & B - Negative - Metoclopramide for nausea DVT prophylaxis 02/22/2015 02/28/2015 Overview: PLAN - Heparin 5000 units q 12 UTI (urinary tract infection) 06/10/2013 09/28/2013 Post-dural puncture headache 06/10/2013 09/28/2013 Urinary tract infection, E. coli 03/17/2013 09/28/2013 Need for prophylactic immunotherapy 06/13/2011 09/28/2013 Anemia, unspecified 04/11/2009 11/21/19 12 Unspecified disease of white blood cells 06/03/2007 01/13/2011 End stage renal disease 10/16/200509/16 Nephritis and nephropathy, n ot specified as acute or chronic, with other specified pathological lesion in kidney, in diseases classified elsewhere 10/16/2005 09/01/2018 Legionnaires' disease 2012 Overview: during SLE flare, serum antigen +, but urine antigen negative; treated anyway Cough 09/28/2013 Overview: jeanna induced Cystitis 09/01/2018 Overview: x1 summer 2004 (presented with fever) documented as of this encounter (statuses as of 02/23/2024) [facility]04[facility] History of Past illness Narrative* Problem Noted Date Diagnosed Date Resolved Date SUMMARY 02/22/2015 09/01/2018 Overview: Ms Sauceda is a 39 yo F with a PMHx/o kidney transplant, HTN, SLE, hypothyroidism who presented to the ER with fevers (103F), Hypertension, SLE, Hypothyroidism who comes to the ER with flu like symptoms. She was found to have + UA and was started on Cipro initially which was changed to Zosyn on the RNF. UTI (lower urinary tract infection) 02/22/2015 02/28/2015 Overview: Fevers, N/V UA positive for WBC 11-25 with leukoesterase Received one dose of Ciprofloxacin in the ED. Prior history of Klebsiella oxytoca sensitive to cipro and zosyn and Ecoli which was resistant to ciprofloxacin but sensitive to Zosyn. Ultrasound of transplanted kidney (done 02/23/15) was unremarkable PLAN - Continue Zosyn (02/22- - Blood cultures NGTD - Urine culture + > 100k E Coli - Sensitivities pending - Continue IVF - Monitor I+Os, fever curve, WBC Flu-like symptoms 02/22/2015 02/28/2015 Overview: Complains of nausea, vomiting and myalgia with sick contacts. Flu A and B negative Symptoms of one week duration. Beyond the time frame to receive tamiflu. PLAN - Influenza A & B - Negative - Metoclopramide for nausea DVT prophylaxis 02/22/2015 02/28/2015 Overview: PLAN - Heparin 5000 units q 12 UTI (urinary tract infection) 06/10/2013 09/28/2013 Post-dural puncture headache 06/10/2013 09/28/2013 Urinary tract infection, E. coli 03/17/2013 09/28/2013 Need for prophylactic immunotherapy 06/13/2011 09/28/2013 Anemia, unspecified 04/11/2009 11/21/19 12 Unspecified disease of white blood cells 06/03/2007 01/13/2011 End stage renal disease 10/16/200509/16 Nephritis and nephropathy, n ot specified as acute or chronic, with other specified pathological lesion in kidney, in diseases classified elsewhere 10/16/2005 09/01/2018 Legionnaires' disease 2012 Overview: during SLE flare, serum antigen +, but urine antigen negative; treated anyway Cough 09/28/2013 Overview: jeanna induced Cystitis 09/01/2018 Overview: x1 summer 2004 (presented with fever) documented as of this encounter (statuses as of 02/23/2024) [facility] Appointment Date:03/11/2023 11:00:00 AM Scheduled Provider: Location:[facility] Appointment Type:US Pelvis Non-OB W/Transvaginal Appointment Date:03/23/2023 10:45:00 AM Scheduled Provider:DILIA MORALES MD Location:[facility] Appointment Type: Acute Future Scheduled Tests Laboratory* Cancer Antigen 125 10/29/22 * Lactate Dehydrogenase 10/29/22 * AFP tumor marker 10/29/22 * hCG, quantitative (AH) 10/29/22 Radiology* US Pelvis Non-OB W/Transvaginal 03/11/23 * US Pelvis Non-OB W/Transvaginal 10/29/22 [facility] Evaluation + Plan note Future Appointments Appointment Date:03/23/2023 10:45:00 AM Scheduled Provider:DILIA MORALES MD Location:[facility] Appointment Type: Acute Future Scheduled Tests Laboratory* Cancer Antigen 125 10/29/22 * Lactate Dehydrogenase 10/29/22 * AFP tumor marker 10/29/22 * hCG, quantitative (AH) 10/29/22 Radiology* US Pelvis Non-OB W/Transvaginal 10/29/22 [facility] Evaluation note* Diagnosis Kidney replaced by transplant Aftercare following organ transplant Therapeutic drug monitoring Encounter for therapeutic drug monitoring Benign essential HTN Essential hypertension, benign Anemia of chronic renal failure, unspecified CKD stage [facility] Anemia of chronic renal failure, unspecified CKD stage- Primary [facility] Diagnosis Anemia of chronic renal failure, unspecified CKD stage- Primary Anemia in stage 4 chronic kidney disease (HCC) [facility] Anemia in stage 4 chronic kidney disease (HCC)- Primary [facility] Diagnosis Anemia of chronic renal failure, unspecified CKD stage- Primary [facility] Diagnosis Kidney replaced by transplant- Primary Immunosuppressive management encounter following kidney transplant Encounter for long-term (current) use of other medications [facility] Diagnosis Malignant neoplasm of uterine adnexa (HCC)- Primary Malignant neoplasm of uterine adnexa, unspecified site Kidney replaced by transplant Immunosuppressive management encounter following kidney transplant Encounter for long-term (current) use of other medications [facility] Diagnosis Anemia in stage 4 chronic kidney disease (HCC)- [facility] Diagnosis Immunosuppressive management encounter following kidney transplant- Primary Encounter for long-term (current) use of other medications [facility] Diagnosis Kidney replaced by transplant Immunosuppressive management encounter following kidney transplant Encounter for long-term (current) use of other medications [facility] Kidney replaced by [facility]- Primary [facility] Diagnosis Kidney replaced by transplant Immunosuppressive management encounter following kidney transplant Encounter for long-term (current) use of other medications [facility] Diagnosis Anemia in stage 4 chronic kidney disease (HCC)- Primary [facility] Diagnosis Anemia in stage 4 chronic kidney disease (HCC)- Primary [facility] Diagnosis Anemia in stage 4 chronic kidney disease (HCC)- Primary Kidney replaced by transplant Immunosuppressive management encounter following kidney transplant Encounter for long-term (current) use of other medications [facility] Diagnosis Kidney replaced by transplant- Primary [facility] Diagnosis Anemia in stage 4 chronic kidney disease (HCC)- Primary Kidney replaced by transplant Anemia of chronic renal failure, unspecified CKD stage Immunosuppressive management encounter following kidney transplant Encounter for long-term (current) use of other medications [facility] Diagnosis Anemia in stage 4 chronic kidney disease (HCC)- Primary [facility] Diagnosis Kidney [facility] by [facility] Diagnosis Diarrhea of presumed infectious origin- Primary [facility] Diagnosis Malignant neoplasm of other specified sites of uterine adnexa (HCC)- Primary Malignant neoplasm of other specified sites of uterine adnexa Kidney replaced by transplant Immunosuppressive management encounter following kidney transplant Encounter for long-term (current) use of other medications [facility] Diagnosis Anemia of chronic renal failure, unspecified CKD stage- Primary [facility] Diagnosis Acute infectious diarrhea- Primary Infectious diarrhea [facility] Diagnosis Malignant neoplasm of other specified sites of uterine adnexa (HCC)- Primary Malignant neoplasm of other specified sites of uterine adnexa Acute infectious diarrhea Infectious diarrhea [facility] Diagnosis Kidney replaced by transplant Immunosuppressive management encounter following kidney transplant Encounter for long-term (current) use of other medications [facility] Diagnosis Sore throat- Primary Acute pharyngitis Viral URI Acute upper respiratory infections of unspecified site [facility] Diagnosis Anemia of chronic renal failure, unspecified CKD stage- Primary Kidney replaced by transplant Immunosuppressive management encounter following kidney transplant Encounter for long-term (current) use of other medications [facility] Diagnosis Anemia of chronic renal failure, unspecified CKD stage- Primary [facility] Diagnosis Anemia in stage 4 chronic kidney disease (HCC)- Primary Kidney replaced by transplant Immunosuppressive management encounter following kidney transplant Encounter for long-term (current) use of other medications [facility] Diagnosis Renal transplant recipient- Primary Clotted dialysis access, initial encounter (HCC) [facility] [place] [facility] Diagnosis Aftercare following organ transplant- Primary Status post kidney transplant Kidney replaced by transplant Therapeutic drug monitoring Encounter for therapeutic drug monitoring Long-term use of immunosuppressant medication Encounter for long-term (current) use of other medications Vitamin D deficiency Unspecified vitamin D deficiency Secondary hypothyroidism Other specified acquired hypothyroidism BK viremia Viremia, unspecified [facility] [place] [facility] Diagnosis Anemia in stage 4 chronic kidney disease (HCC)- Primary Aftercare following organ transplant Status post kidney transplant Kidney replaced by transplant Therapeutic drug monitoring Encounter for therapeutic drug monitoring Long-term use of immunosuppressant medication Encounter for long-term (current) use of other medications Vitamin D deficiency Unspecified vitamin D deficiency Secondary hypothyroidism Other specified acquired hypothyroidism BK viremia Viremia, unspecified [facility] [place] [facility]* Diagnosis Anemia in stage 4 chronic kidney disease (HCC)- Primary [facility] [place] [facility] Diagnosis Kidney replaced by transplant [facility] [place] [facility]* Diagnosis Aftercare following organ transplant Status post kidney transplant Kidney replaced by transplant Therapeutic drug monitoring Encounter for therapeutic drug monitoring Long-term use of immunosuppressant medication Encounter for long-term (current) use of other medications Vitamin D deficiency Unspecified vitamin D deficiency Secondary hypothyroidism Other specified acquired hypothyroidism BK viremia Viremia, unspecified [facility] [place] [facility] Diagnosis Kidney replaced by transplant [facility] Diagnosis Acquired hemolytic anemia, unspecified (HCC)- Primary Acquired hemolytic anemia, unspecified Anemia in stage 4 chronic kidney disease (HCC) Aftercare following organ transplant Status post kidney transplant Kidney replaced by transplant Therapeutic drug monitoring Encounter for therapeutic drug monitoring Long-term use of immunosuppressant medication Encounter for long-term (current) use of other medications Vitamin D deficiency Unspecified vitamin D deficiency Secondary hypothyroidism Other specified acquired hypothyroidism BK viremia Viremia, unspecified [facility] [place] [facility] Diagnosis Acquired hemolytic anemia, unspecified (HCC)- Primary Acquired hemolytic anemia, unspecified [facility] [place] [facility]* Diagnosis Anemia in stage 4 chronic kidney disease (HCC)- Primary [facility] [place] [facility]* Diagnosis Kidney replaced by transplant- Primary Persistent proteinuria Proteinuria Immunosuppressive management encounter following kidney transplant Encounter for long-term (current) use of other medications 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) [facility] [place] [facility]* Diagnosis Screening for genitourinary condition Screening for other and unspecified genitourinary condition [facility] [place] note* Diagnosis Anemia in stage 4 chronic kidney disease (HCC) (HCC) [facility] [place] [facility] Diagnosis Anemia in stage 4 chronic kidney disease (HCC) (HCC)- Primary [facility] [place] [facility] Diagnosis Anemia in stage 4 chronic kidney disease (HCC) (HCC)- Primary [facility] [place] [facility] Diagnosis Anemia in chronic kidney disease, unspecified CKD stage- Primary [facility] [place] [facility]* Diagnosis Rhinosinusitis- Primary Unspecified sinusitis (chronic) documented [facility] this [facility] [place] [facility]* Diagnosis Aftercare following organ transplant Status post kidney transplant Kidney replaced by transplant Therapeutic drug monitoring Encounter for therapeutic drug monitoring Long-term use of immunosuppressant medication Encounter for long-term (current) use of other medications Vitamin D deficiency Unspecified vitamin D deficiency Secondary hypothyroidism Other specified acquired hypothyroidism BK viremia Viremia, unspecified documented [facility] [place] [facility]* Diagnosis Anemia in chronic kidney disease, unspecified CKD stage- Primary [facility] [place] [facility] Diagnosis Anemia in stage 4 chronic kidney disease (HCC) (HCC)- Primary [facility] [place] [facility]* Diagnosis Acquired hemolytic anemia, unspecified (HCC)- Primary Acquired hemolytic anemia, unspecified Anemia in stage 4 chronic kidney disease (HCC) (HCC) Aftercare following organ transplant Status post kidney transplant Kidney replaced by transplant Therapeutic drug monitoring Encounter for therapeutic drug monitoring Long-term use of immunosuppressant medication Encounter for long-term (current) use of other medications Vitamin D deficiency Unspecified vitamin D deficiency Secondary hypothyroidism Other specified acquired hypothyroidism BK viremia Viremia, unspecified [facility] [place] [facility] Diagnosis Anemia in stage 4 chronic kidney disease (HCC) (HCC)- Primary [facility] [place] [facility]* Diagnosis Anemia in stage 4 chronic kidney disease (HCC) (HCC)- Primary Aftercare following organ transplant Status post kidney transplant Kidney replaced by transplant Therapeutic drug monitoring Encounter for therapeutic drug monitoring Long-term use of immunosuppressant medication Encounter for long-term (current) use of other medications Vitamin D deficiency Unspecified vitamin D deficiency Secondary hypothyroidism Other specified acquired hypothyroidism BK viremia Viremia, unspecified [facility] [place] [facility] Diagnosis Anemia in chronic kidney disease, unspecified CKD stage- Primary [facility] [place] [facility]* Diagnosis Aftercare following organ transplant Status post kidney transplant Kidney replaced by transplant Therapeutic drug monitoring Encounter for therapeutic drug monitoring Long-term use of immunosuppressant medication Encounter for long-term (current) use of other medications Vitamin D deficiency Unspecified vitamin D deficiency Secondary hypothyroidism Other specified acquired hypothyroidism BK viremia Viremia, unspecified Anemia in stage 4 chronic kidney disease (HCC) (HCC) [facility] [place] [facility] Diagnosis Anemia in stage 4 chronic kidney disease (HCC) (HCC)- Primary [facility] Diagnosis Numerous skin moles- Primary [facility] this [facility] [place] [facility]* Diagnosis Aftercare following organ transplant Status post kidney transplant Kidney replaced by transplant Therapeutic drug monitoring Encounter for therapeutic drug monitoring Long-term use of immunosuppressant medication Encounter for long-term (current) use of other medications Vitamin D deficiency Unspecified vitamin D deficiency Secondary hypothyroidism Other specified acquired hypothyroidism BK viremia Viremia, unspecified [facility] [place] [facility]* Diagnosis Anemia in stage 4 chronic kidney disease (HCC) (HCC)- Primary [facility] Diagnosis Aftercare following organ transplant Status post kidney transplant Kidney replaced by transplant Therapeutic drug monitoring Encounter for therapeutic drug monitoring Long-term use of immunosuppressant medication Encounter for long-term (current) use of other medications Vitamin D deficiency Unspecified vitamin D deficiency Secondary hypothyroidism Other specified acquired hypothyroidism BK viremia Viremia, unspecified [facility] [place] [facility]* Diagnosis Chronic kidney disease, stage 4 (severe) (HCC)- Primary Anemia in stage 4 chronic kidney disease (HCC) (HCC) documented [facility] this [facility] [place] [facility]* Diagnosis Chronic kidney disease, stage 4 (severe) (HCC)- Primary Other specified hypothyroidism Aftercare following organ transplant Status post kidney transplant Kidney replaced by transplant Therapeutic drug monitoring Encounter for therapeutic drug monitoring Long-term use of immunosuppressant medication Encounter for long-term (current) use of other medications Vitamin D deficiency Unspecified vitamin D deficiency Secondary hypothyroidism Other specified acquired hypothyroidism BK viremia Viremia, unspecified [facility] Diagnosis Anemia in chronic kidney disease, unspecified CKD stage- Primary Chronic kidney disease, stage 4 (severe) (HCC) [facility] Diagnosis Chronic kidney disease, stage 4 (severe) (HCC)- Primary [facility] Diagnosis Chronic kidney disease, stage 4 (severe) (HCC)- Primary Aftercare following organ transplant Status post kidney transplant Kidney replaced by transplant Therapeutic drug monitoring Encounter for therapeutic drug monitoring Long-term use of immunosuppressant medication Encounter for long-term (current) use of other medications Vitamin D deficiency Unspecified vitamin D deficiency Secondary hypothyroidism Other specified acquired hypothyroidism BK viremia Viremia, unspecified [facility] Diagnosis Kidney replaced by transplant- Primary Immunosuppressive management encounter following kidney transplant Encounter for long-term (current) use of other medications [facility] Diagnosis Chronic kidney disease, stage 4 (severe) (HCC)- Primary Anemia in stage 4 chronic kidney disease (HCC) (HCC) Kidney replaced by transplant Immunosuppressive management encounter following kidney transplant Encounter for long-term (current) use of other medications [facility] Diagnosis Anemia in chronic kidney disease, unspecified CKD stage- Primary Chronic kidney disease, stage 4 (severe) (HCC) [facility] Diagnosis Anemia in stage 4 chronic kidney disease (HCC) (HCC) Kidney replaced by transplant Immunosuppressive management encounter following kidney transplant Encounter for long-term (current) use of other medications Hyperuricemia Other abnormal blood chemistry Gout with manifestations Gout with other specified manifestations [facility] Diagnosis Anemia in chronic kidney disease, unspecified CKD stage- Primary Chronic kidney disease, stage 4 (severe) (HCC) [facility] Diagnosis Anemia in stage 4 chronic kidney disease (HCC) (HCC)- Primary [facility] Diagnosis Hyperuricemia- Primary Other abnormal blood chemistry Gout with manifestations Gout with other specified manifestations Kidney replaced by transplant Immunosuppressive management encounter following kidney transplant Encounter for long-term (current) use of other medications [facility] Diagnosis Screening for genitourinary condition Screening for other and unspecified genitourinary condition [facility]* Diagnosis Anemia in stage 4 chronic kidney disease (HCC) (HCC)- Primary [facility] [place] [facility]* Diagnosis Kidney replaced by transplant Immunosuppressive management encounter following kidney transplant Encounter for long-term (current) use of other medications Anemia in stage 4 chronic kidney disease (HCC) (HCC) [facility] [place] [facility]* Diagnosis Anemia in stage 4 chronic kidney disease (HCC) (HCC) Kidney replaced by transplant Immunosuppressive management encounter following kidney transplant Encounter for long-term (current) use of other medications [facility] [place] [facility]* Diagnosis Anemia in chronic kidney disease, unspecified CKD stage- Primary Chronic kidney disease, stage 4 (severe) (HCC) [facility] [place] [facility]* Diagnosis Kidney replaced by transplant- Primary documented in this encounter [facility] [place] [facility]* Diagnosis End stage renal disease (HCC)- Primary End stage renal disease Kidney replaced by transplant Immunosuppressive management encounter following kidney transplant Encounter for long-term (current) use of other medications [facility] [place] [facility]* Diagnosis Anemia in stage 4 chronic kidney disease (HCC) (HCC)- Primary documented in this encounter [facility] [place] [facility]* Diagnosis Anemia in stage 4 chronic kidney disease (HCC) (HCC)- Primary [facility] [place] [facility]* Diagnosis Kidney replaced by transplant Immunosuppressive management encounter following kidney transplant Encounter for long-term (current) use of other medications [facility] [place] [facility]* Diagnosis Viral URI with cough- Primary Acute upper respiratory infections of unspecified site [facility] [place] [facility]* Diagnosis Anemia in stage 4 chronic kidney disease (HCC) (HCC)- Primary Encounter for screening colonoscopy Special screening for malignant neoplasms, colon documented [facility] this [facility] [place] [facility]* Diagnosis Anemia in stage 4 chronic kidney disease (HCC) (HCC) Kidney replaced by transplant Immunosuppressive management encounter following kidney transplant Encounter for long-term (current) use of other medications documented [facility] this encounter [facility] [place] [facility]* Diagnosis Screen for colon cancer- Primary Special screening for malignant neoplasms, colon Kidney replaced by transplant [facility] Diagnosis Anemia in stage 4 chronic kidney disease (HCC) (HCC)- Primary documented in this encounter [facility] Narrative No data available for this section [facility] Discharge instructions No data available for this section [facility] Progress note No data available for this section [facility] Reason for referral (narrative)* Outpatient Procedure (Routine) - Authorized Specialty Diagnoses / Procedures Referred By Contac t Referred To Contact [facility] Diagnoses Screen for colon cancer Procedures COLONOSCOPY SCREENING COLONOSCOPY FLX DX W/COLLJ SPEC WHEN Clementina Andino APRN.[employer] [address] [facility] [place] [place] [address] [facility] [address] [place] [address] Referral ID Status Reason Start Date Expiration Date Visits Requested Visits Authorized [id number] Authorized Auto-Generat ed Referral 09/06/2025 1 1 [facility] Summary Purpose Family History No Family History Records FoundNo Family History Records FoundNo Family History Records FoundNo Family History Records FoundNo Family History Records Found Advance Directives No Advanced Directives Records FoundDocuments on File Type Date Recorded 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 [employer] 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 Advance Directive(s) Advance Directive(s) 02/11/2020 12:15 PM Advance Directive(s) 01/14/2019 10:57 PM Advance Directive(s) 01/11/2019 5:46 PM Advance Directive(s) 09/17/2018 1:07 PM Latest Code Status on File Code Status Date Activated Date Inactivated Comments Full Code 02/11/2020 8:15 AM 02/12/2020 4:06 PM Full Code Order Discussed With: Patient Latest Code Status on File Code Status Date Activated Date Inactivated Comments Full Code 02/11/2020 8:15 AM 02/12/2020 4:06 PM Latest Code Status on File Code Status Date Activated Date Inactivated Comments Full Code 02/11/2020 8:15 AM 02/12/2020 4:06 PM Question Answer Comments Full Code Order Discussed With: Patient Latest Code Status on File Code Status Date Activated Date Inactivated Comments Full Code 02/11/2020 8:15 AM 02/12/2020 4:06 PM Question Answer Comments Full Code Order Discussed With: Patient Date Activated Date Inactivated Comments 02/11/2020 8:15 AM 02/12/2020 4:06 PM Question Answer Comments Full Code Order Discussed With: Patient Date Activated Date Inactivated Comments 02/11/2020 8:15 AM 02/12/2020 4:06 PM Question Answer Comments Full Code Order Discussed With: Patient Reason for Referral Specialty Diagnoses / Procedures Referred By Contac t Referred To Contact Sandeep Ramsey DO [address] [facility] [address] [place] [address] Referral ID Status Reason Start Date Expiration Date V isits Requested Visits Authorized [id number] Pending Review 1 1 Specialty Diagnoses / Procedures Referred By Contac t Referred To Contact General Surgery Diagnoses Anemia in stage 4 chronic kidney disease (HCC) (HCC) Encounter for screening colonoscopy Procedures CONSULT TO GENERAL SURGERY OFFICE/OUTPATIENT [facility] 60 MINUTES Schuyler Abrams DO [address] [place] [address] Referral ID Status Reason Start Date Expiration Date Visits Requested Visits Authorized [id number] Authorized PCP Requested Referral 09/01/2025 1 1 Health Concerns Infection Onset Date Last Indicated Resolved Time C. difficile 10/07/2022 10/07/2022 Infection Onset Date Last Indicated Resolved Time C. difficile 10/07/2022 10/07/2022 COVID-19 Rule-Out 12/11/2022 12/11/2022 Infection Onset Date Last Indicated Resolved Time C. difficile 10/07/2022 10/07/2022 Additional Source Comments INFORMATION SOURCE (unrecogn ized section and content) DATE CREATED AUTHOR 12/28/2018 Josselyn Mcguireit al DATE CREATED AUTHOR AUTHOR'S ORGANIZ ATION 03/29/2021 [facility] ([place]) DATE CREATED AUTHOR AUTHOR'S ORGANIZ ATION 03/12/2023 [facility] ([place]) DATE CREATED AUTHOR AUTHOR'S ORGANIZ ATION 06/04/2023 [facility] DATE CREATED AUTHOR AUTHOR'S ORGANIZ ATION 09/08/2024 [facility] Source Comments (unrecognize d section and content) In the event this informatio n is protected by the Federal Confidentiality of Alcohol and Drug Abuse Patient Records regulations: The Federal rules restrict any use of the information to criminally investigate or prosecute any alcohol or drug abuse patient.[facility] event this information is protected by the Federal Confidentiality of Alcohol and Drug Abuse Patient Records regulations: The Federal rules restrict any use of the information to criminally investigate or prosecute any alcohol or drug abuse patient.[facility] the event this information is protected by the Federal Confidentiality of Alcohol and Drug Abuse Patient Records regulations: The Federal rules restrict any use of the information to criminally investigate or prosecute any alcohol or drug abuse patient.[facility] the event this information is protected by the Federal Confidentiality of Alcohol and Drug Abuse Patient Records regulations: The Federal rules restrict any use of the information to criminally investigate or prosecute any alcohol or drug abuse patient.[facility] the event this information is protected by the Federal Confidentiality of Alcohol and Drug Abuse Patient Records regulations: The Federal rules restrict any use of the information to criminally investigate or prosecute any alcohol or drug abuse patient.[facility] the event this information is protected by the Federal Confidentiality of Alcohol and Drug Abuse Patient Records regulations: The Federal rules restrict any use of the information to criminally investigate or prosecute any alcohol or drug abuse patient.[facility] the event this information is protected by the Federal Confidentiality of Alcohol and Drug Abuse Patient Records regulations: The Federal rules restrict any use of the information to criminally investigate or prosecute any alcohol or drug abuse patient.[facility] the event this information is protected by the Federal Confidentiality of Alcohol and Drug Abuse Patient Records regulations: The Federal rules restrict any use of the information to criminally investigate or prosecute any alcohol or drug abuse patient.[facility] the event this information is protected by the Federal Confidentiality of Alcohol and Drug Abuse Patient Records regulations: The Federal rules restrict any use of the information to criminally investigate or prosecute any alcohol or drug abuse patient.[facility] the event this information is protected by the Federal Confidentiality of Alcohol and Drug Abuse Patient Records regulations: The Federal rules restrict any use of the information to criminally investigate or prosecute any alcohol or drug abuse patient.[facility] the event this information is protected by the Federal Confidentiality of Alcohol and Drug Abuse Patient Records regulations: The Federal rules restrict any use of the information to criminally investigate or prosecute any alcohol or drug abuse patient.[facility] the event this information is protected by the Federal Confidentiality of Alcohol and Drug Abuse Patient Records regulations: The Federal rules restrict any use of the information to criminally investigate or prosecute any alcohol or drug abuse patient.[facility] the event this information is protected by the Federal Confidentiality of Alcohol and Drug Abuse Patient Records regulations: The Federal rules restrict any use of the information to criminally investigate or prosecute any alcohol or drug abuse patient.[facility] the event this information is protected by the Federal Confidentiality of Alcohol and Drug Abuse Patient Records regulations: The Federal rules restrict any use of the information to criminally investigate or prosecute any alcohol or drug abuse patient.[facility] the event this information is protected by the Federal Confidentiality of Alcohol and Drug Abuse Patient Records regulations: The Federal rules restrict any use of the information to criminally investigate or prosecute any alcohol or drug abuse patient.[facility] the event this information is protected by the Federal Confidentiality of Alcohol and Drug Abuse Patient Records regulations: The Federal rules restrict any use of the information to criminally investigate or prosecute any alcohol or drug abuse patient.[facility] the event this information is protected by the Federal Confidentiality of Alcohol and Drug Abuse Patient Records regulations: The Federal rules restrict any use of the information to criminally investigate or prosecute any alcohol or drug abuse patient.[facility] the event this information is protected by the Federal Confidentiality of Alcohol and Drug Abuse Patient Records regulations: The Federal rules restrict any use of the information to criminally investigate or prosecute any alcohol or drug abuse patient.[facility] the event this information is protected by the Federal Confidentiality of Alcohol and Drug Abuse Patient Records regulations: The Federal rules restrict any use of the information to criminally investigate or prosecute any alcohol or drug abuse patient.[facility] the event this information is protected by the Federal Confidentiality of Alcohol and Drug Abuse Patient Records regulations: The Federal rules restrict any use of the information to criminally investigate or prosecute any alcohol or drug abuse patient.[facility] the event this information is protected by the Federal Confidentiality of Alcohol and Drug Abuse Patient Records regulations: The Federal rules restrict any use of the information to criminally investigate or prosecute any alcohol or drug abuse patient.[facility] the event this information is protected by the Federal Confidentiality of Alcohol and Drug Abuse Patient Records regulations: The Federal rules restrict any use of the information to criminally investigate or prosecute any alcohol or drug abuse patient.[facility] the event this information is protected by the Federal Confidentiality of Alcohol and Drug Abuse Patient Records regulations: The Federal rules restrict any use of the information to criminally investigate or prosecute any alcohol or drug abuse patient.[facility] the event this information is protected by the Federal Confidentiality of Alcohol and Drug Abuse Patient Records regulations: The Federal rules restrict any use of the information to criminally investigate or prosecute any alcohol or drug abuse patient.[facility] the event this information is protected by the Federal Confidentiality of Alcohol and Drug Abuse Patient Records regulations: The Federal rules restrict any use of the information to criminally investigate or prosecute any alcohol or drug abuse patient.[facility] [place]In the event this information is protected by the Federal Confidentiality of Alcohol and Drug Abuse Patient Records regulations: The Federal rules restrict any use of the information to criminally investigate or prosecute any alcohol or drug abuse patient.[facility] [place]In the event this information is protected by the Federal Confidentiality of Alcohol and Drug Abuse Patient Records regulations: The Federal rules restrict any use of the information to criminally investigate or prosecute any alcohol or drug abuse patient.[facility] [place]In the event this information is protected by the Federal Confidentiality of Alcohol and Drug Abuse Patient Records regulations: The Federal rules restrict any use of the information to criminally investigate or prosecute any alcohol or drug abuse patient.[facility] [place]In the event this information is protected by the Federal Confidentiality of Alcohol and Drug Abuse Patient Records regulations: The Federal rules restrict any use of the information to criminally investigate or prosecute any alcohol or drug abuse patient.[facility] [place]In the event this information is protected by the Federal Confidentiality of Alcohol and Drug Abuse Patient Records regulations: The Federal rules restrict any use of the information to criminally investigate or prosecute any alcohol or drug abuse patient.[facility] [place]In the event this information is protected by the Federal Confidentiality of Alcohol and Drug Abuse Patient Records regulations: The Federal rules restrict any use of the information to criminally investigate or prosecute any alcohol or drug abuse patient.[facility] [place]In the event this information is protected by the Federal Confidentiality of Alcohol and Drug Abuse Patient Records regulations: The Federal rules restrict any use of the information to criminally investigate or prosecute any alcohol or drug abuse patient.[facility] [place]In the event this information is protected by the Federal Confidentiality of Alcohol and Drug Abuse Patient Records regulations: The Federal rules restrict any use of the information to criminally investigate or prosecute any alcohol or drug abuse patient.[facility] [place]In the event this information is protected by the Federal Confidentiality of Alcohol and Drug Abuse Patient Records regulations: The Federal rules restrict any use of the information to criminally investigate or prosecute any alcohol or drug abuse patient.[facility] [place]In the event this information is protected by the Federal Confidentiality of Alcohol and Drug Abuse Patient Records regulations: The Federal rules restrict any use of the information to criminally investigate or prosecute any alcohol or drug abuse patient.[facility] [place]In the event this information is protected by the Federal Confidentiality of Alcohol and Drug Abuse Patient Records regulations: The Federal rules restrict any use of the information to criminally investigate or prosecute any alcohol or drug abuse patient.[facility] [place]In the event this information is protected by the Federal Confidentiality of Alcohol and Drug Abuse Patient Records regulations: The Federal rules restrict any use of the information to criminally investigate or prosecute any alcohol or drug abuse patient.[facility] [place]In the event this information is protected by the Federal Confidentiality of Alcohol and Drug Abuse Patient Records regulations: The Federal rules restrict any use of the information to criminally investigate or prosecute any alcohol or drug abuse patient.[facility] [place]In the event this information is protected by the Federal Confidentiality of Alcohol and Drug Abuse Patient Records regulations: The Federal rules restrict any use of the information to criminally investigate or prosecute any alcohol or drug abuse patient.[facility] [place]In the event this information is protected by the Federal Confidentiality of Alcohol and Drug Abuse Patient Records regulations: The Federal rules restrict any use of the information to criminally investigate or prosecute any alcohol or drug abuse patient.[facility] [place]In the event this information is protected by the Federal Confidentiality of Alcohol and Drug Abuse Patient Records regulations: The Federal rules restrict any use of the information to criminally investigate or prosecute any alcohol or drug abuse patient.[facility] [place]In the event this information is protected by the Federal Confidentiality of Alcohol and Drug Abuse Patient Records regulations: The Federal rules restrict any use of the information to criminally investigate or prosecute any alcohol or drug abuse patient.[facility] [place]In the event this information is protected by the Federal Confidentiality of Alcohol and Drug Abuse Patient Records regulations: The Federal rules restrict any use of the information to criminally investigate or prosecute any alcohol or drug abuse patient.[facility] [place]In the event this information is protected by the Federal Confidentiality of Alcohol and Drug Abuse Patient Records regulations: The Federal rules restrict any use of the information to criminally investigate or prosecute any alcohol or drug abuse patient.[facility] [place]In the event this information is protected by the Federal Confidentiality of Alcohol and Drug Abuse Patient Records regulations: The Federal rules restrict any use of the information to criminally investigate or prosecute any alcohol or drug abuse patient.[facility] [place]In the event this information is protected by the Federal Confidentiality of Alcohol and Drug Abuse Patient Records regulations: The Federal rules restrict any use of the information to criminally investigate or prosecute any alcohol or drug abuse patient.[facility] [place]In the event this information is protected by the Federal Confidentiality of Alcohol and Drug Abuse Patient Records regulations: The Federal rules restrict any use of the information to criminally investigate or prosecute any alcohol or drug abuse patient.[facility] [place]In the event this information is protected by the Federal Confidentiality of Alcohol and Drug Abuse Patient Records regulations: The Federal rules restrict any use of the information to criminally investigate or prosecute any alcohol or drug abuse patient.[facility] [place]In the event this information is protected by the Federal Confidentiality of Alcohol and Drug Abuse Patient Records regulations: The Federal rules restrict any use of the information to criminally investigate or prosecute any alcohol or drug abuse patient.[facility] [place]In the event this information is protected by the Federal Confidentiality of Alcohol and Drug Abuse Patient Records regulations: The Federal rules restrict any use of the information to criminally investigate or prosecute any alcohol or drug abuse patient.[facility] [place]In the event this information is protected by the Federal Confidentiality of Alcohol and Drug Abuse Patient Records regulations: The Federal rules restrict any use of the information to criminally investigate or prosecute any alcohol or drug abuse patient.[facility] [place]In the event this information is protected by the Federal Confidentiality of Alcohol and Drug Abuse Patient Records regulations: The Federal rules restrict any use of the information to criminally investigate or prosecute any alcohol or drug abuse patient.[facility] [place]In the event this information is protected by the Federal Confidentiality of Alcohol and Drug Abuse Patient Records regulations: The Federal rules restrict any use of the information to criminally investigate or prosecute any alcohol or drug abuse patient.[facility] [place]In the event this information is protected by the Federal Confidentiality of Alcohol and Drug Abuse Patient Records regulations: The Federal rules restrict any use of the information to criminally investigate or prosecute any alcohol or drug abuse patient.[facility] [place]In the event this information is protected by the Federal Confidentiality of Alcohol and Drug Abuse Patient Records regulations: The Federal rules restrict any use of the information to criminally investigate or prosecute any alcohol or drug abuse patient.[facility] [place]In the event this information is protected by the Federal Confidentiality of Alcohol and Drug Abuse Patient Records regulations: The Federal rules restrict any use of the information to criminally investigate or prosecute any alcohol or drug abuse patient.[facility] [place]In the event this information is protected by the Federal Confidentiality of Alcohol and Drug Abuse Patient Records regulations: The Federal rules restrict any use of the information to criminally investigate or prosecute any alcohol or drug abuse patient.[facility] [place]In the event this information is protected by the Federal Confidentiality of Alcohol and Drug Abuse Patient Records regulations: The Federal rules restrict any use of the information to criminally investigate or prosecute any alcohol or drug abuse patient.[facility] [place]In the event this information is protected by the Federal Confidentiality of Alcohol and Drug Abuse Patient Records regulations: The Federal rules restrict any use of the information to criminally investigate or prosecute any alcohol or drug abuse patient.[facility] [place]In the event this information is protected by the Federal Confidentiality of Alcohol and Drug Abuse Patient Records regulations: The Federal rules restrict any use of the information to criminally investigate or prosecute any alcohol or drug abuse patient.[facility] [place]In the event this information is protected by the Federal Confidentiality of Alcohol and Drug Abuse Patient Records regulations: The Federal rules restrict any use of the information to criminally investigate or prosecute any alcohol or drug abuse patient.[facility] [place]In the event this information is protected by the Federal Confidentiality of Alcohol and Drug Abuse Patient Records regulations: The Federal rules restrict any use of the information to criminally investigate or prosecute any alcohol or drug abuse patient.[facility] [place]In the event this information is protected by the Federal Confidentiality of Alcohol and Drug Abuse Patient Records regulations: The Federal rules restrict any use of the information to criminally investigate or prosecute any alcohol or drug abuse patient.[facility] [place]In the event this information is protected by the Federal Confidentiality of Alcohol and Drug Abuse Patient Records regulations: The Federal rules restrict any use of the information to criminally investigate or prosecute any alcohol or drug abuse patient.[facility] [place]In the event this information is protected by the Federal Confidentiality of Alcohol and Drug Abuse Patient Records regulations: The Federal rules restrict any use of the information to criminally investigate or prosecute any alcohol or drug abuse patient.[facility] [place]In the event this information is protected by the Federal Confidentiality of Alcohol and Drug Abuse Patient Records regulations: The Federal rules restrict any use of the information to criminally investigate or prosecute any alcohol or drug abuse patient.[facility] [place]In the event this information is protected by the Federal Confidentiality of Alcohol and Drug Abuse Patient Records regulations: The Federal rules restrict any use of the information to criminally investigate or prosecute any alcohol or drug abuse patient.[facility] [place]In the event this information is protected by the Federal Confidentiality of Alcohol and Drug Abuse Patient Records regulations: The Federal rules restrict any use of the information to criminally investigate or prosecute any alcohol or drug abuse patient.[facility] [place]In the event this information is protected by the Federal Confidentiality of Alcohol and Drug Abuse Patient Records regulations: The Federal rules restrict any use of the information to criminally investigate or prosecute any alcohol or drug abuse patient.[facility] [place]In the event this information is protected by the Federal Confidentiality of Alcohol and Drug Abuse Patient Records regulations: The Federal rules restrict any use of the information to criminally investigate or prosecute any alcohol or drug abuse patient.[facility] the event this information is protected by the Federal Confidentiality of Alcohol and Drug Abuse Patient Records regulations: The Federal rules restrict any use of the information to criminally investigate or prosecute any alcohol or drug abuse patient.[facility] [place]In the event this information is protected by the Federal Confidentiality of Alcohol and Drug Abuse Patient Records regulations: The Federal rules restrict any use of the information to criminally investigate or prosecute any alcohol or drug abuse patient.[facility] [place]In the event this information is protected by the Federal Confidentiality of Alcohol and Drug Abuse Patient Records regulations: The Federal rules restrict any use of the information to criminally investigate or prosecute any alcohol or drug abuse patient.[facility]In the event this information is protected by the Federal Confidentiality of Alcohol and Drug Abuse Patient Records regulations: The Federal rules restrict any use of the information to criminally investigate or prosecute any alcohol or drug abuse patient.[facility] [place]In the event this information is protected by the Federal Confidentiality of Alcohol and Drug Abuse Patient Records regulations: The Federal rules restrict any use of the information to criminally investigate or prosecute any alcohol or drug abuse patient.[facility] [place]In the event this information is protected by the Federal Confidentiality of Alcohol and Drug Abuse Patient Records regulations: The Federal rules restrict any use of the information to criminally investigate or prosecute any alcohol or drug abuse patient.[facility] [place]In the event this information is protected by the Federal Confidentiality of Alcohol and Drug Abuse Patient Records regulations: The Federal rules restrict any use of the information to criminally investigate or prosecute any alcohol or drug abuse patient.[facility] [place]In the event this information is protected by the Federal Confidentiality of Alcohol and Drug Abuse Patient Records regulations: The Federal rules restrict any use of the information to criminally investigate or prosecute any alcohol or drug abuse patient.[facility] [place]In the event this information is protected by the Federal Confidentiality of Alcohol and Drug Abuse Patient Records regulations: The Federal rules restrict any use of the information to criminally investigate or prosecute any alcohol or drug abuse patient.[facility] [place]In the event this information is protected by the Federal Confidentiality of Alcohol and Drug Abuse Patient Records regulations: The Federal rules restrict any use of the information to criminally investigate or prosecute any alcohol or drug abuse patient.[facility] [place]In the event this information is protected by the Federal Confidentiality of Alcohol and Drug Abuse Patient Records regulations: The Federal rules restrict any use of the information to criminally investigate or prosecute any alcohol or drug abuse patient.[facility] [place]In the event this information is protected by the Federal Confidentiality of Alcohol and Drug Abuse Patient Records regulations: The Federal rules restrict any use of the information to criminally investigate or prosecute any alcohol or drug abuse patient.[facility] [place]In the event this information is protected by the Federal Confidentiality of Alcohol and Drug Abuse Patient Records regulations: The Federal rules restrict any use of the information to criminally investigate or prosecute any alcohol or drug abuse patient.[facility] [place]In the event this information is protected by the Federal Confidentiality of Alcohol and Drug Abuse Patient Records regulations: The Federal rules restrict any use of the information to criminally investigate or prosecute any alcohol or drug abuse patient.[facility] [place]In the event this information is protected by the Federal Confidentiality of Alcohol and Drug Abuse Patient Records regulations: The Federal rules restrict any use of the information to criminally investigate or prosecute any alcohol or drug abuse patient.[facility] [place]In the event this information is protected by the Federal Confidentiality of Alcohol and Drug Abuse Patient Records regulations: The Federal rules restrict any use of the information to criminally investigate or prosecute any alcohol or drug abuse patient.[facility] [place]In the event this information is protected by the Federal Confidentiality of Alcohol and Drug Abuse Patient Records regulations: The Federal rules restrict any use of the information to criminally investigate or prosecute any alcohol or drug abuse patient.[facility] [place]In the event this information is protected by the Federal Confidentiality of Alcohol and Drug Abuse Patient Records regulations: The Federal rules restrict any use of the information to criminally investigate or prosecute any alcohol or drug abuse patient.[facility] [place]In the event this information is protected by the Federal Confidentiality of Alcohol and Drug Abuse Patient Records regulations: The Federal rules restrict any use of the information to criminally investigate or prosecute any alcohol or drug abuse patient.[facility] [place]In the event this information is protected by the Federal Confidentiality of Alcohol and Drug Abuse Patient Records regulations: The Federal rules restrict any use of the information to criminally investigate or prosecute any alcohol or drug abuse patient.[facility] [place]In the event this information is protected by the Federal Confidentiality of Alcohol and Drug Abuse Patient Records regulations: The Federal rules restrict any use of the information to criminally investigate or prosecute any alcohol or drug abuse patient.[facility] [place]In the event this information is protected by the Federal Confidentiality of Alcohol and Drug Abuse Patient Records regulations: The Federal rules restrict any use of the information to criminally investigate or prosecute any alcohol or drug abuse patient.[facility] [place]In the event this information is protected by the Federal Confidentiality of Alcohol and Drug Abuse Patient Records regulations: The Federal rules restrict any use of the information to criminally investigate or prosecute any alcohol or drug abuse patient.[facility] [place]In the event this information is protected by the Federal Confidentiality of Alcohol and Drug Abuse Patient Records regulations: The Federal rules restrict any use of the information to criminally investigate or prosecute any alcohol or drug abuse patient.[facility] [place]In the event this information is protected by the Federal Confidentiality of Alcohol and Drug Abuse Patient Records regulations: The Federal rules restrict any use of the information to criminally investigate or prosecute any alcohol or drug abuse patient.[facility] [place]In the event this information is protected by the Federal Confidentiality of Alcohol and Drug Abuse Patient Records regulations: The Federal rules restrict any use of the information to criminally investigate or prosecute any alcohol or drug abuse patient.[facility] [place]In the event this information is protected by the Federal Confidentiality of Alcohol and Drug Abuse Patient Records regulations: The Federal rules restrict any use of the information to criminally investigate or prosecute any alcohol or drug abuse patient.[facility] [place]In the event this information is protected by the Federal Confidentiality of Alcohol and Drug Abuse Patient Records regulations: The Federal rules restrict any use of the information to criminally investigate or prosecute any alcohol or drug abuse patient.[facility] [place]In the event this information is protected by the Federal Confidentiality of Alcohol and Drug Abuse Patient Records regulations: The Federal rules restrict any use of the information to criminally investigate or prosecute any alcohol or drug abuse patient.[facility] [place]In the event this information is protected by the Federal Confidentiality of Alcohol and Drug Abuse Patient Records regulations: The Federal rules restrict any use of the information to criminally investigate or prosecute any alcohol or drug abuse patient.[facility] [place]In the event this information is protected by the Federal Confidentiality of Alcohol and Drug Abuse Patient Records regulations: The Federal rules restrict any use of the information to criminally investigate or prosecute any alcohol or drug abuse patient.[facility] [place]In the event this information is protected by the Federal Confidentiality of Alcohol and Drug Abuse Patient Records regulations: The Federal rules restrict any use of the information to criminally investigate or prosecute any alcohol or drug abuse patient.[facility] [place]In the event this information is protected by the Federal Confidentiality of Alcohol and Drug Abuse Patient Records regulations: The Federal rules restrict any use of the information to criminally investigate or prosecute any alcohol or drug abuse patient.[facility] [place]In the event this information is protected by the Federal Confidentiality of Alcohol and Drug Abuse Patient Records regulations: The Federal rules restrict any use of the information to criminally investigate or prosecute any alcohol or drug abuse patient.[facility] CincinnatiIn the event this information is protected by the Federal Confidentiality of Alcohol and Drug Abuse Patient Records regulations: The Federal rules restrict any use of the information to criminally investigate or prosecute any alcohol or drug abuse patient.[facility] the event this information is protected by the Federal Confidentiality of Alcohol and Drug Abuse Patient Records regulations: The Federal rules restrict any use of the information to criminally investigate or prosecute any alcohol or drug abuse patient.[facility] the event this information is protected by the Federal Confidentiality of Alcohol and Drug Abuse Patient Records regulations: The Federal rules restrict any use of the information to criminally investigate or prosecute any alcohol or drug abuse patient.[facility] the event this information is protected by the Federal Confidentiality of Alcohol and Drug Abuse Patient Records regulations: The Federal rules restrict any use of the information to criminally investigate or prosecute any alcohol or drug abuse patient.[facility] the event this information is protected by the Federal Confidentiality of Alcohol and Drug Abuse Patient Records regulations: The Federal rules restrict any use of the information to criminally investigate or prosecute any alcohol or drug abuse patient.[facility] the event this information is protected by the Federal Confidentiality of Alcohol and Drug Abuse Patient Records regulations: The Federal rules restrict any use of the information to criminally investigate or prosecute any alcohol or drug abuse patient.[facility] Reason for Visit (unrecogniz ed section and content) Reason Comments Imm/Inj Specialty Diagnoses / Procedures Referred By Contac t Referred To Contact HEMATOLOGY/ONCOLOGY Diagnoses Anemia in chronic renal disease Procedures Aranesp injection Schuyler Abrams, [address] [place] [address] [facility] [address] [place] [address] Referral ID Status Reason Start Date Expiration Date V isits Requested Visits Authorized [id number] Pending Review 01/11/2024 04/10/2024 12 12 Reason Comments Blood Draw (CVAD) Reason Comments Refill Request Reason Comments Appointment Reason Comments Med Change Request Reason Onset Date Comments Refill Request 07/11/2022 Reason Onset Date Comments Refill Request 07/15/2022 Reason Comments Follow Up Reason Onset Date Comments Refill Request 09/01/2022 Reason Comments Medication Follow-up Reason Comments Sore Throat X 1 day Reason Onset Date Comments Refill Request 02/13/2023 Reason Comments Chronic Kidney Disease [facility] IS HERE [facility] THROMBOSED DIALYSIS ACCESS. HERE FOR EVALUATION Reason Comments Patient Update Missed appointment Reason Comments Rx Refills Reason Onset Date Comments Refill Request 10/22/2023 Reason Comments Follow Up Reason Comments Nasal Congestion drainage, nasal pres sure, headache, cough x dec off and on Reason Comments Port Flush Specialty Diagnoses / Procedures Referred By Contac t Referred To Contact HEMATOLOGY/ONCOLOGY Diagnoses Anemia in chronic renal disease Procedures Aranesp injection Schuyler Abrams, DO [address] [place] [address] [facility] [address] [place] [address] Reason Comments Derm Problem Spot on lower back L eft side, was told about this and told to get it looked at Reason Comments Established Patient Referral ID Status Reason Start Date Expiration Date Visits Re quested Visits Authorized [id number] Closed 01/11/2024 04/10/2024 12 12 Reason Comments Results Reason Comments Cough Sore throat, raspy c ough, low grade temp, ears congested, fatigue x 5 days Reason Comments Established Patient Reason Comments Consult Colonoscopy consulta tion. Specialty Diagnoses / Procedures Referred By Contac t Referred To Contact General Surgery Diagnoses Anemia in stage 4 chronic kidney disease (HCC) (HCC) Encounter for screening colonoscopy Procedures CONSULT TO GENERAL SURGERY OFFICE/OUTPATIENT [facility] 60 MINUTES Schuyler Abrams, DO [address] [place] [address] Referral ID Status Reason Start Date Expiration Date V isits Requested Visits Authorized [id number] Closed PCP Requested Referral 09/02/2024 09/01/2025 1 1 Care Teams (unrecognized sec tion and content) Management Planner Relationship Specialty Start Date End Date NaumoffNabila PCP - General Cardiology 02/23/01 Christina Leonard, DO Primary Staff Physician Cardiology 02/01/19 Management Planner Relationship Specialty Start Date End Date Naumoff, Nabila Floresome PCP - General Cardiology 02/23/01 Christina Leonard DO Primary Staff Physician Cardiology 02/01/19 Management Planner Relationship Specialty Start Date End Date NaumoffNabila Elliott PCP - General Cardiology 02/23/01 Christina Leonard, DO Primary Staff Physician Cardiology 02/01/19 Management Planner Relationship Specialty Start Date End Date NaumoffNabila Elliott PCP - General Cardiology 02/23/01 Christina Leonard DO Primary Staff Physician Cardiology 02/01/19 Management Planner Relationship Specialty Start Date End Date Naumoff, Nabila Elliott PCP - General Cardiology 02/23/01 Christina Leonard DO Primary Staff Physician Cardiology 02/01/19 Management Planner Relationship Specialty Start Date End Date Naumoff Nabila Gallagher PCP - General Cardiology 02/23/01 Christina Leonard DO Primary Staff Physician Cardiology 02/01/19 Management Planner Relationship Specialty Start Date End Date NaumoffNabila PCP - General Cardiology 02/23/01 Christina Leonard, DO Primary Staff Physician Cardiology 02/01/19 Management Planner Relationship Specialty Start Date End Date Naumoff, Nabila Gallagher PCP - General Cardiology 02/23/01 Christina Leonard, DO Primary Staff Physician Cardiology 02/01/19 Management Planner Relationship Specialty Start Date End Date NaumoffNabilaome PCP - General Cardiology 02/23/01 Christina Leonard, DO Primary Staff Physician Cardiology 02/01/19 Management Planner Relationship Specialty Start Date End Date NaumoffNabila PCP - General Cardiology 02/23/01 Christina Leonard DO Primary Staff Physician Cardiology 02/01/19 Management Planner Relationship Specialty Start Date End Date NaumoffNabila PCP - General Cardiology 02/23/01 Christina Leonard, DO Primary Staff Physician Cardiology 02/01/19 Management Planner Relationship Specialty Start Date End Date NaumoffNabilaome PCP - General Cardiology 02/23/01 Christina Leonard, DO Primary Staff Physician Cardiology 02/01/19 Management Planner Relationship Specialty Start Date End Date Nabila Gomez PCP - General Cardiology 02/23/01 Christina Leonard DO Primary Staff Physician Cardiology 02/01/19 Management Planner Relationship Specialty Start Date End Date Nabila Gomez PCP - General Cardiology 02/23/01 Christina Leonard DO Primary Staff Physician Cardiology 02/01/19 Management Planner Relationship Specialty Start Date End Date Nabila Gomez PCP - General Cardiology 02/23/01 Christina Leonard DO Primary Staff Physician Cardiology 02/01/19 Management Planner Relationship Specialty Start Date End Date Nabila Gomez PCP - General Cardiology 02/23/01 Christina Leonard DO Primary Staff Physician Cardiology 02/01/19 Management Planner Relationship Specialty Start Date End Date Nabila Gomez PCP - General Cardiology 02/23/01 Christina Leonard DO Primary Staff Physician Cardiology 02/01/19 Management Planner Relationship Specialty Start Date End Date NaumoffNabila PCP - General Cardiology 02/23/01 Christina Leonard DO Primary Staff Physician Cardiology 02/01/19 Management Planner Relationship Specialty Start Date End Date NaumoffNabila PCP - General Cardiology 02/23/01 Christina Leonard DO Primary Staff Physician Cardiology 02/01/19 Management Planner Relationship Specialty Start Date End Date NaumoffNabila PCP - General Cardiology 02/23/01 Christina Leonard DO Primary Staff Physician Cardiology 02/01/19 Management Planner Relationship Specialty Start Date End Date NaumoffNabila PCP - General Cardiology 02/23/01 Christina Leonard DO Primary Staff Physician Cardiology 02/01/19 Management Planner Relationship Specialty Start Date End Date NaumoffNabila PCP - General Cardiology 02/23/01 Christina Leonard DO Primary Staff Physician Cardiology 02/01/19 Management Planner Relationship Specialty Start Date End Date NaumoffNabila PCP - General Cardiology 02/23/01 Christina Leonard DO Primary Staff Physician Cardiology 02/01/19 Management Planner Relationship Specialty Start Date End Date NaumNabila horvath PCP - General Cardiology 02/23/01 Christina Leonard DO Primary Staff Physician Cardiology 02/01/19 Management Planner Relationship Specialty Start Date End Date NaumoffNabilaome PCP - General Cardiology 02/23/01 Christina Leonard DO Primary Staff Physician Cardiology 02/01/19 Management Planner Relationship Specialty Start Date End Date NaumoffNabila PCP - General Cardiology 02/23/01 Christina Leonard DO Primary Staff Physician Cardiology 02/01/19 Management Planner Relationship Specialty Start Date End Date NaumoffNabilaome PCP - General Cardiology 02/23/01 Christina Leonard DO Primary Staff Physician Cardiology 02/01/19 Management Planner Relationship Specialty Start Date End Date NaumoffNabilaome PCP - General Cardiology 02/23/01 Christina Leonard DO Primary Staff Physician Cardiology 02/01/19 Management Planner Relationship Specialty Start Date End Date NaumNabila horvath PCP - General Cardiology 02/23/01 Christina Leonard DO Primary Staff Physician Cardiology 02/01/19 Management Planner Relationship Specialty Start Date End Date NaumNabila horvathome PCP - General Cardiology 02/23/01 Christina Leonard DO Primary Staff Physician Cardiology 02/01/19 Management Planner Relationship Specialty Start Date End Date NaumNabila horvath PCP - General Cardiology 02/23/01 Christina Leonard DO Primary Staff Physician Cardiology 02/01/19 Management Planner Relationship Specialty Start Date End Date NaumoffNabilaome PCP - General Cardiology 02/23/01 Christina Leonard DO Primary Staff Physician Cardiology 02/01/19 Management Planner Relationship Specialty Start Date End Date NaumNabila horvathome PCP - General Cardiology 02/23/01 Christina Leonard DO Primary Staff Physician Cardiology 02/01/19 Management Planner Relationship Specialty Start Date End Date Nabila Gomez PCP - General Cardiology 02/23/01 hCristina Leonard DO Primary Staff Physician Cardiology 02/01/19 Management Planner Relationship Specialty Start Date End Date Nabila Gomez PCP - General Cardiology 02/23/01 Christina Leonard DO Primary Staff Physician Cardiology 02/01/19 Management Planner Relationship Specialty Start Date End Date Nabila Gomez PCP - General Cardiology 02/23/01 Christina Leonard DO Primary Staff Physician Cardiology 02/01/19 Management Planner Relationship Specialty Start Date End Date Nabila Gomez PCP - General Cardiology 02/23/01 Christina Leonard DO Primary Staff Physician Cardiology 02/01/19 Care Team (unrecognized sect ion and content) Care Team Personnel Name: NABILA GOMEZ MD Position: P4 Physician - Primary Care Member Role: Primary Care Physician Address: Address: [address] [place] [facility] [place] [address]- Care Team Related Persons Name: KT SAUCEDA Inactive Administered Medications - up to 3 most recent administrations Administered Medications (un recognized section and content) Medication Order MAR Action Action Date Dose Rate Site epoetin irlanda-epbx 10,000 Units injection (RETACRIT) 10,000 Units, SUBCUTANEOUS, ONCE, 1 dose, On Thu01/12/24 at 1030, Refrigerate - Protect From Light - Do Not Shake Given 01/12/2024 10:24 AM EST 10,000 Units Arm, Left Inactive Administered Medications - up to 3 most recent administrations Medication Order MAR Action Action Date Dose Rate Site epoetin irlanda-epbx 10,000 Units injection (RETACRIT) 10,000 Units, SUBCUTANEOUS, ONCE, 1 dose, On Thu02/23/24 at 0930, Refrigerate - Protect From Light - Do Not Shake Given 02/23/2024 9:42 AM EDT 10,000 Units Arm, Right FOR RECORDS PERTAINING TO PATIENTS WHO ARE OR HAVE BEEN ENROLLED IN A CHEMICAL DEPENDENCY/SUBSTANCEABUSE PROGRAM, SOME INFORMATION MAY BE OMITTED. This clinical summary was aggregated from multiple sources. Caution should be exercised in using it in the provision of clinical care. This summary normalizes information from multiple sources, and as a consequence, information in this document may materially change the coding, format and clinical context of patient data. In addition, data may be omitted in some cases. CLINICAL DECISIONS SHOULD BE BASED ON THE PRIMARY CLINICAL RECORDS. [employer] provides no warranty or guarantee of the accuracy or completeness of information in this document.
== END | disposition home or self-care (01) ==
PROVIDERS: PCP Family Medicine; Referring Provider Otolaryngology; Visit Provider Otolaryngology
DX: J32.9 Chronic sinusitis, unspecified (principal)
CPT/HCPCS: 87070; 87077; 87186; 87205

== ENCOUNTER 2025-09-21 11:25 | Emergency (ER) | payer MEDICARE, OTHER, SELFPAY ==
[2025-09-21 11:26] VITALS: BP 192/108; PULSE 72; RESP 14; TEMP 36.9; O2SAT 99; BMI 23.3
[2025-09-21 11:31] VITALS: BP 185/104; PULSE 74; RESP 18; O2SAT 98
--- NOTE | 2025-09-21 12:04 | EDS_ITS ---
HPI History of Present Illness Chief Complaint: Chest Other Narrative Narrative: Patient is a 49-year-old female with past medical history of chronic kidney disease status post transplant in 2012, autoimmune disease lupus, osteoporosis who presents to the emergency department the chief complaint of a left shoulder/neck pain. Patient states that she currently is in the works of going back on the transplant list at [facility] where she received her previous kidney she states that her kidney is failing again. States that she is in the process of obtaining a bunch of outpatient blood work. She states that she has had this pain for about a week now it is constant nothing makes this better or worse. States that she tried to go to the chiropractor and to see if this does help and she notes that and has not. She notes that her blood pressure has been elevated lately as well and feels like she is retaining fluid again. She states that her transplant team at once called once workup is done here [facility] Medical History MRSA (methicillin resistant staph aureus) culture positive Osteoporosis Autoimmune disease CKD (chronic kidney disease) Home Medications ?Medication ?Instructions ?Recorded ?Last Taken ?Type amlodipine 5 mg tablet 5 mg PO DAILY 01/08/14 Unkno wn History carvedilol 12.5 mg tablet 12.5 mg PO BID 01/08/14 Unkn own History darbepoetin [place] in polysorbat 25 25 mcg subcut PRN AR N Not Specified 01/08/14 Unknown History mcg/0.42 mL in polysorbate injection syringe (Aranesp) famotidine 20 mg tablet 20 mg PO BID 01/08/14 Unknow n History filgrastim 300 mcg/mL injection 300 mcg subcut X1 PRN Not Specified 01/08/14 Unknown History solution (Neupogen) furosemide 20 mg tablet 20 mg PO DAILY PRN PRN Swell ing 01/08/14 Unknown History levothyroxine 50 mcg tablet 50 mcg PO DAILY 01/08/14 U nknown History mycophenolate mofetil 250 mg 500 mg PO BID 01/08/14 Un known History capsule prednisone 5 mg tablet 5 mg PO DAILY 01/08/14 Unkno wn History simvastatin 20 mg tablet 20 mg PO DAILY 01/08/14 Unkn own History tacrolimus 1 mg capsule, 2 mg PO BREAKFAST 01/08/14 U nknown History immediate-release tacrolimus 1 mg capsule, 3 mg PO QHS 12/13/14 Unknown History immediate-release ondansetron 4 mg disintegrating 4 mg PO Q8H PRN PRN Na usea #10 tabs 12/14/14 Unknown Rx tablet promethazine 25 mg rectal 25 mg RECTAL Q6H PRN PRN Óscar sea ##6 12/14/14 Unknown Rx suppository (Promethegan) allopurinol 100 mg tablet 200 mg PO DAILY 12/03/18 Unk nown History ferrous sulfate, dried 159 mg (45 65 mg PO BID 0 Unknown History mg iron) tablet,extended release hydrocodone-acetaminophen 5-325mg 1 tab PO Q6H PRN PRN Pain 3 days 04/27/23 Unknown Rx 5mg-325mg #10 TABLETS Allergy/AdvReac Type Severity Reaction Status Date / Time Sulfa (Sulfonamide Allergy Itching Verified 09/21/25 11:31 Antibiotics) Family History Mother Thyroid disorder Hypertension Cancer Heart disease Arthritis Father Diabetes Heart disease Hypertension High cholesterol Sister Breast cancer Surgical History S/P removal of left ovary (~2003) Hx of removal of ovary (~2001) Kidney transplant recipient (~2006) Social History household members: spouse housing: house Smoking Status: Never smoker ROS ROS ED ROS Narrative Constitutional: Denies any fever, chills, headaches Eyes: Denies double vision Cardiovascular: Complains of left-sided chest discomfort as noted above denies palpitations Respiratory: Denies coughing wheezing shortness of breath Abdomen: Denies abdominal pain nausea vomiting diarrhea : Denies urinary symptoms Neurological: Denies numbness, weeks, tingling Musculoskeletal: Complains of left shoulder/neck pain as noted above Skin: Denies any rashes or lesions EXAM Physical Exam Narrative Exam Narrative: General: Patient is lying in bed rest comfortably did not appear to be acute distress Head: Atraumatic, normocephalic Eyes: PERRL bilaterally, EOMI bilaterally, no conjunctival injection noted Neck: Soft, supple, trachea midline Cardiovascular: Regular rate and rhythm Respiratory: Clear to auscultation bilaterally Extremities: +5/5 strength noted in the bilateral lower extremities, +4/5 strength noted in the left upper extremity this is secondary to pain she states, radial pulses +2/4 in bilateral extremities Neurological: Patient following commands knew that she was at [facility] years 2024 Skin: Warm, dry, intact no rashes or lesions noted Const Vital Signs: 09/21/25 11:26 09/21/25 11:31 09/21/25 11:31 Temperature 98.4 F Temperature Source Oral Pulse Rate 72 74 Respiratory Rate 14 18 Respiratory Effort Normal Non-Labored Blood Pressure 192/108 H 185/104 H Blood Pressure Mean 136 131 Pulse Ox 99 98 Oxygen Delivery Method Room Air 09/21/25 13:00 Temperature Temperature Source Pulse Rate 72 Respiratory Rate 18 Respiratory Effort Blood Pressure 161/95 H Blood Pressure Mean 117 Pulse Ox 99 Oxygen Delivery Method Room Air MDM MDM MDM Narrative Medical decision making narrative: Patient is a 49-year-old female who presented to the emergency department with a chief complaint of chest discomfort in the left side as well as shoulder pain. On the differential diagnosis includes but not limited to ACS, CHF, pathologic fracture, frozen shoulder. Once workup is obtained reviewed she will be reevaluated. Patient's CBC reviewed and showed a white blood count is normal at 6.9, hemoglobin was noted to be 8.1, platelet count 164. Patient INR normal at 1, PT of 13.3. Patient sodium is 141, potassium of 4.5, creatinine was elevated 3.04. Patient's troponin was 14 with a delta troponin of 13, EKG was reviewed as well which showed sinus rhythm at a rate of 70 bpm. Patient proBNP elevated 3575. Patient's x-ray of her shoulder reviewed by myself by radiology showed no acute fracture or dislocation. Patient chest x-ray reviewed myself by radiology which showed trace pleural effusions. I reached out to the transplant team however they have yet to get back to us at 2:20 PM. I discussed the results with the patient and she states that these numbers are stable despite what we have in our database here however last labs we have here for her are from 2022. She states that she has follow-up with her kidney doctor and team coming up and she states that she is getting blood work 1-2 times a week to keep a close eye on things. 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 I discussed with her that she should return if worsening symptoms or other concerns. She is agreeable this plan all question concerns answered she is discharged home in s table condition. Lab Data Labs: Laboratory Results - last 24 hr 09/21/25 09/21/25 11:54 13:35 WBC 6.9 RBC 2.86 L Hgb 8.1 L Hct 25.6 L MCV 89.5 MCH 28.3 MCHC 31.6 L RDW Std Deviation 47.8 H RDW Coeff of [place]man 14.7 H Plt Count 164 MPV 10.2 Immature Gran % (Auto) 0.900 Neut % (Auto) 80.7 H Lymph % (Auto) 8.9 L [place] % (Auto) 8.5 Eos % (Auto) 0.9 Baso % (Auto) 0.1 Absolute Neuts (auto) 5.5 Absolute Lymphs (auto) 0.61 L Nucleated RBC % 0 PT 13.3 INR 1.0 APTT 27.5 Sodium 141 Potassium 4.5 Chloride 108 Carbon Dioxide 19.1 L Anion Gap 14 BUN 54 H Creatinine 3.04 H Estim Creat Clear Calc 18.31 L Est GFR (MDRD) Non-Af 18 L BUN/Creatinine Ratio 17.9 Glucose 95 Calcium 9.3 Troponin T High Sens 14 Troponin T Hi Sens 2 Hr 13 NT pro BNP II 3575 H Radiography Diagnostic Testing: Clinical Impression(s) from Imaging Studies Chest X-Ray 09/21/25 12:15 IMPRESSION: Trace pleural effusions. Reading Location: [place] [address] Shoulder X-Ray 09/21/25 12:15 IMPRESSION: NO ACUTE FRACTURE OR DISLOCATION. Reading Location: [id number] Discharge Plan Triage Chief Complaint: Chest Other ED Provider: Angelito Gray Dx/Rx/DC Orders Clinical Impression: CKD (chronic kidney disease), Chest pain, Left shoulder pain Prescriptions: No Action carvedilol 12.5 MG tablet 12.5 mg PO BID mycophenolate mofetil 250 MG capsule 500 mg PO BID prednisone 5 MG tablet 5 mg PO DAILY filgrastim [Neupogen] 300 MCG/ML solution 300 mcg subcut X1 PRN (Reason: Not Specified) amlodipine 5 MG tablet 5 mg PO DAILY famotidine 20 MG tablet 20 mg PO BID levothyroxine 50 MCG tablet 50 mcg PO DAILY simvastatin 20 MG tablet 20 mg PO DAILY furosemide 20 MG tablet 20 mg PO DAILY PRN PRN (Reason: Swelling) tacrolimus 1 MG capsule 2 mg PO BREAKFAST Patient Comments: 1 MG QPM darbepoetin [place] in polysorbat [Aranesp (in polysorbate)] 25 MCG/0.42 ML syringe 25 mcg subcut PRN PRN (Reason: Not Specified) Patient Comments: DOSE ADJUSTED ACCORDING TO WBC LEVELS tacrolimus 1 MG capsule 3 mg PO QHS ondansetron 4 MG tablet 4 mg PO Q8H PRN PRN (Reason: Nausea) Qty: 10 0RF promethazine [Promethegan] 25 MG suppository 25 mg RECTAL Q6H PRN PRN (Reason: Nausea) Qty: 6 0RF allopurinol 100 MG tablet 200 mg PO DAILY ferrous sulfate, dried 159 MG tablet extended release 65 mg PO BID hydrocodone-acetaminophen 5-325 mg tablet 1 tab PO Q6H PRN PRN (Reason: Pain) 3 Days Qty: 10 0RF Primary Care Provider: Enrique Cardoso Referrals: Enrique Cardoso MD [Primary Care Provider, Family Practice] Activity Restrictions/Additional Instructions: Follow-up with your doctors in the outpatient setting. Return with worsening symptoms or other concerns. Print Language: [place] Disposition Disposition: Home, Self Care
--- NOTE | 2025-09-21 12:15 | RAD_ITS ---
PROCEDURE: CHEST PA AND LATERAL 09/21/2025 REASON FOR EXAM: CHEST PAIN TECHNIQUE: Procedure Code: RADCXR Modality: DX Procedure: CHEST PA AND LATERAL COMPARISON: February 10, 2020 FINDINGS: The lungs are adequately aerated bilaterally with trace posterior pleural effusion. No pneumothorax or focal airspace disease. Right-sided chest port with distal tip at the superior cavoatrial junction. Atheromatous changes of the aorta without cardiomegaly. Coarse pulmonary markings. Osseous structures are age-appropriate. RAD/Chest PA and Lateral IMPRESSION: Trace pleural effusions. Reading Location: [place] [address]
--- NOTE | 2025-09-21 12:15 | RAD_ITS ---
PROCEDURE: SHOULDER MIN 2 VIEWS 09/21/2025 REASON FOR EXAM: PAIN TECHNIQUE: Procedure Code: RADSH Modality: DX Procedure: SHOULDER MIN 2 VIEWS Laterality: Left shoulder COMPARISON: None FINDINGS: Bones: No fracture. Joints: Normal alignment of the acromioclavicular and glenohumeral joints. Soft tissues: Surgical clip in the left axilla. Other: RAD/Shoulder min 2 Views IMPRESSION: NO ACUTE FRACTURE OR DISLOCATION. Reading Location: [id number]
[2025-09-21 12:17] LABS: Hematocrit 25.6 % (37-47); Hemoglobin 8.1 g/dL (12.0-15.0); Immature Granulocytes Count 0.060 X10^3/uL (0.0-0.0); Mean Corp Hgb Conc 31.6 g/dL (32-36); Mean Corpuscular Volume 89.5 fL (81-99); Mean Platelet Vol. 10.2 fl (6.2-12.0); NRBC Flagged by Analyzer 0 % (0-5); Platelet Count 164 K/mm3 (150-450); RBC Distribution Width CV 14.7 % (11.6-14.6); RBC Distribution Width SD 47.8 fl (35.1-43.9); Red Blood Count 2.86 M/mm3 (4.2-5.4); White Blood Count 6.9 K/mm3 (4.4-11.0)
[2025-09-21 12:20] LABS: Prothrombin Time (Protime)PT. 13.3 SECONDS (11.7-14.9)
[2025-09-21 12:22] LABS: Partial Thromboplast Time 27.5 Seconds (24.1-36.2)
[2025-09-21 13:00] VITALS: BP 161/95; PULSE 72; RESP 18; O2SAT 99
[2025-09-21 13:04] LABS: Anion Gap 14 (5-15); BUN 54 mg/dL (4-19); BUN/Creat Ratio 17.9 RATIO (10-20); Calcium,Total 9.3 mg/dL (7.6-11.0); Carbon Dioxide 19.1 mmol/L (21.0-32.0); Chloride 108 mmol/L (98-108); Estimated Creatinine Clearance 18.31 ml/min (50-250); Glucose 95 mg/dL (70-99); Potassium 4.5 mmol/L (3.3-5.1); Pro- Brain NATRIURETIC PEPTIDE 3575 pg/mL (<=900); Troponin T High Sensitivity 14 ng/L (<=14)
[2025-09-21 14:21] LABS: Troponin T High Sens 2 HR 13 ng/L (<=14)
== END 2025-09-21 14:47 | disposition home or self-care (01) ==
PROVIDERS: Emergency Provider Emergency Medicine; PCP Family Medicine; Visit Provider Emergency Medicine
DX: R07.89 Other chest pain (principal); N18.9 Chronic kidney disease, unspecified; M25.512 Pain in left shoulder; Z94.0 Kidney transplant status
CPT/HCPCS: 36591; 71046; 73030; 80048; 83880; 84484; 85025; 85610; 85730; 93005; 99283; A4216